=== PATIENT | female | born 1970 | race Caucasian/White ===

== ENCOUNTER → 2017-10-19 13:46 | Outpatient (POV) | payer OTHER, SELFPAY | PROVIDERS: Family Provider Emergency Medicine; PCP Nurse Practitioner Family; Visit Provider Internal Medicine | DX: Z00.00 Encounter for general adult medical examination without abnormal findings (principal) ==

== ENCOUNTER → 2017-11-24 12:55 | Outpatient (CLI) | payer OTHER, SELFPAY ==
[2017-11-24 14:27] VITALS: PULSE 74; PULSE 78
[2017-11-24 14:28] VITALS: BP 115/70; BP 140/85; PULSE 74; PULSE 98; RESP 16; RESP 18; O2SAT 96; O2SAT 97
== END ==
PROVIDERS: Family Provider Emergency Medicine; PCP Nurse Practitioner Family; Visit Provider Internal Medicine
DX: J45.909 Unspecified asthma, uncomplicated (principal)
CPT/HCPCS: 94060; 94618; 94640; 94727; 94729

== ENCOUNTER → 2017-12-10 19:09 | Outpatient (CLI) | payer OTHER, SELFPAY ==
--- NOTE | 2017-12-10 19:12 | XR_ITS ---
XR knee LT 3V COMPARISON: Right knee 06/21/2009 HISTORY: Left knee pain TECHNIQUE: AP lateral and oblique views FINDINGS: There is no fracture or loose body and is no degenerative change. The patella is intact and is no effusion. IMPRESSION: Negative left knee
== END ==
PROVIDERS: PCP Emergency Medicine; Visit Provider Emergency Medicine
DX: M25.562 Pain in left knee (principal)
CPT/HCPCS: 73562

== ENCOUNTER → 2017-12-31 10:07 | Outpatient (CLI) | payer OTHER, SELFPAY ==
[2017-12-31 14:26] LABS: Basophils # 0.1 K/mm3 (0-0.2); Basophils % 0.9 % (0.1-2.0); Eosinophils # 0.2 K/mm3 (0.0-0.4); Hematocrit 34.7 % (37.0-47.0); Lymphocytes # 2.4 K/mm3 (0.7-4.5); Lymphocytes % 40.2 K/mm3 (10-50); Mean Corpuscular HGB Conc 34.4 g/dL (31.8-35.4); Mean Corpuscular Hemoglobin 27.8 pg (27.0-31.2); Mean Corpuscular Volume 80.8 fl (81-99); Mean Platelet Volume 8.5 fl (7.4-10.4); Monocytes # 0.4 K/mm3 (0.1-1.0); Monocytes % 6.8 % (1.7-9.3); Neutrophils # 2.9 K/mm3 (1.8-7.8); Platelet Count 198 K/mm3 (142-424); Red Cell Distribution Width 14.5 % (11.5-17.5)
[2017-12-31 14:37] LABS: Amphetamine/Metha Screen,Urine Negative ng/mL (<1000); Barbiturates Screen,Urine Negative ng/mL (<200); Benzodiazepines Screen,Urine Negative ng/mL (200); Cannabinoid Screen,Urine Negative ng/mL (<50); Cocaine Screen,Urine Negative ng/g (<300); Methadone Screen,Urine Negative ng/mL (<300); Opiate Screen,Urine Negative ng/mL (<300); Phencyclidine Screen,Urine Negative ng/mL (<25)
[2017-12-31 15:08] LABS: Alanine Aminotransferase 76 U/L (12-78); Albumin Level 4.1 gm/dL (3.4-5.0); Albumin/Globulin Ratio 1.1 (1.1-1.8); Alkaline Phosphatase 90 U/L (46-116); Anion Gap 15.6 mEq/L (5-15); Aspartate Amino Transferase 61 U/L (15-37); Bilirubin,Total 0.5 mg/dL (0.2-1.0); Blood Urea Nitrogen 13 mg/dL (7-18); Calcium 9.4 mg/dL (8.5-10.1); Carbon Dioxide 28 mmol/L (21.0-32.0); Chloride 99 mmol/L (98-107); Cholesterol 169 mg/dL (140-200); Creatinine,Serum 1.32 mg/dL (0.55-1.02); Estimated Glomerular Filt Rate 44 ml/min (>60); GFR (African American) 53 ML/MIN (>60); Globulin 3.6 gm/dl (1.3-3.2); Glucose 159 mg/dL (74-106); HDL Cholesterol 28 mg/dL (29-89); LDL Cholesterol 87 mg/dL (0-130); Potassium 3.6 mmoL/L (3.5-5.1); Sodium 139 mmol/L (136-145); T4 (Thyroxine) 9.7 ug/dl (4.7-13.3); Thyroid Stimulating Hormone 2.15 uIU/ml (0.358-3.740); Total Protein,Serum 7.7 gm/dL (6.4-8.2); Triglycerides 269 mg/dL (30-200); VLDL Cholesterol 54 mg/dL (0-40)
[2018-01-01 09:16] LABS: Creatinine, Urine 211.4 mg/dL (Not Estab.); Microalbumin, Urine 8.7 ug/mL (Not Estab.)
[2018-01-01 20:14] LABS: Vitamin B12 292 pg/mL (232-1245); Vitamin D 25 Hydroxy 39.1 ng/mL (30.0-100.0)
== END ==
PROVIDERS: Visit Provider Nurse Practitioner Family
DX: E11.9 Type 2 diabetes mellitus without complications (principal); R53.83 Other fatigue; Z79.899 Other long term (current) drug therapy
CPT/HCPCS: 80053; 80061; 80305; 82043; 82570; 82607; 82652; 83036; 84436; 84443; 85025

== ENCOUNTER → 2018-01-25 13:45 | Outpatient (POV) | payer OTHER, SELFPAY | PROVIDERS: Family Provider Emergency Medicine; PCP Emergency Medicine; Visit Provider Internal Medicine | DX: Z00.00 Encounter for general adult medical examination without abnormal findings (principal) ==

== ENCOUNTER 2018-02-14 15:00 | Outpatient (RCR) | payer OTHER, SELFPAY | END 2018-02-14 15:01 | disposition home or self-care (01) | LOC: PT 15:00 | PROVIDERS: Family Provider Emergency Medicine; PCP Emergency Medicine; Visit Provider Orthopaedic Surgery | DX: S80.02XA Contusion of left knee, initial encounter (principal) | CPT/HCPCS: 97010; 97014; 97033; 97035; 97110; 97163; G0283 ==

== ENCOUNTER → 2018-04-14 15:54 | Outpatient (CLI) | payer OTHER, SELFPAY ==
--- NOTE | 2018-04-14 15:56 | MM_ITS ---
MM Dig screening mamm BI w/CAD ORDERING PHYSICIAN : Bryce Keenan MD PATIENT AGE: 47 years GENDER: Female COMPARISON: January 2016, March 2017 INDICATION: ITS.REASON: Routine Mammogram Screening no hormones. No new complaints. Family history. Paternal grandmother with breast cancer TECHNIQUE: Standard CC and MLO images were obtained. R2 CAD reviewed. FINDINGS: Minimal fibroglandular elements with moderate diffuse fatty replacement yield lower density breast.. No dominant mass nor suspicious calcifications either breast. . No architectural distortion. No significant new findings. CAD computer review highlights no areas of concern either. Bilateral follow-up in one year recommended IMPRESSION: Stable bilateral mammogram with no significant new findings Follow up one year recommended BI-RADS Category: 1 Negative RECOMMENDED FOLLOW-UP: 1YR 1 YEAR FOLLOW-UP (A letter has been sent to the patient regarding results of the study.)
== END ==
PROVIDERS: Family Provider Emergency Medicine; PCP Emergency Medicine; Visit Provider Obstetrics & Gynecology
DX: Z12.31 Encounter for screening mammogram for malignant neoplasm of breast (principal)
CPT/HCPCS: 77067

== ENCOUNTER → 2018-04-21 08:08 | Outpatient (REF) | payer OTHER, SELFPAY ==
[2018-04-21 13:54] LABS: Basophils # 0.1 K/mm3 (0-0.2); Eosinophils # 0.2 K/mm3 (0.0-0.4); Hemoglobin 12.7 g/dL (12.2-16.2); Lymphocytes # 2.4 K/mm3 (0.7-4.5); Lymphocytes % 40.6 K/mm3 (10-50); Mean Corpuscular HGB Conc 32.6 g/dL (31.8-35.4); Mean Corpuscular Hemoglobin 26.6 pg (27.0-31.2); Mean Corpuscular Volume 81.6 fl (81-99); Mean Platelet Volume 8.5 fl (7.4-10.4); Monocytes # 0.3 K/mm3 (0.1-1.0); Monocytes % 5.1 % (1.7-9.3); Neutrophils # 2.9 K/mm3 (1.8-7.8); Neutrophils % 49.2 % (37.0-80.0); Platelet Count 189 K/mm3 (142-424); Red Blood Count 4.78 M/mm3 (4.20-5.40); Red Cell Distribution Width 15.2 % (11.5-17.5)
[2018-04-21 14:28] LABS: Hemoglobin A1C 7.7 % (0.0-7.0)
[2018-04-21 14:47] LABS: Erythrocyte Sedimentation Rate 44 mm/hr (0-20)
[2018-04-21 14:48] LABS: Alanine Aminotransferase 79 U/L (12-78); Albumin/Globulin Ratio 1.1 (1.1-1.8); Alkaline Phosphatase 108 U/L (46-116); Anion Gap 15.4 mEq/L (5-15); Aspartate Amino Transferase 56 U/L (15-37); Bilirubin,Total 0.5 mg/dL (0.2-1.0); Blood Urea Nitrogen 14 mg/dL (7-18); Calcium 9.2 mg/dL (8.5-10.1); Carbon Dioxide 29 mmol/L (21.0-32.0); Chloride 101 mmol/L (98-107); Chol/HDL Ratio 7.8 (1-3.5); Cholesterol 218 mg/dL (140-200); Creatinine,Serum 1.21 mg/dL (0.55-1.02); Estimated Glomerular Filt Rate 48 ml/min (>60); GFR (African American) 58 ML/MIN (>60); Globulin 3.8 gm/dl (1.3-3.2); Glucose 185 mg/dL (74-106); HDL Cholesterol 28 mg/dL (29-89); Potassium 3.4 mmoL/L (3.5-5.1); Sodium 142 mmol/L (136-145); T4 (Thyroxine) 8.5 ug/dl (4.7-13.3); Thyroid Stimulating Hormone 7.08 uIU/ml (0.358-3.740); Total Protein,Serum 7.8 gm/dL (6.4-8.2)
[2018-04-21 14:49] LABS: Triglycerides 461 mg/dL (30-200)
[2018-04-22 09:11] LABS: Vitamin D 25 Hydroxy 28.4 ng/mL (30.0-100.0)
== END ==
LOC: LAB 08:08
PROVIDERS: Visit Provider Nurse Practitioner Family
DX: R53.83 Other fatigue (principal); M79.7 Fibromyalgia; E11.9 Type 2 diabetes mellitus without complications; R59.9 Enlarged lymph nodes, unspecified
CPT/HCPCS: 80053; 80061; 82652; 83036; 84436; 84443; 85025; 85651

== ENCOUNTER → 2018-05-02 13:40 | Outpatient (POV) | payer OTHER, SELFPAY | PROVIDERS: Family Provider Emergency Medicine; PCP Emergency Medicine; Visit Provider Nurse Practitioner Acute Care | DX: Z00.00 Encounter for general adult medical examination without abnormal findings (principal) ==

== ENCOUNTER → 2018-05-23 15:57 | Outpatient (CLI) | payer OTHER, SELFPAY ==
[2018-05-23 16:22] LABS: Basophils # 0.1 K/mm3 (0-0.2); Basophils % 0.9 % (0.1-2.0); Eosinophils # 0.2 K/mm3 (0.0-0.4); Eosinophils % 3.4 % (0.1-12.0); Hematocrit 36.5 % (37.0-47.0); Hemoglobin 12.4 g/dL (12.2-16.2); Lymphocytes # 2.2 K/mm3 (0.7-4.5); Lymphocytes % 32.6 K/mm3 (10-50); Mean Corpuscular HGB Conc 33.9 g/dL (31.8-35.4); Mean Corpuscular Hemoglobin 26.9 pg (27.0-31.2); Mean Corpuscular Volume 79.2 fl (81-99); Mean Platelet Volume 7.5 fl (7.4-10.4); Monocytes # 0.3 K/mm3 (0.1-1.0); Monocytes % 4.9 % (1.7-9.3); Neutrophils # 3.8 K/mm3 (1.8-7.8); Neutrophils % 58.2 % (37.0-80.0); Platelet Count 174 K/mm3 (142-424); Red Blood Count 4.61 M/mm3 (4.20-5.40); White Blood Count 6.6 K/mm3 (4.8-10.8)
[2018-05-23 16:56] LABS: Anion Gap 10.9 mEq/L (5-15); Blood Urea Nitrogen 13 mg/dL (7-18); Carbon Dioxide 32 mmol/L (21.0-32.0); Chloride 102 mmol/L (98-107); Creatinine,Serum 1.12 mg/dL (0.55-1.02); Estimated Glomerular Filt Rate 53 ml/min (>60); GFR (African American) 64 ML/MIN (>60); Glucose 227 mg/dL (74-106); Potassium 3.9 mmoL/L (3.5-5.1); Sodium 141 mmol/L (136-145)
== END ==
PROVIDERS: Nurse Practitioner Family; PCP Emergency Medicine; Visit Provider Otolaryngology
DX: Z01.818 Encounter for other preprocedural examination (principal); D49.2 Neoplasm of unspecified behavior of bone, soft tissue, and skin
CPT/HCPCS: 36415; 80048; 85025; 93005

== ENCOUNTER → 2018-06-30 08:40 | Outpatient (CLI) | payer OTHER, SELFPAY ==
[2018-06-30 09:54] LABS: Blood Urea Nitrogen 11 mg/dL (7-18); Creatinine,Serum 0.96 mg/dL (0.55-1.02); Estimated Glomerular Filt Rate 63 ml/min (>60); GFR (African American) 76 ML/MIN (>60)
== END ==
PROVIDERS: PCP Emergency Medicine; Visit Provider Otolaryngology
DX: L72.11 Pilar cyst (principal)
CPT/HCPCS: 36415; 82565; 84520

== ENCOUNTER → 2018-07-01 13:24 | Outpatient (CLI) | payer OTHER, SELFPAY ==
--- NOTE | 2018-07-01 13:27 | CT_ITS ---
CT soft tissue neck w con Ordering Physician: Luis Felipe Davis MD Patient Age: 48 years: Female HISTORY: ITS.REASON: Pilar Cyst Palpable Knot on left side of neck. 2 months. TECHNIQUE: Axial Helical CT scanning performed the neck following 75 cc Isovue 370. Axial sagittal and coronal reconstructions performed on CT workstation.. All CT scans at this facility used one or more dose reduction techniques , viz: automatic exposure control, ma/Kv adjustment per patient's size, (including targeted exam where dose matched to the indication; i.e. head); or iterative reconstruction technique COMPARISON :No previous neck studies head CT November 2008 is of little benefit is not included FINDINGS A skin marker is placed over the palpable area at the left neck. No significant findings are seen here. There may be slightly generous fatty tissue which could reflect underlying lipoma possibly although no discrete well-defined lipoma evident.. No significant adenopathy or mass. Only a few small nodes at the posterior cervical chain bilateral.. One of the more generous nodes is seen just beneath the skin marker/palpable area. This benign-appearing reactive nodes at posterior left neck measures up to 10 mm length X 7 mm x 5 mm. Nonspecific benign-appearing nodule, node with central lucency reflecting a normal medullary fat. Otherwise note the sternocleidomastoid muscle may be slightly generous of posteriorly on the left than right but this is merely anatomical variation. See no discrete skin lesion. No Epidermal inclusion cyst or or pilar cyst identified Otherwise Scattered small/moderate benign nodes in neck bilateral. For example a small node is seen just inferior to the angle of mandible and left a few small nodes at the anterior cervical chain deep to the parotid. Scattered small nodes throughout posterior cervical chain bilaterally. No significant adenopathy or mass is seen at the mid and lower neck. Thyroid appears normal. Epiglottis hypopharynx appear satisfactory Note generous volume parotid glands bilaterally.. Symmetric Anatomical variation. No focal lesions or findings here. Slightly generous volume symmetric submandibular glands also noted but these within normal limits no significant plaque or stenosis at the proximal internal carotid arteries. Only tiny minimal calcified plaque at the right carotid bifurcation. The patient near edentulous with only a few anterior incisor is remaining at mandible.Mandible intact with right and left TMJ intact.. Mastoid air cells are well-developed and clear. IACs middle air unremarkable. Apices of lungs clear. Base of skull intact. Only Trace mucosal thickening inferior left maxillary sinus otherwise maxillary sinuses are clear. Mild mucosal thickening left ethmoid air cell.. note: This study was dictated with a voice-recognition system. There may be typographical error is related to such. If they are significant please notify us for corrections IMPRESSION 1. A skin marker was placed over the palpable area. No significant findings here.. Only note tiny 10 mm length X 7 mm lymph benign-appearing lymph node, just deep to this skin marker at palpable area.,. Conceivably this modest size benign node could be palpable, but fairly deep with benign appearance, unimpressive.. Not of significant concern.. Also note slightly redundant tissue with slight generous fatty tissue deep to the palpable area.- This appearance could reflects small underlying lipoma. Again No area of significant concern. 2. . Otherwise Scattered small reactive nodes at neck bilaterally but no significant adenopathy or mass.. No significant neck pathology 3. Incidental note Generous volume low density fatty parotid bilaterally.... Generous volume submandibul
== END ==
PROVIDERS: PCP Emergency Medicine; Visit Provider Otolaryngology
DX: L72.11 Pilar cyst (principal)
CPT/HCPCS: 70491

== ENCOUNTER → 2018-08-08 11:22 | Outpatient (POV) | payer OTHER, SELFPAY | PROVIDERS: Visit Provider Nurse Practitioner Acute Care | DX: Z00.00 Encounter for general adult medical examination without abnormal findings (principal) ==

== ENCOUNTER → 2018-08-08 14:58 | Outpatient (CLI) | payer OTHER, SELFPAY ==
[2018-08-11 12:37] LABS: Occult Blood,Stool Positive (Negative)
== END ==
PROVIDERS: Visit Provider Internal Medicine Gastroenterology
DX: K92.1 Melena (principal)
CPT/HCPCS: 82272; G0328

== ENCOUNTER → 2018-08-09 13:30 | Outpatient (CLI) | payer OTHER, SELFPAY ==
[2018-08-11 12:37] LABS: Occult Blood,Stool Positive (Negative)
== END ==
PROVIDERS: Visit Provider Internal Medicine Gastroenterology
DX: K92.1 Melena
CPT/HCPCS: 82272; G0328

== ENCOUNTER → 2018-08-10 22:28 | Outpatient (CLI) | payer OTHER, SELFPAY ==
[2018-08-11 12:37] LABS: Occult Blood,Stool Positive (Negative)
== END ==
PROVIDERS: Visit Provider Internal Medicine Gastroenterology
DX: K92.1 Melena (principal)
CPT/HCPCS: 82272; G0328

== ENCOUNTER → 2018-08-13 13:57 | Outpatient (CLI) | payer OTHER, SELFPAY ==
[2018-08-13 15:53] LABS: Basophils # 0.1 K/mm3 (0-0.2); Eosinophils # 0.2 K/mm3 (0.0-0.4); Eosinophils % 2.1 % (0.1-12.0); Hematocrit 43.2 % (37.0-47.0); Hemoglobin 14.3 g/dL (12.2-16.2); Lymphocytes # 2.9 K/mm3 (0.7-4.5); Lymphocytes % 33.1 % (10-50); Mean Corpuscular HGB Conc 33.1 g/dL (31.8-35.4); Mean Corpuscular Volume 78.5 fl (81-99); Monocytes # 0.3 K/mm3 (0.1-1.0); Monocytes % 3.8 % (1.7-9.3); Neutrophils # 5.2 K/mm3 (1.8-7.8); Neutrophils % 59.9 % (37.0-80.0); Platelet Count 273 K/mm3 (142-424); Red Blood Count 5.51 M/mm3 (4.20-5.40); Red Cell Distribution Width 15.3 % (11.5-17.5); White Blood Count 8.6 K/mm3 (4.8-10.8)
[2018-08-13 16:09] LABS: Alanine Aminotransferase 86 U/L (12-78); Albumin Level 4.5 gm/dL (3.4-5.0); Albumin/Globulin Ratio 0.9 (1.1-1.8); Alkaline Phosphatase 157 U/L (46-116); Amylase 33 U/L (25-115); Anion Gap 21.4 mEq/L (5-15); Aspartate Amino Transferase 65 U/L (15-37); Bilirubin,Total 0.7 mg/dL (0.2-1.0); Blood Urea Nitrogen 15 mg/dL (7-18); Calcium 9.8 mg/dL (8.5-10.1); Carbon Dioxide 24 mmol/L (21.0-32.0); Chloride 90 mmol/L (98-107); Creatinine,Serum 1.72 mg/dL (0.55-1.02); Estimated Glomerular Filt Rate 32 ml/min (>60); GFR (African American) 39 ML/MIN (>60); Globulin 4.8 gm/dl (1.3-3.2); Glucose 243 mg/dL (74-106); Lipase 152 u/L (73-393); Potassium 3.4 mmoL/L (3.5-5.1); Sodium 132 mmol/L (136-145); Total Protein,Serum 9.3 gm/dL (6.4-8.2)
[2018-08-13 16:24] LABS: Troponin I < 0.02 ng/ml (0.00-0.06)
== END ==
PROVIDERS: PCP Emergency Medicine; Visit Provider Emergency Medicine
DX: R10.9 Unspecified abdominal pain (principal)
CPT/HCPCS: 80053; 82150; 83690; 84484; 85025

== ENCOUNTER → 2018-08-26 18:16 | Outpatient (CLI) | payer OTHER, SELFPAY ==
[2018-08-29 18:26] LABS: C-Peptide 11.7 ng/mL (1.1-4.4)
== END ==
PROVIDERS: Visit Provider Emergency Medicine
DX: E11.9 Type 2 diabetes mellitus without complications (principal)
CPT/HCPCS: 84681

== ENCOUNTER → 2018-10-10 08:38 | Outpatient (CLI) | payer BC, SELFPAY ==
--- NOTE | 2018-10-10 08:47 | XR_ITS ---
XR chest 2V HISTORY: Nonsmoker .: CONGESTION,COUGH ORDERING PHYSICIAN: Anshul Stephen MD PATIENT AGE: 48 years Technique: PA and lateral chest COMPARISON: 09/11/2018 2 view chest. 02/11/2018 2 view chest FINDINGS: The lungs are well expanded and clear with no focal pneumonia or no discrete acute findings. Upper normal Central markings upper normal prominence in could reflect mild central airway inflammatory changes & bronchitis but unimpressive. Heart tremaine and mediastinal structures satisfactory. No pleural effusion. No pneumothorax. Chest wall and T-spine appear intact. IMPRESSION. No focal pneumonia. Nothing definitely acute. Central markings upper normal prominence.- Good conceivably reflect mild bronchitis but minimal & will give more nonspecific
== END ==
PROVIDERS: PCP Emergency Medicine; Visit Provider Emergency Medicine
DX: R05 Cough (principal); R09.89 Other specified symptoms and signs involving the circulatory and respiratory systems
CPT/HCPCS: 71046

== ENCOUNTER → 2018-10-10 09:03 | Outpatient (POV) | payer BC, SELFPAY | PROVIDERS: Visit Provider Nurse Practitioner Acute Care | DX: Z00.00 Encounter for general adult medical examination without abnormal findings (principal) ==

== ENCOUNTER → 2018-11-24 08:49 | Outpatient (CLI) | payer BC, SELFPAY ==
--- NOTE | 2018-11-24 08:55 | CT_ITS ---
CT abdomen pelvis w con CLINICAL INDICATION: Melena, anemia ITS.REASON: MELENA, ANEMIA ORDERING PHYSICIAN: Moo Shields MD PATIENT AGE: 48 years COMPARISON: 02/11/2018 TECHNIQUE: Axial images obtained with sagittal and coronal reformats. All CT scans at the facility use one or more dose reduction, viz: automated exposure control, ma/kV adjustment per patient size (including targeted exams where dose is matched to indication, i.e. head), or iterative reconstruction technique. Double phase imaging is performed with arterial and portal venous phase PROCEDURE: Oral Contrast: Enteroview IV Contrast: 75 mL's Optiray 350. FINDINGS: The lung bases are clear. There are postcholecystectomy changes with diffuse fatty liver. No enhancing liver lesions are evident. The spleen, adrenal glands, and pancreas have an unremarkable appearance. There is a 1.6-1.1 cm lymph node superior to the head of the pancreas appear stable. Other smaller periportal nodes are present. Stable. No renal or ureteral calculi. No hydronephrosis. Unremarkable appendix. The small bowel has an unremarkable appearance. No evidence of small bowel obstruction. No focal mucosal thickening or masses or strictures apparent. Terminal ileum has an unremarkable appearance. No fistulas or abscess. There is some mild diffuse thickening of the jejunum in the left upper quadrant. This may be due to underdistention. Mild enteritis is also a consideration. The remaining small bowel has an unremarkable appearance. Prior hysterectomy. No pelvic mass or abnormal fluid collection. No evidence of diverticulitis. IMPRESSION: 1. There is some mild nonspecific thickening of the mucosa in the jejunum in the left upper quadrant. This could be related to mild enteritis or underdistention. No focal constricting lesions are evident. The terminal ileum has an unremarkable appearance. No small bowel masses or other significant anomalies are evident. 2. Fatty liver
[2018-11-24 09:46] LABS: Blood Urea Nitrogen 19 mg/dL (7-18); Creatinine,Serum 1.15 mg/dL (0.55-1.02); Estimated Glomerular Filt Rate 51 ml/min (>60); GFR (African American) 61 ML/MIN (>60)
--- NOTE | 2018-11-24 10:23 | HMH.ITSHM ---
Current Home Medications as stated by this patient Manisha Leija or assisted sales representative. []DUBEXETINE,FUROSEMIDE,VICTOZA,JANRET METOCLOPRAMIDE,PRAMIPEXOLE LYRICA SIMVASTATIN,ZOLPIDEM
== END ==
PROVIDERS: PCP Emergency Medicine; Visit Provider Internal Medicine Gastroenterology
DX: K92.1 Melena (principal); D64.9 Anemia, unspecified
CPT/HCPCS: 36415; 74177; 82565; 84520

== ENCOUNTER → 2019-01-26 01:10 | Outpatient (CLI) | payer BC, SELFPAY | PROVIDERS: PCP Emergency Medicine; Visit Provider Emergency Medicine | DX: R05 Cough (principal) | CPT/HCPCS: 87070; 87077; 87186; 87205 ==

== ENCOUNTER → 2019-01-31 09:16 | Outpatient (CLI) | payer BC, SELFPAY ==
[2019-01-31 13:07] LABS: Alanine Aminotransferase 59 U/L (12-78); Albumin Level 3.5 gm/dL (3.4-5.0); Alkaline Phosphatase 144 U/L (46-116); Anion Gap 13.4 mEq/L (5-15); Aspartate Amino Transferase 45 U/L (15-37); Bilirubin,Total 0.5 mg/dL (0.2-1.0); Blood Urea Nitrogen 10 mg/dL (7-18); Calcium 8.9 mg/dL (8.5-10.1); Carbon Dioxide 30 mmol/L (21.0-32.0); Chloride 104 mmol/L (98-107); Chol/HDL Ratio 6.1 (1-3.5); Cholesterol 177 mg/dL (140-200); Creatinine,Serum 1.03 mg/dL (0.55-1.02); Estimated Glomerular Filt Rate 58 ml/min (>60); GFR (African American) 70 ML/MIN (>60); Globulin 3.4 gm/dl (1.3-3.2); Glucose 146 mg/dL (74-106); HDL Cholesterol 29 mg/dL (29-89); LDL Cholesterol 83 mg/dL (0-130); Potassium 3.4 mmoL/L (3.5-5.1); Sodium 144 mmol/L (136-145); Total Protein,Serum 6.9 gm/dL (6.4-8.2); Triglycerides 326 mg/dL (30-200); VLDL Cholesterol 65 mg/dL (0-40)
[2019-02-01 10:14] LABS: Creatinine, Urine 211.7 mg/dL (Not Estab.); Microalbumin, Urine 18.6 ug/mL (Not Estab.)
== END ==
PROVIDERS: Visit Provider Internal Medicine Endocrinology, Diabetes & Metabolism
DX: E11.65 Type 2 diabetes mellitus with hyperglycemia (principal); E11.29 Type 2 diabetes mellitus with other diabetic kidney complication; N18.3 Chronic kidney disease, stage 3 (moderate); Z79.4 Long term (current) use of insulin
CPT/HCPCS: 36415; 80053; 80061; 82043; 82570

== ENCOUNTER 2019-02-02 14:33 | Emergency (ER) | payer BC, SELFPAY ==
[2019-02-02 14:35] VITALS: BMI 31.5
--- NOTE | 2019-02-02 14:35 | XR_ITS ---
XR chest 2V HISTORY: ITS.REASON: shortness of air ORDERING PHYSICIAN: Anshul Haq MD PATIENT AGE: 48 years COMPARISON: 10/10/2018 FINDINGS: The cardiomediastinal silhouette and pulmonary vascularity are within normal limits. The lungs are clear without infiltrates, suspicious nodules, or pleural effusions. No acute bony abnormalities. IMPRESSION: Negative chest, no acute finding
[2019-02-02 14:39] VITALS: BP 113/72; PULSE 79; RESP 16; TEMP 36.7; O2SAT 99; BMI 31.8
[2019-02-02 15:05] LABS: Basophils # 0.1 K/mm3 (0-0.2); Basophils % 1.2 % (0.1-2.0); Eosinophils # 0.2 K/mm3 (0.0-0.4); Eosinophils % 3.3 % (0.1-12.0); Hematocrit 35.2 % (37.0-47.0); Hemoglobin 12.4 g/dL (12.2-16.2); Lymphocytes # 2.2 K/mm3 (0.7-4.5); Lymphocytes % 42.8 % (10-50); Mean Corpuscular HGB Conc 35.2 g/dL (31.8-35.4); Mean Corpuscular Hemoglobin 26.2 pg (27.0-31.2); Mean Corpuscular Volume 74.4 fl (81-99); Monocytes # 0.2 K/mm3 (0.1-1.0); Monocytes % 4.7 % (1.7-9.3); Neutrophils # 2.4 K/mm3 (1.8-7.8); Platelet Count 180 K/mm3 (142-424); Red Blood Count 4.74 M/mm3 (4.20-5.40); Red Cell Distribution Width 14.7 % (11.5-17.5); White Blood Count 5.1 K/mm3 (4.8-10.8)
[2019-02-02 15:12] LABS: Alanine Aminotransferase 65 U/L (12-78); Albumin Level 3.4 gm/dL (3.4-5.0); Albumin/Globulin Ratio 0.9 (1.1-1.8); Alkaline Phosphatase 141 U/L (46-116); Anion Gap 12.1 mEq/L (5-15); Aspartate Amino Transferase 53 U/L (15-37); Bilirubin,Total 0.6 mg/dL (0.2-1.0); Blood Urea Nitrogen 12 mg/dL (7-18); Carbon Dioxide 30 mmol/L (21.0-32.0); Chloride 104 mmol/L (98-107); Creatinine Clearance Estimated 87 mL/min (50-200); Creatinine,Serum 1.04 mg/dL (0.55-1.02); Estimated Glomerular Filt Rate 57 ml/min (>60); GFR (African American) 69 ML/MIN (>60); Globulin 3.8 gm/dl (1.3-3.2); Glucose 120 mg/dL (74-106); Potassium 3.1 mmoL/L (3.5-5.1); Sodium 143 mmol/L (136-145); Total Protein,Serum 7.2 gm/dL (6.4-8.2)
--- NOTE | 2019-02-02 15:25 | HMH.EDGENADL ---
ED Disposition Clinical Impression: Respiratory tract infection Disposition: Home, Self-Care Condition on Discharge: Good Instructions: DI for Shortness of Breath Prescriptions: levoFLOXacin [Levaquin 750mg tablet] 750 mg PO DAILY #5 tab predniSONE [Prednisone 50mg Tab] 50 mg PO DAILY 5 Days #5 tab Referrals: Anshul Stephen MD [Primary Care Provider] - - Critical Care Critical Care Time: No Attestation: On 02/02/19, the high probability of a clinically significant, sudden or life threatening deterioration of the following system(s) required my full and direct attention, intervention and personal management. The time I documented below is in addition to time spent performing reported procedures but includes the following listed in this critical care notation. Medical Decision Making - Medical Records Medical records reviewed: Yes: I reviewed the patient's medical records. - Efren Inquiry Pt receiving controlled substance: No Efren was queried for this patient: No Vital Signs: 02/02/19 14:39 02/02/19 15:28 02/02/19 15:39 Temperature 98.0 F Temperature Source Temporal Artery Scan Pulse Rate Pulse Rate [Right Brachial] 79 71 70 Respiratory Rate 16 Blood Pressure [Right Arm] 113/72 107/69 L 104/78 L Blood Pressure Mean [Right Arm] 85 81 86 Blood Pressure Source [Right Arm] Automatic Cuff Blood Pressure Position [Right Arm] Sitting 02 Sat by Pulse Oximetry 99 94 L 98 Oxygen Delivery Method Room Air 02/02/19 15:55 02/02/19 17:21 Temperature Temperature Source Pulse Rate 67 Pulse Rate [Right Brachial] 71 Respiratory Rate Blood Pressure [Right Arm] 120/85 Blood Pressure Mean [Right Arm] 96 Blood Pressure Source [Right Arm] Blood Pressure Position [Right Arm] 02 Sat by Pulse Oximetry 98 98 Oxygen Delivery Method Room Air - Lab Data Lab results reviewed: Yes: I reviewed the patient's lab results. Lab Results 02/02/19 14:45: WBC 5.1, RBC 4.74, Hgb 12.4, Hct 35.2 L, MCV 74.4 L, MCH 26.2 L, MCHC 35.2, RDW 14.7, Plt Count 180, MPV 8.0, Neut % (Auto) 48.0, Lymph % (Auto) 42.8, Laurens % (Auto) 4.7, Eos % (Auto) 3.3, Baso % (Auto) 1.2, Neut # (Auto) 2.4, Lymph # (Auto) 2.2, Laurens # (Auto) 0.2, Eos # (Auto) 0.2, Baso # (Auto) 0.1 02/02/19 14:45: Sodium 143, Potassium 3.1 L, Chloride 104, Carbon Dioxide 30, Anion Gap 12.1, BUN 12, Creatinine 1.04 H, Estimated Creat Clear 87, Estimated GFR 57 L, Est GFR ( Amer) 69, Glucose 120 H, Calcium 9.0, Total Bilirubin 0.6, AST 53 H, ALT 65, Alkaline Phosphatase 141 H, Total Protein 7.2, Albumin 3.4, Globulin 3.8 H, Albumin/Globulin Ratio 0.9 L 02/02/19 14:45: Lactate 1.0 02/02/19 14:45: Influenza Type A Ag Negative, Influenza Type B Ag Negative Result diagrams: 02/02/19 14:45 02/02/19 14:45 Orders (Tests/Meds): ED MEDICATIONS Generic Name Dose Route Start Last Admin Trade Name Freq PRN Reason Stop Dose Admin Levofloxacin/Dextrose 750 mg in 150 mls @ 100 mls/hr 02/02/19 15:45 02/02/19 15:58 Levofloxacin 750mg/150ml Premix IV 02/16/19 15:44 100 mls/hr Q24H ROCKY Administration Protocol Discontinued Medications Generic Name Dose Route Start Last Admin Trade Name Freq PRN Reason Stop Dose Admin Albuterol/Ipratropium 3 ml 02/02/19 14:57 02/02/19 15:15 Duoneb 3ml Neb IH 02/02/19 14:58 3 ml ONCE ONE Administration Ketorolac Tromethamine 30 mg 02/02/19 16:46 02/02/19 16:47 Toradol 30mg/Ml Vial IV 02/02/19 16:47 30 mg ONCE ONE Administration Methylprednisolone Sodium Succinate 125 mg 02/02/19 15:26 02/02/19 15:28 Solu-Medrol 125mg/2ml Vial IV 02/02/19 15:27 125 mg ONCE ONE Administration Potassium Chloride 40 meq 02/02/19 15:26 02/02/19 15:58 Klor-Con 20meq Tablet PO 02/02/19 15:27 40 meq ONCE ONE Administration ORDERS Category Date Time Status Blood Culture Stat Micro 02/02/19 14:45 Received General Adult HPI - General Chief complaint: Sh
[2019-02-02 15:28] VITALS: BP 107/69; PULSE 71; O2SAT 94
--- NOTE | 2019-02-02 15:34 | ED_ITS ---
ED Disposition Clinical Impression: Respiratory tract infection Disposition: Home, Self-Care Condition on Discharge: Good Instructions: DI for Shortness of Breath Prescriptions: levoFLOXacin [Levaquin 750mg tablet] 750 mg PO DAILY #5 tab predniSONE [Prednisone 50mg Tab] 50 mg PO DAILY 5 Days #5 tab Referrals: Anshul Stephen MD [Primary Care Provider] - - Critical Care Critical Care Time: No Attestation: On 02/02/19, the high probability of a clinically significant, sudden or life threatening deterioration of the following system(s) required my full and direct attention, intervention and personal management. The time I documented below is in addition to time spent performing reported procedures but includes the following listed in this critical care notation. Medical Decision Making - Medical Records Medical records reviewed: Yes: I reviewed the patient's medical records. - Efren Inquiry Pt receiving controlled substance: No Efren was queried for this patient: No Vital Signs: 02/02/19 14:39 02/02/19 15:28 02/02/19 15:39 Temperature 98.0 F Temperature Source Temporal Artery Scan Pulse Rate Pulse Rate [Right Brachial] 79 71 70 Respiratory Rate 16 Blood Pressure [Right Arm] 113/72 107/69 L 104/78 L Blood Pressure Mean [Right Arm] 85 81 86 Blood Pressure Source [Right Arm] Automatic Cuff Blood Pressure Position [Right Arm] Sitting 02 Sat by Pulse Oximetry 99 94 L 98 Oxygen Delivery Method Room Air 02/02/19 15:55 02/02/19 17:21 Temperature Temperature Source Pulse Rate 67 Pulse Rate [Right Brachial] 71 Respiratory Rate Blood Pressure [Right Arm] 120/85 Blood Pressure Mean [Right Arm] 96 Blood Pressure Source [Right Arm] Blood Pressure Position [Right Arm] 02 Sat by Pulse Oximetry 98 98 Oxygen Delivery Method Room Air - Lab Data Lab results reviewed: Yes: I reviewed the patient's lab results. Lab Results 02/02/19 14:45: WBC 5.1, RBC 4.74, Hgb 12.4, Hct 35.2 L, MCV 74.4 L, MCH 26.2 L, MCHC 35.2, RDW 14.7, Plt Count 180, MPV 8.0, Neut % (Auto) 48.0, Lymph % (Auto) 42.8, Ramsey % (Auto) 4.7, Eos % (Auto) 3.3, Baso % (Auto) 1.2, Neut # (Auto) 2.4, Lymph # (Auto) 2.2, Ramsey # (Auto) 0.2, Eos # (Auto) 0.2, Baso # (Auto) 0.1 02/02/19 14:45: Sodium 143, Potassium 3.1 L, Chloride 104, Carbon Dioxide 30, Anion Gap 12.1, BUN 12, Creatinine 1.04 H, Estimated Creat Clear 87, Estimated GFR 57 L, Est GFR ( Amer) 69, Glucose 120 H, Calcium 9.0, Total Bilirubin 0.6, AST 53 H, ALT 65, Alkaline Phosphatase 141 H, Total Protein 7.2, Albumin 3.4, Globulin 3.8 H, Albumin/Globulin Ratio 0.9 L 02/02/19 14:45: Lactate 1.0 02/02/19 14:45: Influenza Type A Ag Negative, Influenza Type B Ag Negative Result diagrams: 02/02/19 14:45 02/02/19 14:45 Orders (Tests/Meds): ED MEDICATIONS Generic Name Dose Route Start Last Admin Trade Name Freq PRN Reason Stop Dose Admin Levofloxacin/Dextrose 750 mg in 150 mls @ 100 mls/hr 02/02/19 15:45 02/02/19 15:58 Levofloxacin 750mg/150ml Premix IV 02/16/19 15:44 100 mls/hr Q24H ROCKY Administration Protocol Discontinued Medic
--- NOTE | 2019-02-02 15:35 | CT_ITS ---
CT chest wo con HISTORY: Cough, recurrent pneumonia ITS.REASON: recurrent pneumonia ORDERING PHYSICIAN: Anshul Haq MD PATIENT AGE: 48 years COMPARISON: None Technique: Axial images obtained. Sagittal, and coronal reformatted images are also generated and reviewed. All CT scans at the facility use one or more dose reduction, viz: automated exposure control, ma/kV adjustment per patient size (including targeted exams where dose is matched to indication, i.e. head), or iterative reconstruction technique. FINDINGS: HEART: Unremarkable. Normal heart size. No significant pericardial effusion. MEDIASTINAL AND HILAR STRUCTURES: No mediastinal or hilar mass evident. No dominant adenopathy. PULMONARY ARTERIES: No pulmonary embolus evident. AORTA: No acute finding. No thoracic aortic aneurysm or dissection evident LUNGS: Unremarkable. No mass or consolidation. PLEURAL SPACES: No significant effusion. No evidence of pneumothorax. BONY STRUCTURES: No acute bony abnormalities apparent LYMPH NODES: No enlarged lymph nodes evident UPPER ABDOMEN: There is diffuse fatty liver infiltration. There has been prior cholecystectomy ADDITIONAL FINDINGS: No other significant abnormalities IMPRESSION: No acute finding of the chest. No evidence of pneumonia or other significant anomalies
[2019-02-02 15:39] VITALS: BP 104/78; PULSE 70; O2SAT 98
[2019-02-02 15:55] VITALS: PULSE 67; O2SAT 98
[2019-02-02 17:21] VITALS: BP 120/85; PULSE 71; O2SAT 98
[2019-02-02 17:40] VITALS: BP 118/75; PULSE 67; RESP 18; TEMP 36.7
== END 2019-02-02 17:43 | disposition home or self-care (01) ==
PROVIDERS: Emergency Provider Emergency Medicine; PCP Emergency Medicine
DX: J06.9 Acute upper respiratory infection, unspecified (principal); E11.9 Type 2 diabetes mellitus without complications; K21.9 Gastro-esophageal reflux disease without esophagitis; E78.5 Hyperlipidemia, unspecified; Z87.891 Personal history of nicotine dependence
CPT/HCPCS: 71046; 71250; 80053; 83605; 85025; 87040; 87275; 87276; 96365; 96375; 99284; J1956

== ENCOUNTER → 2019-02-06 13:51 | Outpatient (CLI) | payer BC, SELFPAY ==
[2019-02-06 15:00] LABS: Basophils % 0.2 % (0.1-2.0); Eosinophils % 0.4 % (0.1-12.0); Hematocrit 37.1 % (37.0-47.0); Hemoglobin 12.9 g/dL (12.2-16.2); Lymphocytes # 1.1 K/mm3 (0.7-4.5); Lymphocytes % 13.4 % (10-50); Mean Corpuscular HGB Conc 34.7 g/dL (31.8-35.4); Mean Corpuscular Hemoglobin 26.9 pg (27.0-31.2); Mean Corpuscular Volume 77.7 fl (81-99); Mean Platelet Volume 8.1 fl (7.4-10.4); Monocytes # 0.4 K/mm3 (0.1-1.0); Monocytes % 4.2 % (1.7-9.3); Neutrophils # 6.9 K/mm3 (1.8-7.8); Neutrophils % 81.8 % (37.0-80.0); Platelet Count 199 K/mm3 (142-424); Red Blood Count 4.77 M/mm3 (4.20-5.40); Red Cell Distribution Width 14.7 % (11.5-17.5); White Blood Count 8.4 K/mm3 (4.8-10.8)
[2019-02-06 16:10] LABS: Alanine Aminotransferase 64 U/L (12-78); Albumin Level 3.8 gm/dL (3.4-5.0); Albumin/Globulin Ratio 1.1 (1.1-1.8); Alkaline Phosphatase 160 U/L (46-116); Anion Gap 17.3 mEq/L (5-15); Aspartate Amino Transferase 37 U/L (15-37); Bilirubin,Total 0.4 mg/dL (0.2-1.0); Blood Urea Nitrogen 25 mg/dL (7-18); Calcium 8.9 mg/dL (8.5-10.1); Carbon Dioxide 25 mmol/L (21.0-32.0); Chloride 94 mmol/L (98-107); Chol/HDL Ratio 5.9 (1-3.5); Cholesterol 217 mg/dL (140-200); Creatinine,Serum 1.42 mg/dL (0.55-1.02); Estimated Glomerular Filt Rate 40 ml/min (>60); GFR (African American) 48 ML/MIN (>60); Globulin 3.6 gm/dl (1.3-3.2); HDL Cholesterol 37 mg/dL (29-89); Potassium 3.3 mmoL/L (3.5-5.1); Sodium 133 mmol/L (136-145); T4 (Thyroxine) 9.3 ug/dl (4.7-13.3); Thyroid Stimulating Hormone 1.41 uIU/ml (0.358-3.740); Total Protein,Serum 7.4 gm/dL (6.4-8.2)
[2019-02-06 16:28] LABS: Triglycerides 475 mg/dL (30-200)
[2019-02-06 16:29] LABS: Glucose 545 mg/dL (74-106)
[2019-02-06 18:11] LABS: Hemoglobin A1C 8.4 % (0.0-7.0)
[2019-02-10 06:20] LABS: Vitamin D 25 Hydroxy 25.6 ng/mL (30.0-100.0)
== END ==
PROVIDERS: Visit Provider Physician Assistant
DX: E87.6 Hypokalemia (principal); E11.9 Type 2 diabetes mellitus without complications
CPT/HCPCS: 80053; 80061; 82652; 83036; 84436; 84443; 85025

== ENCOUNTER → 2019-02-13 11:25 | Outpatient (CLI) | payer BC, SELFPAY ==
[2019-02-13 13:50] LABS: Erythrocyte Sedimentation Rate 24 mm/hr (0-20)
[2019-02-14 12:12] LABS: Anti-Centromere B Antibodies <0.2 AI (0.0-0.9); Anti-Jo-1 <0.2 AI (0.0-0.9); Anti-Smith Antibody <0.2 AI (0.0-0.9); Antichromatin Antibodies 0.2 AI (0.0-0.9); Antiscleroderma-70 Antibodies <0.2 AI (0.0-0.9); RNP Antibodies <0.2 AI (0.0-0.9); Sjogren's Anti-SS-A <0.2 AI (0.0-0.9); Sjogren's Anti-SS-B <0.2 AI (0.0-0.9)
[2019-02-14 19:57] LABS: Anti-DNA (DS) Ab Qn 13 IU/mL (0-9); Folate 11.3 ng/mL (>3.0); Vitamin B12 456 pg/mL (232-1245); Vitamin D 25 Hydroxy 35.3 ng/mL (30.0-100.0)
== END ==
PROVIDERS: Visit Provider Psychiatry & Neurology Neurology
DX: R41.3 Other amnesia (principal)
CPT/HCPCS: 36415; 82607; 82652; 82746; 85651; 86225; 86235

== ENCOUNTER → 2019-05-18 09:17 | Outpatient (CLI) | payer BC, SELFPAY ==
--- NOTE | 2019-05-18 09:20 | MM_ITS ---
PROCEDURE: MM DIG SCREENING MAMM BI W/CAD Patient Age:48Y CLINICAL INDICATION: routine screening mammogram routine screening mammogram. No hormones but no new complaints but hysterectomy. Family history: Paternal grandmother with breast cancer premenopausal COMPARISON: MM MOBILE MAMMO DIGITAL SCREEN W CAD RIKA from 03/23/2013 [facility] DIG MAMM-SCREEN RIKA from 12/28/2014 [facility] DIG MAMM-DX UNI ADD VIEWS-RT from 01/15/2015 [facility] DIG MAMM-SCREEN RIKA from 01/20/2016 [facility] DIG MAMM-SCREEN RIKA W/CAD from 04/02/2017 [facility] MM Dig screening mamm BI w/CAD from 04/14/2018 TECHNIQUE: Standard CC and MLO images were obtained. R2 CAD reviewed. FINDINGS: Low-density breast with minimal residual fibroglandular elements. Generalized fatty replacement low breast density... Regression of minimal fibroglandular elements over the series of available exams dating back to 2012 2014. No new dominant or suspicious mass. No suspicious calcifications. Bilateral follow-up 1 year recommended. IMPRESSION: Stable mammogram with no new areas of concern. BI-RAD Category: 1 Negative FOLLOW-UP: 1YR 1 Year Follow-up The (A letter has been sent to the patient regarding results of the study.) Dictated by: Jarrett Donnelly MD 05/22/2019 11:12 Electronically signed by Jarrett Donnelly MD in [place] 05/22/2019 11:12
== END ==
PROVIDERS: PCP Emergency Medicine; Visit Provider Nurse Practitioner Obstetrics & Gynecology
DX: Z12.31 Encounter for screening mammogram for malignant neoplasm of breast (principal)
CPT/HCPCS: 77067

== ENCOUNTER → 2019-06-26 08:24 | Outpatient (CLI) | payer BC, SELFPAY ==
--- NOTE | 2019-06-26 08:27 | XR_ITS ---
PROCEDURE: XR HAND LT MIN 3V CLINICAL INDICATION: ring finger pain COMPARISON: HANDL3 HAND-LT-3 VIEWS from 07/08/2014 FINDINGS: No fracture or dislocation. No lytic or blastic change. There is normal mineralization. The joint spaces are well-preserved. No significant degenerative/arthritic changes. No erosive changes evident. Other findings:There is a bandlike area of slight increased density over the distal aspect of the proximal phalanx of the 4th digit consistent with something up on the patient. This however does not obscure bony detail. IMPRESSION: No acute findings. Dictated by: Lai Benz MD 06/26/2019 10:30 Electronically signed by Lai Benz MD in [place] 06/26/2019 10:30
[2019-06-26 09:59] LABS: Basophils # 0.1 K/mm3 (0-0.2); Basophils % 0.9 % (0.1-2.0); Eosinophils # 0.3 K/mm3 (0.0-0.4); Eosinophils % 3.3 % (0.1-12.0); Hematocrit 36.8 % (37.0-47.0); Hemoglobin 12.4 g/dL (12.2-16.2); Lymphocytes % 25.5 % (10-50); Mean Corpuscular HGB Conc 33.8 g/dL (31.8-35.4); Mean Corpuscular Hemoglobin 26.7 pg (27.0-31.2); Mean Corpuscular Volume 79.1 fl (81-99); Mean Platelet Volume 8.5 fl (7.4-10.4); Monocytes # 0.3 K/mm3 (0.1-1.0); Monocytes % 4.1 % (1.7-9.3); Neutrophils # 5.2 K/mm3 (1.8-7.8); Neutrophils % 66.2 % (37.0-80.0); Platelet Count 196 K/mm3 (142-424); Red Blood Count 4.66 M/mm3 (4.20-5.40); Red Cell Distribution Width 15.3 % (11.5-17.5); White Blood Count 7.9 K/mm3 (4.8-10.8)
[2019-06-26 10:52] LABS: Alanine Aminotransferase 48 U/L (12-78); Albumin Level 3.4 gm/dL (3.4-5.0); Albumin/Globulin Ratio 0.9 (1.1-1.8); Alkaline Phosphatase 139 U/L (46-116); Anion Gap 10.9 mEq/L (5-15); Aspartate Amino Transferase 41 U/L (15-37); Bilirubin,Total 0.5 mg/dL (0.2-1.0); Blood Urea Nitrogen 9 mg/dL (7-18); Calcium 8.8 mg/dL (8.5-10.1); Carbon Dioxide 34 mmol/L (21.0-32.0); Chloride 99 mmol/L (98-107); Creatinine,Serum 0.89 mg/dL (0.55-1.02); Estimated Glomerular Filt Rate 68 ml/min (>60); GFR (African American) 82 ML/MIN (>60); Globulin 3.6 gm/dl (1.3-3.2); Glucose 191 mg/dL (74-106); Sodium 141 mmol/L (136-145)
[2019-06-26 10:56] LABS: Potassium 2.9 mmoL/L (3.5-5.1)
== END ==
PROVIDERS: PCP Emergency Medicine; Visit Provider Orthopaedic Surgery
DX: M79.645 Pain in left finger(s) (principal)
CPT/HCPCS: 36415; 73130; 80053; 85025

== ENCOUNTER → 2019-06-26 09:30 | Outpatient (CLI) | payer BC, SELFPAY | PROVIDERS: Visit Provider Orthopaedic Surgery | DX: M79.645 Pain in left finger(s) (principal) | CPT/HCPCS: 36415; 80053; 85025 ==

== ENCOUNTER → 2019-06-28 09:36 | Outpatient (CLI) | payer BC, SELFPAY ==
[2019-06-28 11:13] LABS: Anion Gap 12.2 mEq/L (5-15); Blood Urea Nitrogen 14 mg/dL (7-18); Calcium 9.2 mg/dL (8.5-10.1); Carbon Dioxide 33 mmol/L (21.0-32.0); Chloride 100 mmol/L (98-107); Creatinine,Serum 0.91 mg/dL (0.55-1.02); Estimated Glomerular Filt Rate 66 ml/min (>60); GFR (African American) 80 ML/MIN (>60); Glucose 173 mg/dL (74-106); Potassium 3.2 mmoL/L (3.5-5.1); Sodium 142 mmol/L (136-145)
== END ==
PROVIDERS: Visit Provider Physician Assistant
DX: E87.6 Hypokalemia (principal)
CPT/HCPCS: 36415; 80048

== ENCOUNTER → 2019-07-04 09:52 | Outpatient (CLI) | payer BC, SELFPAY ==
[2019-07-04 11:57] LABS: Hemoglobin A1C 6.9 % (0.0-7.0)
== END ==
PROVIDERS: Visit Provider Nurse Practitioner Family
DX: E11.9 Type 2 diabetes mellitus without complications (principal)
CPT/HCPCS: 36415; 83036

== ENCOUNTER → 2019-08-08 08:33 | Outpatient (CLI) | payer BC, SELFPAY ==
[2019-08-08 11:15] LABS: Blood Urea Nitrogen 10 mg/dL (7-18); Calcium 9.1 mg/dL (8.5-10.1); Carbon Dioxide 27 mmol/L (21.0-32.0); Chloride 100 mmol/L (98-107); Creatinine,Serum 1.14 mg/dL (0.55-1.02); Estimated Glomerular Filt Rate 51 ml/min (>60); GFR (African American) 62 ML/MIN (>60); Glucose 199 mg/dL (74-106); Sodium 141 mmol/L (136-145)
== END ==
PROVIDERS: Visit Provider Internal Medicine Endocrinology, Diabetes & Metabolism
DX: E11.65 Type 2 diabetes mellitus with hyperglycemia (principal)
CPT/HCPCS: 36415; 80048; 80053

== ENCOUNTER 2019-08-13 16:42 | Outpatient (CLI) | payer BC, SELFPAY ==
[2019-08-13 17:22] VITALS: BMI 29.9
[2019-08-13 17:24] VITALS: PULSE 78; RESP 18; O2SAT 96
== END 2019-08-13 17:29 | disposition home or self-care (01) ==
PROVIDERS: PCP Emergency Medicine; Visit Provider Nurse Practitioner
DX: M54.5 Low back pain (principal)
CPT/HCPCS: 96372

== ENCOUNTER → 2019-09-24 10:02 | Outpatient (CLI) | payer BC, SELFPAY ==
[2019-09-24 10:12] LABS: Adenovirus F 40/41, stool Not Detected (NotDetected); Astrovirus Not Detected (NotDetected); Campylobacter Not Detected (NotDetected); Clostridium Difficile A/B, PCR Not Detected (NotDetected); Cryptosporidium Not Detected (NotDetected); Cyclospora Cayetanesis Not Detected (NotDetected); Entamoeba histolytica Not Detected (NotDetected); Enteroaggregative E coli Not Detected (NotDetected); Enteropathogenic E coli Not Detected (NotDetected); Enterotoxigenic E coli Not Detected (NotDetected); Giardia lamblia Not Detected (NotDetected); Norovirus Not Detected (NotDetected); Plesimonas Shigalloides, PCR Not Detected (NotDetected); Rotavirus A Not Detected (NotDetected); Salmonella, PCR Not Detected (NotDetected); Sapovirus Not Detected (NotDetected); Shiga-like toxin E coli Not Detected (NotDetected); Shigella Enterovasive E coli Not Detected (NotDetected); Vibrio Cholerae Not Detected (NotDetected); Vibrio, PCR Not Detected (NotDetected); Yersinia Entercolitica, PCR Not Detected (NotDetected)
== END ==
PROVIDERS: PCP Emergency Medicine; Visit Provider Nurse Practitioner Family
DX: R19.7 Diarrhea, unspecified (principal)
CPT/HCPCS: 87507

== ENCOUNTER → 2019-11-01 13:23 | Outpatient (CLI) | payer OTHER, SELFPAY ==
--- NOTE | 2019-11-01 13:23 | CT_ITS ---
PROCEDURE: CT PELVIS WO CON CLINICAL INDICATION: spigelian hernia Lifting injury with left-sided lower quadrant pain, left abdominal and pelvic pain, evaluate for hernia COMPARISON: No exams were available for comparison TECHNIQUE: Axial images obtained with sagittal and coronal reformats. All CT scans at the facility use one or more dose reduction, viz: automated exposure control, ma/kV adjustment per patient size (including targeted exams where dose is matched to indication, i.e. head), or iterative reconstruction technique. FINDINGS: There is a neurostimulator device present with the power pack in the right gluteal region. The tip of the electrode is in the presacral region on the left. No acute fracture or dislocation is evident. There is a small sclerotic focus of the medial aspect of the left ilium and which may be due to small bone island. There is no evidence of abdominal wall hernia. Specifically, there is no evidence of the spigelian hernia in the left lower quadrant. Incidental note is made of fatty liver and colonic diverticula of the sigmoid colon. IMPRESSION: 1. No evidence of abdominal wall hernia. 2. No fracture or dislocation. 3. Fatty liver Dictated by: Lai Benz MD 11/02/2019 06:38 Electronically signed by Lai Benz MD in [place] 11/02/2019 06:38
== END ==
PROVIDERS: PCP Emergency Medicine; Visit Provider Emergency Medicine
DX: K43.9 Ventral hernia without obstruction or gangrene (principal); Z02.6 Encounter for examination for insurance purposes
CPT/HCPCS: 72192

== ENCOUNTER → 2019-11-13 08:33 | Outpatient (CLI) | payer OTHER, SELFPAY ==
--- NOTE | 2019-11-13 08:33 | US_ITS ---
PROCEDURE: US TRANSVAGINAL CLINICAL INDICATION: abd pain Lower pelvic pain COMPARISON: CT PELVIS WO CON from 11/01/2019 FINDINGS: There has been a prior hysterectomy. No pelvic mass apparent what appears to represent the right ovary has an unremarkable appearance at 1.4 x 1 cm. Left ovary not identified. No cul-de-sac fluid IMPRESSION: Status post hysterectomy. Unremarkable appearing right ovary. No pelvic mass or abnormal fluid collection Dictated by: Lai Benz MD 11/13/2019 09:28 Electronically signed by Lai Benz MD in [place] 11/13/2019 09:28
== END ==
PROVIDERS: PCP Emergency Medicine; Visit Provider Physician Assistant
DX: R10.9 Unspecified abdominal pain (principal)
CPT/HCPCS: 76830

== ENCOUNTER → 2019-12-05 08:25 | Outpatient (CLI) | payer OTHER, BC, SELFPAY ==
--- NOTE | 2019-12-05 08:29 | XR_ITS ---
PROCEDURE: XR LUMBAR SPINE MIN 4V CLINICAL INDICATION: back pain COMPARISON: LS5 LUMBAR SPINE 5 VIEWS from 10/15/2014 FINDINGS: According to report there are 11 typical ribs. There are rudimentary ribs involving the T12 vertebra. 5 lumbar vertebrae appear present. There is no acute fracture or dislocation. There is slight decreased disc space heights compatible with minimal degenerative disc disease L3-4 through L5-S1 similar to previous exam. Mild hypertrophic facet disease with sclerosis is seen bilaterally at L5-S1. New spinal stimulator apparatus is noted with electrode projecting over the left sacrum. IMPRESSION: Mild degenerative findings as described. Dictated by: Chemo Ramirez 12/05/2019 09:09 Electronically signed by Chemo Ramirez in [place] 12/05/2019 09:09
== END ==
PROVIDERS: PCP Emergency Medicine; Visit Provider Emergency Medicine
DX: M54.9 Dorsalgia, unspecified (principal); M54.5 Low back pain
CPT/HCPCS: 72110

== ENCOUNTER → 2019-12-14 15:57 | Outpatient (CLI) | payer OTHER, SELFPAY ==
[2019-12-14 19:20] LABS: Chloride 92 mmol/L (98-107); Sodium 137 mmol/L (136-145)
[2019-12-14 19:23] LABS: Blood Urea Nitrogen 13 mg/dl (7-17); Estimated Glomerular Filt Rate 67 ml/min (>60); GFR (African American) 81 ML/MIN (>60)
[2019-12-14 19:24] LABS: Calcium 9.3 mg/dl (8.4-10.2); Carbon Dioxide 32 mmol/L (22.0-30.0); Glucose 246 mg/dl (74-100)
== END ==
PROVIDERS: Visit Provider Emergency Medicine
DX: E87.6 Hypokalemia (principal)
CPT/HCPCS: 36415; 80048

== ENCOUNTER → 2019-12-25 09:43 | Outpatient (CLI) | payer BC, SELFPAY ==
[2019-12-25 11:00] LABS: Anion Gap 12.1 mEq/L (5-15); Blood Urea Nitrogen 12 mg/dl (7-17); Calcium 9.8 mg/dl (8.4-10.2); Carbon Dioxide 33 mmol/L (22.0-30.0); Chloride 94 mmol/L (98-107); Estimated Glomerular Filt Rate 77 ml/min (>60); GFR (African American) 93 ML/MIN (>60); Glucose 204 mg/dl (74-100); Potassium 3.1 mmoL/L (3.5-5.1); Sodium 136 mmol/L (136-145)
== END ==
PROVIDERS: Visit Provider Physician Assistant
DX: E87.6 Hypokalemia (principal)
CPT/HCPCS: 36415; 80048

== ENCOUNTER → 2020-01-09 13:16 | Outpatient (CLI) | payer BC, SELFPAY ==
[2020-01-09 14:05] LABS: Anion Gap 14.4 mEq/L (5-15); Blood Urea Nitrogen 11 mg/dl (7-17); Calcium 9.8 mg/dl (8.4-10.2); Carbon Dioxide 27 mmol/L (22.0-30.0); Chloride 97 mmol/L (98-107); Estimated Glomerular Filt Rate 67 ml/min (>60); GFR (African American) 81 ML/MIN (>60); Glucose 205 mg/dl (74-100); Potassium 3.4 mmoL/L (3.5-5.1); Sodium 135 mmol/L (136-145)
== END ==
PROVIDERS: Visit Provider Emergency Medicine
DX: E87.6 Hypokalemia (principal)
CPT/HCPCS: 80048

== ENCOUNTER 2020-02-24 11:04 | Emergency (ER) | payer BC, SELFPAY ==
[2020-02-24] VITALS (8 sets, daily range): BP systolic 97–211; BP diastolic 50–117; PULSE 67–80; RESP 16–18; TEMP 37; O2SAT 93–99; BMI 34.9
[2020-02-24 12:15] LABS: Appearance,Urine CLEAR (Clear); Bilirubin,Urine Negative (Negative); Blood, Urine Negative (Negative); Color,Urine YELLOW (Yellow); Glucose,Urine (UA) Negative (Negative); Ketones,Urine Negative (Negative); Leukocyte Esterase,Urine Negative (Negative); Microscopic, Urine URINE MICROSCOPIC (MICROSCOPIC); Nitrate,Urine Negative (Negative); Protein,Urine Negative (Negative); Urobilinogen,Urine 0.2 EU/dl (0.2)
--- NOTE | 2020-02-24 12:55 | HMH.EDABDPAI ---
ED Disposition Clinical Impression: Gastroenteritis, Acute abdominal pain Disposition: Home, Self-Care Condition on Discharge: Good Instructions: DI for Nausea -- Adult, DI for Nausea -- Child, DI for Diarrhea and Traveler's Diarrhea -- Adult, DI for Diarrhea and Traveler's Diarrhea -- Child, DI for Acute Abdomen Additional Instructions: Please follow-up with [facility]. Prescriptions: Losartan Potassium 50 mg PO DAILY 30 Days #30 tab Transmission Status: Pending to [facility] Acetaminophen with Codeine [Tylenol with Codeine #3 tablet] 1 each PO QID 3 Days #12 tablet Acetaminophen with Codeine [Tylenol with Codeine #3 tablet] 1 each PO QID 3 Days #12 tab Prescription Printed Tizanidine HCl [Zanaflex 4mg tablet] 4 mg PO TID 10 Days #30 tab Transmission Status: Pending to [facility] Ondansetron [Zofran 4mg ODT] 4 mg PO TID PRN 4 Days #15 tab.rapdis PRN Reason: Nausea Transmission Status: Pending to [facility] Referrals: Provider,Referral, [Primary Care Provider] - - Critical Care Critical Care Time: No Attestation: On 02/24/20, the high probability of a clinically significant, sudden or life threatening deterioration of the following system(s) required my full and direct attention, intervention and personal management. The time I documented below is in addition to time spent performing reported procedures but includes the following listed in this critical care notation. Medical Decision Making - Medical Records Medical records reviewed: Yes: I reviewed the patient's medical records. - Efren Inquiry Pt receiving controlled substance: No Vital Signs: 02/24/20 11:05 02/24/20 11:29 02/24/20 11:32 Temperature 98.6 F Temperature Source Oral Pulse Rate [Left Radial] 79 79 80 Respiratory Rate 18 Blood Pressure [Left Arm] 162/114 H Blood Pressure [Right Arm] 184/117 H 211/106 H Blood Pressure Mean [Left Arm] 130 Blood Pressure Mean [Right Arm] 139 141 Blood Pressure Source [Left Arm] Automatic Cuff Blood Pressure Position [Left Arm] Sitting Blood Pressure Position [Right Arm] Supine 02 Sat by Pulse Oximetry 97 95 93 L Oxygen Delivery Method Room Air Room Air Room Air 02/24/20 12:05 Temperature Temperature Source Pulse Rate [Left Radial] 79 Respiratory Rate 16 Blood Pressure [Left Arm] 107/50 L Blood Pressure [Right Arm] Blood Pressure Mean [Left Arm] 69 Blood Pressure Mean [Right Arm] Blood Pressure Source [Left Arm] Automatic Cuff Blood Pressure Position [Left Arm] Blood Pressure Position [Right Arm] 02 Sat by Pulse Oximetry 97 Oxygen Delivery Method Room Air - Lab Data Lab results reviewed: Yes: I reviewed the patient's lab results. Lab Results 02/24/20 12:05: Urine Color Yellow, Urine Appearance Clear, Urine pH 6.0, Ur Specific [place] 1.010, Urine Protein Negative, Urine Glucose (UA) Negative, Urine Ketones Negative, Urine Blood Negative, Urine Nitrate Negative, Urine Bilirubin Negative, Urine Urobilinogen 0.2, Ur Leukocyte Esterase Negative, Urine RBC None, Urine WBC None, Ur Squamous Epith Cells 5-10, Urine Bacteria None Orders (Tests/Meds): ED MEDICATIONS Generic Name Dose Route Start Last Admin Trade Name Freq PRN Reason Stop Dose Admin Sodium Chloride 1,000 mls @ 999 mls/hr 02/24/20 12:45 02/24/20 12:37 Sod Chlor 0.9% 1000ml Bag IV 02/24/20 13:45 999 mls/hr .Q1H1M ROCKY Administration Discontinued Medications Generic Name Dose Route Start Last Admin Trade Name Freq PRN Reason Stop Dose Admin Diazepam 10 mg 02/24/20 11:21 02/24/20 11:25 Valium 10mg/2ml Syringe IV 02/24/20 11:22 10 mg ONCE ONE Administration Dicyclomine HCl 10 mg 02/24/20 12:24 02/24/20 12:38 Bentyl 10mg Capsule PO 02/24/20 12:25 10 mg ONCE ONE Administration Enalaprilat 1.25 mg 02/24/20 11:30 02/24/20 11:33 Vasotec 2.5mg/2ml Vial IV 02/24/20 11:31 1.25 mg ONCE ONE A
--- NOTE | 2020-02-24 13:43 | PC.NURSE ---
Pt sleeping at this time.
--- NOTE | 2020-02-24 13:57 | CT_ITS ---
PROCEDURE: CT ABDOMEN PELVIS WO CON CLINICAL INDICATION: vomitting, abd pain COMPARISON: ABDPELW CT abdomen pelvis w con from 11/24/2018 CT PELVIS WO CON from 11/01/2019 TECHNIQUE: Axial images obtained with sagittal and coronal reformats. All CT scans at the facility use one or more dose reduction, viz: automated exposure control, ma/kV adjustment per patient size (including targeted exams where dose is matched to indication, i.e. head), or iterative reconstruction technique. FINDINGS: Lower thorax: The lower lung aguilar are clear of infiltrate, there may be minimal atelectasis at the left costophrenic angle ABDOMEN: Liver: Prominent diffuse hepatic steatosis is noted, there are no focal lesions. There is borderline hepatomegaly. Gallbladder: Post cholecystectomy Pancreas: No masses or peripancreatic fluid collections. Spleen: unremarkable Adrenals: unremarkable Kidneys/ureters: unremarkable except for tiny cortical cyst lower pole left kidney. ABDOMEN & PELVIS: Stomach bowel: Nondistended. No obvious mass or thickening. The small bowel appears normal. There is moderate scattered stool and gas in the ascending and transverse colon. The descending and sigmoid colon are decompressed. Peritoneum: No abnormal fluid collections. No obvious inflammatory changes. No free air. Lymph nodes: No enlarged lymph nodes apparent. Vasculature: No evidence of abdominal aortic aneurysm. No retroperitoneal hemorrhage evident. Bones: No acute fracture PELVIS: Reproductive: Post hysterectomy Bladder: The urinary bladder is moderately distended with urine appears normal, there is no free fluid in the pelvis. Appendix: Unremarkable. No distention or periappendiceal phlegmonous change. IMPRESSION: Prominent diffuse hepatic steatosis there is no acute abdominal or pelvic pathology identified Dictated by: Dr. David Gibson MD 02/24/2020 16:[address] David Gibson MD in [place] 02/24/2020 16:21
--- NOTE | 2020-02-24 13:57 | PC.NURSE ---
notified ER MD pt continues to report nausea, no vomitting, pt states I just feel sick . ER MD gave verbal order CT abd/pelvis no contrast
--- NOTE | 2020-02-24 14:03 | PC.NURSE ---
rad notified of CT order
--- NOTE | 2020-02-24 14:19 | PC.NURSE ---
pt to CT
--- NOTE | 2020-02-24 16:05 | CT_ITS ---
PROCEDURE: CT ABDOMEN PELVIS W CON CLINICAL INDICATION: Abdominal pain, nausea and vomiting COMPARISON: CT PELVIS WO CON from 11/01/2019 CT ABDOMEN PELVIS WO CON from 02/24/2020 TECHNIQUE: IV Contrast: 75ML OPTIRAY 350 Oral Contrast none given Axial images obtained with sagittal and coronal reformats. All CT scans at the facility use one or more dose reduction, viz: automated exposure control, ma/kV adjustment per patient size (including targeted exams where dose is matched to indication, i.e. head), or iterative reconstruction technique. FINDINGS: Lower thorax: The lower lung aguilar are clear and there is no pleural fluid. ABDOMEN: Liver: There is borderline hepatomegaly with diffuse hypodensity consistent with prominent diffuse hepatic steatosis. There are no focal lesions. Gallbladder: Post cholecystectomy Pancreas: No masses or peripancreatic fluid collections. Spleen: unremarkable Adrenals: unremarkable Kidneys/ureters: The kidneys are normal size and show symmetrical function both appearing normal. ABDOMEN & PELVIS: Stomach bowel: The stomach is moderately distended with ingested food particles and fluid. The small bowel appears normal. There is a moderate amount stool in the cecum ascending and transverse colon, the descending and sigmoid colon are decompressed. Peritoneum: No abnormal fluid collections. No obvious inflammatory changes. No free air. Lymph nodes: No enlarged lymph nodes apparent. Vasculature: No evidence of abdominal aortic aneurysm. No retroperitoneal hemorrhage evident. Bones: No acute fracture there is a neurostimulator power pack in the soft tissues right upper buttock within neurostimulator electrode leading to the presacral space left of midline. PELVIS: Reproductive: Post hysterectomy Bladder: The urinary bladder is moderately distended with urine and appears normal, there is no free fluid in the pelvis. Appendix: Unremarkable. No distention or periappendiceal phlegmonous change. IMPRESSION: Prominent diffuse hepatic steatosis with borderline hepatomegaly, moderately large amount right-sided stool, no acute abdominal or pelvic pathology identified Dictated by: Dr. David Gibson MD 02/24/2020 17:[address] David Gibson MD in [place] 02/24/2020 17:00
[2020-02-24 16:15] LABS: Monoscreen (Rapid) Negative (Negative)
[2020-02-24 16:18] LABS: Basophils # 0.1 K/mm3 (0-0.2); Basophils % 1.1 % (0.1-2.0); Eosinophils # 0.2 K/mm3 (0.0-0.4); Eosinophils % 2.8 % (0.1-12.0); Hematocrit 41.1 % (37.0-47.0); Hemoglobin 14.1 g/dL (12.2-16.2); Lymphocytes # 2.4 K/mm3 (0.7-4.5); Lymphocytes % 29.7 % (10-50); Mean Corpuscular HGB Conc 34.3 g/dL (31.8-35.4); Mean Corpuscular Hemoglobin 27.2 pg (27.0-31.2); Mean Corpuscular Volume 79.3 fl (81-99); Mean Platelet Volume 9.3 fl (7.4-10.4); Monocytes # 0.4 K/mm3 (0.1-1.0); Monocytes % 5.1 % (1.7-9.3); Neutrophils # 4.9 K/mm3 (1.8-7.8); Neutrophils % 61.4 % (37.0-80.0); Platelet Count 214 K/mm3 (142-424); Red Blood Count 5.18 M/mm3 (4.20-5.40); Red Cell Distribution Width 15.4 % (11.5-17.5)
[2020-02-24 16:20] LABS: Alanine Aminotransferase 62 U/L (12-78); Albumin/Globulin Ratio 1.4 (1.1-1.8); Alkaline Phosphatase 138 U/L (38-126); Anion Gap 13.6 mEq/L (5-15); Aspartate Amino Transferase 95 U/L (14-36); Bilirubin,Total 0.8 mg/dl (0.2-1.3); Blood Urea Nitrogen 10 mg/dl (7-17); Calcium 10.2 mg/dl (8.4-10.2); Carbon Dioxide 32 mmol/L (22.0-30.0); Chloride 94 mmol/L (98-107); Creatinine Clearance Estimated 116 mL/min (50-200); Estimated Glomerular Filt Rate 67 ml/min (>60); GFR (African American) 81 ML/MIN (>60); Globulin 3.6 g/dL (1.3-3.2); Glucose 179 mg/dl (74-100); Potassium 3.6 mmoL/L (3.5-5.1); Sodium 136 mmol/L (136-145); Total Protein,Serum 8.6 g/dl (6.3-8.2)
== END 2020-02-24 18:30 | disposition home or self-care (01) ==
PROVIDERS: Emergency Provider Family Medicine
DX: K52.9 Noninfective gastroenteritis and colitis, unspecified (principal); K21.9 Gastro-esophageal reflux disease without esophagitis; E78.5 Hyperlipidemia, unspecified; E03.9 Hypothyroidism, unspecified; G43.709 Chronic migraine without aura, not intractable, without status migrainosus; Z87.891 Personal history of nicotine dependence
CPT/HCPCS: 74176; 74177; 80053; 81001; 85025; 86318; 96365; 96366; 96375; 96376; 99284; J2405; Q9967

== ENCOUNTER → 2020-05-21 08:07 | Outpatient (CLI) | payer OTHER, BC, SELFPAY ==
--- NOTE | 2020-05-21 08:23 | MM_ITS ---
PROCEDURE: MM DIG SCREENING MAMM BI W/CAD Digital Breast Tomosynthesis Included CLINICAL INDICATION: SCREENING There is no personal or family history of breast cancer. COMPARISON: MG DMSB DIG MAMM-SCREEN RIKA W/CAD from 04/02/2017 MG SCBI MM Dig screening mamm BI w/CAD from 04/14/2018 MG MM DIG SCREENING MAMM BI W/CAD from 05/18/2019 TECHNIQUE: Standard CC and MLO images and 3D Tomosynthesis was obtained. R2 CAD reviewed. FINDINGS: The breasts are composed primarily of fat with scattered fibroglandular densities throughout each breast. There are stable benign-appearing nodular densities near the axillary tail right breast likely intramammary nodes. There is a benign-appearing calcification left breast. There is no suspicious lesion and no suspicious microcalcifications. IMPRESSION: Fibrofatty parenchyma with no suspicious lesions seen BI-RAD Category: 2 Benign Finding(s) FOLLOW-UP: 1YR 1 Year Follow-up (A letter has been sent to the patient regarding results of the study.) Dictated by: Dr. David Gibson MD 05/23/2020 19:08 Dr. David Gibson MD in [place] 05/23/2020 19:08
== END ==
PROVIDERS: PCP Emergency Medicine; Visit Provider Nurse Practitioner Obstetrics & Gynecology
DX: Z12.31 Encounter for screening mammogram for malignant neoplasm of breast (principal)
CPT/HCPCS: 77063; 77067

== ENCOUNTER → 2020-06-06 16:21 | Outpatient (CLI) | payer OTHER, SELFPAY | PROVIDERS: PCP Emergency Medicine; Visit Provider Internal Medicine Pulmonary Disease | DX: R10.13 Epigastric pain (principal); K21.9 Gastro-esophageal reflux disease without esophagitis ==

== ENCOUNTER → 2020-06-07 11:41 | Outpatient (CLI) | payer OTHER, SELFPAY ==
[2020-06-11 09:59] LABS: H. pylori Stool Ag, EIA Negative (Negative)
== END ==
LOC: LAB.DROPOF 11:42
PROVIDERS: Visit Provider Internal Medicine Pulmonary Disease
DX: R10.13 Epigastric pain (principal); K21.9 Gastro-esophageal reflux disease without esophagitis
CPT/HCPCS: 87338

== ENCOUNTER → 2020-06-25 13:10 | Outpatient (CLI) | payer OTHER, SELFPAY ==
[2020-06-25 15:45] LABS: Adenovirus F 40/41, stool Not Detected (NotDetected); Astrovirus Not Detected (NotDetected); Campylobacter Not Detected (NotDetected); Clostridium Difficile A/B, PCR Not Detected (NotDetected); Cryptosporidium Not Detected (NotDetected); Cyclospora Cayetanesis Not Detected (NotDetected); Entamoeba histolytica Not Detected (NotDetected); Enteroaggregative E coli Not Detected (NotDetected); Enteropathogenic E coli Not Detected (NotDetected); Enterotoxigenic E coli Not Detected (NotDetected); Giardia lamblia Not Detected (NotDetected); Norovirus Not Detected (NotDetected); Plesimonas Shigalloides, PCR Not Detected (NotDetected); Rotavirus A Not Detected (NotDetected); Salmonella, PCR Not Detected (NotDetected); Shiga-like toxin E coli Not Detected (NotDetected); Shigella Enterovasive E coli Not Detected (NotDetected); Vibrio Cholerae Not Detected (NotDetected); Vibrio, PCR Not Detected (NotDetected); Yersinia Entercolitica, PCR Not Detected (NotDetected)
[2020-06-30 03:40] LABS: Sapovirus Not Detected (NotDetected)
== END ==
PROVIDERS: PCP Emergency Medicine; Visit Provider Surgery
DX: R19.7 Diarrhea, unspecified (principal)
CPT/HCPCS: 87507

== ENCOUNTER → 2020-07-05 17:56 | Outpatient (CLI) | payer OTHER, SELFPAY ==
[2020-07-05 18:50] LABS: Hemoglobin A1C 6.7 % (4.0-6.0)
[2020-07-08 12:56] LABS: Creatinine,Urine Random 242 mg/dL (Not Estab.)
== END ==
LOC: LAB.DROPOF 17:56
PROVIDERS: Visit Provider Nurse Practitioner Family
DX: E11.9 Type 2 diabetes mellitus without complications (principal); Z79.4 Long term (current) use of insulin
CPT/HCPCS: 82043; 82570; 83036

== ENCOUNTER → 2020-07-24 09:27 | Outpatient (CLI) | payer OTHER, SELFPAY | LOC: LAB 09:27 | PROVIDERS: PCP Emergency Medicine; Visit Provider Internal Medicine Pulmonary Disease | DX: J98.8 Other specified respiratory disorders (principal) | CPT/HCPCS: 87070; 87077; 87186; 87205 ==

== ENCOUNTER → 2020-07-25 10:27 | Outpatient (CLI) | payer OTHER, SELFPAY ==
--- NOTE | 2020-07-25 10:29 | XR_ITS ---
PROCEDURE: XR CHEST 2V CLINICAL HISTORY: SOB Shortness of breath and wheezing COMPARISON: CR CXR2V XR chest 2V from 09/11/2018 CR CXR2V XR chest 2V from 10/10/2018 CR Chest from 02/02/2019 CR XR CHEST 2V from 11/14/2019 FINDINGS: The cardiomediastinal silhouette and pulmonary vascularity are within normal limits. The lungs are clear without infiltrates, suspicious nodules, or pleural effusions. No acute bony abnormalities. IMPRESSION: No acute findings. Dictated by: Lai Benz MD 07/25/2020 11:55 Lai Benz MD in [place] 07/25/2020 11:55
[2020-07-25 15:00] LABS: Adenovirus,PCR Not Detected (NotDetected); Bordetella Pertussis Not Detected (NotDetected); Chlamydophila Pneumoniae, PCR Not Detected (NotDetected); Coronavirus 19, PCR Not Detected (NotDetected); Coronavirus 229E Not Detected (NotDetected); Coronavirus NL63 Not Detected (NotDetected); Coronavirus OC43 Not Detected (NotDetected); Coronovirus HKU1,PCR Not Detected (NotDetected); Human Metapneumovirus Not Detected (NotDetected); Influenza A, PCR Not Detected (NotDetected); Influenza AH1, 2009 Not Detected (NotDetected); Influenza AH1, PCR Not Detected (NotDetected); Influenza AH3,PCR Not Detected (NotDetected); Influenza B, PCR Not Detected (NotDetected); Mycoplasma Pneumoniae, PCR Not Detected (NotDetected); Parainfluenza 1, PCR Not Detected (NotDetected); Parainfluenza 2, PCR Not Detected (NotDetected); Parainfluenza 3, PCR Not Detected (NotDetected); Parainfluenza 4, PCR Not Detected (NotDetected); Respiratory Syncytial Virus Not Detected (NotDetected); Rhinovirus/Enterovirus Not Detected (NotDetected)
== END ==
LOC: RAD 10:28 → COVID.OUT 14:16
PROVIDERS: PCP Emergency Medicine; Visit Provider Internal Medicine Pulmonary Disease
DX: Z03.818 Encounter for observation for suspected exposure to other biological agents ruled out (principal); J45.909 Unspecified asthma, uncomplicated
CPT/HCPCS: 71046; 87581; 87633; 87798

== ENCOUNTER 2020-08-07 20:53 | Outpatient (CLI) | payer OTHER, SELFPAY ==
[2020-08-07 20:57] VITALS: BMI 34.9
== END 2020-08-07 21:15 | disposition home or self-care (01) ==
LOC: UTC.OUT 20:54
PROVIDERS: PCP Nurse Practitioner; Visit Provider Nurse Practitioner
DX: J40 Bronchitis, not specified as acute or chronic (principal)

== ENCOUNTER → 2020-08-19 13:09 | Outpatient (CLI) | payer OTHER, SELFPAY ==
[2020-08-19 13:14] LABS: Microscopic, Urine URINE MICROSCOPIC (MICROSCOPIC)
[2020-08-19 14:15] LABS: Appearance,Urine CLEAR (Clear); Bilirubin,Urine Negative (Negative); Blood, Urine Negative (Negative); Color,Urine YELLOW (Yellow); Glucose,Urine (UA) Negative (Negative); Ketones,Urine Negative (Negative); Leukocyte Esterase,Urine TRACE (Negative); Nitrate,Urine Negative (Negative); PH,Urine 5.5 (5.0-8.5); Protein,Urine 1+ (Negative); Specific Gravity, Urine 1.025 (1.005-1.030); Urobilinogen,Urine 0.2 EU/dl (0.2)
[2020-08-19 14:19] LABS: RBC,Urine Occasional #/hpf (0-3)
[2020-08-19 14:36] LABS: Basophils % 0.7 % (0.1-2.0); Eosinophils # 0.1 K/mm3 (0.0-0.4); Eosinophils % 1.1 % (0.1-12.0); Hemoglobin 15.4 g/dL (12.2-16.2); Lymphocytes # 1.8 K/mm3 (0.7-4.5); Lymphocytes % 30.6 % (10-50); Mean Corpuscular HGB Conc 34.3 g/dL (31.8-35.4); Mean Corpuscular Hemoglobin 26.7 pg (27.0-31.2); Mean Corpuscular Volume 77.9 fl (81-99); Mean Platelet Volume 8.5 fl (7.4-10.4); Monocytes # 0.3 K/mm3 (0.1-1.0); Monocytes % 5.2 % (1.7-9.3); Neutrophils # 3.6 K/mm3 (1.8-7.8); Neutrophils % 62.4 % (37.0-80.0); Platelet Count 175 K/mm3 (142-424); Red Blood Count 5.77 M/mm3 (4.20-5.40); Red Cell Distribution Width 15.5 % (11.5-17.5); White Blood Count 5.7 K/mm3 (4.8-10.8)
[2020-08-19 14:53] LABS: Creatinine,Urine Random 242 mg/dL (Not Estab.)
[2020-08-19 15:09] LABS: Anion Gap 16.7 mEq/L (5-15); Blood Urea Nitrogen 10 mg/dl (7-17); Carbon Dioxide 33 mmol/L (22.0-30.0); Chloride 90 mmol/L (98-107); Estimated Glomerular Filt Rate 67 ml/min (>60); GFR (African American) 81 ML/MIN (>60); Glucose 300 mg/dl (74-100); Phosphorous 3.4 mg/dl (2.5-4.5); Potassium 3.7 mmoL/L (3.5-5.1); Sodium 136 mmol/L (136-145)
[2020-08-19 15:24] LABS: 25-OH Vitamin D, Total 43.2 ng/mL (30-100)
[2020-08-19 15:25] LABS: Intact Parathyroid Hormone 77.1 pg/mL (7.5-53.5)
== END ==
LOC: LAB 13:10
PROVIDERS: Visit Provider Internal Medicine Nephrology
DX: R80.9 Proteinuria, unspecified (principal)
CPT/HCPCS: 36415; 80069; 81001; 82306; 82570; 83970; 84155; 84156; 84166; 85025

== ENCOUNTER → 2020-08-19 13:35 | Outpatient (POV) | payer OTHER, SELFPAY | PROVIDERS: Visit Provider Internal Medicine Nephrology | DX: Z00.00 Encounter for general adult medical examination without abnormal findings (principal) ==

== ENCOUNTER → 2020-08-22 09:35 | Outpatient (CLI) | payer OTHER, SELFPAY ==
--- NOTE | 2020-08-22 09:48 | XR_ITS ---
PROCEDURE: XR CHEST 2V CLINICAL HISTORY: PNM Pneumonia COMPARISON: CR Chest from 02/02/[address] chest wo con from 02/02/2019 CR XR CHEST 2V from 11/14/2019 DX XR CHEST 2V from 07/25/2020 FINDINGS: The cardiomediastinal silhouette and pulmonary vascularity are within normal limits. The lungs are clear without infiltrates, suspicious nodules, or pleural effusions. No acute bony abnormalities. IMPRESSION: No acute findings. Dictated by: Lai Benz MD 08/22/2020 13:56 Lai eBnz MD in [place] 08/22/2020 13:56
[2020-08-24 17:16] LABS: D001-IgE D pteronyssinus <0.10 kU/L (Class 0); D002-IgE D farinae <0.10 kU/L (Class 0); E001-IgE Cat Dander <0.10 kU/L (Class 0); E005-IgE Dog Dander <0.10 kU/L (Class 0); G002-IgE Bermuda Grass <0.10 kU/L (Class 0); G006-IgE Timothy Grass <0.10 kU/L (Class 0); I006-IgE Cockroach, German <0.10 kU/L (Class 0); Immunoglobulin E, Total 38 IU/mL (6-495); M001-IgE Penicillium chrysogen <0.10 kU/L (Class 0); M002-IgE Cladosporium herbarum <0.10 kU/L (Class 0); M003-IgE Aspergillus fumigatus <0.10 kU/L (Class 0); M006-IgE Alternaria alternata <0.10 kU/L (Class 0); T001-IgE Maple/Box Elder <0.10 kU/L (Class 0); T006-IgE Cedar, Mountain <0.10 kU/L (Class 0); T007-IgE Oak, White <0.10 kU/L (Class 0); T008-IgE Elm, American <0.10 kU/L (Class 0); T010-IgE Walnut <0.10 kU/L (Class 0); T011-IgE Maple Leaf Sycamore <0.10 kU/L (Class 0); T014-IgE Cottonwood <0.10 kU/L (Class 0); T015-IgE Ash, White <0.10 kU/L (Class 0); T022-IgE Pecan, Hickory <0.10 kU/L (Class 0); T070-IgE White Mulberry <0.10 kU/L (Class 0); W001-IgE Ragweed, Short <0.10 kU/L (Class 0); W011-IgE Thistle, Russian <0.10 kU/L (Class 0); W014-IgE Pigweed, Common <0.10 kU/L (Class 0); W016-IgE Rough Marshelder <0.10 kU/L (Class 0)
[2020-08-24 20:53] LABS: E072-IgE Mouse Urine <0.10 kU/L (Class 0)
== END ==
PROVIDERS: Visit Provider Internal Medicine Pulmonary Disease
DX: R06.02 Shortness of breath (principal); R06.2 Wheezing; J44.9 Chronic obstructive pulmonary disease, unspecified
CPT/HCPCS: 36415; 71046; 82785; 86003; 87070; 87077; 87186; 87205

== ENCOUNTER → 2020-09-10 08:11 | Outpatient (POV) | payer OTHER, SELFPAY | PROVIDERS: Visit Provider Dermatology | DX: Z00.00 Encounter for general adult medical examination without abnormal findings (principal) ==

== ENCOUNTER 2020-10-01 12:57 | Emergency (ER) | payer OTHER, SELFPAY ==
[2020-10-01 12:58] VITALS: BP 145/92; PULSE 110; RESP 18; TEMP 36.8; O2SAT 97; BMI 35.1
[2020-10-01 13:06] VITALS: BMI 35.1
--- NOTE | 2020-10-01 13:07 | CT_ITS ---
PROCEDURE: CT ABDOMEN PELVIS W CON CLINICAL INDICATION: RLQ abd pain, vomitting COMPARISON: CT CT ABDOMEN PELVIS W CON from 02/24/2020 TECHNIQUE: IV Contrast: 75ML Isovue 370 Oral Contrast None Axial images obtained with sagittal and coronal reformats. All CT scans at the facility use one or more dose reduction, viz: automated exposure control, ma/kV adjustment per patient size (including targeted exams where dose is matched to indication, i.e. head), or iterative reconstruction technique. FINDINGS: LOWER THORAX: No acute finding ABDOMEN & PELVIS: There is diffuse fatty liver with hepatomegaly. There has been a prior cholecystectomy. Mild splenomegaly at 14 cm. There are few scattered small epigastric lymph nodes. Small peripancreatic and portal lymph nodes are also present. These do not appear significantly changed. The pancreas, and adrenal glands have an unremarkable appearance. No renal or ureteral calculi. No hydronephrosis. 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 There is a mild amount of retained colonic feces. No evidence of appendicitis. No intestinal obstruction or free air. No evidence diverticulitis. There has been a prior hysterectomy. No acute bony findings. A neurostimulator device is present with the power pack in the right gluteal region and the electrode entering the sacrum at the S3-S4 level with the tip of the electrode in the presacral area on the left. No acute bony findings. IMPRESSION: 1. No acute finding. 2. Fatty liver with hepatosplenomegaly Dictated by: Lai Benz MD 10/01/2020 14:35 Lai Benz MD in [place] 10/01/2020 14:35
[2020-10-01 13:33] LABS: Chloride 87 mmol/L (98-107); Potassium 3.1 mmoL/L (3.5-5.1); Sodium 136 mmol/L (136-145)
[2020-10-01 13:36] LABS: Alanine Aminotransferase 73 U/L (12-78); Albumin Level 5.2 g/dl (3.5-5.0); Albumin/Globulin Ratio 1.2 (1.1-1.8); Alkaline Phosphatase 130 U/L (38-126); Amylase 57 U/L (30-110); Anion Gap 17.1 mEq/L (5-15); Aspartate Amino Transferase 70 U/L (14-36); Bilirubin,Total 0.8 mg/dl (0.2-1.3); Blood Urea Nitrogen 12 mg/dl (7-17); Calcium 10.5 mg/dl (8.4-10.2); Carbon Dioxide 35 mmol/L (22.0-30.0); Creatinine Clearance Estimated 115 mL/min (50-200); Estimated Glomerular Filt Rate 67 ml/min (>60); GFR (African American) 81 ML/MIN (>60); Globulin 4.5 g/dL (1.3-3.2); Glucose 269 mg/dl (74-100); Lipase 200 U/L (23-300); Total Protein,Serum 9.7 g/dl (6.3-8.2)
[2020-10-01 13:40] LABS: Microscopic, Urine URINE MICROSCOPIC (MICROSCOPIC)
[2020-10-01 13:46] LABS: Appearance,Urine CLEAR (Clear); Bilirubin,Urine Negative (Negative); Blood, Urine Negative (Negative); Color,Urine YELLOW (Yellow); Glucose,Urine (UA) Negative (Negative); Ketones,Urine Negative (Negative); Leukocyte Esterase,Urine TRACE (Negative); Nitrate,Urine Negative (Negative); PH,Urine 5.5 (5.0-8.5); Protein,Urine Negative (Negative); Urobilinogen,Urine 0.2 EU/dl (0.2)
[2020-10-01 13:52] LABS: Basophils # 0.1 K/mm3 (0-0.2); Basophils % 0.9 % (0.1-2.0); Eosinophils # 0.1 K/mm3 (0.0-0.4); Eosinophils % 1.3 % (0.1-12.0); Hematocrit 44.7 % (37.0-47.0); Hemoglobin 15.2 g/dL (12.2-16.2); Lymphocytes # 3.5 K/mm3 (0.7-4.5); Lymphocytes % 35.7 % (10-50); Mean Corpuscular HGB Conc 34.1 g/dL (31.8-35.4); Mean Corpuscular Hemoglobin 26.9 pg (27.0-31.2); Mean Corpuscular Volume 79.1 fl (81-99); Mean Platelet Volume 8.3 fl (7.4-10.4); Monocytes # 0.4 K/mm3 (0.1-1.0); Neutrophils # 5.6 K/mm3 (1.8-7.8); Neutrophils % 58.1 % (37.0-80.0); Platelet Count 260 K/mm3 (142-424); Red Blood Count 5.65 M/mm3 (4.20-5.40); Red Cell Distribution Width 16.7 % (11.5-17.5); White Blood Count 9.7 K/mm3 (4.8-10.8)
[2020-10-01 14:13] LABS: RBC,Urine Occasional #/hpf (0-3)
--- NOTE | 2020-10-01 14:49 | HMH.EDGENADL ---
ED Disposition Clinical Impression: RLQ abdominal pain Vomiting Qualifiers: Vomiting type: unspecified Vomiting Intractability: intractable Nausea presence: with nausea Qualified Code(s): R11.2 - Nausea with vomiting, unspecified Disposition: Home, Self-Care Condition on Discharge: Good Instructions: DI for Acute Abdominal Pain Additional Instructions: Continue Tylenol for pain. Zofran or Phenergan for nausea. Additional instructions for ABDOMINAL PAIN: See your physician as soon as possible for further evaluation. Return immediately if worsening abdominal pain, vomiting, shortness of breath, fever, vomiting of blood or abdominal distention. Prescriptions: Promethazine HCl [Phenergan 25mg tab] 25 mg PO Q6HP PRN #10 tab PRN Reason: Nausea And Vomiting Transmission Status: Received by [facility] Referrals: Anshul Stephen MD [Primary Care Provider] - - Critical Care Critical Care Time: No Attestation: On 10/01/20, the high probability of a clinically significant, sudden or life threatening deterioration of the following system(s) required my full and direct attention, intervention and personal management. The time I documented below is in addition to time spent performing reported procedures but includes the following listed in this critical care notation. Medical Decision Making - Efren Inquiry Pt receiving controlled substance: No Vital Signs: 10/01/20 12:58 Temperature 98.3 F Temperature Source Oral Pulse Rate [Right Radial] 110 H Respiratory Rate 18 Blood Pressure [Right Arm] 145/92 H Blood Pressure Mean [Right Arm] 109 Blood Pressure Source [Right Arm] Automatic Cuff Blood Pressure Position [Right Arm] Sitting 02 Sat by Pulse Oximetry 97 Oxygen Delivery Method Room Air - Lab Data Lab Results 10/01/20 13:03: Urine Color Yellow, Urine Appearance Clear, Urine pH 5.5, Ur Specific [place] 1.020, Urine Protein Negative, Urine Glucose (UA) Negative, Urine Ketones Negative, Urine Blood Negative, Urine Nitrate Negative, Urine Bilirubin Negative, Urine Urobilinogen 0.2, Ur Leukocyte Esterase Trace, Urine RBC Occasional, Urine WBC 3-5, Ur Squamous Epith Cells 5-10 10/01/20 13:10: WBC 9.7, RBC 5.65 H, Hgb 15.2, Hct 44.7, MCV 79.1 L, MCH 26.9 L, MCHC 34.1, RDW 16.7, Plt Count 260, MPV 8.3, Neut % (Auto) 58.1, Lymph % (Auto) 35.7, Bennett % (Auto) 4.0, Eos % (Auto) 1.3, Baso % (Auto) 0.9, Neut # (Auto) 5.6, Lymph # (Auto) 3.5, Bennett # (Auto) 0.4, Eos # (Auto) 0.1, Baso # (Auto) 0.1 10/01/20 13:10: Sodium 136, Potassium 3.1 L, Chloride 87 L, Carbon Dioxide 35 H, Anion Gap 17.1 H, BUN 12, Creatinine 0.90, Estimated Creat Clear 115, Estimated GFR 67, Est GFR ( Amer) 81, Glucose 269 H, Calcium 10.5 H, Total Bilirubin 0.8, AST 70 H, ALT 73, Alkaline Phosphatase 130 H, Total Protein 9.7 H D, Albumin 5.2 H, Globulin 4.5 H, Albumin/Globulin Ratio 1.2, Amylase 57, Lipase 200 Result diagrams: 10/01/20 13:10 10/01/20 13:10 Orders (Tests/Meds): ED MEDICATIONS Discontinued Medications Generic Name Dose Route Start Last Admin Trade Name Freq PRN Reason Stop Dose Admin Diphenhydramine HCl 25 mg 10/01/20 16:27 Diphenhydramine 50mg/Ml Vial IV 10/01/20 16:28 ONCE ONE Sodium Chloride 1,000 mls @ 999 mls/hr 10/01/20 14:45 10/01/20 14:53 Sod Chlor 0.9% 1000ml Bag IV 10/01/20 15:45 999 mls/hr .Q1H1M ROCKY Administration Iopamidol 75 ml 10/01/20 14:19 10/01/20 14:20 Iopamidol-370 (76%);100ml Bottle IV 10/01/20 14:20 75 ml ONCE ONE Administration Ketorolac Tromethamine 30 mg 10/01/20 15:12 10/01/20 15:26 Ketorolac 30mg/Ml Vial IV 10/01/20 15:13 30 mg ONCE ONE Administration Morphine Sulfate 4 mg 10/01/20 15:47 10/01/20 15:49 Morphine 4mg/Ml Syringe IV 10/01/20 15:48 4 mg ONCE ONE Administration Prochlorperazine Edisylate 5 mg 10/01/20 16:27 Prochlorperazine 10mg/2ml Vial IV 10/01/20 16:28 ONCE ONE Promethazine HCl
--- NOTE | 2020-10-01 15:45 | PC.NURSE ---
notified ER MD pt reports Toradol has not helped her abd pain or her migraine. ER MD gave verbal order for Morphine 4mg IV once
[2020-10-01 17:10] VITALS: BP 133/86; PULSE 94; RESP 18; TEMP 36.8; O2SAT 94
== END 2020-10-01 17:12 | disposition home or self-care (01) ==
PROVIDERS: Emergency Provider Emergency Medicine; PCP Emergency Medicine
DX: R10.31 Right lower quadrant pain (principal); R11.2 Nausea with vomiting, unspecified; K21.9 Gastro-esophageal reflux disease without esophagitis; E78.5 Hyperlipidemia, unspecified; E03.9 Hypothyroidism, unspecified
CPT/HCPCS: 74177; 80053; 81001; 82150; 83690; 85025; 96365; 96375; 99283; Q9967

== ENCOUNTER → 2020-10-08 08:06 | Outpatient (CLI) | payer OTHER, SELFPAY ==
--- NOTE | 2020-10-08 08:06 | CT_ITS ---
PROCEDURE: CT HEAD/BRAIN WO CON CLINICAL INDICATION: migraine, headache Severe headache, worsening COMPARISON: No exams were available for comparison TECHNIQUE: Axial images obtained. All CT scans at the facility use one or more dose reduction, viz: automated exposure control, ma/kV adjustment per patient size (including targeted exams where dose is matched to indication, i.e. head), or iterative reconstruction technique. FINDINGS: No midline shift, mass effect, intracranial hemorrhage, hydrocephalus, or extra-axial fluid collection is evident. The calvarium has an unremarkable appearance. No mastoid effusion. Air-fluid levels present in the left sphenoid sinus with mucosal thickening of the sphenoid sinus on the left. There is an old left lamina papyracea fracture with small small amount of fat invaginating into the fracture site. IMPRESSION: 1. No acute intracranial findings. 2. Sphenoid sinus disease. 3. Old left lamina papyracea fracture Dictated by: Lai Benz MD 10/08/2020 08:54 Lai Benz MD in [place] 10/08/2020 08:54
== END ==
LOC: RAD 08:06
PROVIDERS: PCP Emergency Medicine; Visit Provider Specialist
DX: G44.59 Other complicated headache syndrome (principal)
CPT/HCPCS: 70450

== ENCOUNTER → 2020-10-18 18:30 | Outpatient (CLI) | payer OTHER, SELFPAY ==
[2020-10-18 19:06] LABS: Basophils # 0.1 K/mm3 (0-0.2); Basophils % 0.7 % (0.1-2.0); Eosinophils # 0.1 K/mm3 (0.0-0.4); Hematocrit 39.8 % (37.0-47.0); Hemoglobin 13.1 g/dL (12.2-16.2); Lymphocytes # 2.2 K/mm3 (0.7-4.5); Lymphocytes % 31.6 % (10-50); Mean Corpuscular Hemoglobin 26.8 pg (27.0-31.2); Mean Corpuscular Volume 81.1 fl (81-99); Mean Platelet Volume 8.6 fl (7.4-10.4); Monocytes # 0.3 K/mm3 (0.1-1.0); Monocytes % 4.8 % (1.7-9.3); Neutrophils # 4.3 K/mm3 (1.8-7.8); Neutrophils % 60.8 % (37.0-80.0); Platelet Count 206 K/mm3 (142-424); Red Blood Count 4.91 M/mm3 (4.20-5.40); Red Cell Distribution Width 15.6 % (11.5-17.5)
[2020-10-18 19:14] LABS: Alanine Aminotransferase 69 U/L (12-78); Albumin Level 4.5 g/dl (3.5-5.0); Albumin/Globulin Ratio 1.3 (1.1-1.8); Alkaline Phosphatase 130 U/L (38-126); Anion Gap 14.3 mEq/L (5-15); Aspartate Amino Transferase 68 U/L (14-36); Bilirubin,Total 0.7 mg/dl (0.2-1.3); Blood Urea Nitrogen 7 mg/dl (7-17); Calcium 10.1 mg/dl (8.4-10.2); Carbon Dioxide 30 mmol/L (22.0-30.0); Chloride 92 mmol/L (98-107); Cholesterol 224 mg/dl (140-200); Estimated Glomerular Filt Rate 89 ml/min (>60); GFR (African American) 108 ML/MIN (>60); Globulin 3.5 g/dL (1.3-3.2); HDL Cholesterol 28 mg/dl (40-60); Potassium 3.3 mmoL/L (3.5-5.1); Sodium 133 mmol/L (136-145)
[2020-10-18 19:19] LABS: Glucose 480 mg/dl (74-100)
[2020-10-18 19:23] LABS: Triglycerides 559 mg/dl (30-150)
[2020-10-18 19:25] LABS: Direct LDL Cholesterol 103.78 mg/dL (100-129)
[2020-10-18 19:29] LABS: Hemoglobin A1C 7.9 % (4.0-6.0)
[2020-10-18 19:31] LABS: 25-OH Vitamin D, Total 34.6 ng/mL (30-100)
[2020-10-18 19:32] LABS: T4 (Thyroxine) 9.1 ug/dl (5.53-11.0)
[2020-10-18 19:45] LABS: Thyroid Stimulating Hormone 2.32 uIU/mL (0.465-4.68)
[2020-10-18 20:05] LABS: Vitamin B12 376 pg/mL (239-931)
== END ==
LOC: LAB.DROPOF 18:30
PROVIDERS: Visit Provider Nurse Practitioner Family
DX: I27.20 Pulmonary hypertension, unspecified (principal); E11.9 Type 2 diabetes mellitus without complications; R53.83 Other fatigue
CPT/HCPCS: 80053; 80061; 82306; 82607; 83036; 84436; 84443; 85025

== ENCOUNTER → 2020-10-23 13:34 | Outpatient (CLI) | payer OTHER, SELFPAY ==
[2020-10-23 14:42] LABS: Anion Gap 15.7 mEq/L (5-15); Blood Urea Nitrogen 15 mg/dl (7-17); Calcium 9.8 mg/dl (8.4-10.2); Carbon Dioxide 34 mmol/L (22.0-30.0); Chloride 90 mmol/L (98-107); Estimated Glomerular Filt Rate 77 ml/min (>60); GFR (African American) 93 ML/MIN (>60); Potassium 3.7 mmoL/L (3.5-5.1); Sodium 136 mmol/L (136-145)
[2020-10-23 15:08] LABS: Glucose 514 mg/dl (74-100)
[2020-10-27 01:05] LABS: Anti-Cyclic Citrullinated Pept 5 units (0-19)
== END ==
LOC: LAB 13:35
PROVIDERS: Visit Provider Nurse Practitioner Family
DX: E11.9 Type 2 diabetes mellitus without complications (principal); Z79.4 Long term (current) use of insulin
CPT/HCPCS: 36415; 80048; 86200

== ENCOUNTER → 2020-11-04 14:06 | Outpatient (CLI) | payer OTHER, SELFPAY ==
[2020-11-04 14:09] LABS: Microscopic, Urine URINE MICROSCOPIC (MICROSCOPIC)
[2020-11-04 14:44] LABS: Basophils # 0.1 K/mm3 (0-0.2); Basophils % 0.9 % (0.1-2.0); Eosinophils # 0.2 K/mm3 (0.0-0.4); Eosinophils % 2.3 % (0.1-12.0); Hematocrit 38.3 % (37.0-47.0); Hemoglobin 12.8 g/dL (12.2-16.2); Lymphocytes # 2.6 K/mm3 (0.7-4.5); Lymphocytes % 36.9 % (10-50); Mean Corpuscular HGB Conc 33.3 g/dL (31.8-35.4); Mean Corpuscular Hemoglobin 26.7 pg (27.0-31.2); Mean Corpuscular Volume 80.4 fl (81-99); Mean Platelet Volume 7.9 fl (7.4-10.4); Monocytes # 0.3 K/mm3 (0.1-1.0); Monocytes % 4.8 % (1.7-9.3); Neutrophils # 3.9 K/mm3 (1.8-7.8); Neutrophils % 55.2 % (37.0-80.0); Platelet Count 225 K/mm3 (142-424); Red Blood Count 4.77 M/mm3 (4.20-5.40); Red Cell Distribution Width 14.9 % (11.5-17.5)
[2020-11-04 14:45] LABS: Appearance,Urine CLEAR (Clear); Bilirubin,Urine Negative (Negative); Blood, Urine Negative (Negative); Color,Urine YELLOW (Yellow); Glucose,Urine (UA) Negative (Negative); Ketones,Urine Negative (Negative); Leukocyte Esterase,Urine Negative (Negative); Nitrate,Urine Negative (Negative); Protein,Urine Negative (Negative); Urobilinogen,Urine 0.2 EU/dl (0.2)
[2020-11-04 14:56] LABS: Creatinine,Urine Random 193 mg/dL (Not Estab.)
[2020-11-04 16:25] LABS: Albumin Level 4.5 g/dl (3.5-5.0); Anion Gap 9.4 mEq/L (5-15); Blood Urea Nitrogen 7 mg/dl (7-17); Calcium 9.7 mg/dl (8.4-10.2); Carbon Dioxide 38 mmol/L (22.0-30.0); Chloride 96 mmol/L (98-107); Estimated Glomerular Filt Rate 59 ml/min (>60); GFR (African American) 72 ML/MIN (>60); Glucose 236 mg/dl (74-100); Phosphorous 4.1 mg/dl (2.5-4.5); Potassium 3.4 mmoL/L (3.5-5.1); Sodium 140 mmol/L (136-145)
[2020-11-04 18:21] LABS: Bacteria,Urine 2+ /lpf
== END ==
LOC: LAB 14:07
PROVIDERS: Visit Provider Internal Medicine Nephrology
DX: R80.9 Proteinuria, unspecified (principal)
CPT/HCPCS: 36415; 80069; 81001; 82570; 84155; 85025; 87086

== ENCOUNTER → 2020-11-05 10:05 | Outpatient (POV) | payer OTHER, SELFPAY | PROVIDERS: Visit Provider Otolaryngology | DX: Z00.00 Encounter for general adult medical examination without abnormal findings (principal) ==

== ENCOUNTER → 2020-11-27 14:44 | Outpatient (CLI) | payer OTHER, SELFPAY | PROVIDERS: PCP Emergency Medicine; Visit Provider Nurse Practitioner Family | DX: G47.33 Obstructive sleep apnea (adult) (pediatric) (principal); G43.909 Migraine, unspecified, not intractable, without status migrainosus; G47.00 Insomnia, unspecified; I10 Essential (primary) hypertension; Z86.69 Personal history of other diseases of the nervous system and sense organs; Z68.35 Body mass index [BMI] 35.0-35.9, adult | CPT/HCPCS: 95806 ==

== ENCOUNTER → 2020-12-04 08:20 | Outpatient (CLI) | payer OTHER, SELFPAY ==
[2020-12-04 09:20] LABS: Creatine Kinase 50 U/L (30-135)
[2020-12-04 10:29] LABS: Folate 6.89 ng/mL
[2020-12-04 11:13] LABS: Ferritin 117 ng/ml (6.24-137)
[2020-12-06 03:34] LABS: Aldolase 7.7 U/L (3.3-10.3)
[2020-12-06 03:34] LABS: C-Peptide 3.8 ng/mL (1.1-4.4)
[2020-12-08 17:25] LABS: Immunoglobulin E, Total 40 IU/mL (6-495)
== END ==
PROVIDERS: Internal Medicine Pulmonary Disease; Nurse Practitioner Family; Visit Provider Specialist
DX: R06.2 Wheezing (principal); R53.1 Weakness; E83.10 Disorder of iron metabolism, unspecified
CPT/HCPCS: 36415; 82085; 82550; 82728; 82746; 82785; 84681

== ENCOUNTER → 2021-01-13 13:36 | Outpatient (POV) | payer OTHER, SELFPAY | PROVIDERS: Visit Provider Internal Medicine Nephrology | DX: Z00.00 Encounter for general adult medical examination without abnormal findings (principal) ==

== ENCOUNTER → 2021-01-20 09:31 | Outpatient (CLI) | payer OTHER, SELFPAY ==
[2021-01-20 10:49] LABS: Hemoglobin A1C 8.4 % (4.0-6.0)
== END ==
PROVIDERS: Visit Provider Nurse Practitioner Family
DX: E11.9 Type 2 diabetes mellitus without complications (principal); Z79.4 Long term (current) use of insulin
CPT/HCPCS: 36415; 83036

== ENCOUNTER → 2021-04-07 16:28 | Outpatient (CLI) | payer OTHER, SELFPAY | PROVIDERS: Visit Provider Internal Medicine Pulmonary Disease | DX: B96.1 Klebsiella pneumoniae [K. pneumoniae] as the cause of diseases classified elsewhere (principal) | CPT/HCPCS: 87070; 87077; 87186; 87205 ==

== ENCOUNTER → 2021-04-14 14:16 | Outpatient (POV) | payer OTHER, SELFPAY | PROVIDERS: Visit Provider Nurse Practitioner Family | DX: Z00.00 Encounter for general adult medical examination without abnormal findings (principal) ==

== ENCOUNTER → 2021-04-18 09:33 | Outpatient (CLI) | payer OTHER, SELFPAY ==
--- NOTE | 2021-04-18 09:38 | CT_ITS ---
PROCEDURE: CT HIGH RESOLUTION CHEST CLINICAL HISTORY: Cough, pneumonia COMPARISON: CT CHESTWO CT chest wo con from 02/02/2019 TECHNIQUE: Axial images obtained with sagittal and coronal reformats. All CT scans at the facility use one or more dose reduction, viz: automated exposure control, ma/kV adjustment per patient size (including targeted exams where dose is matched to indication, i.e. head), or iterative reconstruction technique. FINDINGS: No mediastinal or hilar mass or adenopathy. Normal heart size. No suspicious nodules infiltrates or effusions. High-resolution images obtained in inspiration show no evidence of pulmonary fibrosis or interstitial thickening. There are few small subpleural blebs and 1 small pneumatocele in the right lower lobe. No bronchiectasis. Posterior longitudinal ligament calcification at T5-T6 causing mild canal stenosis. Upper abdominal images show fatty liver IMPRESSION: No acute finding. No evidence of pneumonia. There are few small subpleural blebs in the right upper lobe. One small pneumatocele less than 1 cm in the right lower lobe. Dictated by: Lai Benz MD 04/19/2021 09:10 Lai Benz MD in [place] 04/19/2021 09:10
[2021-04-18 11:45] LABS: Coronavirus 19, PCR Not Detected (NotDetected); Influenza A, PCR Not Detected (NotDetected); Influenza B, PCR Not Detected (NotDetected)
== END ==
PROVIDERS: PCP Emergency Medicine; Visit Provider Internal Medicine Pulmonary Disease
DX: J84.9 Interstitial pulmonary disease, unspecified (principal); Z20.822 Contact with and (suspected) exposure to COVID-19; B96.1 Klebsiella pneumoniae [K. pneumoniae] as the cause of diseases classified elsewhere; B96.20 Unspecified Escherichia coli [E. coli] as the cause of diseases classified elsewhere
CPT/HCPCS: 71250; 87070; 87077; 87186; 87205; U0003

== ENCOUNTER 2021-04-20 16:06 | Emergency (ER) | payer OTHER, SELFPAY ==
[2021-04-20 16:07] VITALS: BP 111/90; PULSE 70; RESP 16; TEMP 36.7; O2SAT 98; BMI 34.9
--- NOTE | 2021-04-20 16:29 | XR_ITS ---
PROCEDURE INFORMATION: Exam: XR Chest Exam date and time: 04/20/2021 4:29 PM Age: 50 years old Clinical indication: Cough and other: Congestion; Patient HX: Cough and congestion since Wednesday, 2 days. TECHNIQUE: Imaging protocol: XR of the chest. Views: 1 view. COMPARISON: CT HIGH RESOLUTION CHEST 04/18/2021 9:48 AM FINDINGS: Lungs: Unremarkable. No consolidation. Pleural spaces: Unremarkable. No pleural effusion. No pneumothorax. Heart/Mediastinum: Unremarkable. No cardiomegaly. Bones/joints: Unremarkable. IMPRESSION: No acute findings.
[2021-04-20 16:31] VITALS: BP 97/51; PULSE 77; RESP 20; O2SAT 96
[2021-04-20 16:39] LABS: Basophils # 0.1 K/mm3 (0-0.2); Eosinophils # 0.2 K/mm3 (0.0-0.4); Hematocrit 39.2 % (37.0-47.0); Hemoglobin 13.6 g/dL (12.2-16.2); Lymphocytes # 2.3 K/mm3 (0.7-4.5); Lymphocytes % 25.8 % (10-50); Mean Corpuscular HGB Conc 34.7 g/dL (31.8-35.4); Mean Corpuscular Hemoglobin 26.5 pg (27.0-31.2); Mean Corpuscular Volume 76.4 fl (81-99); Mean Platelet Volume 8.3 fl (7.4-10.4); Monocytes # 0.4 K/mm3 (0.1-1.0); Monocytes % 4.5 % (1.7-9.3); Neutrophils % 66.7 % (37.0-80.0); Platelet Count 146 K/mm3 (142-424); Red Blood Count 5.13 M/mm3 (4.20-5.40); Red Cell Distribution Width 15.5 % (11.5-17.5)
--- NOTE | 2021-04-20 16:39 | HMH.EDGENADL ---
ED Disposition Clinical Impression: Atypical pneumonia Disposition: Home, Self-Care Condition on Discharge: Good Instructions: DI for Pneumonia -- Adult Prescriptions: Doxycycline Hyclate [Doxycycline 100mg Capsule] 100 mg PO Q12 10 Days #20 cap Transmission Status: Pending to [facility] Codeine Phosphate/Guaifenesin [Guaifenesin-Codeine Syrup] 5 ml PO Q6 #150 liquid Transmission Status: Sent to [facility] Referrals: Anshul Stephen MD [Primary Care Provider] - - Critical Care Critical Care Time: No Attestation: On 04/20/21, the high probability of a clinically significant, sudden or life threatening deterioration of the following system(s) required my full and direct attention, intervention and personal management. The time I documented below is in addition to time spent performing reported procedures but includes the following listed in this critical care notation. Medical Decision Making - Medical Records Medical records reviewed: Yes: I reviewed the patient's medical records. - Efren Inquiry Pt receiving controlled substance: No Vital Signs: 04/20/21 16:07 04/20/21 16:31 04/20/21 17:00 Temperature 98.1 F Temperature Source Oral Pulse Rate 77 80 Pulse Rate [Right Radial] 70 Respiratory Rate 16 20 20 Blood Pressure 97/51 L 114/65 Blood Pressure [Right Arm] 111/90 Blood Pressure Mean [Right Arm] 97 Blood Pressure Source [Right Arm] Automatic Cuff Blood Pressure Position [Right Arm] Sitting 02 Sat by Pulse Oximetry 98 96 95 Oxygen Delivery Method Room Air - Lab Data Lab Results 04/20/21 16:15: WBC 9.0, RBC 5.13, Hgb 13.6, Hct 39.2, MCV 76.4 L, MCH 26.5 L, MCHC 34.7, RDW 15.5, Plt Count 146, MPV 8.3, Neut % (Auto) 66.7, Lymph % (Auto) 25.8, [place] % (Auto) 4.5, Eos % (Auto) 2.0, Baso % (Auto) 1.0, Neut # (Auto) 6.0, Lymph # (Auto) 2.3, [place] # (Auto) 0.4, Eos # (Auto) 0.2, Baso # (Auto) 0.1 04/20/21 16:15: Sodium 141, Potassium 3.3 L, Chloride 97 L, Carbon Dioxide 34 H, Anion Gap 13.3, BUN 6 L, Creatinine 0.80, Estimated Creat Clear 129, Estimated GFR 77, Est GFR ( Amer) 93, Glucose 300 H, Calcium 9.2, Total Bilirubin 0.7, AST 57 H, ALT 61, Alkaline Phosphatase 134 H, Total Protein 8.0, Albumin 4.6, Globulin 3.4 H, Albumin/Globulin Ratio 1.4 Result diagrams: 04/20/21 16:15 04/20/21 16:15 Orders (Tests/Meds): ED MEDICATIONS Generic Name Dose Route Start Last Admin Trade Name Freq PRN Reason Stop Dose Admin Hydrocodone Bitart/Acetaminophen 1 tab 04/20/21 18:11 Apap/Hydrocodone 325mg/7.5mg Tab PO 04/20/21 18:12 ONCE ONE Sodium Chloride 1,000 mls @ 999 mls/hr 04/20/21 16:30 04/20/21 16:46 Sod Chlor 0.9% 1000ml Bag IV 04/20/21 17:30 999 mls/hr .Q1H1M ROCKY Administration Ceftriaxone Sodium 1 gm/ 50 mls @ 100 mls/hr 04/20/21 16:30 04/20/21 16:47 Sodium Chloride IV 05/04/21 16:29 100 mls/hr Q24H ROCKY Administration Discontinued Medications Generic Name Dose Route Start Last Admin Trade Name Vera PRN Reason Stop Dose Admin Dexamethasone Sodium Phosphate 10 mg 04/20/21 16:29 04/20/21 16:46 Dexamethasone 4mg/Ml 5ml Mdv IV 04/20/21 16:30 10 mg ONCE ONE Administration Ketorolac Tromethamine 30 mg 04/20/21 16:29 04/20/21 16:46 Ketorolac 30mg/Ml Vial IV 04/20/21 16:30 30 mg ONCE ONE Administration Morphine Sulfate 4 mg 04/20/21 17:26 04/20/21 17:34 Morphine 4mg/Ml Syringe IV 04/20/21 17:27 4 mg ONCE ONE Administration Ondansetron HCl 4 mg 04/20/21 17:26 04/20/21 17:34 Ondansetron 4mg/2ml Vial IV 04/20/21 17:27 4 mg ONCE ONE Administration Promethazine HCl/Codeine 5 ml 04/20/21 16:31 04/20/21 16:33 Promethazine W/Codeine 6.25mg/10mg 5ml Udc PO 04/20/21 16:32 5 ml ONCE ONE Administration - Radiology Data #1 Image(s): Chest Image Reviewed: Yes I reviewed the patient's radiology results, Yes I reviewed the patient's radiology image,
[2021-04-20 16:40] LABS: Chloride 97 mmol/L (98-107); Potassium 3.3 mmoL/L (3.5-5.1); Sodium 141 mmol/L (136-145)
[2021-04-20 16:42] LABS: Blood Urea Nitrogen 6 mg/dl (7-17); Creatinine Clearance Estimated 129 mL/min (50-200); Estimated Glomerular Filt Rate 77 ml/min (>60); GFR (African American) 93 ML/MIN (>60)
[2021-04-20 16:43] LABS: Alanine Aminotransferase 61 U/L (12-78); Albumin Level 4.6 g/dl (3.5-5.0); Albumin/Globulin Ratio 1.4 (1.1-1.8); Alkaline Phosphatase 134 U/L (38-126); Anion Gap 13.3 mEq/L (5-15); Aspartate Amino Transferase 57 U/L (14-36); Bilirubin,Total 0.7 mg/dl (0.2-1.3); Calcium 9.2 mg/dl (8.4-10.2); Carbon Dioxide 34 mmol/L (22.0-30.0); Globulin 3.4 g/dL (1.3-3.2); Glucose 300 mg/dl (74-100)
[2021-04-20 17:00] VITALS: BP 114/65; PULSE 80; RESP 20; O2SAT 95
[2021-04-20 18:15] LABS: Microscopic, Urine URINE MICROSCOPIC (MICROSCOPIC)
[2021-04-20 18:18] LABS: Appearance,Urine SL CLOUDY (Clear); Bilirubin,Urine Negative (Negative); Blood, Urine Negative (Negative); Color,Urine STRAW (Yellow); Glucose,Urine (UA) TRACE (Negative); Ketones,Urine Negative (Negative); Leukocyte Esterase,Urine TRACE (Negative); Nitrate,Urine Negative (Negative); Protein,Urine Negative (Negative); Urobilinogen,Urine 0.2 EU/dl (0.2)
[2021-04-20 18:25] LABS: Bacteria,Urine Trace /lpf; Squamous Epithelial Cell,Urine Occasional #/hpf (0-5); WBC,Urine Occasional #/hpf (0-3)
[2021-04-20 18:48] VITALS: BP 155/74; PULSE 78; RESP 20; TEMP 36.6; O2SAT 94
== END 2021-04-20 18:50 | disposition home or self-care (01) ==
PROVIDERS: Emergency Provider Emergency Medicine; PCP Emergency Medicine
DX: J18.9 Pneumonia, unspecified organism (principal); K21.9 Gastro-esophageal reflux disease without esophagitis; J45.909 Unspecified asthma, uncomplicated; E78.5 Hyperlipidemia, unspecified; E03.9 Hypothyroidism, unspecified; Z79.899 Other long term (current) drug therapy
CPT/HCPCS: 71045; 80053; 81001; 85025; 96365; 96367; 96375; 99283; J2405

== ENCOUNTER → 2021-05-07 18:00 | Outpatient (CLI) | payer OTHER, SELFPAY ==
[2021-05-07 19:11] LABS: Alanine Aminotransferase 45 U/L (12-78); Albumin Level 4.1 g/dl (3.5-5.0); Albumin/Globulin Ratio 1.3 (1.1-1.8); Alkaline Phosphatase 146 U/L (38-126); Aspartate Amino Transferase 44 U/L (14-36); Bilirubin,Total 0.7 mg/dl (0.2-1.3); Blood Urea Nitrogen 12 mg/dl (7-17); Calcium 9.1 mg/dl (8.4-10.2); Carbon Dioxide 32 mmol/L (22.0-30.0); Chloride 93 mmol/L (98-107); Cholesterol 155 mg/dl (140-200); Estimated Glomerular Filt Rate 89 ml/min (>60); GFR (African American) 108 ML/MIN (>60); Globulin 3.2 g/dL (1.3-3.2); Glucose 209 mg/dl (74-100); HDL Cholesterol 31 mg/dl (40-60); Sodium 137 mmol/L (136-145); Total Protein,Serum 7.3 g/dl (6.3-8.2); Triglycerides 329 mg/dl (30-150); VLDL Cholesterol 66 mg/dL (0-40)
[2021-05-07 19:28] LABS: T4 (Thyroxine) 9.4 ug/dl (5.53-11.0)
[2021-05-07 19:35] LABS: Hemoglobin A1C 9.3 % (4.0-6.0)
[2021-05-07 19:42] LABS: Thyroid Stimulating Hormone 2.18 uIU/mL (0.465-4.68)
[2021-05-07 20:14] LABS: Basophils # 0.1 K/mm3 (0-0.2); Basophils % 1.1 % (0.1-2.0); Eosinophils # 0.2 K/mm3 (0.0-0.4); Eosinophils % 2.2 % (0.1-12.0); Hematocrit 38.4 % (37.0-47.0); Hemoglobin 13.2 g/dL (12.2-16.2); Lymphocytes # 3.1 K/mm3 (0.7-4.5); Lymphocytes % 41.9 % (10-50); Mean Corpuscular HGB Conc 34.4 g/dL (31.8-35.4); Mean Corpuscular Hemoglobin 27.3 pg (27.0-31.2); Mean Corpuscular Volume 79.4 fl (81-99); Mean Platelet Volume 9.5 fl (7.4-10.4); Monocytes # 0.4 K/mm3 (0.1-1.0); Monocytes % 5.8 % (1.7-9.3); Neutrophils # 3.6 K/mm3 (1.8-7.8); Neutrophils % 48.9 % (37.0-80.0); Platelet Count 236 K/mm3 (142-424); Red Blood Count 4.83 M/mm3 (4.20-5.40); Red Cell Distribution Width 15.9 % (11.5-17.5); White Blood Count 7.4 K/mm3 (4.8-10.8)
[2021-05-07 20:37] LABS: 25-OH Vitamin D, Total 42.1 ng/mL (30-100)
[2021-05-09 13:34] LABS: C-Peptide 7.6 ng/mL (1.1-4.4)
== END ==
PROVIDERS: Visit Provider Nurse Practitioner Family
DX: E11.9 Type 2 diabetes mellitus without complications (principal); I27.20 Pulmonary hypertension, unspecified; R73.9 Hyperglycemia, unspecified; E66.9 Obesity, unspecified; Z68.35 Body mass index [BMI] 35.0-35.9, adult; Z79.4 Long term (current) use of insulin
CPT/HCPCS: 80053; 80061; 82306; 83036; 84436; 84443; 84681; 85025

== ENCOUNTER → 2021-05-15 14:13 | Outpatient (CLI) | payer OTHER, SELFPAY ==
[2021-05-15 15:46] LABS: Anion Gap 13.6 mEq/L (5-15); Blood Urea Nitrogen 9 mg/dl (7-17); Calcium 8.7 mg/dl (8.4-10.2); Carbon Dioxide 31 mmol/L (22.0-30.0); Chloride 94 mmol/L (98-107); Estimated Glomerular Filt Rate 77 ml/min (>60); GFR (African American) 93 ML/MIN (>60); Glucose 370 mg/dl (74-100); Potassium 3.6 mmoL/L (3.5-5.1); Sodium 135 mmol/L (136-145)
== END ==
PROVIDERS: Visit Provider Nurse Practitioner Family
DX: E87.6 Hypokalemia (principal)
CPT/HCPCS: 36415; 80048

== ENCOUNTER → 2021-05-21 10:43 | Outpatient (CLI) | payer OTHER, SELFPAY ==
--- NOTE | 2021-05-21 10:45 | XR_ITS ---
PROCEDURE: XR CERVICAL SPINE 3V CLINICAL INDICATION: neck pain and burning sensation occipital area COMPARISON: No exams were available for comparison FINDINGS: There is normal alignment. No fracture or dislocation is evident. C7 is not well visualized. There is a faint outline of C7 seen on the swimmer's view which is normal and alignment. There is mild degenerative disc disease from C2-C7. There is straightening of the cervical lordosis. IMPRESSION: Mild degenerative changes with straightening of the cervical lordosis Dictated by: Lai Benz MD 05/21/2021 11:09 Lai Benz MD in [place] 05/21/2021 11:09
== END ==
PROVIDERS: PCP Emergency Medicine; Visit Provider Specialist
DX: M54.2 Cervicalgia (principal)
CPT/HCPCS: 72040

== ENCOUNTER → 2021-05-23 08:48 | Outpatient (CLI) | payer OTHER, SELFPAY ==
--- NOTE | 2021-05-23 08:48 | MM_ITS ---
PROCEDURE: MM DIG SCREENING MAMM BI W/CAD Digital Breast Tomosynthesis Included CLINICAL INDICATION: Routine Mammogram Screening COMPARISON: MG SCBI MM Dig screening mamm BI w/CAD from 04/14/2018 MG MM DIG SCREENING MAMM BI W/CAD from 05/18/2019 MG MM DIG SCREENING MAMM BI W/CAD from 05/21/2020 TECHNIQUE: Standard CC and MLO images and 3D Tomosynthesis was obtained. R2 CAD reviewed. FINDINGS: There are scattered areas of fibroglandular density. No suspicious appearing mass, malignant-appearing microcalcification, architectural distortion, or skin thickening.. The benign calcifications left breast. No change IMPRESSION: Benign findings BI-RAD Category: 2 Benign Finding FOLLOW-UP: 1 YR 1 Year Follow-up (A letter has been sent to the patient regarding results of the study.) Dictated by: Lai Benz MD 06/09/2021 11:32 Lai Benz MD in [place] 06/09/2021 11:32
== END ==
PROVIDERS: PCP Emergency Medicine; Visit Provider Nurse Practitioner Obstetrics & Gynecology
DX: Z12.31 Encounter for screening mammogram for malignant neoplasm of breast (principal)
CPT/HCPCS: 77063; 77067

== ENCOUNTER 2021-07-23 16:30 | Outpatient (RCR) | payer OTHER, SELFPAY ==
--- NOTE | 2021-07-03 17:40 | HMH.RHREAS ---
Rehab Reassessment Rehab OP Re-assessment Start: 07/03/21 17:23 Freq: Status: Active Protocol: Document 07/03/21 17:24 ANDREY (Rec: 07/03/21 17:40 ANDREY [id number]) Electronically Signed By Steve Holt, PT 07/03/21 17:24 Rehab Re-assessment Subjective Subjective Patient reports 60% improvement since start of care. Objective Objective Notes CROM: Flx 62, ext 45, 54, 48, 62, 64 Wrist AROM: WFL BUE MMT: WFL Pain: 1 currently; 1/10 at best; 6/10 at worst Special tests negative Assessment Progress Assessment Progressing as Expected Assessment Notes Objective improvements as noted above. Patient has been seen for 7 visits to date. Rx has consisted to cervical mm stretching, ROM, mechanical traction, dry needling and modalities for pain/ inflammation. Patient requested to focus on cervical and upper thoracic symptoms, and focus on CTS treatment at home. She has had some improvements since introduction of wrist splints. She continues to have functional limtations with any desk work, reaching, lifting or gripping activities. Patient goals met STG 2, LTG 1-4 Goals Not Met STG 1, LTG 5-7 Revised Goals NA Plan Plan Continue with current POC. Frequency of Therapy 1x/week Duration of therapy 4 weeks Time and Billing Re-Eval Time 15 Re-Eval Billing Units 1 PHYSICIAN CERTIFICATION: I certify the specified therapy services for Manisha Leija are required, authorized, and reviewed every 30 days.
== END 2021-07-23 16:35 | disposition home or self-care (01) ==
LOC: PT 16:30
PROVIDERS: PCP Emergency Medicine; Visit Provider Specialist
DX: G43.909 Migraine, unspecified, not intractable, without status migrainosus (principal); M54.2 Cervicalgia; G56.03 Carpal tunnel syndrome, bilateral upper limbs
CPT/HCPCS: 20560; 20561; 97010; 97012; 97014; 97033; 97035; 97110; 97140; 97163; 97164; 97760; G0283

== ENCOUNTER → 2021-07-25 14:33 | Outpatient (CLI) | payer OTHER, SELFPAY ==
[2021-07-27 08:11] LABS: FSH 27.9 mIU/mL (.); LH 11.9 mIU/mL (.)
== END ==
PROVIDERS: Visit Provider Nurse Practitioner Obstetrics & Gynecology
DX: N95.1 Menopausal and female climacteric states (principal)
CPT/HCPCS: 36415; 83001; 83002

== ENCOUNTER 2021-08-07 08:46 | Outpatient (CLI) | payer OTHER, SELFPAY ==
[2021-08-07] VITALS (7 sets, daily range): BP systolic 108–139; BP diastolic 57–87; PULSE 70–78; RESP 14; TEMP 36.6; O2SAT 96–99; BMI 33.3
[2021-08-07 09:01] LABS: Influenza A, PCR Not Detected (NotDetected); Influenza B, PCR Not Detected (NotDetected)
[2021-08-07 09:32] LABS: Coronavirus 19, PCR Detected (NotDetected)
== END 2021-08-07 12:02 | disposition home or self-care (01) ==
LOC: HMH.CTC 08:46 → INF 09:47
PROVIDERS: Nurse Practitioner; PCP Emergency Medicine; Visit Provider Emergency Medicine
DX: U07.1 COVID-19 (principal); Z23 Encounter for immunization
CPT/HCPCS: 96365; C9803; U0003; U0005

== ENCOUNTER → 2021-10-02 09:19 | Outpatient (CLI) | payer OTHER, SELFPAY ==
[2021-10-02 09:21] LABS: Astrovirus Not Detected (NotDetected); Campylobacter Not Detected (NotDetected); Clostridium Difficile A/B, PCR Not Detected (NotDetected); Cryptosporidium Not Detected (NotDetected); Cyclospora Cayetanesis Not Detected (NotDetected); Entamoeba histolytica Not Detected (NotDetected); Enteroaggregative E coli Not Detected (NotDetected); Enteropathogenic E coli Not Detected (NotDetected); Enterotoxigenic E coli Not Detected (NotDetected); Giardia lamblia Not Detected (NotDetected); Norovirus Not Detected (NotDetected); Plesimonas Shigalloides, PCR Not Detected (NotDetected); Rotavirus A Not Detected (NotDetected); Salmonella, PCR Not Detected (NotDetected); Sapovirus Not Detected (NotDetected); Shiga-like toxin E coli Not Detected (NotDetected); Shigella Enterovasive E coli Not Detected (NotDetected); Vibrio Cholerae Not Detected (NotDetected); Vibrio, PCR Not Detected (NotDetected); Yersinia Entercolitica, PCR Not Detected (NotDetected)
[2021-10-02 13:28] LABS: Adenovirus F 40/41, stool Detected (NotDetected)
== END ==
PROVIDERS: Visit Provider Internal Medicine Pulmonary Disease
DX: R19.7 Diarrhea, unspecified (principal); B97.0 Adenovirus as the cause of diseases classified elsewhere
CPT/HCPCS: 87506

== ENCOUNTER → 2021-12-02 10:28 | Outpatient (CLI) | payer OTHER, SELFPAY ==
--- NOTE | 2021-12-02 10:30 | XR_ITS ---
FINAL REPORT CLINICAL HISTORY: foot pain FINDINGS: RIGHT FOOT Three views demonstrate no acute fracture or dislocation. There is mild degenerative change. No acute soft tissue abnormality is seen. IMPRESSION: Mild degenerative change with no acute process. Reviewed, Interpreted and Dictated by Vernon Yates III, MD Transcribed by Adia Morales Authenticated by Vernon Yates III, MD on 12/02/2021 11:28:58 AM [facility]
--- NOTE | 2021-12-02 10:30 | XR_ITS ---
FINAL REPORT CLINICAL HISTORY: foot pain FINDINGS: LEFT FOOT Three views demonstrate no acute fracture or dislocation. The joint spaces appear normal. No acute soft tissue abnormality is seen. IMPRESSION: No acute process. Reviewed, Interpreted and Dictated by Vernon Yates III, MD Transcribed by Adia Morales Authenticated by Vernon Yates III, MD on 12/02/2021 11:28:49 AM [facility]
== END ==
LOC: RAD 10:29
PROVIDERS: PCP Emergency Medicine; Visit Provider Podiatrist
DX: E11.8 Type 2 diabetes mellitus with unspecified complications (principal); M79.672 Pain in left foot; M79.671 Pain in right foot; Z79.4 Long term (current) use of insulin
CPT/HCPCS: 73630

== ENCOUNTER → 2021-12-16 08:41 | Outpatient (POV) | payer OTHER, SELFPAY | PROVIDERS: Visit Provider Dermatology | DX: Z00.00 Encounter for general adult medical examination without abnormal findings (principal) ==

== ENCOUNTER → 2022-01-04 19:24 | Outpatient (CLI) | payer OTHER, SELFPAY ==
[2022-01-04 20:24] LABS: Basophils # 0.2 K/mm3 (0-0.2); Basophils % 2.1 % (0.1-2.0); Eosinophils # 0.1 K/mm3 (0.0-0.4); Eosinophils % 1.8 % (0.1-12.0); Hematocrit 38.6 % (37.0-47.0); Hemoglobin 13.1 g/dL (12.2-16.2); Lymphocytes # 2.5 K/mm3 (0.7-4.5); Lymphocytes % 35.6 % (10-50); Mean Corpuscular Volume 79.4 fl (81-99); Mean Platelet Volume 9.1 fl (7.4-10.4); Monocytes # 0.4 K/mm3 (0.1-1.0); Neutrophils % 55.5 % (37.0-80.0); Platelet Count 179 K/mm3 (142-424); Red Blood Count 4.86 M/mm3 (4.20-5.40); Red Cell Distribution Width 16.2 % (11.5-17.5); White Blood Count 7.1 K/mm3 (4.8-10.8)
[2022-01-04 20:31] LABS: Alanine Aminotransferase 64 U/L (12-78); Albumin Level 4.4 g/dl (3.5-5.0); Albumin/Globulin Ratio 1.4 (1.1-1.8); Alkaline Phosphatase 129 U/L (38-126); Anion Gap 12.8 mEq/L (5-15); Aspartate Amino Transferase 58 U/L (14-36); Bilirubin,Total 0.7 mg/dl (0.2-1.3); Blood Urea Nitrogen 16 mg/dl (7-17); Calcium 8.7 mg/dl (8.4-10.2); Carbon Dioxide 29 mmol/L (22.0-30.0); Chloride 94 mmol/L (98-107); Chol/HDL Ratio 5.3 (1-3.5); Cholesterol 185 mg/dl (140-200); Estimated Glomerular Filt Rate 76 ml/min (>60); GFR (African American) 92 ML/MIN (>60); Globulin 3.2 g/dL (1.3-3.2); HDL Cholesterol 35 mg/dl (40-60); Potassium 3.8 mmoL/L (3.5-5.1); Sodium 132 mmol/L (136-145); Total Protein,Serum 7.6 g/dl (6.3-8.2)
[2022-01-04 20:38] LABS: Hemoglobin A1C 9.4 % (4.0-6.0); Microalbumin < 6.000 mg/L (0-16.7)
[2022-01-04 20:42] LABS: Direct LDL Cholesterol 78.67 mg/dL (100-129)
[2022-01-04 20:44] LABS: Glucose 432 mg/dl (74-100); Triglycerides 428 mg/dl (30-150)
[2022-01-04 20:47] LABS: T4 (Thyroxine) 8.1 ug/dl (5.53-11.0)
[2022-01-04 20:48] LABS: 25-OH Vitamin D, Total 38.8 ng/mL (30-100)
[2022-01-04 21:01] LABS: Thyroid Stimulating Hormone 3.53 uIU/mL (0.465-4.68)
== END ==
LOC: LAB 19:24
PROVIDERS: Visit Provider Nurse Practitioner Family
DX: E11.40 Type 2 diabetes mellitus with diabetic neuropathy, unspecified (principal); E66.9 Obesity, unspecified; Z68.34 Body mass index [BMI] 34.0-34.9, adult; Z79.4 Long term (current) use of insulin
CPT/HCPCS: 80053; 80061; 82043; 82306; 83036; 84436; 84443; 85025

== ENCOUNTER → 2022-01-08 10:07 | Outpatient (CLI) | payer OTHER, SELFPAY ==
--- NOTE | 2022-01-08 10:25 | XR_ITS ---
FINAL REPORT CLINICAL HISTORY: shortness of breath COMPARISON: April 20, 2021 FINDINGS: Two views of the chest were obtained. The heart size and pulmonary vascularity are within normal limits. The mediastinum is normal. No acute pulmonary abnormality is identified. There is no pneumothorax. The bony thorax is intact. IMPRESSION: No active cardiopulmonary disease. Reviewed, Interpreted and Dictated by Vernon Yates III, MD Transcribed by Jalil Burns Authenticated by Vernon Yates III, MD on 01/08/2022 11:20:37 AM [facility]
== END ==
PROVIDERS: PCP Emergency Medicine; Visit Provider Nurse Practitioner Family
DX: R06.02 Shortness of breath (principal)
CPT/HCPCS: 71046

== ENCOUNTER 2022-03-10 18:59 | Emergency (ER) | payer OTHER, SELFPAY ==
[2022-03-10 19:00] VITALS: BP 148/90; PULSE 73; RESP 18; TEMP 36.9; O2SAT 99; BMI 34.9
--- NOTE | 2022-03-10 19:08 | HMH.EDHA ---
ED Disposition Condition on Discharge: Fair - Critical Care Critical Care Time: No Clinical Impression: Migraine Qualifiers: Migraine type: without aura Headache Qualifiers: Headache type: unspecified Headache chronicity pattern: acute headache Intractability: not intractable Qualified Code(s): R51.9 - Headache, unspecified Disposition: Home, Self-Care Instructions: DI for Headache Additional Instructions: pt with improvement and will call neuro in am Referrals: Anshul Stephen MD [Primary Care Provider] - Attestation: On 03/10/22, the high probability of a clinically significant, sudden or life threatening deterioration of the following system(s) required my full and direct attention, intervention and personal management. The time I documented below is in addition to time spent performing reported procedures but includes the following listed in this critical care notation. Medical Decision Making - Efren Inquiry Pt receiving controlled substance: No - Reevaluation(s) Time: 19:46 Vital Signs: 03/10/22 19:00 03/10/22 20:25 Temperature 98.4 F Temperature Source Oral Pulse Rate 70 Pulse Rate [Right] 73 Respiratory Rate 18 16 Blood Pressure 141/74 H Blood Pressure [Right Arm] 148/90 H Blood Pressure Mean [Right Arm] 109 Blood Pressure Position Sitting 02 Sat by Pulse Oximetry 99 97 Oxygen Delivery Method Room Air Orders (Tests/Meds): ED MEDICATIONS Generic Name Dose Route Start Last Admin Trade Name Freq PRN Reason Stop Dose Admin Sodium Chloride 1,000 mls @ 999 mls/hr 03/10/22 19:45 03/10/22 20:17 Sod Chlor 0.9% 1000ml Bag IV 03/10/22 20:45 999 mls/hr .Q1H1M ROCKY Administration Discontinued Medications Generic Name Dose Route Start Last Admin Trade Name Freq PRN Reason Stop Dose Admin Diphenhydramine HCl 50 mg 03/10/22 20:16 03/10/22 20:19 Diphenhydramine 50mg/Ml Vial IV 03/10/22 20:17 50 mg ONCE ONE Administration Hydromorphone HCl 1 mg 03/10/22 20:54 03/10/22 20:56 Hydromorphone 2mg/Ml Syringe IV 03/10/22 20:55 1 mg ONCE ONE Administration Ketorolac Tromethamine 30 mg 03/10/22 19:09 03/10/22 19:13 Ketorolac 30mg/Ml Vial IV 03/10/22 19:10 30 mg ONCE ONE Administration Metoclopramide HCl 10 mg 03/10/22 19:09 03/10/22 19:13 Metoclopramide Hcl 10mg/2ml Vial IVP 03/10/22 19:10 10 mg ONCE ONE Administration Morphine Sulfate 5 mg 03/10/22 19:26 03/10/22 20:17 Morphine 10mg/Ml Syringe IV 03/10/22 19:27 Not Given ONCE ONE Morphine Sulfate 4 mg 03/10/22 19:28 03/10/22 19:29 Morphine 4mg/Ml Syringe IV 03/10/22 19:29 4 mg ONCE ONE Administration Prochlorperazine Edisylate 10 mg 03/10/22 21:22 03/10/22 21:37 Prochlorperazine 10mg/2ml Vial IV 03/10/22 21:23 10 mg ONCE ONE Administration Promethazine HCl 25 mg 03/10/22 20:54 03/10/22 20:56 Promethazine Hcl 25mg/Ml 1ml Vial IV 03/10/22 20:55 25 mg ONCE ONE Administration Sodium Chloride 25 ml 03/10/22 20:54 Sodium Chloride 0.9% 25ml Bag IV 03/10/22 20:55 ONCE ONE Sumatriptan Succinate 6 mg 03/10/22 19:45 03/10/22 20:18 Sumatriptan 6mg/0.5ml Vial SQ 03/10/22 19:46 6 mg ONCE ONE Administration - Reevaluation(s) Reevaluation #1: Patient continues to have a headache and says it has not changed after 10 mg of Reglan, 30 mg of Toradol, and 4 mg of morphine. We will now try Imitrex and IV fluids. (Charline Ayala) Medical Decision Narrative: The care of this patient is being transferred to Dr Stephen. Imitrex and IVF have been ordered. The patient appears stable. She has no meningeal signs. She has no fever. Her headache is her usual headache. (Charline Ayala) Headache HPI - General Stated Complaint: Migrane Time Seen by Provider: 03/10/22 19:08 - History of Present Illness HPI Narrative: The patient presents to the emergency department complaining of a migraine headache since 4 AM. She
[2022-03-10 20:25] VITALS: BP 141/74; PULSE 70; RESP 16; O2SAT 97
[2022-03-10 22:07] VITALS: BP 134/78; PULSE 67; RESP 16; TEMP 36.9; O2SAT 97
== END 2022-03-10 22:08 | disposition home or self-care (01) ==
PROVIDERS: Emergency Provider Emergency Medicine; PCP Emergency Medicine
DX: R51.9 Headache, unspecified (principal); Z88.8 Allergy status to other drugs, medicaments and biological substances; J45.909 Unspecified asthma, uncomplicated; E10.9 Type 1 diabetes mellitus without complications; E11.9 Type 2 diabetes mellitus without complications; K21.9 Gastro-esophageal reflux disease without esophagitis; E78.5 Hyperlipidemia, unspecified; Z79.4 Long term (current) use of insulin; Z96.41 Presence of insulin pump (external) (internal)
CPT/HCPCS: 96365; 96372; 96375; 99284

== ENCOUNTER → 2022-03-16 09:33 | Outpatient (CLI) | payer OTHER, SELFPAY ==
--- NOTE | 2022-03-16 09:36 | XR_ITS ---
FINAL REPORT CLINICAL HISTORY: pain, injury COMPARISON: 12/02/2021 FINDINGS: LEFT FOOT 2 views of the left foot were obtained. There is no acute fracture or dislocation. Visualized joint spaces are normally aligned. Soft tissues are unremarkable. IMPRESSION: No acute bony abnormality. Reviewed, Interpreted and Dictated by Robert Burciaga MD Transcribed by Jeni Powers Authenticated and [facility]
--- NOTE | 2022-03-16 09:36 | XR_ITS ---
FINAL REPORT CLINICAL HISTORY: pain, injury FINDINGS: LEFT ANKLE Three views demonstrate no acute fracture or dislocation. The visualized joint spaces are normally aligned. The soft tissues are unremarkable. IMPRESSION: No acute bony abnormality. Reviewed, Interpreted and Dictated by Robert Burciaga MD Transcribed by Jeni Powers Authenticated and [facility]
== END ==
PROVIDERS: PCP Emergency Medicine; Visit Provider Podiatrist
DX: M79.672 Pain in left foot (principal)
CPT/HCPCS: 73610; 73630

== ENCOUNTER → 2022-03-27 08:54 | Outpatient (CLI) | payer OTHER, SELFPAY ==
[2022-03-27 08:54] VITALS: BMI 42.0
== END ==
PROVIDERS: PCP Emergency Medicine; Visit Provider Emergency Medicine
DX: J18.9 Pneumonia, unspecified organism (principal)
CPT/HCPCS: J0696

== ENCOUNTER 2022-04-06 08:59 | Emergency (ER) | payer OTHER, SELFPAY ==
[2022-04-06 09:00] VITALS: BP 131/87; PULSE 70; RESP 19; TEMP 36.6; O2SAT 97; BMI 35.5
--- NOTE | 2022-04-06 09:10 | HMH.EDUTC ---
[facility] Disposition Clinical Impression: Sinusitis Qualifiers: Sinusitis location: unspecified location Chronicity: unspecified Qualified Code(s): J32.9 - Chronic sinusitis, unspecified Disposition: Home, Self-Care Condition on Discharge: Good Instructions: Sinusitis, Sinus Headache, DI for Sinusitis Additional Instructions: *Monitor Temp, Over the counter Motrin or Tylenol as directed/as needed Tylenol every 4 hours and Motrin every 6 hours (as long as your family doctor has told you that you can take it) for fever or pain. and straight to ER if unable to lower temp less than 101.0 after medication given *Warm salt water gargles may help to soothe the throat *Throat Lozenges *Warm fluids like tea with honey may help to soothe the throat *Sleep elevated *Humidifier/Vaporizer Take medication as prescribed Return if needed Follow up IMMEDIATELY for new or worsening symptoms or no Noticeable improvement over the next 48-72 hours. 911 for difficulty breathing or swallowing Prescriptions: Amoxicillin/Potassium Clav [Amox-Clav 875-125 mg Tablet] 1 tab PO BID #20 tab Transmission Status: Sent to [facility] Promethazine/Dextromethorphan [Promethazine-Dm Syrup] 2.5 - 5 ml PO Q6H PRN #150 ml PRN Reason: Cough Transmission Status: Sent to [facility] Referrals: Anshul Stephen MD [Primary Care Provider] - As needed Time of Disposition: 09:30 Medical Decision Making - Efren Inquiry Pt receiving controlled substance: No Efren was queried for this patient: No Vital Signs: 04/06/22 09:00 04/06/22 09:28 Temperature 97.9 F 97.9 F Temperature Source Oral Pulse Rate 70 Pulse Rate [Right Brachial] 70 Respiratory Rate 19 19 Blood Pressure 131/87 Blood Pressure [Right Arm] 131/87 Blood Pressure Mean [Right Arm] 101 Blood Pressure Source [Right Arm] Automatic Cuff Blood Pressure Position [Right Arm] Sitting 02 Sat by Pulse Oximetry 97 Oxygen Delivery Method Room Air Orders (Tests/Meds): ED MEDICATIONS Discontinued Medications Generic Name Dose Route Start Last Admin Trade Name Freq PRN Reason Stop Dose Admin Ceftriaxone Sodium 1 gm 04/06/22 09:13 04/06/22 09:25 Ceftriaxone 1gm Vial IM 04/06/22 09:14 1 gm ONCE ONE Administration Ketorolac Tromethamine 60 mg 04/06/22 09:13 04/06/22 09:25 Ketorolac 60mg/2ml Vial IM 04/06/22 09:14 60 mg ONCE ONE Administration Lidocaine HCl 0 ml 04/06/22 09:13 04/06/22 09:25 Lidocaine 1% 5ml Pf Vial IM 04/06/22 09:14 2 ml ONCE ONE Administration Methylprednisolone Sodium Succinate 125 mg 04/06/22 09:13 04/06/22 09:25 Methylprednisolone Sod Succ 125mg Vial IM 04/06/22 09:14 125 mg ONCE ONE Administration Medical Decision Narrative: Patient reports that she has taken augmentin and prometh dm in the past without complications or reactions [facility] HPI - General Stated complaint: congestion, MUNIZ, sore throat Time Seen by Provider: 04/06/22 09:10 Mode of Arrival: Ambulatory Source of Information: Patient Limitations: No Limitations Description of Symptoms (Recalled from Triage Doc. by RN): PATIENT C/O SORE THROAT, EAR ACHE, HEADACHE, AND BODY ACHES X 1 WEEK HEENT Symptoms (Recalled from RN notes): Yes Resp Symptoms (Recalled from RN notes): No Skin Symptoms (Recalled from RN notes): No MS Symptoms (Recalled from RN notes): No Functional Status (Recalled from RN notes): WNL - History of Present Illness Provider Complaint: Patient state that she hasnt felt well for about a week States that she has been having sinus pain and pressure with headache and cough with pressure like feeling in both ears and pressure behind her eyes and scratchy throat - Related Data Home Medications Medication Instructions Recorded Confirmed Syringe and Needle,Insulin,1Ml 0 units .ROUTE .MEDSUPPLY 07/10/19 03/16/22 [Safetyglide Insulin Syringe] pen needle, diabetic 32 gauge x 1 each .ROUTE .MEDSUPPLY #50 each 01
[2022-04-06 09:28] VITALS: BP 131/87; PULSE 70; RESP 19; TEMP 36.6; O2SAT 97
== END 2022-04-06 09:34 | disposition home or self-care (01) ==
PROVIDERS: Emergency Provider Nurse Practitioner; PCP Emergency Medicine
DX: J02.9 Acute pharyngitis, unspecified (principal)
CPT/HCPCS: 96372; 99212; G0463; J0696

== ENCOUNTER → 2022-04-14 10:32 | Outpatient (CLI) | payer OTHER, SELFPAY ==
--- NOTE | 2022-04-14 10:34 | XR_ITS ---
FINAL REPORT CLINICAL HISTORY: pain, f/u COMPARISON: 03/16/2022 FINDINGS: 3 weight-bearing views of the left foot were obtained. There is stable irregularity of the tuft of the 3rd distal phalanx. The joint spaces are intact. The soft tissues are unremarkable. IMPRESSION: Stable irregularity of the tuft of the 3rd distal phalanx. Subacute fracture cannot be excluded. Correlate with site of pain. Reviewed, Interpreted and Dictated by Vernon Yates III, MD Transcribed by Jalil Burns Authenticated and [facility]
== END ==
PROVIDERS: PCP Emergency Medicine; Visit Provider Podiatrist
DX: M79.672 Pain in left foot (principal); R60.0 Localized edema; S90.32XA Contusion of left foot, initial encounter
CPT/HCPCS: 73630

== ENCOUNTER 2022-04-15 12:35 | Emergency (ER) | payer OTHER, SELFPAY ==
[2022-04-15] VITALS (7 sets, daily range): BP systolic 134–198; BP diastolic 71–107; PULSE 72–88; RESP 16–18; TEMP 36.6–37.1; O2SAT 96–100; BMI 40.2
--- NOTE | 2022-04-15 12:40 | PC.NURSE ---
pt given warm blanket
--- NOTE | 2022-04-15 12:49 | CT_ITS ---
FINAL REPORT TECHNIQUE: Axial images through the pelvis were performed by computed tomography. Sagittal and coronal reformatted images were obtained and reviewed. This study was performed with techniques to keep radiation doses as low as reasonably achievable (ALARA). Individualized dose reduction techniques using automated exposure control or adjustment of mA and/or kV according to the patient's size were employed. CLINICAL HISTORY: fall FINDINGS: No acute fracture is identified. There are mild degenerative changes of both hips. There is a sclerotic area in the superior femoral heads bilaterally worrisome for avascular necrosis. Presumed pelvic stimulator is identified. IMPRESSION: No acute fracture identified. Findings worrisome for avascular necrosis. If indicated, MRI could further evaluate. Reviewed, Interpreted and Dictated by Vernon Yates III, MD Transcribed by Anais Martinez Authenticated and [facility]
--- NOTE | 2022-04-15 12:49 | CT_ITS ---
FINAL REPORT CLINICAL HISTORY: fall COMPARISON: 10/08/2020 FINDINGS: Axial images of the head were obtained without contrast. Coronal reformatted images were also obtained.This study was performed with techniques to keep radiation doses as low as reasonably achievable (ALARA). Individualized dose reduction techniques using automated exposure control or adjustment of mA and/or kV according to the patient's size were employed. There is no evidence of intracranial hemorrhage or mass. The ventricular size is within normal limits. There is no evidence of shift of the midline structures. No abnormal extra axial fluid collection is identified. No skull abnormality is seen on the bone window images. There is mild mucosal thickening in the right maxillary sinus. IMPRESSION: No acute intracranial abnormality. Reviewed, Interpreted and Dictated by Vernon Yates III, MD Transcribed by Anais Martinez Authenticated and . [facility]
--- NOTE | 2022-04-15 12:49 | XR_ITS ---
FINAL REPORT CLINICAL HISTORY: fall FINDINGS: Left elbow Three views were obtained. There is a subtle lucency at the lateral radial head worrisome for a nondisplaced fracture. There is posterior soft tissue swelling. IMPRESSION: Findings worrisome for a radial head fracture. Reviewed, Interpreted and Dictated by Vernon Yates III, MD Transcribed by Anais Martinez Authenticated and [facility]
--- NOTE | 2022-04-15 12:49 | CT_ITS ---
FINAL REPORT CLINICAL HISTORY: fall FINDINGS: Axial imaging of the lumbar spine was obtained without contrast. Sagittal and coronal reformatted images were also obtained and reviewed.This study was performed with techniques to keep radiation doses as low as reasonably achievable (ALARA). Individualized dose reduction techniques using automated exposure control or adjustment of mA and/or kV according to the patient's size were employed. There is no fracture. There are mild degenerative changes. There are multilevel annular bulges with mild neural foraminal narrowing at L4-5. IMPRESSION: Multilevel degenerative change without acute bony abnormality. Reviewed, Interpreted and Dictated by Vernon Yates III, MD Transcribed by Anais Martinez Authenticated and [facility]
--- NOTE | 2022-04-15 12:51 | HMH.EDGENADL ---
ED Disposition Clinical Impression: Avascular necrosis, Radial head fracture Disposition: Home, Self-Care Condition on Discharge: Good Instructions: DI for Elbow Fracture Additional Instructions: At this time was felt you are safe to be discharged home. Please take your medication as prescribed. Please call and schedule an appointment with orthopedics with Dr. Lawson to be seen by this Wednesday. Prescriptions: methocarbamoL [Methocarbamol 500mg Tablet] 500 mg PO QID PRN #20 tab PRN Reason: Muscle Spasm Transmission Status: Received by [email or web address] Oxycodone HCl [Oxycodone 5mg tab (IR)] 5 mg PO Q8H PRN #6 tab PRN Reason: Severe Pain Transmission Status: Received by [facility] Referrals: Anshul Stephen MD [Primary Care Provider] - Sanford Lawson JR, MD [Physician] - - Critical Care Critical Care Time: No Attestation: On , the high probability of a clinically significant, sudden or life threatening deterioration of the following system(s) required my full and direct attention, intervention and personal management. The time I documented below is in addition to time spent performing reported procedures but includes the following listed in this critical care notation. Medical Decision Making - Efren Inquiry Pt receiving controlled substance: Yes Efren was queried for this patient: Yes Risks and benefits of using a controlled substance: were not discussed with pt by me Vital Signs: 04/15/22 12:36 04/15/22 13:00 04/15/22 13:42 Temperature 98.7 F Temperature Source Oral Pulse Rate 86 86 Pulse Rate [Radial] 88 Respiratory Rate 16 18 18 Blood Pressure 155/96 H 142/71 H Blood Pressure [Right Arm] 148/87 H Blood Pressure Mean 115 121 Blood Pressure Mean [Right Arm] 107 Blood Pressure Position [Right Arm] Sitting 02 Sat by Pulse Oximetry 97 96 96 Oxygen Delivery Method Room Air 04/15/22 14:02 04/15/22 14:31 04/15/22 15:01 Temperature Temperature Source Pulse Rate 82 72 77 Pulse Rate [Radial] Respiratory Rate 18 18 18 Blood Pressure 198/107 H 155/100 H 134/88 Blood Pressure [Right Arm] Blood Pressure Mean 137 129 103 Blood Pressure Mean [Right Arm] Blood Pressure Position [Right Arm] 02 Sat by Pulse Oximetry 97 100 96 Oxygen Delivery Method Orders (Tests/Meds): ED MEDICATIONS Generic Name Dose Route Start Last Admin Trade Name Freq PRN Reason Stop Dose Admin Methocarbamol 500 mg 04/15/22 13:00 04/15/22 12:53 Methocarbamol 500mg Tablet PO 05/15/22 12:59 500 mg BID ROCKY Administration Discontinued Medications Generic Name Dose Route Start Last Admin Trade Name Vera PRN Reason Stop Dose Admin Acetaminophen 1,000 mg 04/15/22 12:50 04/15/22 12:54 Acetaminophen 500mg Tab PO 04/15/22 12:51 1,000 mg ONCE ONE Administration Ketorolac Tromethamine 30 mg 04/15/22 14:52 04/15/22 14:56 Ketorolac 30mg/Ml Vial IM 04/15/22 14:53 30 mg ONCE ONE Administration Oxycodone HCl 10 mg 04/15/22 14:12 04/15/22 14:14 Oxycodone 5mg Immediate Release Tablet PO 04/15/22 14:13 10 mg ONCE ONE Administration Medical Decision Narrative: In summary this 51-year-old female presents emergency department for evaluation of traumatic injuries sustained in a mechanical fall. Patient does not take blood thinners and is hemodynamically stable upon arrival. Differential diagnosis includes intracranial hemorrhage, fracture, musculoskeletal strain. Work-up will be conducted with noncontrasted CT scan of the head, noncontrasted CT of the lumbar spine and sacrum. Plain films of the left elbow be obtained. Initial interventions include Tylenol and Robaxin. Upon repeat evaluation patient continued pain for which oxycodone will be administered. Work-up was reviewed by me, concerning findings for nondisplaced radial head fracture, patient is able to supinate and pronate. CT imaging of the spine and head showed no acute a
--- NOTE | 2022-04-15 13:41 | PC.NURSE ---
pt return from ct continues to c/o pain 06/15
--- NOTE | 2022-04-15 14:08 | PC.NURSE ---
Jessee rounding on pt at this time.
--- NOTE | 2022-04-15 14:23 | PC.NURSE ---
rounded on pt to see if they needed anything. pt stated that they had no needs at this time.
--- NOTE | 2022-04-15 14:44 | PC.NURSE ---
checked on pt at this time, additional warm blanket given. Notified ER MD pt reports still having pain in elbow and lower back
--- NOTE | 2022-04-15 14:47 | PC.NURSE ---
TABBY PINEDA at going over test results with pt.
--- NOTE | 2022-04-15 14:49 | PC.NURSE ---
DR RENETTA CHU
--- NOTE | 2022-04-15 14:50 | PC.NURSE ---
TABBY PINEDA speaking with Dr. Lawson who is car inspection and repair manager for ortho
--- NOTE | 2022-04-15 14:59 | PC.NURSE ---
pt medicated per NOV for pain julia farmer at applying splint
--- NOTE | 2022-04-15 15:10 | PC.NURSE ---
sugar tong splint applied to lt arm sling applied, ice pack given
== END 2022-04-15 15:26 | disposition home or self-care (01) ==
PROVIDERS: Emergency Provider Emergency Medicine; PCP Emergency Medicine
DX: S52.122A Displaced fracture of head of left radius, initial encounter for closed fracture (principal); M87.9 Osteonecrosis, unspecified; W01.0XXA Fall on same level from slipping, tripping and stumbling without subsequent striking against object, initial encounter; Y92.009 Unspecified place in unspecified non-institutional (private) residence as the place of occurrence of the external cause
CPT/HCPCS: 29105; 70450; 72131; 72192; 73070

== ENCOUNTER 2022-04-24 08:02 | Day surgery (SDC) | payer OTHER, SELFPAY ==
[2022-04-24 08:49] VITALS: BP 155/83; PULSE 74; RESP 18; O2SAT 94
[2022-04-24 08:54] VITALS: BP 126/86; PULSE 74; TEMP 36.5; O2SAT 96; BMI 36.6
--- NOTE | 2022-04-24 13:15 | HMH.PMCON ---
Assessment and Plan (1) Lumbar back pain Status: Acute Category: Medical Code(s): M54.50 - Low back pain, unspecified (2) Bilateral sacroiliitis Status: Acute Category: Medical Code(s): M46.1 - Sacroiliitis, not elsewhere classified - Assessment and plan all Dx Assessment and Plan for all problems:: This patient is a pleasant 51-year-old female that comes to our clinic today as initial consultation regarding low back pain that she describes as constant, dull, aching. Patient has difficulty standing from a sitting position. Patient complains the pain increases significantly when walking and or sitting. Patient suffered a fall recently. The patient landed on her backside hitting her head at the same time. The majority of patient's x-rays were negative with the exception of a left nondisplaced proximal radius head fracture. Upon examination she has extreme point tenderness over the bilateral SI joints. Patient denies any bowel or bladder issues. Patient denies any numbness or weakness in the lower extremities. Patient is awake alert Kelf[place] x3. In no acute distress. Flexion-extension lumbar spine somewhat guarded secondary to pain. Deep tendon reflexes upper lower extremities normal. Motor strength upper and lower extremities normal. There is no gross sensory deficit. Gait is normal. Bilateral sacroiliitis. Discussed in detail with the patient regarding treatment options. I am suspicious of bilateral sacroiliitis due to the hard fall on her bottom. Also, the fact she has extreme point tenderness over the bilateral SI joints. I suggest bilateral SI joint injections. She wishes to proceed. HPI - Data of Consult Requesting Physician: Jude Cardona CRNA Primary Care Provider: Anshul Stephen MD - Consult Narrative Reason for consult: Lumbar back pain History of present illness: Ms. Leija is a 51 year old female CC: Jude Cardona CRNA [facility] History Medical History: Reports:: Asthma, Diabetes Mellitus Type 1, Gastroesophageal Reflux Disease(GERD), Hiatal Hernia, Hyperlipidemia, Hypertension, Lung Disease, Migraine Denies:: Cancer, Diabetes Mellitus Type 2, Internal Pacemaker, MRSA, Seizures *Have you ever received a pneumonia vaccine?: Yes *Have you received a flu vaccine this season?: Yes Other Medical History: Reports: Hypothyroidism, Other. Denies: Blood Transfusion Reaction Laterality Cases: Bilateral: Other Other Surgeries: Yes: Angioplasty, Cardiac Catheterization, Cholecystectomy, Colonoscopy, EGD, Hysterectomy-Total, Hysterectomy-Partial, Other. No: Pacemaker Amputation: No Fractures: No - *Social History Smoking Status: Never smoker Alcohol Intake: never Alcohol Intake Frequency:: holidays/special occasions only Substance Use Type: denies use *Occupational Status:: employed Housing: house Household Members: spouse *Travel in the last 8 weeks: None Family Hx:: No significant family history Meds Home Medications Medication Instructions Recorded Confirmed Type Duloxetine HCl 20 mg PO DAILY 04/24/22 04/24/22 History Furosemide [Furosemide 80mg Tab] 80 mg PO POSTTR 04/24/22 04/24/22 History Insulin Aspart [Novolog] 100 unit SQ NEEDED PRN 04/24/22 04/24/22 History Losartan/Hydrochlorothiazide 50 mg PO DAILY 04/24/22 04/24/22 History [Losartan-Hctz 50-12.5 mg Tab] Omeprazole 40 mg PO DAILY 04/24/22 04/24/22 History Pregabalin 75 mg PO DAILY 04/24/22 04/24/22 History Simvastatin 5 mg PO DAILY 04/24/22 04/24/22 History Ubrogepant [Ubrelvy] 100 mg PO DAILY 04/24/22 04/24/22 History Vibegron [Gemtesa] 75 mg PO DAILY 04/24/22 04/24/22 History Zolpidem Tartrate 10 mg PO DAILY PRN 04/24/22 04/24/22 History Allergies Allergy/AdvReac Type Severity Reaction Status Date / Time metformin AdvReac Intermediate abd Verified 03/16/22 11:54 pain,diarrhea Objective Vital signs: Temp Pulse Resp BP Pulse Ox 97.7 F 74 18 126/86 96 04/24/22 08:54 04/24/22 08:54 0
--- NOTE | 2022-04-24 13:19 | P.PCN_ITS ---
- Procedure Date: 04/24/22 Time: 08:30 Anesthesiologist:: Jude Cardona CRNA Complications:: None Pre-procedure Diagnosis:: Bilateral sacroiliitis. Post-procedure Diagnosis:: Same Indications for Procedure:: This patient is a pleasant 51-year-old female that suffered a fall recently on her bottom. She has extreme low back pain off the midline bilaterally. She has extreme point tenderness over the bilateral SI joints. She rates her pain 8/10. Procedure Details:: Procedure: Bilateral sacroiliac joint injections under fluoroscopy Informed consent was obtained and the risks and benefits of the procedure were explained to the patient.~ The patient was taken to the procedure room and noninvasive monitors were placed including a noninvasive blood pressure cuff and pulse oximeter.~ The patient was placed prone on the procedure table. Both hips were cleansed using Betadine as a cleansing solution. C-arm fluoroscopy was used to view the right sacroiliac joint.~ The skin and subcutaneous tissues were anesthetized using lidocaine 1.5% and a 25-gauge needle.~ After this, a 22-gauge spinal needle was inserted under fluoroscopic guidance into the inferior aspect of the right sacroiliac joint.~ Omnipaque dye was injected and good spread was seen throughout the joint.~ After this, approximately 5 mL of bupivacaine, 0.25% and Depo-Medrol, 40 mg was incrementally injected into the right sacroiliac joint. We then moved to the left sacroiliac joint.~ The skin and subcutaneous tissues were anesthetized using lidocaine 1.5% and a 25-gauge needle.~ After this, a 22- gauge spinal needle was inserted under fluoroscopic guidance into the inferior aspect of the left sacroiliac joint.~ Omnipaque dye was injected and good spread was seen throughout the joint. After this, approximately 5 mL of bupivacaine, 0.25% and Depo-Medrol, 40 mg was incrementally injected into the left sacroiliac joint.~ The patient tolerated the procedure well with no complications. The patient was observed in the Pain Clinic and then was discharged home neurologically intact. Plan and Disposition:: Patient was discharged without incident. She reports significant improvement terms of her lumbar back pain as well as posterior hip pain bilaterally.
== END 2022-04-24 08:50 | disposition home or self-care (01) ==
LOC: SC.PAIN 04-28 11:41
PROVIDERS: PCP Emergency Medicine; Visit Provider Nurse Anesthetist, Certified Registered
DX: M46.1 Sacroiliitis, not elsewhere classified (principal); M54.50 Low back pain, unspecified
CPT/HCPCS: 27096; G0260; J1040

== ENCOUNTER → 2022-04-27 11:18 | Outpatient (CLI) | payer OTHER, SELFPAY ==
[2022-04-27 12:48] LABS: Alanine Aminotransferase 38 U/L (12-78); Albumin Level 4.4 g/dl (3.5-5.0); Albumin/Globulin Ratio 1.5 (1.1-1.8); Alkaline Phosphatase 195 U/L (38-126); Anion Gap 14.6 mEq/L (5-15); Aspartate Amino Transferase 40 U/L (14-36); Bilirubin,Total 0.4 mg/dl (0.2-1.3); Blood Urea Nitrogen 20 mg/dl (7-17); Calcium 8.8 mg/dl (8.4-10.2); Carbon Dioxide 31 mmol/L (22.0-30.0); Chloride 93 mmol/L (98-107); Estimated Glomerular Filt Rate 67 ml/min (>60); GFR (African American) 81 ML/MIN (>60); Glucose 390 mg/dl (74-100); Potassium 3.6 mmoL/L (3.5-5.1); Sodium 135 mmol/L (136-145); Total Protein,Serum 7.4 g/dl (6.3-8.2)
[2022-04-27 13:04] LABS: Hemoglobin A1C 7.9 % (4.0-6.0)
[2022-04-28 10:14] LABS: C-Peptide 11.5 ng/mL (1.1-4.4)
== END ==
PROVIDERS: PCP Emergency Medicine; Visit Provider Emergency Medicine
DX: E11.9 Type 2 diabetes mellitus without complications (principal); E66.9 Obesity, unspecified; Z79.4 Long term (current) use of insulin; Z68.36 Body mass index [BMI] 36.0-36.9, adult
CPT/HCPCS: 36415; 80053; 83036; 84681

== ENCOUNTER → 2022-05-05 08:26 | Outpatient (CLI) | payer OTHER, SELFPAY ==
--- NOTE | 2022-05-05 08:26 | US_ITS ---
FINAL REPORT CLINICAL HISTORY: liver enzymes elevated FINDINGS: Sonographic images of the abdomen were obtained. The liver has increased echogenicity. The gallbladder has an unremarkable appearance without evidence of gallstones. There is no evidence of biliary ductal dilatation. The common hepatic duct measures 4 mm, which is within normal limits. Limited images of the pancreas are unremarkable. The spleen is somewhat enlarged at 13.6 cm. The right kidney measures 10.7 cm in length. The left kidney measures 10.1 cm in length. There is normal renal echogenicity. There is no evidence of hydronephrosis. The aorta has an unremarkable appearance. Limited images of the inferior vena cava are unremarkable. IMPRESSION: Fatty liver. Borderline splenomegaly. Reviewed, Interpreted and Dictated by Vernon Yates III, MD Transcribed by Jalil Burns Authenticated and [facility]
== END ==
PROVIDERS: PCP Emergency Medicine; Visit Provider Emergency Medicine
DX: R74.8 Abnormal levels of other serum enzymes (principal)
CPT/HCPCS: 76700

== ENCOUNTER → 2022-05-14 14:23 | Outpatient (CLI) | payer OTHER, SELFPAY ==
--- NOTE | 2022-05-14 14:28 | XR_ITS ---
FINAL REPORT CLINICAL HISTORY: elbow pain FINDINGS: LEFT ELBOW 2 views were obtained. There is no acute fracture or dislocation. There are mild degenerative changes. There is no soft tissue abnormality. IMPRESSION: Mild degenerative change with no acute bony abnormality. Reviewed, Interpreted and Dictated by Vernon Yates III, MD Transcribed by Dorothy Guillen Authenticated and [facility]
== END ==
PROVIDERS: PCP Emergency Medicine; Visit Provider Orthopaedic Surgery
DX: M25.522 Pain in left elbow (principal)
CPT/HCPCS: 73080

== ENCOUNTER → 2022-06-29 08:07 | Outpatient (CLI) | payer OTHER, SELFPAY ==
--- NOTE | 2022-06-29 08:07 | MM_ITS ---
PROCEDURE INFORMATION: Exam: MG Bilateral Screening 3D Mammography Exam date and time: 06/29/2022 7:58 AM Age: 52 years old Clinical indication: Screening. A paternal aunt had breast cancer. TECHNIQUE: Imaging protocol: Bilateral Screening tomosynthesis and 2D mammography including computer-aided detection (CAD) when performed. COMPARISON: 1. MG MM DIG SCREENING MAMM BI W/CAD 05/23/2021 8:48 AM 2. MG MM DIG SCREENING MAMM BI W/CAD 05/21/2020 8:21 AM 3. MG MM DIG SCREENING MAMM BI W/CAD 05/18/2019 9:28 AM 4. MG SCBI MM Dig screening mamm BI w/CAD 04/14/2018 4:00 PM FINDINGS: MAMMOGRAPHY: Breast composition: The breasts are almost entirely fatty. Mass: None. Architectural distortion: None. Calcifications: No suspicious calcifications. Asymmetric density: None. Skin thickening: None. Axillary adenopathy: None. IMPRESSION: No mammographic evidence of malignancy. Annual screening is recommended unless otherwise clinically indicated. ASSESSMENT: BI-RADS Category 1: Negative
== END ==
PROVIDERS: PCP Emergency Medicine; Visit Provider Nurse Practitioner Obstetrics & Gynecology
DX: Z12.31 Encounter for screening mammogram for malignant neoplasm of breast (principal)
CPT/HCPCS: 77063; 77067

== ENCOUNTER → 2022-07-17 13:22 | Outpatient (CLI) | payer OTHER, SELFPAY ==
--- NOTE | 2022-07-17 13:40 | US_ITS ---
FINAL REPORT CLINICAL HISTORY: DM,HLD,EX SMOKER,DECREASED SENESATION,REST PAIN FINDINGS: BILATERAL ANKLE BRACHIAL INDICES Pressure indices are as follows are: RIGHT LOWER EXTREMITY Ankle brachial pressure index: 1.2 Toe brachial pressure index: 1.05 COMMENTS: Within normal limits LEFT LOWER EXTREMITY Ankle brachial pressure index: 1.2 Toe brachial pressure index: 1.17 COMMENTS: Within normal limits IMPRESSION: No evidence of significant obstructive peripheral vascular disease of the lower extremities. Reviewed, Interpreted and Dictated by Robert Burciaga MD Transcribed by Adia Morales Authenticated and [facility]
== END ==
PROVIDERS: PCP Emergency Medicine; Visit Provider Podiatrist
DX: R20.8 Other disturbances of skin sensation (principal)
CPT/HCPCS: 93923

== ENCOUNTER 2022-07-21 15:08 | Emergency (ER) | payer OTHER, SELFPAY ==
[2022-07-21 15:14] VITALS: BMI 34.7
[2022-07-21 15:24] VITALS: BP 110/72; PULSE 75; RESP 20; TEMP 36.8; O2SAT 96; BMI 34.7
[2022-07-21 15:31] LABS: Microscopic, Urine URINE MICROSCOPIC (MICROSCOPIC)
--- NOTE | 2022-07-21 15:35 | HMH.EDGENADL ---
Discharge Plan Disposition Patient Disposition: Home, Self-Care Condition: Good Prescriptions Prescriptions: New cephalexin 500 mg capsule 500 mg PO Q6H Qty: 40 0RF potassium chloride 20 mEq tablet extended release 20 meq PO BID Qty: 14 0RF promethazine 12.5 mg tablet 12.5 mg PO TID PRN (Reason: allergy symptoms) Qty: 10 0RF Rx Instructions: 3 doses during day; last dose no later than 4 hr before bedtime No Action hydrocodone-acetaminophen 5-325 mg tablet 1 tab PO BID Qty: 60 0RF Jardiance 10 mg tablet 10 mg PO DAILY Qty: 90 3RF ropinirole 1 mg tablet 1 mg PO HS Qty: 30 2RF Rx Instructions: administer 1-3 hours before bedtime Ozempic 1 mg/dose (4 mg/3 mL) pen injector 1 mg SQ WEEKLY Qty: 3 2RF zolpidem 10 mg tablet 10 mg PO DAILY PRN (Reason: .) Qty: 30 2RF ondansetron 8 mg tablet,disintegrating 8 mg PO Q8H PRN (Reason: nausea and vomiting) Qty: 20 0RF phentermine [Adipex-P] 37.5 mg tablet 37.5 mg PO DAILY Qty: 30 0RF Rx Instructions: must administer 30 minutes before or 1-2 hours after breakfast glipizide [Glucotrol XL] 5 mg tablet extended release 24hr 5 mg PO BID 90 Days Qty: 180 3RF fluconazole [Diflucan] 150 mg tablet 150 mg PO DAILY Qty: 7 0RF clindamycin HCl 300 mg capsule 300 mg PO TID Qty: 30 0RF (DME) Dexcom G6 Transmitter Device See Rx Instructions .ROUTE .COMPLEX Qty: 1 3RF Dose Instruction: CHANGE EVERY 90 DAYS DIRECTED Rx Instructions: CHANGE EVERY 90 DAYS DIRECTED omeprazole 40 MG capsule,delayed release(DR/EC) 40 mg PO DAILY furosemide 80 MG tablet 80 mg PO POSTTR simvastatin 5 MG tablet 5 mg PO DAILY insulin aspart U-100 100 UNIT/ML solution 100 unit SQ NEEDED PRN (Reason: .) losartan-hydrochlorothiazide 1 EACH tablet 50 mg PO DAILY duloxetine 20 MG capsule,delayed release(DR/EC) 20 mg PO DAILY pregabalin 75 MG capsule 75 mg PO DAILY ubrogepant 100 MG tablet 100 mg PO DAILY vibegron 75 MG tablet 75 mg PO DAILY Activity Restrictions/Add. Instructions Additional Instructions/Restrictions: Have your potassium level rechecked this week by primary care provider. Rest. Drink plenty of fluids. Clinical Impressions Clinical Impression: Acute lower urinary tract infection, Acute hypokalemia Stand Alone Forms Stand Alone Forms: Work/School Release Instructions Patient Instructions: DI for Urinary Tract Infection (UTI), DI for Urinary Tract Infection in Children Discharge ED Provider: Joseluis Vang General Adult HPI General Chief complaint: Urogenital-Female Stated complaint: L FLANK PAIN Time Seen by Provider: 07/21/22 15:27 Mode of Arrival: Ambulatory Source of Information: Patient Limitations: No Limitations Description of Symptoms (Recalled from ER Triage Doc. by RN): pt to ed c/o pelvic pain and pressure and bilateral flank pain. pt reports she has noticed small blood clots after urinating. pt reports some urinary urgency but denies burning with urination. pt states a hx of hysterectomy. History of Present Illness HPI narrative: Patient presents complaining of hematuria and dysuria as well as suprapubic discomfort that began last night. She describes symptoms as moderate without exacerbating alleviating factors. She denies fever, vomiting or diarrhea although she has had some nausea. Related Data Home Medications Medication Instructions Recorded Confirmed duloxetine 20 mg capsule,delayed 20 mg PO DAILY . 04/24/22 07/20/22 release furosemide 80 mg tablet 80 mg PO POSTTR . 04/24/22 07/20/22 insulin aspart U-100 100 unit/mL 100 unit SQ NEEDED PRN . 04/24/22 07/20/22 subcutaneous solution losartan 50 mg-hydrochlorothiazide 50 mg PO DAILY . 04/24/22 07/20/22 12.5 mg tablet omeprazole 40 mg capsule,delayed 40 mg PO DAILY . 04/24/22 07/20/22 release pregabalin 75 mg capsule 75 mg PO FRANCIE
[2022-07-21 15:43] LABS: Appearance,Urine CLOUDY (Clear); Bilirubin,Urine Negative (Negative); Blood, Urine 3+ (Negative); Color,Urine YELLOW (Yellow); Glucose,Urine (UA) 3+ (Negative); Ketones,Urine TRACE (Negative); Leukocyte Esterase,Urine 1+ (Negative); Nitrate,Urine POSITIVE (Negative); Protein,Urine 1+ (Negative); Specific Gravity, Urine 1.025 (1.005-1.030); Urobilinogen,Urine 0.2 EU/dl (0.2)
[2022-07-21 16:00] VITALS: BP 134/81; PULSE 68; O2SAT 96
[2022-07-21 16:25] LABS: Basophils # 0.1 K/mm3 (0-0.2); Eosinophils # 0.1 K/mm3 (0.0-0.4); Eosinophils % 1.2 % (0.1-12.0); Hematocrit 39.4 % (37.0-47.0); Hemoglobin 13.2 g/dL (12.2-16.2); Lymphocytes # 3.1 K/mm3 (0.7-4.5); Lymphocytes % 31.5 % (10-50); Mean Corpuscular HGB Conc 33.6 g/dL (31.8-35.4); Mean Corpuscular Hemoglobin 24.7 pg (27.0-31.2); Mean Corpuscular Volume 73.7 fl (81-99); Mean Platelet Volume 8.3 fl (7.4-10.4); Monocytes # 0.4 K/mm3 (0.1-1.0); Monocytes % 4.5 % (1.7-9.3); Neutrophils % 61.9 % (37.0-80.0); Platelet Count 233 K/mm3 (142-424); Red Blood Count 5.35 M/mm3 (4.20-5.40); Red Cell Distribution Width 17.2 % (11.5-17.5); White Blood Count 9.7 K/mm3 (4.8-10.8)
[2022-07-21 16:31] VITALS: BP 158/58; PULSE 68; O2SAT 94
[2022-07-21 16:40] LABS: Chloride 94 mmol/L (98-107); Sodium 139 mmol/L (136-145)
[2022-07-21 16:42] LABS: Blood Urea Nitrogen 14 mg/dl (7-17); Creatinine Clearance Estimated 126 mL/min (50-200); Estimated Glomerular Filt Rate 76 ml/min (>60); GFR (African American) 92 ML/MIN (>60)
[2022-07-21 16:43] LABS: Alanine Aminotransferase 27 U/L (12-78); Albumin Level 4.1 g/dl (3.5-5.0); Albumin/Globulin Ratio 1.4 (1.1-1.8); Alkaline Phosphatase 141 U/L (38-126); Anion Gap 12.7 mEq/L (5-15); Aspartate Amino Transferase 37 U/L (14-36); Bilirubin,Total 0.6 mg/dl (0.2-1.3); Calcium 9.2 mg/dl (8.4-10.2); Carbon Dioxide 35 mmol/L (22.0-30.0); Glucose 120 mg/dl (74-100); Total Protein,Serum 7.1 g/dl (6.3-8.2)
[2022-07-21 16:46] LABS: Potassium 2.7 mmoL/L (3.5-5.1)
[2022-07-21 17:01] VITALS: BP 166/65; PULSE 68; O2SAT 97
[2022-07-21 17:31] VITALS: BP 116/63; PULSE 69; RESP 20; O2SAT 93
[2022-07-21 17:32] LABS: Bacteria,Urine Trace /lpf; WBC,Urine TNTC #/hpf (0-3)
[2022-07-21 19:34] VITALS: BP 129/63; PULSE 80; RESP 16; TEMP 36.8; O2SAT 98
== END 2022-07-21 19:35 | disposition home or self-care (01) ==
PROVIDERS: Emergency Provider Emergency Medicine; PCP Emergency Medicine
DX: E87.6 Hypokalemia (principal); N39.0 Urinary tract infection, site not specified; Z79.4 Long term (current) use of insulin; Z79.899 Other long term (current) drug therapy; Z88.8 Allergy status to other drugs, medicaments and biological substances; E11.9 Type 2 diabetes mellitus without complications; M79.7 Fibromyalgia; G43.909 Migraine, unspecified, not intractable, without status migrainosus; G62.9 Polyneuropathy, unspecified; E66.9 Obesity, unspecified; Z68.34 Body mass index [BMI] 34.0-34.9, adult
CPT/HCPCS: 80053; 81001; 85025; 87086; 87088; 87186; 96365; 96367; 96375; 99284; J0696; J2405

== ENCOUNTER 2022-07-24 00:32 | Emergency (ER) | payer OTHER, SELFPAY ==
[2022-07-24 00:34] VITALS: BP 132/83; PULSE 71; RESP 16; TEMP 36.6; O2SAT 98; BMI 34.7
--- NOTE | 2022-07-24 00:44 | CT_ITS ---
PROCEDURE INFORMATION: Exam: CT Abdomen And Pelvis With Contrast Exam date and time: 07/24/2022 1:16 AM Age: 52 years old Clinical indication: Abdominal pain; Localized; Left lower quadrant (llq); Prior surgery; Surgery type: Cholecystectomy, bladder sling; Additional info: Llq pain TECHNIQUE: Imaging protocol: Computed tomography of the abdomen and pelvis with contrast. Radiation optimization: All CT scans at this facility use at least one of these dose optimization techniques: automated exposure control; mA and/or kV adjustment per patient size (includes targeted exams where dose is matched to clinical indication); or iterative reconstruction. Contrast material: ISOVUE; Contrast volume: 75 ml; Contrast route: IV; COMPARISON: CT BONY PELVIS 04/15/2022 1:22 PM FINDINGS: Liver: Normal. No mass. Gallbladder and bile ducts: Cholecystectomy. Pancreas: Normal. No ductal dilation. Spleen: Normal. No splenomegaly. Adrenal glands: Normal. No mass. Kidneys and ureters: Normal. No hydronephrosis. Stomach and bowel: Constipation. No colitis. No small bowel obstruction. Appendix: No evidence of appendicitis. Intraperitoneal space: Unremarkable. No free air. No significant fluid collection. Vasculature: Unremarkable. No abdominal aortic aneurysm. Lymph nodes: Unremarkable. No enlarged lymph nodes. Urinary bladder: Unremarkable as visualized. Reproductive: Hysterectomy. Bones/joints: Unremarkable. No acute fracture. Soft tissues: Unremarkable. IMPRESSION: No acute findings.
[2022-07-24 00:49] LABS: Microscopic, Urine URINE MICROSCOPIC (MICROSCOPIC)
[2022-07-24 00:51] LABS: Appearance,Urine CLEAR (Clear); Bilirubin,Urine Negative (Negative); Blood, Urine Negative (Negative); Color,Urine YELLOW (Yellow); Glucose,Urine (UA) 1+ (Negative); Ketones,Urine Negative (Negative); Leukocyte Esterase,Urine Negative (Negative); Nitrate,Urine Negative (Negative); PH,Urine 6.5 (5.0-8.5); Protein,Urine Negative (Negative); Specific Gravity, Urine <= 1.005 (1.005-1.030); Urobilinogen,Urine 0.2 EU/dl (0.2)
--- NOTE | 2022-07-24 00:57 | HMH.EDABDPAI ---
Discharge Plan Disposition Patient Disposition: Home, Self-Care Chief Complaint: Abdominal Pain Prescriptions Prescriptions: No Action hydrocodone-acetaminophen 5-325 mg tablet 1 tab PO BID Qty: 60 0RF Jardiance 10 mg tablet 10 mg PO DAILY Qty: 90 3RF ropinirole 1 mg tablet 1 mg PO HS Qty: 30 2RF Rx Instructions: administer 1-3 hours before bedtime Ozempic 1 mg/dose (4 mg/3 mL) pen injector 1 mg SQ WEEKLY Qty: 3 2RF zolpidem 10 mg tablet 10 mg PO DAILY PRN (Reason: .) Qty: 30 2RF ondansetron 8 mg tablet,disintegrating 8 mg PO Q8H PRN (Reason: nausea and vomiting) Qty: 20 0RF phentermine [Adipex-P] 37.5 mg tablet 37.5 mg PO DAILY Qty: 30 0RF Rx Instructions: must administer 30 minutes before or 1-2 hours after breakfast glipizide [Glucotrol XL] 5 mg tablet extended release 24hr 5 mg PO BID 90 Days Qty: 180 3RF fluconazole [Diflucan] 150 mg tablet 150 mg PO DAILY Qty: 7 0RF clindamycin HCl 300 mg capsule 300 mg PO TID Qty: 30 0RF (DME) Dexcom G6 Transmitter Device See Rx Instructions .ROUTE .COMPLEX Qty: 1 3RF Dose Instruction: CHANGE EVERY 90 DAYS DIRECTED Rx Instructions: CHANGE EVERY 90 DAYS DIRECTED (DME) Dexcom G6 Sensor Device See Rx Instructions .Route Qty: 3 2RF Rx Instructions: As directed omeprazole 40 MG capsule,delayed release(DR/EC) 40 mg PO DAILY furosemide 80 MG tablet 80 mg PO POSTTR simvastatin 5 MG tablet 5 mg PO DAILY insulin aspart U-100 100 UNIT/ML solution 100 unit SQ NEEDED PRN (Reason: .) losartan-hydrochlorothiazide 1 EACH tablet 50 mg PO DAILY duloxetine 20 MG capsule,delayed release(DR/EC) 20 mg PO DAILY pregabalin 75 MG capsule 75 mg PO DAILY ubrogepant 100 MG tablet 100 mg PO DAILY vibegron 75 MG tablet 75 mg PO DAILY cephalexin 500 mg capsule 500 mg PO Q6H Qty: 40 0RF potassium chloride 20 mEq tablet extended release 20 meq PO BID Qty: 14 0RF promethazine 12.5 mg tablet 12.5 mg PO TID PRN (Reason: allergy symptoms) Qty: 10 0RF Rx Instructions: 3 doses during day; last dose no later than 4 hr before bedtime Referrals Follow up/Referrals: Anshul Stephen MD [Primary Care Provider] - See instructions Clinical Impressions Clinical Impression: Acute abdominal pain Instructions Patient Instructions: DI for Acute Abdominal Pain Discharge ED Provider: Anshul Stephen Abdominal Pain HPI General Chief Complaint: Abdominal Pain Stated Complaint: feels bad,pain left side pelvic area,nausea Time Seen by Provider: 07/24/22 00:58 Mode of Arrival: Ambulatory Source of Information: Patient, Spouse and Medical Record Limitations: No Limitations Description of Symptoms (Recalled from ER Triage Doc. by RN): pt states was seen in er a couple of days ag oand diagnosed with UTI. pt c/o LLQ pain radiating to lt flank and pelvic area with n/v History of Present Illness HPI narrative: increased abd pain -to lt flank - on abx for uti complaint: abdominal pain Onset (ago): day(s) Consistency: intermittent Location: LLQ and L flank Severity: severe Quality: sharp Associated symptoms: denies other symptoms Related Data Home Medications Medication Instructions Recorded Confirmed duloxetine 20 mg capsule,delayed 20 mg PO DAILY . 04/24/22 07/20/22 release furosemide 80 mg tablet 80 mg PO POSTTR . 04/24/22 07/20/22 insulin aspart U-100 100 unit/mL 100 unit SQ NEEDED PRN . 04/24/22 07/20/22 subcutaneous solution losartan 50 mg-hydrochlorothiazide 50 mg PO DAILY . 04/24/22 07/20/22 12.5 mg tablet omeprazole 40 mg capsule,delayed 40 mg PO DAILY . 04/24/22 07/20/22 release pregabalin 75 mg capsule 75 mg PO DAILY . 04/24/22 07/20/22 simvastatin 5 mg tablet 5 mg PO DAILY . 04/24/22 07/20/22 ubrogepant 100 mg tablet 100 mg PO DAILY . 04/24/22 07/20/22 vibegron 75 mg tablet 75 mg PO
[2022-07-24 01:00] LABS: Chloride 101 mmol/L (98-107); Potassium 3.6 mmoL/L (3.5-5.1); Sodium 140 mmol/L (136-145)
[2022-07-24 01:02] LABS: Amylase 58 U/L (30-110)
[2022-07-24 01:03] LABS: Acetone, Serum (Rapid) None Detected (None Detect); Alanine Aminotransferase 27 U/L (12-78); Albumin/Globulin Ratio 1.3 (1.1-1.8); Alkaline Phosphatase 124 U/L (38-126); Anion Gap 11.6 mEq/L (5-15); Aspartate Amino Transferase 36 U/L (14-36); Bilirubin,Total 0.5 mg/dl (0.2-1.3); Blood Urea Nitrogen 10 mg/dl (7-17); Calcium 9.1 mg/dl (8.4-10.2); Carbon Dioxide 31 mmol/L (22.0-30.0); Creatinine Clearance Estimated 112 mL/min (50-200); Estimated Glomerular Filt Rate 66 ml/min (>60); GFR (African American) 80 ML/MIN (>60); Glucose 111 mg/dl (74-100); Lipase 120 U/L (23-300)
[2022-07-24 01:04] LABS: Basophils # 0.1 K/mm3 (0-0.2); Basophils % 1.1 % (0.1-2.0); Eosinophils # 0.2 K/mm3 (0.0-0.4); Eosinophils % 1.9 % (0.1-12.0); Hematocrit 39.3 % (37.0-47.0); Hemoglobin 12.8 g/dL (12.2-16.2); Lymphocytes % 38.5 % (10-50); Mean Corpuscular HGB Conc 32.4 g/dL (31.8-35.4); Mean Corpuscular Hemoglobin 24.1 pg (27.0-31.2); Mean Corpuscular Volume 74.4 fl (81-99); Mean Platelet Volume 8.2 fl (7.4-10.4); Monocytes # 0.5 K/mm3 (0.1-1.0); Monocytes % 5.9 % (1.7-9.3); Neutrophils # 4.2 K/mm3 (1.8-7.8); Neutrophils % 52.7 % (37.0-80.0); Platelet Count 229 K/mm3 (142-424); Red Blood Count 5.29 M/mm3 (4.20-5.40); Red Cell Distribution Width 17.1 % (11.5-17.5); White Blood Count 7.9 K/mm3 (4.8-10.8)
[2022-07-24 01:11] LABS: Bacteria,Urine 1+ /lpf
[2022-07-24 01:12] LABS: Lactic Acid 0.8 mmol/L (0.7-2.1)
[2022-07-24 02:50] VITALS: BP 129/80; PULSE 80; RESP 18; TEMP 36.7; O2SAT 98
--- NOTE | 2022-07-24 02:51 | PC.NURSE ---
Rechecked pt condition. No needs or complaints voiced.
--- NOTE | 2022-07-24 04:10 | PC.NURSE ---
Rechecked pt condition. Pt advised shes, feeling a little bit better .
== END 2022-07-24 04:40 | disposition home or self-care (01) ==
PROVIDERS: Emergency Provider Emergency Medicine; PCP Emergency Medicine
DX: R10.9 Unspecified abdominal pain (principal); Z79.899 Other long term (current) drug therapy; Z79.4 Long term (current) use of insulin; Z88.8 Allergy status to other drugs, medicaments and biological substances; E11.9 Type 2 diabetes mellitus without complications; G43.909 Migraine, unspecified, not intractable, without status migrainosus; M79.7 Fibromyalgia; G62.9 Polyneuropathy, unspecified; E66.9 Obesity, unspecified; Z68.34 Body mass index [BMI] 34.0-34.9, adult
CPT/HCPCS: 74177; 80053; 81001; 82009; 82150; 83605; 83690; 85025; 87040; 96365; 96375; 96376; 99285; J2405; Q9967

== ENCOUNTER 2022-08-05 08:42 | Outpatient (CLI) | payer OTHER, SELFPAY ==
[2022-08-05 08:59] VITALS: BMI 34.7
== END 2022-08-05 09:10 | disposition home or self-care (01) ==
LOC: COVID.OUT 08:43
PROVIDERS: PCP Emergency Medicine; Visit Provider Emergency Medicine
DX: L60.0 Ingrowing nail (principal)
CPT/HCPCS: J0696

== ENCOUNTER 2022-08-25 08:21 | Day surgery (SDC) | payer OTHER, SELFPAY ==
[2022-08-25 08:49] VITALS: BP 134/85; PULSE 84; RESP 18; TEMP 36.6; O2SAT 99; BMI 34.7
[2022-08-25 09:09] VITALS: BP 139/92; PULSE 80; RESP 18; O2SAT 97
[2022-08-25 09:20] VITALS: BP 134/85; PULSE 85; RESP 20
--- NOTE | 2022-08-25 09:41 | P.PCN_ITS ---
Procedure Date: 08/25/22 Time: 09:30 Anesthesiologist:: Jude Cardona CRNA Complications:: None Pre-procedure Diagnosis:: Bilateral sacroiliitis Post-procedure Diagnosis:: Same Indications for Procedure:: Very pleasant 52-year-old female comes to clinic for bilateral sacroiliac joint injections. Patient is had this in the past with significant improvement. She rates her pain today 7/10. She has extreme point tenderness over the bilateral sacroiliac joints. Procedure Details:: Procedure: Bilateral sacroiliac joint injections under fluoroscopy Informed consent was obtained and the risks and benefits of the procedure were explained to the patient.~ The patient was taken to the procedure room and noninvasive monitors were placed including a noninvasive blood pressure cuff and pulse oximeter.~ The patient was placed prone on the procedure table. Both hips were cleansed using Betadine as a cleansing solution. C-arm fluoroscopy was used to view the right sacroiliac joint.~ The skin and subcutaneous tissues were anesthetized using lidocaine 1.5% and a 25-gauge needle.~ After this, a 22-gauge spinal needle was inserted under fluoroscopic guidance into the inferior aspect of the right sacroiliac joint.~ Omnipaque dye was injected and good spread was seen throughout the joint.~ After this, approximately 5 mL of bupivacaine, 0.25% and Depo-Medrol, 40 mg was incrementally injected into the right sacroiliac joint. We then moved to the left sacroiliac joint.~ The skin and subcutaneous tissues were anesthetized using lidocaine 1.5% and a 25-gauge needle.~ After this, a 22- gauge spinal needle was inserted under fluoroscopic guidance into the inferior aspect of the left sacroiliac joint.~ Omnipaque dye was injected and good spread was seen throughout the joint. After this, approximately 5 mL of bupivacaine, 0.25% and Depo-Medrol, 40 mg was incrementally injected into the left sacroiliac joint.~ The patient tolerated the procedure well with no complications. The patient was observed in the Pain Clinic and then was discharged home neurologically intact. Plan and Disposition:: Patient was discharged without incident
--- NOTE | 2022-08-25 15:59 | XR_ITS ---
FINAL REPORT CLINICAL HISTORY: lateral & 5th digit foot pain COMPARISON: April 14, 2022 FINDINGS: LEFT FOOT Three views of the left foot demonstrate no acute fracture or dislocation. The joint spaces are preserved. The soft tissues are unremarkable. IMPRESSION: No acute bony abnormality. Reviewed, Interpreted and Dictated by Vernon Yates III, MD Transcribed by Dorothy Guillen Authenticated and [facility]
== END 2022-08-25 09:20 | disposition home or self-care (01) ==
PROVIDERS: PCP Emergency Medicine; Visit Provider Nurse Anesthetist, Certified Registered
DX: M46.1 Sacroiliitis, not elsewhere classified (principal); M79.672 Pain in left foot
CPT/HCPCS: 27096; 73630; G0260; J1040

== ENCOUNTER 2022-08-27 08:05 | Inpatient (IN) | payer OTHER, SELFPAY ==
[2022-08-27] VITALS (18 sets, daily range): BP systolic 92–120; BP diastolic 49–86; PULSE 76–117; RESP 17–22; TEMP 36.6–37.3; O2SAT 88–98; BMI 35.9; BMI 25.7; BMI 34.6
--- NOTE | 2022-08-27 08:12 | ECG_ITS ---
APPROVED REPORT Exam: Resting ECG HR:105 bpm ECG Measurements Heart Rate 105 AXES SC 128 P 68 QRSd 100 QRS 108 QT 338 T 22 QTc 399 Conclusion SINUS TACHYCARDIA RIGHT AXIS DEVIATION [QRS AXIS > 100] ABNORMAL ECG UNCONFIRMED REPORT Electronically signed by : Milo Cordoba MD 08/27/2022 20:18:37
--- NOTE | 2022-08-27 08:28 | XR_ITS ---
FINAL REPORT TECHNIQUE: Chest PA & Lateral CLINICAL HISTORY: rt sided pain, SOA, cough COMPARISON: January 2022 FINDINGS: 2 views of the chest were performed. The heart size is normal. The mediastinum is within normal limits. There is right upper lobe opacity. There are no pleural effusions. There is no pneumothorax. The bony thorax appears intact. IMPRESSION: Right upper lobe opacity most worrisome for pneumonia. Mass cannot be excluded. Recommend follow-up radiographs or chest CT. Reviewed, Interpreted and Dictated by Vernon Yates III, MD Transcribed by Jalil Burns Authenticated and [facility]
[2022-08-27 08:41] LABS: Basophils # 0.1 K/mm3 (0-0.2); Basophils % 0.3 % (0.1-2.0); Eosinophils # 0.1 K/mm3 (0.0-0.4); Eosinophils % 0.3 % (0.1-12.0); Hematocrit 43.4 % (37.0-47.0); Hemoglobin 14.2 g/dL (12.2-16.2); Lymphocytes # 1.2 K/mm3 (0.7-4.5); Lymphocytes % 4.7 % (10-50); Mean Corpuscular HGB Conc 32.7 g/dL (31.8-35.4); Mean Corpuscular Hemoglobin 24.7 pg (27.0-31.2); Mean Corpuscular Volume 75.6 fl (81-99); Mean Platelet Volume 8.3 fl (7.4-10.4); Monocytes # 0.7 K/mm3 (0.1-1.0); Monocytes % 2.6 % (1.7-9.3); Neutrophils # 22.5 K/mm3 (1.8-7.8); Neutrophils % 92.1 % (37.0-80.0); Platelet Count 245 K/mm3 (142-424); Red Blood Count 5.74 M/mm3 (4.20-5.40); Red Cell Distribution Width 17.6 % (11.5-17.5); White Blood Count 24.5 K/mm3 (4.8-10.8)
--- NOTE | 2022-08-27 08:41 | PC.NURSE ---
pt in xray
[2022-08-27 08:42] LABS: Chloride 92 mmol/L (98-107)
[2022-08-27 08:43] LABS: Potassium 3.1 mmoL/L (3.5-5.1); Sodium 135 mmol/L (136-145)
[2022-08-27 08:45] LABS: Alanine Aminotransferase 43 U/L (12-78); Albumin Level 4.6 g/dl (3.5-5.0); Albumin/Globulin Ratio 1.3 (1.1-1.8); Alkaline Phosphatase 143 U/L (38-126); Anion Gap 19.1 mEq/L (5-15); Aspartate Amino Transferase 39 U/L (14-36); Blood Urea Nitrogen 19 mg/dl (7-17); Carbon Dioxide 27 mmol/L (22.0-30.0); Creatinine Clearance Estimated 9 mL/min (50-200); Estimated Glomerular Filt Rate 53 ml/min (>60); GFR (African American) 64 ML/MIN (>60); Globulin 3.5 g/dL (1.3-3.2); Total Protein,Serum 8.1 g/dl (6.3-8.2)
[2022-08-27 08:46] LABS: Calcium 9.7 mg/dl (8.4-10.2); Glucose 288 mg/dl (74-100)
[2022-08-27 08:52] LABS: MANUAL DIFFERENTIAL MANUAL DIFFERENTIAL (MANUAL DIFF)
[2022-08-27 09:06] LABS: Troponin I < 0.01 ng/ml (0.00-0.034)
[2022-08-27 09:14] LABS: Coronavirus 19, PCR Not Detected (NotDetected); Influenza A, PCR Not Detected (NotDetected); Influenza B, PCR Not Detected (NotDetected)
[2022-08-27 09:14] LABS: Lymphocytes % 7 % (10-50); Monocytes % 2 % (2-9); Neutrophils % 91 % (42-76); Platelet Estimate Normal; RBC Morphology Normal; Total Cells Counted 100
--- NOTE | 2022-08-27 09:19 | HMH.EDGENADL ---
Discharge Plan Disposition Patient Disposition: Admitted As Inpatient Condition: Fair Prescriptions Prescriptions: No Action meloxicam 7.5 mg tablet 7.5 mg PO DAILY PRN (Reason: .) Label Comments: TAKE ONE TABLET BY MOUTH EVERY DAY NEEDED FOR PAIN --TAKE WITH FOOD-- potassium chloride 20 mEq tablet,ER particles/crystals 20 meq PO BID pramipexole 0.25 mg tablet 0.25 mg PO BID Emgality Pen 120 mg/mL pen injector 120 mg SQ QMONTH (DME) Omnipod Dash Pods (Gen 4) Cartridge See Rx Instructions .ROUTE .MEDSUPPLY Qty: 5 Rx Instructions: As directed Ozempic 1 mg/dose (4 mg/3 mL) pen injector 1 mg SQ WEEKLY Qty: 3 2RF zolpidem 10 mg tablet 10 mg PO DAILY PRN (Reason: .) Qty: 30 2RF ondansetron 8 mg tablet,disintegrating 8 mg PO Q8H PRN (Reason: nausea and vomiting) Qty: 20 0RF pregabalin 75 mg capsule 75 mg PO BID Qty: 60 0RF omeprazole 40 MG capsule,delayed release(DR/EC) 40 mg PO DAILY furosemide 80 MG tablet 80 mg PO POSTTR insulin aspart U-100 100 UNIT/ML solution 100 unit SQ NEEDED PRN (Reason: .) losartan-hydrochlorothiazide 1 EACH tablet 50 mg PO DAILY duloxetine 20 MG capsule,delayed release(DR/EC) 20 mg PO DAILY ubrogepant 100 MG tablet 100 mg PO DAILY vibegron 75 MG tablet 75 mg PO DAILY promethazine 12.5 mg tablet 12.5 mg PO TID PRN (Reason: allergy symptoms) Qty: 10 0RF Rx Instructions: 3 doses during day; last dose no later than 4 hr before bedtime ropinirole 1 mg tablet See Rx Instructions .ROUTE .COMPLEX Rx Instructions: TAKE ONE TABLET BY MOUTH 1 TO 3 HOURS BEFORE BEDTIME glipizide [Glucotrol XL] 5 mg tablet extended release 24hr 5 mg PO BID phentermine [Adipex-P] 37.5 mg tablet 37.5 mg PO DAILY Rx Instructions: must administer 30 minutes before or 1-2 hours after breakfast simvastatin 5 mg tablet See Rx Instructions .ROUTE .COMPLEX Rx Instructions: TAKE ONE TABLET BY MOUTH EVERY DAY mupirocin 2 % ointment 1 applic topical BID (DME) Dexcom G6 Sensor Device See Rx Instructions .ROUTE Rx Instructions: As directed (DME) Dexcom G6 Transmitter Device See Rx Instructions .ROUTE .COMPLEX Rx Instructions: CHANGE EVERY 90 DAYS DIRECTED Jardiance 10 mg tablet 10 mg PO DAILY Referrals Follow up/Referrals: Anshul Stephen MD [Primary Care Provider] - See instructions Clinical Impressions Clinical Impression: Pneumonia of right middle lobe due to infectious organism Discharge ED Provider: Joseluis Borges General Adult HPI General Stated complaint: SOA Time Seen by Provider: 08/27/22 08:10 Mode of Arrival: Ambulatory Source of Information: Patient Limitations: No Limitations History of Present Illness HPI narrative: This is a 52-year-old female presenting with shortness of breath. Patient states that she woke up today on 08/27 feeling mildly short of breath and with a dull, cramping right-sided chest pain. Chest pain did not radiate, not associated with nausea, vomiting, diaphoresis, neurologic deficits, fevers, chills, but she has had cough productive of green sputum. Came to the ED for further evaluation. On arrival complaining of 10 out of 10 right lateral chest wall pain that does not radiate. No interventions have made it better. Related Data Home Medications Medication Instructions Recorded Confirmed duloxetine 20 mg capsule,delayed 20 mg PO DAILY . 04/24/22 08/25/22 release furosemide 80 mg tablet 80 mg PO POSTTR . 04/24/22 08/25/22 insulin aspart U-100 100 unit/mL 100 unit SQ NEEDED PRN . 04/24/22 08/25/22 subcutaneous solution losartan 50 mg-hydrochlorothiazide 50 mg PO DAILY . 04/24/22 08/25/22 12.5 mg tablet omeprazole 40 mg capsule,delayed 40 mg PO DAILY . 04/24/22 08/25/22 release ubrogepant 100 mg tablet 100 mg PO DAILY . 04/24/22 08/25/22
--- NOTE | 2022-08-27 09:38 | PC.NURSE ---
checked on patient, she reports no needs at this time.
--- NOTE | 2022-08-27 09:51 | PC.NURSE ---
Spoke with Osiris regarding patient admission
[2022-08-27 10:01] LABS: Lactic Acid 3.1 mmol/L (0.7-2.1)
--- NOTE | 2022-08-27 10:25 | PC.NURSE ---
checked on pt at this time, pt reports pain has improved a small amount, pain worsens upon movement or cough, call light within reach
--- NOTE | 2022-08-27 10:32 | EXP.PULM.CON ---
History of Present Illness History of present illness: Ms. Leija is a 52-year-old female with history of asthma, insulin-dependent diabetes mellitus presents to the ER complaining of sudden onset sharp right-sided chest pain, subjective fevers, respiratory distress eventually found to have right upper lobe pneumonia needing hospital admission pulmonary was called for further evaluation. [facility] Disclaimer: The information contained in this section may have been updated after the patient was seen, as this information can be updated by other users. 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: em[employer] current occupational exposures/hazards: No caffeine: Yes Review of Systems Constitutional Constitutional: Denies anorexia, Reports body ache(s) and Denies fatigue Eyes Eyes: Denies eye discharge, Denies dry eyes, Denies irritation and Denies itchy eyes ENT Ears, Nose, Mouth, and Throat: Denies epistaxis, Denies facial pain, Denies lip swelling and Denies throat swelling *Cardiovascular Cardiovascular: Reports dyspnea and Reports dyspnea on exertion *Respiratory Respiratory: Reports chest congestion, Reports cough, Reports dyspnea, Reports dyspnea on exertion, Denies excessive phlegm production, Denies hemoptysis, Reports pain on inspiration, Reports pain with cough and Denies wheezing *Gastrointestinal Gastrointestinal: Denies abdominal pain, Denies belching and Denies cramping *Musculoskeletal Musculoskeletal: Reports back pain, Reports myalgias and Reports other (No small joint swelling or Pain) Psychiatric Psychiatric: Denies homicidal ideation and Denies suicidal ideation Endocrine Endocrine: Denies fatigue and Denies heat intolerance Hematologic/Lymphatic Hematologic/Lymphatic: Denies easy bleeding and Denies lymphadenopathy Allergic/Immunologic Allergic/Immunologic: Denies itchy eyes, Denies lip swelling, Denies throat swelling and Denies wheezing Pulmonology Exam Inpatient Vital signs and Labs for Last 24 Hours: Temp Pulse Resp BP Pulse Ox 99.1 F 100 H 18 109/67 L 92 L 08/27/22 08:06 08/27/22 10:00 08/27/22 09:30 08/27/22 10:00 08/27/22 10:00 Laboratory Results - last 24 hr 08/27/22 08:21: WBC 24.5 H*, RBC 5.74 H, Hgb 14.2, Hct 43.4, MCV 75.6 L, MCH 24.7 L, MCHC 32.7, RDW 17.6 H, Plt Count 245, MPV 8.3, Neut % (Auto) 92.1 H, Lymph % (Auto) 4.7 L, [place] % (Auto) 2.6, Eos % (Auto) 0.3, Baso % (Auto) 0.3, Neut # (Auto) 22.5 H, Lymph # (Auto) 1.2, [place] # (Auto) 0.7, Eos # (Auto) 0.1, Baso # (Auto) 0.1, Total Counted 100, Neutrophils % (Manual) 91 H, Lymphocytes % (Manual) 7 L, Monocytes % (Manual) 2, Platelet Estimate Normal, RBC Morphology Normal 08/27/22 08:21: Sodium 135 L, Potassium 3.1 L, Chloride 92 L, Carbon Dioxide 27, Anion Gap 19.1 H, BUN 19 H, Creatinine 1.10 H, Estimated Creat Clear 9, Estimated GFR 53 L, Est GFR ( Amer) 64, Glucose 288 H, Calcium 9.7, Total Bilirubin 2.0 H, AST 39 H, ALT 43, Alkaline Phosphatase 143 H, Troponin I < 0.01, Total Protein 8.1, Albumin 4.6, Globulin 3.5 H, Albumin/Globulin Ratio 1.3 08/27/22 08:21: Lactate 3.1 H 08/27/22 09:03: SARS-CoV-2 (PCR) Not detected, Influenza A Untype (PCR) Not detected, Influenza Type B (PCR) Not detected I & O for Labs for Last 24 Hours: Intake & Ou
--- NOTE | 2022-08-27 10:42 | CT_ITS ---
FINAL REPORT CLINICAL HISTORY: Hypoxia COMPARISON: April 2021 FINDINGS: Axial images were obtained from the lung apex to the mid abdomen by computed tomography. Coronal reformatted images were obtained. This study was performed with techniques to keep radiation doses as low as reasonably achievable, (ALARA). Individualized dose reduction techniques using automated exposure control or adjustment of mA and/or kV according to the patient's size were employed. There is no axillary adenopathy. There is no hilar or mediastinal adenopathy. Heart size is normal. There is no pericardial or pleural effusion. Limited images of the upper abdomen fatty infiltration of the liver. There is evidence of cholecystectomy. The spleen is partially visualized but appears enlarged measuring at least up to 14 cm. There is localized consolidation in the posterior right upper lobe consistent with pneumonia. There is mild bibasilar atelectasis. IMPRESSION: Right upper lobe pneumonia. Fatty liver with splenomegaly. Reviewed, Interpreted and Dictated by Vernon Yates III, MD Transcribed by Jalil Burns Authenticated and [facility]
--- NOTE | 2022-08-27 10:49 | PC.NURSE ---
pt to CT via wheelchair
--- NOTE | 2022-08-27 11:14 | PC.NURSE ---
patient placed on 2L of o2 due to patients oxygen dropping down to 87 while resting.
--- NOTE | 2022-08-27 11:56 | PC.NURSE ---
per brew house supervisor pt has a bed assignment, room needs to be cleaned, current pt was just d/c from that room
--- NOTE | 2022-08-27 12:06 | PC.NURSE ---
pt resting on ed stretcher, and she reports no needs at this time. she is aware that we are waiting for room assignment.
--- NOTE | 2022-08-27 12:49 | PC.NURSE ---
report called to caridad farmer rn on second floor at this time, waiting on admission orders for pt.
[2022-08-27 13:40] LABS: Reflex Lactic Add Lactic Reflex
--- NOTE | 2022-08-27 13:56 | EXP.HP ---
History of Present Illness *Admission Date: 08/27/22 *Reason for visit:: Shortness of breath *History of present illness: Patient is a 52-year-old woman with past medical history of type 2 diabetes, fibromyalgia, migraine headaches, and obesity who came to the ER this morning for somewhat acute onset right posterior/inferior chest pain, cough, and shortness of breath. Patient reports the symptoms began somewhat abruptly around 1 AM, she was hoping symptoms would pass or improve, however since they did not she decided to come to the ER for further evaluation. Chest pain is described as dull, 7 out of 10, does not radiate anywhere and nothing makes it better or worse. [facility] Disclaimer: The information contained in this section may have been updated after the patient was seen, as this information can be updated by other users. 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 current occupational exposures/hazards: No caffeine: Yes Review of Systems Constitutional Constitutional: Reports body ache(s), Reports chills, Reports fatigue, Reports fever(s), Reports headache(s), Denies increased appetite, Denies poor appetite, Reports lethargy and Denies weakness Eyes Eyes: Denies change in vision ENT Ears, Nose, Mouth, and Throat: Reports headache(s), Denies sinus pain and Denies sinus pressure *Cardiovascular Cardiovascular: Reports chest pain at rest, Denies chest pain with activity, Reports dyspnea, Reports dyspnea on exertion, Denies irregular heart rhythm, Denies leg edema and Denies palpitations *Respiratory Respiratory: Reports change in phlegm color, Reports chest congestion, Reports cough, Reports dyspnea, Reports dyspnea on exertion and Denies hemoptysis *Gastrointestinal Gastrointestinal: Denies abdominal pain, Denies change in stool character and Denies hematochezia *Musculoskeletal Musculoskeletal: Denies abnormal gait, Reports arthralgias, Reports back pain and Reports myalgias *Neurologic Neurologic: Denies abnormal gait, Denies abnormal speech, Denies confusion, Reports headache(s), Denies memory loss and Denies weakness Psychiatric Psychiatric: Reports anxiety, Denies confusion, Reports depression and Denies memory loss Endocrine Endocrine: Denies change in body appearance, Reports fatigue, Denies heat intolerance and Denies palpitations Hematologic/Lymphatic Hematologic/Lymphatic: Denies easy bleeding and Denies easy bruising Meds Home Medications and Allergies Home Medications Medication Instructions Recorded Confirmed Type duloxetine 20 mg capsule,delayed 20 mg PO DAILY . 04/24/22 08/25/22 History release furosemide 80 mg tablet 80 mg PO POSTTR . 04/24/22 08/25/22 History insulin aspart U-100 100 unit/mL 100 unit SQ NEEDED PRN . 04/24/22 08/25/22 History subcutaneous solution losartan 50 mg-hydrochlorothiazide 50 mg PO DAILY . 04/24/22 08/25/22 History 12.5 mg tablet omeprazole 40 mg capsule,delayed 40 mg PO DAILY . 04/24/22 08/25/22 History release ubrogepant 100 mg tablet 100 mg PO DAILY . 04/24/22 08/25/22 History vibegron 75 mg tablet 75 mg PO DAILY . 04/24/22 08/25/22 History semaglutide 1 mg/dose (4 mg/3 mL) 1 mg (0.75 mL) SQ WEEKLY diabetes 06/03/22 08/25/22 Rx subcutaneous pen injector (Ozemp
[2022-08-27 14:30] LABS: Lactic Acid Follow Up (RFLX 1) 2.2 mmol/L (0.7-2.1)
--- NOTE | 2022-08-27 15:48 | HMH.PHAINT1 ---
Pharmacy Intervention Comments: home medication list verified using list from pharmacy and pt interview
--- NOTE | 2022-08-27 15:54 | PC.NURSE ---
PT C/O RT CP, NO PAIN MEDS ARE ORDERED AT THIS TIME. B/P HAVE BEEN SOFT, SINDLER AWARE ABOUT BOTH
[2022-08-27 16:12] LABS: Reflex Lactic (2 hrs) Add Lactic Reflex
[2022-08-27 17:10] LABS: POC Glucose,Bedside 165 (70-110)
--- NOTE | 2022-08-27 17:28 | PC.NURSE ---
PT ALERT X2 SINCE RECEIVING PT, C/O PAIN TO RT SIDE OF CHEST, C/O NAUSEA, TREATED PER NOV. PRODUCTIVE COUGH. SPUTUM COLLECTED AND SENT TO LAB. 2L O2 VIA NC, WITH SATS AROUND 96%. WHEEZES AND RHONCHI HEARD T/O. B/P HAVE BEEN SOFT, IS AWARE. CB AND PERSONAL ITEMS WITHIN REACH, NO CONCERNS VOICED AT THIS TIME.
[2022-08-27 18:07] LABS: Lactic Acid Follow up (RFLX 2) 2.2 mmol/L (0.7-2.1)
[2022-08-27 20:03] LABS: POC Glucose,Bedside 191 (70-110)
--- NOTE | 2022-08-27 21:53 | XR_ITS ---
PROCEDURE INFORMATION: Exam: XR Chest Exam date and time: 08/27/2022 10:02 PM Age: 52 years old Clinical indication: Other: Increasing dyspnea; Patient HX: Right lateral chest wall pain, dyspnea. ; Additional info: Increase dyspnea TECHNIQUE: Imaging protocol: Radiologic exam of the chest. Views: 1 view. COMPARISON: CT CHEST WO CON 08/27/2022 10:52 AM FINDINGS: Lungs: Emphysema. Airspace opacity within the lateral posterior basal right upper lobe. Pleural spaces: No pneumothorax. Heart/Mediastinum: No cardiomegaly. Bones/joints: No acute abnormality. IMPRESSION: Airspace opacity within the lateral posterior basal right upper lobe.
[2022-08-28] VITALS (9 sets, daily range): BP systolic 101–126; BP diastolic 56–77; PULSE 76–93; RESP 16–20; TEMP 36.4–37.1; O2SAT 94–97; BMI 35.4; BMI 35.2
--- NOTE | 2022-08-28 04:58 | PC.NURSE ---
multiple calls made to [facility]CGARR[facility] in re: pain meds and migrain meds. several trips made to patient's room to medicate her. chest xray ordered by pulmonology doc which shows worsening pneumonia. IVAB changed to Cefipime and first dose recieved at [facility]. rocephine discontinued. patient appears to be resting well at this time after struggling with pleuricy like chest wall pain for most of the night. 02 at 2lnc.
[2022-08-28 06:03] LABS: POC Glucose,Bedside 205 (70-110)
[2022-08-28 07:34] LABS: Chloride 95 mmol/L (98-107)
[2022-08-28 07:35] LABS: Potassium 3.4 mmoL/L (3.5-5.1); Sodium 133 mmol/L (136-145)
[2022-08-28 07:37] LABS: Alanine Aminotransferase 33 U/L (12-78); Aspartate Amino Transferase 34 U/L (14-36); Blood Urea Nitrogen 21 mg/dl (7-17); Creatinine Clearance Estimated 93 mL/min (50-200); Estimated Glomerular Filt Rate 53 ml/min (>60); GFR (African American) 64 ML/MIN (>60)
[2022-08-28 07:38] LABS: Albumin Level 3.7 g/dl (3.5-5.0); Albumin/Globulin Ratio 1.1 (1.1-1.8); Alkaline Phosphatase 105 U/L (38-126); Anion Gap 14.4 mEq/L (5-15); Calcium 8.8 mg/dl (8.4-10.2); Carbon Dioxide 27 mmol/L (22.0-30.0); Globulin 3.3 g/dL (1.3-3.2); Glucose 210 mg/dl (74-100); Magnesium 2.3 mg/dl (1.6-2.3)
[2022-08-28 07:41] LABS: Basophils # 0.1 K/mm3 (0-0.2); Basophils % 0.3 % (0.1-2.0); Eosinophils # 0.1 K/mm3 (0.0-0.4); Eosinophils % 0.4 % (0.1-12.0); Hematocrit 35.8 % (37.0-47.0); Lymphocytes # 1.7 K/mm3 (0.7-4.5); Lymphocytes % 8.7 % (10-50); Mean Corpuscular HGB Conc 32.6 g/dL (31.8-35.4); Mean Corpuscular Hemoglobin 24.4 pg (27.0-31.2); Mean Corpuscular Volume 74.9 fl (81-99); Mean Platelet Volume 8.7 fl (7.4-10.4); Monocytes # 0.5 K/mm3 (0.1-1.0); Monocytes % 2.7 % (1.7-9.3); Neutrophils # 16.7 K/mm3 (1.8-7.8); Neutrophils % 87.9 % (37.0-80.0); Platelet Count 176 K/mm3 (142-424); Red Blood Count 4.78 M/mm3 (4.20-5.40); Red Cell Distribution Width 17.7 % (11.5-17.5)
[2022-08-28 07:42] LABS: Hemoglobin 11.6 g/dL (12.2-16.2); MANUAL DIFFERENTIAL MANUAL DIFFERENTIAL (MANUAL DIFF)
[2022-08-28 07:52] LABS: Lymphocytes % 12 % (10-50); Monocytes % 4 % (2-9); Neutrophils % 84 % (42-76); Total Cells Counted 100
[2022-08-28 07:53] LABS: Platelet Estimate Normal; RBC Morphology Normal
--- NOTE | 2022-08-28 10:06 | CT_ITS ---
FINAL REPORT TECHNIQUE: After the administration of intravenous contrast, axial images through the chest were performed by computed tomography.This study was performed with techniques to keep radiation doses as low as reasonably achievable, (ALARA). Individualized dose reduction techniques using automated exposure control or adjustment of mA and/or kV according to the patient''s size were employed. CLINICAL HISTORY: shortness of breath with pain, pneumonia COMPARISON: One day prior FINDINGS: There is no axillary adenopathy. There are small mediastinal lymph nodes. The heart size is normal. There is no pericardial or pleural effusion. Limited images of the upper abdomen demonstrate fatty infiltration of the liver and postoperative changes from cholecystectomy. There is worsening consolidation in the posterior right upper lobe consistent with worsening pneumonia. There is mild bibasilar atelectasis. IMPRESSION: Worsening right upper lobe pneumonia. Reviewed, Interpreted and Dictated by Vernon Yates III, MD Transcribed by Jalil Burns Authenticated and [facility]
--- NOTE | 2022-08-28 10:28 | EXP.PN ---
Subjective *Date: 08/28/22 *Time: 10:45 Interval history: Patient continues to report pain in her right mid/lateral back. It is an aching pain, shortness of breath is perhaps better, not worse. Exam Data for Last 24 hours Vital signs and Labs for Last 24 Hours: Temp Pulse Resp BP Pulse Ox 97.6 F 76 16 126/77 97 08/28/22 08:00 08/28/22 08:00 08/28/22 08:00 08/28/22 08:00 08/28/22 08:00 Laboratory Results - last 24 hr 08/27/22 14:10: Lactate 2.2 H 08/27/22 17:03: POC Glucose 165 H 08/27/22 17:28: Lactate 2.2 H 08/27/22 19:52: POC Glucose 191 H 08/28/22 05:39: POC Glucose 205 H 08/28/22 07:15: WBC 19.0 H, RBC 4.78, Hgb 11.6 L D, Hct 35.8 L, MCV 74.9 L, MCH 24.4 L, MCHC 32.6, RDW 17.7 H, Plt Count 176 D, MPV 8.7, Neut % (Auto) 87.9 H, Lymph % (Auto) 8.7 L, [place] % (Auto) 2.7, Eos % (Auto) 0.4, Baso % (Auto) 0.3, Neut # (Auto) 16.7 H, Lymph # (Auto) 1.7, [place] # (Auto) 0.5, Eos # (Auto) 0.1, Baso # (Auto) 0.1, Total Counted 100, Neutrophils % (Manual) 84 H, Lymphocytes % (Manual) 12, Monocytes % (Manual) 4, Platelet Estimate Normal, RBC Morphology Normal 08/28/22 07:15: Sodium 133 L, Potassium 3.4 L, Chloride 95 L, Carbon Dioxide 27, Anion Gap 14.4, BUN 21 H, Creatinine 1.10 H, Estimated Creat Clear 93, Estimated GFR 53 L, Est GFR ( Amer) 64, Glucose 210 H D, Calcium 8.8, Magnesium 2.3, Total Bilirubin 1.0, AST 34, ALT 33, Alkaline Phosphatase 105, Total Protein 7.0, Albumin 3.7 D, Globulin 3.3 H, Albumin/Globulin Ratio 1.1 I & O for Last 24 hours: Intake & Output 08/25/22 08/26/22 08/27/22 08/28/22 23:59 23:59 23:59 23:59 Intake Total 1340 / 1340 1370 / 1370 Balance 1340 / 1340 1370 / 1370 Weight 94.432 kg 96.36 kg Microbiology Reports for the Last 24 Hours: Microbiology 08/27/22 13:38 Sputum - Expectorated Sputum Gram Stain - Final Constitutional Constitutional: mild distress (From back pain, uncomfortable appearing), obese, chronically ill appearing and cooperative *Routine HEENT Exam Head: Present normocephalic and atraumatic Eye: Present EOMI and PERRL ENT: Present mucous membranes moist and oropharynx clear *Routine Neck Exam Neck: Present supple and full ROM *Routine Respiratory Exam Respiratory: Present prolonged expiratory phase, rhonchi and crackles (Coarse crackles to rhonchi); Absent accessory muscle use, CTA bilaterally or respiratory distress *Routine Cardiovascular Exam Cardiovascular: Present RRR, Normal S1 and Normal S2; Absent murmur *Routine Abdominal Exam Abdominal: Present soft and normoactive bowel sounds; Absent tenderness, distended, rebound or guarding *Routine Extremities Exam Extremities: Present full ROM, pulses intact and normal capillary refill; Absent edema or tenderness *Routine Neurological Exam Neurological: Present alert, oriented X3, CN II-XII intact, moving all extremities, normal tone and normal speech; Absent sensory deficit or motor deficit Routine Psychiatric Exam Psychiatric: Present normal thought process, cooperative, good insight, good judgment and depressed Assessment and Plan *Assessment and plan (1) Pneumonia: Status: Acute Category: Medical Code(s): J18.9 - Pneumonia, unspecified organism (2) Chest pain: Status: Acute Category: Medical Code(s): R07.9 - Chest pain, unspecified (3) Fibromyalgia: Status: Chronic Category: Medical Code(s): M79.7 - Fibromyalgia (4) Migraine: Status: Chronic Qualifiers: Intractability: not intractable Migraine type: without aura Status migrainosus presence: without status migrainosus Qualified Code(s): G43.009 - Migraine without aura, not intractable, without status migrainosus Category: Medical Code(s): G43.909 - Migraine, unspecified, not intractable, without status migrainosus (5) Obesity (BMI 30-39.9): Status: Chronic Category: Medical Code(s): E66.9 - Obesity, unspecified (6) DM type 2 (d
--- NOTE | 2022-08-28 11:05 | EXP.PULM.PN ---
Subjective *Date: 08/28/22 *Time: 13:29 Interval history: No acute respiratory events overnight complains of worsening cough and chest pain Pulmonology Exam Inpatient Vital signs and Labs for Last 24 Hours: Temp Pulse Resp BP Pulse Ox 97.6 F 76 16 126/77 95 08/28/22 08:00 08/28/22 08:00 08/28/22 08:00 08/28/22 08:00 08/28/22 08:00 Laboratory Results - last 24 hr 08/27/22 14:10: Lactate 2.2 H 08/27/22 17:03: POC Glucose 165 H 08/27/22 17:28: Lactate 2.2 H 08/27/22 19:52: POC Glucose 191 H 08/28/22 05:39: POC Glucose 205 H 08/28/22 07:15: WBC 19.0 H, RBC 4.78, Hgb 11.6 L D, Hct 35.8 L, MCV 74.9 L, MCH 24.4 L, MCHC 32.6, RDW 17.7 H, Plt Count 176 D, MPV 8.7, Neut % (Auto) 87.9 H, Lymph % (Auto) 8.7 L, [place] % (Auto) 2.7, Eos % (Auto) 0.4, Baso % (Auto) 0.3, Neut # (Auto) 16.7 H, Lymph # (Auto) 1.7, [place] # (Auto) 0.5, Eos # (Auto) 0.1, Baso # (Auto) 0.1, Total Counted 100, Neutrophils % (Manual) 84 H, Lymphocytes % (Manual) 12, Monocytes % (Manual) 4, Platelet Estimate Normal, RBC Morphology Normal 08/28/22 07:15: Sodium 133 L, Potassium 3.4 L, Chloride 95 L, Carbon Dioxide 27, Anion Gap 14.4, BUN 21 H, Creatinine 1.10 H, Estimated Creat Clear 93, Estimated GFR 53 L, Est GFR ( Amer) 64, Glucose 210 H D, Calcium 8.8, Magnesium 2.3, Total Bilirubin 1.0, AST 34, ALT 33, Alkaline Phosphatase 105, Total Protein 7.0, Albumin 3.7 D, Globulin 3.3 H, Albumin/Globulin Ratio 1.1 I & O for Labs for Last 24 Hours: Intake & Output 08/25/22 08/26/22 08/27/22 08/28/22 23:59 23:59 23:59 23:59 Intake Total 1340 / 1340 1370 / 1370 Balance 1340 / 1340 1370 / 1370 Weight 208 lb 3 oz 212 lb 7 oz Microbiology Reports for the Last 24 Hours: Microbiology 08/27/22 13:38 Sputum - Expectorated Sputum Gram Stain - Final Constitutional: Present moderate distress Head: Present normocephalic and atraumatic ENT: Present normal exam, normal oropharynx and mucous membranes moist Neck: Present normal inspection and full ROM Respiratory: Present respiratory distress, rhonchi, diminished air movement and able to speak in complete sentences; Absent wheezes Cardiac: Present S1/S2, Tachycardia and radial pulses present GI: Present soft and distention; Absent tenderness or guarding Rectal (female): Present deferred (female): Present deferred Skin: Present intact; Absent cyanosis or jaundice Neuro: Present alert, awake and oriented x 3 Extremities: Present normal inspection; Absent clubbing or cyanosis Psychiatric: Present normal affect and cooperative Assessment and Plan *Assessment and plan (1) Pneumonia: Status: Acute Category: Medical Code(s): J18.9 - Pneumonia, unspecified organism (2) Chest pain: Status: Acute Category: Medical Code(s): R07.9 - Chest pain, unspecified Plan 52 Y/o h/o asthma, diabetes, Pseudomonas and Klebsiellap Pneumonia. Chest x-ray from admission dense upper lobe consolidation. Severe pleuritic chest pain. On room air saturating 90% on room air. No significant wheezing on auscultation. other Abnormalities include mild hyponatremia and hypokalemia, EDITA on CKD Interval update: Chest x-ray from CT chest with contrast from today showed continued worsening airspace disease. Cannot evaluate for pulmonary embolism given timing of the contrast. We will follow lower extremity Doppler. Antibiotics were escalated to cefepime overnight. Awaiting sputum cultures. Leukocytosis improving. Creatinine stable at 1.1. Hyperkalemia improved, now at 3.4. Adequate urine output. Plan: F/u LE venous doppler Nasal cannula oxygen supplementation as needed to maintain O2 saturation above 92% and above Continue cefepime and azithromycin pending sputum cultures, urine strep Legionella antigen DuoNebs every 6 hours along with budesonide scheduled. As Dilaudid and ibuprofen PRN for pain management. #Thank you for involving pulm in this patient care. Will Continue to follow.
--- NOTE | 2022-08-28 11:08 | CA_ITS ---
FINAL REPORT CLINICAL HISTORY: asthma, dm, pneumonia, sob FINDINGS: Color Doppler, duplex Doppler and compression sonography of the bilateral lower extremities was performed. There is no evidence of deep venous thrombosis from the level of the groin to the calf. The deep veins are patent and compressible. IMPRESSION: No evidence of deep venous thrombosis bilateral lower extremities. Reviewed, Interpreted and Dictated by Vernon Yates III, MD Transcribed by Anais Martinez Authenticated and [facility]
--- NOTE | 2022-08-28 11:24 | PC.NURSE ---
PULLED 2MG OF DILAUDID FROM [facility]. MEDICATION WOULD NOT DRAW FROM VIAL. VIAL TAKEN TO PHARMACY AND WASTED WITH ADRIANA LIN IN PHARMACY.
[2022-08-28 12:11] LABS: POC Glucose,Bedside 247 (70-110)
[2022-08-28 17:40] LABS: POC Glucose,Bedside 175 (70-110)
--- NOTE | 2022-08-28 18:25 | PC.NURSE ---
PT HAS BEEN MEDICATED WITH PRN PAIN MEDICATION AT FREQUENT INTERVALS DID RECEIVED PROMETHAZINE FOR N/V X2, NO VOMITING BUT PT DID HAVE EPISODE OF DRY HEAVES. SHE HAS RESTED IN BED FOR MOST OF SHIFT, HAS AMBULATED TO RESTROOM AND TOLERATED WELL. RECEIVING NEB TREATMENTS AND SUPPLEMENTAL O2 @ 2LNC.
[2022-08-28 21:54] LABS: POC Glucose,Bedside 211 (70-110)
[2022-08-29] VITALS (11 sets, daily range): BP systolic 103–141; BP diastolic 54–87; PULSE 66–90; RESP 16–20; TEMP 36.5–36.9; O2SAT 94–100; BMI 35.4
--- NOTE | 2022-08-29 04:44 | PC.NURSE ---
No changes over night and asked for pain mediations once.
[2022-08-29 05:26] LABS: POC Glucose,Bedside 211 (70-110)
[2022-08-29 08:15] LABS: Basophils # 0.1 K/mm3 (0-0.2); Basophils % 0.5 % (0.1-2.0); Eosinophils # 0.1 K/mm3 (0.0-0.4); Eosinophils % 0.8 % (0.1-12.0); Hematocrit 33.4 % (37.0-47.0); Hemoglobin 10.8 g/dL (12.2-16.2); Lymphocytes # 1.1 K/mm3 (0.7-4.5); Lymphocytes % 9.8 % (10-50); Mean Corpuscular HGB Conc 32.3 g/dL (31.8-35.4); Mean Corpuscular Hemoglobin 24.5 pg (27.0-31.2); Mean Corpuscular Volume 75.9 fl (81-99); Mean Platelet Volume 8.8 fl (7.4-10.4); Monocytes # 0.4 K/mm3 (0.1-1.0); Monocytes % 3.6 % (1.7-9.3); Neutrophils # 9.4 K/mm3 (1.8-7.8); Neutrophils % 85.4 % (37.0-80.0); Platelet Count 190 K/mm3 (142-424); Red Blood Count 4.41 M/mm3 (4.20-5.40); Red Cell Distribution Width 17.5 % (11.5-17.5)
[2022-08-29 08:18] LABS: MANUAL DIFFERENTIAL MANUAL DIFFERENTIAL (MANUAL DIFF)
[2022-08-29 08:20] LABS: Chloride 100 mmol/L (98-107); Potassium 3.4 mmoL/L (3.5-5.1); Sodium 138 mmol/L (136-145)
[2022-08-29 08:22] LABS: Blood Urea Nitrogen 19 mg/dl (7-17)
[2022-08-29 08:23] LABS: Alanine Aminotransferase 23 U/L (12-78); Albumin Level 3.3 g/dl (3.5-5.0); Alkaline Phosphatase 97 U/L (38-126); Anion Gap 7.4 mEq/L (5-15); Aspartate Amino Transferase 26 U/L (14-36); Bilirubin,Total 0.4 mg/dl (0.2-1.3); Carbon Dioxide 34 mmol/L (22.0-30.0); Creatinine Clearance Estimated 114 mL/min (50-200); Estimated Glomerular Filt Rate 66 ml/min (>60); GFR (African American) 80 ML/MIN (>60); Globulin 3.2 g/dL (1.3-3.2); Glucose 192 mg/dl (74-100); Magnesium 2.2 mg/dl (1.6-2.3); Total Protein,Serum 6.5 g/dl (6.3-8.2)
[2022-08-29 10:47] LABS: Lymphocytes % 14 % (10-50); Monocytes % 2 % (2-9); Neutrophils % 84 % (42-76); Total Cells Counted 100
[2022-08-29 10:48] LABS: Hypochromasia 1+; Microcytosis 1+; Platelet Estimate Normal
[2022-08-29 11:23] LABS: POC Glucose,Bedside 173 (70-110)
--- NOTE | 2022-08-29 15:34 | EXP.PN ---
Subjective *Date: 08/29/22 *Time: 15:34 Interval history: No acute events overnight, patient reports pain in her back is the same, no better no worse. Her shortness of breath has improved some though. Exam Data for Last 24 hours Vital signs and Labs for Last 24 Hours: Temp Pulse Resp BP Pulse Ox 98.2 F 66 18 113/62 94 L 08/29/22 12:00 08/29/22 13:20 08/29/22 12:00 08/29/22 12:00 08/29/22 13:20 Laboratory Results - last 24 hr 08/28/22 17:26: POC Glucose 175 H 08/28/22 21:40: POC Glucose 211 H 08/29/22 05:17: POC Glucose 211 H 08/29/22 08:00: WBC 11.0 H D, RBC 4.41, Hgb 10.8 L, Hct 33.4 L, MCV 75.9 L, MCH 24.5 L, MCHC 32.3, RDW 17.5, Plt Count 190, MPV 8.8, Neut % (Auto) 85.4 H, Lymph % (Auto) 9.8 L, [place] % (Auto) 3.6, Eos % (Auto) 0.8, Baso % (Auto) 0.5, Neut # (Auto) 9.4 H, Lymph # (Auto) 1.1, [place] # (Auto) 0.4, Eos # (Auto) 0.1, Baso # (Auto) 0.1, Total Counted 100, Neutrophils % (Manual) 84 H, Lymphocytes % (Manual) 14, Monocytes % (Manual) 2, Platelet Estimate Normal, Hypochromasia 1+, Microcytosis 1+ 08/29/22 08:00: Sodium 138, Potassium 3.4 L, Chloride 100, Carbon Dioxide 34 H, Anion Gap 7.4, BUN 19 H, Creatinine 0.90, Estimated Creat Clear 114, Estimated GFR 66, Est GFR ( Amer) 80 D, Glucose 192 H, Calcium 9.0, Magnesium 2.2, Total Bilirubin 0.4, AST 26, ALT 23 D, Alkaline Phosphatase 97, Total Protein 6.5, Albumin 3.3 L D, Globulin 3.2, Albumin/Globulin Ratio 1.0 L 08/29/22 11:16: POC Glucose 173 H I & O for Last 24 hours: Intake & Output 08/26/22 08/27/22 08/28/22 08/29/22 23:59 23:59 23:59 23:59 Intake Total 1340 / 1340 1969 940 / 940 Output Total 0 / 0 0 / 0 Balance 1340 / 1340 1969 940 / 940 Weight 94.432 kg 96 kg 96.343 kg Microbiology Reports for the Last 24 Hours: Microbiology 08/27/22 13:38 Sputum - Expectorated Sputum Gram Stain - Final 08/27/22 13:38 Sputum - Expectorated Sputum Sputum Culture - Preliminary 08/27/22 08:21 Blood Blood Culture - Preliminary NO GROWTH AFTER 48 HOURS 08/27/22 08:21 Blood Blood Culture - Preliminary NO GROWTH AFTER 48 HOURS Constitutional Constitutional: mild distress (From back pain, uncomfortable appearing), obese, chronically ill appearing and cooperative *Routine HEENT Exam Head: Present normocephalic and atraumatic Eye: Present EOMI and PERRL ENT: Present mucous membranes moist and oropharynx clear *Routine Neck Exam Neck: Present supple and full ROM *Routine Respiratory Exam Respiratory: Present decreased breath sounds, prolonged expiratory phase, rhonchi, distant breath sounds and diminished air movement; Absent accessory muscle use, CTA bilaterally, respiratory distress, wheezes or crackles *Routine Cardiovascular Exam Cardiovascular: Present RRR, Normal S1 and Normal S2; Absent murmur *Routine Abdominal Exam Abdominal: Present soft and normoactive bowel sounds; Absent tenderness, distended, rebound or guarding *Routine Extremities Exam Extremities: Present full ROM, pulses intact and normal capillary refill; Absent edema or tenderness *Routine Neurological Exam Neurological: Present alert, oriented X3, CN II-XII intact, moving all extremities, normal tone and normal speech; Absent sensory deficit or motor deficit Routine Psychiatric Exam Psychiatric: Present normal thought process, cooperative, good insight and depressed Assessment and Plan *Assessment and plan (1) Pneumonia: Status: Acute Category: Medical Code(s): J18.9 - Pneumonia, unspecified organism (2) Chest pain: Status: Acute Category: Medical Code(s): R07.9 - Chest pain, unspecified (3) Fibromyalgia: Status: Chronic Category: Medical Code(s): M79.7 - Fibromyalgia (4) Migraine: Status: Chronic Qualifiers: Intractability: not intractable Migraine type: without aura Status migrainosus presence: without stat
[2022-08-29 17:21] LABS: POC Glucose,Bedside 270 (70-110)
--- NOTE | 2022-08-29 18:06 | PC.NURSE ---
pt has had 4 unmeasured voids today
[2022-08-29 22:41] LABS: POC Glucose,Bedside 297 (70-110)
[2022-08-30 01:00] VITALS: O2SAT 95
[2022-08-30 03:46] VITALS: BP 127/72; PULSE 70; RESP 20; TEMP 37; O2SAT 96
[2022-08-30 03:47] VITALS: BMI 35.5
[2022-08-30 05:18] LABS: Basophils # 0.1 K/mm3 (0-0.2); Basophils % 1.1 % (0.1-2.0); Eosinophils # 0.1 K/mm3 (0.0-0.4); Eosinophils % 1.4 % (0.1-12.0); Hematocrit 32.2 % (37.0-47.0); Hemoglobin 10.6 g/dL (12.2-16.2); Lymphocytes # 1.1 K/mm3 (0.7-4.5); Lymphocytes % 13.7 % (10-50); Mean Corpuscular HGB Conc 32.8 g/dL (31.8-35.4); Mean Corpuscular Hemoglobin 24.8 pg (27.0-31.2); Mean Corpuscular Volume 75.5 fl (81-99); Mean Platelet Volume 8.1 fl (7.4-10.4); Monocytes # 0.4 K/mm3 (0.1-1.0); Monocytes % 4.6 % (1.7-9.3); Neutrophils # 6.6 K/mm3 (1.8-7.8); Neutrophils % 79.1 % (37.0-80.0); Platelet Count 179 K/mm3 (142-424); Red Blood Count 4.27 M/mm3 (4.20-5.40); Red Cell Distribution Width 17.6 % (11.5-17.5); White Blood Count 8.3 K/mm3 (4.8-10.8)
[2022-08-30 05:26] LABS: Lactic Acid 1.5 mmol/L (0.7-2.1)
[2022-08-30 05:29] LABS: Alanine Aminotransferase 22 U/L (12-78); Albumin Level 3.1 g/dl (3.5-5.0); Albumin/Globulin Ratio 0.9 (1.1-1.8); Alkaline Phosphatase 90 U/L (38-126); Anion Gap 8.6 mEq/L (5-15); Aspartate Amino Transferase 26 U/L (14-36); Bilirubin,Total 0.3 mg/dl (0.2-1.3); Blood Urea Nitrogen 18 mg/dl (7-17); Calcium 8.8 mg/dl (8.4-10.2); Carbon Dioxide 30 mmol/L (22.0-30.0); Chloride 104 mmol/L (98-107); Creatinine Clearance Estimated 129 mL/min (50-200); Estimated Glomerular Filt Rate 76 ml/min (>60); GFR (African American) 92 ML/MIN (>60); Globulin 3.3 g/dL (1.3-3.2); Glucose 220 mg/dl (74-100); Potassium 3.6 mmoL/L (3.5-5.1); Sodium 139 mmol/L (136-145); Total Protein,Serum 6.4 g/dl (6.3-8.2)
--- NOTE | 2022-08-30 06:00 | XR_ITS ---
PROCEDURE INFORMATION: Exam: XR Chest Exam date and time: 08/30/2022 8:55 AM Age: 52 years old Clinical indication: Shortness of breath; Additional info: Pnm TECHNIQUE: Imaging protocol: Radiologic exam of the chest. Views: 1 view. COMPARISON: CT CHEST W CON 08/28/2022 10:31 AM FINDINGS: Lungs: Again noted is the wedge-shaped density in the right upper lobe. Comparison across modalities is inexact, but the finding is unchanged since the comparison study. The remaining pulmonary parenchyma is clear. No other pulmonary infiltrate or consolidation. Pleural spaces: Unremarkable. No pleural effusion. No pneumothorax. Heart/Mediastinum: Unremarkable. No cardiomegaly. Bones/joints: Unremarkable. IMPRESSION: Airspace consolidation in the right upper lobe, unchanged in the interval. No new changes in the chest.
[2022-08-30 06:11] VITALS: PULSE 64; PULSE 74; O2SAT 97
[2022-08-30 06:44] LABS: POC Glucose,Bedside 210 (70-110)
--- NOTE | 2022-08-30 06:56 | PC.NURSE ---
NO ACUTE CHANGES SINCE PREVIOUS ASSESSMENT. PT REMAINS ON ROOM AIR. HAS AMBULATED IN THE [facility] THIS SHIFT. PT C/O MILD PAIN X1 THIS SHIFT. LUNG SOUNDS ARE DIMINISHED. VSS.
[2022-08-30 07:38] VITALS: BP 151/76; PULSE 65; RESP 17; TEMP 36.9; O2SAT 98
[2022-08-30 08:00] VITALS: O2SAT 93
--- NOTE | 2022-08-30 10:30 | EXP.DC.SUM ---
General Admission date:: 08/27/22 Discharge date: 08/30/22 HPI HPI HPI: Patient is a 52-year-old woman with past medical history of type 2 diabetes, fibromyalgia, migraine headaches, and obesity who came to the ER this morning for somewhat acute onset right posterior/inferior chest pain, cough, and shortness of breath. Patient reports the symptoms began somewhat abruptly around 1 AM, she was hoping symptoms would pass or improve, however since they did not she decided to come to the ER for further evaluation. Chest pain is described as dull, 7 out of 10, does not radiate anywhere and nothing makes it better or worse. Exam Data for Last 24 hours Vital signs and Labs for Last 24 Hours: Temp Pulse Resp BP Pulse Ox 98.5 F 65 17 151/76 H 98 08/30/22 07:38 08/30/22 07:38 08/30/22 07:38 08/30/22 07:38 08/30/22 07:38 Laboratory Results - last 24 hr 08/29/22 08:00: Total Counted 100, Neutrophils % (Manual) 84 H, Lymphocytes % (Manual) 14, Monocytes % (Manual) 2, Platelet Estimate Normal, Hypochromasia 1+, Microcytosis 1+ 08/29/22 11:16: POC Glucose 173 H 08/29/22 17:11: POC Glucose 270 H 08/29/22 21:30: POC Glucose 297 H 08/30/22 05:05: WBC 8.3, RBC 4.27, Hgb 10.6 L, Hct 32.2 L, MCV 75.5 L, MCH 24.8 L, MCHC 32.8, RDW 17.6 H, Plt Count 179, MPV 8.1, Neut % (Auto) 79.1, Lymph % (Auto) 13.7, [place] % (Auto) 4.6, Eos % (Auto) 1.4, Baso % (Auto) 1.1, Neut # (Auto) 6.6, Lymph # (Auto) 1.1, [place] # (Auto) 0.4, Eos # (Auto) 0.1, Baso # (Auto) 0.1 08/30/22 05:05: Sodium 139, Potassium 3.6, Chloride 104, Carbon Dioxide 30, Anion Gap 8.6, BUN 18 H, Creatinine 0.80, Estimated Creat Clear 129, Estimated GFR 76, Est GFR ( Amer) 92, Glucose 220 H, Calcium 8.8, Total Bilirubin 0.3, AST 26, ALT 22, Alkaline Phosphatase 90, Total Protein 6.4, Albumin 3.1 L, Globulin 3.3 H, Albumin/Globulin Ratio 0.9 L 08/30/22 05:05: Lactate 1.5 08/30/22 05:14: POC Glucose 210 H I & O for Last 24 hours: Intake & Output 08/27/22 08/28/22 08/29/22 08/30/22 23:59 23:59 23:59 23:59 Intake Total 1340 / 1340 1969 1300 / 1300 300 / 300 Output Total 0 / 0 0 / 0 0 / 0 Balance 1340 / 1340 1969 1300 / 1300 300 / 300 Weight 94.432 kg 96 kg 96.343 kg 96.757 kg Microbiology Reports for the Last 24 Hours: Microbiology 08/29/22 14:00 Sputum - Expectorated Sputum Gram Stain - Final 08/29/22 14:00 Sputum - Expectorated Sputum Sputum Culture - Preliminary 08/27/22 13:38 Sputum - Expectorated Sputum Gram Stain - Final 08/27/22 13:38 Sputum - Expectorated Sputum Sputum Culture - Preliminary Gram Positive Cocci 08/27/22 08:21 Blood Blood Culture - Preliminary NO GROWTH AFTER 48 HOURS 08/27/22 08:21 Blood Blood Culture - Preliminary NO GROWTH AFTER 48 HOURS Constitutional Constitutional: no acute distress, obese, chronically ill appearing and cooperative Comments: More comfortable appearing today *Routine HEENT Exam Head: Present normocephalic and atraumatic Eye: Present EOMI and PERRL ENT: Present mucous membranes moist and oropharynx clear *Routine Neck Exam Neck: Present supple and full ROM *Routine Respiratory Exam Respiratory: Present decreased breath sounds, rhonchi, crackles (Occasional crackles appreciated diffusely), distant breath sounds and diminished air movement; Absent accessory muscle use, CTA bilaterally, respiratory distress or wheezes *Routine Cardiovascular Exam Cardiovascular: Present RRR, Normal S1 and Normal S2; Absent murmur *Routine Abdominal Exam Abdominal: Present soft and normoactive bowel sounds; Absent tenderness, distended, rebound or guarding *Routine Extremities Exam Extremities: Present full ROM, pulses intact and normal capillary refill; Absent edema or tenderness *Routine Neurological Exam Neurological: Present alert, oriented X3, CN II-XII intact, moving all extremities, normal tone and normal speech; Absent se
--- NOTE | 2022-09-01 14:15 | CARE MANAGER ---
Spoke with patient for post-discharge phone interview.
[2022-09-01 16:02] LABS: Legionella pneumophila Urinary Negative (Negative)
[2022-09-01 23:37] LABS: Body Fluid Culture, Sterile Not indicated. (.); Organism ID Not indicated. (.); Specimen Source Urine (.); Streptococcus pneumoniae Ag Negative (Negative)
== END 2022-08-30 12:30 | disposition home or self-care (01) | DRG 871 ==
LOC: ER 09:26 → 2ND 08-28 02:16
PROVIDERS: Internal Medicine Pulmonary Disease; Admitting Provider Emergency Medicine; Emergency Provider Emergency Medicine; PCP Emergency Medicine; Visit Provider Emergency Medicine
DX: A41.9 Sepsis, unspecified organism (principal); J18.9 Pneumonia, unspecified organism; N17.9 Acute kidney failure, unspecified; R65.20 Severe sepsis without septic shock; E11.40 Type 2 diabetes mellitus with diabetic neuropathy, unspecified; Z79.4 Long term (current) use of insulin; E66.9 Obesity, unspecified; Z68.35 Body mass index [BMI] 35.0-35.9, adult; M79.7 Fibromyalgia; G43.909 Migraine, unspecified, not intractable, without status migrainosus
CPT/HCPCS: 36415; 71045; 71046; 71250; 71260; 80053; 82962; 83605; 83735; 84484; 85007; 85025; 87040; 87070; 87077; 87186; 87205; 87899; 93005; 93970; 94640; 94760; 94761; 99285; C9803; J0456; J0696; J2405; J3475; Q9967; U0003; U0005

== ENCOUNTER → 2022-09-03 10:16 | Outpatient (CLI) | payer OTHER, SELFPAY ==
--- NOTE | 2022-09-03 10:18 | XR_ITS ---
FINAL REPORT TECHNIQUE: Chest PA & Lateral CLINICAL HISTORY: Pneumonia COMPARISON: August 30, 2022 FINDINGS: 2 views of the chest were performed. The heart size is normal. The mediastinum is within normal limits. There is a moderately improved right upper lobe opacity consistent with proved pneumonia. There is mild left base atelectasis or pneumonia. There are no pleural effusions. There is no pneumothorax. The bony thorax appears intact. IMPRESSION: Moderately improved right upper lobe pneumonia. Mild left base atelectasis or pneumonia. Reviewed, Interpreted and Dictated by Vernon Yates III, MD Transcribed by Jalil Burns Authenticated and . [facility]
== END ==
PROVIDERS: PCP Emergency Medicine; Visit Provider Internal Medicine Pulmonary Disease
DX: J18.9 Pneumonia, unspecified organism (principal)
CPT/HCPCS: 71046

== ENCOUNTER 2022-09-29 08:06 | Day surgery (SDC) | payer OTHER, SELFPAY ==
[2022-09-29 08:24] VITALS: BP 148/91; PULSE 71; RESP 18; TEMP 36.1; O2SAT 98; BMI 33.6
[2022-09-29 08:40] VITALS: BP 128/85; PULSE 69; RESP 18; O2SAT 98
[2022-09-29 08:41] VITALS: BP 128/85; PULSE 69; RESP 18; O2SAT 98
--- NOTE | 2022-09-29 08:56 | EXP.PAIN.PRO ---
Procedure Date: 09/29/22 Time: 08:30 Anesthesiologist:: Jude Cardona CRNA Complications:: None Pre-procedure Diagnosis:: Left shoulder pain. Osteoarthritis left shoulder. Post-procedure Diagnosis:: Same. Indications for Procedure:: This patient is a pleasant 52-year-old female comes our clinic today for chronic left shoulder pain. Osteoarthritis left shoulder. She rates her left shoulder pain 7/10. She has difficulty with range of motion. Strength is good. Procedure Details:: Procedure Details: Left shoulder intra-articular injection Informed consent was obtained risk and benefits of the procedure were explained to the patient. Patient was taken to the procedure room. The left shoulder was prepped using ChloraPrep. A 25-gauge needle was used first anteriorly, laterally, and then posteriorly to inject 5 mL bupivacaine 0.25% and Depo-Medrol 40 mg. Patient tolerated procedure well with no complications. Left suprascapular nerve block: Using a 25-gauge needle the left lateral border of the superior margin of the scapula was accessed with ease. 5 cc of 0.25% Marcaine +40 mg Depo-Medrol was injected into incrementally. This was after negative aspiration. Patient tolerated procedure without difficulty. There are no complications. Plan and Disposition:: Patient was discharged without incident.
[2022-09-29 09:10] VITALS: BP 148/91; PULSE 71; RESP 18; O2SAT 98
--- NOTE | 2022-09-29 09:16 | EXP.PAIN.PRO ---
Procedure Date: 09/29/22 Time: 08:40 Anesthesiologist:: Jude Cardona CRNA Complications:: None Pre-procedure Diagnosis:: Osteoarthritis left shoulder. Post-procedure Diagnosis:: Same. Indications for Procedure:: Patient is a very pleasant 52-year-old female that has had bilateral shoulder surgeries. She is continue to have pain on the left after recent fall. She describes pain as constant, dull, aching. Pain has a pattern of the superior margin of the shoulder. She presents today for left suprascapular nerve block. Procedure Details:: Details of the procedure were explained to the patient. The patient taken to procedure room placed in sitting position. The area over the left scapula was cleaned using chlorhexidine as a cleansing solution. Palpating the superior margin of the left scapula. Using a 25-gauge needle the left lateral with ease. After negative aspiration in incremental fashion 8 cc of 0.25% Marcaine +40 mg of Depo-Medrol was injected. Patient tolerated the procedure without difficulty. There are no complications. Superior margin was accessed Plan and Disposition:: Patient was discharged without incident.
== END 2022-09-29 09:10 | disposition home or self-care (01) ==
PROVIDERS: PCP Emergency Medicine; Visit Provider Nurse Anesthetist, Certified Registered
DX: M19.012 Primary osteoarthritis, left shoulder (principal); M25.512 Pain in left shoulder
CPT/HCPCS: 64418; J1030

== ENCOUNTER → 2022-11-24 08:19 | Outpatient (CLI) | payer OTHER, SELFPAY ==
[2022-11-24 09:46] LABS: Basophils # 0.1 K/mm3 (0-0.2); Basophils % 1.2 % (0.1-2.0); Eosinophils # 0.1 K/mm3 (0.0-0.4); Eosinophils % 1.5 % (0.1-12.0); Hematocrit 43.5 % (37.0-47.0); Hemoglobin 14.1 g/dL (12.2-16.2); Lymphocytes # 2.4 K/mm3 (0.7-4.5); Lymphocytes % 30.5 % (10-50); Mean Corpuscular HGB Conc 32.4 g/dL (31.8-35.4); Mean Corpuscular Hemoglobin 24.5 pg (27.0-31.2); Mean Corpuscular Volume 75.5 fl (81-99); Mean Platelet Volume 7.9 fl (7.4-10.4); Monocytes # 0.4 K/mm3 (0.1-1.0); Monocytes % 4.8 % (1.7-9.3); Platelet Count 237 K/mm3 (142-424); Red Blood Count 5.76 M/mm3 (4.20-5.40); Red Cell Distribution Width 17.2 % (11.5-17.5)
[2022-11-24 10:11] LABS: Alanine Aminotransferase 34 U/L (12-78); Albumin Level 4.4 g/dl (3.5-5.0); Albumin/Globulin Ratio 1.3 (1.1-1.8); Alkaline Phosphatase 112 U/L (38-126); Anion Gap 10.8 mEq/L (5-15); Aspartate Amino Transferase 43 U/L (14-36); Bilirubin,Total 0.8 mg/dl (0.2-1.3); Blood Urea Nitrogen 14 mg/dl (7-17); Calcium 9.2 mg/dl (8.4-10.2); Carbon Dioxide 37 mmol/L (22.0-30.0); Chloride 93 mmol/L (98-107); Chol/HDL Ratio 4.3 (1-3.5); Cholesterol 133 mg/dl (140-200); Estimated Glomerular Filt Rate 59 ml/min (>60); GFR (African American) 71 ML/MIN (>60); Globulin 3.3 g/dL (1.3-3.2); Glucose 191 mg/dl (74-100); HDL Cholesterol 31 mg/dl (40-60); Potassium 3.8 mmoL/L (3.5-5.1); Sodium 137 mmol/L (136-145); Total Protein,Serum 7.7 g/dl (6.3-8.2); Triglycerides 225 mg/dl (30-150); VLDL Cholesterol 45 mg/dL (0-40)
[2022-11-24 10:27] LABS: Free T4 (Free Thyroxine) 0.93 ng/dl (0.78-2.19)
[2022-11-24 10:29] LABS: 25-OH Vitamin D, Total 52.9 ng/mL (30-100)
[2022-11-24 10:41] LABS: Thyroid Stimulating Hormone 3.11 uIU/mL (0.465-4.68)
[2022-11-24 11:12] LABS: Hemoglobin A1C 6.3 % (4.0-6.0)
--- NOTE | 2022-11-24 15:34 | CT_ITS ---
FINAL REPORT CLINICAL HISTORY: foot pain FINDINGS: CT LEFT FOOT WITHOUT CONTRAST Technique: 3D reconstruction images were performed of a separate station. Axial images through the left foot were performed by computed tomography. Sagittal and coronal reconstruction images were performed. This study was performed with techniques to keep radiation doses as low as reasonably achievable (ALARA). Individualized dose reduction techniques using automated exposure control or adjustment of mA and/or kV according to the patient's size were employed. No fracture is identified. No dislocation identified. The joint spaces are preserved. No soft tissue abnormality. IMPRESSION: No acute process. Reviewed, Interpreted and Dictated by Robert Bucriaga MD Transcribed by Jalil Burns Authenticated and [facility]
== END ==
PROVIDERS: PCP Emergency Medicine; Visit Provider Emergency Medicine
DX: R53.83 Other fatigue (principal); E11.9 Type 2 diabetes mellitus without complications; E87.6 Hypokalemia; M79.672 Pain in left foot; M77.52 Other enthesopathy of left foot and ankle; E66.9 Obesity, unspecified; Z68.34 Body mass index [BMI] 34.0-34.9, adult; Z79.84 Long term (current) use of oral hypoglycemic drugs
CPT/HCPCS: 36415; 73700; 80053; 80061; 82306; 83036; 84439; 84443; 85025

== ENCOUNTER → 2023-01-20 12:02 | Outpatient (CLI) | payer OTHER, SELFPAY ==
--- NOTE | 2023-01-20 12:07 | US_ITS ---
FINAL REPORT CLINICAL HISTORY: plantar fibroma/mass COMPARISON: None FINDINGS: ULTRASOUND SOFT TISSUE LIMITED Sonographic images of the plantar surface of the right foot were obtained. There is a 1.6 x 1.0 cm heterogeneous mass at the area of interest which may represent plantar fibroma or other solid mass. IMPRESSION: 1.6 x 1.0 cm heterogeneous mass as above. Reviewed, Interpreted and Dictated by Vernon Yates III, MD Transcribed by Fely Brown Authenticated and [facility]
== END ==
LOC: RAD 12:02
PROVIDERS: PCP Emergency Medicine; Visit Provider Podiatrist
DX: M72.2 Plantar fascial fibromatosis (principal)
CPT/HCPCS: 76882

== ENCOUNTER 2023-02-08 13:41 | Observation (INO) | payer OTHER, SELFPAY ==
[2023-02-08] VITALS (14 sets, daily range): BP systolic 99–167; BP diastolic 59–100; PULSE 58–71; RESP 14–20; TEMP 36.5–36.7; O2SAT 95–99; BMI 34.4; BMI 34.1
--- NOTE | 2023-02-08 13:43 | ECG_ITS ---
APPROVED REPORT Exam: Resting ECG HR:72 bpm ECG Measurements Heart Rate 72 AXES VT 152 P 59 QRSd 98 QRS 54 QT 411 T 44 QTc 435 Conclusion SINUS RHYTHM NORMAL ECG UNCONFIRMED REPORT Electronically signed by : Milo Cordoba MD 02/11/2023 09:33:43
--- NOTE | 2023-02-08 13:44 | CT_ITS ---
FINAL REPORT TECHNIQUE: Axial imaging of the chest is obtained after the administration of contrast. 3-D MIP reformatted images were also obtained and reviewed per PE protocol. CLINICAL HISTORY: chest pain to back COMPARISON: CT chest with contrast 08/28/2022 FINDINGS: The pulmonary arteries are well filled. There is no evidence of pulmonary embolus. Nondiagnostic for aortic dissection due to contrast bolus timing.. There is no mediastinal, hilar, or axillary lymphadenopathy. Previously seen right upper lobe pneumonia has resolved. Subpleural right lower lobe nodule measuring 5 mm was not seen previously but possibly obscured by atelectasis. There is no pleural or pericardial effusion. Limited evaluation of the upper abdomen demonstrates fatty infiltration of the liver. No acute osseous abnormality. IMPRESSION: No evidence of pulmonary embolism. Nondiagnostic for dissection. Reviewed, Interpreted and Dictated by Deborah Machado MD Transcribed by Fely Brown Authenticated and [facility]
--- NOTE | 2023-02-08 13:44 | XR_ITS ---
FINAL REPORT CLINICAL HISTORY: Precordial chest pain COMPARISON: 09/03/2022 FINDINGS: A portable view of the chest was obtained. Cardiac and mediastinal silhouettes are within normal limits. The lungs are clear. There is no pleural effusion or pneumothorax. IMPRESSION: No acute process on this portable exam. Reviewed, Interpreted and Dictated by Deborah Machado MD Transcribed by Fely Brown Authenticated and [facility]
[2023-02-08 13:54] LABS: Coronavirus 19, PCR Not Detected (NotDetected); Influenza A, PCR Not Detected (NotDetected); Influenza B, PCR Not Detected (NotDetected)
[2023-02-08 13:58] LABS: POC Glucose,Bedside 141 (70-110)
[2023-02-08 13:59] LABS: Basophils # 0.1 K/mm3 (0-0.2); Basophils % 1.3 % (0.1-2.0); Eosinophils # 0.1 K/mm3 (0.0-0.4); Hemoglobin 13.8 g/dL (12.2-16.2); Lymphocytes # 2.4 K/mm3 (0.7-4.5); Lymphocytes % 35.3 % (10-50); Mean Corpuscular HGB Conc 32.2 g/dL (31.8-35.4); Mean Corpuscular Hemoglobin 24.4 pg (27.0-31.2); Mean Corpuscular Volume 75.8 fl (81-99); Mean Platelet Volume 7.8 fl (7.4-10.4); Monocytes # 0.4 K/mm3 (0.1-1.0); Neutrophils # 3.8 K/mm3 (1.8-7.8); Neutrophils % 55.5 % (37.0-80.0); Platelet Count 181 K/mm3 (142-424); Red Blood Count 5.67 M/mm3 (4.20-5.40); Red Cell Distribution Width 15.9 % (11.5-17.5); White Blood Count 6.9 K/mm3 (4.8-10.8)
--- NOTE | 2023-02-08 13:59 | HMH.EDGENADL ---
Discharge Plan Disposition Patient Disposition: Admitted Condition: Fair Chief Complaint: Chest Pain Prescriptions Prescriptions: No Action glipizide 5 mg tablet extended release 24hr 5 mg PO DAILY omeprazole 40 mg capsule,delayed release(DR/EC) 40 mg PO DAILY furosemide 80 mg tablet 80 mg PO DAILY simvastatin 5 mg tablet 5 mg PO HS ergocalciferol (vitamin D2) 1,250 mcg (50,000 unit) capsule 1,250 mcg PO WEEKLY zolpidem 10 mg tablet 10 mg PO HS duloxetine 20 mg capsule,delayed release(DR/EC) 20 mg PO DAILY pregabalin 150 mg capsule 150 mg PO BID Jardiance 10 mg tablet 10 mg PO DAILY Ozempic 1 mg/dose (4 mg/3 mL) pen injector 1 mg SQ WEEKLY Referrals Follow up/Referrals: Anshul Stephen MD [Primary Care Provider] - See instructions Clinical Impressions Clinical Impression: Chest pain, Epigastric abdominal pain Discharge ED Provider: Lety Gonzales Adult HPI General Chief complaint: Chest Pain Stated complaint: Chest Pain Time Seen by Provider: 02/08/23 13:44 Mode of Arrival: Wheelchair Source of Information: Patient Limitations: No Limitations Description of Symptoms (Recalled from ER Triage Doc. by RN): 52 F presents from home with 1 day of left sided chest pressure that radiates to her left arm. Patient reports upper back pain that is sharp. Patient states she has not been feeling right since she woke up yesterday, and today it has continued to be the same without getting worse or better. NAD on arrival, VSS. Daughter at bedside History of Present Illness HPI narrative: 52-year-old female presenting to the emergency department with chest pain, pressure. Symptoms started this morning. Located in the midportion of the chest and radiating to the left shoulder, jaw. Symptoms have been constant since onset. She tried resting, lying in bed to help with the symptoms. No medications prior to arrival. She feels generally unwell, malaise. No nausea, diaphoresis, shortness of breath. No pain with inspiration. No new medications. No cough, fevers, chills. Related Data Home Medications Medication Instructions Recorded Confirmed duloxetine 20 mg capsule,delayed 20 mg PO DAILY Mood 02/08/23 02/08/23 release empagliflozin 10 mg tablet 10 mg PO DAILY Diabetes 02/08/23 02/08/23 (Jardiance) ergocalciferol (vitamin D2) 1,250 1,250 mcg PO WEEKLY Supplement 02/08/23 02/08/23 mcg (50,000 unit) capsule furosemide 80 mg tablet 80 mg PO DAILY Fluid 02/08/23 02/08/23 glipizide 5 mg tablet, extended 5 mg PO DAILY Diabetes 02/08/23 02/08/23 release 24 hr omeprazole 40 mg capsule,delayed 40 mg PO DAILY Acid reflux 02/08/23 02/08/23 release pregabalin 150 mg capsule 150 mg PO BID Pain 02/08/23 02/08/23 semaglutide 1 mg/dose (4 mg/3 mL) 1 mg SQ WEEKLY Weight loss 02/08/23 02/08/23 subcutaneous pen injector (Ozempic) simvastatin 5 mg tablet 5 mg PO HS Cholesterol 02/08/23 02/08/23 zolpidem 10 mg tablet 10 mg PO HS Insomnia 02/08/23 02/08/23 Allergies Allergy/AdvReac Type Severity Reaction Status Date / Time metformin AdvReac Intermediate abd Verified 01/27/23 15:39 pain,diarrhea PFSH PFSH Disclaimer: The information contained in this section may have been updated after the patient was seen, as this information can be updated by other users. Medical History Anterior pleuritic pain Capsulitis of ankle Diabetes Fibromyalgia Migraine Neuropathy Obesity (BMI 30-39.9) Surgical History History of partial hysterectomy Family History Other No significant family history Social History Smoking Status: Former smoker second hand exposure: No alcohol intake: never substance use type: denies use current oc
[2023-02-08 14:01] LABS: Chloride 101 mmol/L (98-107); Sodium 141 mmol/L (136-145)
[2023-02-08 14:04] LABS: Alanine Aminotransferase 39 U/L (12-78); Albumin Level 4.2 g/dl (3.5-5.0); Albumin/Globulin Ratio 1.2 (1.1-1.8); Alkaline Phosphatase 119 U/L (38-126); Aspartate Amino Transferase 46 U/L (14-36); Bilirubin,Total 0.5 mg/dl (0.2-1.3); Blood Urea Nitrogen 12 mg/dl (7-17); Calcium 9.1 mg/dl (8.4-10.2); Carbon Dioxide 32 mmol/L (22.0-30.0); Creatinine Clearance Estimated 125 mL/min (50-200); Estimated Glomerular Filt Rate 76 ml/min (>60); GFR (African American) 92 ML/MIN (>60); Globulin 3.4 g/dL (1.3-3.2); Glucose 142 mg/dl (74-100); Total Protein,Serum 7.6 g/dl (6.3-8.2)
[2023-02-08 14:10] LABS: INR 1.01 (0.9-1.1); Prothrombin Time 10.9 seconds (10.1-12.5)
[2023-02-08 14:18] LABS: Troponin I < 0.01 ng/ml (0.00-0.034)
--- NOTE | 2023-02-08 14:34 | PC.NURSE ---
contacted rad to check on status of pt going to ct and xray-staff reports will be over to get pt as soon as they can
--- NOTE | 2023-02-08 14:40 | PC.NURSE ---
pt to radiology
--- NOTE | 2023-02-08 14:40 | PC.NURSE ---
Patient going to CT now
--- NOTE | 2023-02-08 14:51 | PC.NURSE ---
Patient back from CT
--- NOTE | 2023-02-08 15:28 | PC.NURSE ---
Attending notified that patient not feeling any better. No new orders
--- NOTE | 2023-02-08 15:33 | PC.NURSE ---
contacted rad to check on status of ct and xray reports- rad staff reports scans are locked
--- NOTE | 2023-02-08 16:09 | PC.NURSE ---
Dr. Gonzales at for re-eval
--- NOTE | 2023-02-08 16:29 | PC.NURSE ---
green top tube sent to lab at this time for second troponin pt resting in bed on her side, states no needs at this time.
[2023-02-08 16:56] LABS: Troponin I < 0.01 ng/ml (0.00-0.034)
--- NOTE | 2023-02-08 17:25 | PC.NURSE ---
TABBY PINEDA speaking with hospitalist
--- NOTE | 2023-02-08 17:55 | PC.NURSE ---
Report has been called to Jessica Mckeon RN. Awaiting 2nd floor for transport
--- NOTE | 2023-02-08 18:00 | PC.NURSE ---
pt to 2nd floor via wheelchair
--- NOTE | 2023-02-08 18:06 | PC.NURSE ---
arrived to floor by w/c from ED
--- NOTE | 2023-02-08 19:22 | EXP.HP ---
History of Present Illness *Admission Date: 02/08/23 *Reason for visit:: Chest Pain *History of present illness: Ms. Leija is a 52-year-old female with a past medical history of DM, Hyperlipidemia, Obesity, Fibromyalgia, Neuropathies. She presents to [facility] due to a 1-day history of left sternal chest pain with radiation to the left arm and upper back associated with nausea, no shortness of air. In the ER, the patient underwent an EKG that showed NSR with no ST segment elevation or depression, rate 72. Troponin was <0.01 x 2. CTA and Cxray preliminary showed no acute changes. Covid and Flu testing were negative. CBC and CMP were unremarkable. The patient was admitted with initial impression: Chest Pain, Cardiology has been consulted, she will be monitored on telemetry overnight. Echo is ordered for the am. [facility] Disclaimer: The information contained in this section may have been updated after the patient was seen, as this information can be updated by other users. 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/hazards: No caffeine: Yes Review of Systems Review of Systems Review of systems:: pertinent systems reviewed and negative unless documented below Constitutional Constitutional: Reports system reviewed and no additional complaints, except as documented Eyes Eyes: Reports system reviewed and no additional complaints, except as documented ENT Ears, Nose, Mouth, and Throat: Reports system reviewed and no additional complaints, except as documented *Cardiovascular Cardiovascular: Reports chest pain *Respiratory Respiratory: Reports system reviewed and no additional complaints, except as documented *Gastrointestinal Gastrointestinal: Reports nausea *Genitourinary Genitourinary: Reports system reviewed and no additional complaints, except as documented *Musculoskeletal Musculoskeletal: Reports system reviewed and no additional complaints, except as documented and Reports numbness (Occasional, left arm) Integumentary/Breasts Skin/Breast: Reports system reviewed and no additional complaints, except as documented *Neurologic Neurologic: Reports system reviewed and no additional complaints, except as documented and Reports numbness (Occasional, left arm) Psychiatric Psychiatric: Reports system reviewed and no additional complaints, except as documented Endocrine Endocrine: Reports system reviewed and no additional complaints, except as documented Hematologic/Lymphatic Hematologic/Lymphatic: Reports system reviewed and no additional complaints, except as documented Allergic/Immunologic Allergic/Immunologic: Reports system reviewed and no additional complaints, except as documented Meds Home Medications and Allergies Home Medications Medication Instructions Recorded Confirmed Type duloxetine 20 mg capsule,delayed 20 mg PO BID Mood 02/08/23 02/09/23 History release empagliflozin 10 mg tablet 10 mg PO DAILY Diabetes 02/08/23 02/08/23 History (Jardiance) ergocalciferol (vitamin D2) 1,250 1,250 mcg PO WEEKLY Supplement 02/08/23 02/08/23 History mcg (50,000 unit) capsule furosemide 80 mg tablet 80 mg PO DAILY Fluid 02/08/23 02/08/23 History glipizide 5 mg tablet, extended 10 mg PO DAILY
[2023-02-08 20:21] LABS: Troponin I < 0.01 ng/ml (0.00-0.034)
[2023-02-08 21:09] LABS: POC Glucose,Bedside 160 (70-110)
[2023-02-09] VITALS (9 sets, daily range): BP systolic 97–131; BP diastolic 48–80; PULSE 54–63; RESP 16–18; TEMP 36.5–36.9; O2SAT 94–99; BMI 33.5
--- NOTE | 2023-02-09 04:44 | PC.NURSE ---
Patient has rested this shift. Has complained of pain, see MAR. No new issues.
[2023-02-09 06:27] LABS: POC Glucose,Bedside 116 (70-110)
[2023-02-09 07:02] LABS: Lymphocytes # 2.3 K/mm3 (0.7-4.5); Monocytes # 0.3 K/mm3 (0.1-1.0)
[2023-02-09 07:05] LABS: Chloride 106 mmol/L (98-107); Potassium 3.8 mmoL/L (3.5-5.1); Sodium 142 mmol/L (136-145)
[2023-02-09 07:08] LABS: Anion Gap 8.8 mEq/L (5-15); Blood Urea Nitrogen 8 mg/dl (7-17); Carbon Dioxide 31 mmol/L (22.0-30.0); Creatinine Clearance Estimated 121 mL/min (50-200); Estimated Glomerular Filt Rate 76 ml/min (>60); GFR (African American) 92 ML/MIN (>60)
[2023-02-09 07:09] LABS: Calcium 8.2 mg/dl (8.4-10.2); Glucose 121 mg/dl (74-100)
--- NOTE | 2023-02-09 07:19 | HMH.PHAINT1 ---
Pharmacy Intervention Comments: Home medication list verified through external fill history from outside pharmacy.
[2023-02-09 07:23] LABS: Basophils # 0.1 K/mm3 (0-0.2); Eosinophils # 0.2 K/mm3 (0.0-0.4); Eosinophils % 3.2 % (0.1-12.0); Hematocrit 35.6 % (37.0-47.0); Lymphocytes % 42.4 % (10-50); Mean Corpuscular HGB Conc 32.6 g/dL (31.8-35.4); Mean Corpuscular Hemoglobin 25.1 pg (27.0-31.2); Mean Platelet Volume 7.4 fl (7.4-10.4); Monocytes % 6.2 % (1.7-9.3); Neutrophils # 2.5 K/mm3 (1.8-7.8); Neutrophils % 47.1 % (37.0-80.0); Platelet Count 144 K/mm3 (142-424); Red Blood Count 4.61 M/mm3 (4.20-5.40); White Blood Count 5.3 K/mm3 (4.8-10.8)
[2023-02-09 07:25] LABS: Cholesterol 133 mg/dl (140-200); Hemoglobin 11.6 g/dL (12.2-16.2); Triglycerides 303 mg/dl (30-150); VLDL Cholesterol 61 mg/dL (0-40)
[2023-02-09 07:26] LABS: Chol/HDL Ratio 5.1 (1-3.5); HDL Cholesterol 26 mg/dl (40-60)
[2023-02-09 07:36] LABS: Direct LDL Cholesterol 62.74 mg/dL (100-129)
--- NOTE | 2023-02-09 09:03 | EXP.CARD.CON ---
History of Present Illness History of Present Illness Consult date: 02/09/23 Requesting physician: Conrad Aege Consult reason: chest pain Chief complaint: chest pain Additional Medical History:: 1. Diabetes mellitus, treated for about 10 years A. Hemoglobin A1c 6.3 this year 2. [facility], 2017, normal coronary arteries 3. History of cardiac ablation for PVCs, 2017, Dr. Luis Daniel Silvestre, [facility] 4. Hyperlipidemia History of present illness: 52-year-old female with history as noted above presented to the emergency department today for onset of substernal chest discomfort that radiates around the left breast up through the left side of the neck into the left side of the head and also into the left arm with numbness. Symptoms began at rest. No associated nausea, vomiting, diaphoresis or shortness of breath. Activity does not seem to aggravate or alleviate the discomfort. Patient denies any lightheadedness or dizziness. She presented to the ER for evaluation after symptoms continued. Work-up in the ER included EKG that showed sinus rhythm with no ST segment depression or elevation, initial troponin was normal, chest x-ray unremarkable and CTA of the chest was obtained to rule out aortic dissection unfortunately the procedure was performed as a PE protocol and was unable to be diagnostic for aortic dissection. No evidence of PE was noted. Patient was admitted for further evaluation. Troponins overnight have remained normal Echocardiogram this morning with preliminary results showing normal EF and no significant valve disease. Cardiology consulted for evaluation Discussed with Dr. Crocker and in light of no EKG changes, normal troponins, well-controlled blood pressure and diabetes in the setting of normal cardiac cath in 2017, would not pursue left heart catheterization at this time. [facility] Disclaimer: The information contained in this section may have been updated after the patient was seen, as this information can be updated by other users. 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/hazards: No caffeine: Yes Review of Systems Review of Systems Review of systems:: pertinent systems reviewed and negative unless documented below Eyes Eyes: Denies loss of vision *Cardiovascular Cardiovascular: Reports chest pain, Denies dyspnea and Denies syncope *Respiratory Respiratory: Denies cough and Denies dyspnea *Gastrointestinal Gastrointestinal: Denies abdominal pain, Denies heartburn, Denies nausea and Denies vomiting *Musculoskeletal Musculoskeletal: Reports numbness (Occasional, left arm) *Neurologic Neurologic: Reports system reviewed and no additional complaints, except as documented, Denies loss of vision, Reports numbness (Occasional, left arm) and Denies syncope Exam Data for Last 24 hours Vital signs and Labs for Last 24 Hours: Temp Pulse Resp BP Pulse Ox 98.4 F 55 L 18 107/48 L 96 02/09/23 07:19 02/09/23 07:19 02/09/23 07:19 02/09/23 07:19 02/09/23 07:19 Laboratory Results - last 24 hr 02/08/23 13:44: SARS-CoV-2 (PCR) Not detected, Influenza A Untype (PCR) Not detected, Influenza Type B (PCR) Not detected 02/08/23 13:45: WBC 6.9, RBC 5.67 H, Hgb 13.8, Hct 43.0, MCV 75.8 L, MC
[2023-02-09 09:28] LABS: Amylase 45 U/L (30-110); Lipase 62 U/L (23-300)
--- NOTE | 2023-02-09 11:05 | CT_ITS ---
FINAL REPORT TECHNIQUE: Thin section axial CT with contrast with multiplanar reconstruction CLINICAL HISTORY: chest pain FINDINGS: Pulmonary vessels enhance in normal fashion without evidence of embolism. Thoracic aorta shows no dissection or aneurysm. No pulmonary mass or infiltrate is present. There is no significant pleural effusion. There is no significant pericardial effusion. No mediastinal or hilar adenopathy is present. IMPRESSION: 1. No evidence of pulmonary embolism or aortic dissection. Reviewed, Interpreted and Dictated by Christophe Lugo MD Transcribed by Jalil Burns Authenticated and [facility]
[2023-02-09 11:11] LABS: POC Glucose,Bedside 147 (70-110)
--- NOTE | 2023-02-09 11:18 | EXP.DC.SUM ---
General Admission date:: 02/08/23 Discharge date: 02/09/23 HPI HPI HPI: Ms. Leija is a 52-year-old female with a past medical history of DM, Hyperlipidemia, Obesity, Fibromyalgia, Neuropathies. She presents to [facility] due to a 1-day history of left sternal chest pain with radiation to the left arm and upper back associated with nausea, no shortness of air. In the ER, the patient underwent an EKG that showed NSR with no ST segment elevation or depression, rate 72. Troponin was <0.01 x 2. CTA and Cxray preliminary showed no acute changes. Covid and Flu testing were negative. CBC and CMP were unremarkable. The patient was admitted with initial impression: Chest Pain, Cardiology has been consulted, she will be monitored on telemetry overnight. Echo is ordered for the am. Hospital Course Hospital Course Hospital Course: 52-year-old female with past medical history of DM, Hyperlipidemia, Obesity presents with 1-day history of left sided chest pain with radiation to left arm and back - Chest Pain EKG showed NSR with no ST segment elevation or depression. Troponin <0.01 x 2. Cxray and CTA with no acute findings. Negative fro PE and aneurysn or dissection after repeating CTA with appropriate timing of contrast. No acute events on telemetry overnight. Cardiology consulted during admission. No intervention given negative troponins, previous cath with clean coronaries. Echo obtained essentially normal. - Diabetes: Sliding Scale insulin during admission. A1c 6.3. Resume home regimen. - Diabetic Neuropathy: Pregabalin - Migraine: Ubrelvy as needed Stable for DC home. Recommend further work up for non cardiac cause of chest pain as an out patient. Exam Data for Last 24 hours Vital signs and Labs for Last 24 Hours: Temp Pulse Resp BP Pulse Ox 98.4 F 55 L 18 107/48 L 96 02/09/23 07:19 02/09/23 07:19 02/09/23 07:19 02/09/23 07:19 02/09/23 07:19 Laboratory Results - last 24 hr 02/08/23 13:44: SARS-CoV-2 (PCR) Not detected, Influenza A Untype (PCR) Not detected, Influenza Type B (PCR) Not detected 02/08/23 13:45: WBC 6.9, RBC 5.67 H, Hgb 13.8, Hct 43.0, MCV 75.8 L, MCH 24.4 L, MCHC 32.2, RDW 15.9, Plt Count 181, MPV 7.8, Neut % (Auto) 55.5, Lymph % (Auto) 35.3, Millard % (Auto) 6.0, Eos % (Auto) 2.0, Baso % (Auto) 1.3, Neut # (Auto) 3.8, Lymph # (Auto) 2.4, Millard # (Auto) 0.4, Eos # (Auto) 0.1, Baso # (Auto) 0.1 02/08/23 13:45: PT 10.9, INR 1.01 02/08/23 13:45: Sodium 141, Potassium 4.0, Chloride 101, Carbon Dioxide 32 H, Anion Gap 12.0, BUN 12, Creatinine 0.80, Estimated Creat Clear 125, Estimated GFR 76, Est GFR ( Amer) 92, Glucose 142 H, Calcium 9.1, Total Bilirubin 0.5, AST 46 H, ALT 39, Alkaline Phosphatase 119, Troponin I < 0.01, Total Protein 7.6, Albumin 4.2, Globulin 3.4 H, Albumin/Globulin Ratio 1.2 02/08/23 13:52: POC Glucose 141 H 02/08/23 16:27: Troponin I < 0.01 02/08/23 19:45: Troponin I < 0.01 02/08/23 20:09: POC Glucose 160 H 02/09/23 06:08: POC Glucose 116 H 02/09/23 06:40: Triglycerides 303 H, Cholesterol 133 L, LDL Cholesterol Direct 62.74 L, VLDL Cholesterol 61 H, HDL Cholesterol 26 L, Cholesterol/HDL Ratio 5.1 H 02/09/23 06:40: WBC 5.3, RBC 4.61, Hgb 11.6 L D, Hct 35.6 L, MCV 77.0 L, MCH 25.1 L, MCHC 32.6, RDW 16.0, Plt Count 144, MPV 7.4, Neut % (Auto) 47.1, Lymph % (Auto) 42.4, Millard % (Auto) 6.2, Eos % (Auto) 3.2, Baso % (Auto) 1.0, Neut # (Auto) 2.5, Lymph # (Auto) 2.3, Millard # (Auto) 0.3, Eos # (Auto) 0.2, Baso # (Auto) 0.1 02/09/23 06:40: Sodium 142, Potassium 3.8, Chloride 106, Carbon Dioxide 31 H, Anion Gap 8.8, BUN 8 D, Creatinine 0.80, Estimated Creat Clear 121, Estimated GFR 76, Est GFR ( Amer) 92, Glucose 121 H, Calcium 8.2 L 02/09/23 06:40: Amylase 45, Lipase 62 02/09/23 10:53: POC Glucose 147 H I & O for Last 24 hours: Intake & Output 02/06/23 02/07/23 02/08/23 02/09/23 23:59 23:59 23:59 23:59 Intake Total 1125 / 1125 0 / 0 Output Total 0 / 0 Balance
--- NOTE | 2023-02-09 15:02 | PC.NURSE ---
Pt. is astol, on ra, 20g L ac, had pain meds several times today, no other changes noted.
[2023-02-09 16:01] LABS: POC Glucose,Bedside 109 (70-110)
--- NOTE | 2023-02-09 16:15 | HMH.PHAINT1 ---
Pharmacy Intervention Comments: Discharge medication counseling completed. Patient was getting a script for ketorolac tabs (had received an IV dose during her stay). Told patient she could take a tablet three times a day as needed for pain. Said side effects may include stomach upset and it was best taken with food to avoid this. Confirmed that med was sent to the patient's preferred pharmacy. Patient verbalized understanding and had no questions.
--- NOTE | 2023-02-10 14:39 | CARE MANAGER ---
Spoke with patient for post-discharge phone interview, no issues noted.
== END 2023-02-09 17:59 | disposition home or self-care (01) ==
LOC: ER 17:04 → 2ND 17:54
PROVIDERS: Nurse Practitioner Critical Care Medicine; Nurse Practitioner Family; Physician Assistant; Admitting Provider Internal Medicine Adolescent Medicine; Emergency Provider Emergency Medicine; PCP Emergency Medicine; Visit Provider Internal Medicine Adolescent Medicine
DX: R07.9 Chest pain, unspecified (principal); Z87.891 Personal history of nicotine dependence; Z79.4 Long term (current) use of insulin; E11.40 Type 2 diabetes mellitus with diabetic neuropathy, unspecified; Z79.899 Other long term (current) drug therapy; E78.5 Hyperlipidemia, unspecified; G43.909 Migraine, unspecified, not intractable, without status migrainosus
CPT/HCPCS: 36415; 71045; 71275; 80048; 80053; 80061; 82150; 82962; 83690; 84484; 85025; 85610; 87635; 87636; 93005; 93306; 99285; C9803; G0378; J2405; Q9967; U0003; U0005

== ENCOUNTER → 2023-03-10 08:17 | Outpatient (CLI) | payer OTHER, SELFPAY ==
[2023-03-10 08:38] VITALS: BMI 36.0
[2023-03-10 08:47] VITALS: BP 119/77; PULSE 77; RESP 18; TEMP 37; O2SAT 94
[2023-03-10 08:53] LABS: POC Glucose,Bedside 192 (70-110)
[2023-03-10 09:01] LABS: Anion Gap 13.1 mEq/L (5-15); Blood Urea Nitrogen 16 mg/dl (7-17); Carbon Dioxide 32 mmol/L (22.0-30.0); Chloride 98 mmol/L (98-107); Creatinine Clearance Estimated 101 mL/min (50-200); Estimated Glomerular Filt Rate 59 ml/min (>60); GFR (African American) 71 ML/MIN (>60); Glucose 196 mg/dl (74-100); Potassium 3.1 mmoL/L (3.5-5.1); Sodium 140 mmol/L (136-145)
[2023-03-10 09:24] VITALS: BP 134/88; PULSE 67; RESP 18; O2SAT 96
--- NOTE | 2023-03-10 09:24 | PC.NURSE ---
Arrived to CT room, pt supine on table. No C/O, VSS.
[2023-03-10 09:38] VITALS: BP 109/62; PULSE 67; RESP 18
--- NOTE | 2023-03-10 09:38 | PC.NURSE ---
Scan complete. VSS, no C/O.
== END ==
PROVIDERS: PCP Emergency Medicine; Visit Provider Nurse Practitioner Family
DX: R07.9 Chest pain, unspecified (principal); E11.9 Type 2 diabetes mellitus without complications; E66.9 Obesity, unspecified; E78.2 Mixed hyperlipidemia; I27.20 Pulmonary hypertension, unspecified; I50.32 Chronic diastolic (congestive) heart failure; Z79.4 Long term (current) use of insulin
CPT/HCPCS: 75574; 80048; 82962; Q9967

== ENCOUNTER → 2023-08-12 14:45 | Outpatient (CLI) | payer BC, SELFPAY ==
--- NOTE | 2023-08-12 14:52 | MM_ITS ---
PROCEDURE INFORMATION: Exam: MG Bilateral Screening 3D Mammography Exam date and time: 08/12/2023 2:50 PM Age: 53 years old Clinical indication: Screening. A paternal aunt had breast cancer. TECHNIQUE: Imaging protocol: Bilateral Screening tomosynthesis and 2D mammography including computer-aided detection (CAD) when performed. COMPARISON: 1. MG MM DIG SCREENING MAMM BI W/CAD 06/29/2022 7:58 AM 2. MG MM DIG SCREENING MAMM BI W/CAD 05/23/2021 8:48 AM 3. MG MM DIG SCREENING MAMM BI W/CAD 05/21/2020 8:21 AM 4. MG MM DIG SCREENING MAMM BI W/CAD 05/18/2019 9:28 AM FINDINGS: MAMMOGRAPHY: Breast composition: There are scattered areas of fibroglandular density. Mass: None. Architectural distortion: None. Calcifications: No suspicious calcifications. Asymmetric density: None. Skin thickening: None. Axillary adenopathy: None. IMPRESSION: No mammographic evidence of malignancy. Annual screening is recommended unless otherwise clinically indicated. ASSESSMENT: BI-RADS Category 1: Negative
== END ==
PROVIDERS: PCP Emergency Medicine; Visit Provider Nurse Practitioner Obstetrics & Gynecology
DX: Z12.31 Encounter for screening mammogram for malignant neoplasm of breast (principal)
CPT/HCPCS: 77063; 77067

== ENCOUNTER 2023-08-12 15:15 | Emergency (ER) | payer BC, SELFPAY ==
[2023-08-12 15:20] VITALS: BP 145/80; PULSE 70; RESP 18; TEMP 36.8; O2SAT 97; BMI 31.8
--- NOTE | 2023-08-12 15:39 | EXP.UTC ---
Discharge Plan Disposition Patient Disposition: Home, Self-Care Condition: Good Prescriptions Prescriptions: New ondansetron 4 mg Tablet,Disintegrating 4 mg PO Q8H PRN (Reason: Nausea) Qty: 12 0RF promethazine 25 mg tablet 25 mg PO TID PRN (Reason: nausea and vomiting) Qty: 20 0RF No Action lidocaine 5 % adhesive patch,medicated 1 patch topical DAILY pregabalin 150 mg capsule 150 mg PO BID Qty: 60 2RF spironolactone [Aldactone] 50 mg tablet 50 mg PO DAILY Qty: 30 5RF amoxicillin-pot clavulanate 875-125 mg tablet 1 tab PO BID 10 Days Qty: 20 0RF (DME) Dexcom G6 Envelope Patternmaker Misc See Rx Instructions .Route Qty: 1 0RF Rx Instructions: As directed (DME) Dexcom G6 Transmitter Device See Rx Instructions .Route Qty: 1 0RF Rx Instructions: As directed Jardiance 10 mg tablet 10 mg PO DAILY Qty: 90 3RF furosemide 80 mg tablet See Rx Instructions .ROUTE .COMPLEX Qty: 30 2RF Dose Instruction: TAKE ONE TABLET BY MOUTH ONCE A DAY FOR DIURETIC Rx Instructions: TAKE ONE TABLET BY MOUTH ONCE A DAY FOR DIURETIC (DME) Dexcom G6 Sensor Device See Rx Instructions .ROUTE .COMPLEX Qty: 3 2RF Dose Instruction: USE DIRECTED Rx Instructions: USE DIRECTED ergocalciferol (vitamin D2) 1,250 mcg (50,000 unit) capsule See Rx Instructions .ROUTE .COMPLEX Qty: 4 2RF Dose Instruction: TAKE ONE CAPSULE BY MOUTH ONCE A WEEK Rx Instructions: TAKE ONE CAPSULE BY MOUTH ONCE A WEEK duloxetine 20 mg capsule,delayed release(DR/EC) See Rx Instructions .ROUTE .COMPLEX Qty: 60 2RF Dose Instruction: TAKE ONE CAPSULE BY MOUTH 2 TIMES A DAY FOR FIBROMYALGIA Rx Instructions: TAKE ONE CAPSULE BY MOUTH 2 TIMES A DAY FOR FIBROMYALGIA glipizide 10 mg tablet extended release 24hr See Rx Instructions .ROUTE .COMPLEX Qty: 180 0RF Dose Instruction: TAKE TWO TABLETS BY MOUTH ONCE A DAY Rx Instructions: TAKE TWO TABLETS BY MOUTH ONCE A DAY simvastatin 5 mg tablet See Rx Instructions .ROUTE .COMPLEX Qty: 30 2RF Dose Instruction: TAKE ONE TABLET BY MOUTH EVERY EVENING Rx Instructions: TAKE ONE TABLET BY MOUTH EVERY EVENING zolpidem 10 mg tablet 10 mg PO HS Qty: 30 0RF Ozempic 2 mg/dose (8 mg/3 mL) pen injector See Rx Instructions .ROUTE .COMPLEX Qty: 3 0RF Dose Instruction: INJECT 2 MG SUBCUTANEOUSLY EVERY WEEK Rx Instructions: INJECT 2 MG SUBCUTANEOUSLY EVERY WEEK Jardiance 10 mg tablet 10 mg PO DAILY Ubrelvy 100 mg tablet 100 mg PO DAILYP PRN (Reason: Migraine Headache) omeprazole 40 mg capsule,delayed release(DR/EC) 40 mg PO DAILY Rx Instructions: TAKE ONE CAPSULE BY MOUTH ONCE A DAY prochlorperazine maleate [Compazine] 10 mg tablet 10 mg PO Q6H PRN (Reason: nausea and vomiting) Qty: 30 0RF Referrals Follow up/Referrals: Norma Jimenez PA [Primary Care Provider] - See instructions Activity Restrictions/Add. Instructions Additional Instructions/Restrictions: Drink plenty of fluids. Take tylenol for pain or fever. Take the medications as directed. Follow up with your regular doctor. GO TO THE ER FOR ANY WORSENING SYMPTOMS Return a stool sample so it can be analyzed for different infections. Clinical Impressions Clinical Impression: Diarrhea, Nausea & vomiting Instructions Patient Instructions: DI for Viral Gastroenteritis -- Adult Discharge ED Provider: Conrad Hernandez [facility] HPI General Stated complaint: diarrhea, vomiting, Time Seen by Provider: 08/12/23 15:39 History of Present Illness Provider Complaint: She states that for the past 5 days she has had n/v/d. The last time she vomited was last night. She has continued to have diarrhea multiple times today. She denies abdominal pain, but she has had cramping at times. She denies any fever/chills. Related Data Home Medications Me
[2023-08-12 15:40] LABS: Apearance,Urine Clear (Clear); Color,Urine Dark Yellow (Yellow); PH,Urine 5.5 (5.0-8.5)
[2023-08-12 15:41] LABS: Bilirubin,Urine 1+ (Negative); Blood, Urine Trace (Negative); Glucose,Urine (UA) Negative (Negative); Ketones,Urine Negative (Negative); Protein,Urine 1+ (Negative); UTC Leukocyte Esterase,Urine Negative (Negative); UTC Nitrate,Urine Negative (Negative); Urobilinogen,Urine 0.2 EU/dl (0.2)
[2023-08-12 16:23] LABS: Basophils # 0.1 K/mm3 (0-0.2); Basophils % 1.3 % (0.1-2.0); Chloride 99 mmol/L (98-107); Eosinophils # 0.2 K/mm3 (0.0-0.4); Eosinophils % 3.2 % (0.1-12.0); Hematocrit 40.7 % (37.0-47.0); Hemoglobin 14.9 g/dL (12.2-16.2); Lymphocytes # 2.5 K/mm3 (0.7-4.5); Lymphocytes % 39.4 % (10-50); Mean Corpuscular HGB Conc 36.6 g/dL (31.8-35.4); Mean Corpuscular Hemoglobin 27.6 pg (27.0-31.2); Mean Corpuscular Volume 75.2 fl (81-99); Mean Platelet Volume 8.6 fl (7.4-10.4); Monocytes # 0.4 K/mm3 (0.1-1.0); Monocytes % 6.2 % (1.7-9.3); Neutrophils # 3.1 K/mm3 (1.8-7.8); Neutrophils % 49.9 % (37.0-80.0); Platelet Count 186 K/mm3 (142-424); Potassium 3.1 mmoL/L (3.5-5.1); Red Blood Count 5.41 M/mm3 (4.20-5.40); Sodium 139 mmol/L (136-145); White Blood Count 6.3 K/mm3 (4.8-10.8)
[2023-08-12 16:26] LABS: Alanine Aminotransferase 67 U/L (12-78); Albumin Level 4.7 g/dl (3.5-5.0); Albumin/Globulin Ratio 1.3 (1.1-1.8); Alkaline Phosphatase 96 U/L (38-126); Anion Gap 12.1 mEq/L (5-15); Aspartate Amino Transferase 67 U/L (14-36); Bilirubin,Total 0.9 mg/dl (0.2-1.3); Blood Urea Nitrogen 10 mg/dl (7-17); Calcium 9.4 mg/dl (8.4-10.2); Carbon Dioxide 31 mmol/L (22.0-30.0); Creatinine Clearance Estimated 130 mL/min (50-200); Estimated Glomerular Filt Rate 88 ml/min (>60); GFR (African American) 107 ML/MIN (>60); Globulin 3.7 g/dL (1.3-3.2); Glucose 174 mg/dl (74-100); Total Protein,Serum 8.4 g/dl (6.3-8.2)
[2023-08-12 17:27] VITALS: BP 145/80; PULSE 70; RESP 18; TEMP 36.8; O2SAT 97
== END 2023-08-12 17:27 | disposition home or self-care (01) ==
PROVIDERS: Emergency Provider Nurse Practitioner Family; PCP Physician Assistant
DX: E87.6 Hypokalemia (principal); R19.7 Diarrhea, unspecified; R11.2 Nausea with vomiting, unspecified; R10.819 Abdominal tenderness, unspecified site; E11.40 Type 2 diabetes mellitus with diabetic neuropathy, unspecified; E78.5 Hyperlipidemia, unspecified; K21.9 Gastro-esophageal reflux disease without esophagitis; Z79.84 Long term (current) use of oral hypoglycemic drugs; Z79.85 Long-term (current) use of injectable non-insulin antidiabetic drugs
CPT/HCPCS: 80053; 81003; 85025; 87086; 96365; 99212; 99214; G0463

== ENCOUNTER → 2023-08-14 20:19 | Outpatient (CLI) | payer BC, SELFPAY ==
[2023-08-14 20:30] LABS: Adenovirus F 40/41, stool Not Detected (NotDetected); Astrovirus Not Detected (NotDetected); Campylobacter Not Detected (NotDetected); Clostridium Difficile A/B, PCR Not Detected (NotDetected); Cryptosporidium Not Detected (NotDetected); Cyclospora Cayetanesis Not Detected (NotDetected); Entamoeba histolytica Not Detected (NotDetected); Enteroaggregative E coli Not Detected (NotDetected); Enteropathogenic E coli Not Detected (NotDetected); Enterotoxigenic E coli Not Detected (NotDetected); Giardia lamblia Not Detected (NotDetected); Norovirus Not Detected (NotDetected); Plesimonas Shigalloides, PCR Not Detected (NotDetected); Rotavirus A Not Detected (NotDetected); Salmonella, PCR Not Detected (NotDetected); Sapovirus Not Detected (NotDetected); Shiga-like toxin E coli Not Detected (NotDetected); Shigella Enterovasive E coli Not Detected (NotDetected); Vibrio Cholerae Not Detected (NotDetected); Vibrio, PCR Not Detected (NotDetected); Yersinia Entercolitica, PCR Not Detected (NotDetected)
== END ==
PROVIDERS: PCP Nurse Practitioner Family; Visit Provider Nurse Practitioner Family
DX: R19.7 Diarrhea, unspecified (principal); R11.2 Nausea with vomiting, unspecified
CPT/HCPCS: 87507

== ENCOUNTER 2023-08-18 21:02 | Emergency (ER) | payer BC, SELFPAY ==
[2023-08-18] VITALS (7 sets, daily range): BP systolic 116–158; BP diastolic 68–90; PULSE 58–68; RESP 16–20; TEMP 36.8; O2SAT 97–99; BMI 32.3
--- NOTE | 2023-08-18 21:20 | ECG_ITS ---
APPROVED REPORT Exam: Resting ECG HR:65 bpm ECG Measurements Heart Rate 65 AXES FL 175 P 68 QRSd 108 QRS 75 QT 452 T 16 QTc 463 Conclusion SINUS RHYTHM NORMAL ECG UNCONFIRMED REPORT Electronically signed by : Milo Cordoba MD 08/19/2023 14:48:18
[2023-08-18 21:25] LABS: Basophils # 0.1 K/mm3 (0-0.2); Basophils % 1.6 % (0.1-2.0); Eosinophils # 0.2 K/mm3 (0.0-0.4); Eosinophils % 2.5 % (0.1-12.0); Hematocrit 47.6 % (37.0-47.0); Hemoglobin 15.9 g/dL (12.2-16.2); Lymphocytes # 2.5 K/mm3 (0.7-4.5); Lymphocytes % 34.5 % (10-50); Mean Corpuscular HGB Conc 33.3 g/dL (31.8-35.4); Mean Corpuscular Hemoglobin 25.3 pg (27.0-31.2); Mean Corpuscular Volume 75.9 fl (81-99); Mean Platelet Volume 8.2 fl (7.4-10.4); Monocytes # 0.4 K/mm3 (0.1-1.0); Neutrophils # 4.1 K/mm3 (1.8-7.8); Neutrophils % 56.5 % (37.0-80.0); Platelet Count 209 K/mm3 (142-424); Red Blood Count 6.28 M/mm3 (4.20-5.40); Red Cell Distribution Width 15.9 % (11.5-17.5); White Blood Count 7.3 K/mm3 (4.8-10.8)
--- NOTE | 2023-08-18 21:27 | HMH.EDGENADL ---
Discharge Plan Disposition Patient Disposition: Home, Self-Care Chief Complaint: Nausea/Vomiting/Diarrhea Prescriptions Prescriptions: New potassium citrate 15 mEq tablet extended release 15 meq PO TID Qty: 9 0RF ondansetron HCl 4 mg tablet 4 mg PO Q8H PRN (Reason: nausea and vomiting) 5 Days Qty: 30 0RF No Action lidocaine 5 % adhesive patch,medicated 1 patch topical DAILY terconazole 0.8 % cream 1 appful vaginal HS Qty: 20 4RF pregabalin 150 mg capsule 150 mg PO BID Qty: 60 2RF (DME) Dexcom G6 Gate Keeper Misc See Rx Instructions .Route Qty: 1 0RF Rx Instructions: As directed (DME) Dexcom G6 Transmitter Device See Rx Instructions .Route Qty: 1 0RF Rx Instructions: As directed Jardiance 10 mg tablet 10 mg PO DAILY Qty: 90 3RF furosemide 80 mg tablet See Rx Instructions .ROUTE .COMPLEX Qty: 30 2RF Dose Instruction: TAKE ONE TABLET BY MOUTH ONCE A DAY FOR DIURETIC Rx Instructions: TAKE ONE TABLET BY MOUTH ONCE A DAY FOR DIURETIC (DME) Dexcom G6 Sensor Device See Rx Instructions .ROUTE .COMPLEX Qty: 3 2RF Dose Instruction: USE DIRECTED Rx Instructions: USE DIRECTED ergocalciferol (vitamin D2) 1,250 mcg (50,000 unit) capsule See Rx Instructions .ROUTE .COMPLEX Qty: 4 2RF Dose Instruction: TAKE ONE CAPSULE BY MOUTH ONCE A WEEK Rx Instructions: TAKE ONE CAPSULE BY MOUTH ONCE A WEEK duloxetine 20 mg capsule,delayed release(DR/EC) See Rx Instructions .ROUTE .COMPLEX Qty: 60 2RF Dose Instruction: TAKE ONE CAPSULE BY MOUTH 2 TIMES A DAY FOR FIBROMYALGIA Rx Instructions: TAKE ONE CAPSULE BY MOUTH 2 TIMES A DAY FOR FIBROMYALGIA glipizide 10 mg tablet extended release 24hr See Rx Instructions .ROUTE .COMPLEX Qty: 180 0RF Dose Instruction: TAKE TWO TABLETS BY MOUTH ONCE A DAY Rx Instructions: TAKE TWO TABLETS BY MOUTH ONCE A DAY simvastatin 5 mg tablet See Rx Instructions .ROUTE .COMPLEX Qty: 30 2RF Dose Instruction: TAKE ONE TABLET BY MOUTH EVERY EVENING Rx Instructions: TAKE ONE TABLET BY MOUTH EVERY EVENING zolpidem 10 mg tablet 10 mg PO HS Qty: 30 0RF Ozempic 2 mg/dose (8 mg/3 mL) pen injector See Rx Instructions .ROUTE .COMPLEX Qty: 3 0RF Dose Instruction: INJECT 2 MG SUBCUTANEOUSLY EVERY WEEK Rx Instructions: INJECT 2 MG SUBCUTANEOUSLY EVERY WEEK promethazine 25 mg tablet 25 mg PO TID PRN (Reason: nausea and vomiting) Qty: 20 0RF Ubrelvy 100 mg tablet 100 mg PO DAILYP PRN (Reason: Migraine Headache) omeprazole 40 mg capsule,delayed release(DR/EC) 40 mg PO DAILY Rx Instructions: TAKE ONE CAPSULE BY MOUTH ONCE A DAY Referrals Follow up/Referrals: Davis Hirsch DO [Primary Care Provider] - See instructions Activity Restrictions/Add. Instructions Additional Instructions/Restrictions: Please take potassium supplementation for the next couple of days. Consider Zofran as needed for nausea and vomiting. Please follow-up with your PCP next week for reassessment. Please return to the ER for any new or worsening symptoms or if you become concerned for your health. Clinical Impressions Clinical Impression: Vomiting, Diarrhea, Acute hypokalemia Instructions Patient Instructions: DI for Diarrhea and Traveler's Diarrhea -- Adult, DI for Diarrhea and Traveler's Diarrhea -- Child, DI for Nausea -- Adult, DI for Nausea -- Child Discharge ED Provider: Isaías Erwin General Adult HPI <Isaías Erwin MD - Last Filed: 08/18/23 23:09> General Chief complaint: Nausea/Vomiting/Diarrhea Stated complaint: vomiting Time Seen by Provider: 08/18/23 21:20 Mode of Arrival: Ambulatory Source of Information: Patient Limitations: No Limitations Description of Symptoms (Recalled from ER Triage Doc. by RN): Pt c/o N/V/D X2 weeks. Pt states she was seen in the [facility] last week and was given IV fluids. Pt h
[2023-08-18 21:29] LABS: Chloride 98 mmol/L (98-107)
[2023-08-18 21:30] LABS: Sodium 144 mmol/L (136-145)
[2023-08-18 21:32] LABS: Alanine Aminotransferase 44 U/L (12-78); Alkaline Phosphatase 109 U/L (38-126); Anion Gap 10.8 mEq/L (5-15); Aspartate Amino Transferase 54 U/L (14-36); Bilirubin,Total 0.8 mg/dl (0.2-1.3); Blood Urea Nitrogen 9 mg/dl (7-17); Carbon Dioxide 38 mmol/L (22.0-30.0); Creatinine Clearance Estimated 103 mL/min (50-200); Estimated Glomerular Filt Rate 66 ml/min (>60); GFR (African American) 80 ML/MIN (>60); Glucose 103 mg/dl (74-100); Lipase 172 U/L (23-300)
[2023-08-18 21:33] LABS: Albumin Level 5.1 g/dl (3.5-5.0); Albumin/Globulin Ratio 1.2 (1.1-1.8); Calcium 9.5 mg/dl (8.4-10.2); Globulin 4.1 g/dL (1.3-3.2); Total Protein,Serum 9.2 g/dl (6.3-8.2)
[2023-08-18 21:34] LABS: Potassium 2.8 mmoL/L (3.5-5.1)
[2023-08-18 21:41] LABS: Microscopic, Urine URINE MICROSCOPIC (MICROSCOPIC)
[2023-08-18 21:42] LABS: Appearance,Urine CLEAR (Clear); Bilirubin,Urine Negative (Negative); Blood, Urine Negative (Negative); Color,Urine YELLOW (Yellow); Glucose,Urine (UA) 2+ (Negative); Ketones,Urine Negative (Negative); Leukocyte Esterase,Urine TRACE (Negative); Nitrate,Urine Negative (Negative); Protein,Urine Negative (Negative); Urobilinogen,Urine 0.2 EU/dl (0.2)
[2023-08-18 21:51] LABS: Coronavirus 19, PCR Not Detected (NotDetected); Influenza A, PCR Not Detected (NotDetected); Influenza B, PCR Not Detected (NotDetected)
[2023-08-18 21:54] LABS: Squamous Epithelial Cell,Urine Occasional #/hpf (0-5); WBC,Urine Occasional #/hpf (0-3)
--- NOTE | 2023-08-18 22:22 | PC.NURSE ---
Rounded on pt at this time. Pt asleep in bed
--- NOTE | 2023-08-18 22:57 | PC.NURSE ---
Pt asleep in bed at this time
--- NOTE | 2023-08-18 23:29 | CT_ITS ---
PROCEDURE INFORMATION: Exam: CT Abdomen And Pelvis With Contrast Exam date and time: 08/18/2023 11:43 PM Age: 53 years old Clinical indication: Abdominal pain; Generalized; Additional info: Subacute vomiting, generalized pain TECHNIQUE: Imaging protocol: Computed tomography of the abdomen and pelvis with contrast. Radiation optimization: All CT scans at this facility use at least one of these dose optimization techniques: automated exposure control; mA and/or kV adjustment per patient size (includes targeted exams where dose is matched to clinical indication); or iterative reconstruction. Contrast material: ISOVUE; Contrast volume: 75 ml; Contrast route: IV; REPORTING DATA: Count of CT and Cardiac NM exams in prior 12 months: This patient has received 6 known CTs and 0 known cardiac nuclear medicine studies in the 12 months prior to the current study. COMPARISON: CT ABDOMEN PELVIS W CON 07/24/2022 1:16 AM FINDINGS: Liver: Hepatic steatosis. No mass. Gallbladder and bile ducts: Postsurgical changes of cholecystectomy. Pancreas: Mild fatty infiltration. No ductal dilation. Spleen: Stable splenomegaly. Adrenal glands: Normal. No mass. Kidneys and ureters: Stable subcentimeter hyperdense foci within the inferior pole. No hydronephrosis. Stomach and bowel: Mild fecalization of the terminal ileum. No obstruction. No mucosal thickening. Appendix: No evidence of appendicitis. Intraperitoneal space: Unremarkable. No free air. No significant fluid collection. Vasculature: Unremarkable. No abdominal aortic aneurysm. Lymph nodes: Unremarkable. No enlarged lymph nodes. Urinary bladder: Unremarkable as visualized. Reproductive: Postsurgical changes of hysterectomy. Bones/joints: Stable mild bilateral femoral head osteonecrosis. No acute fracture. Soft tissues: Right gluteal implantable neurostimulator device with leads terminating at the left sacral plexus. IMPRESSION: 1. No acute findings. 2. Mild fecalization of the terminal ileum indicative of delayed transit.
--- NOTE | 2023-08-18 23:43 | PC.NURSE ---
Pt to CT scan at this time
[2023-08-19] VITALS (9 sets, daily range): BP systolic 118–156; BP diastolic 72–92; PULSE 60–73; RESP 14–17; TEMP 36.8; O2SAT 94–99
--- NOTE | 2023-08-19 01:15 | PC.NURSE ---
Pt laying in bed, no needs voiced at this time.
[2023-08-19 03:07] LABS: Potassium 3.2 mmoL/L (3.5-5.1)
== END 2023-08-19 04:00 | disposition home or self-care (01) ==
PROVIDERS: Emergency Medicine; Emergency Provider Emergency Medicine; PCP Internal Medicine
DX: R11.2 Nausea with vomiting, unspecified (principal); R19.7 Diarrhea, unspecified; E87.6 Hypokalemia; E11.40 Type 2 diabetes mellitus with diabetic neuropathy, unspecified; E78.5 Hyperlipidemia, unspecified; R63.4 Abnormal weight loss
CPT/HCPCS: 74177; 80053; 81001; 83690; 84132; 85025; 87636; 93005; 96361; 96365; 96366; 96375; 99291; J1790; Q9967

== ENCOUNTER 2023-09-30 12:10 | Outpatient (CLI) | payer BC, SELFPAY ==
[2023-09-30 12:23] LABS: Basophils # 0.1 K/mm3 (0-0.2); Eosinophils # 0.2 K/mm3 (0.0-0.4); Hematocrit 43.8 % (37.0-47.0); Hemoglobin 15.7 g/dL (12.2-16.2); Lymphocytes # 2.5 K/mm3 (0.7-4.5); Lymphocytes % 37.9 % (10-50); Mean Corpuscular HGB Conc 35.9 g/dL (31.8-35.4); Mean Corpuscular Hemoglobin 27.5 pg (27.0-31.2); Mean Corpuscular Volume 76.5 fl (81-99); Mean Platelet Volume 8.6 fl (7.4-10.4); Monocytes # 0.4 K/mm3 (0.1-1.0); Monocytes % 5.6 % (1.7-9.3); Neutrophils # 3.4 K/mm3 (1.8-7.8); Neutrophils % 51.5 % (37.0-80.0); Platelet Count 175 K/mm3 (142-424); Red Blood Count 5.73 M/mm3 (4.20-5.40); Red Cell Distribution Width 16.5 % (11.5-17.5); White Blood Count 6.5 K/mm3 (4.8-10.8)
[2023-09-30 12:36] LABS: Chloride 97 mmol/L (98-107); Sodium 140 mmol/L (136-145)
[2023-09-30 12:38] LABS: Blood Urea Nitrogen 6 mg/dl (7-17); Estimated Glomerular Filt Rate 76 ml/min (>60); GFR (African American) 92 ML/MIN (>60)
[2023-09-30 12:39] LABS: Alanine Aminotransferase 47 U/L (12-78); Albumin Level 4.6 g/dl (3.5-5.0); Albumin/Globulin Ratio 1.4 (1.1-1.8); Alkaline Phosphatase 101 U/L (38-126); Anion Gap 15.8 mEq/L (5-15); Aspartate Amino Transferase 54 U/L (14-36); Bilirubin,Total 0.8 mg/dl (0.2-1.3); Carbon Dioxide 30 mmol/L (22.0-30.0); Cholesterol 156 mg/dl (140-200); Globulin 3.2 g/dL (1.3-3.2); Total Protein,Serum 7.8 g/dl (6.3-8.2); Triglycerides 311 mg/dl (30-150); VLDL Cholesterol 62 mg/dL (0-40)
[2023-09-30 12:40] LABS: Calcium 9.6 mg/dl (8.4-10.2); Chol/HDL Ratio 5.4 (1-3.5); Glucose 179 mg/dl (74-100); HDL Cholesterol 29 mg/dl (40-60)
[2023-09-30 12:52] LABS: Direct LDL Cholesterol 76.59 mg/dL (100-129)
[2023-09-30 12:55] LABS: 25-OH Vitamin D, Total 59.3 ng/mL (30-100)
[2023-09-30 13:12] LABS: Thyroid Stimulating Hormone 2.14 uIU/mL (0.465-4.68)
[2023-09-30 13:31] LABS: Vitamin B12 807 pg/mL (239-931)
[2023-09-30 14:05] LABS: Hemoglobin A1C 6.2 % (4.0-6.0)
[2023-09-30 14:36] LABS: Potassium 2.8 mmoL/L (3.5-5.1)
== END 2023-09-30 23:59 ==
LOC: LAB.DROPOF 12:11
PROVIDERS: PCP Family Medicine; Visit Provider Family Medicine
DX: R53.83 Other fatigue; H01.006 Unspecified blepharitis left eye, unspecified eyelid; E11.69 Type 2 diabetes mellitus with other specified complication; F32.9 Major depressive disorder, single episode, unspecified; F32.A Depression, unspecified; E87.6 Hypokalemia; Z79.84 Long term (current) use of oral hypoglycemic drugs; Z79.899 Other long term (current) drug therapy; E66.9 Obesity, unspecified; Z68.31 Body mass index [BMI] 31.0-31.9, adult
CPT/HCPCS: 80053; 80061; 82306; 82607; 83036; 84443; 85025

== ENCOUNTER 2023-10-29 15:47 | Outpatient (CLI) | payer BC, SELFPAY ==
[2023-10-29 16:24] LABS: Basophils # 0.1 K/mm3 (0-0.2); Basophils % 0.9 % (0.1-2.0); Eosinophils # 0.2 K/mm3 (0.0-0.4); Eosinophils % 3.2 % (0.1-12.0); Hematocrit 43.3 % (37.0-47.0); Hemoglobin 14.7 g/dL (12.2-16.2); Lymphocytes # 2.2 K/mm3 (0.7-4.5); Lymphocytes % 38.6 % (10-50); Mean Corpuscular Hemoglobin 26.9 pg (27.0-31.2); Mean Corpuscular Volume 79.2 fl (81-99); Mean Platelet Volume 8.4 fl (7.4-10.4); Monocytes # 0.4 K/mm3 (0.1-1.0); Neutrophils % 51.3 % (37.0-80.0); Platelet Count 176 K/mm3 (142-424); Red Blood Count 5.47 M/mm3 (4.20-5.40); Red Cell Distribution Width 16.2 % (11.5-17.5); White Blood Count 5.8 K/mm3 (4.8-10.8)
[2023-10-29 16:40] LABS: Erythrocyte Sedimentation Rate 32 mm/hr (0-30)
[2023-10-29 16:55] LABS: Alanine Aminotransferase 37 U/L (12-78); Albumin Level 4.5 g/dl (3.5-5.0); Albumin/Globulin Ratio 1.3 (1.1-1.8); Alkaline Phosphatase 104 U/L (38-126); Anion Gap 9.3 mEq/L (5-15); Aspartate Amino Transferase 46 U/L (14-36); Bilirubin,Total 0.9 mg/dl (0.2-1.3); Blood Urea Nitrogen 11 mg/dl (7-17); Calcium 9.3 mg/dl (8.4-10.2); Carbon Dioxide 37 mmol/L (22.0-30.0); Chloride 100 mmol/L (98-107); Estimated Glomerular Filt Rate 52 ml/min (>60); GFR (African American) 63 ML/MIN (>60); Globulin 3.4 g/dL (1.3-3.2); Glucose 136 mg/dl (74-100); Potassium 3.3 mmoL/L (3.5-5.1); Sodium 143 mmol/L (136-145); Total Protein,Serum 7.9 g/dl (6.3-8.2)
[2023-10-29 16:56] LABS: INR 1.07 (0.9-1.1); Prothrombin Time 11.5 seconds (10.1-12.5)
[2023-10-29 17:01] LABS: C-Reactive Protein 5.7 mg/L (0-4)
[2023-10-30 05:57] LABS: RA Latex Turbid. <10.0 IU/mL (<14.0)
[2023-10-30 16:35] LABS: Anti-Cyclic Citrullinated Pept 3 units (0-19)
[2023-11-01 15:11] LABS: Anti-Centromere B Antibodies <0.2 AI (0.0-0.9); Anti-DNA (DS) Ab Qn 27 IU/mL (0-9); Anti-Jo-1 <0.2 AI (0.0-0.9); Anti-Smith Antibody <0.2 AI (0.0-0.9); Antichromatin Antibodies 0.2 AI (0.0-0.9); Antiscleroderma-70 Antibodies <0.2 AI (0.0-0.9); RNP Antibodies <0.2 AI (0.0-0.9); Sjogren's Anti-SS-A 0.2 AI (0.0-0.9); Sjogren's Anti-SS-B <0.2 AI (0.0-0.9)
[2023-11-01 16:12] LABS: Hexagonal Phase Phospholipid 32 sec (0-11); Lupus Reflex Interpretation Comment: (.); PTT-LA 46.7 sec (0.0-43.5); PTT-LA Mix 44.2 sec (0.0-40.5); dRVVT 67.2 sec (0.0-47.0); dRVVT Confirm 1.7 ratio (0.8-1.2); dRVVT Mix 63.7 sec (0.0-40.4)
[2023-11-02 10:57] LABS: Alpha 2-Macroglobulins, Qn 205; Fibrosis Score 0.39; Fibrosis Stage F1-F2; Necroinflammat Activity Grade A0-A1
[2023-11-02 10:58] LABS: Apolipoprotein A-1 115; Bilirubin, Total 0.7; Haptoglobin 101
[2023-11-02 10:59] LABS: ALT (SGPT) P5P 34; GGT 54
== END 2023-10-29 23:59 ==
LOC: LAB 15:48
PROVIDERS: Nurse Practitioner; PCP Family Medicine; Visit Provider Family Medicine
DX: M79.7 Fibromyalgia (principal); K76.0 Fatty (change of) liver, not elsewhere classified; R79.82 Elevated C-reactive protein (CRP)
CPT/HCPCS: 36415; 80053; 81596; 85025; 85610; 85613; 85651; 86140; 86200; 86225; 86235; 86431

== ENCOUNTER 2023-11-08 08:07 | Outpatient (CLI) | payer BC, SELFPAY ==
--- NOTE | 2023-11-08 08:13 | US_ITS ---
FINAL REPORT CLINICAL HISTORY: evaluate extent liver fibrosis COMPARISON: None FINDINGS: Sonographic images of the right upper quadrant were obtained. The pancreas is partially obscured. There is diffuse increased echogenicity in the liver consistent with fatty infiltration of the liver. Borderline hepatomegaly is present. The gallbladder has been surgically resected. There is no evidence of biliary ductal dilatation.The common duct measures 4mm. Limited images of the right kidney are unremarkable. IMPRESSION: Fatty infiltration of the liver, with borderline hepatomegaly. Prior cholecystectomy without evidence of biliary ductal dilatation. Reviewed, Interpreted and Dictated by Vernon Yates III, MD Transcribed by Mague Sun Authenticated and [facility]
--- NOTE | 2023-11-08 08:13 | FL_ITS ---
FINAL REPORT CLINICAL HISTORY: abd pain, nausea Dap 4762.82 5.28 min FINDINGS: UPPER GI SBFT HISTORY: Acute generalized abdominal pain. PROCEDURE: The patient ingested barium. Effervescent crystals were also administered. Spot and overhead films were obtained. Number of images: 37 Fluoro time: 5 minutes 28 seconds DAP: 4762.8 to [id number]. FINDINGS: No esophageal stricture is identified. A 13 mm barium tablet passed through the esophagus into the stomach without delay. There is no hiatal hernia. There is no gastroesophageal reflux. Esophageal dysmotility is within normal limits. There is debris within the stomach. There is questionable loss of the rugae of the antrum of the stomach which is obscured by debris. The stomach empties appropriately and the duodenum is unremarkable. There are no abnormally dilated loops of bowel. Mucosal fold pattern of the small bowel is within normal limits. There is normal transit time to the colon. IMPRESSION: Esophageal dysmotility. Debris within the stomach. Possible loss of rugae within the antrum of the stomach. Endoscopic correlation is suggested. Unremarkable small bowel follow-through. Films reviewed , interpreted and dictated by Dr. Yates. Transcribed by Jarrett Fountain PA-C. Reviewed, Interpreted and Dictated by Vernon Yates III, MD Transcribed by HELEN Carlisle Authenticated and [facility]
[2023-11-08] MEDS: BARIUM SULFATE (E-Z-HD 340GM);135ML BOTTLE 135 ML PO (09:32)
[2023-11-08] MEDS: DIATRIZOATE MEG 66% & DIATRIZOATE NA 10% 30ML UDC 15 ML PO (09:32)
[2023-11-08] MEDS: BARIUM SULFATE(LIQUID E-Z-PAQUE);355ML BOTTLE 355 ML PO (09:32)
[2023-11-08] MEDS: E-Z-GASII EFFERVESCENT GRANULES;1PK 1 EACH PO (09:33)
== END 2023-11-08 23:59 ==
LOC: RAD 08:07
PROVIDERS: PCP Family Medicine; Visit Provider Nurse Practitioner
DX: K76.0 Fatty (change of) liver, not elsewhere classified (principal); R11.2 Nausea with vomiting, unspecified
CPT/HCPCS: 74246; 74248; 76705

== ENCOUNTER 2023-11-11 09:29 | Outpatient (CLI) | payer BC, SELFPAY ==
--- NOTE | 2023-11-11 09:30 | NM_ITS ---
FINAL REPORT TECHNIQUE: Sequential anterior images were obtained after the ingestion of 2 whole eggs, white toast with butter, and 6 ounce cup of water radiolabeled with 0.58 mCi technetium 99M sulfur colloid. CLINICAL HISTORY: evaluate gastric emptying time n/v 9:45 am .58 mci sulfur colloid injected into 2 whole eggs white toast with butter 6 oz cup of water FINDINGS: GASTRIC EMPTYING SCAN Static images show normal emptying of the stomach into the small bowel. Based on the time activity curve, the estimated half-emptying time is 40 minutes. IMPRESSION: Normal gastric emptying study. Reviewed, Interpreted and Dictated by Vernon Yates III, MD Transcribed by Fely Brown Authenticated and [facility]
[2023-11-11] MEDS: TC99M SULF.COLLOID;1 DOSE (UP TO 20 MCI) IV (10:38)
== END 2023-11-11 23:59 ==
LOC: RAD 09:30
PROVIDERS: PCP Family Medicine; Visit Provider Nurse Practitioner
DX: R11.10 Vomiting, unspecified (principal); R11.2 Nausea with vomiting, unspecified
CPT/HCPCS: 78264; A9541

== ENCOUNTER 2023-12-23 12:00 | Day surgery (SDC) | payer BC, SELFPAY ==
[2023-12-21 13:20] VITALS: BMI 32.5
[2023-12-23 12:17] VITALS: BP 109/65; PULSE 69; RESP 16; TEMP 36.1; O2SAT 98
[2023-12-23] MEDS: LACTATED RINGERS 1000ML 1,000 ML 25 ML IV (12:24)
[2023-12-23 12:29] LABS: POC Glucose,Bedside 107 (70-110)
--- NOTE | 2023-12-23 13:03 | P.PNANES_ITS ---
[facility] Disclaimer: The information contained in this section may have been updated after the patient was seen, as this information can be updated by other users. 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 Capsulitis of ankle Anterior pleuritic pain Neuropathy Obesity (BMI 30-39.9) Migraine Diabetes Fibromyalgia Surgical History History of cholecystectomy History of surgery History of surgery Status post surgical removal of nail matrix of toe History of partial hysterectomy H/O hysterectomy with oophorectomy Family History Other No significant family history Social History Smoking Status: Former smoker tobacco type: cigarettes years smoked: 25 second hand exposure: No alcohol intake: current counseling given: No substance use type: denies use counseling given: No (she might smoke a joint every now and then; when with her nephew) current occupational status: employed Travel in the last 8 weeks: None adopted: No caregiver/support person: Yes foster care: No household members: spouse housing: house lives independently: Yes marital status: number of children: 2 number of grandchildren: 7 education level: college current occupation: [employer] current occupational exposures/hazards: No Hx Recent Travel: No sexually active: Yes caffeine: Yes physical activity: none working smoke detector in home: Yes fire extinguisher in home: No carbon monox detector in home: Yes firearms in home: Yes firearms unloaded and locked: Yes do you feel safe at home: Yes victim of physical abuse: No victim of emotional abuse: No victim of sexual abuse: No would you like helpful sources: No [facility] Anesthesia Checklist Patient Identification Patient Identification: Arm Band and Verbal (Name & ) Structural Data Admitted From: Home Planned Operative Procedure/s: EGD Consent for Planned Operative Procedure(s) Verified: Yes NPO Status Verified Time NPO: 00:00 Additional verifications Anesthesia Reactions: No Hx Blood Transfusions: No Blood Transfusion Reaction: No Airway Assessment Mallampati Score:: Class II C-Spine Mobility Assessed: Yes TMJ Mobility Assessed: Yes Dentition: Dentures-good fit (Patient will keep dentures in due to exposed pins. Patient understands risks) Neurological Assessment Level of Consciousness: Awake Hx Seizures: No Numbness or tingling in extremities: No Anesthesia Plan Anesthesia Risk discussed: Yes Anesthesia Plan: Verified ASA Class: III Anesthesia Type: MAC
[2023-12-23 13:55] VITALS: O2SAT 98
--- NOTE | 2023-12-23 14:06 | HMH.SCOPE ---
Procedure: Date: 12/23/23 Patient Date of :: 1970 Procedure Performed:: Diagnostic EGD Indications:: Persistent Nausea/Vomiting Performing Provider:: Katelynn Benoit MD Referring Provider:: Carmen Benoit APRN Sedation:: Propofol Procedure:: The gastroscope was gently passed through the incisoral orifice into the oral cavity and under direct visualization the esophagus was intubated. The endoscope was passed down the esophagus, through the stomach, and into the duodenum. Color, texture, mucosa, and anatomy of the esophagus, stomach, and duodenum were carefully examined with the scope. Findings:: Oropharynx: normal Esophagus: normal EG Junction: intact at 40 cm Cardia: normal Fundus: normal Body: Filled with large amount of residual food materials Antrum: normal, no evidence of outlet obstruction Duodenal bulb: normal Duodenum (second and third portion): normal Impression: Marked diabetic gastroparesis exacerbated by Ozempic (GLP-1) Recommendations:: Needs to find alternatives to GLP-1 F/U GI clinic Complications:: None Estimated blood obtained (mL): 0 Colonoscopy Component Colonoscopy Component Was a colonoscopy performed during today's procedure?: No
[2023-12-23 14:09] VITALS: BP 79/39; PULSE 68; RESP 16; TEMP 36.3; O2SAT 92
[2023-12-23 14:19] VITALS: BP 99/63; PULSE 69; RESP 16; TEMP 36.3; O2SAT 93
[2023-12-23 14:29] VITALS: BP 108/64; PULSE 67; RESP 16; TEMP 36.3; O2SAT 98
[2023-12-23 14:39] VITALS: BP 98/62; PULSE 53; RESP 16; TEMP 36.3; O2SAT 97
== END 2023-12-23 15:00 | disposition home or self-care (01) ==
PROVIDERS: PCP Family Medicine; Visit Provider Internal Medicine Gastroenterology
PROC: 0DJ08ZZ Inspection of Upper Intestinal Tract, Via Natural or Artificial Opening Endoscopic (ICD-10-PCS; CPT 43235; principal; 2023-12-23 13:00)
DX: R11.2 Nausea with vomiting, unspecified (principal); E11.43 Type 2 diabetes mellitus with diabetic autonomic (poly)neuropathy; T38.3X5A Adverse effect of insulin and oral hypoglycemic [antidiabetic] drugs, initial encounter; Z79.85 Long-term (current) use of injectable non-insulin antidiabetic drugs
CPT/HCPCS: 43235; 82962

== ENCOUNTER 2024-01-13 11:42 | Outpatient (CLI) | payer BC, SELFPAY ==
[2024-01-13 12:15] LABS: INR 1.04 (0.9-1.1); Prothrombin Time 11.2 seconds (10.1-12.5)
[2024-01-13 16:06] LABS: Chloride 99 mmol/L (98-107); Sodium 141 mmol/L (136-145)
[2024-01-13 16:09] LABS: Alanine Aminotransferase 34 U/L (12-78); Albumin Level 4.5 g/dl (3.5-5.0); Albumin/Globulin Ratio 1.4 (1.1-1.8); Alkaline Phosphatase 109 U/L (38-126); Aspartate Amino Transferase 47 U/L (14-36); Bilirubin,Total 0.9 mg/dl (0.2-1.3); Blood Urea Nitrogen 10 mg/dl (7-17); Calcium 9.5 mg/dl (8.4-10.2); Carbon Dioxide 31 mmol/L (22.0-30.0); Estimated Glomerular Filt Rate 66 ml/min (>60); GFR (African American) 80 ML/MIN (>60); Globulin 3.2 g/dL (1.3-3.2); Glucose 128 mg/dl (74-100); Total Protein,Serum 7.7 g/dl (6.3-8.2)
[2024-01-13 16:10] LABS: Anion Gap 13.9 mEq/L (5-15)
[2024-01-13 16:11] LABS: Potassium 2.9 mmoL/L (3.5-5.1)
[2024-01-22 11:58] LABS: Fibrosis Score 0.33; Fibrosis Stage F1-F2; Steatosis Grade S2-S3; Steatosis Score 0.71
[2024-01-22 11:59] LABS: Alpha 2-Macroglobulins, Qn 211; NASH Grade N2-MODERATE NASH; NASH Score 0.65
[2024-01-22 12:00] LABS: Apolipoprotein A-1 120; Bilirubin, Total 0.5; Haptoglobin 91
[2024-01-22 12:01] LABS: GGT 44
[2024-01-22 12:05] LABS: ALT (SGPT) P5P 27; AST (SGOT) P5P 38
[2024-01-22 12:06] LABS: Cholesterol, Total 151; Glucose 131; Triglycerides 230
== END 2024-01-13 23:59 | disposition home or self-care (01) ==
LOC: LAB 11:45
PROVIDERS: PCP Family Medicine; Visit Provider Nurse Practitioner
DX: K76.0 Fatty (change of) liver, not elsewhere classified (principal); Z79.899 Other long term (current) drug therapy
CPT/HCPCS: 36415; 80053; 85610

== ENCOUNTER 2024-01-21 15:06 | Outpatient (CLI) | payer BC, SELFPAY ==
[2024-01-21 19:07] LABS: Alanine Aminotransferase 34 U/L (12-78); Albumin Level 4.2 g/dl (3.5-5.0); Albumin/Globulin Ratio 1.3 (1.1-1.8); Alkaline Phosphatase 116 U/L (38-126); Aspartate Amino Transferase 45 U/L (14-36); Bilirubin,Total 0.5 mg/dl (0.2-1.3); Blood Urea Nitrogen 8 mg/dl (7-17); Calcium 8.8 mg/dl (8.4-10.2); Carbon Dioxide 28 mmol/L (22.0-30.0); Chloride 99 mmol/L (98-107); Estimated Glomerular Filt Rate 76 ml/min (>60); GFR (African American) 92 ML/MIN (>60); Globulin 3.2 g/dL (1.3-3.2); Glucose 214 mg/dl (74-100); Sodium 142 mmol/L (136-145); Total Protein,Serum 7.4 g/dl (6.3-8.2)
[2024-01-21 19:09] LABS: Anion Gap 18.1 mEq/L (5-15); Potassium 3.1 mmoL/L (3.5-5.1)
== END 2024-01-21 23:59 | disposition home or self-care (01) ==
LOC: LAB.DROPOF 01-24 15:06
PROVIDERS: PCP Family Medicine; Visit Provider Family Medicine
DX: I50.32 Chronic diastolic (congestive) heart failure (principal)
CPT/HCPCS: 80053

== ENCOUNTER 2024-04-26 09:27 | Outpatient (CLI) | payer BC, SELFPAY ==
[2024-04-26 19:35] LABS: Alanine Aminotransferase 42 U/L (12-78); Albumin Level 4.3 g/dl (3.5-5.0); Albumin/Globulin Ratio 1.3 (1.1-1.8); Alkaline Phosphatase 103 U/L (38-126); Amylase 62 U/L (30-110); Anion Gap 14.5 mEq/L (5-15); Aspartate Amino Transferase 52 U/L (14-36); Bilirubin,Total 0.7 mg/dl (0.2-1.3); Blood Urea Nitrogen 11 mg/dl (7-17); Calcium 9.2 mg/dl (8.4-10.2); Carbon Dioxide 29 mmol/L (22.0-30.0); Chloride 99 mmol/L (98-107); Estimated Glomerular Filt Rate 76 ml/min (>60); GFR (African American) 92 ML/MIN (>60); Globulin 3.4 g/dL (1.3-3.2); Glucose 236 mg/dl (74-100); Lipase 254 U/L (23-300); Potassium 3.5 mmoL/L (3.5-5.1); Sodium 139 mmol/L (136-145); Total Protein,Serum 7.7 g/dl (6.3-8.2)
== END 2024-04-26 23:59 | disposition home or self-care (01) ==
LOC: LAB.DROPOF 04-27 09:28
PROVIDERS: PCP Family Medicine; Visit Provider Family Medicine
DX: K31.84 Gastroparesis (principal); K76.0 Fatty (change of) liver, not elsewhere classified
CPT/HCPCS: 80053; 82150; 83036; 83690

== ENCOUNTER 2024-06-06 17:52 | Emergency (ER) | payer BC, SELFPAY ==
[2024-06-06 17:53] VITALS: BP 142/80; PULSE 70; RESP 18; TEMP 36.6; O2SAT 96; BMI 32.5
[2024-06-06 18:00] VITALS: BP 139/85; PULSE 70; O2SAT 94
--- NOTE | 2024-06-06 18:00 | PC.NURSE ---
DR CAMPBELL AT BEDSIDE
--- NOTE | 2024-06-06 18:05 | HMH.EDGENADL ---
Discharge Plan Disposition Patient Disposition: Home, Self-Care Chief Complaint: Headache Prescriptions Prescriptions: No Action azelastine 137 mcg (0.1 %) aerosol,spray 1 spray intranasal BID Qty: 30 2RF Rx Instructions: administer into each nostril Ubrelvy 100 mg tablet 100 mg PO DAILYP PRN (Reason: Migraine Headache) Qty: 14 0RF bupropion HCl [Wellbutrin XL] 150 mg tablet extended release 24 hr 150 mg PO DAILY Qty: 30 1RF triamcinolone acetonide 0.1 % ointment 1 applic topical BID Qty: 30 0RF (DME) Dexcom G6 Collar Stay Fuser Tender Misc See Rx Instructions .Route Qty: 1 0RF Rx Instructions: As directed simvastatin 5 mg tablet See Rx Instructions .ROUTE .COMPLEX Qty: 90 2RF Dose Instruction: TAKE ONE TABLET BY MOUTH EVERY EVENING Rx Instructions: TAKE ONE TABLET BY MOUTH EVERY EVENING (DME) Dexcom G6 Transmitter Device See Rx Instructions .ROUTE .COMPLEX Qty: 1 0RF Dose Instruction: USE DIRECTED Rx Instructions: USE DIRECTED potassium chloride 20 mEq tablet,ER particles/crystals See Rx Instructions .ROUTE .COMPLEX Qty: 90 0RF Dose Instruction: TAKE ONE TABLET BY MOUTH ONCE A DAY Rx Instructions: TAKE ONE TABLET BY MOUTH ONCE A DAY omeprazole 40 mg capsule,delayed release(DR/EC) See Rx Instructions .ROUTE .COMPLEX Qty: 90 0RF Dose Instruction: TAKE 1 CAPSULE BY MOUTH ONCE A DAY Rx Instructions: TAKE 1 CAPSULE BY MOUTH ONCE A DAY furosemide 80 mg tablet See Rx Instructions .ROUTE .COMPLEX Qty: 90 0RF Dose Instruction: TAKE ONE TABLET BY MOUTH ONCE A DAY FOR DIURETIC Rx Instructions: TAKE ONE TABLET BY MOUTH ONCE A DAY FOR DIURETIC ergocalciferol (vitamin D2) 1,250 mcg (50,000 unit) capsule See Rx Instructions .ROUTE .COMPLEX Qty: 4 4RF Dose Instruction: TAKE ONE CAPSULE BY MOUTH ONCE A WEEK Rx Instructions: TAKE ONE CAPSULE BY MOUTH ONCE A WEEK glipizide 10 mg tablet extended release 24hr See Rx Instructions .ROUTE .COMPLEX Qty: 120 0RF Dose Instruction: TAKE TWO TABLETS BY MOUTH ONCE A DAY Rx Instructions: TAKE TWO TABLETS BY MOUTH ONCE A DAY pregabalin 150 mg capsule 150 mg PO BID Qty: 60 2RF zolpidem 10 mg tablet 10 mg PO HS Qty: 30 2RF (DME) Dexcom G6 Sensor Device See Rx Instructions .ROUTE .COMPLEX Qty: 3 0RF Dose Instruction: USE DIRECTED Rx Instructions: USE DIRECTED duloxetine 20 mg capsule,delayed release(DR/EC) See Rx Instructions .ROUTE .COMPLEX Qty: 60 0RF Dose Instruction: TAKE ONE CAPSULE BY MOUTH 2 TIMES A DAY FOR FIBROMYALGIA Rx Instructions: TAKE ONE CAPSULE BY MOUTH 2 TIMES A DAY FOR FIBROMYALGIA Jardiance 10 mg tablet See Rx Instructions .ROUTE .COMPLEX Qty: 90 0RF Dose Instruction: TAKE ONE TABLET BY MOUTH ONCE A DAY Rx Instructions: TAKE ONE TABLET BY MOUTH ONCE A DAY cyclobenzaprine 10 mg tablet See Rx Instructions .ROUTE .COMPLEX Qty: 30 0RF Dose Instruction: TAKE ONE TABLET BY MOUTH AT BEDTIME Rx Instructions: TAKE ONE TABLET BY MOUTH AT BEDTIME promethazine 12.5 mg tablet See Rx Instructions .ROUTE .COMPLEX Qty: 60 0RF Dose Instruction: TAKE ONE TABLET BY MOUTH 3 TIMES A DAYAS NEEDED FOR NAUSEA/VOMITING. LAST DOSE NO LATER THAN 4 HOURS BEFORE BEDTIME Rx Instructions: TAKE ONE TABLET BY MOUTH 3 TIMES A DAYAS NEEDED FOR NAUSEA/VOMITING. LAST DOSE NO LATER THAN 4 HOURS BEFORE BEDTIME Referrals Follow up/Referrals: Alissa Faria APRN [Primary Care Provider] - See instructions Activity Restrictions/Add. Instructions Additional Instructions/Restrictions: Call your family doctor to establish care for this visit to the emergency department and schedule follow-up within 48 hours to ensure improvement. If you have any worsening of your condition or any other concerning signs or symptoms, return to the emergency department or your primary care doctor for further evaluation. Clinical Impressions Clinical Impression: Migraine Qualifiers: Migraine type: unspecified Status migrainosus presence: with status migrainosus Intractability: intractable Qualified Code(s): G43.911 - Migraine, unspecified, intractable, with status migrainosus Print Language Print Language: Algerian Discharge ED Provider: Joseluis Borges General Adult HPI <HELEN Nunn - Last Filed: 06/06/24 18:07> General Chief complaint: Headache Stated complaint: headache Time Seen by Provider: 06/06/24 17:58 Mode of Arrival: Ambulatory Source of Information: Patient Limitations: No Limitations Description of Symptoms (Recalled from ER Triage Doc. by RN): Patient reports having a migraine that started yesterday. States she took Ubrevly with no results. Related Data Previous Rx's ?Medication ?Instructions ?Recorded blood-glucose meter,continuous #1 ea 04/30/23 (Dexcom G6 Collar Stay Fuser Tender) triamcinolone acetonide 0.1 % 1 applic topical BID #30 grams 10/27/23 topical ointment simvastatin 5 mg tablet See Rx Instructions .Route 12/20/23 .COMPLEX #90 tabs azelastine 137 mcg (0.1 %) nasal 1 spray intranasal BID #30 mL 01/21/24 spray ubrogepant 100 mg tablet (Ubrelvy) 100 mg PO DAILYP PRN Migraine 01/21/24 Headache #14 tabs blood-glucose transmitter (Dexcom #1 ea 03/14/24 G6 Transmitter device) potassium chloride 20 mEq See Rx Instructions .Route 03/15/24 tablet,extended release(part/cryst) .COMPLEX #90 tabs ergocalciferol (vitamin D2) 1,250 See Rx Instructions .Route 04/25/24 mcg (50,000 unit) capsule .COMPLEX #4 caps furosemide 80 mg tablet See Rx Instructions .Route 04/25/24 .COMPLEX #90 tabs glipizide 10 mg tablet, extended See Rx Instructions .Route 04/25/24 release 24 hr .COMPLEX #120 tabs omeprazole 40 mg capsule,delayed See Rx Instructions .Route 04/25/24 release .COMPLEX #90 caps pregabalin 150 mg capsule 150 mg PO BID Pain #60 caps 04/25/24 zolpidem 10 mg tablet 10 mg PO HS #30 tabs 04/25/24 bupropion HCl 150 mg 24 hr tablet, 150 mg PO DAILY #30 tabs 05/05/24 extended release (Wellbutrin XL) blood-glucose sensor (Dexcom G6 #3 ea 05/26/24 Sensor device) cyclobenzaprine 10 mg tablet See Rx Instructions .Route 05/26/24 .COMPLEX #30 tabs duloxetine 20 mg capsule,delayed See Rx Instructions .Route 05/26/24 release .COMPLEX #60 caps empagliflozin 10 mg tablet See Rx Instructions .Route 05/26/24 (Jardiance) .COMPLEX #90 tabs promethazine 12.5 mg tablet See Rx Instructions .Route 05/26/24 .COMPLEX #60 tabs Allergies Allergy/AdvReac Type Severity Reaction Status Date / Time metformin AdvReac Intermediate abd Verified 04/26/24 14:44 pain,diarrhea <Ross A Katerina, MD - Last Filed: 06/06/24 20:19> History of Present Illness HPI narrative: Please note that above description of symptoms, in this electronic medical record under categorization of recalled from ER triage doctor by RN are reflective of an initial nursing assessment, however, is not reflective of my full history and physical exam that was personally taken and clarified. Consequentially, this preceding description of symptoms, which may include the patient's categorized chief complaint in the EMR, do not reflect my personal clinical impression, and the ultimate description of history of present illness and patient stated complaints should be deferred to this section of the note. Unless stated otherwise or congruent with this section of the note, additional signs, symptoms, or incongruence should be interpreted as inaccurate with my clinical impression. PFS <HELEN Nunn - Last Filed: 06/06/24 18:07> [facility] Disclaimer: The information contained in this section may have been updated after the patient was seen, as this information can be updated by other users. 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 Plantar fascial fibromatosis of right foot Capsulitis of ankle Anterior pleuritic pain Neuropathy Obesity (BMI 30-39.9) Migraine Diabetes Fibromyalgia Surgical History History of cholecystectomy History of surgery ablation History of surgery heart cath Status post surgical removal of nail matrix of toe History of partial hysterectomy H/O hysterectomy with oophorectomy TVH, subsequent LSO Family History Other No significant family history Social History Smoking Status: Unknown if ever smoked years smoked: 25 second hand exposure: No alcohol intake: current alcohol intake frequency: holidays/special occasions only counseling given: No substance use type: denies use counseling given: No (she might smoke a joint every now and then; when with her nephew) current occupational status: employed Travel in the last 8 weeks: None adopted: No caregiver/support person: Yes foster care: No household members: spouse housing: house lives independently: Yes marital status: number of children: 2 number of grandchildren: 7 education level: college current occupation: [employer] current occupational exposures/hazards: No Hx Recent Travel: No sexually active: Yes caffeine: Yes physical activity: none working smoke detector in home: Yes fire extinguisher in home: No carbon monox detector in home: Yes firearms in home: Yes firearms unloaded and locked: Yes do you feel safe at home: Yes victim of physical abuse: No victim of emotional abuse: No victim of sexual abuse: No would you like helpful sources: No Other Medical History Have you received the Flu Vaccine for this season: No Have you received the Pneumonia Vaccine: Yes <Joseluis Borges MD - Last Filed: 06/06/24 20:19> ROS Obtained: Yes All systems reviewed & no additional complaints except as documented Physical Exam <Joseluis Borges MD - Last Filed: 06/06/24 20:19> General General appearance: alert Head Head exam: atraumatic and normocephalic Eye Eye exam: Present normal appearance, PERRL and EOMI Neck Neck exam: Present normal inspection, full ROM and trachea midline Respiratory Respiratory exam: Absent respiratory distress, wheezes, stridor, accessory muscle use or prolonged expiratory phase Cardiovascular Cardiovascular exam: Present other (Pulses equal symmetric in upper and lower extremities) Abdominal Exam Abdominal exam: Present soft; Absent distention, tenderness or pulsatile mass Extremities Exam Extremities exam: Absent edema Neurological Exam Neurological exam: Present alert, oriented X3 and CN II-XII intact; Absent motor sensory deficit Skin Skin exam: Present warm and dry; Absent diaphoresis or erythema Medical Decision Making <HELEN Nunn - Last Filed: 06/06/24 18:07> Medical Records Screening: Per USPSTF and CDC recommendations, given the prevalence of disease in our region, it is our hospital?s policy to screen for HIV and viral Hepatitis for all patients aged 18 and over and those with ongoing risk factors. Vital Signs: 06/06/24 17:53 06/06/24 18:00 06/06/24 18:30 Temperature 97.9 F Temperature Source Oral Pulse Rate 70 67 Pulse Rate [Radial] 70 Respiratory Rate 18 Blood Pressure 139/85 136/80 Blood Pressure [Right Arm] 142/80 H Blood Pressure Mean [Right Arm] 100 Blood Pressure Source [Right Arm] Automatic Cuff Blood Pressure Position [Right Arm] Sitting 02 Sat by Pulse Oximetry 96 94 L 96 Oxygen Delivery Method Room Air 06/06/24 19:00 06/06/24 19:30 Temperature Temperature Source Pulse Rate 64 60 Pulse Rate [Radial] Respiratory Rate Blood Pressure 113/74 111/73 Blood Pressure [Right Arm] Blood Pressure Mean [Right Arm] Blood Pressure Source [Right Arm] Blood Pressure Position [Right Arm] 02 Sat by Pulse Oximetry 91 L 94 L Oxygen Delivery Method Lab Data Lab Results 06/06/24 18:00: HIV 1&2 Antibody Rapid Nonreactive Orders (Tests/Meds): ED MEDICATIONS Discontinued Medications Generic Name Dose Route Start Last Admin Trade Name Freq PRN Reason Stop Dose Admin Acetaminophen 1,000 mg 06/06/24 18:04 06/06/24 18:44 Acetaminophen 1,000mg/100ml Vial IV 06/06/24 18:05 1,000 mg ONCE ONE Administration Dexamethasone Sodium Phosphate 10 mg 06/06/24 18:04 06/06/24 18:41 Dexamethasone 4mg/Ml 1ml Vial IV 06/06/24 18:05 10 mg ONCE ONE Administration Diphenhydramine HCl 50 mg 06/06/24 18:04 06/06/24 18:41 Diphenhydramine 50mg/Ml Vial IV 06/06/24 18:05 50 mg ONCE ONE Administration Droperidol 2.5 mg 06/06/24 18:04 06/06/24 18:41 Droperidol 5mg/2ml Vial IV 06/06/24 18:05 2.5 mg ONCE ONE Administration Magnesium Sulfate 2 gm in 50 mls @ 50 mls/hr 06/06/24 18:04 06/06/24 18:40 Magnesium Sulfate 2gm/50ml Premix IV 06/06/24 19:03 50 mls/hr ONCE ONE Administration Sodium Chloride 1,000 mls @ 999 mls/hr 06/06/24 18:06 06/06/24 18:41 Sod Chlor 0.9% 1000ml Bag IV 06/06/24 19:06 999 mls/hr .Q1H1M ONE Administration Ketorolac Tromethamine 15 mg 06/06/24 18:04 06/06/24 18:40 Ketorolac 30mg/Ml Vial IV 06/06/24 18:05 15 mg ONCE ONE Administration Sumatriptan Succinate 6 mg 06/06/24 19:08 06/06/24 19:24 Sumatriptan 6mg/0.5ml Vial SQ 06/06/24 19:09 6 mg ONCE ONE Administration ORDERS Category Date Time Status HIV (1&2) Antibody Rapid Stat Lab 06/06/24 18:00 Completed Hep C Ab with Reflex to RNA Stat Lab 06/06/24 18:00 Completed <Joseluis Borges MD - Last Filed: 06/06/24 20:19> Medical Records Medical records reviewed: Yes I reviewed the patient's medical records. Efren Inquiry Pt receiving controlled substance: No Efren was queried for this patient: No Vital Signs: 06/06/24 17:53 06/06/24 18:00 06/06/24 18:30 Temperature 97.9 F Temperature Source Oral Pulse Rate 70 67 Pulse Rate [Radial] 70 Respiratory Rate 18 Blood Pressure 139/85 136/80 Blood Pressure [Right Arm] 142/80 H Blood Pressure Mean [Right Arm] 100 Blood Pressure Source [Right Arm] Automatic Cuff Blood Pressure Position [Right Arm] Sitting 02 Sat by Pulse Oximetry 96 94 L 96 Oxygen Delivery Method Room Air 06/06/24 19:00 06/06/24 19:30 Temperature Temperature Source Pulse Rate 64 60 Pulse Rate [Radial] Respiratory Rate Blood Pressure 113/74 111/73 Blood Pressure [Right Arm] Blood Pressure Mean [Right Arm] Blood Pressure Source [Right Arm] Blood Pressure Position [Right Arm] 02 Sat by Pulse Oximetry 91 L 94 L Oxygen Delivery Method Lab Data Lab Results 06/06/24 18:00: HIV 1&2 Antibody Rapid Nonreactive Orders (Tests/Meds): ED MEDICATIONS Discontinued Medications Generic Name Dose Route Start Last Admin Trade Name Freq PRN Reason Stop Dose Admin Acetaminophen 1,000 mg 06/06/24 18:04 06/06/24 18:44 Acetaminophen 1,000mg/100ml Vial IV 06/06/24 18:05 1,000 mg ONCE ONE Administration Dexamethasone Sodium Phosphate 10 mg 06/06/24 18:04 06/06/24 18:41 Dexamethasone 4mg/Ml 1ml Vial IV 06/06/24 18:05 10 mg ONCE ONE Administration Diphenhydramine HCl 50 mg 06/06/24 18:04 06/06/24 18:41 Diphenhydramine 50mg/Ml Vial IV 06/06/24 18:05 50 mg ONCE ONE Administration Droperidol 2.5 mg 06/06/24 18:04 06/06/24 18:41 Droperidol 5mg/2ml Vial IV 06/06/24 18:05 2.5 mg ONCE ONE Administration Magnesium Sulfate 2 gm in 50 mls @ 50 mls/hr 06/06/24 18:04 06/06/24 18:40 Magnesium Sulfate 2gm/50ml Premix IV 06/06/24 19:03 50 mls/hr ONCE ONE Administration Sodium Chloride 1,000 mls @ 999 mls/hr 06/06/24 18:06 06/06/24 18:41 Sod Chlor 0.9% 1000ml Bag IV 06/06/24 19:06 999 mls/hr .Q1H1M ONE Administration Ketorolac Tromethamine 15 mg 06/06/24 18:04 06/06/24 18:40 Ketorolac 30mg/Ml Vial IV 06/06/24 18:05 15 mg ONCE ONE Administration Sumatriptan Succinate 6 mg 06/06/24 19:08 06/06/24 19:24 Sumatriptan 6mg/0.5ml Vial SQ 06/06/24 19:09 6 mg ONCE ONE Administration ORDERS Category Date Time Status HIV (1&2) Antibody Rapid Stat Lab 06/06/24 18:00 Completed Hep C Ab with Reflex to RNA Stat Lab 06/06/24 18:00 Completed Medical Decision Narrative: 53-year-old female history of migraines and Ubrelvy for abortive purposes presenting with migraine. Patient states that she started having this migraine yesterday, 06/05. Refractory to Ubrelvy. States that it is left-sided, radiates down her neck. No fevers, chills, vomiting, vision changes, neurologic deficits, thunderclap headache, or any other concerns. Severe, 10 out of 10, photophobic and photophobic. History was obtained via conversation with patient. On arrival, patient hemodynamically stable, alert, oriented x4, appropriate, GCS 15, moving all extremities spontaneously, pupils equal and reactive to light. Full physical exam performed and significant for in mild distress secondary to pain laying in dark room covering her eyes speaking softly. Neurologically intact. Differential includes headache, migraine, intracranial mass/intracranial bleed less likely, among others. Patient placed on continuous cardiac monitoring and continuous pulse ox with initial blood pressure 142 over, heart rate 70, saturation 96% on room air. Independent interpretation of EKG shows sinus rhythm 70 beats a minute no ST or T wave changes concern for acute ischemia. NH 167, QRS 105, QTc mildly prolonged at 454. Given magnesium 2 g for this. Patient was placed in observation beginning at 6 PM in order to give meds and monitor for improvement and determine need for admission versus home-going. The patient was provided migraine cocktail while awaiting results. On reevaluation, patient's headache almost entirely gone. At this time, I feel patient is appropriate for discharge. Total observation time 2 hours. Because patient at baseline without signs or symptoms of clinical decompensation, deemed appropriate for discharge. Results were relayed to patient who voiced understanding and were agreeable to outpatient management and follow up. I discussed my clinical impression with patient and answered all questions. At this time, the evidence for any other entities in the differential is insufficient to warrant any further testing or ED observation. This was explained as well. Advisory was given that persistent or worsening symptoms require further evaluation. I confirmed the understanding of this discussion. Clay Pigeon Setter disclaimer Much of this encounter note is an electronic clerk of scales spoken language to printed text. Electronic clerk of scales of the spoken language may permit errors. Although I have reviewed the note, some errors may still exist. Critical Care <Joseluis Borges MD - Last Filed: 06/06/24 20:19> Critical Care Time Critical Care Time: No
--- NOTE | 2024-06-06 18:26 | ECG_ITS ---
APPROVED REPORT Exam: Resting ECG HR:70 bpm ECG Measurements Heart Rate 70 AXES VT 167 P 74 QRSd 105 QRS 111 QT 434 T 46 QTc 454 Conclusion Sinus rhythm Electronically signed by : EVER CAMPBELL, 06/06/2024 21:39:47
[2024-06-06 18:30] VITALS: BP 136/80; PULSE 67; O2SAT 96
[2024-06-06] MEDS: KETOROLAC 30MG/ML VIAL 15 MG IV (18:40)
[2024-06-06] MEDS: MAGNESIUM SULFATE IN WATER 2 GM/50 ML PIGGYBACK IV (18:40)
[2024-06-06] MEDS: DEXAMETHASONE 4MG/ML 1ML VIAL 10 MG IV (18:41)
[2024-06-06] MEDS: 0.9 % SODIUM CHLORIDE 1000ML 1,000 ML 999 ML IV (18:41)
[2024-06-06] MEDS: droPERidol 5MG/2ML VIAL 2.5 MG IV (18:41)
[2024-06-06] MEDS: diphenhydrAMINE 50MG/ML VIAL 50 MG IV (18:41)
[2024-06-06] MEDS: ACETAMINOPHEN 1,000MG/100ML VIAL 1000 MG IV (18:44)
[2024-06-06 19:00] VITALS: BP 113/74; PULSE 64; O2SAT 91
--- NOTE | 2024-06-06 19:08 | PC.NURSE ---
ROUNDED ON PT, REPORTS SOME RELIEF. CONTINUED PAIN TO BACK OF HEAD AND NECK. DR CAMPBELL NOTIFIED
[2024-06-06] MEDS: SUMAtriptan 6MG/0.5ML VIAL 6 MG SQ (19:24)
[2024-06-06 19:30] VITALS: BP 111/73; PULSE 60; O2SAT 94
--- NOTE | 2024-06-06 19:59 | PC.NURSE ---
pt reports improved headache pain 11/13, er md made aware
[2024-06-06 20:07] LABS: HIV (1&2) Antibody Rapid NONREACTIVE (NONREACTIVE)
[2024-06-06 20:22] VITALS: BP 120/75; PULSE 57; RESP 16; TEMP 36.8; O2SAT 96
[2024-06-08 05:22] LABS: HCV Ab Non Reactive (Non Reactive)
== END 2024-06-06 20:29 | disposition home or self-care (01) ==
PROVIDERS: Emergency Provider Emergency Medicine; PCP Family Medicine
DX: G43.911 Migraine, unspecified, intractable, with status migrainosus (principal)
CPT/HCPCS: 86803; 87389; 93005; 99284; J0131; J1100; J1200; J1790; J1885; J3475; J7030

== ENCOUNTER 2024-08-15 08:09 | Outpatient (CLI) | payer BC, SELFPAY ==
--- NOTE | 2024-08-15 08:10 | MM_ITS ---
PROCEDURE INFORMATION: Exam: MG Bilateral Screening 3D Mammography Exam date and time: 08/15/2024 8:18 AM Age: 54 years old Clinical indication: Screening examination. TECHNIQUE: Imaging protocol: Bilateral Screening tomosynthesis and 2D mammography including computer-aided detection (CAD) when performed. COMPARISON: 1. MG MM DIG SCREENING MAMM BI W/CAD 08/12/2023 2:50 PM 2. MG MM DIG SCREENING MAMM BI W/CAD 06/29/2022 7:58 AM FINDINGS: MAMMOGRAPHY: Breast composition: There are scattered areas of fibroglandular density. Mass: None. Architectural distortion: None. Calcifications: No suspicious calcifications. Asymmetric density: None. Skin thickening: None. Axillary adenopathy: None. IMPRESSION: No mammographic evidence of malignancy. Annual screening is recommended unless otherwise clinically indicated. ASSESSMENT: BI-RADS Category 1: Negative.
== END 2024-08-15 23:59 | disposition home or self-care (01) ==
LOC: RAD 08:10
PROVIDERS: PCP Family Medicine; Visit Provider Nurse Practitioner Obstetrics & Gynecology
DX: Z12.31 Encounter for screening mammogram for malignant neoplasm of breast (principal)
CPT/HCPCS: 77063; 77067

== ENCOUNTER 2024-08-31 10:52 | Outpatient (CLI) | payer BC, SELFPAY ==
--- NOTE | 2024-08-31 10:53 | US_ITS ---
PROCEDURE INFORMATION: Exam: US Left Breast, Complete Exam date and time: 08/31/2024 10:45 AM Age: 54 years old Clinical indication: Left breast palpable area of concern at the 3 o'clock axis. TECHNIQUE: Imaging protocol: Complete ultrasound of all four quadrants of the left breast and the retroareolar regions, including ultrasound of the axilla when performed. COMPARISON: MG MM DIG SCREENING MAMM BI W/CAD 08/15/2024 8:18 AM FINDINGS: ULTRASOUND: Breast ultrasound findings: Ultrasound of the left breast is performed. In the 3 o'clock axis, 10 cm from the nipple in the palpable area of concern there is a benign appearing lymph node measuring 0.9 x 0.9 x 0.5 cm. There is no suspicious mass, shadowing, or distortion. No axillary adenopathy. IMPRESSION: 1. No sonographic evidence of malignancy. Benign lymph node in the left breast is located at the site of palpable concern. Continued clinical monitoring for any changes is recommended. 2. Further evaluation of a palpable abnormality should be based on clinical grounds regardless of radiographic findings or lack thereof. ASSESSMENT: BI-RADS Category 2: Benign.
== END 2024-08-31 23:59 | disposition home or self-care (01) ==
LOC: RAD 10:53
PROVIDERS: PCP Family Medicine; Visit Provider Obstetrics & Gynecology
DX: N63.20 Unspecified lump in the left breast, unspecified quadrant (principal)
CPT/HCPCS: 76641

== ENCOUNTER 2024-09-04 09:38 | Outpatient (CLI) | payer BC, SELFPAY ==
[2024-09-04 18:32] LABS: Albumin Level 4.2 g/dl (3.5-5.0); Chloride 100 mmol/L (98-107); Potassium 3.9 mmoL/L (3.5-5.1); Sodium 134 mmol/L (136-145)
[2024-09-04 18:35] LABS: Alanine Aminotransferase 39 U/L (12-78); Albumin/Globulin Ratio 1.4 (1.1-1.8); Alkaline Phosphatase 139 U/L (38-126); Anion Gap 9.9 mEq/L (5-15); Aspartate Amino Transferase 46 U/L (14-36); Bilirubin,Total 0.4 mg/dl (0.2-1.3); Blood Urea Nitrogen 13 mg/dl (7-17); Carbon Dioxide 28 mmol/L (22.0-30.0); Estimated Glomerular Filt Rate 66 ml/min (>60); GFR (African American) 80 ML/MIN (>60); Globulin 2.9 g/dL (1.3-3.2); Total Protein,Serum 7.1 g/dl (6.3-8.2)
[2024-09-04 18:36] LABS: Calcium 8.8 mg/dl (8.4-10.2); Glucose 305 mg/dl (74-100)
[2024-09-04 18:58] LABS: Hemoglobin A1C 7.8 % (4.0-6.0)
== END 2024-09-04 23:59 | disposition home or self-care (01) ==
LOC: LAB.DROPOF 09-05 09:38
PROVIDERS: PCP Family Medicine; Visit Provider Family Medicine
DX: E11.9 Type 2 diabetes mellitus without complications (principal); Z79.4 Long term (current) use of insulin; Z79.84 Long term (current) use of oral hypoglycemic drugs
CPT/HCPCS: 80053; 83036

== ENCOUNTER 2024-09-25 09:44 | Outpatient (CLI) | payer BC, SELFPAY ==
--- NOTE | 2024-09-25 09:46 | XR_ITS ---
FINAL REPORT CLINICAL HISTORY: left hand trigger pain COMPARISON: None FINDINGS: LEFT HAND Three views demonstrate no acute fracture or dislocation. There is mild DIP joint space narrowing, particularly evident at the third DIP joint this may be related to early osteoarthritis. The soft tissues are unremarkable. IMPRESSION: Early degenerative changes without acute process. Reviewed, Interpreted and Dictated by Robert Burciaga MD Transcribed by Fely Brown Authenticated and . [facility]
--- NOTE | 2024-09-25 09:46 | XR_ITS ---
FINAL REPORT CLINICAL HISTORY: Left Wrist pain COMPARISON: None FINDINGS: LEFT WRIST Three views demonstrate no acute fracture or dislocation. The visualized joint spaces are normally aligned. The soft tissues are unremarkable. IMPRESSION: No acute bony abnormality. Reviewed, Interpreted and Dictated by Robert Burciaga MD Transcribed by Fely Brown Authenticated and [facility]
--- NOTE | 2024-09-25 09:46 | XR_ITS ---
FINAL REPORT CLINICAL HISTORY: right wrist pain COMPARISON: None FINDINGS: RIGHT WRIST Three views demonstrate no acute fracture or dislocation. The visualized joint spaces are normally aligned. The soft tissues are unremarkable. IMPRESSION: No acute bony abnormality. Reviewed, Interpreted and Dictated by Robert Burciaga MD Transcribed by Fely Brown Authenticated and [facility]
== END 2024-09-25 23:59 | disposition home or self-care (01) ==
LOC: RAD 09:45
PROVIDERS: PCP Family Medicine; Visit Provider Physician Assistant
DX: M79.642 Pain in left hand (principal); M25.532 Pain in left wrist; M79.641 Pain in right hand
CPT/HCPCS: 73110; 73130

== ENCOUNTER 2024-12-06 17:33 | Emergency (ER) | payer BC, SELFPAY ==
[2024-12-06 17:49] VITALS: BP 137/83; PULSE 82; RESP 16; TEMP 36.9; O2SAT 100; BMI 32.5
--- NOTE | 2024-12-06 18:07 | ED_ITS ---
<Statement entered by Isaías Erwin MD - 12/06/24 23:18> I was consulted by the NIMESH, and we discussed the complexity of the problems being addressed. I approved the treatment and management plan for this patient's care in the emergency department, thus performing a substantive portion of the medical decision making. Isaías Erwin MD Discharge Plan Disposition Patient Disposition: Home, Self-Care Prescriptions Prescriptions: New ketorolac 10 mg tablet 10 mg PO Q8H PRN (Reason: pain) 1 Days Qty: 10 0RF Rx Instructions: Had IV dose No Action azelastine 137 mcg (0.1 %) aerosol,spray 1 spray intranasal BID Qty: 30 2RF Rx Instructions: administer into each nostril Ubrelvy 100 mg tablet 100 mg PO DAILYP PRN (Reason: Migraine Headache) Qty: 14 0RF insulin glargine [Lantus Solostar U-100 Insulin] 100 unit/mL (3 mL) insulin pen SQ (DME) lancets [OneTouch Delica Plus Lancet] 33 gauge misc See Rx Instructions .ROUTE .MEDSUPPLY Qty: 100 Rx Instructions: As directed (DME) pen needle, diabetic [BD Ultra-Fine Micro Pen Needle] 32 gauge x 1/4 needle See Rx Instructions .ROUTE .MEDSUPPLY Qty: 100 Rx Instructions: As directed (DME) OneTouch Ultra Test Strip See Rx Instructions .ROUTE .MEDSUPPLY Qty: 10 Rx Instructions: As directed (DME) blood-glucose meter [OneTouch Ultra2 Meter] Misc See Rx Instructions .ROUTE .MEDSUPPLY Qty: 1 Rx Instructions: As directed aspirin 325 mg tablet,delayed release (DR/EC) 325 mg PO DAILY glipizide 10 mg tablet extended release 24hr 10 mg PO DAILY bupropion HCl [Wellbutrin XL] 300 mg tablet extended release 24 hr 300 mg PO DAILY Qty: 30 1RF bupropion HCl [Wellbutrin XL] 150 mg tablet extended release 24 hr 150 mg PO DAILY Qty: 30 1RF Rx Instructions: take daily with 300mg tablet; dose is 450mg daily (DME) Dexcom G6 Supervisor [place]le Misc See Rx Instructions .Route Qty: 1 0RF Rx Instructions: As directed (DME) Dexcom G6 Transmitter Device See Rx Instructions .ROUTE .COMPLEX Qty: 1 3RF Dose Instruction: USE DIRECTED Rx Instructions: USE DIRECTED promethazine 12.5 mg tablet See Rx Instructions .ROUTE .COMPLEX Qty: 30 1RF Dose Instruction: TAKE ONE TABLET BY MOUTH 3 TIMES A DAY NEEDED FOR NAUSEA/VOMITING. LAST DOSE NO LATER THAN 4 HOURS BEFORE BEDTIME Rx Instructions: TAKE ONE TABLET BY MOUTH 3 TIMES A DAY NEEDED FOR NAUSEA/VOMITING. LAST DOSE NO LATER THAN 4 HOURS BEFORE BEDTIME duloxetine 20 mg capsule,delayed release(DR/EC) See Rx Instructions .ROUTE .COMPLEX Qty: 180 3RF Dose Instruction: TAKE ONE CAPSULE BY MOUTH 2 TIMES A DAY FOR FIBROMYALGIA Rx Instructions: TAKE ONE CAPSULE BY MOUTH 2 TIMES A DAY FOR FIBROMYALGIA (DME) Dexcom G6 Sensor Device See Rx Instructions .ROUTE .COMPLEX Qty: 3 5RF Dose Instruction: USE DIRECTED Rx Instructions: USE DIRECTED desvenlafaxine succinate 50 mg tablet extended release 24 hr See Rx Instructions .ROUTE .COMPLEX Qty: 30 3RF Dose Instruction: TAKE ONE TABLET BY MOUTH ONCE A DAY Rx Instructions: TAKE ONE TABLET BY MOUTH ONCE A DAY pregabalin 150 mg capsule 150 mg PO BID Qty: 60 2RF ergocalciferol (vitamin D2) 1,250 mcg (50,000 unit) capsule See Rx Instructions .ROUTE .COMPLEX Qty: 4 2RF Dose Instruction: TAKE ONE CAPSULE BY MOUTH ONCE A WEEK Rx Instructions: TAKE ONE CAPSULE BY MOUTH ONCE A WEEK glipizide 10 mg tablet See Rx Instructions .ROUTE .COMPLEX Qty: 60 2RF Dose Instruction: TAKE TWO TABLETS BY MOUTH 2 TIMES A DAY Rx Instructions: TAKE TWO TABLETS BY MOUTH 2 TIMES A DAY cyclobenzaprine 10 mg tablet See Rx Instructions .ROUTE .COMPLEX Qty: 30 2RF Dose Instruction: TAKE ONE TABLET BY MOUTH AT BEDTIME Rx Instructions: TAKE ONE TABLET BY MOUTH AT BEDTIME simvastatin 5 mg tablet See Rx Instructions .ROUTE .COMPLEX Qty: 90 0RF Dose Instruction: TAKE ONE TABLET BY MOUTH EVERY EVENING Rx Instructions: TAKE ONE TABLET BY MOUTH EVERY EVENING furosemide 80 mg tablet See Rx Instructions .ROUTE .COMPLEX Qty: 90 0RF Dose Instruction: TAKE ONE TABLET BY MOUTH ONCE A DAY FOR DIURETIC Rx Instructions: TAKE ONE TABLET BY MOUTH ONCE A DAY FOR DIURETIC Jardiance 25 mg tablet See Rx Instructions .ROUTE .COMPLEX Qty: 90 0RF Dose Instruction: TAKE ONE TABLET BY MOUTH ONCE A DAY Rx Instructions: TAKE ONE TABLET BY MOUTH ONCE A DAY zolpidem 10 mg tablet 10 mg PO HS Qty: 30 2RF potassium chloride 20 mEq tablet,ER particles/crystals See Rx Instructions .ROUTE .COMPLEX Qty: 30 2RF Dose Instruction: TAKE ONE TABLET BY MOUTH ONCE A DAY Rx Instructions: TAKE ONE TABLET BY MOUTH ONCE A DAY omeprazole 40 mg capsule,delayed release(DR/EC) 40 mg PO DAILY Qty: 90 2RF Rx Instructions: TAKE ONE CAPSULE BY MOUTH ONCE A DAY clobetasol 0.05 % ointment See Rx Instructions .ROUTE .COMPLEX Qty: 60 2RF Dose Instruction: APPLY TO AFFECTED AREA AT BEDTIME Rx Instructions: APPLY TO AFFECTED AREA AT BEDTIME Referrals Follow up/Referrals: Alissa Faria APRN [Primary Care Provider] - See instructions Activity Restrictions/Add. Instructions Additional Instructions/Restrictions: Today you were evaluated in the emergency department for chest pain, you had 2 negative cardiac enzymes. Your chest x-ray was unremarkable for any acute cardiopulmonary findings. Your CTA did not show a dissection or pulmonary embolism. I feel that your chest pain and back pain are most likely musculoskeletal related. Please continue to take [id number] pain medication for these. Follow-up with your PCP within 7 days. Please return to the ED for any worsening of condition. Clinical Impressions Clinical Impression: Chest pain Qualifiers: Chest pain type: unspecified Qualified Code(s): R07.9 - Chest pain, unspecified Back pain Qualifiers: Back pain location: thoracic back pain Chronicity: acute Back pain laterality: bilateral Qualified Code(s): M54.6 - Pain in thoracic spine Instructions Patient Instructions: DI for Acute Pain -- Adult Print Language Print Language: Yakut Discharge ED Provider: Isaías Erwin General Adult HPI General Chief complaint: PAIN Stated complaint: SOA,back pain Time Seen by Provider: 12/06/24 18:07 Mode of Arrival: Ambulatory Source of Information: Patient Description of Symptoms (Recalled from ER Triage Doc. by RN): patient states for 2 days she has had rib and back pain that is stabbing and constant. hurts worse with movement has also had a cough. denies shortness of breath History of Present Illness HPI narrative: patient is a 54-year-old female PMHx MDD, pulmonary hypertension, congestive heart failure, migraine, diabetes, hyperlipidemia, obesity, fibromyalgia who presents to the ED with complaints of chest pain and back pain that started yesterday. Related Data Home Medications ?Medication ?Instructions ?Recorded ?Confirmed aspirin 325 mg tablet,delayed 325 mg PO DAILY 08/25/24 11/09/24 release blood sugar diagnostic (OneTouch #10 ea 08/25/24 11/09/24 Ultra Test strips) blood-glucose meter (OneTouch #1 ea 08/25/24 11/09/24 Ultra2 Meter) glipizide 10 mg tablet, extended 10 mg PO DAILY 08/25/24 11/09/24 release 24 hr insulin glargine 100 unit/mL (3 unit SQ 08/25/24 11/09/24 mL) subcutaneous pen (Lantus Solostar U-100 Insulin) lancets 33 gauge (OneTouch Delica #100 ea 08/25/24 11/09/24 Plus Lancet) pen needle, diabetic 32 gauge x #100 ea 08/25/24 11/09/24 1/ (BD Ultra-Fine Micro Pen Needle) Previous Rx's ?Medication ?Instructions ?Recorded blood-glucose meter,continuous #1 ea 04/30/23 (Dexcom G6 Supervisor [place] [employer] [place]le) azelastine 137 mcg (0.1 %) nasal 1 spray intranasal BID #30 mL 01/21/24 spray ubrogepant 100 mg tablet (Ubrelvy) 100 mg PO DAILYP PRN Migraine 01/21/24 Headache #14 tabs blood-glucose transmitter (Dexcom #1 ea 06/23/24 G6 Transmitter device) promethazine 12.5 mg tablet See Rx Instructions .Route 06/23/24 .COMPLEX #30 tabs duloxetine 20 mg capsule,delayed See Rx Instructions .Route 07/25/24 release .COMPLEX #180 caps blood-glucose sensor (Dexcom G6 #3 ea 07/26/24 Sensor device) desvenlafaxine succinate 50 mg See Rx Instructions .Route 08/31/24 tablet,extended release 24 hr .COMPLEX #30 tabs pregabalin 150 mg capsule 150 mg PO BID Pain #60 caps 09/04/24 cyclobenzaprine 10 mg tablet See Rx Instructions .Route 09/27/24 .COMPLEX #30 tabs ergocalciferol (vitamin D2) 1,250 See Rx Instructions .Route 09/27/24 mcg (50,000 unit) capsule .COMPLEX #4 caps glipizide 10 mg tablet See Rx Instructions .Route 09/27/24 .COMPLEX #60 tabs empagliflozin 25 mg tablet See Rx Instructions .Route 10/30/24 (Jardiance) .COMPLEX #90 tabs furosemide 80 mg tablet See Rx Instructions .Route 10/30/24 .COMPLEX #90 tabs simvastatin 5 mg tablet See Rx Instructions .Route 10/30/24 .COMPLEX #90 tabs bupropion HCl 150 mg 24 hr tablet, 150 mg PO DAILY #30 tabs 11/03/24 extended release (Wellbutrin XL) bupropion HCl 300 mg 24 hr tablet, 300 mg PO DAILY #30 tabs 11/03/24 extended release (Wellbutrin XL) clobetasol 0.05 % topical ointment See Rx Instructions .Route 12/01/24 .COMPLEX #60 grams omeprazole 40 mg capsule,delayed 40 mg PO DAILY reflux #90 caps 12/01/24 release potassium chloride 20 mEq See Rx Instructions .Route 12/01/24 tablet,extended release(part/cryst) .COMPLEX #30 tabs zolpidem 10 mg tablet 10 mg PO HS #30 tabs 12/01/24 ketorolac 10 mg tablet 10 mg PO Q8H PRN pain 1 day #10 12/06/24 tabs Allergies Allergy/AdvReac Type Severity Reaction Status Date / Time metformin AdvReac Intermediate abd Verified 09/25/24 10:11 pain,diarrhea PFSH PFSH Disclaimer: The information contained in this section may have been updated after the patient was seen, as this information can be updated by other users. 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 Plantar fascial fibromatosis of right foot Capsulitis of ankle Anterior pleuritic pain Neuropathy Obesity (BMI 30-39.9) Migraine Diabetes Fibromyalgia Surgical History History of cholecystectomy History of surgery ablation History of surgery heart cath Status post surgical removal of nail matrix of toe History of partial hysterectomy H/O hysterectomy with oophorectomy TVH, subsequent LSO Family History Other No significant family history Social History Smoking Status: Current every day smoker tobacco type: cigarettes years smoked: 25 second hand exposure: No alcohol intake: current alcohol intake frequency: holidays/special occasions only counseling given: No substance use type: denies use counseling given: No (she might smoke a joint every now and then; when with her nephew) current occupational status: employed Travel in the last 8 weeks: None adopted: No caregiver/support person: Yes foster care: No household members: spouse housing: house lives independently: Yes marital status: number of children: 2 number of grandchildren: 7 education level: college current occupation: [employer] current occupational exposures/hazards: No Hx Recent Travel: No sexually active: Yes caffeine: Yes physical activity: none working smoke detector in home: Yes fire extinguisher in home: No carbon monox detector in home: Yes firearms in home: Yes firearms unloaded and locked: Yes do you feel safe at home: Yes victim of physical abuse: No victim of emotional abuse: No victim of sexual abuse: No would you like helpful sources: No Have you lived/traveled outside [place] in past 30 days?: No Contact w/someone who lives/traveled outside US past 30 days?: No Exposure to someone with infectious disease in past 14 days?: No Do you have a fever (greater than 100.4 F or 38 C)?: No Have you tested positive for COVID-19: No Exposed to someone with COVID-19 in past 14 days?: No Do you have a sore throat?: No Do you have a cough?: No Do you have any weakness?: No Do you have any diarrhea?: No Are you experiencing any unusual bleeding?: No Do you have any muscle aches/pain?: No Do you have any abdominal pain?: No Are you experiencing loss of taste or smell?: No Other Medical History Have you received the Flu Vaccine for this season: No Have you received the Pneumonia Vaccine: No ROS Obtained: Yes Systems reviewed as appropriate & no additional complaints except as documented Physical Exam General General appearance: alert and in no apparent distress Head Head exam: atraumatic and normocephalic Eye Eye exam: Present normal appearance and PERRL ENT ENT exam: Present normal exam Neck Neck exam: Present normal inspection Chest Chest inspection: Present normal inspection, symmetric chest wall rise and tenderness Respiratory Respiratory exam: Present normal lung sounds bilaterally Cardiovascular Cardiovascular exam: Present regular rate Abdominal Exam Abdominal exam: Present soft and normal bowel sounds; Absent tenderness Extremities Exam Extremities exam: Present normal inspection and full ROM Back Exam Back exam: Present full ROM and other (Mild thoracic paraspinal musculature tenderness) Neurological Exam Neurological exam: Present alert and oriented X3 Psychiatric Psychiatric exam: Present normal affect and normal mood Skin Skin exam: Present warm and dry Medical Decision Making Medical Records Screening: Per USPSTF and CDC recommendations, given the prevalence of disease in our region, it is our hospital?s policy to screen for HIV and viral Hepatitis for all patients aged 18 and over and those with ongoing risk factors. Efren Inquiry Pt receiving controlled substance: No Vital Signs: 12/06/24 17:49 12/06/24 18:31 12/06/24 19:54 Temperature 98.5 F Temperature Source Oral Pulse Rate 77 69 Pulse Rate [Right] 82 Respiratory Rate 16 14 18 Blood Pressure 156/94 H 118/60 Blood Pressure [Right Arm] 137/83 Blood Pressure Mean 114 Blood Pressure Mean [Right Arm] 101 Blood Pressure Source [Right Arm] Automatic Cuff Blood Pressure Position [Right Arm] Sitting 02 Sat by Pulse Oximetry 100 96 98 Oxygen Delivery Method Room Air Room Air 12/06/24 21:08 Temperature 98.1 F Temperature Source Pulse Rate 87 Pulse Rate [Right] Respiratory Rate 20 Blood Pressure 132/87 Blood Pressure [Right Arm] Blood Pressure Mean Blood Pressure Mean [Right Arm] Blood Pressure Source [Right Arm] Blood Pressure Position [Right Arm] 02 Sat by Pulse Oximetry Oxygen Delivery Method Room Air Lab Data Lab Results 12/06/24 18:21: WBC 7.1, RBC 5.99 H, Hgb 15.6, Hct 46.4, MCV 77.5 L, MCH 26.0 L, MCHC 33.6, RDW 15.3, Plt Count 175, MPV 9.2, Neut % (Auto) 53.4, Lymph % (Auto) 37.2, [place] % (Auto) 6.9, Eos % (Auto) 1.4, Baso % (Auto) 0.8, Neut # (Auto) 3.8, Lymph # (Auto) 2.6, [place] # (Auto) 0.5, Eos # (Auto) 0.1, Baso # (Auto) 0.1, Sodium 140, Potassium 3.8, Chloride 102, Carbon Dioxide 28, Anion Gap 13.8, BUN 14, Creatinine 1.00, Estimated Creat Clear 90, Estimated GFR 58 L, Est GFR ( Amer) 70, Glucose 121 H, Calcium 9.6, Total Bilirubin 1.0, AST 52 H, ALT 48, Alkaline Phosphatase 117, Troponin I < 0.01, NT-Pro-B Natriuret Pep < 20.0, Total Protein 8.2, Albumin 4.4, Globulin 3.8 H, Albumin/Globulin Ratio 1.2 12/06/24 20:07: Troponin I < 0.01 12/06/24 18:21 12/06/24 18:21 Orders (Tests/Meds): ED MEDICATIONS Generic Name Dose Route Start Last Admin Trade Name Freq PRN Reason Stop Dose Admin Diphenhydramine HCl 25 mg 12/06/24 21:10 Diphenhydramine 50mg/Ml Vial IV 12/06/24 21:11 ONCE ONE Discontinued Medications Generic Name Dose Route Start Last Admin Trade Name Freq PRN Reason Stop Dose Admin Hydromorphone HCl 0.5 mg 12/06/24 19:41 12/06/24 19:47 Hydromorphone 2mg/Ml Syringe IV 12/06/24 19:42 0.5 mg ONCE ONE Administration Hydromorphone HCl 0.5 mg 12/06/24 20:02 12/06/24 20:03 Hydromorphone 2mg/Ml Syringe IV 12/06/24 20:03 0.5 mg ONCE ONE Administration Iopamidol 80 ml 12/06/24 18:59 12/06/24 19:00 Iopamidol-370 (76%);100ml Bottle IV 12/06/24 19:00 80 ml ONCE ONE Administration Ketorolac Tromethamine 15 mg 12/06/24 20:14 12/06/24 20:49 Ketorolac 30mg/Ml Vial IV 12/06/24 20:15 15 mg ONCE ONE Administration Morphine Sulfate 4 mg 12/06/24 18:11 12/06/24 18:34 Morphine 4mg/Ml Syringe IV 12/06/24 18:12 4 mg ONCE ONE Administration Ondansetron HCl 4 mg 12/06/24 18:11 12/06/24 18:34 Ondansetron 4mg/2ml Vial IV 12/06/24 18:12 4 mg ONCE ONE Administration Sodium Chloride 50 ml 12/06/24 18:59 12/06/24 19:00 0.9 % Sodium Chloride 50 Ml Vial IV 12/06/24 19:00 50 ml ONCE ONE Administration Sodium Chloride 10 ml 12/06/24 18:59 12/06/24 19:00 Sodium Chloride 0.9% 10ml Syr (Rad Only) IV 12/06/24 19:00 10 ml ONCE ONE Administration ORDERS Category Date Time Status CTA Chest [CT angio chest - dissection] Stat Cat Scan 12/06/24 18:11 Completed CXR --portable [XR chest portable] Stat Exams 12/06/24 18:11 Completed BNP [NT Pro Brain Natriuretic Pep.] Stat Lab 12/06/24 18:21 Completed CBC w/Auto Diff [Complete Blood Count Auto Diff] Stat Lab 12/06/24 18:21 Completed CMP [Comprehensive Metabolic Panel] Stat Lab 12/06/24 18:21 Completed Trop I [Troponin I] Stat Lab 12/06/24 18:21 Completed Troponin I Q3H Lab 12/06/24 20:07 Completed Troponin I Q3H Lab 12/07/24 00:15 Ordered Medical Decision Narrative: In summary, patient is a 54-year-old female PMHx MDD, pulmonary hypertension, congestive heart failure, migraine, diabetes, hyperlipidemia, obesity, fibromyalgia who presents to the ED with complaints of chest pain and back pain that started yesterday. Patient states the pain has progressively worsened and does not feel like a normal chest pain. Patient states that her chest and back pain is worse with taking a deep breath and movement. Denies any history of CT. Denies any trauma. Denies fever, chills, body aches, cough, abdominal pain, nausea, vomiting, dysuria, flank pain. Differential diagnosis include ACS, dissection, pulmonary embolism, pneumonia, pneumothorax, musculoskeletal chest pain, infectious process, among others. Upon initial evaluation patient is alert, oriented and cooperative. She is hemodynamically stable. She has mid back paraspinal tenderness, mild chest wall tenderness on exam. CBC unremarkable for any leukocytosis, stable H&H. CMP unremarkable for any actual abnormalities, first troponin < 0.01. BNP < 20.0 second troponin < 0.01. Chest x-ray unremarkable for any acute findings. CT of the chest unremarkable for any acute findings. Patient's pain improved after medication administration, she remained hemodynamically stable, given this, feel the patient is appropriate to be discharged home at this time. I discussed with patient she will need to follow- up with her PCP within 7 days. We discussed return precautions to the ED. Advised her to take acetaminophen ibuprofen [id number] for symptomatic pain relief. This is most likely musculoskeletal chest and back pain. I sent a prescription for Toradol to the pharmacy. She was hemodynamically stable and ambulatory upon leaving the ED. Critical Care Critical Care Time Critical Care Time: No
--- NOTE | 2024-12-06 18:11 | CT_ITS ---
PROCEDURE INFORMATION: Exam: CTA Chest With Contrast Exam date and time: 12/06/2024 6:56 PM Age: 54 years old Clinical indication: Pain; Left-sided; Additional info: Cp / back pain TECHNIQUE: Imaging protocol: Computed tomographic angiography of the chest with contrast. Exam focused on the arteries. 3D rendering (Not supervised by radiologist): MIP and/or 3D reconstructed images were created by the technologist. Radiation optimization: All CT scans at this facility use at least one of these dose optimization techniques: automated exposure control; mA and/or kV adjustment per patient size (includes targeted exams where dose is matched to clinical indication); or iterative reconstruction. Contrast material: ISOUVE 370; Contrast volume: 80 ml; Contrast route: INTRAVENOUS (IV); COMPARISON: CT ANGIO CHEST 02/09/2023 11:12 AM FINDINGS: Pulmonary arteries: Normal. No pulmonary emboli. Aorta: Unremarkable. No aortic aneurysm. No aortic dissection. Lungs: Unremarkable. No consolidation. No masses. Pleural spaces: Unremarkable. No pneumothorax. No pleural effusion. Heart: Unremarkable. No cardiomegaly. No pericardial effusion. Lymph nodes: Unremarkable. No enlarged lymph nodes. Bones/joints: Unremarkable. No acute fracture. Soft tissues: Unremarkable. IMPRESSION: No acute findings.
--- NOTE | 2024-12-06 18:11 | XR_ITS ---
PROCEDURE INFORMATION: Exam: XR Chest Exam date and time: 12/06/2024 7:02 PM Age: 54 years old Clinical indication: Chest wall pain; Additional info: Cp TECHNIQUE: Imaging protocol: Radiologic exam of the chest. Views: 1 view. COMPARISON: CT ANGIO CHEST 12/06/2024 6:56 PM FINDINGS: Lungs: Unremarkable. No consolidation. Pleural spaces: Unremarkable. No pleural effusion. No pneumothorax. Heart/Mediastinum: Unremarkable. No cardiomegaly. Bones/joints: Unremarkable. IMPRESSION: No acute findings.
[2024-12-06 18:29] LABS: Basophils # 0.1 K/mm3 (0-0.2); Basophils % 0.8 % (0.1-2.0); Eosinophils # 0.1 K/mm3 (0.0-0.4); Eosinophils % 1.4 % (0.1-12.0); Hematocrit 46.4 % (37.0-47.0); Hemoglobin 15.6 g/dL (12.2-16.2); Lymphocytes # 2.6 K/mm3 (0.7-4.5); Lymphocytes % 37.2 % (10-50); Mean Corpuscular HGB Conc 33.6 g/dL (31.8-35.4); Mean Corpuscular Volume 77.5 fl (81-99); Mean Platelet Volume 9.2 fl (7.4-10.4); Monocytes # 0.5 K/mm3 (0.1-1.0); Monocytes % 6.9 % (1.7-9.3); Neutrophils # 3.8 K/mm3 (1.8-7.8); Neutrophils % 53.4 % (37.0-80.0); Platelet Count 175 K/mm3 (142-424); Red Blood Count 5.99 M/mm3 (4.20-5.40); Red Cell Distribution Width 15.3 % (11.5-17.5); White Blood Count 7.1 K/mm3 (4.8-10.8)
[2024-12-06 18:31] VITALS: BP 156/94; PULSE 77; RESP 14; O2SAT 96
[2024-12-06] MEDS: ONDANSETRON 4MG/2ML VIAL 4 MG IV (18:34)
[2024-12-06] MEDS: MORPHINE 4MG/ML SYRINGE 4 MG IV (18:34)
[2024-12-06 18:45] LABS: Albumin Level 4.4 g/dl (3.5-5.0); Chloride 102 mmol/L (98-107); Sodium 140 mmol/L (136-145)
[2024-12-06 18:46] LABS: Potassium 3.8 mmoL/L (3.5-5.1)
[2024-12-06 18:48] LABS: Alanine Aminotransferase 48 U/L (12-78); Albumin/Globulin Ratio 1.2 (1.1-1.8); Alkaline Phosphatase 117 U/L (38-126); Anion Gap 13.8 mEq/L (5-15); Aspartate Amino Transferase 52 U/L (14-36); Blood Urea Nitrogen 14 mg/dl (7-17); Carbon Dioxide 28 mmol/L (22.0-30.0); Creatinine Clearance Estimated 90 mL/min (50-200); Estimated Glomerular Filt Rate 58 ml/min (>60); GFR (African American) 70 ML/MIN (>60); Globulin 3.8 g/dL (1.3-3.2); Total Protein,Serum 8.2 g/dl (6.3-8.2)
[2024-12-06 18:49] LABS: Calcium 9.6 mg/dl (8.4-10.2); Glucose 121 mg/dl (74-100)
[2024-12-06 18:58] LABS: NT Pro Brain Natriuretic Pep. < 20.0 pg/mL (0-125)
[2024-12-06] MEDS: 0.9 % SODIUM CHLORIDE 50 ML VIAL IV (19:00)
[2024-12-06] MEDS: IOPAMIDOL-370 (76%);100ML BOTTLE 80 ML IV (19:00)
[2024-12-06] MEDS: SODIUM CHLORIDE 0.9% 10ML SYR (RAD ONLY) 10 ML IV (19:00)
[2024-12-06 19:26] LABS: Troponin I < 0.01 ng/ml (0.00-0.034)
[2024-12-06] MEDS: HYDROMORPHONE 2MG/ML SYRINGE 0.5 MG IV ×2 (19:47→20:03)
[2024-12-06 19:54] VITALS: BP 118/60; PULSE 69; RESP 18; O2SAT 98
[2024-12-06 20:42] LABS: Troponin I < 0.01 ng/ml (0.00-0.034)
[2024-12-06] MEDS: KETOROLAC 30MG/ML VIAL 15 MG IV (20:49)
[2024-12-06 21:08] VITALS: BP 132/87; PULSE 87; RESP 20; TEMP 36.7; O2SAT 98
[2024-12-06] MEDS: diphenhydrAMINE 50MG/ML VIAL 25 MG IV (21:12)
== END 2024-12-06 21:22 | disposition home or self-care (01) ==
PROVIDERS: Nurse Practitioner; Emergency Provider Emergency Medicine; PCP Family Medicine
DX: R07.9 Chest pain, unspecified (principal); M54.6 Pain in thoracic spine; M54.9 Dorsalgia, unspecified; R05.9 Cough, unspecified; R07.81 Pleurodynia; F17.210 Nicotine dependence, cigarettes, uncomplicated; G43.909 Migraine, unspecified, not intractable, without status migrainosus; E11.9 Type 2 diabetes mellitus without complications; M79.7 Fibromyalgia; E66.9 Obesity, unspecified; E78.5 Hyperlipidemia, unspecified; F32.9 Major depressive disorder, single episode, unspecified; I27.20 Pulmonary hypertension, unspecified; I50.9 Heart failure, unspecified; Z68.30 Body mass index [BMI] 30.0-30.9, adult
CPT/HCPCS: 71045; 71275; 80053; 83880; 84484; 85025; 96374; 96375; 96376; 99285; J1171; J1200; J1885; J2270; J2405; Q9967

== ENCOUNTER 2025-02-13 09:17 | Outpatient (CLI) | payer BC, SELFPAY ==
--- OUTSIDE RECORDS SUMMARY | 2025-02-13 09:19 | XMS_ITS | Encounter Summary ---
Author Organization [place] [address] Care Team Providers Care Material Disposition Inspector Name Role Phone Amy Ervin MD Unavailable [phone] Anshul Stephen MD Primary Care Provider [phone] Luis Daniel Silvestre MD Unavailable [phone] Encounter Details Date Type Department Care Team (Late st Contact Info) Description 06/15/2017 Orders Only [facility] Ed[facility] [address] [facility] [address] [place] [address] Luis Daniel Silvestre MD [address] [place] [address] Social History Tobacco Use Types Packs/Day Years Used Date Smoking Tobacco: Former Cigarettes Q uit: 06/11/2011 Smokeless Tobacco: Never Alcohol Use Standard Drinks/Week Comments No 0 (1 standard drink = 0.6 oz pur e alcohol) Comments No Sex and Gender Information Value Date Recorded Sex Assigned at Not on file Legal Sex Female 6:33 AM EDT Gender Identity Not on file Sexual Orientation Not on file documented as of this encounter Plan of Treatment Not on file documented as of this encounter Procedures Procedure Name Priority Date/Time Associated Diagnosis Comments EP LAB RECORDINGS Routine 06/15/2017 9:11 AM EDT documented in this encounter Results * EP LAB RECORDINGS (06/15/2017 9:11 AM EDT) 06/15/2017 9:11 AM EDT us Luis Daniel Silvestre MD CARDIAC CATH ORDERABLES Final Result [facility] [address] [place] [address] documented in this encounter Visit Diagnoses Not on filedocumented in this encounter Care Teams Material Disposition Inspector Relationship Specialty Start Date End Date Anshul Stephen MD [address] [place] [address] PCP - General Emergency Medicine 05/20/17 Amy Ervin MD [address] [place] [address] [place] [address] Consulting Physician Internal Medicine - Clinical Cardiac Electrophysiology 05/20/17 07/25/17 Luis Daniel Silvestre MD [address] [place] [id number] Consulting Physician Internal Medicine - Clinical Cardiac Electrophysiology 07/26/17 documented as of this encounter
--- OUTSIDE RECORDS SUMMARY | 2025-02-13 09:19 | XMS_ITS | Clinical Summary ---
Author Organization [facility] Address [address] [place] [address] Phone Care Team Providers Care E Learning Coordinator Name Role Phone Anshul Stephen MD Primary Care Provider [phone] Luis Daniel Silvestre MD Unavailable [phone] Allergies No known active allergies Medications VENTOLIN HFA 90 mcg/actuation Inhl HFA Aerosol Inhaler Inhale 2 Puffs into the lungs every 6 hours as needed. 04/28/2017 Active DULoxetine (CYMBALTA) 20 mg Oral Capsule, Delayed Release(E.C.) Take 20 mg by mouth daily. 04/28/2017 Active fluticasone (FLONASE) 50 mcg/actuation Nasl Jasper, Suspension 1 Jasper by Nasal route daily as needed. 04/28/2017 Active fUROsemide (LASIX) 40 mg Oral Tablet Take 40 mg by mouth daily. 04/08/2017 Active levothyroxine (SYNTHROID) 50 mcg Oral Tablet Take 50 mcg by mouth daily. 04/28/2017 Active omeprazole (PRILOSEC) 40 mg Oral Capsule, Delayed Release(E.C.) Take 40 mg by mouth daily. 04/28/2017 Active spironolactone (ALDACTONE) 50 mg Oral Tablet Take 50 mg by mouth daily. 04/08/2017 Active zolpidem (AMBIEN) 10 mg Oral Tablet Take 10 mg by mouth nightly as needed. 04/28/2017 Active ERGOCALCIFEROL, VITAMIN D2, (VITAMIN D2 ORAL) Take by mouth daily. Active ipratropium-alb uterol (COMBIVENT RESPIMAT) 20-100 mcg/actuation Inhl Mist Inhale 1 Puff into the lungs every 6 hours as needed for Wheezing. Duo neb tx every 4 to 6 hours prn Active ibuprofen (ADVIL;MOTRIN) 200 mg Oral Tablet Take by mouth every 8 hours as needed for Pain. Active metFORMIN (GLUCOPHAGE) 1,000 mg Oral Tablet Take 1,000 mg by mouth 2 times daily (with meals). Active Active Problems Problem Noted Date Diagnosed Date Diastolic dysfunction CHF (congestive heart failure) PVCs (premature ventricular contractions) Overview (07/26/2017): EPS, 3D mapping, PVC Ablation 06/15/17-Dr. Silvestre Palpitations Surgical History Surgery Date Site/Laterality Comments CARDIAC CATHETERIZATION 03/05/2017 CHOLECYSTECTOMY HYSTERECTOMY one ovary removed BLADDER SURGERY sling ABLATION OF DYSRHYTHMIC FOCUS 06/15/2017 EPS, 3D Mapping, PVC Ablation-Dr. Silvestre Medical History Medical History Date Comments Diastolic dysfunction CHF (congestive heart failure) (HCC) PVCs (premature ventricular contractions) Palpitations Asthma GARCIA (dyspnea on exertion) Sleep apnea cpap-10 or 8 Pulmonary hypertension (HCC) Hypertension pulmonary hypert ention Heartburn Diabetes mellitus (HCC) Thyroid disease Multiple sclerosis (HCC) being t ested for now,having some left side weakness and foggy brain,symp about 2 yrs Fibromyalgia Pneumonia shows on ct Social History Tobacco Use Types Packs/Day Years Used Date Smoking Tobacco: Former Cigarettes Q uit: 06/11/2011 Smokeless Tobacco: Never Tobacco Cessation:Counseling Given: No Alcohol Use Standard Drinks/Week Comments No 0 (1 standard drink = 0.6 oz pur e alcohol) Comments No Sex and Gender Information Value Date Recorded Sex Assigned at Not on file Legal Sex Female 6:33 AM EDT Gender Identity Not on file Sexual Orientation Not on file Obstetrics History Last Filed Vital Signs Vital Sign Reading Time Taken Comments Blood Pressure 100/69 10/13/2017 2:17 PM EST Pulse 57 10/13/2017 2:17 PM EST Temperature 36.1 C (97 F) 06/15/2017 2:30 PM EDT Respiratory Rate 18 10/13/2017 1:25 PM EST Oxygen Saturation 98% 10/13/2017 1:25 PM EST Inhaled Oxygen Concentration - - Weight 104 kg (229 lb 3.2 oz) 09/27/2017 3:00 PM EST Height 165.1 cm (5' 5 ) 09/27/2017 3:00 PM EST Body Mass Index 38.14 09/27/2017 3:00 PM EST Plan of Treatment Health Maintenance Due Date Last Done Comments DTaP/TDaP/Td (1 - Tdap) 1991 Hepatitis B Vaccine (1 of 3 - 19+ 3-dose series) 1991 Pneumococcal Vaccine 50+ (1 of 2 - PCV) 1991 HPV/Pap Cotest 2002 Breast Cancer Screening 03/23/2015 03/23/2013 Cologuard 2017 Colon Cancer Screening 2017 Colonoscopy 2017 FIT 2017 Sigmoidoscopy 2017 Virtual Colonography 2017 Annual Wellness Exam 09/27/2018 09/27/2017 (Postponed) Cervical Cancer Screening 09/27/2020 Pap Smear 09/27/2020 09/27/2017 (Postponed) Zoster (1 of 2) 2022 COVID-19 Vaccine ( - 2023-2 5 season) 2024 Influenza Vaccine (Season Ended) 2025 09/27/2017 (Postponed) Meningococcal B Vaccine Aged Out No l onger eligible based on patient's age to complete this topic Procedures Procedure Name Priority Date/Time Associated Diagnosis Comments MM MOBILE MAMMO DIGITAL SCREEN W CAD RIKA Routine 03/23/2013 2:40 PM EDT Other screening mammogram from Last 3 Months or Most Recently Relevant to Health Maintenance Results * MM MOBILE MAMMO DIGITAL SCREEN W CAD RIKA (03/23/2013 2:40 PM EDT) Anatomical Region Laterality Modality Breast Mammography 03/24/2013 7:57 AM EDT Impressions 03/24/2013 3:51 PM EDT : Negative ([id number]) ~ RECOMMENDATION: Routine screening mammogram in 1 year. ~ * The patient with a palpable abnormality, unexplained by breast imaging, should be managed on clinical basis by the attending physician. * Breast imaging has a false negative rate of 15%. * The patient was notified by mail of the results of this examination. *The patient's information was entered into a reminder system with a target due date for the next mammogram. The mammogram was reviewed by a Radiologist and CAD. Narrative 03/24/2013 3:51 PM EDT Procedure:MM MOBILE MAMMO DIGITAL SCREEN W CAD RIKA ~ Reason for exam: screening (asymptomatic). ~ MM MOBILE MAMMO DIGITAL SCREEN W CAD RIKA Bilateral CC and MLO view(s) were taken. There are scattered fibroglandular densities. No suspicious calcifications. ~ Procedure Note Marleny Whitten MD - 03/24/2013 Procedure:MM MOBILE MAMMO DIGITAL SCREEN W CAD RIKA ~ Reason for exam: screening (asymptomatic). ~ MM MOBILE MAMMO DIGITAL SCREEN W CAD RIKA Bilateral CC and MLO view(s) were taken. There are scattered fibroglandular densities. No suspicious calcifications. ~ IMPRESSION: Negative ([id number]) ~ RECOMMENDATION: Routine screening mammogram in 1 year. ~ * The patient with a palpable abnormality, unexplained by breast imaging, should be managed on clinical basis by the attending physician. * Breast imaging has a false negative rate of 15%. * The patient was notified by mail of the results of this examination. *The patient's information was entered into a reminder system with atarget due date for the next mammogram. The mammogram was reviewed by a Radiologist and CAD. Nicholas Bains Sr., IM MAMMOGRAPHY [facility] Final Result from Last 3 Months or Most Recently Relevant to Health Maintenance Insurance [facility] [employer] Care Teams E Learning Coordinator Relationship Specialty Start Date End Date Anshul Stephen MD [address] [facility] [address] [place] [address] PCP - General Emergency Medicine 05/20/17 Luis Daniel Silvestre MD [address] [place] [address] Consulting Physician Internal Medicine - Clinical Cardiac Electrophysiology 07/26/17
--- OUTSIDE RECORDS SUMMARY | 2025-02-13 09:19 | XMS_ITS | Encounter Summary ---
Author Organization [facility] Address [address] [place] [address] Care Team Providers Care Equipment Application Specialist Name Role Phone Alissa Faria WILTON Primary Care Provider [phone] Reason for Visit * Reason Comments Med Refill Encounter Details Date Type Department Care Team (Late st Contact Info) Description 02/13/2025 Refill [facility] Endocrinology [address] [place] [address] Nkechi Celeste APRN [address] [facility] [address] [place] [address] Social History Tobacco Use Types Packs/Day Years Used Date Smoking Tobacco: Former Cigarettes 1 21.8 1 989 - 07/07/2010 Passive Smoke Exposure: Current Smokeless Tobacco: Never Alcohol Use Standard Drinks/Week Comments Yes 3 (1 standard drink = 0.6 oz pur e alcohol) PHQ-2 Answer Date Recorded Patient Health Questionnaire-2 Score 0 06/09/2024 Comments Unknown Sex and Gender Information Value Date Recorded Sex Assigned at Not on file Legal Sex Female 6:53 PM EDT Gender Identity Not on file Sexual Orientation Not on file documented as of this encounter Miscellaneous Notes * Telephone Encounter - Yennifer Jung PharmD - 02/13/2025 9:05 AM EDT 1 medication(s) has been approved per protocol. documented in this encounter Plan of Treatment Upcoming Encounters Date Type Department Care Team (Late st Contact Info) Description 03/02/2025 12:20 PM EDT Office Visit [facility] Endocrinology [address] [place] [phone] Nkechi Celeste, MICROWAVE TECHNICIAN [address] [place] [phone] 06/08/2025 10:30 AM EDT Office Visit [facility] [address] [place] [address] Vane Lim, MICROWAVE TECHNICIAN [address] [place] [phone] documented as of this encounter Visit Diagnoses Not on filedocumented in this encounter Additional Health Concerns Assessment Noted Time A fall risk assessment has been complete d for the patient 06/09/2024 10:35 AM EDT A Body Mass Index follow-up plan has been documented for the patient 10/17/2024 1:05 PM EST documented as of this encounter Care Teams Equipment Application Specialist Relationship Specialty Start Date End Date Alissa Faria APRN [address] [place] [address] PCP - General 04/17/24 documented as of this encounter
--- OUTSIDE RECORDS SUMMARY | 2025-02-13 09:19 | XMS_ITS | Clinical Summary ---
Author Organization [facility] Address [address] [place] [address] Care Team Providers Care Irrigation Flume Layer Name Role Phone Alissa Faria APRN Primary Care Provider [phone] Allergies Active Allergy Reactions Criticality Noted Date Comments Metformin Nausea,Diarrhea High 09/30/2023 Medications pramipexole (Mirapex) 0.125 MG tablet Active albuterol 108 (90 Base) MCG/ACT inhaler Active cholecalcifero l (Vitamin D-3) 1.25 MG (52766 UT) capsule TAKE 1 CAPSULE Weekly Active DULoxetine (Cymbalta) [address] capsule Active furosemide (Lasix) 80 MG tablet Active Emgality 120 MG/ML injection Active Gvoke HypoPen 2-Pack 1 MG/0.2ML solution auto-injector Active ipratropium-al buterol (Duo-Neb) 0.5-2.5 mg/3 mL nebulizer solution Active omeprazole (PriLOSEC) [address] capsule Active SUMAtriptan (Imitrex) 50 MG tablet TAKE ONE TABLET BY MOUTH FOR 1 DOSE NEEDED FOR HEADACHE. DO NOT EXCEED 9 IN 30 DAYS Active zolpidem (Ambien) 10 MG tablet TAKE 1 TABLET AT BEDTIME NEEDED FOR SLEEP. Active Vibegron (Gemtesa) 75 MG tablet 1 (one) time each day. Active Ubrelvy 100 MG tablet Active rOPINIRole (Requip) 1 MG tablet Active phentermine (Adipex-P) 37.5 MG tablet Active mupirocin (Bactroban) 2 % ointment Active NovoLOG 100 UNIT/ML injection USE DIRECTED PER sliding scale (Max daily DOSE = 80 units) Active Insulin Disposable Pump (Omnipod DASH Pods, Gen 4,) misc USE DIRECTED (CHANGE omnipod every 72 hours) Active fluconazole (Diflucan) 150 MG tablet Active ergocalciferol 1.25 MG (63744 UT) capsule Active clobetasol (Temovate) 0.05 % ointment Apply topically. Active Continuous Blood Gluc Community Relations Police Lieutenant (Dexcom G7 Community Relations Police Lieutenant) device Active Continuous Blood Gluc Transmit (Dexcom G6 transmitter) misc Active FLUoxetine (PROzac) 20 MG capsule Take 1 capsule (20 mg) by mouth 1 (one) time each day. Active promethazine (Phenergan) 25 MG tablet 1 tablet (25 mg). Patient reports taking only as needed for nausea Active simvastatin (Zocor) 5 MG tablet Take 1 tablet (5 mg) by mouth every night. Active azelastine (Astelin) 0.1 % nasal spray Active potassium chloride CR (Klor-Con M20) 20 MEQ ER tablet Active diclofenac (Voltaren) 1 % topical gelIndications :Polyarthralgi a Place 2-4 g on the skin 2 (two) times a day. 50 g 1 Active aspirin (Yaritza Aspirin) 325 MG tabletIndicati ons:Antiphosph olipid antibody syndrome (CMS/HCC) Take 1 tablet (325 mg) by mouth 1 (one) time each day. 90 tablet 3 Active desvenlafaxine (Pristiq) 50 MG 24 hr tablet Take 1 tablet (50 mg) by mouth 1 (one) time each day. Active pen needle, diabetic (BD Pen Needle Micro U/F) 32G X 6 MM misc Use to inject insulin 1 time per day. 100 each 3 Active Blood Glucose Monitoring Suppl (Blood Glucose Monitor System) w/Device kitIndications :Type 2 diabetes mellitus with other specified complication, unspecified whether long distance operator insulin use ([facility]) Test 2 times each day, Dx E11.9 1 kit 024 Active Glucose Blood (Blood Glucose Test) stripIndicatio ns:Type 2 diabetes mellitus with other specified complication, unspecified whether care home insulin use ([facility]) Use as directed to test blood glucose level 2 times per day or to calibrate CGM DX E11.9 100 strip 3 Active Lancets miscIndication s:Type 2 diabetes mellitus with other specified complication, unspecified whether long distance operator insulin use ([facility]) Use to test blood glucose level 2 times per day or to calibrate CGM DX E11.9 100 each 3 024 Active buPROPion XL (Wellbutrin XL) 300 MG 24 hr tablet Active cyclobenzaprin e (Flexeril) 10 MG tablet Active Jardiance 25 MG Active glipiZIDE (Glucotrol) 10 MG tablet Active pregabalin (Lyrica) 150 MG capsule Active Continuous Glucose Sensor ([email or web address] G7 Sensor) [facility] 1 sensor every 10 (ten) days. 9 each 1 025 2025 Active insulin glargine (Lantus SoloStar) 100 UNIT/ML injection pen INJECT 40 UNITS SUBCUTANEOUSLY AT BEDTIME. TITRATE DIRECTED. MAX DAILY DOSE OF 75 UNITS 15 mL 3 025 Active Januvia 100 MG tablet TAKE ONE TABLET BY MOUTH ONCE A DAY 30 tablet Active SITagliptin (Januvia) 100 MG tablet Take 1 tablet (100 mg) by mouth daily. 30 tablet 3 025 2024 Discontinued Active Problems Problem Noted Date Diagnosed Date Neuropathy 10/17/2024 Gastroparesis 10/17/2024 Hyperlipidemia 10/17/2024 Obesity (BMI 30-39.9) 10/17/2024 Paronychia of finger 07/15/2022 Bilateral hand pain 07/15/2022 Microalbuminuria 07/22/2020 Diabetes 08/09/2019 CKD (chronic kidney disease) stage 3, GFR 30-59 ml/min 02/01/2018 Hypothyroidism 03/26/2016 Vitamin D deficiency 03/25/2016 Positive JOAN (antinuclear antibody) 03/25/2016 Chronic GERD 05/22/2015 Asthma 05/01/2015 Allergic rhinitis 04/10/2015 Encounters Date Type Department Care Team Description 02/13/2025 Refill [facility] Endocrinology [address] [place] [address] Nkechi Celeste, ENVIRONMENTAL TECHNICIAN 12/01/2024 Refill [facility] Endocrinology [address] [place] [address] Nkechi Celeste, ENVIRONMENTAL TECHNICIAN from Last 3 Months Immunizations Immunization Administration Dates Next Due Influenza, Unspecified 07/19/2017 Pneumococcal Conjugate PCV 13 07/08/2017 Pneumococcal, Unspecified 07/19/2017 Family History Medical History Relation Name Comments Autoimmune disease Father Conrad De Paz rhuemat oid arthritis Diabetes Father Conrad De Paz Rheum arthritis Father Conrad De Paz Autoimmune disease Father's Brother Warren De Paz ca ncer Multiple sclerosis Maternal Cousin Asthma Maternal Grandmother princess mclaughlin christopheen Autoimmune disease Maternal Grandmother princess stark asthma Kidney disease Mother princess de paz kidney disea se Stroke Other 1 Diabetes Other 2 Hypertension Other 3 Other cancer Other 4 Autoimmune disease Paternal Grandmother Pamela de paz cancer Relation Name Status Comments Father Conrad De Paz Father's Brother Warren De Paz Maternal Cousin Maternal Grandmother princess stark Mother princess de paz Other 1 Other 2 Other 3 Other 4 Paternal Grandmother Pamela de paz Social History Tobacco Use Types Packs/Day Years Used Date Smoking Tobacco: Former Cigarettes 1 21.8 1 989 - 07/07/2010 Passive Smoke Exposure: Current Smokeless Tobacco: Never Tobacco Cessation:Counseling Given: Not Answered Alcohol Use Standard Drinks/Week Comments Yes 3 (1 standard drink = 0.6 oz pur e alcohol) PHQ-2 Answer Date Recorded Patient Health Questionnaire-2 Score 0 06/09/2024 Comments Unknown Sex and Gender Information Value Date Recorded Sex Assigned at Not on file Legal Sex Female 6:53 PM EDT Gender Identity Not on file Sexual Orientation Not on file Last Filed Vital Signs Vital Sign Reading Time Taken Comments Blood Pressure 142/89 10/13/2024 9:54 AM EST Pulse 84 10/13/2024 9:54 AM EST Temperature 36.7 C (98.1 F) 06/09/2024 10:29 AM EDT Respiratory Rate 16 06/09/2024 10:29 AM EDT Oxygen Saturation 96% 06/09/2024 10:29 AM EDT Inhaled Oxygen Concentration - - Weight 94 kg (207 lb 3.7 oz) 10/13/2024 9:54 AM EST Height 162.6 cm (5' 4 ) 07/07/2024 9:27 AM EDT Body Mass Index 35.57 07/07/2024 9:27 AM EDT Plan of Treatment Upcoming Encounters Date Type Department Care Team (Late st Contact Info) Description 03/02/2025 12:20 PM EDT Office Visit [facility] Endocrinology [address] [place] [phone] Nkechi Celeste, ENVIRONMENTAL TECHNICIAN [address] [facility] [address] [place] [phone] 06/08/2025 10:30 AM EDT Office Visit [facility] [address] [place] [address] Vane Lim, ENVIRONMENTAL TECHNICIAN [address] [place] [address] Health Maintenance Due Date Last Done Comments [facility]-HIV Screening 1972 [facility]-/Child/Adol SDOH Screenings 1972 Diabetes: Dental Exam 1982 [facility]- SDOH Screenings 1990 [facility]-Adult SDOH Screenings 1990 [facility]-DTaP,Tdap,and Td Vaccines (1 - Tdap) 1991 [facility]-Hepatitis B Vaccines (1 of 3 - 19+ 3-dose series) 1991 CT Colonography 2017 Colonoscopy 2017 FIT-DNA 2017 FIT 2017 FOBT 2017 Sigmoidoscopy 2017 [facility]-Colorectal Cancer Screening 2017 [facility]-Pneumococcal Vaccine: 50+ Years (2 of 2 - PPSV23) 09/02/2017 07/19/2017, 07/08/2017 [facility]-Breast Cancer Screening 2022 03/23/2013 [facility]-Lung Cancer Screening 2022 [facility]-Zoster Vaccines (1 of 2) 2022 [id number] Vaccine (3 - season) 2024 01/01/2021, 12/04/2020 [facility]-Diabetes: Hemoglobin A1C 01/12/2025 10/13/2024, 07/07/2024 [facility]-Influenza Vaccine (Season Ended) 2025 07/19/2017 [facility]-Depression Screening 06/09/2025 06/09/2024 [facility]-Hepatitis C Screening Completed 12/21/2023 [facility]-Obesity Intervention Completed 025, 07/07/2024, 06/09/2024, Additional history exists HPV Vaccines Aged Out No longer eligi ble based on patient's age to complete this topic [facility]-HIB Vaccines Aged Out No longer e ligible based on patient's age to complete this topic [facility]-Hepatitis A Vaccines Aged Out No longer eligible based on patient's age to complete this topic [facility]-IPV Vaccines Aged Out No longer e ligible based on patient's age to complete this topic [facility]-Rotavirus Vaccines Aged Out No lo nger eligible based on patient's age to complete this topic Procedures Procedure Name Priority Date/Time Associated Diagnosis Comments POCT GLYCOSYLATED HEMOGLOBIN (HGB A1C) Routine 10/13/2024 10:03 AM EST Type 2 diabetes mellitus with other specified complication, unspecified whether care home insulin use (CMS/HCC) ACUTE HEPATITIS PANEL Routine 12/21/2023 11:06 AM EDT Unspecified abnormal finding in specimens from other organs, systems and tissues Elevated erythrocyte sedimentation rate Polyarthralgia Sicca syndrome (CMS/HCC) from Last 3 Months or Most Recently Relevant to Health Maintenance Results * (ABNORMAL) POCT glycosylated hemoglobin (Hb A1C) (10/13/2024 10:03 AM EST) POCT Hemoglobin A1C 7.6 <5.7% Non-Diabe tic % [facility] Kit Lot Number [id number] [facility] Kit Expiration Date 08/05/2026 [facility] Blood Venous blood specimen / Unknown 10/13/2024 10:03 AM EST us Nkechi Celeste ENVIRONMENTAL TECHNICIAN POINT OF CARE TEST ENTER /EDIT ORDERABLES Final Result Performing Organization Address [facility] Co de Phone Number [facility] [address] [place] [address] * Acute Hepatitis Panel (12/21/2023 11:06 AM EDT) Pathologist [facility] Hepatitis B Surf Antigen Negative Negative 12/21/2023 2:38 PM EDT [facility] Hepatitis C Antibody Negative Negative 12/21/2023 2:38 PM EDT [facility] Hepatitis A Antibody IgM Negative Negative 12/21/2023 2:38 PM EDT [facility] Hepatitis B Core Antibody IgM Negative Negative 12/21/2023 2:38 PM EDT [facility] Blood Venous blood specimen / Unknown Venipuncture / Unknown 12/21/2023 11:06 AM EDT 12/21/2023 11:07 AM EDT us Vane Lim ENVIRONMENTAL TECHNICIAN LAB BLOOD ORDERABLES Final Result Performing Organization Address City/[facility] Co de Phone Number [facility] [address] [place] [address] from Last 3 Months or Most Recently Relevant to Health Maintenance Insurance [employer] Care Teams Irrigation Flume Layer Relationship Specialty Start Date End Date Alissa Faria APRN [address] [place] [id number] PCP - General 04/17/24
--- NOTE | 2025-02-13 09:30 | US_ITS ---
FINAL REPORT CLINICAL HISTORY: enlarged liver FINDINGS: RIGHT UPPER QUADRANT ULTRASOUND Technique: Ultrasound images of the right upper quadrant were obtained. There is fatty infiltration of the liver. The gallbladder is absent. Common duct is normal. The right kidney is unremarkable. IMPRESSION: Fatty liver. Reviewed, Interpreted and Dictated by Robert Burciaga MD Transcribed by Anais Martinez Authenticated and [facility]
== END 2025-02-13 23:59 | disposition home or self-care (01) ==
LOC: RAD 09:17
PROVIDERS: PCP Family Medicine; Visit Provider Family Medicine
DX: K76.0 Fatty (change of) liver, not elsewhere classified (principal)
CPT/HCPCS: 76705

== ENCOUNTER 2025-05-11 13:57 | Outpatient (CLI) | payer BC, SELFPAY ==
[2025-05-11 20:44] LABS: Albumin Level 4.6 g/dl (3.5-5.0); Chloride 105 mmol/L (98-107); Sodium 141 mmol/L (136-145)
[2025-05-11 20:45] LABS: Potassium 4.1 mmoL/L (3.5-5.1)
[2025-05-11 20:47] LABS: Alanine Aminotransferase 54 U/L (12-78); Albumin/Globulin Ratio 1.4 (1.1-1.8); Anion Gap 12.1 mEq/L (5-15); Aspartate Amino Transferase 71 U/L (14-36); Bilirubin,Total 0.8 mg/dl (0.2-1.3); Blood Urea Nitrogen 13 mg/dl (7-17); Carbon Dioxide 28 mmol/L (22.0-30.0); Creatinine,Serum 0.80 mg/dl (0.52-1.04); Estimated Glomerular Filt Rate 75 ml/min (>60); GFR (African American) 91 ML/MIN (>60); Globulin 3.2 g/dL (1.3-3.2); Total Protein,Serum 7.8 g/dl (6.3-8.2)
[2025-05-11 20:48] LABS: Alkaline Phosphatase 97 U/L (38-126); Calcium 9.5 mg/dl (8.4-10.2); Cholesterol 151 mg/dl (140-200); Glucose 110 mg/dl (74-100); HDL Cholesterol 32 mg/dl (40-60); Triglycerides 251 mg/dl (30-150)
[2025-05-11 20:54] LABS: Hemoglobin A1C 6.9 % (4.0-6.0)
--- OUTSIDE RECORDS SUMMARY | 2025-05-14 09:54 | XMS_ITS | Clinical Summary ---
Author Organization [facility] Address [address] [place] [address] Care Team Providers Care Seed Sorter Name Role Phone Leann Wilks APRN Primary Care Provider [phone] Social History Tobacco Use Types Packs/Day Years Used Date Smoking Tobacco: Never Assessed Abuse Screen Answer Date Recorded Unsafe at Home or Work/School Not on file Feels Threatened by Someone? Not on file 05/2023 Does Anyone Keep You from Co ntacting Others or Doint Things Outside the Home? Not on file 06/14/2023 Physical Sign of Abuse Present Not on file 1 Housing Stability Answer Date Recorded Current Living Arrangements Not on file 05/2023 Potentially Unsafe Housing Conditions Not on ashley e 06/14/2023 Family and Community Support Answer Cedric e Recorded Help with Day-to-Day Activities Not on file 06/14/2023 Lonely or Isolated Not on file 06/14/2023 Employment Answer Date Recorded Do you want help finding or keeping work or a katelynn b? Not on file 06/14/2023 Disabilities Answer Date Recorded Concentrating, Remembering, or Making Decisions Difficulty Not on file 06/14/2023 Doing Errands Independently Difficulty Not on fi le 06/14/2023 Education Answer Date Recorded Help with school or training? Not on file Preferred Language Not on file 06/14/2023 Comments Unknown Sex and Gender Information Value Date Recorded Sex Assigned at Not on file Legal Sex Female 12:56 PM EDT Gender Identity Not on file Sexual Orientation Not on file Last Filed Vital Signs Vital Sign Reading Time Taken Comments Blood Pressure - - Pulse - - Temperature - - Respiratory Rate - - Oxygen Saturation - - Inhaled Oxygen Concentration - - Weight 95.5 kg (210 lb 8.6 oz) 08/12/2020 5:07 P M EST Height 160 cm (5' 2.99 ) 08/12/2020 5:09 PM EST Body Mass Index 37.3 08/12/2020 5:07 PM EST Plan of Treatment Health Maintenance Due Date Last Done Comments ANNUAL PHYSICAL 1972 Annual Gynecologic Pelvic an d Breast Exam 1972 TDAP/TD VACCINES (1 - Tdap) 1991 MAMMOGRAM 03/23/2015 03/23/2013, 03/23/2013 COLOGUARD 2017 COLON CANCER SCREENING 5 YEA R SIGMOIDOSCOPY 2017 COLONOSCOPY [address] CANCER SCREENING 2017 CT COLONOGRAPHY 2017 FECAL OCCULT BLOOD TEST 2017 FIT Testing (1 year) 2017 Pneumococcal Vaccine 50+ (2 of 2 - PPSV23) 09/02/2017 07/19/2017, 07/08/2017 ZOSTER VACCINE (1 of 2) 2022 COVID-19 Vaccine (3 - 2024-2 6 season) 2025 01/01/2021, 12/04/2020 INFLUENZA VACCINE 06/06/2025 07/19/2017 HEPATITIS C SCREENING Completed 12/21/2023 HEMOGLOBIN A1C Discontinued 03/02/2025, 03/2025, 07/07/2024, Additional history exists Insurance [id number] [address] MEDICAID PENDING on file Care Teams Seed Sorter Relationship Specialty Start Date End Date Leann Wilks APRN [address] [facility] [address] [place] [address] PCP - General Nurse Practitioner 08/12/20
--- OUTSIDE RECORDS SUMMARY | 2025-05-14 09:54 | XMS_ITS | Clinical Summary ---
Author Organization [facility] Address [address] [place] [address] Care Team Providers Care Clay Temperer Name Role Phone Alissa Faria APRN Primary Care Provider [phone] Allergies Active Allergy Reactions Criticality Noted Date Comments Metformin Nausea,Diarrhea High 09/30/2023 Medications pramipexole (Mirapex) 0.125 MG tablet Active albuterol 108 (90 Base) MCG/ACT inhaler Active cholecalcifero l (Vitamin D-3) 1.25 MG (60270 UT) capsule TAKE 1 CAPSULE Weekly Active [...] 150 MG tablet Active ergocalciferol 1.25 MG (92516 UT) capsule Active clobetasol (Temovate) 0.05 % ointment Apply topically. 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 ([facility]) Use as directed to test blood glucose level 2 times per day or to calibrate CGM DX E11.9 100 strip 3 Active Lancets miscIndication s:Type 2 diabetes mellitus with other specified complication, 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 ([facility]) Use to test blood glucose level 2 times per day or to calibrate CGM DX E11.9 100 each 3 Active buPROPion XL (Wellbutrin XL) 300 MG 24 hr tablet Active cyclobenzaprin e (Flexeril) 10 MG tablet 025 Active pregabalin (Lyrica) 150 MG capsule Active ARIPiprazole (Abilify) 10 MG tablet Active clonazePAM (KlonoPIN) 0.5 MG tablet Active Skyrizi Pen 150 MG/ML solution auto-injector Active tirzepatide (Mounjaro) 5 MG/0.5ML solution auto-injector solution pen-injectorIn dications:Type 2 Diabetes Mellitus Inject 0.5 mL under the skin 1 time per week. 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 TITRATE DIRECTED. 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 180 tablet 3 025 2025 Active empagliflozin (Jardiance) 25 MGIndications: Type 2 diabetes mellitus with other specified complication, unspecified whether mcfp insulin use ([facility]) Take 1 tablet by mouth daily. 90 tablet 3 025 2025 Active Continuous Glucose Sensor (Dexcom G7 Sensor) misc USE DIRECTED EVERY 10 DAYS 3 each 5 Active Continuous Glucose Sensor (Dexcom G7 Sensor) misc 1 sensor every 10 (ten) days. 9 each 1 025 2024 Discontinued Active Problems Problem Noted [...] Encounters Date Type Department Care Team Description 04/19/2025 Refill [facility] Endocrinology [address] [place] [address] Nkechi Celeste APRN 03/07/2025 Telephone [facility] Endocrinology [address] [place] [address] Marleni Perkins RN Mounjaro 5 mg PA 03/02/2025 12:20 PM EDT Office Visit [facility] Endocrinology [address] [place] [address] Nkechi Celeste, SWEATER OPERATOR Type 2 diabetes mellitus with other specified complication, unspecified whether mcfp insulin use ([facility]) (Primary Dx); Neuropathy; Hyperlipidemia, unspecified hyperlipidemia type; Obesity (BMI 30-39.9) 03/02/2025 Telephone [facility] Endocrinology [address] [place] [address] Nkechi Celeste APRN Prior-authorization/ins urance Verification 03/02/2025 Travel 02/13/2025 Refill [facility] Endocrinology [address] [place] [address] Nkechi Celeste APRN from Last 3 Months Immunizations Immunization Administration [...] Maternal Cousin Asthma Maternal Grandmother princess mclaughlin rden Autoimmune disease Maternal Grandmother princess stark asthma [...] Sign Reading Time Taken Comments Blood Pressure 124/76 03/02/2025 12:04 PM EDT Pulse 69 03/02/2025 12:04 PM EDT Temperature 36.7 C (98.1 F) 06/09/2024 10:29 AM EDT Respiratory Rate 16 06/09/2024 10:2 9 AM EDT Oxygen Saturation 96% 06/09/2024 10: 29 AM EDT Inhaled Oxygen Concentration - - Weight 92.5 kg (203 lb 14.8 oz) 025 12:04 PM EDT Height 162.6 cm (5' 4 ) 03/02/2025 12:0 4 PM EDT Body Mass Index 35 03/02/2025 12:04 PM EDT Plan of Treatment Upcoming Encounters Date Type Department Care Team (Late st Contact Info) Description 06/01/2025 12:40 PM EDT Office Visit [facility] Endocrinology [address] [place] [address] Nkechi Celeste, SWEATER OPERATOR [address] [place] [address] 06/08/2025 10:30 AM EDT Office Visit [facility] [address] [place] [address] Vane Lim, SWEATER OPERATOR [address] [place] [address] Health Maintenance Due Date Last Done Comments [...] of 2 - PPSV23) 09/02/2017 07/19/2017, 07/08/2017 [id number] Vaccine (3 - Moderna risk series) 01/29/2021 01/01/2021, 12/04/2020 [facility]-Breast Cancer Screening 2022 03/23/2013 [facility]-Lung Cancer Screening 2022 [facility]-Zoster Vaccines (1 of 2) 2022 [facility]-Influenza Vaccine (#1) 2025 07/19/2017 [facility]-Diabetes: Hemoglobin A1C 06/01/2025, 10/13/2024, 07/07/2024 [facility]-Depression Screening 06/09/2025 06/09/2024 [facility]-Hepatitis C Screening Completed 12/21/2023 [facility]-Obesity Intervention Completed 025, 03/02/2025, 03/02/2025, Additional history exists HPV Vaccines Aged Out [...] Comments POCT GLYCOSYLATED HEMOGLOBIN (HGB A1C) Routine 03/02/2025 12:22 PM EDT Type 2 diabetes mellitus with other specified complication, 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 (CMS/HCC) ACUTE HEPATITIS PANEL Routine 12/21/2023 11:06 AM EDT Unspecified abnormal finding in specimens from other organs, systems and tissues Elevated erythrocyte sedimentation rate Polyarthralgia Sicca syndrome (CMS/HCC) from Last 3 Months or Most Recently Relevant to Health Maintenance Results * POCT glycosylated hemoglobin (Hb A1C) (03/02/2025 12:22 PM EDT) Pathologist [facility] POCT Hemoglobin A1C 8.0 <5.7% Non-Diabe tic % [facility] Kit Lot Number [id number] [facility] Kit Expiration Date 01/03/2027 [facility] Blood Venous blood specimen / Unknown 03/02/2025 12:22 PM EDT Nkechi Celeste SWEATER OPERATOR POINT OF CARE TEST ENTER /EDIT ORDERABLES Final Result [facility] [address] [place] [address] * Acute Hepatitis Panel (12/21/2023 11:06 AM EDT) [facility] Hepatitis B Surf Antigen Negative Negative 12/21/2023 2:38 PM EDT [facility] Hepatitis C Antibody Negative Negative 12/21/2023 2:38 PM EDT [facility] Hepatitis A Antibody IgM Negative Negative 12/21/2023 2:38 PM EDT [facility] Hepatitis B Core Antibody IgM Negative Negative 12/21/2023 2:38 PM EDT [facility] Blood Venous blood specimen / Unknown Venipuncture / Unknown 12/21/2023 11:06 AM EDT 12/21/2023 11:07 AM EDT Vane Lim SWEATER OPERATOR LAB BLOOD ORDERABLES Final Result [facility] [address] [place] [address] from Last 3 Months or Most Recently Relevant to Health Maintenance Insurance [employer] Care Teams Clay Temperer Relationship Specialty Start Date End Date Alissa Faria APRN [address] [place] [address] PCP - General 04/17/24
--- OUTSIDE RECORDS SUMMARY | 2025-05-14 09:54 | XMS_ITS | Encounter Summary ---
Author Organization [facility] [place] [address] Care Team Providers Care Engine Service Repairer Name Role Phone Amy Ervin MD Unavailable [phone] Anshul Stephen MD Primary Care Provider + [phone] Luis Daniel Silvestre MD Unavailable [phone] Encounter Details Date Type Department Care Team (Late st Contact Info) Description 06/15/2017 Orders Only [facility] Ar[facility] Edg [address] [facility] [address] [place] [address] Luis Daniel Silvestre MD [address] [place] [address] Social History Tobacco Use Types [...] Silvestre MD CARDIAC CATH ORDERABLES Final Result [facility] [address] [place] [address] documented in this encounter Visit Diagnoses Not on filedocumented in this encounter Care Teams Engine Service Repairer Relationship Specialty Start Date End Date Anshul Stephen MD [address] [place] [address] PCP - General Emergency Medicine 05/20/17 Amy Ervin MD [address] [place] [address] [place] [address] Consulting Physician Internal Medicine - Clinical Cardiac Electrophysiology 05/20/17 07/25/17 Luis Daniel Silvestre MD [address] [place] [address] Consulting Physician Internal Medicine - Clinical Cardiac Electrophysiology 07/26/17 documented as of this encounter
--- OUTSIDE RECORDS SUMMARY | 2025-05-14 09:54 | XMS_ITS | Clinical Summary ---
Author Organization [facility] Address [address] [place] [address] Phone Care Team Providers Care Taxi Proprietor Name Role Phone Anshul Stephen MD Primary Care Provider + [phone] Luis Daniel Silvestre MD Unavailable [phone] Allergies No known active allergies Medications VENTOLIN HFA 90 mcg/actuation Inhl HFA Aerosol Inhaler Inhale 2 Puffs into the lungs every 6 hours as needed. 04/28/2017 Active DULoxetine (CYMBALTA) 20 mg Oral Capsule, Delayed Release(E.C.) Take 20 mg by mouth daily. 04/28/2017 Active fluticasone (FLONASE) 50 mcg/actuation Nasl [place], Suspension 1 [place] by Nasal route daily as needed. 04/28/2017 [...] Zoster (1 of 2) 2022 COVID-19 Vaccine (1 - 2023-2 5 season) 2025 Influenza Vaccine (#1) 2025 8 (Postponed) Meningococcal B Vaccine Aged Out No [...] Impressions 03/24/2013 3:51 PM EDT : Negative (OJN-[id number]-5) ~ RECOMMENDATION: Routine screening mammogram in 1 [...] densities. No suspicious calcifications. ~ IMPRESSION: Negative (DTA-Vvrxnopl-3) ~ RECOMMENDATION: Routine screening mammogram in 1 [...] and CAD. Nicholas Bains Sr., IM MAMMOGRAPHY ORDAimee PHIPPS Final Result from Last 3 Months or Most Recently Relevant to Health Maintenance Insurance [facility] CHO[facility] PLUS [facility] PLUS Care Teams Taxi Proprietor Relationship Specialty Start Date End Date Anshul Stephen MD [address] [facility] [address] [place] [address] PCP - General Emergency Medicine 05/20/17 Luis Daniel Silvestre MD [address] [place] [address] Consulting Physician Internal Medicine - Clinical Cardiac Electrophysiology 07/26/17
--- OUTSIDE RECORDS SUMMARY | 2025-05-14 09:54 | XMS_ITS | Encounter Summary ---
Author Organization [facility] Address [address] [place] [address] Care Team Providers Care Harness Racing Handicapper Name Role Phone Alissa Faria WILTON Primary Care Provider [phone] Reason for Visit * Reason Comments Med Refill Encounter Details Date Type Department Care Team (Late st Contact Info) Description 04/19/2025 Refill [facility] Endocrinology [address] [place] [address] Nkechi Celeste OIL AND GAS PRINCIPAL [address] [facility] [address] [place] [address] Social History Tobacco Use Types [...] encounter Miscellaneous Notes * Telephone Encounter - Juliann Stover - 04/19/2025 8:34 AM EDT Refill request does not meet protocol. Sending to clinic for review. Additional info: Medication not on protocol. documented in this encounter Plan of Treatment Upcoming Encounters Date Type Department Care Team (Late st Contact Info) Description 06/01/2025 12:40 PM EDT Office Visit [facility] Endocrinology [address] [place] [address] Nkechi Celeste, OIL AND GAS PRINCIPAL [address] [place] [address] 06/08/2025 10:30 AM EDT Office Visit [place] [facility] [address] [place] [address] Vane Lim, OIL AND GAS PRINCIPAL [address] [place] [address] documented as of this encounter Visit Diagnoses Not on filedocumented in this encounter Additional Health Concerns Assessment Noted Time A fall risk assessment has been complete d for the patient 06/09/2024 10:35 AM EDT A Body Mass Index follow-up plan has been documented for the patient 03/02/2025 1:18 PM EDT documented as of this encounter Care Teams Harness Racing Handicapper Relationship Specialty Start Date End Date Alissa Faria APRN [address] [place] [address] PCP - General 04/17/24 documented as of this encounter
== END 2025-05-11 23:59 ==
LOC: LAB.DROPOF 05-14 09:50
PROVIDERS: PCP Family Medicine; Visit Provider Family Medicine
DX: E78.5 Hyperlipidemia, unspecified (principal); E11.9 Type 2 diabetes mellitus without complications; E66.9 Obesity, unspecified
CPT/HCPCS: 80053; 80061; 82043; 82570; 83036

== ENCOUNTER 2025-05-23 13:00 | Outpatient (CLI) | payer BC, SELFPAY ==
--- OUTSIDE RECORDS SUMMARY | 2025-05-24 11:31 | XMS_ITS | Encounter Summary ---
Author Organization [place] [address] Care Team Providers Care Bag Making Machine Tender Name Role Phone Amy Ervin MD Unavailable [phone] Anshul Stephen MD Primary Care Provider + [phone] Luis Daniel Silvestre MD Unavailable [phone] Encounter Details Date Type Department Care Team (Late st Contact Info) Description 06/15/2017 Orders Only [facility] Arrhythmia Ctr Edg [address] [facility] [address] [place] [address] Luis Daniel Silvestre MD [address] [place] [address] Social History Tobacco Use Types [...] Silvestre MD CARDIAC CATH ORDERABLES Final Result [facility] [address] [place] [address] documented in this encounter Visit Diagnoses Not on filedocumented in this encounter Care Teams Bag Making Machine Tender Relationship Specialty Start Date End Date Anshul Stephen MD [address] [place] [address] PCP - General Emergency Medicine 05/20/17 Amy Ervin MD [address] [place] [address] [place] [address] Consulting Physician Internal Medicine - Clinical Cardiac Electrophysiology 05/20/17 07/25/17 Luis Daniel Silvestre MD [address] [place] [address] Consulting Physician Internal Medicine - Clinical Cardiac Electrophysiology 07/26/17 documented as of this encounter
--- OUTSIDE RECORDS SUMMARY | 2025-05-24 11:31 | XMS_ITS | Encounter Summary ---
Author Organization [facility] Address [address] [place] [address] Care Team Providers Care Dry End Tester Name Role Phone Alissa Faria WILTON Primary Care Provider [phone] Reason for Visit * Reason Comments Med Refill Encounter Details Date Type Department Care Team (Late st Contact Info) Description 04/19/2025 Refill [facility] Endocrinology [address] [place] [address] Nkechi Celeste BEAUTY ADVISOR [address] [facility] [address] [place] [address] Social History Tobacco Use Types [...] 12:40 PM EDT Office Visit [facility] Endocrinology [address] [place] [address] Nkechi Celeste, BEAUTY ADVISOR [address] [place] [address] 06/08/2025 10:30 AM EDT Office Visit [place] [facility] [address] [place] [address] Vane Lim, BEAUTY ADVISOR [address] [place] [address] documented as of this encounter Visit Diagnoses Not on filedocumented in this encounter Additional Health Concerns Assessment Noted Time A fall risk assessment has been complete d for the patient 06/09/2024 10:35 AM EDT A Body Mass Index follow-up plan has been documented for the patient 03/02/2025 1:18 PM EDT documented as of this encounter Care Teams Dry End Tester Relationship Specialty Start Date End Date Alissa Faria APRN [address] [place] [address] PCP - General 04/17/24 documented as of this encounter
--- OUTSIDE RECORDS SUMMARY | 2025-05-24 11:31 | XMS_ITS | Clinical Summary ---
Author Organization [facility] Address [address] [place] [address] Phone Care Team Providers Care Stock Room Manager Name Role Phone Anshul Stephen MD Primary Care Provider + [phone] Luis Daniel Silvestre MD Unavailable [phone] Allergies No known active allergies Medications VENTOLIN HFA 90 mcg/actuation Inhl HFA Aerosol Inhaler Inhale 2 Puffs into the lungs every 6 hours as needed. 04/28/2017 Active DULoxetine (CYMBALTA) 20 mg Oral Capsule, Delayed Release(E.C.) Take 20 mg by mouth daily. 04/28/2017 Active fluticasone (FLONASE) 50 mcg/actuation Nasl [place], Suspension 1 [place] by Nasal route daily as needed. 04/28/2017 [...] Impressions 03/24/2013 3:51 PM EDT : Negative (MFT-Esubgleg-4) ~ RECOMMENDATION: Routine screening mammogram in 1 [...] densities. No suspicious calcifications. ~ IMPRESSION: Negative (PPE-Dijvjbnu-1) ~ RECOMMENDATION: Routine screening mammogram in 1 [...] Most Recently Relevant to Health Maintenance Insurance [facility] CHOICE PLUS [facility] CHOICE PLUS Care Teams Stock Room Manager Relationship Specialty Start Date End Date Anshul Stephen MD [address] [facility] [address] [place] [address] PCP - General Emergency Medicine 05/20/17 Luis Daniel Silvestre MD [address] [facility] [place] [address] Consulting Physician Internal Medicine - Clinical Cardiac Electrophysiology 07/26/17
--- OUTSIDE RECORDS SUMMARY | 2025-05-24 11:31 | XMS_ITS | Clinical Summary ---
Author Organization [facility] Address [address] [place] [address] Care Team Providers Care Occupational Health Rn Name Role Phone Leann Wilks APRN Primary Care Provider [phone] Social History Tobacco Use Types Packs/Day Years [...] 07/08/2017 ZOSTER VACCINE (1 of 2) 2022 INFLUENZA VACCINE 04/06/2025 07/19/2017 HEPATITIS C SCREENING Completed 12/21/2023 HEMOGLOBIN A1C Discontinued 03/02/2025, 02/03/2025, 07/07/2024, Additional history exists Insurance MEDICAID PENDING on file Care Teams Occupational Health Rn Relationship Specialty Start Date End Date Leann Wilks APRN [address] [facility] [address] [place] [address] PCP - General Nurse Practitioner 08/12/20
--- OUTSIDE RECORDS SUMMARY | 2025-05-24 11:31 | XMS_ITS | Clinical Summary ---
Author Organization [facility] Address [address] [place] [address] Care Team Providers Care Inventory Control Clerk Name Role Phone Alissa Faria APRN Primary Care Provider [phone] Allergies Active Allergy Reactions Criticality Noted Date Comments Metformin Nausea,Diarrhea High 09/30/2023 Medications pramipexole (Mirapex) 0.125 MG tablet 08/16/20 20 Active albuterol 108 (90 Base) MCG/ACT inhaler 08/19/20 20 Active cholecalciferol (Vitamin D-3) 1.25 MG (26090 UT) capsule TAKE 1 CAPSULE Weekly 08/16/20 20 Active DULoxetine (Cymbalta) [address] capsule 03/22/20 21 Active furosemide (Lasix) 80 MG tablet 03/22/20 21 Active Emgality 120 MG/ML injection 05/07/20 21 Active Gvoke HypoPen 2-Pack 1 MG/0.2ML solution auto-injector 03/19/20 21 Active ipratropium-alb uterol (Duo-Neb) 0.5-2.5 mg/3 mL nebulizer solution 04/25/20 21 Active omeprazole (PriLOSEC) [address] capsule 05/07/20 21 Active SUMAtriptan (Imitrex) 50 MG tablet TAKE ONE TABLET BY MOUTH FOR 1 DOSE NEEDED FOR HEADACHE. DO NOT EXCEED 9 IN 30 DAYS 10/25/19 19 Active zolpidem (Ambien) 10 MG tablet TAKE 1 TABLET AT BEDTIME NEEDED FOR SLEEP. 08/16/20 20 Active Vibegron (Gemtesa) 75 MG tablet 1 (one) time each day. Active Ubrelvy 100 MG tablet 06/22/20 Active rOPINIRole (Requip) 1 MG tablet 06/22/20 Active phentermine (Adipex-P) 37.5 MG tablet 07/03/20 Active mupirocin (Bactroban) 2 % ointment 07/06/20 Active NovoLOG 100 UNIT/ML injection USE DIRECTED PER sliding scale (Max daily DOSE = 80 units) 12/23/19 Active Insulin Disposable Pump (Omnipod DASH Pods, Gen 4,) misc USE DIRECTED (CHANGE omnipod every 72 hours) 03/26/20 Active fluconazole (Diflucan) 150 MG tablet 07/13/20 Active ergocalciferol 1.25 MG (74130 UT) capsule 06/22/20 Active clobetasol (Temovate) 0.05 % ointment Apply topically. 11/30/19 24 Active Continuous Blood Gluc Artist Blacksmith (Dexcom G7 Artist Blacksmith) device 01/30/20 23 Active Continuous Blood Gluc Transmit (Dexcom G6 transmitter) misc 11/24/19 24 Active FLUoxetine (PROzac) 20 MG capsule Take 1 capsule (20 mg) by mouth 1 (one) time each day. 12/20/19 24 Active promethazine (Phenergan) 25 MG tablet 1 tablet (25 mg). Patient reports taking only as needed for nausea 09/30/19 24 Active simvastatin (Zocor) 5 MG tablet Take 1 tablet (5 mg) by mouth every night. 08/12/20 23 Active azelastine (Astelin) 0.1 % nasal spray 01/21/20 24 Active potassium chloride CR (Klor-Con M20) 20 MEQ ER tablet 01/25/20 24 Active diclofenac (Voltaren) 1 % topical gelIndications: Polyarthralgia Place 2-4 g on the skin 2 (two) times a day. 50 g 1 06/09/20 24 Active aspirin (Yaritza Aspirin) 325 MG tabletIndicatio ns:Antiphosphol ipid antibody syndrome (CMS/HCC) Take 1 tablet (325 mg) by mouth 1 (one) time each day. 90 tablet 3 06/16/20 24 Active desvenlafaxine (Pristiq) 50 MG 24 hr tablet Take 1 tablet (50 mg) by mouth 1 (one) time each day. 06/23/20 24 Active pen needle, diabetic (BD Pen Needle Micro U/F) 32G X 6 MM misc Use to inject insulin 1 time per day. 100 each 3 07/07/20 24 Active Blood Glucose Monitoring Suppl (Blood Glucose Monitor System) w/Device kitIndications: Type 2 diabetes mellitus with other specified complication, unspecified whether correction insulin use ([facility]) Test 2 times each day, Dx E11.9 1 kit 07/07/20 24 Active Glucose Blood (Blood Glucose Test) stripIndication s:Type 2 diabetes mellitus with other specified complication, unspecified whether prime broker insulin use (CMS/[facility]) Use as directed to test blood glucose level 2 times per day or to calibrate CGM DX E11.9 100 strip 3 07/07/20 24 Active Lancets miscIndications :Type 2 diabetes mellitus with other specified complication, unspecified whether prime broker insulin use ([facility]) Use to test blood glucose level 2 times per day or to calibrate CGM DX E11.9 100 each 3 07/07/20 24 Active buPROPion XL (Wellbutrin XL) 300 MG 24 hr tablet 09/22/19 25 Active cyclobenzaprine (Flexeril) 10 MG tablet 09/27/19 25 Active pregabalin (Lyrica) 150 MG capsule 09/04/20 24 Active ARIPiprazole (Abilify) 10 MG tablet 03/02/20 25 Active clonazePAM (KlonoPIN) 0.5 MG tablet 03/02/20 25 Active Skyrizi Pen 150 MG/ML solution auto-injector 01/05/20 25 Active tirzepatide (Mounjaro) 5 MG/0.5ML solution auto-injector solution pen-injectorInd ications:Type 2 Diabetes Mellitus Inject 0.5 mL under the skin 1 time per week. 2 mL 5 04/01/20 25 026 Active insulin glargine (Lantus SoloStar) 100 UNIT/ML injection penIndications: Type 2 diabetes mellitus with other specified complication, unspecified whether prime broker insulin use ([facility]) INJECT 40 UNITS SUBCUTANEOUSLY AT BEDTIME. TITRATE DIRECTED. MAX DAILY DOSE OF 75 UNITS 15 mL 3 03/02/20 25 Active glipiZIDE (Glucotrol) 10 MG tabletIndicatio ns:Type 2 diabetes mellitus with other specified complication, unspecified whether correction insulin use ([facility]) Take 1 tablet by mouth 2 times a day before meals. 180 tablet 3 03/02/20 25 026 Active empagliflozin (Jardiance) 25 MGIndications:T ype 2 diabetes mellitus with other specified complication, unspecified whether correction insulin use ([facility]) Take 1 tablet by mouth daily. 90 tablet 3 03/02/20 25 026 Active Continuous Glucose Sensor (Dexcom G7 Sensor) misc USE DIRECTED EVERY 10 DAYS 3 each 5 04/19/20 25 Active Active Problems Problem Noted Date Diagnosed [...] Type Department Care Team Description 04/19/2025 Refill [facility] [address] [place] [address] Nkechi Celeste APRN 03/07/2025 Telephone [facility] [address] [place] [address] Marleni Perkins RN Mounjaro 5 mg PA 03/02/2025 12:20 PM EDT Office Visit [facility] [address] [place] [address] Nkechi Celeste, PREPARER MAKING DEPARTMENT Type 2 diabetes mellitus with other specified complication, unspecified whether correction insulin use ([facility]) (Primary Dx); Neuropathy; Hyperlipidemia, unspecified hyperlipidemia type; Obesity (BMI 30-39.9) 03/02/2025 Telephone [facility] [address] [place] [phone] Nkechi Celeste APRN Prior-authorization/ins urance Verification 03/02/2025 Travel from Last 3 Months Immunizations Immunization Administration [...] sclerosis Maternal Cousin Asthma Maternal Grandmother princess lynn son teerick Autoimmune disease Maternal Grandmother princess garcia teerick asthma Kidney disease Mother princess de paz kidney disea se Stroke Other 1 Diabetes Other 2 Hypertension Other 3 Other cancer Other 4 Autoimmune disease Paternal Grandmother Pamela de paz cancer Relation Name Status Comments Father Conrad De Paz Father's Brother Warren De Paz Maternal Cousin Maternal Grandmother princess juarez teerick Mother princess de paz Other 1 Other [...] Description 06/01/2025 12:40 PM EDT Office Visit [facility] [address] [place] [id number] Nkechi Celeste, PREPARER MAKING DEPARTMENT [address] [place] [address] 06/08/2025 10:30 AM EDT Office Visit [facility] [address] [place] [address] Vane Lim, PREPARER MAKING DEPARTMENT [address] [place] [address] Health Maintenance Due Date Last [...] Vaccine: 50+ Years (2 of 2 - PPSV23, PCV20, or PCV21) 09/02/2017 07/19/2017, 07/08/2017 [id number] Vaccine (3 - Moderna risk series) 01/29/2021 [...] mellitus with other specified complication, unspecified whether correction insulin use (CMS/HCC) ACUTE HEPATITIS PANEL Routine 12/21/2023 11:06 AM EDT Unspecified abnormal finding in specimens from other organs, systems and tissues Elevated erythrocyte sedimentation rate Polyarthralgia Sicca syndrome (CMS/HCC) from Last 3 Months or Most Recently Relevant to Health Maintenance Results * POCT glycosylated hemoglobin (Hb A1C) (03/02/2025 12:22 PM EDT) POCT Hemoglobin A1C 8.0 <5.7% Non-Diabe tic % [facility] [facility] Kit Lot Number [id number] [facility] Kit Expiration Date 01/03/2027 [facility] Blood Venous blood specimen / Unknown 03/02/2025 12:22 PM EDT us Nkechi Celeste PREPARER MAKING DEPARTMENT POINT OF CARE TEST ENTER /EDIT ORDERABLES Final Result Performing Organization Address City/[facility]/ZIP Co de Phone Number HEALTHCARE [facility] [address] [place] [address] * Acute Hepatitis Panel (12/21/2023 11:06 AM EDT) Hepatitis B Surf Antigen Negative Negative 12/21/2023 2:38 PM EDT [facility] Hepatitis C Antibody Negative Negative 12/21/2023 2:38 PM EDT [facility] Hepatitis A Antibody IgM Negative Negative 12/21/2023 2:38 PM EDT [facility] Hepatitis B Core Antibody IgM Negative Negative 12/21/2023 2:38 PM EDT [facility] Blood Venous blood specimen / Unknown Venipuncture / Unknown 12/21/2023 11:06 AM EDT 12/21/2023 11:07 AM EDT us Vane Lim PREPARER MAKING DEPARTMENT LAB BLOOD ORDERABLES Final Result Performing Organization Address City/[facility]/ZIP Co de Phone Number HEALTHCARE LAB [address] [place] [address] from Last 3 Months or Most Recently Relevant to Health Maintenance Insurance ANTHEM Care Teams Inventory Control Clerk Relationship Specialty Start Date End Date Alissa Faria APRN [address] [place] [address] PCP - General 04/17/24
== END 2025-05-23 23:59 ==
LOC: LAB.DROPOF 05-24 11:29
PROVIDERS: PCP Nurse Practitioner; Visit Provider Nurse Practitioner
DX: N39.0 Urinary tract infection, site not specified (principal)
CPT/HCPCS: 87086; 87088

== ENCOUNTER 2025-05-30 09:42 | Day surgery (SDC) | payer BC, SELFPAY ==
--- NOTE | 2025-05-27 12:18 | P.HP_ITS ---
History of Present Illness *Admission Date: 05/30/25 *Reason for visit:: Personal history of adenomatous colon polyps *History of present illness: Mrs. Leija is a 54-year-old female who is here for screening colonoscopy. She more recently has noted bright red rectal bleeding in the commode that can occur 2 or 3 times a week. The patient did have a colonoscopy with ri in June 2018 and at that time had loose bowel movements with urgency and some incontinence. She also was having some occasional bright red rectal bleeding once a month at that time. She was having cramps. Her colonoscopy showed 2 polyps (small tubular adenomas x 2). She also had grade 1 internal hemorrhoids and mild left- sided diverticulosis. The patient's last colonoscopy was with me in July 2023 and she had 2 polyps (6 and 8 mm tubular adenomas in the descending colon) which were removed. The patient presently reports constipation and sometimes has to use an enema. She is on fiber pills but does not take anything else for her constipation. She does get some bloating, lower abdominal discomfort and nausea. She reports no weight loss or family history of colitis, Crohn's disease or colon cancer. She did have an EGD with Katelynn Benoit MD in December 2023 because of her persistent nausea and vomiting. The examination showed some retained food content in the body of the stomach but was otherwise unremarkable. He did indicate that this was gastric dysmotility/gastroparesis exacerbated by Ozempic. [facility] Disclaimer: The information contained in this section may have been updated after the patient was seen, as this information can be updated by other users. 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 Capsulitis of ankle Anterior pleuritic pain Neuropathy Obesity (BMI 30-39.9) Migraine Diabetes Fibromyalgia Surgical History History of cholecystectomy History of surgery History of surgery Status post surgical removal of nail matrix of toe History of partial hysterectomy H/O hysterectomy with oophorectomy Family History Other No significant family history Social History Smoking Status: Former smoker years smoked: 25 second hand exposure: No alcohol intake: never counseling given: No substance use type: marijuana counseling given: No (she might smoke a joint every now and then; when with her nephew) current occupational status: employed Travel in the last 8 weeks?: None adopted: No caregiver/support person: Yes foster care: No household members: spouse housing: house lives independently: Yes marital status: number of children: 2 number of grandchildren: 7 education level: college current occupation: [employer] current occupational exposures/hazards: No Hx Recent Travel: No sexually active: Yes caffeine: Yes physical activity: none working smoke detector in home: Yes fire extinguisher in home: No carbon monox detector in home: Yes firearms in home: Yes firearms unloaded and locked: Yes do you feel safe at home: Yes victim of physical abuse: No victim of emotional abuse: No victim of sexual abuse: No would you like helpful sources: No Have you lived/traveled outside [place] in past 30 days?: No Contact w/someone who lives/traveled outside US past 30 days?: No Exposure to someone with infectious disease in past 14 days?: No Do you have a fever (greater than 100.4 F or 38 C)?: No Have you tested positive for COVID-19?: No Exposed to someone with COVID-19 in past 14 days?: No Do you have a sore throat?: No Do you have a cough?: No Do you have any weakness?: No Are you experiencing any nausea/vomitting?: No Do you have any diarrhea?: No Are you experiencing any unusual bleeding?: No Do you have any muscle aches/pain?: No Do you have any abdominal pain?: No Are you experiencing loss of taste or smell?: No Other Medical History Have you received the Flu Vaccine for this season: No Have you received the Pneumonia Vaccine: No Review of Systems Review of Systems Review of systems (narrative): Negative *Cardiovascular Comments: Negative *Gastrointestinal Comments: Negative *Genitourinary Comments: Negative *Musculoskeletal Comments: Negative *Neurologic Comments: Negative Meds Home Medications and Allergies Home Medications ?Medication ?Instructions ?Recorded ?Confirmed ?Type blood-glucose,senior javascript engineer,cont #1 ea 04/30/23 05/23/25 Rx (Dexcom G6 Managing Partner [employer]) ubrogepant 100 mg tablet (Ubrelvy) 100 mg PO DAILYP [place] N Migraine 01/21/24 05/23/25 Rx Headache #14 tabs blood-glucose transmitter (Dexcom #1 ea 06/23/2405/23 Rx G6 Transmitter device) duloxetine 20 mg capsule,delayed See Rx Instructions . Route 07/25/24 05/23/25 Rx release .COMPLEX #180 caps blood-glucose sensor (Dexcom G6 #3 ea 07/26/24 5 Rx Sensor device) blood sugar diagnostic (OneTouch #10 ea 08/25/2405/23 History Ultra Test strips) blood-glucose meter (OneTouch #1 ea 08/25/24 05/23/25 History Ultra2 Meter) lancets 33 gauge (OneTouch Delica #100 ea 08/25/24 History Plus Lancet) pen needle, diabetic 32 gauge x #100 ea 08/25/2405/23 History 1/4 (BD Ultra-Fine Micro Pen Needle) glipizide 10 mg tablet See Rx Instructions .Route 0 12/28/24 05/23/25 Rx .COMPLEX #60 tabs lidocaine 4 % topical patch 1 patch topical DAILY PRN pain #10 01/04/25 05/23/25 Rx ea empagliflozin 25 mg tablet See Rx Instructions .Route 01/17/25 05/23/25 Rx (Jardiance) .COMPLEX #90 tabs furosemide 80 mg tablet See Rx Instructions .Route 0 01/17/25 05/23/25 Rx .COMPLEX #90 tabs simvastatin 5 mg tablet See Rx Instructions .Route 0 01/17/25 05/23/25 Rx .COMPLEX #90 tabs albuterol sulfate 90 mcg/actuation 2 inh inhalation Q6 H PRN shortness 03/08/25 05/23/25 Rx aerosol inhaler (Ventolin HFA) of breath or wheezing 9 0 days #8.5 grams budesonide-formoterol HFA 160 2 puff inhalation BID 90 days 03/08/25 05/23/25 Rx mcg-4.5 mcg/actuation aerosol #10.2 grams inhaler ergocalciferol (vitamin D2) 1,250 See Rx Instructions .Route 03/19/25 05/23/25 Rx mcg (50,000 unit) capsule .COMPLEX #4 caps cyclobenzaprine 10 mg tablet See Rx Instructions .Rout e 03/20/25 05/23/25 Rx .COMPLEX #30 tabs aripiprazole 5 mg tablet (Abilify) 10 mg (2 x 5 mg) PO DAILY bipolar 05/03/25 05/23/25 Rx disorder 30 days #60 tabs Lyrica 150 mg capsule (pregabalin) 150 mg PO BID #60 c aps 05/11/25 05/23/25 Rx clobetasol 0.05 % scalp solution 1 applic topical FRANCIE Y 05/11/25 05/23/25 History eszopiclone 1 mg tablet (Lunesta) 1 mg PO HS #30 tabs 05/11/25 05/23/25 Rx insulin glargine 100 unit/mL (3 70 unit SQ DAILY 05/1105/23/25 History mL) subcutaneous pen (Lantus Solostar U-100 Insulin) omeprazole 40 mg capsule,delayed 40 mg PO DAILY 05/23/25 History release quetiapine 50 mg tablet 100 mg (2 x 50 mg) PO QHS #6 0 tabs 05/11/25 05/23/25 Rx risankizumab-rzaa 150 mg/mL 150 mg SQ WEEKLY 05/11/25 05/23/25 History subcutaneous pen injector (Flory) tirzepatide 5 mg/0.5 mL See Rx Instructions .Route . COMPLEX 05/11/25 05/23/25 History subcutaneous pen injector (Neto) clobetasol 0.05 % topical ointment See Rx Instructions .Route 05/22/25 05/23/25 Rx .COMPLEX #60 grams potassium chloride 20 mEq See Rx Instructions .Route 0 05/22/25 05/23/25 Rx tablet,extended release(part/cryst) .COMPLEX #30 tabs nitrofurantoin 100 mg PO Q12H 7 days #14 ca ps 05/23/25 05/23/25 Rx monohydrate/macrocrystals 100 mg capsule (Macrobid) phenazopyridine 200 mg tablet 200 mg PO Q8H 2 days #6 tabs 05/23/25 05/23/25 Rx (Pyridium) New Prescriptions to Start Prescriptions: Allergies Allergy/AdvReac Type Severity Reaction Status Date / Time metformin AdvReac Intermediate abd Verified 05/30/25 10:37 pain,diarrhea Exam *Routine HEENT Exam Head: Present normocephalic Eye: Present EOMI and PERRL ENT: Present mucous membranes moist *Routine Neck Exam Neck: Present supple *Routine Respiratory Exam Respiratory: Present CTA bilaterally *Routine Cardiovascular Exam Cardiovascular: Present RRR *Routine Abdominal Exam Abdominal: Present soft and normoactive bowel sounds; Absent tenderness *Routine Rectal Exam Rectal:: deferred *Routine Genitalia Exam Genitalia:: deferred *Routine Extremities Exam Extremities: Absent cyanosis, clubbing or edema *Routine Skin Exam Skin: Present warm; Absent rash *Routine Neurological Exam Neurological: Present alert and oriented X3 Assessment and Plan *Assessment and plan (1) Personal history of adenomatous and serrated colon polyps: Status: Acute Category: Medical Code(s): Z86.0101 - Personal history of adenomatous and serrated colon polyps (2) Internal hemorrhoid, bleeding: Status: Acute Category: Medical Code(s): K64.8 - Other hemorrhoids Plan A/P: 1. Personal history of adenomatous colon polyps is the preprocedural diagnosis. The patient also has some fairly frequent hemorrhoidal bleeding the patient will be anesthetized/sedated using MAC sedation. The patient has been seen and examined. Cardiac and lung assessment prior to the examination is stable. Proceed with planned screening colonoscopy.
--- NOTE | 2025-05-30 07:06 | HMH.PROCNOTE ---
[facility] Procedure Note Date: 05/30/25 Time: 11:34 Procedure Note:: Colonoscopy Procedure Report: Colonoscopy with cold snare polypectomy and monopolar ablation/coagulation of internal hemorrhoids Endoscopist: oMo Shields II, MD Referring physician: ZEFERINO Chavez Date of Procedure: May 30, 2025 Equipment: Olympus [id number] adult colonoscope Sedation: MAC sedation Indication: Mrs. Leija is a 54-year-old female who is here for screening colonoscopy. She more recently has noted bright red rectal bleeding in the commode that can occur 2 or 3 times a week. The patient did have a colonoscopy with wi in June 2018 and at that time had loose bowel movements with urgency and some incontinence. She also was having some occasional bright red rectal bleeding once a month at that time. She was having cramps. Her colonoscopy showed 2 polyps (small tubular adenomas x 2). She also had grade 1 internal hemorrhoids and mild left-sided diverticulosis. The patient's last colonoscopy was with wi in July 2023 and she had 2 polyps (6 and 8 mm tubular adenomas in the descending colon) which were removed. The patient presently reports constipation and sometimes has to use an enema. She is on fiber pills but does not take anything else for her constipation. She does get some bloating, lower abdominal discomfort and nausea. She reports no weight loss or family history of colitis, Crohn's disease or colon cancer. She did have an EGD with Katelynn Benoit MD in December 2023 because of her persistent nausea and vomiting. The examination showed some retained food content in the body of the stomach but was otherwise unremarkable. He did indicate that this was gastric dysmotility/gastroparesis exacerbated by Ozempic. Procedure: Prior to the procedure, a history and physical exam was performed, and patient's medications and allergies were reviewed. The risks, benefits and alternatives of the sedation and procedure were discussed with the patient. All questions were answered and informed consent was obtained. The patient was brought to the procedure room. Patient identification and proposed procedure were verified by the physician and the nurse. The patient was placed in a left lateral decubitus position and the scope was passed under direct vision. Throughout the procedure, the patient's blood pressure, pulse, and oxygen saturations were monitored continuously. The colonoscopy was accomplished without difficulty. The patient tolerated the procedure well. Findings: On digital rectal examination there was normal rectal tone. There were no external hemorrhoids. The colonoscope was introduced through the anal canal to the rectum and advanced to the cecum. The ileocecal valve and appendiceal orifice were identified. The scope was advanced a short distance into the ileum which appeared grossly normal. The scope was then withdrawn into the colon. There were 2 polyps (ascending x 1 (8 mm) and sigmoid x 1 (3 mm)). These were both removed via cold snare polypectomy. The remaining cecum, ascending and transverse colon and mucosa were grossly normal. There were very mildly scattered diverticuli throughout the descending and sigmoid colon (LEFT colon). The rectum itself was normal. Upon retroflexion within the rectum there were grade 2 internal hemorrhoids. 3 columns of hemorrhoids were ablated/coagulated using monopolar ablation. The preparation was fair throughout with [place] Preparation Score of 7 out of 9. The cecal time was 14 minutes. Impression: 1. Colonic polyps x 2 (3 and 8 mm) 2. Mild left-sided diverticulosis 3. Grade 2 internal hemorrhoids status post monopolar ablation/coagulation Plan: I will follow-up the polyp histology and recommend repeat screening/surveillance colonoscopy again in 5 years. I would encourage a fiber bowel regimen on a long-term daily maintenance basis.
[2025-05-30 10:43] VITALS: BP 114/66; PULSE 73; RESP 16; TEMP 36.1; O2SAT 97
[2025-05-30 10:51] VITALS: BMI 34.4
[2025-05-30] MEDS: LACTATED RINGERS 1000ML 1,000 ML 50 ML IV (10:53)
--- NOTE | 2025-05-30 10:59 | EXP.ANES.CKL ---
[facility] Disclaimer: The information contained in this section may have been updated after the patient was seen, as this information can be updated by other users. 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 Capsulitis of ankle Anterior pleuritic pain Neuropathy Obesity (BMI 30-39.9) Migraine Diabetes Fibromyalgia Surgical History History of cholecystectomy History of surgery History of surgery Status post surgical removal of nail matrix of toe History of partial hysterectomy H/O hysterectomy with oophorectomy Family History Other No significant family history Social History Smoking Status: Former smoker years smoked: 25 second hand exposure: No alcohol intake: never counseling given: No substance use type: marijuana counseling given: No (she might smoke a joint every now and then; when with her nephew) current occupational status: employed Travel in the last 8 weeks?: None adopted: No caregiver/support person: Yes foster care: No household members: spouse housing: house lives independently: Yes marital status: number of children: 2 number of grandchildren: 7 education level: college current occupation: [employer] current occupational exposures/hazards: No Hx Recent Travel: No sexually active: Yes caffeine: Yes physical activity: none working smoke detector in home: Yes fire extinguisher in home: No carbon monox detector in home: Yes firearms in home: Yes firearms unloaded and locked: Yes do you feel safe at home: Yes victim of physical abuse: No victim of emotional abuse: No victim of sexual abuse: No would you like helpful sources: No Have you lived/traveled outside [place] in past 30 days?: No Contact w/someone who lives/traveled outside US past 30 days?: No Exposure to someone with infectious disease in past 14 days?: No Do you have a fever (greater than 100.4 F or 38 C)?: No Have you tested positive for COVID-19?: No Exposed to someone with COVID-19 in past 14 days?: No Do you have a sore throat?: No Do you have a cough?: No Do you have any weakness?: No Are you experiencing any nausea/vomitting?: No Do you have any diarrhea?: No Are you experiencing any unusual bleeding?: No Do you have any muscle aches/pain?: No Do you have any abdominal pain?: No Are you experiencing loss of taste or smell?: No [facility] Anesthesia Checklist Patient Identification Patient Identification: Arm Band and Verbal (Name & ) Structural Data Admitted From: Home Planned Operative Procedure/s: colonscopy Consent for Planned Operative Procedure(s) Verified: Yes Verified Documents: Surgical Consent and History and Physical NPO Status Verified Time NPO: 00:00 Additional verifications Anesthesia Reactions: No Hx Blood Transfusions: No Blood Transfusion Reaction: No Airway Assessment Dentition: Good Dentition Neurological Assessment Level of Consciousness: Awake, Alert and Appropriate Hx Seizures: No Anesthesia Plan Anesthesia Risk discussed: Yes Anesthesia Plan: Verified ASA Class: II Anesthesia Type: MAC
[2025-05-30 11:36] VITALS: BP 92/59; PULSE 63; RESP 17; TEMP 36.3; O2SAT 96
[2025-05-30 11:46] VITALS: BP 115/70; PULSE 69; RESP 16; O2SAT 97
[2025-05-30 11:56] VITALS: BP 125/76; PULSE 66; RESP 16; O2SAT 95
[2025-05-30 12:06] VITALS: BP 120/74; PULSE 63; RESP 17; O2SAT 96
[2025-05-30 12:13] LABS: POC Glucose,Bedside 188 gm/dL (70-110)
== END 2025-05-30 12:28 | disposition home or self-care (01) ==
PROVIDERS: PCP Family Medicine; Visit Provider Internal Medicine Gastroenterology
PROC: 0DJD8ZZ Inspection of Lower Intestinal Tract, Via Natural or Artificial Opening Endoscopic (ICD-10-PCS; CPT 45378; principal; 2025-05-30 11:00)
DX: Z12.11 Encounter for screening for malignant neoplasm of colon (principal); K57.30 Diverticulosis of large intestine without perforation or abscess without bleeding; K64.1 Second degree hemorrhoids; E11.40 Type 2 diabetes mellitus with diabetic neuropathy, unspecified; M79.7 Fibromyalgia; Z86.16 Personal history of COVID-19; K21.9 Gastro-esophageal reflux disease without esophagitis; E78.5 Hyperlipidemia, unspecified; E66.9 Obesity, unspecified; Z68.34 Body mass index [BMI] 34.0-34.9, adult; G47.30 Sleep apnea, unspecified; Z87.891 Personal history of nicotine dependence; Z88.8 Allergy status to other drugs, medicaments and biological substances; Z79.84 Long term (current) use of oral hypoglycemic drugs; Z79.4 Long term (current) use of insulin; Z79.899 Other long term (current) drug therapy
CPT/HCPCS: 45385; 46930; 82962; J2003; J2704; J7120

== ENCOUNTER 2025-06-12 16:20 | Outpatient (CLI) | payer BC, SELFPAY ==
--- OUTSIDE RECORDS SUMMARY | 2025-06-01 12:40 | XMS_ITS | Encounter Summary ---
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 Nkechi Celeste APRN [address] [address] Phone: tel: fax: Referral ID Status Reason Start Date Expiration Date Visits Re quested Visits Authorized [id number] Closed 1 1 * Medications - Closed Specialty Diagnoses / Procedures Referred By Tay chatterjee Referred To Contact Diagnoses Type 2 diabetes mellitus with other specified complication, unspecified whether alf insulin use Nkechi Celeste APRN [address] [address] Phone: tel: fax: Referral ID Status Reason Start Date Expiration Date Visits Re quested Visits Authorized [id number] Closed 1 1 * Medications - Closed Specialty Diagnoses / Procedures Referred By Tay chatterjee Referred To Contact Diagnoses Type 2 diabetes mellitus with other specified complication, 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 Nkechi Celeste APRN [address] [address] Phone: tel: fax: Referral ID Status Reason Start Date Expiration Date Visits Re quested Visits Authorized [id number] Closed 1 1 * Consultation (Routine) - Authorized Specialty Diagnoses / Procedures Referred By Tay chatterjee Referred To Contact Diagnoses Type 2 diabetes mellitus with other specified complication, 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 Nkechi Celeste APRN [address] [address] Phone: tel: fax: Referral ID Status Reason Start Date Expiration Date V isits Requested Visits Authorized [id number] Authorized 06/01/2025 12/01/2026 1 1 Reason for Visit * Reason Comments Diabetes * Consultation (Routine) - Closed Specialty Diagnoses / Procedures Referred By Tay chatterjee Referred To Contact Diagnoses Type 2 diabetes mellitus with other specified complication, 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 Nkechi Celeste APRN [address] [address] Phone: tel: fax: Referral ID Status Reason Start Date Expiration Date Visits Re quested Visits Authorized [id number] Closed 03/02/2025 09/01/2026 1 1 Encounter Details Date Type Department Care Team (Late st Contact Info) Description 06/01/2025 12:40 PM EDT Office Visit [facility] [address] [place] [address] Nkechi Celeste APRN [address] [address] Type 2 diabetes mellitus with other specified complication, 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 ([facility]) (Primary Dx); Neuropathy; Hyperlipidemia, unspecified [...] per day Current exercise: walking works at [employer] CGM data review: Dexcom Dates: 05/15/2025-05/28/2025 Data: [...] (H) No results found for: CPEPTIDE , GCX02QR , ZNT8A , NTIB The following portions [...] mellitus with other specified complication, unspecified whether alf insulin use ([facility]) - POCT glycosylated hemoglobin (Hb A1C) - Follow Up [facility]; Future - tirzepatide (Mounjaro) 7.5 MG/0.5ML solution auto-injector solution pen- injector; Inject 0.5 mL under the skin 1 time per week. - glipiZIDE (Glucotrol) 10 MG tablet; Take 1 tablet by mouth daily before breakfast. - Continuous Glucose Transmitter (Dexcom G6 transmitter) [facility]; Use as instructed with Dexcom G6 sensor, change every 90 days - Continuous Glucose Sensor (Dexcom G6 Sensor) misc; 1 sensor every 10 days. - insulin glargine (Lantus SoloStar) 100 UNIT/ML injection pen; INJECT 40 UNITS SUBCUTANEOUSLY AT BEDTIME. TITRATE DIRECTED. MAX DAILY DOSE OF 75 UNITS Neuropathy Hyperlipidemia, unspecified hyperlipidemia type Obesity (BMI 30-39.9) Other orders - Follow Up [facility] Diabetes Mellitis Type 2, is controlled. Patient [...] care. Electronically signed by: Nkechi Celeste APRN [facility] END[facility] [address] [facility]. [address] [place]. [address] PHONE [phone] FAX: [phone] documented in this encounter Plan of Treatment Upcoming Encounters Date Type Department Care Team (Late st Contact Info) Description 09/14/2025 2:20 PM EST Office Visit [facility] Medicine Specialties [address] [place] [address] Vane Lim APRN [address] [place] [address] 09/21/2025 12:20 PM EST Office Visit [facility] [address] [place] [address] Nkechi Celeste APRN [address] [facility] [address] [place] [address] Scheduled Referrals Name Type Priority Associated Diagnoses Orde r Schedule Follow Up 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 ([facility]) Expected: 08/31/2025, Expires: 12/03/2026 documented as of this encounter Procedures Procedure Name Priority Date/Time Associated Diagnosis Comments POCT GLYCOSYLATED HEMOGLOBIN (HGB A1C) Routine 06/01/2025 12:47 PM EDT Type 2 diabetes mellitus with other specified complication, unspecified whether alf insulin use ([facility]) documented in this encounter Results * POCT glycosylated hemoglobin (Hb A1C) (06/01/2025 12:47 PM EDT) POCT Hemoglobin A1C 6.8 <5.7% Non-Diabet ic % [facility] Kit Lot Number [id number] [facility] Kit Expiration Date 04/2027 [facility] Blood Venous blood specimen / Unknown 06/01/2025 12:47 PM EDT Nkechi Celeste SOLAR TECHNICIAN POINT OF CARE TEST ENTER /EDIT ORDERABLES Final Result [facility] [address] [place] [address] documented in this encounter Visit Diagnoses Diagnosis Type 2 diabetes mellitus with other specified complication, 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- Primary Neuropathy Mononeuritis of unspecified site Hyperlipidemia, unspecified hyperlipidemia type Obesity (BMI 30-39.9) documented in this encounter Additional Health Concerns Assessment Noted Time A fall risk assessment has been complete d for the patient 06/09/2024 10:35 AM EDT A Body Mass Index follow-up plan has been documented for the patient 06/01/2025 2:51 PM EDT documented as of this encounter Care Teams Director Of Community Center Relationship Specialty Start Date End Date Alissa Faria APRN [address] [place] [address] PCP - General 04/17/24 documented as of this encounter
--- OUTSIDE RECORDS SUMMARY | 2025-06-08 10:30 | XMS_ITS | Encounter Summary ---
Author Organization [facility] [place] Address [address] [place] [address] Care Team Providers Care Appraisal Coordinator Name Role Phone Alissa Faria WILTON Primary Care Provider [phone] Reason for Visit * Reason Comments Antiphospholipid antibody syndrome (CMS/ HCC Encounter Details Date Type Department Care Team (Latest Contact Info) Description 06/08/2025 10:30 AM EDT [facility] Visit [facility] [address], [address] [place] [address] Vane Lim APRN [address] [place] [address] Antiphospholipid antibody syndrome (CMS/HCC) (Primary [...] as of this encounter Miscellaneous Notes * Progress Notes - Vane Lim APRN - 06/08/2025 10:30 AM EDT [...] patient will be having a EGD in [place] by 12/23/23. The patient does not have [...] hx of TB. 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 She had a colonoscopy in 9/25 where hemorrhoids were ablated and polyps removed. [...] file Social Connections: Unknown (06/14/2023) Received from [facility] Family and Community Support Help with Day-to-Day Activities: Not on file Lonely or Isolated: Not on file Intimate Partner Violence: Unknown (06/14/2023) Received from [facility] Abuse Screen Unsafe at Home or Work/School: Not on file Feels Threatened by Someone?: Not on file Does Anyone Keep You from Contacting Others or Doint Things Outside the Home?: Not on file Physical Sign of Abuse Present: Not on file Housing Stability: Unknown (06/14/2023) Received from [facility] Housing Stability Current Living Arrangements: Not on [...] Patient global assessment: /010 Rapid 3 score: 8.12/03 CDAI: Pt reports % improvement while on current medication Assessment/Plan Diagnosis Plan 1. Antiphospholipid antibody syndrome (CMS/HCC) CBC and Differential Creatinine, Plasma Hepatic Function Panel aspirin (Yaritza Aspirin) 325 MG tablet Antinuclear Antibody (JOAN), HEp-2, IgG Double-Stranded DNA (dsDNA) Antibody, IgG by IFA C3 Complement C4 Complement ENAI ENAII Protein, Random, Urine with Creatinine Eng (RANDA) Antibody, IgG Thyroid Peroxidase Antibody Creatinine, Random, Urine Urinalysis with reflex microscopic (Culture NOT Included) 2. Positive JOAN (antinuclear antibody) CBC and Differential Creatinine, Plasma Hepatic Function Panel aspirin (Yaritza Aspirin) 325 MG tablet Antinuclear Antibody (JOAN), HEp-2, IgG Double-Stranded DNA (dsDNA) Antibody, IgG by IFA C3 Complement C4 Complement ENAI ENAII Protein, Random, Urine with Creatinine Eng (RANDA) Antibody, IgG Thyroid Peroxidase Antibody Creatinine, Random, Urine Urinalysis with reflex microscopic (Culture NOT Included) 3. Psoriasis, unspecified CBC and Differential Creatinine, Plasma Hepatic Function Panel aspirin (Yaritza Aspirin) 325 MG tablet Antinuclear Antibody (JOAN), HEp-2, IgG Double-Stranded DNA (dsDNA) Antibody, IgG by IFA C3 Complement C4 Complement ENAI ENAII Protein, Random, Urine with Creatinine Eng (RANDA) Antibody, IgG Thyroid Peroxidase Antibody Creatinine, Random, Urine Urinalysis with reflex microscopic (Culture NOT Included) 4. High risk medication use CBC and Differential Creatinine, Plasma Hepatic Function Panel aspirin (Yaritza Aspirin) 325 MG tablet Antinuclear Antibody (JOAN), HEp-2, IgG Double-Stranded DNA (dsDNA) Antibody, IgG by IFA C3 Complement C4 Complement ENAI ENAII Protein, Random, Urine with Creatinine Eng (RANDA) Antibody, IgG Thyroid Peroxidase Antibody Creatinine, Random, Urine Urinalysis with reflex microscopic (Culture NOT Included) 5. Type 2 diabetes mellitus with other specified complication, without long-term current use of insulin CBC and Differential Creatinine, Plasma Hepatic Function Panel aspirin (PresenterNet Aspirin) 325 MG tablet Antinuclear Antibody (JOAN), HEp-2, IgG Double-Stranded DNA (dsDNA) Antibody, IgG by IFA C3 Complement C4 Complement ENAI ENAII Protein, Random, Urine with Creatinine Eng (RANDA) Antibody, IgG Thyroid Peroxidase Antibody Creatinine, Random, Urine Urinalysis with reflex microscopic (Culture NOT Included) 6. Stage 2 chronic kidney disease CBC and Differential Creatinine, Plasma Hepatic Function Panel aspirin (PresenterNet Aspirin) 325 MG tablet Antinuclear Antibody (JOAN), HEp-2, IgG Double-Stranded DNA (dsDNA) Antibody, IgG by IFA C3 Complement C4 Complement ENAI ENAII Protein, Random, Urine with Creatinine Eng (RANDA) Antibody, IgG Thyroid Peroxidase Antibody Creatinine, Random, Urine Urinalysis with reflex microscopic (Culture NOT Included) 1.APLS -lupus anticoagulant PTT 44.2 -No hx of miscarriage or blood clots -Triple seropositive Lupus anticoagulant detected on both LA-sensitive aPTT and dRVVT assays -Rx ASA 325 mg-Will prevent CVA/MS -Educated that on a long plane/car ride at high risk of stroke/MS (get up and moved every couple ofhours)-will [...] n/v. 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 Motley at [facility] -Cre 1.10, GFR 52 8.Chronic cervical/lumbar spine pain -Patient with a [...] PsO. -Currently on Skyrizi every 12 weeks RTC 3 months Today, I personally spent [...] Date BLADDER SURGERY N/A Bladder Surgery from [facility] GALLBLADDER SURGERY N/A Anastomosis Of Gallbladder from [facility] HYSTERECTOMY N/A Hysterectomy from [facility] OTHER SURGICAL HISTORY N/A Exploratory Laparoscopy from [facility] WISDOM TOOTH EXTRACTION N/A Oral Surgery Tooth Extraction [place] [facility] from [facility] [3] Family History Problem Relation Name Age of Onset Stroke Other Diabetes Other Hypertension Other Other cancer Other Multiple sclerosis Maternal Cousin Rheum arthritis Father Conrad De Paz Diabetes Father Conrad De Paz Autoimmune disease Father Conrad De Paz rhuematoid [...] hr tablet cholecalciferol (Vitamin D-3) 1.25 MG (88621 UT) capsule TAKE 1 CAPSULE Weekly clobetasol [...] daily. 90 tablet 3 ergocalciferol 1.25 MG (26608 UT) capsule furosemide (Lasix) 80 MG tablet [...] Description 09/14/2025 2:20 PM EST Office Visit [facility] [address], [address] [place] [address] Vane Lim APRN [address] [place] [address] 09/21/2025 12:20 PM EST Office Visit [facility] [address] [place] [address] Nkechi Celeste, HEEL COMPRESSOR [address] [place] [address] Pending Results Name Type Priority Associated Diagnoses Date /Time Double-Stranded DNA (dsDNA) Antibody, IgG by IFA Lab Routine Antiphospholipid antibody syndrome (CMS/HCC) Positive JOAN (antinuclear antibody) Psoriasis, unspecified High risk medication use Type 2 diabetes mellitus with other specified complication, without long-term current use of insulin Stage 2 chronic kidney disease 06/08/2025 11:57 AM EDT ENAI Lab Routine Antiphospholipid antibody syndrome (CMS/HCC) Positive JOAN (antinuclear antibody) Psoriasis, unspecified High risk medication use Type 2 diabetes mellitus with other specified complication, without long-term current use of insulin Stage 2 chronic kidney disease 06/08/2025 11:57 AM EDT Scheduled Orders Name Type Priority Associated Diagnoses Orde r Schedule Double-Stranded DNA (dsDNA) Antibody, IgG by IFA Lab Routine Antiphospholipid antibody syndrome (CMS/HCC) Positive JOAN (antinuclear antibody) Psoriasis, unspecified High risk medication use Type 2 diabetes mellitus with other specified complication, without long-term current use of insulin Stage 2 chronic kidney disease Expected: 06/08/2025 (Approximate), Expires: 12/07/2026 ENAI Lab Routine Antiphospholipid antibody syndrome (CMS/HCC) Positive JOAN (antinuclear antibody) Psoriasis, unspecified High risk medication use Type 2 diabetes mellitus with other specified complication, without long-term current use of insulin Stage 2 chronic kidney disease Expected: 06/08/2025 (Approximate), Expires: 12/07/2026 documented as of this encounter Results * (ABNORMAL) Urinalysis with reflex microscopic (Culture NOT Included) (06/08/2025 11:57 AM EDT) [facility] Signature Color, Urine Yellow LAB URINALYSIS - AUTOMATED METHOD 06/08/2025 1:43 PM EDT [facility] Clarity, Urine Clear LAB URINALYSIS - AUTOMATED METHOD 06/08/2025 1:43 PM EDT [facility] Spec Mozier, Urine 1.030 1.005 - 1.030 LAB URINALYSIS - AUTOMATED METHOD 06/08/2025 1:43 PM EDT [facility] pH, Urine 5.5 5.0 - 8.0 LAB URINALYSIS - AUTOMATED METHOD 06/08/2025 1:43 PM EDT [facility] Protein, Urine Negative Negative mg/dL LAB URINALYSIS - AUTOMATED METHOD 06/08/2025 1:43 PM EDT [facility] Glucose, Urine 500(A) Negative mg/dL LAB URINALYSIS - AUTOMATED METHOD 06/08/2025 1:43 PM EDT [facility] Ketones, Urine Trace(A) Negative mg/dL LAB URINALYSIS - AUTOMATED METHOD 06/08/2025 1:43 PM EDT [facility] Blood, Urine Negative Negative LAB URINALYSIS - AUTOMATED METHOD 06/08/2025 1:43 PM EDT [facility] Bilirubin, Urine Negative Negative LAB URINALYSIS - AUTOMATED METHOD 06/08/2025 1:43 PM EDT [facility] Urobilinogen, Urine 0.2 0.2 to 1.0 mg/dL LAB URINALYSIS - AUTOMATED METHOD 06/08/2025 1:43 PM EDT [facility] Leukocytes, Urine Small(A) Negative LAB URINALYSIS - AUTOMATED METHOD 06/08/2025 1:43 PM EDT [facility] Nitrite, Urine Negative Negative LAB URINALYSIS - AUTOMATED METHOD 06/08/2025 1:43 PM EDT [facility] RBC, Urine 1 0 to 3 /HPF LAB URINALYSIS - AUTOMATED METHOD 06/08/2025 1:43 PM EDT [facility] WBC, Urine 0 - 5 0 to 5 /HPF LAB URINALYSIS - AUTOMATED METHOD 06/08/2025 1:43 PM EDT [facility] Squamous Epithelial Cells 3 - 5 0 to 5 /HPF LAB URINALYSIS - AUTOMATED METHOD 06/08/2025 1:43 PM EDT [facility] Hyaline Casts 0 - 2 0 to 5 /LPF LAB URINALYSIS - AUTOMATED METHOD 06/08/2025 1:43 PM EDT [facility] Bacteria, Urine Present Negative LAB URINALYSIS - AUTOMATED METHOD 06/08/2025 1:43 PM EDT [facility] Urine Urine specimen obtained by clean catch procedure / Unknown Non-blood Collection / Unknown 06/08/2025 11:57 AM EDT 06/08/2025 11:57 AM EDT Vane Lim APRN LAB URINE ORDERABLES Final Result Performing Organization Address City/[facility]/ZIP Co de Phone Number [facility] [address] [place] [address] * Thyroid Peroxidase Antibody (06/08/2025 11:57 AM EDT) Thyroid Peroxidase Antibody <5 <=8 IU/mL 06/08/2025 4:18 PM EDT [facility] Blood Venous blood specimen / Unknown Venipuncture / Unknown 06/08/2025 11:57 AM EDT 06/08/2025 11:57 AM EDT Vane Lim APRN LAB BLOOD ORDERABLES Final Result Performing Organization Address City/[facility] [place] [address] * Eng (RANDA) Antibody, IgG (06/08/2025 11:57 AM EDT) Eng (RANDA) Antibody, IgG 4 0 - 40 AU/mL 06/10/2025 3:57 PM EDT [facility] ([facility]) Serum 06/08/2025 11:5 7 AM EDT 06/08/2025 11:57 AM EDT Narrative [facility] ([facility]) - 06/10/2025 3:57 PM EDT INTERPRETIVE INFORMATION: Eng (RANDA) Antibody, IgG 29 AU/mL or Less ............. Negative 30 - 40 AU/mL ................ Equivocal 41 AU/mL or Greater .......... Positive Eng antibody is highly specific (greater than 90 percent) for systemic lupus erythematosus (SLE) but only occurs in 30-35 percent of SLE cases. The presence of antibodies to Eng has variable associations with SLE clinical manifestations. Performed By: [facility] [address] [place] [address] Coding Advisor: Chaz Marcelo MD, PhD CLIA Number: [id number] Vane Lim APRN LAB REF LAB BLOOD AND FLUI D ORD Final Result Performing Organization Address City/[facility]/ZIP Co de Phone Number [facility] ([facility]) [address] [place] [address] * Protein, Random, Urine with Creatinine (06/08/2025 11:57 AM EDT) Protein, Urine 14 mg/dL 06/08/2025 1:51 PM EDT [facility] Creatinine, Urine 138 mg/dL 06/08/2025 1:51 PM EDT [facility] Protein/Creatin ine Ratio 0.1 mg/mg Creat 06/08/2025 1:51 PM EDT [facility] Urine Urine specimen obtained by clean catch procedure / Unknown Non-blood Collection / Unknown 06/08/2025 11:57 AM EDT 06/08/2025 11:57 AM EDT Vane Lim HEEL COMPRESSOR LAB URINE ORDERABLES Final Result Performing Organization Address [facility]/ZIP Co de Phone Number [facility] [address] [place] [address] * ENAII (06/08/2025 11:57 AM EDT) SSA-52 (RO52) (RANDA) Antibody, IgG 2 0 - 40 AU/mL 06/12/2025 10:00 AM EDT [facility] ([facility]) SSA-60 (RO60) (RANDA) Antibody, IgG 1 0 - 40 AU/mL 06/12/2025 10:00 AM EDT [facility] ([facility]) SSB (LA) (RANDA) Antibody, IgG 1 0 - 40 AU/mL 06/12/2025 10:00 AM EDT [facility] HERNAN GARCIA) Blood Venous blood specimen / Unknown Venipuncture / Unknown 06/08/2025 11:57 AM EDT 06/08/2025 11:57 AM EDT Narrative [facility] HERNAN GARCIA) - 06/12/2025 10:00 AM EDT INTERPRETIVE INFORMATION: [...] (PSS) also have this antibody. Performed By: [facility] [address] [place] [id number] Coding Advisor: Chaz Marcelo MD, PhD CLIA Number: [id number] us Vane Lim HEEL COMPRESSOR LAB BLOOD ORDERABLES Final Result [facility] ([facility]) [address] [place] [address] * C4 Complement (06/08/2025 11:57 AM EDT) C4 Complement 15 13 - 36 mg/dL 06/08/2025 3:33 PM EDT [facility] Blood Venous blood specimen / Unknown Venipuncture / Unknown 06/08/2025 11:57 AM EDT 06/08/2025 11:57 AM EDT Vane Kiera Raphael HEEL COMPRESSOR LAB BLOOD ORDERABLES Final Result [facility] [address] [place] [address] * C3 Complement (06/08/2025 11:57 AM EDT) C3 Complement 126 84 - 166 mg/dL 06/08/2025 3:33 PM EDT [facility] Blood Venous blood specimen / Unknown Venipuncture / Unknown 06/08/2025 11:57 AM EDT 06/08/2025 11:57 AM EDT Vane Kiera Raphael HEEL COMPRESSOR LAB BLOOD ORDERABLES Final Result Performing Organization Address City/[facility]/ZIP Co de Phone Number [facility] [address] [place] [address] * Antinuclear Antibody (JOAN), HEp-2, IgG (06/08/2025 11:57 AM EDT) JOAN INTERPRETIVE COMMENT See Note 06/12/2025 2:44 PM EDT [facility] ([facility]) Anti Nuc Ab Screen <1:80 <1:80 06/12/2025 2:44 PM EDT [facility] ([facility]) Blood Venous blood specimen / Unknown Venipuncture / Unknown 06/08/2025 11:57 AM EDT 06/08/2025 11:57 AM EDT Narrative [facility] ([facility]) - 06/12/2025 2:44 PM EDT Clinical Interpretation: [...] not necessarily rule out SARD. Performed By: [facility] [address] [place] [address] Coding Advisor: Chaz Marcelo MD, PhD CLIA Number: [id number] us Vane Lim HEEL COMPRESSOR LAB BLOOD ORDERABLES Final Result [facility] ([facility]) [address] [place], [place] [id number] * (ABNORMAL) Hepatic Function Panel (06/08/2025 11:57 AM EDT) Direct Bilirubin, Plasma <0.2 <=0.3 mg/dL 06/08/2025 2:08 PM EDT [facility] Alkaline Phosphatase, Plasma 105(H) 35 - 104 U/L 06/08/2025 2:08 PM EDT [facility] Total Bilirubin, Plasma 0.4 0.2 - 1.1 mg/dL 06/08/2025 2:08 PM EDT [facility] Albumin, Plasma 4.2 3.5 - 5.2 g/dL 06/08/2025 2:08 PM EDT [facility] Total Protein 7.4 6.3 - 7.9 g/dL 06/08/2025 2:08 PM EDT [facility] ALT, Plasma 39(H) 10 - 35 U/L 06/08/2025 2:08 PM EDT [facility] AST, Plasma 38(H) 10 - 35 U/L 06/08/2025 2:08 PM EDT [facility] Blood Venous blood specimen / Unknown Venipuncture / Unknown 06/08/2025 11:57 AM EDT 06/08/2025 11:57 AM EDT Vane Lim APRN LAB BLOOD ORDERABLES Final Result Performing Organization Address City/[facility] Co de Phone Number [facility] [address] [place] [address] * Creatinine, Plasma (06/08/2025 11:57 AM EDT) Creatinine, Plasma 0.76 0.60 - 1.10 mg/dL 06/08/2025 2:08 PM EDT [facility] eGFRcr 94.4 mL/min/1.7 3m*2 06/08/2025 2:08 PM EDT [facility] Comment:Reported eGFRcr in m L/min/1.73m2 is based the CKD-EPI 2020 equation that does not use a race coefficient. Blood Venous blood specimen / Unknown Venipuncture / Unknown 06/08/2025 11:57 AM EDT 06/08/2025 11:57 AM EDT Vane Lim APRN LAB BLOOD ORDERABLES Final Result Performing Organization Address [facility]/ZIP Co de Phone Number [facility] [address] [place] [address] * (ABNORMAL) CBC and Differential (06/08/2025 11:57 AM EDT) WBC Count 5.97 3.70 - 10.30 10*3/uL LAB HEMATOLOGY METHOD 06/08/2025 1:57 PM EDT [facility] RBC Count 5.21(H) 3.90 - 5.20 10*6/uL LAB HEMATOLOGY METHOD 06/08/2025 1:57 PM EDT [facility] HGB 13.7 11.2 - 15.7 g/dL LAB HEMATOLOGY METHOD 06/08/2025 1:57 PM EDT [facility] HCT 42.9 34.0 - 45.0 % LAB HEMATOLOGY METHOD 06/08/2025 1:57 PM EDT [facility] Platelet Count 174 155 - 369 10*3/uL LAB HEMATOLOGY METHOD 06/08/2025 1:57 PM EDT [facility] MCV 82 79 - 98 fL LAB HEMATOLOGY METHOD 06/08/2025 1:57 PM EDT [facility] MCH 26.3 26.0 - 32.0 pg LAB HEMATOLOGY METHOD 06/08/2025 1:57 PM EDT [facility] MCHC 31.9 30.7 - 35.5 g/dL LAB HEMATOLOGY METHOD 06/08/2025 1:57 PM EDT [facility] RDW 15.4(H) 11.5 - 14.5 % LAB HEMATOLOGY METHOD 06/08/2025 1:57 PM EDT [facility] MPV 10.6 8.8 - 12.5 fL LAB HEMATOLOGY METHOD 06/08/2025 1:57 PM EDT [facility] nRBC 0.0 <=0.0 per 100 WBCs LAB HEMATOLOGY METHOD 06/08/2025 1:57 PM EDT [facility] Differential Type Automated LAB HEMATOLOGY METHOD 06/08/2025 1:57 PM EDT [facility] Neutrophils % 57 % LAB HEMATOLOGY METHOD 06/08/2025 1:57 PM EDT [facility] Lymphocytes % 31 % LAB HEMATOLOGY METHOD 06/08/2025 1:57 PM EDT [facility] Monocytes % 6 % LAB HEMATOLOGY METHOD 06/08/2025 1:57 PM EDT [facility] Eosinophils % 3 % LAB HEMATOLOGY METHOD 06/08/2025 1:57 PM EDT [facility] Basophils % 2 % LAB HEMATOLOGY METHOD 06/08/2025 1:57 PM EDT [facility] Immature Granulocytes % 1 % LAB HEMATOLOGY METHOD 06/08/2025 1:57 PM EDT [facility] Neutrophils Absolute 3.46 1.60 - 6.10 10*3/uL LAB HEMATOLOGY METHOD 06/08/2025 1:57 PM EDT [facility] Lymphocytes Absolute 1.84 1.20 - 3.90 10*3/uL LAB HEMATOLOGY METHOD 06/08/2025 1:57 PM EDT [facility] Monocytes Absolute 0.35 0.30 - 0.90 10*3/uL LAB HEMATOLOGY METHOD 06/08/2025 1:57 PM EDT [facility] Eosinophils Absolute 0.19 0.00 - 0.50 10*3/uL LAB HEMATOLOGY METHOD 06/08/2025 1:57 PM EDT [facility] Basophils Absolute 0.09 0.00 - 0.10 10*3/uL LAB HEMATOLOGY METHOD 06/08/2025 1:57 PM EDT [facility] Immature Granulocytes Absolute 0.04 0.00 - 0.06 10*3/uL LAB HEMATOLOGY METHOD 06/08/2025 1:57 PM EDT [facility] Blood Venous blood specimen / Unknown Venipuncture / Unknown 06/08/2025 11:57 AM EDT 06/08/2025 11:57 AM EDT Narrative [facility] - 06/08/2025 1:57 PM EDT Therapeutic decision making should be based on absolute values, rather than percentages. Vane Lim APRN LAB BLOOD ORDERABLES Final Result [facility] [address] [place] [address] documented in this encounter Visit Diagnoses Diagnosis [...] documented as of this encounter Care Teams Appraisal Coordinator Relationship Specialty Start Date End Date Alissa Faria APRN [address] [place] [address] PCP - General 04/17/24 documented as of this encounter
--- OUTSIDE RECORDS SUMMARY | 2025-06-12 22:35 | XMS_ITS | Encounter Summary ---
Author Organization [facility] Address [address] [place] [address] Care Team Providers Care Banana Room Cutter Name Role Phone Alissa Faria APRN Primary Care Provider [phone] Encounter Details Date Type Department Care Team (Latest Contact Info) Description 06/08/2025 Travel Social History Tobacco Use Types Packs/Day Years [...] on file documented as of this encounter Functional Status * Over the past 2 weeks, how often have you been bothered by any of the following problems? Question Answer Date of Assessment Author Little interest or pleasure in doing things Not at all 06/08/2025 10:48 AM EBONYT Lang Schultz Feeling down, depressed, or hopeless [...] at all 06/08/2025 10:48 AM Lang Monge documented as of this encounter Plan of Treatment Upcoming Encounters Date Type Department Care Team (Late st Contact Info) Description 09/14/2025 2:20 PM EST [facility] [address] [place] [address] Vane Lim, OIL WELL CABLE TOOL DRILLER [address] [place] [address] 09/21/2025 12:20 PM EST Office Visit [facility] Endocrinology [address] [place] [phone] Nkechi Celeste, OIL WELL CABLE TOOL DRILLER [address] [facility] [address] [place] [address] documented as of this encounter Visit Diagnoses [...] documented as of this encounter Care Teams Banana Room Cutter Relationship Specialty Start Date End Date Alissa Faria APRN [address] [place] [address] PCP - General 04/17/24 documented as of this encounter
--- OUTSIDE RECORDS SUMMARY | 2025-06-12 22:35 | XMS_ITS | Encounter Summary ---
Author Organization Healthcare Address [address] [place] [address] Care Team Providers Care Fiberglasser Name Role Phone Alissa Faria WILTON Primary Care Provider [phone] Encounter Details Date Type Department Care Team (Latest Contact Info) Description 06/01/2025 Travel Social History Tobacco Use Types Packs/Day [...] Description 09/14/2025 2:20 PM EST Office Visit [facility] [address] [place] [address] Vane Lim APRN [address] [place] [address] 09/21/2025 12:20 PM EST [facility] [address] [place] [phone] Nkechi Celeste, HVAC LEAD [address] [facility] [address] [place] [address] documented as of this encounter Visit Diagnoses Not on filedocumented in this encounter Additional Health Concerns Assessment Noted Time A fall risk assessment has been complete d for the patient 06/09/2024 10:35 AM EDT A Body Mass Index follow-up plan has been documented for the patient 06/01/2025 2:51 PM EDT documented as of this encounter Care Teams Fiberglasser Relationship Specialty Start Date End Date Alissa Faria APRN [address] [place] [address] PCP - General 04/17/24 documented as of this encounter
--- OUTSIDE RECORDS SUMMARY | 2025-06-12 22:35 | XMS_ITS | Clinical Summary ---
Author Organization [facility] Address [address] [place] [address] Care Team Providers Care Supervisor Poultry Processing Name Role Phone Alissa Faria APRN Primary Care Provider [phone] Allergies Active Allergy Reactions Criticality Noted Date Comments Metformin Nausea,Diarrhea High 09/30/2023 Medications pramipexole (Mirapex) 0.125 MG tablet 08/16/20 20 Active albuterol 108 (90 Base) MCG/ACT inhaler 08/19/20 20 Active cholecalciferol (Vitamin D-3) 1.25 MG (46741 UT) capsule TAKE 1 CAPSULE Weekly 08/16/20 [...] MG tablet 07/13/20 Active ergocalciferol 1.25 MG (34081 UT) capsule 06/22/20 Active clobetasol (Temovate) 0.05 % ointment Apply topically. 11/30/19 24 Active FLUoxetine (PROzac) 20 MG capsule [...] day. 50 g 1 06/09/20 24 Active desvenlafaxine (Pristiq) 50 MG 24 [...] mellitus with other specified complication, unspecified whether rat exterminator insulin use Test 2 times each day, Dx E11.9 1 kit 07/07/20 24 Active Glucose Blood (Blood Glucose Test) stripIndication s:Type 2 diabetes mellitus with other specified complication, unspecified whether rat exterminator insulin use Use as directed to test blood glucose level 2 times per day or to calibrate CGM DX E11.9 100 strip 3 07/07/20 24 Active Lancets miscIndications :Type 2 diabetes mellitus with other specified complication, unspecified whether rat exterminator insulin use Use to test blood glucose level 2 [...] 150 MG/ML solution auto-injector 01/05/20 25 Active empagliflozin (Jardiance) 25 MGIndications:T ype 2 diabetes mellitus with other specified complication, unspecified whether half-way insulin use Take 1 tablet by mouth daily. 90 tablet 3 03/02/20 25 026 Active tirzepatide (Mounjaro) 7.5 MG/0.5ML solution auto-injector solution pen-injectorInd ications:Type 2 Diabetes Mellitus Inject 0.5 mL under the skin 1 time per week. 2 mL 5 06/01/20 25 026 Active glipiZIDE (Glucotrol) 10 MG tabletIndicatio ns:Type 2 diabetes mellitus with other specified complication, unspecified whether half-way insulin use Take 1 tablet by mouth daily before breakfast. 90 tablet 3 06/01/20 25 026 Active Continuous Glucose Transmitter (Dexcom G6 transmitter) miscIndications :Type 2 diabetes mellitus with other specified complication, unspecified whether rat exterminator insulin use Use as instructed with Dexcom G6 sensor, change every 90 days 1 each 06/01/20 25 Active Continuous Glucose Sensor (Dexcom G6 Sensor) miscIndications :Type 2 diabetes mellitus with other specified complication, unspecified whether rat exterminator insulin use 1 sensor every 10 days. 9 each 3 06/01/20 25 026 Active insulin glargine (Lantus SoloStar) 100 UNIT/ML injection penIndications: Type 2 diabetes mellitus with other specified complication, unspecified whether half-way insulin use INJECT 40 UNITS SUBCUTANEOUSLY AT BEDTIME. TITRATE DIRECTED. MAX DAILY DOSE OF 75 UNITS 30 mL 3 06/01/20 25 Active aspirin (Yaritza Aspirin) 325 MG tabletIndicatio ns:Antiphosphol ipid antibody syndrome (CMS/HCC),Posit riley JOAN (antinuclear antibody),Psori asis, unspecified,Hig h risk medication use,Type 2 diabetes mellitus with other specified complication, without long-term current use of insulin,Stage 2 chronic kidney disease Take 1 tablet by mouth daily. 90 tablet 3 06/08/20 25 Active Continuous Blood Gluc Watch Engine Operator (Dexcom G7 Watch Engine Operator) device 01/30/20 23 025 Discontin ued(Alter charlotte therapy) Continuous Blood Gluc Transmit (Dexcom G6 transmitter) misc 11/24/19 24 025 Discontin ued(Reord er) aspirin (Yaritza Aspirin) 325 MG tabletIndicatio ns:Antiphosphol ipid antibody syndrome (CMS/HCC) Take 1 tablet (325 mg) by mouth 1 (one) time each day. 90 tablet 3 06/16/20 24 025 Discontin ued(Reord er) tirzepatide (Mounjaro) 5 MG/0.5ML solution auto-injector solution pen-injectorInd ications:Type 2 Diabetes Mellitus Inject 0.5 mL under the skin 1 time per week. 2 mL 5 04/01/20 25 025 Discontin ued(Dose adjustmen t) insulin glargine (Lantus SoloStar) 100 UNIT/ML injection penIndications: Type 2 diabetes mellitus with other specified complication, unspecified whether half-way insulin use INJECT 40 UNITS SUBCUTANEOUSLY AT BEDTIME. TITRATE DIRECTED. MAX DAILY DOSE OF 75 UNITS 15 mL 3 03/02/20 25 025 Discontin ued(Reord er) glipiZIDE (Glucotrol) 10 MG tabletIndicatio ns:Type 2 diabetes mellitus with other specified complication, unspecified whether rat exterminator insulin use Take 1 tablet by mouth 2 times a day before meals. 180 tablet 3 03/02/20 25 025 Discontin ued(Dose adjustmen t) Continuous Glucose Sensor (Dexcom G7 Sensor) misc USE DIRECTED EVERY 10 DAYS 3 each 5 04/19/20 25 025 Discontin ued(Reord er) Active Problems Problem Noted Date Diagnosed Date [...] Encounters Date Type Department Care Team Description 06/08/2025 10:30 AM EDT Office Visit [facility] Medicine Specialties [address] [place] [address] Vane Lim, WILTON Antiphospholipid antibody syndrome (CMS/HCC) (Primary Dx); Positive JOAN (antinuclear antibody); Psoriasis, unspecified; High risk medication use; Type 2 diabetes mellitus with other specified complication, without long-term current use of insulin; Stage 2 chronic kidney disease 06/08/2025 Travel 06/01/2025 12:40 PM EDT Office Visit [facility] Endocrin[place] [id number] Nkechi Celeste APRN Type 2 diabetes mellitus with other specified complication, unspecified whether half-way insulin use (CMS/HCC) (Primary Dx); Neuropathy; Hyperlipidemia, unspecified hyperlipidemia type; Obesity (BMI 30-39.9) 06/01/2025 Travel 04/19/2025 Refill [facility] Endocrinology [address] [place] [address] Nkechi Celeste, WILTON from Last 3 Months Immunizations Immunization Administration [...] Multiple sclerosis Maternal Cousin Asthma Maternal Grandmother jessica mclaughlin rden Autoimmune disease Maternal Grandmother jessica stark asthma Kidney disease Mother jessica de paz kidney disea se Stroke Other 1 Diabetes Other 2 Hypertension Other 3 Other cancer Other 4 Autoimmune disease Paternal Grandmother Pamela de paz cancer Relation Name Status Comments Father Conrad De Paz Father's Brother Warren De Paz Maternal Cousin Maternal Grandmother jessica stark Mother jessica de paz Other 1 Other 2 Other [...] Mass Index 36.21 06/08/2025 10:43 AM EDT Plan of Treatment Upcoming Encounters Date Type Department Care Team (Late st Contact Info) Description 09/14/2025 2:20 PM EST Office Visit [facility] Medicine [facility] [address] [place] [address] Vane Lim, JOURNEYMAN WELDER [address] [place] [address] 09/21/2025 12:20 PM EST Office Visit [facility] Endocrinology [address] [place] [address] Nkechi Celeste, JOURNEYMAN WELDER [address] [place] [address] Health Maintenance Due Date Last Done Comments [...] PPSV23, PCV20, or PCV21) 09/02/2017 07/19/2017, 07/08/2017 [id number]-95 Vaccine (3 - Moderna risk series) 01/29/2021 01/01/2021, 12/04/2020 [facility]-Breast Cancer Screening 2022 03/23/2013 [facility]-Lung Cancer Screening 2022 [facility]-Zoster Vaccines (1 of 2) 2022 [facility]-Influenza Vaccine (#1) 2025 07/19/2017 [facility]-Diabetes: Hemoglobin A1C 11/29/2025, 03/02/2025, 10/13/2024, Additional history exists [facility]-Depression Screening 06/08/2026 06/08/2025, 11/2024 [facility]-Hepatitis C Screening Completed 12/21/2023 [facility]-Obesity Intervention Completed 025, 06/01/2025, 06/01/2025, Additional history exists HPV Vaccines Aged Out [...] Procedure Name Priority Date/Time Associated Diagnosis Comments URINALYSIS MICROSCOPIC FOR UA REFLEX Routine 06/08/2025 11:57 AM EDT Antiphospholipid antibody syndrome (CMS/HCC) Positive JOAN (antinuclear antibody) Psoriasis, unspecified High risk medication use Type 2 diabetes mellitus with other specified complication, without long-term current use of insulin Stage 2 chronic kidney disease URINALYSIS WITH REFLEX MICROSCOPIC Routine 06/08/2025 11:57 AM EDT Antiphospholipid antibody syndrome (CMS/HCC) Positive JOAN (antinuclear antibody) Psoriasis, unspecified High risk medication use Type 2 diabetes mellitus with other specified complication, without long-term current use of insulin Stage 2 chronic kidney disease PROTEIN, URINE, RANDOM WITH CREATININE Routine 06/08/2025 11:57 AM EDT Antiphospholipid antibody syndrome (CMS/HCC) Positive JOAN (antinuclear antibody) Psoriasis, unspecified High risk medication use Type 2 diabetes mellitus with other specified complication, without long-term current use of insulin Stage 2 chronic kidney disease CBC WITH AUTO DIFFERENTIAL Routine 06/08/2025 11:57 AM EDT Antiphospholipid antibody syndrome (CMS/HCC) Positive JOAN (antinuclear antibody) Psoriasis, unspecified High risk medication use Type 2 diabetes mellitus with other specified complication, without long-term current use of insulin Stage 2 chronic kidney disease CREATININE, PLASMA Routine 06/08/2025 11 :57 AM EDT Antiphospholipid antibody syndrome (CMS/HCC) Positive JOAN (antinuclear antibody) Psoriasis, unspecified High risk medication use Type 2 diabetes mellitus with other specified complication, without long-term current use of insulin Stage 2 chronic kidney disease HEPATIC FUNCTION PANEL Routine 06/08/2025 11:57 AM EDT Antiphospholipid antibody syndrome (CMS/HCC) Positive JOAN (antinuclear antibody) Psoriasis, unspecified High risk medication use Type 2 diabetes mellitus with other specified complication, without long-term current use of insulin Stage 2 chronic kidney disease ANTINUCLEAR ANTIBODY (JOAN) WITH HEP-2 SUBSTRATE, IGG BY IFA (SO) Routine 06/08/2025 11:57 AM EDT Antiphospholipid antibody syndrome (CMS/HCC) Positive JOAN (antinuclear antibody) Psoriasis, unspecified High risk medication use Type 2 diabetes mellitus with other specified complication, without long-term current use of insulin Stage 2 chronic kidney disease C3 COMPLEMENT Routine 06/08/2025 11:57 AM EDT Antiphospholipid antibody syndrome (CMS/HCC) Positive JOAN (antinuclear antibody) Psoriasis, unspecified High risk medication use Type 2 diabetes mellitus with other specified complication, without long-term current use of insulin Stage 2 chronic kidney disease C4 COMPLEMENT Routine 06/08/2025 11:57 AM EDT Antiphospholipid antibody syndrome (CMS/HCC) Positive JOAN (antinuclear antibody) Psoriasis, unspecified High risk medication use Type 2 diabetes mellitus with other specified complication, without long-term current use of insulin Stage 2 chronic kidney disease EXTRACTABLE NUCLEAR ANTIGEN ANTIBODIES (SSA 52, SSA 60, AND SSB) (SO) Routine 06/08/2025 11:57 AM EDT Antiphospholipid antibody syndrome (CMS/HCC) Positive JOAN (antinuclear antibody) Psoriasis, unspecified High risk medication use Type 2 diabetes mellitus with other specified complication, without long-term current use of insulin Stage 2 chronic kidney disease CHAMBERS (RANDA) ANTIBODY, IGG (SO) Routine 06/08/2025 11:57 AM EDT Antiphospholipid antibody syndrome (CMS/HCC) Positive JOAN (antinuclear antibody) Psoriasis, unspecified High risk medication use Type 2 diabetes mellitus with other specified complication, without long-term current use of insulin Stage 2 chronic kidney disease THYROID PEROXIDASE ANTIBODY Routine 06/08/2025 11:57 AM EDT Antiphospholipid antibody syndrome (CMS/HCC) Positive JOAN (antinuclear antibody) Psoriasis, unspecified High risk medication use Type 2 diabetes mellitus with other specified complication, without long-term current use of insulin Stage 2 chronic kidney disease POCT GLYCOSYLATED HEMOGLOBIN (HGB A1C) Routine 06/01/2025 12:47 PM EDT Type 2 diabetes mellitus with other specified complication, unspecified whether rat exterminator insulin use (CMS/HCC) ACUTE HEPATITIS PANEL Routine 12/21/2023 11:06 AM EDT Unspecified abnormal finding in specimens from other organs, systems and tissues Elevated erythrocyte sedimentation rate Polyarthralgia Sicca syndrome (CMS/HCC) from Last 3 Months or Most Recently Relevant to Health Maintenance Results * Urinalysis Microscopic Examination (06/08/2025 11:57 AM EDT) Urine Urine specimen obtained by clean catch procedure / Unknown Non-blood Collection / Unknown 06/08/2025 11:57 AM EDT 06/08/2025 11:57 AM EDT us Vane Lim JOURNEYMAN WELDER LAB URINE ORDERABLES Final Result [facility] [address] [place] [address] * Chambers (RANDA) Antibody, IgG (06/08/2025 11:57 AM EDT) Chambers (RANDA) Antibody, IgG 4 0 - 40 AU/mL 06/10/2025 3:57 PM EDT [facility] ([place]) Serum 06/08/2025 11:5 7 AM EDT 06/08/2025 11:57 AM EDT Narrative [facility]) - 06/10/2025 3:57 PM EDT INTERPRETIVE INFORMATION: [...] associations with SLE clinical manifestations. Performed By: [facility] [address] [place] [address] Oyster Grower: Chaz Marcelo MD, PhD CLIA Number: [id number] us Vane Lim JOURNEYMAN WELDER LAB REF LAB BLOOD AND FLUI D ORD Final Result [facility] [address] [place], [place] [id number] * ENAII (06/08/2025 11:57 AM EDT) SSA-52 (RO52) (RANDA) Antibody, IgG 2 0 - 40 AU/mL 06/12/2025 10:00 AM EDT [facility] ([place]) SSA-60 (RO60) (RANDA) Antibody, IgG 1 0 - 40 AU/mL 06/12/2025 10:00 AM EDT [facility] ([place]) SSB (LA) (RANDA) Antibody, IgG 1 0 - 40 AU/mL 06/12/2025 10:00 AM EDT [facility] ([place]) Blood Venous blood specimen / Unknown Venipuncture / Unknown 06/08/2025 11:57 AM EDT 06/08/2025 11:57 AM EDT Narrative [facility] GARCIA) - 06/12/2025 10:00 AM EDT [...] (PSS) also have this antibody. Performed By: [facility] [address] [place] [id number] Oyster Grower: Chaz Marcelo MD, PhD CLIA Number: [id number] us Vane Lim APRN LAB BLOOD ORDERABLES Final Result [facility]) [address] [place] [address] * Thyroid Peroxidase Antibody (06/08/2025 11:57 AM EDT) Thyroid Peroxidase Antibody <5 <=8 IU/mL 06/08/2025 4:[address] [facility] Blood Venous blood specimen / Unknown Venipuncture / Unknown 06/08/2025 11:57 AM EDT 06/08/2025 11:57 AM EDT Vane Lim APRN LAB BLOOD ORDERABLES Final Result [facility] [address] [place] [address] * Protein, Random, Urine with Creatinine (06/08/2025 11:57 AM EDT) Protein, Urine 14 mg/dL 06/08/2025 1:[address] [facility] Creatinine, Urine 138 mg/dL 06/08/2025 1:[address] [facility] Protein/Creatin ine Ratio 0.1 mg/mg Creat 06/08/2025 1:51 PM EDT [facility] Urine Urine specimen obtained by clean catch procedure / Unknown Non-blood Collection / Unknown 06/08/2025 11:57 AM EDT 06/08/2025 11:57 AM EDT Vane Lim APRN LAB URINE ORDERABLES Final Result Performing Organization Address [facility]/ZIP Co de Phone Number [facility] [address] [place] [address] * Creatinine, Plasma (06/08/2025 11:57 AM EDT) Creatinine, Plasma 0.76 0.60 - 1.10 mg/dL 06/08/2025 2:[address] [facility] eGFRcr 94.4 mL/min/1.7 3m*2 06/08/2025 2:[address] [facility] Comment:Reported eGFRcr in m L/min/1.73m2 is based the CKD-EPI 2020 equation that does not use a race coefficient. Blood Venous blood specimen / Unknown Venipuncture / Unknown 06/08/2025 11:57 AM EDT 06/08/2025 11:57 AM EDT Vane Lim JOURNEYMAN WELDER LAB BLOOD ORDERABLES Final Result [facility] [address] [place] [address] * (ABNORMAL) Urinalysis with reflex microscopic (Culture NOT Included) (06/08/2025 11:57 AM EDT) Color, Urine Yellow LAB URINALYSIS - AUTOMATED METHOD 06/08/2025 1:[address] [facility] Clarity, Urine Clear LAB URINALYSIS - AUTOMATED METHOD 06/08/2025 1:[address] [facility] Spec [place], Urine 1.030 1.005 - 1.030 LAB URINALYSIS - AUTOMATED METHOD 06/08/2025 1:[address] [facility] pH, Urine 5.5 5.0 - 8.0 LAB URINALYSIS - AUTOMATED METHOD 06/08/2025 1:[address] [facility] Protein, Urine Negative Negative mg/dL LAB URINALYSIS - AUTOMATED METHOD 06/08/2025 1:[address] [facility] Glucose, Urine 500(A) Negative mg/dL LAB URINALYSIS - AUTOMATED METHOD 06/08/2025 1:[address] [facility] Ketones, Urine Trace(A) Negative mg/dL LAB URINALYSIS - AUTOMATED METHOD 06/08/2025 1:[address] [facility] Blood, Urine Negative Negative LAB URINALYSIS - AUTOMATED METHOD 06/08/2025 1:[address] [facility] Bilirubin, Urine Negative Negative LAB URINALYSIS - AUTOMATED METHOD 06/08/2025 1:[address] [facility] Urobilinogen, Urine 0.2 0.2 to 1.0 mg/dL LAB URINALYSIS - AUTOMATED METHOD 06/08/2025 1:[address] [facility] Leukocytes, Urine Small(A) Negative LAB URINALYSIS - AUTOMATED METHOD 06/08/2025 1:[address] [facility] Nitrite, Urine Negative Negative LAB URINALYSIS - AUTOMATED METHOD 06/08/2025 1:[address] [facility] RBC, Urine 1 0 to 3 /HPF LAB URINALYSIS - AUTOMATED METHOD 06/08/2025 1:[address] [facility] WBC, Urine 0 - 5 0 to 5 /HPF LAB URINALYSIS - AUTOMATED METHOD 06/08/2025 1:[address] [facility] Squamous Epithelial Cells 3 - 5 0 to 5 /HPF LAB URINALYSIS - AUTOMATED METHOD 06/08/2025 1:[address] [facility] Hyaline Casts 0 - 2 0 to 5 /LPF LAB URINALYSIS - AUTOMATED METHOD 06/08/2025 1:[address] [facility] Bacteria, Urine Present Negative LAB URINALYSIS - AUTOMATED METHOD 06/08/2025 1:[address] [facility] Urine Urine specimen obtained by clean catch procedure / Unknown Non-blood Collection / Unknown 06/08/2025 11:57 AM EDT 06/08/2025 11:57 AM EDT Vane Lim APRN LAB URINE ORDERABLES Final Result [facility] [address] [place] [address] * (ABNORMAL) CBC and Differential (06/08/2025 11:57 AM EDT) WBC Count 5.97 3.70 - 10.30 10*3/uL LAB HEMATOLOGY METHOD 06/08/2025 1:[address] [facility] RBC Count 5.21(H) 3.90 - 5.20 10*6/uL LAB HEMATOLOGY METHOD 06/08/2025 1:[address] [facility] HGB 13.7 11.2 - 15.7 g/dL LAB HEMATOLOGY METHOD 06/08/2025 1:[address] [facility] HCT 42.9 34.0 - 45.0 % LAB HEMATOLOGY METHOD 06/08/2025 1:[address] [facility] Platelet Count 174 155 - 369 10*3/uL LAB HEMATOLOGY METHOD 06/08/2025 1:[address] [facility] MCV 82 79 - 98 fL LAB HEMATOLOGY METHOD 06/08/2025 1:[address] [facility] MCH 26.3 26.0 - 32.0 pg LAB HEMATOLOGY METHOD 06/08/2025 1:[address] [facility] MCHC 31.9 30.7 - 35.5 g/dL LAB HEMATOLOGY METHOD 06/08/2025 1:[address] [facility] RDW 15.4(H) 11.5 - 14.5 % LAB HEMATOLOGY METHOD 06/08/2025 1:[address] [facility] MPV 10.6 8.8 - 12.5 fL LAB HEMATOLOGY METHOD 06/08/2025 1:[address] [facility] nRBC 0.0 <=0.0 per 100 WBCs LAB HEMATOLOGY METHOD 06/08/2025 1:[address] [facility] Differential Type Automated LAB HEMATOLOGY METHOD 06/08/2025 1:[address] [facility] Neutrophils % 57 % LAB HEMATOLOGY METHOD 06/08/2025 1:[address] [facility] Lymphocytes % 31 % LAB HEMATOLOGY METHOD 06/08/2025 1:[address] [facility] Monocytes % 6 % LAB HEMATOLOGY METHOD 06/08/2025 1:[address] [facility] Eosinophils % 3 % LAB HEMATOLOGY METHOD 06/08/2025 1:[address] [facility] Basophils % 2 % LAB HEMATOLOGY METHOD 06/08/2025 1:[address] [facility] Immature Granulocytes % 1 % LAB HEMATOLOGY METHOD 06/08/2025 1:[address] [facility] Neutrophils Absolute 3.46 1.60 - 6.10 10*3/uL LAB HEMATOLOGY METHOD 06/08/2025 1:[address] [facility] Lymphocytes Absolute 1.84 1.20 - 3.90 10*3/uL LAB HEMATOLOGY METHOD 06/08/2025 1:[address] [facility] Monocytes Absolute 0.35 0.30 - 0.90 10*3/uL LAB HEMATOLOGY METHOD 06/08/2025 1:[address] [facility] Eosinophils Absolute 0.19 0.00 - 0.50 10*3/uL LAB HEMATOLOGY METHOD 06/08/2025 1:[address] [facility] Basophils Absolute 0.09 0.00 - 0.10 10*3/uL LAB HEMATOLOGY METHOD 06/08/2025 1:[address] [facility] Immature Granulocytes Absolute 0.04 0.00 - 0.06 10*3/uL LAB HEMATOLOGY METHOD 06/08/2025 1:[address] [facility] Blood Venous blood specimen / Unknown Venipuncture / Unknown 06/08/2025 11:57 AM EDT 06/08/2025 11:[address] [facility] - 06/08/2025 1:57 PM EDT Therapeutic decision making should be based on absolute values, rather than percentages. us Vane Lim APRN LAB BLOOD ORDERABLES Final Result Performing Organization Address City/[facility]/[place] [address] * C3 Complement (06/08/2025 11:57 AM EDT) C3 Complement 126 84 - 166 mg/dL 06/08/2025 3:33 PM EDT [facility] Blood Venous blood specimen / Unknown Venipuncture / Unknown 06/08/2025 11:57 AM EDT 06/08/2025 11:57 AM EDT us Vane Lim APRN LAB BLOOD ORDERABLES Final Result [facility] [address] [place] [address] * C4 Complement (06/08/2025 11:57 AM EDT) C4 Complement 15 13 - 36 mg/dL 06/08/2025 3:[address] [facility] Blood Venous blood specimen / Unknown Venipuncture / Unknown 06/08/2025 11:57 AM EDT 06/08/2025 11:57 AM EDT us Vane Lim JOURNEYMAN WELDER LAB BLOOD ORDERABLES Final Result [facility] [address] [place] [address] * Antinuclear Antibody (JOAN), HEp-2, IgG (06/08/2025 11:57 AM EDT) JOAN INTERPRETIVE COMMENT See Note 06/12/2025 2:44 PM EDT [facility] ([place]) Anti Nuc Ab Screen <1:80 <1:80 06/12/2025 2:44 PM EDT [facility] ([place]) Blood Venous blood specimen / Unknown Venipuncture / Unknown 06/08/2025 11:57 AM EDT 06/08/2025 11:57 AM EDT Narrative [facility] ([facility]) - 06/12/2025 2:44 PM EDT [...] not necessarily rule out SARD. Performed By: [facility] [address] [place] [address] Oyster Grower: Chaz Marcelo MD, PhD CLIA Number: [id number] Vane Lim JOURNEYMAN WELDER LAB BLOOD ORDERABLES Final Result [facility]) [address] [place] [address] * (ABNORMAL) Hepatic Function Panel (06/08/2025 11:57 AM EDT) Direct Bilirubin, Plasma <0.2 <=0.3 mg/dL 06/08/2025 2:[address] [facility] Alkaline Phosphatase, Plasma 105(H) 35 - 104 U/L 06/08/2025 2:[address] [facility] Total Bilirubin, Plasma 0.4 0.2 - 1.1 mg/dL 06/08/2025 2:[address] [facility] Albumin, Plasma 4.2 3.5 - 5.2 g/dL 06/08/2025 2:[address] [facility] Total Protein 7.4 6.3 - 7.9 g/dL 06/08/2025 2:[address] [facility] ALT, Plasma 39(H) 10 - 35 U/L 06/08/2025 2:[address] [facility] AST, Plasma 38(H) 10 - 35 U/L 06/08/2025 2:[address] [facility] Blood Venous blood specimen / Unknown Venipuncture / Unknown 06/08/2025 11:57 AM EDT 06/08/2025 11:57 AM EDT Vane Lim APRN LAB BLOOD ORDERABLES Final Result [facility] [address] [place] [address] * POCT glycosylated hemoglobin (Hb A1C) (06/01/2025 12:47 PM EDT) POCT Hemoglobin A1C 6.8 <5.7% Non-Diabet ic % [facility] Kit Lot Number [id number] [facility] Kit Expiration Date 04/2027 [facility] Blood Venous blood specimen / Unknown 06/01/2025 12:47 PM EDT us Nkechi Celeste JOURNEYMAN WELDER POINT OF CARE TEST ENTER /EDIT ORDERABLES Final Result Performing Organization Address City/[facility]/ZIP Co de Phone Number [facility] [address] [place] [address] * Acute Hepatitis Panel (12/21/2023 11:06 AM EDT) Hepatitis B Surf Antigen Negative Negative 12/21/2023 2:38 PM EDT [facility] Hepatitis C Antibody Negative Negative 12/21/2023 2:38 PM EDT [facility] Hepatitis A Antibody IgM Negative Negative 12/21/2023 2:38 PM EDT [facility] Hepatitis B Core Antibody IgM Negative Negative 12/21/2023 2:38 PM EDT [facility] Blood Venous blood specimen / Unknown Venipuncture / Unknown 12/21/2023 11:06 AM EDT 12/21/2023 11:07 AM EDT us Vane Lim JOURNEYMAN WELDER LAB BLOOD ORDERABLES Final Result [facility] [address] [place] [address] from Last 3 Months or Most Recently Relevant to Health Maintenance Insurance ANTH Care Teams Supervisor Poultry Processing Relationship Specialty Start Date End Date Alissa Faria APRN [address] [place] [address] PCP - General 04/17/24
--- OUTSIDE RECORDS SUMMARY | 2025-06-12 22:36 | XMS_ITS | Encounter Summary ---
Author Organization [place] [address] Care Team Providers Care Building Rental Superintendent Name Role Phone Amy Ervin MD Unavailable [phone] Anshul Stephen MD Primary Care Provider + [phone] Luis Daniel Silvestre MD Unavailable [phone] Encounter Details Date Type Department Care Team (Late st Contact Info) Description 06/15/2017 Orders Only SEP Arrhythmia Ctr Edg [address] [facility] [address] [place] [address] Luis Daniel Silvestre MD [address] [place] [address] Social History Tobacco Use Types [...] Silvestre MD CARDIAC CATH ORDERABLES Final Result [facility] [address] [place] [address] documented in this encounter Visit Diagnoses Not on filedocumented in this encounter Care Teams Building Rental Superintendent Relationship Specialty Start Date End Date Anshul Stephen MD [address] [place] [address] PCP - General Emergency Medicine 05/20/17 Amy Ervin MD [address] [place] [address] [place] [address] Consulting Physician Internal Medicine - Clinical Cardiac Electrophysiology 05/20/17 07/25/17 Luis Daniel Silvestre MD [address] [place] [address] Consulting Physician Internal Medicine - Clinical Cardiac Electrophysiology 07/26/17 documented as of this encounter
--- OUTSIDE RECORDS SUMMARY | 2025-06-12 22:36 | XMS_ITS | Clinical Summary ---
Author Organization [facility] Address [address] [place] [address] Phone Care Team Providers Care Sports Development Officer Name Role Phone Anshul Stephen MD Primary Care Provider + [phone] Luis Daniel Silvestre MD Unavailable [phone] Allergies No known active allergies Medications VENTOLIN HFA 90 mcg/actuation Inhl HFA Aerosol Inhaler Inhale 2 Puffs into the lungs every 6 hours as needed. 04/28/2017 Active DULoxetine (CYMBALTA) 20 mg Oral Capsule, Delayed Release(E.C.) Take 20 mg by mouth daily. 04/28/2017 Active fluticasone (FLONASE) 50 mcg/actuation Nasl [place], Suspension 1 [place] by Nasal route daily as needed. 04/28/2017 [...] Diabetes mellitus (HCC) Thyroid disease Multiple sclerosis being tested for now,having some left side weakness and [...] MM MOBILE MAMMO DIGITAL SCREEN W CAD RKIA Routine 03/23/2013 2:40 PM EDT Other screening mammogram from Last 3 Months or Most Recently Relevant to Health Maintenance Results * MM MOBILE MAMMO DIGITAL SCREEN W CAD RIKA (03/23/2013 2:40 PM EDT) Anatomical Region Laterality Modality Breast Mammography 03/24/2013 7:57 AM EDT Impressions 03/24/2013 3:51 PM EDT : Negative ([id number]) ~ RECOMMENDATION: Routine screening mammogram in 1 [...] densities. No suspicious calcifications. ~ IMPRESSION: Negative ([id number]) ~ RECOMMENDATION: Routine screening mammogram in 1 [...] a Radiologist and CAD. Nicholas Bains Sr., MD [facility] Final Result from Last 3 Months or Most Recently Relevant to Health Maintenance Insurance [facility] Member Subscriber Plan / Payer (Ef fective 2016-Present) Name:Manisha Desouza Relation to Subscriber:Spouse Name:RILEY DESOUZA Date of :1971 (Home) Address: [id number] [facility] [address] Payer ID:[id number] (NAIC) Type:Not on file Address: [address] [place] [id number] [facility] [employer] PL[employer] Care Teams Sports Development Officer Relationship Specialty Start Date End Date Anshul Stephen MD [address] [facility] [address] [place] [address] PCP - General Emergency Medicine 05/20/17 Luis Daniel Silvestre MD [address] [facility] [place] [address] Consulting Physician Internal Medicine - Clinical Cardiac Electrophysiology 07/26/17
--- OUTSIDE RECORDS SUMMARY | 2025-06-12 22:36 | XMS_ITS | Encounter Summary ---
Author Organization [facility] Address [address] [place] [address] Care Team Providers Care Rn Night Name Role Phone Alissa Faria WILTON Primary Care Provider [phone] Reason for Visit * Reason Comments Med Refill Encounter Details Date Type Department Care Team (Late st Contact Info) Description 04/19/2025 Refill [facility] Endocrinology [address] [place] [address] Nkechi Celeste PROPERTY SUPERVISOR [address] [facility] [address] [place] [address] Social History Tobacco Use Types [...] Description 09/14/2025 2:20 PM EST Office Visit [facility] [address] [place] [address] Vane Lim, PROPERTY SUPERVISOR [address] [place] [address] 09/21/2025 12:20 PM EST Office Visit [facility] Endocrinology [address] [place] [address] Nkechi Celeste, PROPERTY SUPERVISOR [address] [place] [address] documented as of this encounter Visit Diagnoses Not on filedocumented in this encounter Additional Health Concerns Assessment Noted Time A fall risk assessment has been complete d for the patient 06/09/2024 10:35 AM EDT A Body Mass Index follow-up plan has been documented for the patient 03/02/2025 1:18 PM EDT documented as of this encounter Care Teams Rn Night Relationship Specialty Start Date End Date Alissa Faria APRN [address] [place] [address] PCP - General 04/17/24 documented as of this encounter
--- OUTSIDE RECORDS SUMMARY | 2025-06-12 22:36 | XMS_ITS | Clinical Summary ---
Author Organization [facility] Address [address] [place] [address] Care Team Providers Care Bookkeeping Teacher Name Role Phone Leann Wilks APRN Primary Care Provider [phone] Social History Tobacco Use Types Packs/Day Years [...] C SCREENING Completed 12/21/2023 HEMOGLOBIN A1C Discontinued 06/01/2025, 02/05, 10/13/2024, Additional history exists Insurance MEDICAID PENDING on file Care Teams Bookkeeping Teacher Relationship Specialty Start Date End Date Leann Wilks APRN [address] [facility] [address] [place] [address] PCP - General Nurse Practitioner 08/12/20
== END 2025-06-12 23:59 | disposition home or self-care (01) ==
LOC: LAB.DROPOF 22:32
PROVIDERS: PCP Family Medicine; Visit Provider Family Medicine
DX: N39.0 Urinary tract infection, site not specified (principal)
CPT/HCPCS: 87086

== ENCOUNTER 2025-07-02 14:00 | Outpatient (CLI) | payer BC, SELFPAY ==
--- OUTSIDE RECORDS SUMMARY | 2025-06-01 12:40 | XMS_ITS | Encounter Summary ---
Author Organization [facility] Address [address] [place] [address] Care Team Providers Care Leather Grader Name Role Phone Gustavo Fariaica WILTON Primary Care Provider [phone] Reason for Referral * Medications - Closed Specialty Diagnoses / Procedures Referred By Tay chatterjee Referred To Contact Diagnoses Type 2 diabetes mellitus with other specified complication, unspecified whether halfway insulin use Nkechi Celeste APRN [address] [address] Phone: tel: fax: Referral ID Status Reason Start Date Expiration Date Visits Re quested Visits Authorized [id number] Closed 1 1 * Medications - Closed Specialty Diagnoses / Procedures Referred By Tay chatterjee Referred To Contact Diagnoses Type 2 diabetes mellitus with other specified complication, 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 Nkechi Celeste APRN [address] [address] Phone: tel: fax: Referral ID Status Reason Start Date Expiration Date Visits Re quested Visits Authorized [id number] Closed 1 1 * Medications - Closed Specialty Diagnoses / Procedures Referred By Tay chatterjee Referred To Contact Diagnoses Type 2 diabetes mellitus with other specified complication, unspecified whether halfway insulin use Nkechi Celeste APRN [address] [address] Phone: tel: fax: Referral ID Status Reason Start Date Expiration Date Visits Re quested Visits Authorized [id number] Closed 1 1 * Consultation (Routine) - Authorized Specialty Diagnoses / Procedures Referred By Tay chatterjee Referred To Contact Diagnoses Type 2 diabetes mellitus with other specified complication, 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 Nkechi Celeste APRN [address] [address] Phone: tel: fax: Referral ID Status Reason Start Date Expiration Date V isits Requested Visits Authorized [id number] Authorized 06/01/2025 12/01/2026 1 1 Reason for Visit * Reason Comments Diabetes * Consultation (Routine) - Closed Specialty Diagnoses / Procedures Referred By Tay chatterjee Referred To Contact Diagnoses Type 2 diabetes mellitus with other specified complication, unspecified whether halfway insulin use Nkechi Celeste APRN [address] [address] Phone: tel: fax: Referral ID Status Reason Start Date Expiration Date Visits Re quested Visits Authorized [id number] Closed 03/02/2025 09/01/2026 1 1 Encounter Details Date Type Department Care Team (Late st Contact Info) Description 06/01/2025 12:40 PM EDT Office Visit [facility] [address] [place] [address] Nkechi Celeste APRN [address] [address] Type 2 diabetes mellitus with other specified complication, unspecified whether halfway insulin use ([facility]) (Primary Dx); Neuropathy; Hyperlipidemia, unspecified hyperlipidemia [...] per day Current exercise: walking works at [employer] CGM data review: Dexcom Dates: 05/15/2025-05/28/2025 Data: [...] (H) No results found for: CPEPTIDE , [id number] , ZNT8A , NTIB The following portions [...] mellitus with other specified complication, unspecified whether halfway insulin use ([facility]) - POCT glycosylated hemoglobin (Hb A1C) - Follow Up [facility]; Future - tirzepatide (Mounjaro) 7.5 MG/0.5ML solution auto-injector solution pen- injector; Inject 0.5 mL under the skin 1 time per week. - glipiZIDE (Glucotrol) 10 MG tablet; Take 1 tablet by mouth daily before breakfast. - Continuous Glucose Transmitter (Dexcom G6 transmitter) [facility]; Use as instructed with Dexcom G6 sensor, change every 90 days - Continuous Glucose Sensor (Dexcom G6 Sensor) misc; 1 sensor every 10 days. - insulin glargine (Lantus SoloStar) 100 UNIT/ML injection pen; INJECT 40 UNITS SUBCUTANEOUSLY AT BEDTIME. TITRATE DIRECTED. MAX DAILY DOSE OF 75 UNITS Neuropathy Hyperlipidemia, unspecified hyperlipidemia type Obesity (BMI 30-39.9) Other orders - Follow Up [facility] Diabetes Mellitis Type 2, is controlled. Patient [...] care. Electronically signed by: Nkechi Celeste APRN [facility] [address] [facility]. [address] [place]. [address] PHONE [phone] FAX: [phone] documented in this encounter Plan of Treatment Upcoming Encounters Date Type Department Care Team (Late st Contact Info) Description 09/14/2025 2:20 PM EST Office Visit [facility] Medicine Specialties [address], [address] [place] [address] Vane Lim APRN [address] [place] [address] 09/21/2025 12:20 PM EST Office Visit [facility] Endocrinology [address] [place] [address] Nkechi Celeste APRN 2[address] [facility] [address] [place] [address] Scheduled Referrals Name Type Priority Associated Diagnoses Orde r Schedule Follow Up [facility] Outpatient Referral Routine Type 2 diabetes mellitus with other specified complication, unspecified whether halfway insulin use ([facility]) Expected: 08/31/2025, Expires: 12/03/2026 documented as of this encounter Procedures Procedure Name Priority Date/Time Associated Diagnosis Comments POCT GLYCOSYLATED HEMOGLOBIN (HGB A1C) Routine 06/01/2025 12:47 PM EDT Type 2 diabetes mellitus with other specified complication, unspecified whether halfway insulin use ([facility]) documented in this encounter Results * POCT glycosylated hemoglobin (Hb A1C) (06/01/2025 12:47 PM EDT) POCT Hemoglobin A1C 6.8 <5.7% Non-Diabet ic % [facility] Kit Lot Number [id number] [facility] Kit Expiration Date 04/2027 [facility] Blood Venous blood specimen / Unknown 06/01/2025 12:47 PM EDT Nkechi Celeste PARTS CLERK POINT OF CARE TEST ENTER /EDIT ORDERABLES Final Result [facility] [address] [place] [address] documented in this encounter Visit Diagnoses Diagnosis Type 2 diabetes mellitus with other specified complication, unspecified whether halfway insulin use- Primary Neuropathy Mononeuritis of unspecified site Hyperlipidemia, unspecified hyperlipidemia type Obesity (BMI 30-39.9) documented in this encounter Additional Health Concerns Assessment Noted Time A fall risk assessment has been complete d for the patient 06/09/2024 10:35 AM EDT A Body Mass Index follow-up plan has been documented for the patient 06/01/2025 2:51 PM EDT documented as of this encounter Care Teams Leather Grader Relationship Specialty Start Date End Date Alissa Faria APRN [address] [place] [address] PCP - General 04/17/24 documented as of this encounter
--- OUTSIDE RECORDS SUMMARY | 2025-06-08 10:30 | XMS_ITS | Encounter Summary ---
Author Organization [facility] Address [address] [place] [address] Care Team Providers Care Client Technologies Analyst Name Role Phone Alissa Faria WILTON Primary Care Provider [phone] Reason for Visit * Reason Comments Antiphospholipid antibody syndrome (CMS/ HCC Encounter Details Date Type Department Care Team (Latest Contact Info) Description 06/08/2025 10:30 AM EDT Office Visit [facility] [address] [address] Josefa Lim APRN [address] [phone] Antiphospholipid antibody syndrome (CMS/HCC) (Primary Dx); [...] patient will be having a EGD in [place] by 12/23/23. The patient does not have [...] hx of TB. 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 Family and Community Support Help with Day-to-Day Activities: Not on file Lonely or Isolated: Not on file Intimate Partner Violence: Unknown (06/14/2023) Received from [facility] Abuse Screen Unsafe at Home or Work/School: Not on file Feels Threatened by Someone?: Not on file Does Anyone Keep You from Contacting Others or Doint Things Outside the Home?: Not on file Physical Sign of Abuse Present: Not on file Housing Stability: Unknown (06/14/2023) Received from [facility] Housing Stability Current Living Arrangements: Not [...] Differential Creatinine, Plasma Hepatic Function Panel aspirin (Lengow Aspirin) 325 MG tablet Antinuclear Antibody (JOAN), HEp-2, IgG Double-Stranded DNA (dsDNA) Antibody, IgG by IFA C3 Complement C4 Complement ENAI ENAII Protein, Random, Urine with Creatinine Chambers (RANDA) Antibody, IgG Thyroid Peroxidase Antibody Creatinine, Random, Urine Urinalysis with reflex microscopic (Culture NOT Included) 2. Positive JOAN (antinuclear antibody) CBC and Differential Creatinine, Plasma Hepatic Function Panel aspirin (Lengow Aspirin) 325 MG tablet Antinuclear Antibody (JOAN), HEp-2, IgG Double-Stranded DNA (dsDNA) Antibody, IgG by IFA C3 Complement C4 Complement ENAI ENAII Protein, Random, Urine with Creatinine Chambers (RANDA) Antibody, IgG Thyroid Peroxidase Antibody Creatinine, Random, Urine Urinalysis with reflex microscopic (Culture NOT Included) 3. Psoriasis, unspecified CBC and Differential Creatinine, Plasma Hepatic Function Panel aspirin (Lengow Aspirin) 325 MG tablet Antinuclear Antibody (JOAN), [...] Differential Creatinine, Plasma Hepatic Function Panel aspirin (Lengow Aspirin) 325 MG tablet Antinuclear Antibody (JOAN), [...] RANDA, UA, urine protein/crea normal -JOAN-, Chambers-, IMPLEMENTATION SPECIALIST PAYROLL-, SSA-, SSB-, centromere ab- at PCP -Rheumatological [...] and is currently seeing Dr. Motley at [facility] -Crea 1.10, GFR 52--current 06/08/25 [...] Date BLADDER SURGERY N/A Bladder Surgery from [facility] GALLBLADDER SURGERY N/A Anastomosis Of Gallbladder from [facility] HYSTERECTOMY N/A Hysterectomy from [facility] OTHER SURGICAL HISTORY N/A Exploratory Laparoscopy from [facility] WISDOM TOOTH EXTRACTION N/A Oral Surgery Tooth Extraction [place] [facility] from [facility] [3] Family History Problem Relation Name Age [...] [place] cancer Autoimmune disease Father's Brother Warren Rosholt cancer [4] Allergies Allergen Reactions Metformin Nausea [...] hr tablet cholecalciferol (Vitamin D-3) 1.25 MG (42184 UT) capsule TAKE 1 CAPSULE Weekly clobetasol [...] daily. 90 tablet 3 ergocalciferol 1.25 MG (13728 UT) capsule furosemide (Lasix) 80 MG tablet [...] [facility] Medicine Specialties [address] [address] Josefa Lim APRN [address] [facility] [address] [phone] 09/21/2025 12:20 PM EST Office Visit [facility] Endocrinology [address] [place] [phone] Nkechi Celeste, BIBLIOGRAPHIC SERVICES SPECIALIST [address] [facility] [address] [phone] Scheduled Orders Name Type Priority Associated Diagnoses [...] - AUTOMATED METHOD 06/08/2025 1:43 PM EDT [facility] Clarity, Urine Clear LAB URINALYSIS - AUTOMATED METHOD 06/08/2025 1:43 PM EDT [facility] Spec [place], Urine 1.030 1.005 - 1.030 LAB URINALYSIS - AUTOMATED METHOD 06/08/2025 1:43 PM EDT [facility] pH, Urine 5.5 5.0 - 8.0 LAB URINALYSIS - AUTOMATED METHOD 06/08/2025 1:43 PM EDT [facility] Protein, Urine Negative Negative mg/dL LAB URINALYSIS - AUTOMATED METHOD 06/08/2025 1:43 PM EDT [facility] Glucose, Urine 500(A) Negative mg/dL LAB URINALYSIS - AUTOMATED METHOD 06/08/2025 1:43 PM EDT [facility] Ketones, Urine Trace(A) Negative mg/dL LAB URINALYSIS - AUTOMATED METHOD 06/08/2025 1:43 PM EDT [facility] Blood, Urine Negative Negative LAB URINALYSIS - AUTOMATED METHOD 06/08/2025 1:43 PM EDT [facility] Bilirubin, Urine Negative Negative LAB URINALYSIS - AUTOMATED METHOD 06/08/2025 1:43 PM EDT [facility] Urobilinogen, Urine 0.2 0.2 to 1.0 mg/dL LAB URINALYSIS - AUTOMATED METHOD 06/08/2025 1:43 PM EDT [facility] Leukocytes, Urine Small(A) Negative LAB URINALYSIS - AUTOMATED METHOD 06/08/2025 1:43 PM EDT [facility] Nitrite, Urine Negative Negative LAB URINALYSIS - AUTOMATED METHOD 06/08/2025 1:43 PM EDT [facility] RBC, Urine 1 0 to 3 /HPF LAB URINALYSIS - AUTOMATED METHOD 06/08/2025 1:43 PM EDT [facility] WBC, Urine 0 - 5 0 to 5 /HPF LAB URINALYSIS - AUTOMATED METHOD 06/08/2025 1:43 PM EDT [facility] Squamous Epithelial Cells 3 - 5 0 to 5 /HPF LAB URINALYSIS - AUTOMATED METHOD 06/08/2025 1:43 PM EDT [facility] Hyaline Casts 0 - 2 0 to 5 /LPF LAB URINALYSIS - AUTOMATED METHOD 06/08/2025 1:43 PM EDT [facility] Bacteria, Urine Present Negative LAB URINALYSIS - AUTOMATED METHOD 06/08/2025 1:43 PM EDT [facility] Urine Urine specimen obtained by clean catch procedure / Unknown Non-blood Collection / Unknown 06/08/2025 11:57 AM EDT 06/08/2025 11:57 AM EDT Josefa Lim APRN LAB URINE ORDERABLES Final Result Performing Organization Address City/[facility]/ZIP Co de Phone Number [facility] [address] [place] [address] * Thyroid Peroxidase Antibody (06/08/2025 11:57 AM EDT) Thyroid Peroxidase Antibody <5 <=8 IU/mL 06/08/2025 4:18 PM EDT [facility] Blood Venous blood specimen / Unknown Venipuncture / Unknown 06/08/2025 11:57 AM EDT 06/08/2025 11:57 AM EDT Josefa Lim APRN LAB BLOOD ORDERABLES Final Result Performing Organization Address City/[facility]/ZIP Co de Phone Number [facility] [address] [place] [address] * Chambers (RANDA) Antibody, IgG (06/08/2025 11:57 AM EDT) Chambers (RANDA) Antibody, IgG 4 0 - 40 AU/mL 06/10/2025 3:57 PM EDT [facility] ([facility]) Serum 06/08/2025 11:5 7 AM EDT 06/08/2025 11:57 AM EDT Narrative [facility] ([facility]) - 06/10/2025 3:57 PM EDT INTERPRETIVE INFORMATION: [...] associations with SLE clinical manifestations. Performed By: [facility] [address] [place] [address] Automobile And Property Underwriter: Chaz Marcelo MD, PhD CLIA Number: [id number] Josefa Lim BIBLIOGRAPHIC SERVICES SPECIALIST LAB REF LAB BLOOD AND FLUI D ORD Final Result [facility] Preferred [employer] [address] * Protein, Random, Urine with Creatinine (06/08/2025 11:57 AM EDT) Protein, Urine 14 mg/dL 06/08/2025 1:51 PM EDT [facility] Creatinine, Urine 138 mg/dL 06/08/2025 1:51 PM EDT [facility] Protein/Creatin ine Ratio 0.1 mg/mg Creat 06/08/2025 1:51 PM EDT [facility] Urine Urine specimen obtained by clean catch procedure / Unknown Non-blood Collection / Unknown 06/08/2025 11:57 AM EDT 06/08/2025 11:57 AM EDT Josefa Lim APRN LAB URINE ORDERABLES Final Result [facility] [address] [place] [address] * ENAII (06/08/2025 11:57 AM EDT) SSA-52 (RO52) (RANDA) Antibody, IgG 2 0 - 40 AU/mL 06/12/2025 10:00 AM EDT [facility] ([facility]) SSA-60 (RO60) (RANDA) Antibody, IgG 1 0 - 40 AU/mL 06/12/2025 10:00 AM EDT [facility] ([facility]) SSB (LA) (RANDA) Antibody, IgG 1 0 - 40 AU/mL 06/12/2025 10:00 AM EDT [facility] ([facility]) Blood Venous blood specimen / Unknown Venipuncture / Unknown 06/08/2025 11:57 AM EDT 06/08/2025 11:57 AM EDT Narrative [facility] ([facility]) - 06/12/2025 10:00 AM EDT INTERPRETIVE INFORMATION: [...] (PSS) also have this antibody. Performed By: [facility] [address] [place] [address] Automobile And Property Underwriter: Chaz Marcelo MD, PhD CLIA Number: [id number] Josefa Lim BIBLIOGRAPHIC SERVICES SPECIALIST LAB BLOOD ORDERABLES Final Result Performing Organization Address [facility] de Phone Number [facility] ([facility]) [address] [place] [address] * ENAI (06/08/2025 11:57 AM EDT) [facility] Chambers/IMPLEMENTATION SPECIALIST PAYROLL (RANDA) Ab, IgG 4 0 - 19 Units 06/12/2025 10:[address] [facility] ([facility] Blood Venous blood specimen / Unknown Venipuncture / Unknown 06/08/2025 11:57 AM EDT 06/08/2025 11:57 AM EDT N[address] [facility] ([facility]) - 06/12/2025 10:59 PM EDT INTERPRETIVE INFORMATION: Chambers/IMPLEMENTATION SPECIALIST PAYROLL (RANDA) Antibody, IgG 19 Units or Less ............. Negative 20 to 39 Units ............... Weak Positive 40 to 80 Units ............... Moderate Positive 81 Units or greater .......... Strong Positive Chambers/IMPLEMENTATION SPECIALIST PAYROLL antibodies are frequently seen in patients with mixed connective tissue disease (MCTD) and are also associated with other systemic autoimmune rheumatic diseases (SARDs) such as systemic lupus erythematosus (SLE), systemic sclerosis, and myositis. Antibodies targeting the Chambers/IMPLEMENTATION SPECIALIST PAYROLL antigenic complex also recognize Chambers antigens, therefore, the Chambers antibody response must be considered when interpreting these results. Performed By: [facility] [address] [place] [address] Automobile And Property Underwriter: Chaz Marcelo MD, PhD CLIA Number: [id number] Josefa Lim BIBLIOGRAPHIC SERVICES SPECIALIST LAB BLOOD ORDERABLES Final Result Performing Organization Address [facility] Co de Phone Number [facility] ([facility]) [address] [place] [address] * C4 Complement (06/08/2025 11:57 AM EDT) C4 Complement 15 13 - 36 mg/dL 06/08/2025 3:33 PM EDT [facility] Blood Venous blood specimen / Unknown Venipuncture / Unknown 06/08/2025 11:57 AM EDT 06/08/2025 11:57 AM EDT Josefa Lim BIBLIOGRAPHIC SERVICES SPECIALIST LAB BLOOD ORDERABLES Final Result Performing Organization Address City/[facility]/ZIP Co de Phone Number [facility] [address] [place] [address] * C3 Complement (06/08/2025 11:57 AM EDT) C3 Complement 126 84 - 166 mg/dL 06/08/2025 3:[address] [facility] Blood Venous blood specimen / Unknown Venipuncture / Unknown 06/08/2025 11:57 AM EDT 06/08/2025 11:57 AM EDT Josefa Lim BIBLIOGRAPHIC SERVICES SPECIALIST LAB BLOOD ORDERABLES Final Result Performing Organization Address [facility] [place] [address] * Double-Stranded DNA (dsDNA) Antibody, IgG by IFA (06/08/2025 11:57 AM EDT) Double-Strande d DNA (dsDNA) Ab IgG IFA <1:10 <1:10 06/14/2025 12:26 AM EDT [facility] ([facility]) Blood Venous blood specimen / Unknown Venipuncture / Unknown 06/08/2025 11:57 AM EDT 06/08/2025 11:57 AM EDT Narrative [facility] ([facility]) - 06/14/2025 12:26 AM EDT [...] recommendations for testing may be found at [email or web address]/content/[email or web address]. Performed By: [facility] [address] [place] [address] Automobile And Property Underwriter: Chaz Marcelo MD, PhD CLIA Number: [id number] us Josefa Lim BIBLIOGRAPHIC SERVICES SPECIALIST LAB BLOOD ORDERABLES Final Result [facility] My[employer]) [address] [place] [address] * Antinuclear Antibody (JOAN), HEp-2, IgG (06/08/2025 11:57 AM EDT) JOAN INTERPRETIVE COMMENT See Note 06/12/2025 2:44 PM EDT [facility] ([facility]) Anti Nuc Ab Screen <1:80 <1:80 06/12/2025 2:44 PM EDT [facility] ([facility]) Blood Venous blood specimen / Unknown Venipuncture / Unknown 06/08/2025 11:57 AM EDT 06/08/2025 11:57 AM EDT Narrative [facility] ([facility]) - 06/12/2025 2:44 PM EDT Clinical Interpretation: [...] not necessarily rule out SARD. Performed By: [facility] [address] [place] [address] Automobile And Property Underwriter: Chaz Marcelo MD, PhD CLIA Number: [id number] Josefa Lim BIBLIOGRAPHIC SERVICES SPECIALIST LAB BLOOD ORDERABLES Final Result [facility] ([facility]) [address] [place] [address] * (ABNORMAL) Hepatic Function Panel (06/08/2025 11:57 AM EDT) Direct Bilirubin, Plasma <0.2 <=0.3 mg/dL 06/08/2025 2:08 PM EDT [facility] Alkaline Phosphatase, Plasma 105(H) 35 - 104 U/L 06/08/2025 2:08 PM EDT [facility] Total Bilirubin, Plasma 0.4 0.2 - 1.1 mg/dL 06/08/2025 2:08 PM EDT [facility] Albumin, Plasma 4.2 3.5 - 5.2 g/dL 06/08/2025 2:08 PM EDT [facility] Total Protein 7.4 6.3 - 7.9 g/dL 06/08/2025 2:08 PM EDT [facility] ALT, Plasma 39(H) 10 - 35 U/L 06/08/2025 2:08 PM EDT [facility] AST, Plasma 38(H) 10 - 35 U/L 06/08/2025 2:08 PM EDT [facility] Blood Venous blood specimen / Unknown Venipuncture / Unknown 06/08/2025 11:57 AM EDT 06/08/2025 11:57 AM EDT Josefa Lim APRN LAB BLOOD ORDERABLES Final Result Performing Organization Address [facility] Co de Phone Number [facility] [address] [place] [address] * Creatinine, Plasma (06/08/2025 11:57 AM EDT) Creatinine, Plasma 0.76 0.60 - 1.10 mg/dL 06/08/2025 2:08 PM EDT [facility] eGFRcr 94.4 mL/min/1.7 3m*2 06/08/2025 2:08 PM EDT [facility] Comment:Reported eGFRcr in m L/min/1.73m2 is based the CKD-EPI 2020 equation that does not use a race coefficient. Blood Venous blood specimen / Unknown Venipuncture / Unknown 06/08/2025 11:57 AM EDT 06/08/2025 11:57 AM EDT Josefa Lim APRN LAB BLOOD ORDERABLES Final Result Performing Organization Address [facility] Co de Phone Number [facility] [address] [place] [address] * (ABNORMAL) CBC and Differential (06/08/2025 11:57 AM EDT) WBC Count 5.97 3.70 - 10.30 10*3/uL LAB HEMATOLOGY METHOD 06/08/2025 1:57 PM EDT [facility] RBC Count 5.21(H) 3.90 - 5.20 10*6/uL LAB HEMATOLOGY METHOD 06/08/2025 1:57 PM EDT [facility] HGB 13.7 11.2 - 15.7 g/dL LAB HEMATOLOGY METHOD 06/08/2025 1:57 PM EDT [facility] HCT 42.9 34.0 - 45.0 % LAB HEMATOLOGY METHOD 06/08/2025 1:57 PM EDT [facility] Platelet Count 174 155 - 369 10*3/uL LAB HEMATOLOGY METHOD 06/08/2025 1:57 PM EDT [facility] MCV 82 79 - 98 fL LAB HEMATOLOGY METHOD 06/08/2025 1:57 PM EDT [facility] MCH 26.3 26.0 - 32.0 pg LAB HEMATOLOGY METHOD 06/08/2025 1:57 PM EDT [facility] MCHC 31.9 30.7 - 35.5 g/dL LAB HEMATOLOGY METHOD 06/08/2025 1:57 PM EDT [facility] RDW 15.4(H) 11.5 - 14.5 % LAB HEMATOLOGY METHOD 06/08/2025 1:57 PM EDT [facility] MPV 10.6 8.8 - 12.5 fL LAB HEMATOLOGY METHOD 06/08/2025 1:57 PM EDT [facility] nRBC 0.0 <=0.0 per 100 WBCs LAB HEMATOLOGY METHOD 06/08/2025 1:57 PM EDT [facility] Differential Type Automated LAB HEMATOLOGY METHOD 06/08/2025 1:57 PM EDT [facility] Neutrophils % 57 % LAB HEMATOLOGY METHOD 06/08/2025 1:57 PM EDT [facility] Lymphocytes % 31 % LAB HEMATOLOGY METHOD 06/08/2025 1:57 PM EDT [facility] Monocytes % 6 % LAB HEMATOLOGY METHOD 06/08/2025 1:57 PM EDT [facility] Eosinophils % 3 % LAB HEMATOLOGY METHOD 06/08/2025 1:57 PM EDT [facility] Basophils % 2 % LAB HEMATOLOGY METHOD 06/08/2025 1:57 PM EDT [facility] Immature Granulocytes % 1 % LAB HEMATOLOGY METHOD 06/08/2025 1:57 PM EDT [facility] Neutrophils Absolute 3.46 1.60 - 6.10 10*3/uL LAB HEMATOLOGY METHOD 06/08/2025 1:57 PM EDT [facility] Lymphocytes Absolute 1.84 1.20 - 3.90 10*3/uL LAB HEMATOLOGY METHOD 06/08/2025 1:57 PM EDT [facility] Monocytes Absolute 0.35 0.30 - 0.90 10*3/uL LAB HEMATOLOGY METHOD 06/08/2025 1:57 PM EDT [facility] Eosinophils Absolute 0.19 0.00 - 0.50 10*3/uL LAB HEMATOLOGY METHOD 06/08/2025 1:57 PM EDT [facility] Basophils Absolute 0.09 0.00 - 0.10 10*3/uL LAB HEMATOLOGY METHOD 06/08/2025 1:57 PM EDT [facility] Immature Granulocytes Absolute 0.04 0.00 - 0.06 10*3/uL LAB HEMATOLOGY METHOD 06/08/2025 1:57 PM EDT [facility] Blood Venous blood specimen / Unknown Venipuncture / Unknown 06/08/2025 11:57 AM EDT 06/08/2025 11:57 AM EDT Narrative [facility] - 06/08/2025 1:57 PM EDT Therapeutic decision making should be based on absolute values, rather than percentages. Josefa Lim APRN LAB BLOOD ORDERABLES Final Result [facility] [address] [place] [address] documented in this encounter Visit Diagnoses Diagnosis [...] documented as of this encounter Care Teams Client Technologies Analyst Relationship Specialty Start Date End Date Alissa Faria APRN [address] [place] [address] PCP - General 04/17/24 documented as of this encounter
--- OUTSIDE RECORDS SUMMARY | 2025-07-03 10:03 | XMS_ITS | Clinical Summary ---
Author Organization Address [address] [place] [address] Care Team Providers Care Interpreter Translator Name Role Phone Alissa Faria APRN Primary Care Provider [phone] Allergies Active Allergy Reactions Criticality Noted Date Comments Metformin Nausea,Diarrhea High 09/30/2023 Medications pramipexole (Mirapex) 0.125 MG tablet 08/16/20 20 Active albuterol 108 (90 Base) MCG/ACT inhaler 08/19/20 20 Active cholecalciferol (Vitamin D-3) 1.25 MG (72060 UT) capsule TAKE 1 CAPSULE Weekly 08/16/20 [...] MG tablet 07/13/20 Active ergocalciferol 1.25 MG (79596 UT) capsule 06/22/20 Active clobetasol (Temovate) 0.05 [...] mellitus with other specified complication, unspecified whether long-term insulin use Test 2 times each day, Dx E11.9 1 kit 07/07/20 24 Active Glucose Blood (Blood Glucose Test) stripIndication s:Type 2 diabetes mellitus with other specified complication, unspecified whether roaster helper insulin use Use as directed to test blood glucose level 2 times per day or to calibrate CGM DX E11.9 100 strip 3 07/07/20 24 Active Lancets miscIndications :Type 2 diabetes mellitus with other specified complication, unspecified whether roaster helper insulin use Use to test blood glucose [...] mellitus with other specified complication, unspecified whether long-term insulin use Take 1 tablet by mouth daily. 90 tablet 3 03/02/20 25 026 Active tirzepatide (Mounjaro) 7.5 MG/0.5ML solution auto-injector solution pen-injectorInd ications:Type 2 Diabetes Mellitus Inject 0.5 mL under the skin 1 time per week. 2 mL 5 06/01/20 25 026 Active glipiZIDE (Glucotrol) 10 MG tabletIndicatio ns:Type 2 diabetes mellitus with other specified complication, unspecified whether long-term insulin use Take 1 tablet by mouth daily before breakfast. 90 tablet 3 06/01/20 25 026 Active Continuous Glucose Transmitter (Dexcom G6 transmitter) miscIndications :Type 2 diabetes mellitus with other specified complication, unspecified whether long-term insulin use Use as instructed with Dexcom G6 sensor, change every 90 days 1 each 06/01/20 25 Active Continuous Glucose Sensor (Dexcom G6 Sensor) miscIndications :Type 2 diabetes mellitus with other specified complication, unspecified whether long-term insulin use 1 sensor every 10 days. 9 each 3 06/01/20 25 026 Active insulin glargine (Lantus SoloStar) 100 UNIT/ML injection penIndications: Type 2 diabetes mellitus with other specified complication, unspecified whether roaster helper insulin use INJECT 40 UNITS SUBCUTANEOUSLY AT [...] daily. 90 tablet 3 06/08/20 25 Active aspirin (Yaritza Aspirin) 325 MG tabletIndicatio ns:Antiphosphol ipid antibody syndrome (CMS/HCC) Take 1 tablet (325 mg) by mouth 1 (one) time each day. 90 tablet 3 06/16/20 24 025 Discontin ued(Reord er) Active Problems Problem [...] Encounters Date Type Department Care Team Description 06/14/2025 Results [facility] [address], [address] [place] [phone] Vane Lim APRN 06/08/2025 10:30 AM EDT Office Visit [facility] Medicine Specialties [address], [address] [place] [address] Vane Lim APRN Antiphospholipid antibody syndrome (CMS/HCC) (Primary Dx); Positive JOAN (antinuclear antibody); Psoriasis, unspecified; High risk medication use; Type 2 diabetes mellitus with other specified complication, without long-term current use of insulin; Stage 2 chronic kidney disease 06/08/2025 Travel 06/01/2025 12:40 PM EDT Office Visit [facility] Endocrinology [address] [place] [phone] Nkechi Celeste APRN Type 2 diabetes mellitus with other specified complication, unspecified whether roaster helper insulin use (CMS/HCC) (Primary Dx); Neuropathy; Hyperlipidemia, unspecified hyperlipidemia type; Obesity (BMI 30-39.9) 06/01/2025 Travel 04/19/2025 Refill [facility] Endocrinology [address] [place] [address] Nkechi Celeste APRN from Last [...] Description 09/14/2025 2:20 PM EST Office Visit [facility] Medicine Specialties [address], [address] [place] [phone] Vane Lim, ASSEMBLER SURGICAL GARMENT [address] [place] [phone] 09/21/2025 12:20 PM EST Office Visit [facility] Endocrinology [address] [place] [phone] Nkechi Celeste, ASSEMBLER SURGICAL GARMENT [address] [place] [phone] Health Maintenance Due Date Last Done Comments [...] PPSV23, PCV20, or PCV21) 09/02/2017 07/19/2017, 07/08/2017 [id number] Vaccine (3 - Moderna risk series) 01/29/2021 01/01/2021, 12/04/2020 Lung Cancer Screening Shared Decision Making 2022 [facility]Breast Cancer Screening 2022 03/23/2013 [facility]-Lung Cancer [...] of insulin Stage 2 chronic kidney disease DOUBLE-STRANDED DNA (DSDNA) ANTIBODY, IGG BY IFA (SO) Routine 06/08/2025 11:57 [...] of insulin Stage 2 chronic kidney disease CHAMBERS/SENIOR QUALITY ASSURANCE ENGINEER (RANDA) ANTIBODY, IGG (SO) Routine 06/08/2025 11:57 [...] mellitus with other specified complication, unspecified whether long-term insulin use (CMS/HCC) ACUTE HEPATITIS PANEL Routine [...] 06/08/2025 11:57 AM EDT us Vane Lim ASSEMBLER SURGICAL GARMENT LAB URINE ORDERABLES Final Result [facility] [address] [place] [address] * Chambers (RANDA) Antibody, IgG (06/08/2025 11:57 AM EDT) Pathologist Valentín Chambers (RANDA) Antibody, IgG 4 0 - 40 AU/mL 06/10/2025 3:57 PM EDT [facility] ([facility]EN) Serum 06/08/2025 11:5 7 AM EDT 06/08/2025 11:57 AM EDT Narrative [facility] ([facility]) - 06/10/2025 3:57 PM EDT INTERPRETIVE INFORMATION: [...] associations with SLE clinical manifestations. Performed By: [facility] [address] [place] [address] Public Welfare Worker: Chaz Marcelo MD, PhD CLIA Number: [id number] us Vane Lim ASSEMBLER SURGICAL GARMENT LAB REF LAB BLOOD AND FLUI D ORD Final Result [facility]) [address] [place] [address] * ENAII (06/08/2025 11:57 AM EDT) SSA-52 (RO52) (RANDA) Antibody, IgG 2 0 - 40 AU/mL 06/12/2025 10:00 AM EDT [facility] ([facility]) SSA-60 (RO60) (RANDA) Antibody, IgG 1 0 - 40 AU/mL 06/12/2025 10:00 AM EDT [facility] ([facility]) SSB (LA) (RANDA) Antibody, IgG 1 0 - 40 AU/mL 06/12/2025 10:00 AM EDT [facility] ([facility]) Blood Venous blood specimen / Unknown Venipuncture / Unknown 06/08/2025 11:57 AM EDT 06/08/2025 11:57 AM EDT Narrative [facility] ([facility]) - 06/12/2025 10:00 AM EDT INTERPRETIVE INFORMATION: [...] (PSS) also have this antibody. Performed By: [facility] [address] [place], [place] [id number] Public Welfare Worker: Chaz Marcelo MD, PhD CLIA Number: [id number] Vane Lim ASSEMBLER SURGICAL GARMENT LAB BLOOD ORDERABLES Final Result [facility] ([facility]) [address] [place] [address] * ENAI (06/08/2025 11:57 AM EDT) Chambers/SENIOR QUALITY ASSURANCE ENGINEER (RANDA) Ab, IgG 4 0 - 19 Units 06/12/2025 10:59 PM EDT [facility] ([facility]) Blood Venous blood specimen / Unknown Venipuncture / Unknown 06/08/2025 11:57 AM EDT 06/08/2025 11:57 AM EDT Narrative [facility]) - 06/12/2025 10:59 PM EDT INTERPRETIVE INFORMATION: Chambers/SENIOR QUALITY ASSURANCE ENGINEER (RANDA) Antibody, IgG 19 Units or Less ............. Negative 20 to 39 Units ............... Weak Positive 40 to 80 Units ............... Moderate Positive 81 Units or greater .......... Strong Positive Chambers/SENIOR QUALITY ASSURANCE ENGINEER antibodies are frequently seen in patients with mixed connective tissue disease (MCTD) and are also associated with other systemic autoimmune rheumatic diseases (SARDs) such as systemic lupus erythematosus (SLE), systemic sclerosis, and myositis. Antibodies targeting the Chambers/SENIOR QUALITY ASSURANCE ENGINEER antigenic complex also recognize Chambers antigens, therefore, the Chambers antibody response must be considered when interpreting these results. Performed By: [facility] [address] [place] [id number] Public Welfare Worker: Chaz Marcelo MD, PhD CLIA Number: [id number] Vane Lim APRN LAB BLOOD ORDERABLES Final Result Performing Organization Address City/[facility]/ZIP Co de Phone Number [facility]) [address] [place] [address] * Thyroid Peroxidase Antibody (06/08/2025 11:57 AM EDT) [facility] Thyroid Peroxidase Antibody <5 <=8 IU/mL 06/08/2025 4:18 PM EDT [facility] Blood Venous blood specimen / Unknown Venipuncture / Unknown 06/08/2025 11:57 AM EDT 06/08/2025 11:57 AM EDT Vane Lim APRN LAB BLOOD ORDERABLES Final Result [facility] [address] [place] [address] * Double-Stranded DNA (dsDNA) Antibody, IgG by IFA (06/08/2025 11:57 AM EDT) Double-Strande d DNA (dsDNA) Ab IgG IFA <1:10 <1:10 06/14/2025 12:26 AM EDT [facility] (JAIDEN) Blood Venous blood specimen / Unknown Venipuncture / Unknown 06/08/2025 11:57 AM EDT 06/08/2025 11:57 AM EDT Narrative [facility]) - 06/14/2025 12:26 AM EDT INTERPRETIVE [...] recommendations for testing may be found at [email or web address]. Performed By: [facility] [address] [place] [address] Public Welfare Worker: Chaz Marcelo MD, PhD CLIA Number: [id number] Vane Lim ASSEMBLER SURGICAL GARMENT LAB BLOOD ORDERABLES Final Result [facility]) [address] [place] [address] * Protein, Random, Urine with Creatinine (06/08/2025 11:57 AM EDT) Pathologist [facility] Protein, Urine 14 mg/dL 06/08/2025 1:51 PM EDT [facility] Creatinine, Urine 138 mg/dL 06/08/2025 1:51 PM EDT [facility] Protein/Creatin ine Ratio 0.1 mg/mg Creat 06/08/2025 1:51 PM EDT [facility] Urine Urine specimen obtained by clean catch procedure / Unknown Non-blood Collection / Unknown 06/08/2025 11:57 AM EDT 06/08/2025 11:57 AM EDT Vane Lim APRN LAB URINE ORDERABLES Final Result Performing Organization Address [facility] Co de Phone Number [facility] [address] [place] [address] * Creatinine, Plasma (06/08/2025 11:57 AM EDT) Creatinine, Plasma 0.76 0.60 - 1.10 mg/dL 06/08/2025 2:08 PM EDT [facility] eGFRcr 94.4 mL/min/1.7 3m*2 06/08/2025 2:08 PM EDT [facility] Comment:Reported eGFRcr in m L/min/1.73m2 is based the CKD-EPI 2020 equation that does not use a race coefficient. Blood Venous blood specimen / Unknown Venipuncture / Unknown 06/08/2025 11:57 AM EDT 06/08/2025 11:57 AM EDT Vane Lim APRN LAB BLOOD ORDERABLES Final Result Performing Organization Address [facility] de Phone Number [facility] [address] [place] [address] * (ABNORMAL) Urinalysis with reflex microscopic (Culture NOT Included) (06/08/2025 11:57 AM EDT) Color, Urine Yellow LAB URINALYSIS - AUTOMATED METHOD 06/08/2025 1:43 PM EDT [facility] Clarity, Urine Clear LAB URINALYSIS - AUTOMATED METHOD 06/08/2025 1:43 PM EDT [facility] Spec [place], Urine 1.030 1.005 - 1.030 LAB URINALYSIS - AUTOMATED METHOD 06/08/2025 1:43 PM EDT [facility] pH, Urine 5.5 5.0 - 8.0 LAB URINALYSIS - AUTOMATED METHOD 06/08/2025 1:43 PM EDT [facility] Protein, Urine Negative Negative mg/dL LAB URINALYSIS - AUTOMATED METHOD 06/08/2025 1:43 PM EDT [facility] Glucose, Urine 500(A) Negative mg/dL LAB URINALYSIS - AUTOMATED METHOD 06/08/2025 1:43 PM EDT [facility] Ketones, Urine Trace(A) Negative mg/dL LAB URINALYSIS - AUTOMATED METHOD 06/08/2025 1:43 PM EDT [facility] Blood, Urine Negative Negative LAB URINALYSIS - AUTOMATED METHOD 06/08/2025 1:43 PM EDT [facility] Bilirubin, Urine Negative Negative LAB URINALYSIS - AUTOMATED METHOD 06/08/2025 1:43 PM EDT [facility] Urobilinogen, Urine 0.2 0.2 to 1.0 mg/dL LAB URINALYSIS - AUTOMATED METHOD 06/08/2025 1:43 PM EDT [facility] Leukocytes, Urine Small(A) Negative LAB URINALYSIS - AUTOMATED METHOD 06/08/2025 1:43 PM EDT [facility] Nitrite, Urine Negative Negative LAB URINALYSIS - AUTOMATED METHOD 06/08/2025 1:43 PM EDT [facility] RBC, Urine 1 0 to 3 /HPF LAB URINALYSIS - AUTOMATED METHOD 06/08/2025 1:43 PM EDT [facility] WBC, Urine 0 - 5 0 to 5 /HPF LAB URINALYSIS - AUTOMATED METHOD 06/08/2025 1:43 PM EDT [facility] Squamous Epithelial Cells 3 - 5 0 to 5 /HPF LAB URINALYSIS - AUTOMATED METHOD 06/08/2025 1:43 PM EDT [facility] Hyaline Casts 0 - 2 0 to 5 /LPF LAB URINALYSIS - AUTOMATED METHOD 06/08/2025 1:43 PM EDT [facility] Bacteria, Urine Present Negative LAB URINALYSIS - AUTOMATED METHOD 06/08/2025 1:43 PM EDT [facility] Urine Urine specimen obtained by clean catch procedure / Unknown Non-blood Collection / Unknown 06/08/2025 11:57 AM EDT 06/08/2025 11:57 AM EDT us Vane M Lim ASSEMBLER SURGICAL GARMENT LAB URINE ORDERABLES Final Result [facility] [address] [place] [address] * (ABNORMAL) CBC and Differential (06/08/2025 11:57 AM EDT) WBC Count 5.97 3.70 - 10.30 10*3/uL LAB HEMATOLOGY METHOD 06/08/2025 1:57 PM EDT [facility] RBC Count 5.21(H) 3.90 - 5.20 10*6/uL LAB HEMATOLOGY METHOD 06/08/2025 1:57 PM EDT [facility] HGB 13.7 11.2 - 15.7 g/dL LAB HEMATOLOGY METHOD 06/08/2025 1:57 PM EDT [facility] HCT 42.9 34.0 - 45.0 % LAB HEMATOLOGY METHOD 06/08/2025 1:57 PM EDT [facility] Platelet Count 174 155 - 369 10*3/uL LAB HEMATOLOGY METHOD 06/08/2025 1:57 PM EDT [facility] MCV 82 79 - 98 fL LAB HEMATOLOGY METHOD 06/08/2025 1:57 PM EDT [facility] MCH 26.3 26.0 - 32.0 pg LAB HEMATOLOGY METHOD 06/08/2025 1:57 PM EDT [facility] MCHC 31.9 30.7 - 35.5 g/dL LAB HEMATOLOGY METHOD 06/08/2025 1:57 PM EDT [facility] RDW 15.4(H) 11.5 - 14.5 % LAB HEMATOLOGY METHOD 06/08/2025 1:57 PM EDT [facility] MPV 10.6 8.8 - 12.5 fL LAB HEMATOLOGY METHOD 06/08/2025 1:57 PM EDT [facility] nRBC 0.0 <=0.0 per 100 WBCs LAB HEMATOLOGY METHOD 06/08/2025 1:57 PM EDT [facility] Differential Type Automated LAB HEMATOLOGY METHOD 06/08/2025 1:57 PM EDT [facility] Neutrophils % 57 % LAB HEMATOLOGY METHOD 06/08/2025 1:57 PM EDT [facility] Lymphocytes % 31 % LAB HEMATOLOGY METHOD 06/08/2025 1:57 PM EDT [facility] Monocytes % 6 % LAB HEMATOLOGY METHOD 06/08/2025 1:57 PM EDT [facility] Eosinophils % 3 % LAB HEMATOLOGY METHOD 06/08/2025 1:57 PM EDT [facility] Basophils % 2 % LAB HEMATOLOGY METHOD 06/08/2025 1:57 PM EDT [facility] Immature Granulocytes % 1 % LAB HEMATOLOGY METHOD 06/08/2025 1:57 PM EDT [facility] Neutrophils Absolute 3.46 1.60 - 6.10 10*3/uL LAB HEMATOLOGY METHOD 06/08/2025 1:57 PM EDT [facility] Lymphocytes Absolute 1.84 1.20 - 3.90 10*3/uL LAB HEMATOLOGY METHOD 06/08/2025 1:57 PM EDT [facility] Monocytes Absolute 0.35 0.30 - 0.90 10*3/uL LAB HEMATOLOGY METHOD 06/08/2025 1:57 PM EDT [facility] Eosinophils Absolute 0.19 0.00 - 0.50 10*3/uL LAB HEMATOLOGY METHOD 06/08/2025 1:57 PM EDT [facility] Basophils Absolute 0.09 0.00 - 0.10 10*3/uL LAB HEMATOLOGY METHOD 06/08/2025 1:57 PM EDT [facility] Immature Granulocytes Absolute 0.04 0.00 - 0.06 10*3/uL LAB HEMATOLOGY METHOD 06/08/2025 1:57 PM EDT [facility] Blood Venous blood specimen / Unknown Venipuncture / Unknown 06/08/2025 11:57 AM EDT 06/08/2025 11:57 AM EDT Narrative [facility] - 06/08/2025 1:57 PM EDT Therapeutic decision making should be based on absolute values, rather than percentages. us Vane Lim ASSEMBLER SURGICAL GARMENT LAB BLOOD ORDERABLES Final Result [facility] [address] [place] [address] * C3 Complement (06/08/2025 11:57 AM EDT) C3 Complement 126 84 - 166 mg/dL 06/08/2025 3:33 PM EDT [facility] Blood Venous blood specimen / Unknown Venipuncture / Unknown 06/08/2025 11:57 AM EDT 06/08/2025 11:57 AM EDT Vane Qureshi Raphael ASSEMBLER SURGICAL GARMENT LAB BLOOD ORDERABLES Final Result Performing Organization Address [facility]/ZIP Co de Phone Number [facility] [address] [place] [address] * C4 Complement (06/08/2025 11:57 AM EDT) C4 Complement 15 13 - 36 mg/dL 06/08/2025 3:33 PM EDT [facility] Blood Venous blood specimen / Unknown Venipuncture / Unknown 06/08/2025 11:57 AM EDT 06/08/2025 11:57 AM EDT Vane Lim APRN LAB BLOOD ORDERABLES Final Result Performing Organization Address [facility] [place] [address] * Antinuclear Antibody (JOAN), HEp-2, IgG (06/08/2025 11:57 AM EDT) JOAN INTERPRETIVE COMMENT See Note 06/12/2025 2:44 PM EDT [facility] ([facility]) Anti Nuc Ab Screen <1:80 <1:80 06/12/2025 2:44 PM EDT [facility]) Blood Venous blood specimen / Unknown Venipuncture / Unknown 06/08/2025 11:57 AM EDT 06/08/2025 11:57 AM EDT Narrative [facility] ([facility]) - 06/12/2025 2:44 PM EDT Clinical Interpretation: [...] not necessarily rule out SARD. Performed By: [facility] [address] [place] [address] Public Welfare Worker: Chaz Marcelo MD, PhD CLIA Number: [id number] Vane Lim ASSEMBLER SURGICAL GARMENT LAB BLOOD ORDERABLES Final Result [facility] ([facility]) [address] [place] [address] * (ABNORMAL) Hepatic Function Panel (06/08/2025 11:57 AM EDT) Direct Bilirubin, Plasma <0.2 <=0.3 mg/dL 06/08/2025 2:08 PM EDT [facility] Alkaline Phosphatase, Plasma 105(H) 35 - 104 U/L 06/08/2025 2:08 PM EDT [facility] Total Bilirubin, Plasma 0.4 0.2 - 1.1 mg/dL 06/08/2025 2:08 PM EDT [facility] Albumin, Plasma 4.2 3.5 - 5.2 g/dL 06/08/2025 2:08 PM EDT [facility] Total Protein 7.4 6.3 - 7.9 g/dL 06/08/2025 2:08 PM EDT [facility] ALT, Plasma 39(H) 10 - 35 U/L 06/08/2025 2:08 PM EDT [facility] AST, Plasma 38(H) 10 - 35 U/L 06/08/2025 2:08 PM EDT [facility] Blood Venous blood specimen / Unknown Venipuncture / Unknown 06/08/2025 11:57 AM EDT 06/08/2025 11:57 AM EDT Vane Lim APRN LAB BLOOD ORDERABLES Final Result Performing Organization Address City/[facility]/ZIP Co de Phone Number [facility] [address] [place] [address] * POCT glycosylated hemoglobin (Hb A1C) (06/01/2025 12:47 PM EDT) [facility] POCT Hemoglobin A1C 6.8 <5.7% Non-Diabet ic % [facility] Kit Lot Number [id number] [facility] Kit Expiration Date 04/2027 [facility] Blood Venous blood specimen / Unknown 06/01/2025 12:47 PM EDT Nkechi Celeste APRN POINT OF CARE TEST ENTER /EDIT ORDERABLES Final Result Performing Organization Address [facility] Co de Phone Number [facility] [address] [place] [address] * Acute Hepatitis Panel (12/21/2023 11:06 AM EDT) [facility] Hepatitis B Surf Antigen Negative Negative 12/21/2023 2:38 PM EDT [facility] Hepatitis C Antibody Negative Negative 12/21/2023 2:38 PM EDT [facility] Hepatitis A Antibody IgM Negative Negative 12/21/2023 2:38 PM EDT [facility] Hepatitis B Core Antibody IgM Negative Negative 12/21/2023 2:38 PM EDT [facility] Blood Venous blood specimen / Unknown Venipuncture / Unknown 12/21/2023 11:06 AM EDT 12/21/2023 11:07 AM EDT Vane M Lim ASSEMBLER SURGICAL GARMENT LAB BLOOD ORDERABLES Final Result [facility] [address] [place] [address] from Last 3 Months or Most Recently Relevant to Health Maintenance Insurance ANTHEM Care Teams Interpreter Translator Relationship Specialty Start Date End Date Alissa Faria APRN [address] [place] [address] PCP - General 04/17/24
--- OUTSIDE RECORDS SUMMARY | 2025-07-03 10:03 | XMS_ITS | Encounter Summary ---
Author Organization [facility] Address [address] [place] [address] Care Team Providers Care Bag Mender Name Role Phone Alissa Faria APRN Primary Care Provider [phone] Encounter Details Date Type Department Care Team [...] Visit [place] [facility] Specialties [address] [place] [address] Vane Lim, PAID SEARCH MARKETING ANALYST [address] [place] [address] 09/21/2025 12:20 PM EST Office Visit [facility] Endocrinology [address] [place] [phone] Nkechi Celeste, PAID SEARCH MARKETING ANALYST [address] [facility] [address] [place] [address] documented as of this encounter Visit Diagnoses [...] documented as of this encounter Care Teams Bag Mender Relationship Specialty Start Date End Date Alissa Faria APRN [address] [place] [address] PCP - General 04/17/24 documented as of this encounter
--- OUTSIDE RECORDS SUMMARY | 2025-07-03 10:03 | XMS_ITS | Encounter Summary ---
Author Organization [facility] [place] [address] Care Team Providers Care Roofer Helper Vinyl Coating Name Role Phone Amy Ervin MD Unavailable [phone] Anshul Stephen MD Primary Care Provider [phone] Luis Daniel Silvestre MD Unavailable [phone] Encounter Details Date Type Department Care Team (Late st Contact Info) Description 06/15/2017 Orders Only [facility] Ed[facility] [address] [facility] [address] [place] [address] Luis Daniel Silvestre MD [address] [place] [address] Social History Tobacco Use Types [...] Silvestre MD CARDIAC CATH ORDERABLES Final Result [facility] [address] [place] [address] documented in this encounter Visit Diagnoses Not on filedocumented in this encounter Care Teams Roofer Helper Vinyl Coating Relationship Specialty Start Date End Date Anshul Stephen MD [address] [place] [address] PCP - General Emergency Medicine 05/20/17 Amy Ervin MD [address] [place] [address] [place] [address] Consulting Physician Internal Medicine - Clinical Cardiac Electrophysiology 05/20/17 07/25/17 Luis Daniel Silvestre MD [address] [place] [address] Consulting Physician Internal Medicine - Clinical Cardiac Electrophysiology 07/26/17 documented as of this encounter
--- OUTSIDE RECORDS SUMMARY | 2025-07-03 10:03 | XMS_ITS | Clinical Summary ---
Author Organization [facility] Address [address] [place] [address] Care Team Providers Care Police Chief Name Role Phone Leann Wilks APRN Primary Care Provider [phone] Social History Tobacco Use Types Packs/Day Years [...] Pneumococcal Vaccine 50+ (2 of 2 - PPSV23, PCV20, or PCV21) 09/02/2017 07/19/2017, 07/08/2017 ZOSTER VACCINE (1 of 2) 2022 INFLUENZA VACCINE 04/06/2025 07/19/2017 HEPATITIS C SCREENING Completed 12/21/2023 HEMOGLOBIN A1C Discontinued 06/01/2025, 02/05, 10/13/2024, Additional history exists Insurance [id number] [address] MEDICAID PENDING on file Care Teams Police Chief Relationship Specialty Start Date End Date Leann Wilks APRN [address] [facility] [address] [place] [address] PCP - General Nurse Practitioner 08/12/20
--- OUTSIDE RECORDS SUMMARY | 2025-07-03 10:03 | XMS_ITS | Encounter Summary ---
Author Organization Healthcare Address [address] [place] [address] Care Team Providers Care China Painter Name Role Phone Alissa Faria WILTON Primary Care Provider [phone] Encounter Details Date Type Department Care Team [...] Visit [facility] [address] [place] [address] Vane Lim APRN [address] [place] [address] 09/21/2025 12:20 PM EST [facility] [address] [place] [id number] Nkechi Celeste, PEANUT PICKER [address] [facility] [address] [place] [address] documented as of this encounter Visit Diagnoses Not on filedocumented in this encounter Additional Health Concerns Assessment Noted Time A fall risk assessment has been complete d for the patient 06/09/2024 10:35 AM EDT A Body Mass Index follow-up plan has been documented for the patient 06/01/2025 2:51 PM EDT documented as of this encounter Care Teams China Painter Relationship Specialty Start Date End Date Alissa Faria APRN [address] [place] [address] PCP - General 04/17/24 documented as of this encounter
--- OUTSIDE RECORDS SUMMARY | 2025-07-03 10:04 | XMS_ITS | Data Portability ---
Author Organization [facility] MARÍA ELENA IssaS IVESDALE CLOSED Address [address] [place] [address] Care Team Providers Care Adaptive Physical Educator Name Role Phone PETEY MIRANDA Primary Care Provider DMITRY AMBRIZ High Scaler Unavailable Assessment Encounter Date Assessment Date Assessment LastModified by Organization Details LastModified Time 07/10/2019 07/10/2019 PREOPERATIVE DIAGNOSIS: Urge incontinence. POSTOPERATIVE DIAGNOSIS: Urge incontinence. PROCEDURE: Stage I and stage II InterStim. OPERATIVE NOTE: After the induction of general anesthesia, patient was placed in the prone position. She was prepped and draped in the usual sterile fashion. Landmarks were identified. Needle was passed through the patient's left S3 foramen. Testing was performed and good toe and emy response were obtained. X-ray was used to confirm proper positioning. Guide was placed through the needle and needle was removed. Introducer was inserted over the guide and x-ray confirmed good position in the S3 foramen. The stylet was removed. The lead was then deployed. Testing was performed and good responses were obtained. The introducer was removed. 1% Xylocaine was injected in the patient's upper right buttocks region. 15 scalpel was used to make an incision to create the generator pocket. Farrah clamp was used to create a larger pocket. Tunneling device was then used to pass the electrode from the insertion site into the generator pocket. The electrode was then connected to the generator. Generator was placed within the pocket. Testing was performed and good responses were obtained. The inner lining of the pocket was closed using running suture of 3-0 Vicryl. The skin was closed using a running suture of 4-0 Monocryl. The needle insertion site was closed with [id number] suture of 4-0 monocryl. Dressings were applied. Patient tolerated the procedure well, left the operating room in satisfactory condition. [id number] Not available 07/11/2019 03:13:58 Plan of Treatment Reminders Order Date Submit Date Provider Last Modified By Organization Details Last Modified Time Details Appointments None recorded. Lab urinalysis panel, auto 2021 022 [facility], [address], [address], [place], [address], 14:55:13 urinalysis, dipstick, auto 2018 019 [facility], [address], [address], [place], [address], 9 15:31:24 urinalysis, dipstick, auto 2018 019 [facility], [address], [address], [place], [address], 9 17:12:55 Referral None recorded. Procedures None recorded. Surgeries interstim continence control therapy, permanent (SURG) 2018 [email or web address] [facility], [address] [facility], [facility] [address], [place], [address], 9 15:02:52 Imaging None recorded. Medication Orders Percocet 5 mg-325 mg tablet 2018 Magalie cartagena [facility], [address], [id number], 9 15:02:06 cefadroxil 500 mg capsule 2018 mitzi Castrothiana [facility], [address] [address] [address], [place], [id number], 9 15:02:02 Patient TargetsNo targets recorded. Patient Instructions Encounter Date Encounter Id Patient Instructions Last Modified By Organization Details Last Modified Time 09/05/2018 [id number] Urge Incontinence: Care Instructions celenaadley Not available 09/07/2018 10:27:33 06/08/2019 [id number] Urge Incontinence: Care Instructions fhadley Not available 06/08/2019 17:12:55 07/25/2019 [id number] learning about healthy weight fhadley Not available 07/25/2019 15:31:24 Urge Incontinence: [facility] Not available 07/25/2019 15:31:24 Reason for Referral None Reported. Results Created Date Observation Date Name Description Value Unit Range Abnormal Flag Note LastModifiedBy Organization Detail LastModifiedTime 07/25/2007/25/2019 urina lysis , dipst ick, auto Unknown Analyte Yellow Not Available [facility] [address], [address], 07/25/2019 15:02:40 07/25/20 19 07/25/2019 urina lysis , dipst ick, auto Unknown Analyte Clear Not Available [facility] [address], [address], 07/25/2019 15:02:40 07/25/2007/25/2019 urina lysis , dipst ick, auto Unknown Analyte 1.015 Not Available [facility] [address], [address], 07/25/2019 15:02:40 07/25/20 19 07/25/2019 urina lysis , dipst ick, auto Unknown Analyte 1.003 - 1.035 Not Available [facility] [address], [place], [address], 07/25/2019 15:02:40 07/25/20 19 07/25/2019 urina lysis , dipst ick, auto Unknown Analyte 5.0 Not Available [facility] [address], [place], [address], 07/25/2019 15:02:40 07/25/2007/25/2019 urina lysis , dipst ick, auto Unknown Analyte 5.0 - 8.0 Not Available [facility] [address], [place], [address], 07/25/2019 15:02:40 07/25/20 19 07/25/2019 urina lysis , dipst ick, auto Unknown Analyte Negati ve Not Available [facility] [address], [place], [address], 07/25/2019 15:02:40 07/25/20 19 07/25/2019 urina lysis , dipst ick, auto Unknown Analyte Negati ve Not Available [facility] [address] [facility] [address], [place], [address], 07/25/2019 15:02:40 07/25/2007/25/2019 urina lysis , dipst ick, auto Unknown Analyte Negati ve Not Available [facility] [address], [place], [address], 07/25/2019 15:02:40 07/25/2007/25/2019 urina lysis , dipst ick, auto Unknown Analyte Negati ve Not Available [facility] [address], [place], [address], 07/25/2019 15:02:40 07/25/20 19 07/25/2019 urina lysis , dipst ick, auto Unknown Analyte Negtiv e Not Available [facility] [address], [place], [address], 07/25/2019 15:02:40 07/25/2007/25/2019 urina lysis , dipst ick, auto Unknown Analyte Negati ve - Trace Not Available [facility] [address], [place], [address], 07/25/2019 15:02:40 07/25/20 19 07/25/2019 urina lysis , dipst ick, auto Unknown Analyte Normal Not Available [facility] [address], [place], [address], 07/25/2019 15:02:40 07/25/20 19 07/25/2019 urina lysis , dipst ick, auto Unknown Analyte Normal Not Available [facility] [address], [place], [address], 07/25/2019 15:02:40 07/25/2007/25/2019 urina lysis , dipst ick, auto Unknown Analyte Negati ve Not Available [facility] [address], [place], [address], 07/25/2019 15:02:40 07/25/2007/25/2019 urina lysis , dipst ick, auto Unknown Analyte Negati ve Not Available [facility] [address], [place], [address], 07/25/2019 15:02:40 07/25/2007/25/2019 urina lysis , dipst ick, auto Unknown Analyte Normal Not Available [facility] [address], [place], [address], 07/25/2019 15:02:40 07/25/2007/25/2019 urina lysis , dipst ick, auto Unknown Analyte Normal - 1mg/dl Not Available [facility] [address], [place], [address], 07/25/2019 15:02:40 07/25/2007/25/2019 urina lysis , dipst ick, auto Unknown Analyte Negati ve Not Available [facility] [address], [place], [address], 07/25/2019 15:02:40 07/25/2007/25/2019 urina lysis , dipst ick, auto Unknown Analyte Negati ve Not Available [facility] [address], [place], [address], 07/25/2019 15:02:40 07/25/2007/25/2019 urina lysis , dipst ick, auto Unknown Analyte Negati ve Not Available [facility] [address], [place], [address], 07/25/2019 15:02:40 07/25/2007/25/2019 urina lysis , dipst ick, auto Unknown Analyte Negati ve Not Available [facility] [address], [place], [address], 07/25/2019 15:02:40 07/25/20 19 07/25/2019 urina lysis , dipst ick, auto Unknown Analyte Clean Catch Not Available [facility] [address] [facility] [address], [place], [address], 07/25/2019 15:02:40 07/25/2007/25/2019 urina lysis , dipst ick, auto Unknown Analyte Automa román Not Available [facility] [address] [facility] [address], [place], [address], 07/25/2019 15:02:40 06/08/2006/08/2019 urina lysis , dipst ick, auto Unknown Analyte Yellow Not Available [facility] [address] [facility] [address], [place], [address], 06/08/2019 14:26:55 06/08/2006/08/2019 urina lysis , dipst ick, auto Unknown Analyte Clear Not Available [facility] [address] [facility] [address], [place], [address], 06/08/2019 14:26:55 06/08/2006/08/2019 urina lysis , dipst ick, auto Unknown Analyte 1.020 Not Available [facility] [address] [facility] [address], [place], [address], 06/08/2019 14:26:55 06/08/2006/08/2019 urina lysis , dipst ick, auto Unknown Analyte 1.003 - 1.035 Not Available [facility] [address] [facility] [address], [place], [address], 06/08/2019 14:26:55 06/08/2006/08/2019 urina lysis , dipst ick, auto Unknown Analyte 5.0 Not Available [facility] [address] [facility] [address], [place], [address], 06/08/2019 14:26:55 06/08/2006/08/2019 urina lysis , dipst ick, auto Unknown Analyte 5.0 - 8.0 Not Available [facility] [address] [facility] [address], [place], [address], 06/08/2019 14:26:55 06/08/2006/08/2019 urina lysis , dipst ick, auto Unknown Analyte Negati ve Not Available [facility] [address] [place] [address] [address], [place], [address], 06/08/2019 14:26:55 06/08/2006/08/2019 urina lysis , dipst ick, auto Unknown Analyte Negati ve Not Available [facility] [address] [facility] [address], [place], [address], 06/08/2019 14:26:55 06/08/2006/08/2019 urina lysis , dipst ick, auto Unknown Analyte Negati ve Not Available [facility] [address] [facility] [address], [place], [address], 06/08/2019 14:26:55 06/08/2006/08/2019 urina lysis , dipst ick, auto Unknown Analyte Negati ve Not Available [facility] [address], [place], [address], 06/08/2019 14:26:55 06/08/2006/08/2019 urina lysis , dipst ick, auto Unknown Analyte Trace Not Available [facility] [address] [facility] [address], [place], [address], 06/08/2019 14:26:55 06/08/2006/08/2019 urina lysis , dipst ick, auto Unknown Analyte Negati ve - Trace Not Available [facility] [address] [facility] [address], [place], [address], 06/08/2019 14:26:55 06/08/2006/08/2019 urina lysis , dipst ick, auto Unknown Analyte Normal Not Available [facility] [address] [place] [address] [address], [place], [address], 06/08/2019 14:26:55 06/08/2006/08/2019 urina lysis , dipst ick, auto Unknown Analyte Normal Not Available [facility] [address] [place] [address] [address], [place], [address], 06/08/2019 14:26:55 06/08/2006/08/2019 urina lysis , dipst ick, auto Unknown Analyte Negati ve Not Available [facility] [address], [place], [address], 06/08/2019 14:26:55 06/08/2006/08/2019 urina lysis , dipst ick, auto Unknown Analyte Negati ve Not Available [facility] [address] [facility] [address], [place], [address], 06/08/2019 14:26:55 06/08/2006/08/2019 urina lysis , dipst ick, auto Unknown Analyte Normal Not Available [facility] [address] [facility] [address], [place], [address], 06/08/2019 14:26:55 06/08/2006/08/2019 urina lysis , dipst ick, auto Unknown Analyte Normal - 1mg/dl Not Available [facility] [address] [facility] [address], [place], [address], 06/08/2019 14:26:55 06/08/2006/08/2019 urina lysis , dipst ick, auto Unknown Analyte Negati ve Not Available [facility] [address] [facility] [address], [place], [address], 06/08/2019 14:26:55 06/08/2006/08/2019 urina lysis , dipst ick, auto Unknown Analyte Negati ve Not Available [facility] [address] [facility] [address], [place], [address], 06/08/2019 14:26:55 06/08/2006/08/2019 urina lysis , dipst ick, auto Unknown Analyte Negati ve Not Available [facility] [address] [place] [address] [address], [place], [address], 06/08/2019 14:26:55 06/08/2006/08/2019 urina lysis , dipst ick, auto Unknown Analyte Negati ve Not Available [facility] [address], [place], [address], 06/08/2019 14:26:55 06/08/20 19 06/08/2019 urina lysis , dipst ick, auto Unknown Analyte Clean Catch Not Available [facility] [address], [place], [address], 06/08/2019 14:26:55 06/08/2006/08/2019 urina lysis , dipst ick, auto Unknown Analyte Automa román Not Available [facility] [address] [facility] [address], [place], [address], 06/08/2019 14:26:55 08/17/20 18 08/17/2018 urina lysis , dipst ick, auto Unknown Analyte Straw Not Available [facility] [address], [place], [address], 08/17/2018 09:52:16 08/17/20 18 08/17/2018 urina lysis , dipst ick, auto Unknown Analyte Clear Not Available [facility] [address] [place] [address] [address], [place], [address], 08/17/2018 09:52:16 08/17/20 18 08/17/2018 urina lysis , dipst ick, auto Unknown Analyte 1.010 Not Available [facility] [address], [place], [address], 08/17/2018 09:52:16 08/17/20 18 08/17/2018 urina lysis , dipst ick, auto Unknown Analyte 1.003 - 1.035 Not Available [facility] [address], [place], [address], 08/17/2018 09:52:16 08/17/20 18 08/17/2018 urina lysis , dipst ick, auto Unknown Analyte 5.0 Not Available [facility] [address], [place], [address], 08/17/2018 09:52:16 08/17/20 18 08/17/2018 urina lysis , dipst ick, auto Unknown Analyte 5.0 - 8.0 Not Available [facility] [address], [place], [address], 08/17/2018 09:52:16 08/17/20 18 08/17/2018 urina lysis , dipst ick, auto Unknown Analyte Negati ve Not Available [facility] [address], [place], [address], 08/17/2018 09:52:16 08/17/20 18 08/17/2018 urina lysis , dipst ick, auto Unknown Analyte Negati ve Not Available [facility] [address], [place], [address], 08/17/2018 09:52:16 08/17/20 18 08/17/2018 urina lysis , dipst ick, auto Unknown Analyte Negati ve Not Available [facility] [address], [place], [address], 08/17/2018 09:52:16 08/17/20 18 08/17/2018 urina lysis , dipst ick, auto Unknown Analyte Negati ve Not Available [facility] [address], [place], [address], 08/17/2018 09:52:16 08/17/20 18 08/17/2018 urina lysis , dipst ick, auto Unknown Analyte Negtiv e Not Available [facility] [address], [place], [address], 08/17/2018 09:52:16 08/17/20 18 08/17/2018 urina lysis , dipst ick, auto Unknown Analyte Negati ve - Trace Not Available [facility] [address], [place], [address], 08/17/2018 09:52:16 08/17/20 18 08/17/2018 urina lysis , dipst ick, auto Unknown Analyte 250 mg/dl Not Available [facility] [address], [place], [address], 08/17/2018 09:52:16 08/17/20 18 08/17/2018 urina lysis , dipst ick, auto Unknown Analyte Normal Not Available [facility] [address], [place], [address], 08/17/2018 09:52:16 08/17/20 18 08/17/2018 urina lysis , dipst ick, auto Unknown Analyte Negati ve Not Available [facility] [address], [place], [address], 08/17/2018 09:52:16 08/17/20 18 08/17/2018 urina lysis , dipst ick, auto Unknown Analyte Negati ve Not Available [facility] [address], [place], [address], 08/17/2018 09:52:16 08/17/20 18 08/17/2018 urina lysis , dipst ick, auto Unknown Analyte Normal Not Available [facility] [address], [place], [address], 08/17/2018 09:52:16 08/17/20 18 08/17/2018 urina lysis , dipst ick, auto Unknown Analyte Normal - 1mg/dl Not Available [facility] [address], [place], [address], 08/17/2018 09:52:16 08/17/20 18 08/17/2018 urina lysis , dipst ick, auto Unknown Analyte Negati ve Not Available [facility] [address], [place], [address], 08/17/2018 09:52:16 08/17/20 18 08/17/2018 urina lysis , dipst ick, auto Unknown Analyte Negati ve Not Available [facility] [address], [place], [address], 08/17/2018 09:52:16 08/17/20 18 08/17/2018 urina lysis , dipst ick, auto Unknown Analyte Negati ve Not Available [facility] [address], [place], [address], 08/17/2018 09:52:16 08/17/20 18 08/17/2018 urina lysis , dipst ick, auto Unknown Analyte Negati ve Not Available [facility] [address], [place], [address], 08/17/2018 09:52:16 08/17/20 18 08/17/2018 urina lysis , dipst ick, auto Unknown Analyte Clean Catch Not Available [facility] [address], [place], [address], 08/17/2018 09:52:16 08/17/20 18 08/17/2018 urina lysis , dipst ick, auto Unknown Analyte Automa román Not Available [facility] [address], [place], [address], 08/17/2018 09:52:16 08/12/20 18 08/12/2018 urina lysis , dipst ick, auto Unknown Analyte Yellow Not Available [facility] [address], [place], [address], 08/12/2018 13:34:52 08/12/20 18 08/12/2018 urina lysis , dipst ick, auto Unknown Analyte Clear Not Available [facility] [address], [place], [address], 08/12/2018 13:34:52 08/12/20 18 08/12/2018 urina lysis , dipst ick, auto Unknown Analyte 1.010 Not Available [facility] [address], [place], [address], 08/12/2018 13:34:52 08/12/20 18 08/12/2018 urina lysis , dipst ick, auto Unknown Analyte 1.003 - 1.035 Not Available [facility] [address], [place], [address], 08/12/2018 13:34:52 08/12/20 18 08/12/2018 urina lysis , dipst ick, auto Unknown Analyte 5.0 Not Available [facility] [address], [place], [address], 08/12/2018 13:34:52 08/12/20 18 08/12/2018 urina lysis , dipst ick, auto Unknown Analyte 5.0 - 8.0 Not Available [facility] [address], [place], [address], 08/12/2018 13:34:52 08/12/20 18 08/12/2018 urina lysis , dipst ick, auto Unknown Analyte 25 Kristal/ul Trace Not Available [facility] [address] [place] [address] [address], [place], [address], 08/12/2018 13:34:52 08/12/20 18 08/12/2018 urina lysis , dipst ick, auto Unknown Analyte Negati ve Not Available [facility] [address] [place] [address] [address], [place], [address], 08/12/2018 13:34:52 08/12/20 18 08/12/2018 urina lysis , dipst ick, auto Unknown Analyte Negati ve Not Available [facility] [address], [place], [address], 08/12/2018 13:34:52 08/12/20 18 08/12/2018 urina lysis , dipst ick, auto Unknown Analyte Negati ve Not Available [facility] [address], [place], [address], 08/12/2018 13:34:52 08/12/20 18 08/12/2018 urina lysis , dipst ick, auto Unknown Analyte Negtiv e Not Available [facility] [address], [place], [address], 08/12/2018 13:34:52 08/12/20 18 08/12/2018 urina lysis , dipst ick, auto Unknown Analyte Negati ve - Trace Not Available [facility] [address], [place], [address], 08/12/2018 13:34:52 08/12/20 18 08/12/2018 urina lysis , dipst ick, auto Unknown Analyte Normal Not Available [facility] [address], [place], [address], 08/12/2018 13:34:52 08/12/20 18 08/12/2018 urina lysis , dipst ick, auto Unknown Analyte Normal Not Available [facility] [address], [place], [address], 08/12/2018 13:34:52 08/12/20 18 08/12/2018 urina lysis , dipst ick, auto Unknown Analyte Negati ve Not Available [facility] [address], [place], [address], 08/12/2018 13:34:52 08/12/20 18 08/12/2018 urina lysis , dipst ick, auto Unknown Analyte Negati ve Not Available [facility] [address], [place], [address], 08/12/2018 13:34:52 08/12/20 18 08/12/2018 urina lysis , dipst ick, auto Unknown Analyte Normal Not Available [facility] [address], [place], [address], 08/12/2018 13:34:52 08/12/20 18 08/12/2018 urina lysis , dipst ick, auto Unknown Analyte Normal - 1mg/dl Not Available [facility] [address], [place], [address], 08/12/2018 13:34:52 08/12/20 18 08/12/2018 urina lysis , dipst ick, auto Unknown Analyte Negati ve Not Available [facility] [address], [place], [address], 08/12/2018 13:34:52 08/12/20 18 08/12/2018 urina lysis , dipst ick, auto Unknown Analyte Negati ve Not Available [facility] [address], [place], [address], 08/12/2018 13:34:52 08/12/20 18 08/12/2018 urina lysis , dipst ick, auto Unknown Analyte Negati ve Not Available [facility] [address], [place], [address], 08/12/2018 13:34:52 08/12/20 18 08/12/2018 urina lysis , dipst ick, auto Unknown Analyte Negati ve Not Available [facility] [address], [place], [address], 08/12/2018 13:34:52 08/12/20 18 08/12/2018 urina lysis , dipst ick, auto Unknown Analyte Clean Catch Not Available [facility] [address], [place], [address], 08/12/2018 13:34:52 08/12/20 18 08/12/2018 urina lysis , dipst ick, auto Unknown Analyte Automa román Not Available [facility] [address], [place], [address], 08/12/2018 13:34:52 12/13/19 22 12/12/2021 urina lysis panel , auto Unknown Analyte Clean Catch Not Available [facility] [address], [place], [address], 12/12/2021 14:27:59 12/13/19 22 12/12/2021 urina lysis panel , auto Unknown Analyte Yellow Not Available [facility] [address], [place], [address], 12/12/2021 14:27:59 12/13/19 22 12/12/2021 urina lysis panel , auto Unknown Analyte Clear Not Available [facility] [address], [place], [address], 12/12/2021 14:27:59 12/13/19 22 12/12/2021 urina lysis panel , auto Unknown Analyte 1.010 Not Available [facility] [address], [place], [address], 12/12/2021 14:27:59 12/13/19 22 12/12/2021 urina lysis panel , auto Unknown Analyte 1.003- 1.035 Not Available [facility] [address], [place], [address], 12/12/2021 14:27:59 12/13/19 22 12/12/2021 urina lysis panel , auto Unknown Analyte 6.0 Not Available [facility] [address], [place], [address], 12/12/2021 14:27:59 12/13/19 22 12/12/2021 urina lysis panel , auto Unknown Analyte 5.0-8. 0 Not Available [facility] [address], [place], [address], 12/12/2021 14:27:59 12/13/19 22 12/12/2021 urina lysis panel , auto Unknown Analyte Negati ve Not Available [facility] [address], [place], [address], 12/12/2021 14:27:59 12/13/19 22 12/12/2021 urina lysis panel , auto Unknown Analyte Negati ve Not Available [facility] [address], [place], [address], 12/12/2021 14:27:59 12/13/19 22 12/12/2021 urina lysis panel , auto Unknown Analyte Negati ve Not Available [facility] [address], [place], [address], 12/12/2021 14:27:59 12/13/19 22 12/12/2021 urina lysis panel , auto Unknown Analyte Negati ve Not Available [facility] [address], [place], [address], 12/12/2021 14:27:59 12/13/19 22 12/12/2021 urina lysis panel , auto Unknown Analyte Negati ve Not Available [facility] [address], [place], [address], 12/12/2021 14:27:59 12/13/19 22 12/12/2021 urina lysis panel , auto Unknown Analyte Negati ve Not Available [facility] [address], [place], [address], 12/12/2021 14:27:59 12/13/19 22 12/12/2021 urina lysis panel , auto Unknown Analyte >1000 mg/dl Not Available [facility] [address], [place], [address], 12/12/2021 14:27:59 12/13/19 22 12/12/2021 urina lysis panel , auto Unknown Analyte Normal Not Available [facility] [address], [place], [address], 12/12/2021 14:27:59 12/13/19 22 12/12/2021 urina lysis panel , auto Unknown Analyte Negati ve Not Available [facility] [address], [place], [address], 12/12/2021 14:27:59 12/13/19 22 12/12/2021 urina lysis panel , auto Unknown Analyte Negati ve Not Available [facility] [address], [place], [address], 12/12/2021 14:27:59 12/13/19 22 12/12/2021 urina lysis panel , auto Unknown Analyte Normal Not Available [facility] [address], [place], [address], 12/12/2021 14:27:59 12/13/19 22 12/12/2021 urina lysis panel , auto Unknown Analyte Normal 1 mg/dl Not Available [facility] [address], [place], [address], 12/12/2021 14:27:59 12/13/19 22 12/12/2021 urina lysis panel , auto Unknown Analyte Negati ve Not Available [facility] [address], [place], [address], 12/12/2021 14:27:59 12/13/19 22 12/12/2021 urina lysis panel , auto Unknown Analyte Negati ve Not Available [facility] [address], [place], [address], 12/12/2021 14:27:59 12/13/19 22 12/12/2021 urina lysis panel , auto Unknown Analyte Negati ve Not Available [facility] [address], [place], [address], 12/12/2021 14:27:59 12/13/19 22 12/12/2021 urina lysis panel , auto Unknown Analyte Negati ve Not Available [facility] [address], [place], [address], 12/12/2021 14:27:59 Result Notes None recorded. Problems No Known Problems Procedures Surgical History Date Name Laterality Status Provider Name and Address Organization Details Recorded Time 018 PNE Implantation; Sacral Nerve completed Yennifer Velazco [facility] 08/19/2018 14:10:27 018 Uroflowmetry; Complex completed [facility] 08/12/2018 12:01:40 018 Urodynamics Interpretation completed [facility] 08/12/2018 12:01:43 018 Urodynamics completed [facility] 08/12/2018 12:06:22 Cholecystectomy completed [facility] 08/12/2018 13:31:59 Hysterectomy completed [facility] 08/12/2018 13:32:10 [facility] 08/12/[facility] 13:33:48 Imaging Results None recorded. Procedure Notes None recorded. Medical Equipment None Reported. Allergies No known drug allergies Medications Name Sig Start Date Stop Date Status Note LastModified by Organization Details LastModified Time Compound Topical Cream Arthrocre am Plus Reformula román (Ketamine 10% Ketoprofe n 10% Lidocaine 5% Bupivacai ne 2%) 1-2 grams. apply 3-4 times per day 06/08 completed Not Available Not Available Not Available promethaz ine-DM 6.25 mg-15 mg/5 mL oral syrup 06/08 completed Medicati on Descript ion: dextrome thorphan -prometh azine; Route:or al; refills: 0 Not Available Not Available Not Available Aleve 220 mg tablet Every eight hours 06/08 completed Duration : 1 day;Freq uency: q8h;Medi cation Descript ion: naproxen ; Route:or al; refills: 0; Quantity :3 tablet Not Available Not Available Not Available cefadroxi l 500 mg capsule Take 2 capsules every day by oral route. 07/25 completed Not Available Not Available Not Available zolpidem 10 mg tablet active Medicati on Descript ion: zolpidem ; Route:or al; refills: 0 Not Available Not Available Not Available Percocet 5 mg-325 mg tablet Take 1 tablet every 6 hours by oral route. 07/25 completed Not Available Not Available Not Available Cymbalta 20 mg capsule,d elayed release Take 1 capsule twice a day by oral route. active Not Available Not Available No t Available acetamino phen Every four to six hours 06/08 completed Duration : 10 days;Maxi quency: q4-q6h;M edicatio n Descript ion: acetamin ophen; Dosage:1 -2; refills: 0; Quantity :30 Not Available Not Available Not Available albuterol sulfate active Not Available Not Available Not Available Prilosec active Not Available Not Avai lable Not Available fiber active Not Available Not Availa ble Not Available Ambien active Not Available Not Availa ble Not Available Lantuss-F orte active Not Available Not Available Not Available Lyrica active Not Available Not Availa ble Not Available trospium ER 60 mg capsule,e xtended release 24 hr Take 1 capsule every day by oral route for 90 days. 2022 active Not Available Not Available Not Avai lable Flonase Allergy Relief active Not Available Not Available Not Available Ozempic active Not Available Not Avail able Not Available Gemtesa 75 mg tablet Take by oral route for 30 days. 2022 active Not Available Not Available Not Avai lable Vitals Date Recorded Body height Body mass index (BMI) Body weight Provider Name and Address Organization Details Last Updated DateTime 12/12/2021 165.1 cm 34.9 kg/m2 69708.4 g Juju Hart [facility] 12/12/2021 14:27:21 Date Recorded Body height Body mass index (BMI) Body weight Heart rate Systolic And Diastolic Provider Name and Address Organization Details Last Updated DateTime 06/08/2019 165.1 cm 34.9 kg/m2 94644.4 g 79 /min 127/84 mm[Hg] Yennifer Meyersford [facility] 9 14:25:15 Date Recorded Body height Body mass index (BMI) Body weight Heart rate Systolic And Diastolic Provider Name and Address Organization Details Last Updated DateTime 07/25/2019 165.1 cm 34.9 kg/m2 56110.4 g 79 /min 126/88 mm[Hg] Briana Thorpe [facility] 07/25/2019 15:01:56 Social History Question Answer Notes LastModified by Organizat ion Details LastModified Time Tobacco Smoking Status [facility] 09:43:36 How Much Tobacco Do You Chew? None [email or web address] Information not available 06/08/2019 Marital Status Informatio n not available 08/12/2018 What Was The Date Of Your Most Recent Tobacco Screening? 08/19/2018 Information n ot available 10/24/2019 Sex: Unknown Functional Status Question Answer Note LastModified by Organization D etails LastModified Time What is your level of alcohol consumption? 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 Family History Relationship Description Onset Age of this Age Resolved Age Notes LastModified by Organization Details LastModified Time Father Arthritis [email or web address] Not availab le 01/11/2018 09:44:04 Father Kidney disease [email or web address] Not available 2017 09:44:13 Mother Hypertensive disorder [email or web address] Not available 2017 09:44:30 Medical History Condition Response Gout N Other N COPD N Pneumonia N Arthritis N Blood Clot N Stroke N Kidney Disease N Heart Conditions Y Migraines N Skin Problems N Rheumatic Fever N Bleeding Disorder N Tuberculosis N Genetic Disorder N AIDS/HIV N Asthma Y Anxiety/Depression N Thyroid Disease Y Hernia N Glaucoma N Anesthesia Complications N Blood Thinners N Alcohol Overuse/Alcohol Abuse N High Cholesterol N Liver Disease N Allergies/Hayfever Y Immune System Disorder N Heart Attack (NE) N Mental Illness N Neurological Problems N Diabetes Y Seizures/Epilepsy N Sleep Apnea Y Hypertension N Osteoporosis N Gynecological HistoryNo gynecological history recorded. Obstetrics History GPAL:G 0 P 0 0 0 0 Past Encounters Encounter ID Performer Location Encounter Start Date Encounter Closed Date Diagnosis/Indication Diagnosis SNOMED-CT Code Diagnosis ICD10 Code Diagnosis IMO Codes Diagnosis Note [id number] ARACELI FREGOSO MD [facility] [address] [place] [address] 01/11/2018 09:24:25 01/11/2018 12:56:20 Pain in left knee 2807134064 94011 M25.562 Knee pain 41023739 M25.5 62 [id number] ARACELI FREGOSO MD [facility] [address] [place] [address] 02/15/2018 10:05:26 02/15/2018 12:58:12 Contusion of left knee 6760742119 [id number] S80.02XD [id number] MD MADDY [facility] [address] [place] [address],[place] [address] 08/12/2018 10:12:32 08/12/2018 11:05:45 Urinary incontinence 464012279 R32 Patient demonstrat es bladder instabilit y with uninhibite d contractio ns stimulated throughout the filling phase with Valsalva. At capacity she demonstrat ed uninhibite d contractio ns with incontinen ce. She also demonstrat ed stress incontinen ce at capacity. [id number] MD [facility] [address] [facility] [place] [address] 08/12/2018 10:18:32 08/12/2018 13:53:18 Urge incontinence of urine 77005809 N39.41 As above Female uri nary stress incontinence 71421900 N39.3 As above [id number] JOMAR RAGSDALE MD [facility] [address] [place] [address] RD,[address] [place] [address] 08/17/2018 09:25:04 08/17/2018 10:24:18 Urge incontinence of urine 49264773 N39.41 Urgent nan chloé to urinate 15308849 R39.15 [id number] JOMAR RAGSDALE MD [facility] [address] [place] [address] RD,[place] [address] 08/19/2018 09:35:58 08/19/2018 10:59:30 Urge incontinence of urine [id number] N39.41 [id number] JOMAR RAGSDALE MD [facility] [address] [place] [address] RD,[place] [address] 08/23/2018 15:38:43 08/23/2018 16:47:38 Urge incontinence of urine 80491603 N39.41 [id number] JOMAR RAGSDALE MD SURGERY SCHEDULE [address] [place] [address] 09/05/2018 08:01:21 09/05/2018 08:02:27 Urge incontinence of urine 92625508 N39.41 [id number] MD [facility]ADDY [facility] [address] [place] [address] RD,[place] [address] 0 06/08/2019 13:28:42 06/08/2019 14:36:11 Urge incontinence of urine 77784227 N39.41 Nocturia 824864345 R35.1 [id number] JOMAR RAGSDALE MD SURGERY SCHEDULE [address] [place] [address] 1 07/10/2019 06:24:04 07/10/2019 06:25:04 Urgent desire to urinate 09583718 R39.15 [id number] JOMAR RAGSDALE MD [facility] [address] [place] [address] RD,[place] [address] 0 07/25/2019 14:23:37 07/25/2019 15:10:30 Urge incontinence of urine 91691734 N39.41 [id number] JOMAR RAGSDALE MD [facility] [address] [place] [address] 12/12/2021 13:50:33 12/12/2021 14:42:57 Abdominal pain 37731463 R10.9 Urgent nan chloé to urinate 65604254 R39.15 Health Concerns Section Related Observation LastModified by Organization Detai ls LastModified Time None Recorded Concern Status LastModified by Organization Details LastModified Time None Recorded Advance Directives Directive None Recorded Payers Insurance Date Sequence Insurance Name Policy Number Policy Britton Covered Member ID Britton Member ID Guarantor Name 01/11/2018 [facility] Manisha Leija 07/31/2020 1 [facility] [id number] Riley Leija [id number] Manisha Leija 12/08/2021 [employer]GENI[employer]SMED (MOVED TO HOLD) Manisha Leija 12/12/2021 1 [place] [id number] Riley Leija [id number] Manisha Leija 12/16/2021 1 [facility] [id number] Manisha Leija [id number] Manisha Leija Notes Date Note Type Note Provider Name and Address Organization Details Recorded Time 09/05/2018 text/html procedure was canceled due to elevated blood sugar [facility]AR [facility] [place], [address], [facility] 09/07/2018 10:27:48 06/08/2019 text/html she has been seen previously for problems with urge incontinence. She was scheduled for InterStim placement following the successful PNE. The procedure was canceled due to very high blood sugar. Her diabetes is under much better control now she would like to proceed with the InterStim therapy. She is having nocturia 3-4 times at night. She has urgency with urge incontinence 5-6 times per day. While she had the temporary leads placed the urge incontinence only happened once during a three-day.. The nocturia was 0-1 time at night [place], [address], [facility] 06/08/2019 17:12:58 07/25/2019 text/html she is back following the InterStim placement. The incisions are healing without any sign of infection. She is not having any urge incontinence. There is no significant frequency. She is very pleased with the improvement JOMAR RAGSDALE MD [address] [place], [address], [facility] 07/25/2019 15:31:36 12/12/2021 text/html she has an InterStim placed. Everything was going well until a few weeks ago. She is now been having a stabbing pain that shoots from her bladder out to the urethra. This is just periodic. There is no flank pain. There is no hematuria or dysuria. Prior to the onset of the pain she was having some increase in urgency. Sometimes she feels the urgency and other times she feels like she can't empty her bladder. She has not changed the InterStim programming.. Her urine is clear. We will add 75 mg Gemtesa and arrange reprogramming with the [employer] customer loyalty representative. She continues to have difficulty we will cystoscope JOMAR RAGSDALE MD [address] [place], [address], [facility] 12/12/2021 14:55:46 OBGyn Episode No OBEpisode recorded.
--- OUTSIDE RECORDS SUMMARY | 2025-07-03 10:04 | XMS_ITS | Encounter Summary ---
Author Organization Healthcare Address [address] [place] [address] Care Team Providers Care Pickle Cutter Name Role Phone Alissa Faria WILTON Primary Care Provider [phone] Encounter Details Date Type Department Care Team (Late st Contact Info) Description 06/14/2025 Results [facility] [address] [place] [address] Vane Lim APRN [address] [place] [address] Social History Tobacco Use Types Packs/Day Years [...] as of this encounter Miscellaneous Notes * Result Encounter Note - Vane Lim APRN - 06/14/2025 9:17 AM EDT Hi, I wanted to reach out about your lab work. Your labs showed slightly elevated liver function levels, but improved since your previous lab work. Also, high levels of glucose was found in your urine, but you currently take Jardiance, which is excreted through your urine and common to find elevated gulose levels. Otherwise, your lab work was relatively normal. We will proceed with the Aspirin 325 mg daily. We will closely monitor your kidney function while on this medication. If you have any questions or concerns, please feel free to reach out. documented in this encounter Plan of Treatment Upcoming Encounters Date Type Department Care Team (Late st Contact Info) Description 09/14/2025 2:20 PM EST Office Visit [facility] Medicine Specialties [address] [place] [address] Vane Lim APRN [address] [place] [id number] 09/21/2025 12:20 PM EST Office [facility] [address] [place] [address] Nkechi Celeste APRN [address] [facility] [address] [place] [address] documented as of this encounter [...] documented as of this encounter Care Teams Pickle Cutter Relationship Specialty Start Date End Date Alissa Faria APRN [address] [place] [address] PCP - General 04/17/24 documented as of this encounter
--- OUTSIDE RECORDS SUMMARY | 2025-07-03 10:04 | XMS_ITS | Clinical Summary ---
Author Organization [facility] Address [address] [place] [address] Phone Care Team Providers Care Leather Production Worker Name Role Phone Anshul Stephen MD Primary Care Provider [phone] Luis Daniel Silvestre MD Unavailable [phone] Allergies No known active allergies Medications VENTOLIN HFA 90 mcg/actuation Inhl HFA Aerosol Inhaler Inhale 2 Puffs into the lungs every 6 hours as needed. 04/28/2017 Active DULoxetine (CYMBALTA) 20 mg Oral Capsule, Delayed Release(E.C.) Take 20 mg by mouth daily. 04/28/2017 Active fluticasone (FLONASE) 50 mcg/actuation Nasl Union, Suspension 1 Union by Nasal route daily as needed. 04/28/2017 [...] of 2) 2022 COVID-19 Vaccine (1 - 2024-2 6 season) 2025 Influenza Vaccine (#1) 2025 8 [...] Impressions 03/24/2013 3:51 PM EDT : Negative ([id number]) ~ RECOMMENDATION: Routine screening mammogram in 1 [...] densities. No suspicious calcifications. ~ IMPRESSION: Negative ([id number]) ~ RECOMMENDATION: Routine screening mammogram in 1 [...] Radiologist and CAD. Nicholas Bains Sr., MD [facility] MAMMOGRAPHY SHAHZAD PHIPPS Final Result from Last 3 Months or Most Recently Relevant to Health Maintenance Insurance [facility] Member Subscriber Plan / Payer (Ef fective 2016-Present) Name:Manisha Desouza Relation to Subscriber:Spouse Name:RILEY DESOUZA Date of :1971 (Home) Address[address] [address] [facility] [address] Payer ID:[id number] (NAIC) Type:Not on file Address: [address] [place] [phone] [facility] * Guarantor: [employer] Account Type Relation to Patient Date of Phone Billing Address [employer] Employer 09/06/1948 [address] [place] [address] * Guarantor: [employer] [facility] Account Type Relation to Patient Date of Phone Billing Address [employer] Employer [address] [place] [address] Care Teams Leather Production Worker Relationship Specialty Start Date End Date Anshul Stephen MD [address] [facility] [address] [place] [address] PCP - General Emergency Medicine 05/20/17 Luis Daniel Silvestre MD [address] [place] [address] Consulting Physician Internal Medicine - Clinical Cardiac Electrophysiology 07/26/17
== END 2025-07-02 23:59 | disposition home or self-care (01) ==
LOC: LAB.DROPOF 07-03 09:46
PROVIDERS: PCP Urology; Visit Provider Urology
DX: N89.8 Other specified noninflammatory disorders of vagina (principal)
CPT/HCPCS: 87491; 87529; 87591; 87661; 87798; 87801

== ENCOUNTER 2025-07-13 11:12 | Outpatient (CLI) | payer BC, SELFPAY ==
--- OUTSIDE RECORDS SUMMARY | 2025-06-01 11:40 | XMS_ITS | Encounter Summary ---
Author Organization [facility] Address [address] [place] [address] Care Team Providers Care Certified Alcohol Drug Counselor Name Role Phone Gustavo Fariaica WILTON Primary Care Provider [phone] Reason for Referral * Medications - Closed Specialty Diagnoses / Procedures Referred By Tay chatterjee Referred To Contact Diagnoses Type 2 diabetes mellitus with other specified complication, unspecified whether nursing home insulin use Nkechi Celeste APRN [address] [address] Phone: tel: fax: Referral ID Status Reason Start Date Expiration Date Visits Re quested Visits Authorized [id number] Closed 1 1 * Medications - Closed Specialty Diagnoses / Procedures Referred By Tay chatterjee Referred To Contact Diagnoses Type 2 diabetes mellitus with other specified complication, unspecified whether oil heaterman insulin use Nkechi Celeste APRN [address] [address] Phone: tel: fax: Referral ID Status Reason Start Date Expiration Date Visits Re quested Visits Authorized [id number] Closed 1 1 * Medications - Closed Specialty Diagnoses / Procedures Referred By Tay chatterjee Referred To Contact Diagnoses Type 2 diabetes mellitus with other specified complication, unspecified whether nursing home insulin use Nkechi Celeste APRN [address] [address] Phone: tel: fax: Referral ID Status Reason Start Date Expiration Date Visits Re quested Visits Authorized [id number] Closed 1 1 * Consultation (Routine) - Authorized Specialty Diagnoses / Procedures Referred By Tay chatterjee Referred To Contact Diagnoses Type 2 diabetes mellitus with other specified complication, unspecified whether oil heaterman insulin use Nkechi Celeste APRN [address] [address] Phone: tel: fax: Referral ID Status Reason Start Date Expiration Date V isits Requested Visits Authorized [id number] Authorized 06/01/2025 12/01/2026 1 1 Reason for Visit * Reason Comments Diabetes * Consultation (Routine) - Closed Specialty Diagnoses / Procedures Referred By Tay chatterjee Referred To Contact Diagnoses Type 2 diabetes mellitus with other specified complication, unspecified whether nursing home insulin use Nkechi Celeste APRN [address] [address] Phone: tel: fax: Referral ID Status Reason Start Date Expiration Date Visits Re quested Visits Authorized [id number] Closed 03/02/2025 09/01/2026 1 1 Encounter Details Date Type Department Care Team (Late st Contact Info) Description 06/01/2025 12:40 PM EDT Office Visit [facility] [address] [place] [address] Nkechi Celeste APRN [address] [address] Type 2 diabetes mellitus with other specified complication, unspecified whether nursing home insulin use ([facility]) (Primary Dx); Neuropathy; Hyperlipidemia, unspecified hyperlipidemia type; Obesity (BMI 30-39.9) Social History Tobacco Use Types Packs/Day Years Used Date Smoking Tobacco: Former Cigarettes 1 21.8 1 989 - 07/07/2010 Passive Smoke Exposure: Current Smokeless Tobacco: Never Tobacco Cessation:Counseling Given: Not Answered Alcohol Use Standard Drinks/Week Comments Yes 3 (1 standard drink = 0.6 oz pur e alcohol) PHQ-2 Answer Date Recorded Patient Health Questionnaire-2 Score 0 06/09/2024 Comments No Sex and Gender Information Value Date Recorded Sex Assigned at Not on file Legal Sex Female 6:53 PM EDT Gender Identity Not on file Sexual Orientation Not on file documented as of this encounter Last Filed Vital Signs Vital Sign Reading Time Taken Comments Blood Pressure 120/85 06/01/2025 12:30 PM EDT Pulse 81 06/01/2025 12:30 PM EDT Temperature - - Respiratory Rate - - Oxygen Saturation - - Inhaled Oxygen Concentration - - Weight 93.1 kg (205 lb 4 oz) 06/01/2025 12:30 PM EDT Height 162.6 cm (5' 4 ) 06/01/2025 12:30 PM EDT Body Mass Index 35.23 06/01/2025 12:30 PM EDT documented in this encounter Miscellaneous Notes * Progress Notes - Nkechi Celeste APRN - 06/01/2025 12:40 PM EDT Images from the original note were not included. Subjective Manisha Leija is a 54 y.o. female who presents for a follow up evaluation of Diabetes Mellitis Type 2. Patient was diagnosed approximately 2017. Current symptoms/problems include hyperglycemia. Past medical history includes APLS, gastroparesis, fibromyalgia, CKD, polyarthralgia, hyperlipidemia,GERD. Diabetes POCT Hemoglobin A1C (%) Date/Time Value 06/01/2025 1247 6.8 03/02/2025 1222 8.0 Last visit on 03/07/2025. Mounjaro started at last visit. Had colonoscopy last week. Current treatment includes oral agents and insulin injections Lantus 70 units at bedtime Jardiance 25 mg daily - denies SE Glipizide 10 mg two times daily Mounjaro 5 mg weekly- denies SE, stopped one week ago due to colonoscopy Failed medications: Ozempic- gastroparesis; Metformin- GI side effects; OmniPod; Novolog; Tresiba Compliance at present is estimated to be good. Known diabetic complications: peripheral neuropathy and gastroparesis - patient denies history of gastroparesis, however states that EGD performed by GI in December showed delayed gastric emptying Cardiovascular risk factors: diabetes mellitus, dyslipidemia, and obesity (BMI >= 30 kg/m2) On KECIA or ARB: No On Statin: Yes Current diet: well balanced and on average, 2 meals per day Current exercise: walking works at [employer] CGM data review: Dexcom Dates: 05/15/2025-05/28/2025 Data: Average glucose 202 Time in Range: 43%, high 35%, very high 22%, low 0%, very low 0% Interpretation: Post prandial hyperglycemia contributing to overall hyperglycemia. Lows: Denies. History of DKA: Denies. Recent illness/steroid use: Denies. Date of Last Eye Exam: 03/2024 Date of Last Foot Exam: 2022 What current meter are you using?: One Touch What type of sensor do you have?: Dexcom G7 When was your last flu shot?: does not get When did you have labs last?: 04/2025 - denies sores/wounds; declines foot exam today Lab Review Creatinine, Plasma (mg/dL) Date Value 07/07/2024 0.99 12/21/2023 1.04 eGFRcr (mL/min/1.73m*2) Date Value 07/07/2024 68.7 12/21/2023 65.2 Thyroid Stimulating Hormone, Plasma (uIU/mL) Date Value 04/06/2017 2.05 03/25/2016 1.48 LDL, Calculated (mg/dL) Date Value 07/07/2024 59 Triglycerides, Plasma (mg/dL) Date Value 07/07/2024 291 (H) HDL (mg/dL) Date Value 07/07/2024 35 (L) Albumin/Creatinine Ratio (no units) Date Value 07/07/2024 Comment: Unable to calculate, at least one value is above or below the detection limit. AST, Plasma (U/L) Date Value 07/07/2024 51 (H) 12/21/2023 33 ALT, Plasma (U/L) Date Value 07/07/2024 43 (H) 12/21/2023 28 Alkaline Phosphatase, Plasma (U/L) Date Value 07/07/2024 151 (H) 12/21/2023 108 (H) No results found for: CPEPTIDE , IJS46LF , ZNT8A , NTIB The following portions of the chart were reviewed this encounter and updated as appropriate: Tobacco Allergies Meds Problems Med Hx Surg Hx Fam Hx Review of Systems Constitutional: Negative. HENT: Negative. Eyes: Negative. Respiratory: Negative. Cardiovascular: Negative. Gastrointestinal: Negative. Endocrine: See HPI Genitourinary: Negative. Musculoskeletal: Negative. Skin: Negative. Neurological: Negative. Psychiatric/Behavioral: Negative. Objective Physical Exam Vitals reviewed. Constitutional: Appearance: Normal appearance. She is obese. HENT: Head: Normocephalic and atraumatic. Eyes: Extraocular Movements: Extraocular movements intact. Pupils: Pupils are equal, round, and reactive to light. Cardiovascular: Rate and Rhythm: Normal rate. Pulmonary: Effort: Pulmonary effort is normal. Abdominal: General: Abdomen is flat. Musculoskeletal: General: Normal range of motion. Cervical back: Normal range of motion and neck supple. Skin: General: Skin is warm and dry. Neurological: General: No focal deficit present. Mental Status: She is alert and oriented to person, place, and time. Psychiatric: Mood and Affect: Mood normal. Behavior: Behavior normal. Thought Content: Thought content normal. Judgment: Judgment normal. Assessment/Plan Manisha was seen today for diabetes. Diagnoses and all orders for this visit: Type 2 diabetes mellitus with other specified complication, unspecified whether nursing home insulin use ([facility]) - POCT glycosylated hemoglobin (Hb A1C) - Follow Up [facility]; Future - tirzepatide (Mounjaro) 7.5 MG/0.5ML solution auto-injector solution pen- injector; Inject 0.5 mL under the skin 1 time per week. - glipiZIDE (Glucotrol) 10 MG tablet; Take 1 tablet by mouth daily before breakfast. - Continuous Glucose Transmitter (Dexcom G6 transmitter) [facility]; Use as instructed with Dexcom G6 sensor, change every 90 days - Continuous Glucose Sensor (Dexcom G6 Sensor) misc; 1 sensor every 10 days. - insulin glargine (Lantus SoloStar) 100 UNIT/ML injection pen; INJECT 40 UNITS SUBCUTANEOUSLY AT BEDTIME. TITRATE DIRECTED. MAX DAILY DOSE OF 75 UNITS Neuropathy Hyperlipidemia, unspecified hyperlipidemia type Obesity (BMI 30-39.9) Other orders - Follow Up [facility] Diabetes Mellitis Type 2, is controlled. Patient most interested in decreasing polypharmacy. Increase Mounjaro to 7.5 mg weekly. Advised to monitor for increase in nausea or vomiting. Advised to call clinic if symptoms develop. Patient denies known hx of pancreatitis, MEN 2, or medullary thyroid carcinoma. Risks discussed with patient. Patient verbalizes understanding of risks and would like to start medication. Educated on signs and symptoms of pancreatitis. Continue Lantus 70 units at bedtime. Decrease glipizide to 10 mg every morning before breakfast. Continue Jardiance 25 mg daily. Continue using CGM to test BG 4+ times daily to adjust insulin doses for MDI Labs- requested from primary care provider Encouraged yearly eye exam Discussed importance of lifestyle interventions for glycemic control (diet, exercise, weight reduction). Follow up: 3 months Neuropathy - recommend daily foot checks - reviewed with patient the impact that glycemic control has on neuropathy Hyperlipidemia - lipid panel requested from primary care provider - Continue on statin,pt reports compliance and no myalgias - Will continue to monitor cholesterol levels - Encouraged healthy lifestyle modifications->diet and exercise. Obesity - Body mass index is 35.23 kg/m??. - contributing to insulin resistance - The patient received dietary education because they have an above normal BMI., The patient received a feeding regime because they have an above normal BMI., The patient received exercise education because they have an above normal BMI., and Pharmacotherapy was ordered because the patient hasan above normal BMI. The following Diabetes education was reviewed: [x]SBGM to evaluate dose needs [x]Insulin coverage with carbohydrate intake [x]Site rotation [x] Exercise impact on glucose levels [x]Driving safety related to diabetes [x]Sick day management []Ketone testing []Over treatment of hypoglycemia [x] Hypoglycemia management [x]Call-in line use []Insulin pump pros and cons [x]Sensor home use []Pump class offerings []Nicole phenomena []Somogyi effect [] Alcohol related to diabetes []Benefits of written records []Pre-meal Bolusing [x]Daily foot care [x] Healthy diet and regular exercise [x]Long-term complications related to poor diabetes management [] Injection timing related to changes in activity/exercise I personally spent a total of 37 minutes on this encounter. This time includes face to face with patient, counseling and discussion and/or coordination of care. Electronically signed by: Nkechi Celeste APRN [facility] [address] [facility] [address] [place]. [address] PHONE [phone] FAX: [phone] documented in this encounter Plan of Treatment Upcoming Encounters Date Type Department Care Team (Late st Contact Info) Description 09/14/2025 2:20 PM EST Office Visit [facility] [address] [place] [address] Vane Lim APRN [address] [place] [address] 09/21/2025 12:20 PM EST Office [facility] [address] [place] [address] Nkechi Celeste APRN [address] [facility] [address] [place] [phone] Scheduled Referrals Name Type Priority Associated Diagnoses Orde r Schedule Follow Up [facility] Outpatient Referral Routine Type 2 diabetes mellitus with other specified complication, unspecified whether nursing home insulin use ([facility]) Expected: 08/31/2025, Expires: 12/03/2026 documented as of this encounter Procedures Procedure Name Priority Date/Time Associated Diagnosis Comments POCT GLYCOSYLATED HEMOGLOBIN (HGB A1C) Routine 06/01/2025 12:47 PM EDT Type 2 diabetes mellitus with other specified complication, unspecified whether nursing home insulin use ([facility]) documented in this encounter Results * POCT glycosylated hemoglobin (Hb A1C) (06/01/2025 12:47 PM EDT) POCT Hemoglobin A1C 6.8 <5.7% Non-Diabet ic % [facility] Kit Lot Number [id number] [facility] Kit Expiration Date 04/2027 [facility] Blood Venous blood specimen / Unknown 06/01/2025 12:47 PM EDT Nkechi Celeste CYTOLOGIST POINT OF CARE TEST ENTER /EDIT ORDERABLES Final Result [facility] [address] [place] [address] documented in this encounter Visit Diagnoses Diagnosis Type 2 diabetes mellitus with other specified complication, unspecified whether nursing home insulin use- Primary Neuropathy Mononeuritis of unspecified site Hyperlipidemia, unspecified hyperlipidemia type Obesity (BMI 30-39.9) documented in this encounter Additional Health Concerns Assessment Noted Time A fall risk assessment has been complete d for the patient 06/09/2024 10:35 AM EDT A Body Mass Index follow-up plan has been documented for the patient 06/01/2025 2:51 PM EDT documented as of this encounter Care Teams Certified Alcohol Drug Counselor Relationship Specialty Start Date End Date Alissa Faria APRN [address] [place] [address] PCP - General 04/17/24 documented as of this encounter
--- OUTSIDE RECORDS SUMMARY | 2025-06-08 09:30 | XMS_ITS | Encounter Summary ---
Author Organization [facility] Address [address] [place] [address] Care Team Providers Care Expenditure Requisition Clerk Name Role Phone Alissa Faria WILTON Primary Care Provider [phone] Reason for Visit * Reason Comments Antiphospholipid antibody syndrome (CMS/ HCC Encounter Details Date Type Department Care Team (Latest Contact Info) Description 06/08/2025 10:30 AM EDT Office Visit [facility] [address] [place] [address] Josefa Lim APRN [address] [place] [address] Antiphospholipid antibody syndrome (CMS/HCC) (Primary Dx); Positive JOAN (antinuclear antibody); Psoriasis, unspecified; High risk medication use; Type 2 diabetes mellitus with other specified complication, without long-term current use of insulin; Stage 2 chronic kidney disease Social History Tobacco Use Types Packs/Day Years Used Date Smoking Tobacco: Former Cigarettes 1 21.8 1 989 - 07/07/2010 Passive Smoke Exposure: Current Smokeless Tobacco: Never Alcohol Use Standard Drinks/Week Comments Yes 3 (1 standard drink = 0.6 oz pur e alcohol) PHQ-2 Answer Date Recorded Patient Health Questionnaire-2 Score 0 06/08/2025 PHQ-9 Answer Date Recorded Patient Health Questionnaire-9 Score 0 06/08/2025 Comments No Sex and Gender Information Value Date Recorded Sex Assigned at Not on file Legal Sex Female 6:53 PM EDT Gender Identity Not on file Sexual Orientation Not on file documented as of this encounter Last Filed Vital Signs Vital Sign Reading Time Taken Comments Blood Pressure 111/75 06/08/2025 10:43 AM EDT Pulse 73 06/08/2025 10:43 AM EDT Temperature 36.6 C (97.9 F) 06/08/2025 10:43 AM EDT Respiratory Rate 16 06/08/2025 10:4 3 AM EDT Oxygen Saturation 97% 06/08/2025 10: 43 AM EDT Inhaled Oxygen Concentration - - Weight 95.7 kg (210 lb 15.7 oz) 025 10:43 AM EDT Height 162.6 cm (5' 4 ) 06/08/2025 10:4 3 AM EDT Body Mass Index 36.21 06/08/2025 10:43 AM EDT documented in this encounter Functional Status * Over the past 2 weeks, how often have you been bothered by any of the following problems? Question Answer Date of Assessment Author Little interest or pleasure in doing things Not at all 06/08/2025 10:48 AM EDT Lang Schultz Feeling down, depressed, or hopeless Not at all 06/08/2025 10:48 AM EDT Lang Schultz Patient Health Questionnaire -2 Score 0 06/08/2025 10:48 AM EDT Lang Schultz * Question Answer Date of Assessment Author Trouble falling or staying a sleep, or sleeping too much Not at all 06/08/2025 10:48 AM EDT Lang Schultz Feeling tired or having saida le energy Not at all 06/08/2025 10:48 AM EDT Lang Schultz Poor appetite or overeating Not at all 06/08/2025 10 :48 AM EDT Lang Schultz Feeling bad about yourself - or that you are a failure or have let yourself or your family down Not at all 06/08/2025 10:48 AM EDT Lang Mckinnon Trouble concentrating on thi ngs, such as reading the newspaper or watching television Not at all 06/08/2025 10:48 AM EDT Lang Schultz Moving or speaking so slowly that other people could have noticed? Or the opposite - being so fidgety or restless that you have been moving around a lot more than usual. Not at all 06/08/2025 10:48 AM EDT Lang Schultz Thoughts that you would be b barbara off or hurting yourself in some way Not at all 06/08/2025 10:48 AM EDT Lang Schultz Patient Health Questionnaire -9 Score 0 06/08/2025 10:48 AM EDT Lang Schultz * How difficult have these problems made it for you to do your work, take care of things at home, or get along with other people? Answer Date of Assessment Author Not difficult at all 06/08/2025 10:48 AM EDT Lang Garcia documented as of this encounter Miscellaneous Notes * Addendum Note - Josefa Lim APRN - 06/08/2025 10:30 AM EDTAddended by: JOSEFA LIM on: 06/27/2025 11:28 AM Modules accepted: Orders * Progress Notes - Josefa Lim APRN - 06/08/2025 10:30 AM EDT Images from the original note were not included. Manisha Leija is a 54 y.o. female Chief complaint: here for follow up of Antiphospholipid antibody syndrome (CMS/HCC) Subjective HPI Manisha Leija is a 54 y.o. female with PMH significant for TFMS, depression, T2DM, HLD, GERD, migraine, neuropathy, obesity, sigmoid diverticulosis, who presents today for follow up of Antiphospholipid antibody syndrome (CMS/HCC) Past history: 12/21/23: The patient presents to the clinic for evaluation of a positive DsDNA, lupus anticoagulantPTT and ESR. The patient reports feeling fatigued, not wanting to do anything for the past several months. The patient reports feeling extremity restless at night and not getting good sleep. The patient also reports increased nausea and vomiting. The patient will be having a EGD in [place] by 12/23/23. The patient does not have a history of blood clots. The patient also reports that she has had increased pain and is constantly in pain. The patient was ruled out for MS years ago by [facility] d/t no lesions on the brain. The patient also a a kidney stimulator d/t urinary frequency/urgency + difficulty staying asleep. + difficulty falling asleep. + non-restorative sleep. + fatigue. + tight clothes are uncomfortable. + intermittent brain fog. Anxiety. Depression. Joints: Bilateral feet, knees (L>R), hips (does have deteriorating hips), cervical/lumbar spine pain, without stiffness or swelling. Patient reports all day stiffness and drawing. Activity does not make the pain better or worse. Rheumatological ROS positive for dry eyes, dry mouth, photosensitivity 2 years ago one time, CKD stage 3 Rest ROS negative for oral ulcers, nasal ulcers, alopecia, serositis, psoriasis, rash, Raynaud's symptoms or digit ulcerations, macroscopic hematuria, psychosis or delirium, thyroid disease, seizures, IBD, uveitis or episcleritis, blood clots or miscarriages. Family History: Father-RA, mother-lupus, sister-lupus Social History: No known exposure to HCV or HIV. No hx IV drug use. Hx of 1 PPD x 25 years tobacco use. Quit in 2011. No hx of alcohol abuse. No hx of TB. 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 he patient reports continued fatigue, joint pain and new onset tremors. The patient reports that left 3rd digit contracture occurringevery morning and sometimes throughout the day. The patient also reports heberden's nodes on left 4/5 and right 3/4 DIP. The patient reports continued diarrhea even with going off the Ozempic. The patient has not had colonoscopy. The patient reports when will be getting back in with GI once the doctor comes to [place]. The patient reports increased neuropathy in her feet and believes she had anEMG by Dr. Herrera. The patient thinks it is due to her T2DM since she has gone off the Ozempic and her HA1C has increased to 8.1. Interim history: Today (06/08/25): The patient presents to the clinic for a yearly follow up of Antiphospholipid antibody syndrome. The patient reports that she has not been taking the Aspirin since her last appointment. The patient reports that she forgot all about the medication and that is why she did not take. The patient reports that her current AIC is 6.7. She reports that she was taken off the Ozempic due to it possibly causing GI issues. She was placed back on it. She had a colonoscopy in 05/31 where hemorrhoids were ablated and polyps removed. The patient reports a right 4th DIP fluid filled cyst on top of the skin. The patient has seen orthopedics and she will eventually need a repla cement, but not at this time. Patient educated to inform any surgeon or when having a procedure to let them be aware of APS status. The patient was also diagnosed with PsO by [facility] afterher last appointment. She reports they started her on Skyrizi, which cleared up her PsO. Rheumatological ROS positive for dry eyes, dry mouth (improved), photosensitivity 2 years ago one time (could have been medication induced), CKD stage 3, psoriasis Rest ROS negative for oral ulcers, nasal ulcers, alopecia, serositis, psoriasis, rash, Raynaud's symptoms or digit ulcerations, macroscopic hematuria, psychosis or delirium, thyroid disease, seizures, IBD, uveitis or episcleritis, blood clots or miscarriages. Review of Systems Endocrine: Positive for heat intolerance. Musculoskeletal: Positive for arthralgias and back pain. Skin: Positive for rash. PsO All other systems reviewed and are negative. The following portions of the chart were reviewed this encounter and updated as appropriate: Past Medical History[1] Surgical History[2] Social History Socioeconomic History Marital status: Spouse name: Not on file Number of children: Not on file Years of education: Not on file Highest education level: Not on file Occupational History Not on file Tobacco Use Smoking status: Former Current packs/day: 0.00 Average packs/day: 1 pack/day for 21.8 years (21.8 ttl pk-yrs) Types: Cigarettes Start date: 1988 Quit date: 07/07/2010 Years since quittin.9 Passive exposure: Current Smokeless tobacco: Never Vaping Use Vaping status: Never Used Substance and Sexual Activity Alcohol use: Yes Alcohol/week: 3.0 standard drinks of alcohol Types: 3 Glasses of wine per week Drug use: Never Comment: Drug use: No drug use Sexual activity: Defer Other Topics Concern Not on file Social History Narrative Sexual History: Has a single partner Marital Status: Social Drivers of Health Financial Resource Strain: Not on file Food Insecurity: Not on file Transportation Needs: Not on file Physical Activity: Not on file Stress: Not on file Social Connections: Unknown (06/14/2023) Received from [facility] Family and Community Support Help with Day-to-Day Activities: Not on file Lonely or Isolated: Not on file Intimate Partner Violence: Unknown (06/14/2023) Received from [facility] Abuse Screen Unsafe at Home or Work/School: Not on file Feels Threatened by Someone?: Not on file Does Anyone Keep You from Contacting Others or Doint Things Outside the Home?: Not on file Physical Sign of Abuse Present: Not on file Housing Stability: Unknown (06/14/2023) Received from [facility] Housing Stability Current Living Arrangements: Not on file Potentially Unsafe Housing Conditions: Not on file Family History[3] Allergies[4] Current Medications[5] Objective Last visit labs: Office Visit on 06/01/2025 Component Date Value Ref Range Status POCT Hemoglobin A1C 06/01/2025 6.8 <5.7% Non-Diabetic % Final Kit Lot Number 06/01/2025 934 Final Kit Expiration Date 06/01/202504/2027 Final Vitals: 06/08/25 1043 BP: 111/75 Pulse: 73 Resp: 16 Temp: 36.6 ??C (97.9 ??F) SpO2: 97% Physical Exam Constitutional: Appearance: Normal appearance. HENT: Head: Normocephalic and atraumatic. Eyes: Conjunctiva/sclera: Conjunctivae normal. Cardiovascular: Rate and Rhythm: Normal rate and regular rhythm. Heart sounds: Normal heart sounds. Pulmonary: Effort: Pulmonary effort is normal. Breath sounds: Normal breath sounds. Musculoskeletal: General: Tenderness present. Comments: See Homunculus. No allodynia present. Tenderness noted in cervical spine, right 2nd PIP and right 3rd DIP. No synovitis or dactylitis noted on PE. full ROM noted on PE.heberden's nodes on left 4/5 and right 3/4 DIP. Skin: General: Skin is warm and dry. Comments: PsO in remission Neurological: Mental Status: She is alert and oriented to person, place, and time. Psychiatric: Mood and Affect: Mood normal. Behavior: Behavior normal. Thought Content: Thought content normal. Judgment: Judgment normal. Joint Exam 06/08/2025 Right Left PIP 2 (finger) Tender DIP 3 (finger) Tender Cervical Spine Tender 12/21/2023 02/08/2024 06/09/2024 06/08/2025 ENGLAND-28 (ESR) -- -- -- -- ENGLAND-28 (CRP) -- -- -- -- Tender (ENGLAND-28) 0 0 0 Swollen (ENGLAND-28) 0 0 0 0 Provider Global -- -- -- -- Patient Global -- -- -- -- ESR -- -- -- -- CRP -- -- -- -- Swollen Joint Count: Swollen: 0 Tender Joint Count: Tender: 3 Patient global assessment: /010 Rapid 3 score: 8.330 CDAI: Pt reports % improvement while on current medication Assessment/Plan Diagnosis Plan 1. Antiphospholipid antibody syndrome (CMS/HCC) CBC and Differential Creatinine, Plasma Hepatic Function Panel aspirin ([employer] Aspirin) 325 MG tablet Antinuclear Antibody (JOAN), HEp-2, IgG Double-Stranded DNA (dsDNA) Antibody, IgG by IFA C3 Complement C4 Complement ENAI ENAII Protein, Random, Urine with Creatinine Chambers (RANDA) Antibody, IgG Thyroid Peroxidase Antibody Creatinine, Random, Urine Urinalysis with reflex microscopic (Culture NOT Included) 2. Positive JOAN (antinuclear antibody) CBC and Differential Creatinine, Plasma Hepatic Function Panel aspirin ([employer] Aspirin) 325 MG tablet Antinuclear Antibody (JOAN), HEp-2, IgG Double-Stranded DNA (dsDNA) Antibody, IgG by IFA C3 Complement C4 Complement ENAI ENAII Protein, Random, Urine with Creatinine Chambers (RANDA) Antibody, IgG Thyroid Peroxidase Antibody Creatinine, Random, Urine Urinalysis with reflex microscopic (Culture NOT Included) 3. Psoriasis, unspecified CBC and Differential Creatinine, Plasma Hepatic Function Panel aspirin ([employer] Aspirin) 325 MG tablet Antinuclear Antibody (JOAN), HEp-2, IgG Double-Stranded DNA (dsDNA) Antibody, IgG by IFA C3 Complement C4 Complement ENAI ENAII Protein, Random, Urine with Creatinine Chambers (RANDA) Antibody, IgG Thyroid Peroxidase Antibody Creatinine, Random, Urine Urinalysis with reflex microscopic (Culture NOT Included) 4. High risk medication use CBC and Differential Creatinine, Plasma Hepatic Function Panel aspirin (Yaritza Aspirin) 325 MG tablet Antinuclear Antibody (JOAN), HEp-2, IgG Double-Stranded DNA (dsDNA) Antibody, IgG by IFA C3 Complement C4 Complement ENAI ENAII Protein, Random, Urine with Creatinine Chambers (RANDA) Antibody, IgG Thyroid Peroxidase Antibody Creatinine, Random, Urine Urinalysis with reflex microscopic (Culture NOT Included) 5. Type 2 diabetes mellitus with other specified complication, without long-term current use of insulin CBC and Differential Creatinine, Plasma Hepatic Function Panel aspirin (Yaritza Aspirin) 325 MG tablet Antinuclear Antibody (JOAN), HEp-2, IgG Double-Stranded DNA (dsDNA) Antibody, IgG by IFA C3 Complement C4 Complement ENAI ENAII Protein, Random, Urine with Creatinine Chambers (RANDA) Antibody, IgG Thyroid Peroxidase Antibody Creatinine, Random, Urine Urinalysis with reflex microscopic (Culture NOT Included) 6. Stage 2 chronic kidney disease CBC and Differential Creatinine, Plasma Hepatic Function Panel aspirin ([employer] Aspirin) 325 MG tablet Antinuclear Antibody (JOAN), HEp-2, IgG Double-Stranded DNA (dsDNA) Antibody, IgG by IFA C3 Complement C4 Complement ENAI ENAII Protein, Random, Urine with Creatinine Chambers (RANDA) Antibody, IgG Thyroid Peroxidase Antibody Creatinine, Random, Urine Urinalysis with reflex microscopic (Culture NOT Included) 1.APLS -lupus anticoagulant PTT 44.2 -No hx of miscarriage or blood clots -Triple seropositive Lupus anticoagulant detected on both LA-sensitive aPTT and dRVVT assays -Rx ASA 325 mg-Will prevent CVA/MT -Educated that on a long plane/car ride at high risk of stroke/MT (get up and moved every couple ofhours)-will not prevent DVT . Not on coumadin/Plavix d/t no hx of DVT/PE -Educated patient to tell all surgeons and when havingproceduresthat she has triple positive ab prophylactic Lovenox. When traveling patient will need to ambulate frequently and wear compression stocking -Patient did s=not start the ASA 325 mg daily. She report she forgot. Patient educated that she is at high risk for clot formation due to triple APS positive. Educated patient to start ASA. IF any ofthe following occur, recommend going to the ER:swelling/pain/redness in extrmety, SOB, H/a, CP, jawclaudication, pressure of chest, pain radiating down left arm, n/v. 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 No synovitis or dactylitis noted on PE. full ROM noted on PE.heberden's nodes on left 4/5 and right 3/4 DIP. -RF, CCP, CBC, Crea, hepatic panel, hepatitis negative -bilateral feet, knees and hips xrays-Mild degenerative changes of the bilateral hip. Normal evaluation of the bilateral knee. No significant abnormality of the bilateral foot. No findings of inflammatory arthropathy. -Rx diclofenac gel 4.Gastroparesis The patient had her EGD done in December, which showed gastroparesis. GI thought it was due to the Ozempic and has went off the medication. The patient has been off the medication in December and has not noticed a different with her vomiting. The patient received a sample of Reglan nose spray, which caused her nose to breakout. -Rx autoimmune liver labs 5.Fibromyalgia -Allodynia present on bilateral shoulders. + difficulty staying asleep. + difficulty falling asleep. + non-restorative sleep. + fatigue. + tight clothes are uncomfortable. + intermittent brain fog. Anxiety. Depression. -Patient is currently being treated by PCP with lyrica and Cymbalta -TSH, vitamin D at PCP WNL -TPO negative Suggestions for PCP regarding medications which may be tried for fibromyalgia: --Duloxetine (Cymbalta): start 20 to 30 mg in the morning with food. Titrate monthly to 60 mg/day or effect --Milnacipran (Savella): start 12.5 mg in the morning with food. Increase by 12.5 mg every 3 to 7 days to effect. Typical dose: 50 mg twice a day (doses of 100 mg BID have been described). --Pregabalin (Lyrica): start 50 mg with food before bed. After 1 week, increase to 50 mg BID and titrate dose to effect. Typical dose: 75 to 150 mg BID (max dose 225 mg BID). --Venlaxafine start at 37.5 mg in the morning with food and increase weekly to effect or max dose of 375 mg daily (typical dosin-150 mg BID). There is an extended release form that can be used once a day starting at 37.5 mg and titrated weekly to effect or max dose of 225 mg daily. --Amitriptyline at a dosage of 10 to 25 mg 1 to 3 hours prior to bedtime. This dose may be increased by 10 to 25 mg increments at 2-week intervals; the usual effective dose is 25 to 100 mg daily. --Cyclobenzaprine 5 to 10 mg at bedtime, max daily dose of 30 mg. --Gabapentin start at 100 to 300 mg QHS. If 300 mg QHS is tolerated, a morning dose can be added and titrated to effect. Typical dosin to 600 mg TID (maximum dose 1200 mg TID). 6.Numbness and Tingling -Patient endorses numbness and tingling of bilateral feet and hands -EMG test previously performed several years ago, but does not know results -Hx of T2DM with a AIC of 6.2 -UA glucose >1000 -Recommend seeing neurology Dr. Herrera -Rx endocrinology 7.CKD Stage 3 -Patient diagnosed 5 years ago and is currently seeing Dr. Motley at [facility] -Crea 1.10, GFR 52--current 06/08/25 GFR 94.4, Crea 0.76 8.Chronic cervical/lumbar spine pain -Patient with a history of chronic neck and lumbar spine pain -Cervical and lumbar xrays-Mild degenerative disc changes from C3-C4 through C6-C7. Moderate degenerative disc changes at L3-L4 through L5-S1. 9.Hx of fatty Liver Dx 10.Hx of CTS 11.Psoriasis The patient was also diagnosed with PsO by [facility] after her last appointment. She reports they started her on Skyrizi, which cleared up her PsO. -Currently on Skyrizi every 12 weeks 12.High Risk Medication use -HBV, HCV negative 12/28 -CBC, Crea, hepatic panel (reviewed 06/14/25-ALT/AST slightly elevated. GFR 94, will proceed with ASA with caution) RTC 3 months Today, I personally spent 43 minutes on the encounter, including chart review, patient education, counseling, and coordination of care as described above. Issues discussed: Diagnosis and implicationson future health, effects and side effects of present and future potential medications, test results as well as further testing and medications required as applicable. .hr The patient was counseled about diagnostic results, instruction for management, risk factors reduction, prognosis, compliance with visits and treatment, risks and benefits of treatments options. Prior notes (by external physicians) and results were reviewed by me with independent interpretation of labs and imaging. My note will be sent to PCP and other consulting physicians. [1] Past Medical History: Diagnosis Date Chronic kidney disease CTS (carpal tunnel syndrome) Diabetes mellitus Fibromyalgia, primary Low back pain Personal history of pneumonia (recurrent) History of pneumonia Pure hypercholesterolemia, unspecified High cholesterol [2] Past Surgical History: Procedure Laterality Date BLADDER SURGERY N/A Bladder Surgery from [facility] GALLBLADDER SURGERY N/A Anastomosis Of Gallbladder from [facility] HYSTERECTOMY N/A Hysterectomy from [facility] OTHER SURGICAL HISTORY N/A Exploratory Laparoscopy from [facility] WISDOM TOOTH EXTRACTION N/A Oral Surgery Tooth Extraction [place] Tooth from [facility] [3] Family History Problem Relation Name Age of Onset Stroke Other Diabetes Other Hypertension Other Other cancer Other Multiple sclerosis Maternal Cousin Rheum arthritis Father Conrad [place] Diabetes Father Conrad [place] Autoimmune disease Father Conrad [place] rhuematoid arthritis Kidney disease Mother jessica de paz kidney disease Asthma Maternal Grandmother jessica stark Autoimmune disease Maternal Grandmother jessica stark asthma Autoimmune disease Paternal Grandmother Pamela [place] cancer Autoimmune disease Father's Brother Warren [place] cancer [4] Allergies Allergen Reactions Metformin Nausea and Diarrhea [5] Current Outpatient Medications Medication Sig Dispense Refill albuterol 108 (90 Base) MCG/ACT inhaler ARIPiprazole (Abilify) 10 MG tablet aspirin ([employer]za Aspirin) 325 MG tablet Take 1 tablet by mouth daily. 90 tablet 3 azelastine (Astelin) 0.1 % nasal spray Blood Glucose Monitoring Suppl (Blood Glucose Monitor System) w/Device kit Test 2 times each day, Dx E11.9 1 kit 0 buPROPion XL (Wellbutrin XL) 300 MG 24 hr tablet cholecalciferol (Vitamin D-3) 1.25 MG (80537 UT) capsule TAKE 1 CAPSULE Weekly clobetasol (Temovate) 0.05 % ointment Apply topically. clonazePAM (KlonoPIN) 0.5 MG tablet Continuous Glucose Sensor (Dexcom G6 Sensor) misc 1 sensor every 10 days. 9 each 3 Continuous Glucose Transmitter (Dexcom G6 transmitter) misc Use as instructed with Dexcom G6 sensor, change every 90 days 1 each 3 cyclobenzaprine (Flexeril) 10 MG tablet desvenlafaxine (Pristiq) 50 MG 24 hr tablet Take 1 tablet (50 mg) by mouth 1 (one) time each day. diclofenac (Voltaren) 1 % topical gel Place 2-4 g on the skin 2 (two) times a day. 50 g 1 DULoxetine (Cymbalta) [address] capsule empagliflozin (Jardiance) 25 MG Take 1 tablet by mouth daily. 90 tablet 3 ergocalciferol 1.25 MG (62235 UT) capsule furosemide (Lasix) 80 MG tablet glipiZIDE (Glucotrol) 10 MG tablet Take 1 tablet by mouth daily before breakfast. 90 tablet 3 Glucose Blood (Blood Glucose Test) strip Use as directed to test blood glucose level 2 times per day or to calibrate CGM DX E11.9 100 strip 3 insulin glargine (Lantus SoloStar) 100 UNIT/ML injection pen INJECT 40 UNITS SUBCUTANEOUSLY AT BEDTIME. TITRATE DIRECTED. MAX DAILY DOSE OF 75 UNITS 30 mL 3 Lancets misc Use to test blood glucose level 2 times per day or to calibrate CGM DX E11.9 100 each 3 mupirocin (Bactroban) 2 % ointment omeprazole (PriLOSEC) [address] capsule pen needle, diabetic (BD Pen Needle Micro U/F) 32G X 6 MM misc Use to inject insulin 1 time per day. 100 each 3 potassium chloride CR (Klor-Con M20) 20 MEQ ER tablet pregabalin (Lyrica) 150 MG capsule simvastatin (Zocor) 5 MG tablet Take 1 tablet (5 mg) by mouth every night. Skyrizi Pen 150 MG/ML solution auto-injector tirzepatide (Mounjaro) 7.5 MG/0.5ML solution auto-injector solution pen-injector Inject 0.5 mL under the skin 1 time per week. 2 mL 5 Ubrelvy 100 MG tablet zolpidem (Ambien) 10 MG tablet TAKE 1 TABLET AT BEDTIME NEEDED FOR SLEEP. Emgality 120 MG/ML injection (Patient not taking: Reported on 06/08/2025) fluconazole (Diflucan) 150 MG tablet (Patient not taking: Reported on 06/08/2025) FLUoxetine (PROzac) 20 MG capsule Take 1 capsule (20 mg) by mouth 1 (one) time each day. (Patient not taking: Reported on 06/08/2025) Gvoke HypoPen 2-Pack 1 MG/0.2ML solution auto-injector (Patient not taking: Reported on 06/08/2025) Insulin Disposable Pump (Omnipod DASH Pods, Gen 4,) misc USE DIRECTED (CHANGE omnipod every 72 hours) (Patient not taking: Reported on 06/08/2025) ipratropium-albuterol (Duo-Neb) 0.5-2.5 mg/3 mL nebulizer solution (Patient not taking: Reported on06/08/2025) NovoLOG 100 UNIT/ML injection USE DIRECTED PER sliding scale (Max daily DOSE = 80 units) (Patient not taking: Reported on 06/08/2025) phentermine (Adipex-P) 37.5 MG tablet (Patient not taking: Reported on 06/08/2025) pramipexole (Mirapex) 0.125 MG tablet (Patient not taking: Reported on 06/08/2025) promethazine (Phenergan) 25 MG tablet 1 tablet (25 mg). Patient reports taking only as needed for nausea (Patient not taking: Reported on 06/08/2025) rOPINIRole (Requip) 1 MG tablet (Patient not taking: Reported on 06/08/2025) SUMAtriptan (Imitrex) 50 MG tablet TAKE ONE TABLET BY MOUTH FOR 1 DOSE NEEDED FOR HEADACHE. DO NOT EXCEED 9 IN 30 DAYS (Patient not taking: Reported on 06/08/2025) Vibegron (Gemtesa) 75 MG tablet 1 (one) time each day. (Patient not taking: Reported on 06/08/2025) No current facility-administered medications for this visit. documented in this encounter Plan of Treatment Upcoming Encounters Date Type Department Care Team (Late st Contact Info) Description 09/14/2025 2:20 PM EST Office Visit [facility] Medicine Specialties [address] [place] [address] Josefa Lim APRN [address] [facility] [address] [place] [address] 09/21/2025 12:20 PM EST Office Visit Jeffreytnlou Jiménez [facility] Endocrinology [address] [place] [phone] Nkechi Celeste, EVALUATION ADVISOR [address] [facility] [address] [place] [phone] Scheduled Orders Name Type Priority Associated Diagnoses Orde r Schedule CBC and Differential Lab Routine Antiphospholipid antibody syndrome (CMS/HCC) High risk medication use Expected: 06/27/2025 (Approximate), Expires: 12/26/2026 Creatinine, Plasma Lab Routine Antiphospholipid antibody syndrome (CMS/HCC) High risk medication use Expected: 06/27/2025 (Approximate), Expires: 12/26/2026 Hepatic Function Panel Lab Routine Antiphospholipid antibody syndrome (CMS/HCC) High risk medication use Expected: 06/27/2025 (Approximate), Expires: 12/26/2026 documented as of this encounter Results * (ABNORMAL) Urinalysis with reflex microscopic (Culture NOT Included) (06/08/2025 11:57 AM EDT) Color, Urine Yellow LAB URINALYSIS - AUTOMATED METHOD 06/08/2025 1:43 PM EDT [facility] Clarity, Urine Clear LAB URINALYSIS - AUTOMATED METHOD 06/08/2025 1:43 PM EDT [facility] Spec [place], Urine 1.030 1.005 - 1.030 LAB URINALYSIS - AUTOMATED METHOD 06/08/2025 1:43 PM EDT [facility] pH, Urine 5.5 5.0 - 8.0 LAB URINALYSIS - AUTOMATED METHOD 06/08/2025 1:43 PM EDT [facility] Protein, Urine Negative Negative mg/dL LAB URINALYSIS - AUTOMATED METHOD 06/08/2025 1:43 PM EDT [facility] Glucose, Urine 500(A) Negative mg/dL LAB URINALYSIS - AUTOMATED METHOD 06/08/2025 1:43 PM EDT [facility] Ketones, Urine Trace(A) Negative mg/dL LAB URINALYSIS - AUTOMATED METHOD 06/08/2025 1:43 PM EDT [facility] Blood, Urine Negative Negative LAB URINALYSIS - AUTOMATED METHOD 06/08/2025 1:43 PM EDT [facility] Bilirubin, Urine Negative Negative LAB URINALYSIS - AUTOMATED METHOD 06/08/2025 1:43 PM EDT [facility] Urobilinogen, Urine 0.2 0.2 to 1.0 mg/dL LAB URINALYSIS - AUTOMATED METHOD 06/08/2025 1:43 PM EDT [facility] Leukocytes, Urine Small(A) Negative LAB URINALYSIS - AUTOMATED METHOD 06/08/2025 1:43 PM EDT [facility] Nitrite, Urine Negative Negative LAB URINALYSIS - AUTOMATED METHOD 06/08/2025 1:43 PM EDT [facility] RBC, Urine 1 0 to 3 /HPF LAB URINALYSIS - AUTOMATED METHOD 06/08/2025 1:43 PM EDT [facility] WBC, Urine 0 - 5 0 to 5 /HPF LAB URINALYSIS - AUTOMATED METHOD 06/08/2025 1:43 PM EDT [facility] Squamous Epithelial Cells 3 - 5 0 to 5 /HPF LAB URINALYSIS - AUTOMATED METHOD 06/08/2025 1:43 PM EDT [facility] Hyaline Casts 0 - 2 0 to 5 /LPF LAB URINALYSIS - AUTOMATED METHOD 06/08/2025 1:43 PM EDT [facility] Bacteria, Urine Present Negative LAB URINALYSIS - AUTOMATED METHOD 06/08/2025 1:43 PM EDT [facility] Urine Urine specimen obtained by clean catch procedure / Unknown Non-blood Collection / Unknown 06/08/2025 11:57 AM EDT 06/08/2025 11:57 AM EDT Josefa Lim APRN LAB URINE ORDERABLES Final Result Performing Organization Address City/[facility]/ZIP Co de Phone Number [facility] [address] [place] [address] * Thyroid Peroxidase Antibody (06/08/2025 11:57 AM EDT) Thyroid Peroxidase Antibody <5 <=8 IU/mL 06/08/2025 4:18 PM EDT [facility] Blood Venous blood specimen / Unknown Venipuncture / Unknown 06/08/2025 11:57 AM EDT 06/08/2025 11:57 AM EDT Josefa Lim APRN LAB BLOOD ORDERABLES Final Result Performing Organization Address City/[facility]/ZIP Co de Phone Number [facility] [address] [place] [address] * Chambers (RANDA) Antibody, IgG (06/08/2025 11:57 AM EDT) Chambers (RANDA) Antibody, IgG 4 0 - 40 AU/mL 06/10/2025 3:57 PM EDT [facility] ([employer]) Serum 06/08/2025 11:5 7 AM EDT 06/08/2025 11:57 AM EDT Narrative [facility] ([employer]) - 06/10/2025 3:57 PM EDT INTERPRETIVE INFORMATION: Chambers (RANDA) Antibody, IgG 29 AU/mL or Less ............. Negative 30 - 40 AU/mL ................ Equivocal 41 AU/mL or Greater .......... Positive Chambers antibody is highly specific (greater than 90 percent) for systemic lupus erythematosus (SLE) but only occurs in 30-35 percent of SLE cases. The presence of antibodies to Chambers has variable associations with SLE clinical manifestations. Performed By: [employer] [address] [place] [address] Java Programming Professor: Chaz Marcelo MD, PhD CLIA Number: [id number] Josefa Lim EVALUATION ADVISOR LAB REF LAB BLOOD AND FLUI D ORD Final Result [facility] [employer] [address] * Protein, Random, Urine with Creatinine (06/08/2025 11:57 AM EDT) Protein, Urine 14 mg/dL 06/08/2025 1:51 PM EDT [facility] Creatinine, Urine 138 mg/dL 06/08/2025 1:51 PM EDT [facility] Protein/Creatin ine Ratio 0.1 mg/mg Creat 06/08/2025 1:51 PM EDT [facility] Urine Urine specimen obtained by clean catch procedure / Unknown Non-blood Collection / Unknown 06/08/2025 11:57 AM EDT 06/08/2025 11:57 AM EDT Josefa Lim APRN LAB URINE ORDERABLES Final Result [facility] [address] [place] [address] * ENAII (06/08/2025 11:57 AM EDT) SSA-52 (RO52) (RANDA) Antibody, IgG 2 0 - 40 AU/mL 06/12/2025 10:00 AM EDT [facility] (JAIDEN) SSA-60 (RO60) (RANDA) Antibody, IgG 1 0 - 40 AU/mL 06/12/2025 10:00 AM EDT [facility] ([employer]) SSB (LA) (RANDA) Antibody, IgG 1 0 - 40 AU/mL 06/12/2025 10:00 AM EDT [facility] ([employer]) Blood Venous blood specimen / Unknown Venipuncture / Unknown 06/08/2025 11:57 AM EDT 06/08/2025 11:57 AM EDT Narrative [facility] ([employer]) - 06/12/2025 10:00 AM EDT INTERPRETIVE INFORMATION: SSA-52 (Ro52) (RANDA) Antibody, IgG 29 AU/mL or Less ............. Negative 30 - 40 AU/mL ................ Equivocal 41 AU/mL or Greater .......... Positive SSA-52 (Ro52) and/or SSA-60 (Ro60) antibodies are associated with a diagnosis of Sjogren syndrome, systemic lupus erythematosus (SLE), and systemic sclerosis. SSA-52 antibody overlaps significantly with the major SSc-related antibodies. SSA-52 (Ro52) antibody occurs frequently in patients with inflammatory myopathies, often in the presence of interstitial lung disease. REFERENCE INTERVAL: SSA-60 (Ro60) (RANDA) Antibody, IgG 29 AU/mL or Less ............. Negative 30 - 40 AU/mL ................ Equivocal 41 AU/mL or Greater .......... Positive INTERPRETIVE INFORMATION: SSB (La) (RANDA) Ab, IgG 29 AU/mL or Less ............. Negative 30 - 40 AU/mL ................ Equivocal 41 AU/mL or Greater .......... Positive SSB (La) antibody is seen in 50-60% of Sjogren syndrome cases and is specific if it is the only RANDA antibody present. 15-25% of patients with systemic lupus erythematosus (SLE) and 5-10% of patients with progressive systemic sclerosis (PSS) also have this antibody. Performed By: [employer] [address] [place] [address] Java Programming Professor: Chaz Marcelo MD, PhD CLIA Number: [id number] Josefa Lim EVALUATION ADVISOR LAB BLOOD ORDERABLES Final Result Performing Organization Address [facility] de Phone Number [facility] ([facility]) [address] [place] [address] * ENAI (06/08/2025 11:57 AM EDT) [facility] Chambers/MANAGER HYDRAULIC (RANDA) Ab, IgG 4 0 - 19 Units 06/12/2025 10:59 PM EDT [facility] Blood Venous blood specimen / Unknown Venipuncture / Unknown 06/08/2025 11:57 AM EDT 06/08/2025 11:57 AM EDT Narrative [facility]) - 06/12/2025 10:59 PM EDT INTERPRETIVE INFORMATION: Chambers/MANAGER HYDRAULIC (RANDA) Antibody, IgG 19 Units or Less ............. Negative 20 to 39 Units ............... Weak Positive 40 to 80 Units ............... Moderate Positive 81 Units or greater .......... Strong Positive Chambers/MANAGER HYDRAULIC antibodies are frequently seen in patients with mixed connective tissue disease (MCTD) and are also associated with other systemic autoimmune rheumatic diseases (SARDs) such as systemic lupus erythematosus (SLE), systemic sclerosis, and myositis. Antibodies targeting the Chambers/MANAGER HYDRAULIC antigenic complex also recognize Chambers antigens, therefore, the Chambers antibody response must be considered when interpreting these results. Performed By: [employer] [address] [place] [address] Java Programming Professor: Chaz Marcelo MD, PhD CLIA Number: [id number] Josefa Lim EVALUATION ADVISOR LAB BLOOD ORDERABLES Final Result Performing Organization Address [facility] Co de Phone Number [facility] ([facility]) [address] [place] [address] * C4 Complement (06/08/2025 11:57 AM EDT) C4 Complement 15 13 - 36 mg/dL 06/08/2025 3:33 PM EDT [facility] Blood Venous blood specimen / Unknown Venipuncture / Unknown 06/08/2025 11:57 AM EDT 06/08/2025 11:57 AM EDT Josefa Lim EVALUATION ADVISOR LAB BLOOD ORDERABLES Final Result Performing Organization Address City/[facility]/ZIP Co de Phone Number [facility] [address] [place] [address] * C3 Complement (06/08/2025 11:57 AM EDT) C3 Complement 126 84 - 166 mg/dL 06/08/2025 3:[address] [facility] Blood Venous blood specimen / Unknown Venipuncture / Unknown 06/08/2025 11:57 AM EDT 06/08/2025 11:57 AM EDT Josefa Lim EVALUATION ADVISOR LAB BLOOD ORDERABLES Final Result Performing Organization Address [facility] [place] [address] * Double-Stranded DNA (dsDNA) Antibody, IgG by IFA (06/08/2025 11:57 AM EDT) Double-Strande d DNA (dsDNA) Ab IgG IFA <1:10 <1:10 06/14/2025 12:26 AM EDT [facility] ([employer]) Blood Venous blood specimen / Unknown Venipuncture / Unknown 06/08/2025 11:57 AM EDT 06/08/2025 11:57 AM EDT Narrative [facility] ([facility]) - 06/14/2025 12:26 AM EDT INTERPRETIVE INFORMATION: Double-Stranded DNA (dsDNA) Antibody, IgG by IFA (using Crithidia luciliae) Positivity for anti-double stranded DNA (anti-dsDNA) IgG antibody is a diagnostic criterion of systemic lupus erythematosus (SLE). The presence of the anti-dsDNA IgG antibody is identified by IFA titer (Crithidia luciliae indirect fluorescent test [DANAE]). DANAE is highly specific for SLE with a sensitivity of 50-60 percent. Some patients with early or inactive SLE may be positive for anti-dsDNA IgG by DARI but negative by DANAE. If the DANAE result is negative but the patient has a positive DARI and clinical suspicion remains, consider antinuclear antibody (JOAN) testing by IFA. Additional information and recommendations for testing may be found at https://[employer]!/content/zfpdrgadve-diaqar-boolnuvm. Performed By: [employer] [address] [place] [address] Java Programming Professor: Chaz Marcelo MD, PhD CLIA Number: [id number] us Josefa Lim EVALUATION ADVISOR LAB BLOOD ORDERABLES Final Result [facility] [employer]) [address] [place] [address] * Antinuclear Antibody (JOAN), HEp-2, IgG (06/08/2025 11:57 AM EDT) JOAN INTERPRETIVE COMMENT See Note 06/12/2025 2:44 PM EDT [facility] ([employer]) Anti Nuc Ab Screen <1:80 <1:80 06/12/2025 2:44 PM EDT [facility] ([employer]) Blood Venous blood specimen / Unknown Venipuncture / Unknown 06/08/2025 11:57 AM EDT 06/08/2025 11:57 AM EDT Narrative [facility] ([employer]) - 06/12/2025 2:44 PM EDT Clinical Interpretation: Antinuclear antibodies by IFA negative for homogeneous, speckled, nucleolar, centromere, and nuclear dots patterns. Cytoplasmic antibodies by IFA negative for reticular/AMA, discrete/GW body-like, polar/golgi-like, rods and rings, and cytoplasmic speckled patterns. INTERPRETIVE INFORMATION: JOAN Interpretive Comment Presence of antinuclear antibodies (JOAN) is a hallmark feature of systemic autoimmune rheumatic diseases (SARD). However, JOAN lacks diagnostic specificity and is associated with a variety of diseases (cancers, autoimmune, infectious, and inflammatory conditions) and may also occur in healthy individuals in varying prevalence. The lack of diagnostic specificity requires confirmation of positive JOAN by more specific serologic tests. JOAN (nuclear reactivity) positive patterns reported include centromere, homogeneous, nuclear dots, nucleolar, or speckled. JOAN (cytoplasmic reactivity) positive patterns reported include reticular/AMA, discrete/GW body-like, polar/golgi-like, cytoplasmic speckled or rods and rings. All positive patterns are reported to endpoint titers (1:2560). Reported patterns may help guide differential diagnosis, although they may not be specific for individual antibodies or diseases. Mitotic staining patterns not reported. Negative results do not necessarily rule out SARD. Performed By: [employer] [address] [place] [address] Java Programming Professor: Chaz Marcelo MD, PhD CLIA Number: [id number] Josefa Lim EVALUATION ADVISOR LAB BLOOD ORDERABLES Final Result [facility] ([facility]) [address] [place] [address] * (ABNORMAL) Hepatic Function Panel (06/08/2025 11:57 AM EDT) Direct Bilirubin, Plasma <0.2 <=0.3 mg/dL 06/08/2025 2:08 PM EDT [facility] Alkaline Phosphatase, Plasma 105(H) 35 - 104 U/L 06/08/2025 2:08 PM EDT [facility] Total Bilirubin, Plasma 0.4 0.2 - 1.1 mg/dL 06/08/2025 2:08 PM EDT [facility] Albumin, Plasma 4.2 3.5 - 5.2 g/dL 06/08/2025 2:08 PM EDT [facility] Total Protein 7.4 6.3 - 7.9 g/dL 06/08/2025 2:08 PM EDT [facility] ALT, Plasma 39(H) 10 - 35 U/L 06/08/2025 2:08 PM EDT [facility] AST, Plasma 38(H) 10 - 35 U/L 06/08/2025 2:08 PM EDT [facility] Blood Venous blood specimen / Unknown Venipuncture / Unknown 06/08/2025 11:57 AM EDT 06/08/2025 11:57 AM EDT Josefa Lim APRN LAB BLOOD ORDERABLES Final Result Performing Organization Address [facility] Co de Phone Number [facility] [address] [place] [address] * Creatinine, Plasma (06/08/2025 11:57 AM EDT) Creatinine, Plasma 0.76 0.60 - 1.10 mg/dL 06/08/2025 2:08 PM EDT [facility] eGFRcr 94.4 mL/min/1.7 3m*2 06/08/2025 2:08 PM EDT [facility] Comment:Reported eGFRcr in m L/min/1.73m2 is based the CKD-EPI 2020 equation that does not use a race coefficient. Blood Venous blood specimen / Unknown Venipuncture / Unknown 06/08/2025 11:57 AM EDT 06/08/2025 11:57 AM EDT Josefa Lim APRN LAB BLOOD ORDERABLES Final Result Performing Organization Address [facility] Co de Phone Number [facility] [address] [place] [address] * (ABNORMAL) CBC and Differential (06/08/2025 11:57 AM EDT) WBC Count 5.97 3.70 - 10.30 10*3/uL LAB HEMATOLOGY METHOD 06/08/2025 1:57 PM EDT [facility] RBC Count 5.21(H) 3.90 - 5.20 10*6/uL LAB HEMATOLOGY METHOD 06/08/2025 1:57 PM EDT [facility] HGB 13.7 11.2 - 15.7 g/dL LAB HEMATOLOGY METHOD 06/08/2025 1:57 PM EDT [facility] HCT 42.9 34.0 - 45.0 % LAB HEMATOLOGY METHOD 06/08/2025 1:57 PM EDT [facility] Platelet Count 174 155 - 369 10*3/uL LAB HEMATOLOGY METHOD 06/08/2025 1:57 PM EDT [facility] MCV 82 79 - 98 fL LAB HEMATOLOGY METHOD 06/08/2025 1:57 PM EDT [facility] MCH 26.3 26.0 - 32.0 pg LAB HEMATOLOGY METHOD 06/08/2025 1:57 PM EDT [facility] MCHC 31.9 30.7 - 35.5 g/dL LAB HEMATOLOGY METHOD 06/08/2025 1:57 PM EDT [facility] RDW 15.4(H) 11.5 - 14.5 % LAB HEMATOLOGY METHOD 06/08/2025 1:57 PM EDT [facility] MPV 10.6 8.8 - 12.5 fL LAB HEMATOLOGY METHOD 06/08/2025 1:57 PM EDT [facility] nRBC 0.0 <=0.0 per 100 WBCs LAB HEMATOLOGY METHOD 06/08/2025 1:57 PM EDT [facility] Differential Type Automated LAB HEMATOLOGY METHOD 06/08/2025 1:57 PM EDT [facility] Neutrophils % 57 % LAB HEMATOLOGY METHOD 06/08/2025 1:57 PM EDT [facility] Lymphocytes % 31 % LAB HEMATOLOGY METHOD 06/08/2025 1:57 PM EDT [facility] Monocytes % 6 % LAB HEMATOLOGY METHOD 06/08/2025 1:57 PM EDT [facility] Eosinophils % 3 % LAB HEMATOLOGY METHOD 06/08/2025 1:57 PM EDT [facility] Basophils % 2 % LAB HEMATOLOGY METHOD 06/08/2025 1:57 PM EDT [facility] Immature Granulocytes % 1 % LAB HEMATOLOGY METHOD 06/08/2025 1:57 PM EDT [facility] Neutrophils Absolute 3.46 1.60 - 6.10 10*3/uL LAB HEMATOLOGY METHOD 06/08/2025 1:57 PM EDT [facility] Lymphocytes Absolute 1.84 1.20 - 3.90 10*3/uL LAB HEMATOLOGY METHOD 06/08/2025 1:57 PM EDT [facility] Monocytes Absolute 0.35 0.30 - 0.90 10*3/uL LAB HEMATOLOGY METHOD 06/08/2025 1:57 PM EDT [facility] Eosinophils Absolute 0.19 0.00 - 0.50 10*3/uL LAB HEMATOLOGY METHOD 06/08/2025 1:57 PM EDT [facility] Basophils Absolute 0.09 0.00 - 0.10 10*3/uL LAB HEMATOLOGY METHOD 06/08/2025 1:57 PM EDT [facility] Immature Granulocytes Absolute 0.04 0.00 - 0.06 10*3/uL LAB HEMATOLOGY METHOD 06/08/2025 1:57 PM EDT [facility] Blood Venous blood specimen / Unknown Venipuncture / Unknown 06/08/2025 11:57 AM EDT 06/08/2025 11:57 AM EDT Narrative [facility] - 06/08/2025 1:57 PM EDT Therapeutic decision making should be based on absolute values, rather than percentages. Josefa Lim APRN LAB BLOOD ORDERABLES Final Result [facility] [address] [place] [address] documented in this encounter Visit Diagnoses Diagnosis Antiphospholipid antibody syndrome (CMS/HCC)- Primary Primary hypercoagulable state Positive JOAN (antinuclear antibody) Other and unspecified nonspecific immunological findings Psoriasis, unspecified High risk medication use Type 2 diabetes mellitus with other specified complication, without long-term current use of insulin Stage 2 chronic kidney disease documented in this encounter Additional Health Concerns Assessment Noted Time PHQ-9 Depression Total Score: 0 06/08/20 25 10:48 AM EDT A fall risk assessment has been complete d for the patient 06/08/2025 10:48 AM EDT A Body Mass Index follow-up plan has been documented for the patient 06/08/2025 11:38 AM EDT documented as of this encounter Care Teams Expenditure Requisition Clerk Relationship Specialty Start Date End Date Alissa Faria APRN [address] [place] [address] PCP - General 04/17/24 documented as of this encounter
--- OUTSIDE RECORDS SUMMARY | 2025-07-13 11:15 | XMS_ITS | Clinical Summary ---
Author Organization [facility] Address [address] [place] [address] Care Team Providers Care Epoxy Fabrication Supervisor Name Role Phone Leann Wilks APRN Primary Care Provider [phone] Social History Tobacco Use Types Packs/Day Years [...] 06/01/2025, 02/05, 10/13/2024, Additional history exists Insurance [address], [place] [address] MEDICAID PENDING on file Care Teams Epoxy Fabrication Supervisor Relationship Specialty Start Date End Date Leann Wilks APRN [address] [facility] [address] [place] [address] PCP - General Nurse Practitioner 08/12/20
--- OUTSIDE RECORDS SUMMARY | 2025-07-13 11:15 | XMS_ITS | Clinical Summary ---
Author Organization [facility] Address [address] [place] [address] Care Team Providers Care Movie Projectionist Name Role Phone Alissa Faria APRN Primary Care Provider [phone] Allergies Active Allergy Reactions Criticality Noted Date Comments Metformin Nausea,Diarrhea High 09/30/2023 Medications pramipexole (Mirapex) 0.125 MG tablet 08/16/20 20 Active albuterol 108 (90 Base) MCG/ACT inhaler 08/19/20 20 Active cholecalciferol (Vitamin D-3) 1.25 MG (52355 UT) capsule TAKE 1 CAPSULE Weekly 08/16/20 [...] MG tablet 07/13/20 Active ergocalciferol 1.25 MG (41727 UT) capsule 06/22/20 Active clobetasol (Temovate) 0.05 [...] mellitus with other specified complication, unspecified whether skilled nursing insulin use Test 2 times each day, Dx E11.9 1 kit 07/07/20 24 Active Glucose Blood (Blood Glucose Test) stripIndication s:Type 2 diabetes mellitus with other specified complication, unspecified whether terminal operations supervisor insulin use Use as directed to test blood glucose level 2 times per day or to calibrate CGM DX E11.9 100 strip 3 07/07/20 24 Active Lancets miscIndications :Type 2 diabetes mellitus with other specified complication, unspecified whether terminal operations supervisor insulin use Use to test blood glucose [...] mellitus with other specified complication, unspecified whether skilled nursing insulin use Take 1 tablet by mouth daily. 90 tablet 3 03/02/20 25 026 Active tirzepatide (Mounjaro) 7.5 MG/0.5ML solution auto-injector solution pen-injectorInd ications:Type 2 Diabetes Mellitus Inject 0.5 mL under the skin 1 time per week. 2 mL 5 06/01/20 25 026 Active glipiZIDE (Glucotrol) 10 MG tabletIndicatio ns:Type 2 diabetes mellitus with other specified complication, unspecified whether skilled nursing insulin use Take 1 tablet by mouth daily before breakfast. 90 tablet 3 06/01/20 25 026 Active Continuous Glucose Transmitter (Dexcom G6 transmitter) miscIndications :Type 2 diabetes mellitus with other specified complication, unspecified whether skilled nursing insulin use Use as instructed with Dexcom G6 sensor, change every 90 days 1 each 06/01/20 25 Active Continuous Glucose Sensor (Dexcom G6 Sensor) miscIndications :Type 2 diabetes mellitus with other specified complication, unspecified whether skilled nursing insulin use 1 sensor every 10 days. 9 each 3 06/01/20 25 026 Active insulin glargine (Lantus SoloStar) 100 UNIT/ML injection penIndications: Type 2 diabetes mellitus with other specified complication, unspecified whether terminal operations supervisor insulin use INJECT 40 UNITS SUBCUTANEOUSLY AT [...] daily. 90 tablet 3 06/08/20 25 Active Active Problems Problem Noted Date [...] Encounters Date Type Department Care Team Description 07/04/2025 Telephone [place] [facility] [address], [address] [place] [address] Aleyda Haji, RN 06/14/2025 Results Follow-Up [facility] Medicine Specialties [address], [address] [place] [phone] Vane Lim APRN 06/08/2025 10:30 AM EDT Office Visit [facility] Medicine Specialties [address], [address] [place] [address] Vane Lim APRN Antiphospholipid antibody syndrome (CMS/HCC) (Primary Dx); Positive JOAN (antinuclear antibody); Psoriasis, unspecified; High risk medication use; Type 2 diabetes mellitus with other specified complication, without long-term current use of insulin; Stage 2 chronic kidney disease 06/08/2025 Travel 06/01/2025 12:40 PM EDT Office Visit [facility] Endocrinology [address] [place] [address] Nkechi Celeste APRN Type 2 diabetes mellitus with other specified complication, unspecified whether skilled nursing insulin use (CMS/HCC) (Primary Dx); Neuropathy; Hyperlipidemia, unspecified hyperlipidemia type; Obesity (BMI 30-39.9) 06/01/2025 Travel 04/19/2025 Refill [facility] Endocrinology [address] [place] [address] Nkechi Celeste APRN from Last 3 Months [...] Description 09/14/2025 2:20 PM EST Office Visit [facility] Medicine Specialties [address], [address] [place] [address] Vane Lim, RIBBON HANKING MACHINE OPERATOR [address] [place] [address] 09/21/2025 12:20 PM EST Office Visit [facility] Endocrinology [address] [place] [phone] Nkechi Celeste, RIBBON HANKING MACHINE OPERATOR [address] [place] [phone] Health Maintenance Due Date Last Done Comments [facility]-HIV Screening 1972 [facility]-Infant/Child/Adol SDOH Screenings 1972 Diabetes: Dental Exam 1982 [...] PPSV23, PCV20, or PCV21) 09/02/2017 07/19/2017, 07/08/2017 [id number] Vaccine (3 - Moderna risk series) 01/29/2021 01/01/2021, 12/04/2020 [facility]-Breast Cancer Screening 2022 03/23/2013 [facility]-Zoster Vaccines (1 of 2) 2022 [facility]-Influenza [...] of insulin Stage 2 chronic kidney disease CHAMBERS/DYE PADDER OPERATOR (RANDA) ANTIBODY, IGG (SO) Routine 06/08/2025 11:57 [...] mellitus with other specified complication, unspecified whether terminal operations supervisor insulin use (CMS/HCC) ACUTE HEPATITIS PANEL Routine [...] Lim APRN LAB URINE ORDERABLES Final Result [facility] [address] [phone] * Chambers (RANDA) Antibody, IgG (06/08/2025 11:57 AM EDT) Chambers (RANDA) Antibody, IgG 4 0 - 40 AU/mL 06/10/2025 3:57 PM EDT [facility] ([employer]) Serum 06/08/2025 11:5 7 AM EDT 06/08/2025 11:57 AM EDT Narrative [facility] ([employer]) - 06/10/2025 3:57 PM EDT INTERPRETIVE INFORMATION: [...] associations with SLE clinical manifestations. Performed By: [facility] [address] [place] [address] Structural Welder: Chaz Marcelo MD, PhD CLIA Number: [id number] us Vane Lim RIBBON HANKING MACHINE OPERATOR LAB REF LAB BLOOD AND FLUI D ORD Final Result [facility] ([employer]) [address] [place] [address] * ENAII (06/08/2025 11:57 AM EDT) SSA-52 (RO52) (RANDA) Antibody, IgG 2 0 - 40 AU/mL 06/12/2025 10:00 AM EDT [email or web address] ([employer]) SSA-60 (RO60) (RANDA) Antibody, IgG 1 0 - 40 AU/mL 06/12/2025 10:00 AM EDT [facility] ([employer]) SSB (LA) (RANDA) Antibody, IgG 1 0 - 40 AU/mL 06/12/2025 10:00 AM EDT [facility] ([employer]) Blood Venous blood specimen / Unknown Venipuncture / Unknown 06/08/2025 11:57 AM EDT 06/08/2025 11:57 AM EDT Narrative [facility] ([employer]) - 06/12/2025 10:00 AM EDT INTERPRETIVE INFORMATION: [...] (PSS) also have this antibody. Performed By: [facility] [address] [place] [address] Structural Welder: Chaz Marcelo MD, PhD CLIA Number: [id number] us Vane Lim RIBBON HANKING MACHINE OPERATOR LAB BLOOD ORDERABLES Final Result [facility]) [address] [place], [place] [phone] * ENAI (06/08/2025 11:57 AM EDT) Chambers/DYE PADDER OPERATOR (RANDA) Ab, IgG 4 0 - 19 Units 06/12/2025 10:59 PM EDT [facility]) Blood Venous blood specimen / Unknown Venipuncture / Unknown 06/08/2025 11:57 AM EDT 06/08/2025 11:57 AM EDT Narrative [facility]) - 06/12/2025 10:59 PM EDT INTERPRETIVE INFORMATION: Chambers/DYE PADDER OPERATOR (RANDA) Antibody, IgG 19 Units or Less ............. Negative 20 to 39 Units ............... Weak Positive 40 to 80 Units ............... Moderate Positive 81 Units or greater .......... Strong Positive Chambers/DYE PADDER OPERATOR antibodies are frequently seen in patients with mixed connective tissue disease (MCTD) and are also associated with other systemic autoimmune rheumatic diseases (SARDs) such as systemic lupus erythematosus (SLE), systemic sclerosis, and myositis. Antibodies targeting the Chambers/DYE PADDER OPERATOR antigenic complex also recognize Chambers antigens, therefore, the Chambers antibody response must be considered when interpreting these results. Performed By: [facility] [address] [place] [address] Structural Welder: Chaz Marcelo MD, PhD CLIA Number: [id number] Vane Lim [facility] LAB BLOOD ORDERABLES Final Result Performing Organization Address City/[facility]/ZIP Co de Phone Number [facility]) [address] [place] [address] * Thyroid Peroxidase Antibody (06/08/2025 11:57 AM EDT) [facility] Thyroid Peroxidase Antibody <5 <=8 IU/mL 06/08/2025 4:18 PM EDT [facility] Blood Venous blood specimen / Unknown Venipuncture / Unknown 06/08/2025 11:57 AM EDT 06/08/2025 11:57 AM EDT Vane Lim RIBBON HANKING MACHINE OPERATOR LAB BLOOD ORDERABLES Final Result [facility] [address] [place] [address] * Double-Stranded DNA (dsDNA) Antibody, IgG by IFA (06/08/2025 11:57 AM EDT) [facility] Double-Strande d DNA (dsDNA) Ab IgG IFA <1:10 <1:10 06/14/2025 12:26 AM EDT [facility]) Blood Venous blood specimen / Unknown Venipuncture / Unknown 06/08/2025 11:57 AM EDT 06/08/2025 11:57 AM EDT Narrative [facility] ([facility]) - 06/14/2025 12:26 AM EDT [...] recommendations for testing may be found at [email or web address]. Performed By: [facility] [address] [place] [address] Structural Welder: Chaz Marcelo MD, PhD CLIA Number: [id number] Vane Lim RIBBON HANKING MACHINE OPERATOR LAB BLOOD ORDERABLES Final Result [facility] ([facility]) [address] [place] [address] * Protein, Random, Urine with Creatinine (06/08/2025 11:57 AM EDT) Protein, Urine 14 mg/dL 06/08/2025 1:51 PM EDT [facility] Creatinine, Urine 138 mg/dL 06/08/2025 1:51 PM EDT [facility] Protein/Creatin ine Ratio 0.1 mg/mg Creat 06/08/2025 1:51 PM EDT [facility] Urine Urine specimen obtained by clean catch procedure / Unknown Non-blood Collection / Unknown 06/08/2025 11:57 AM EDT 06/08/2025 11:57 AM EDT Vane Lim RIBBON HANKING MACHINE OPERATOR LAB URINE ORDERABLES Final Result [facility] [address] [place] [address] * Creatinine, Plasma (06/08/2025 11:57 AM EDT) Creatinine, Plasma 0.76 0.60 - 1.10 mg/dL 06/08/2025 2:08 PM EDT [facility] eGFRcr 94.4 mL/min/1.7 3m*2 06/08/2025 2:08 PM EDT [facility] Comment:Reported eGFRcr in m L/min/1.73m2 is based the CKD-EPI 2020 equation that does not use a race coefficient. Blood Venous blood specimen / Unknown Venipuncture / Unknown 06/08/2025 11:57 AM EDT 06/08/2025 11:57 AM EDT Vane Lim APRN LAB BLOOD ORDERABLES Final Result Performing Organization Address City/[facility]/ZIP Co de Phone Number [facility] [address] [place] [address] * (ABNORMAL) Urinalysis with reflex microscopic (Culture NOT Included) (06/08/2025 11:57 AM EDT) Color, Urine Yellow LAB URINALYSIS - AUTOMATED METHOD 06/08/2025 1:43 PM EDT [facility] Clarity, Urine Clear LAB URINALYSIS - AUTOMATED METHOD 06/08/2025 1:43 PM EDT [facility] Spec [facility] [place], Urine 1.030 1.005 - 1.030 LAB URINALYSIS - AUTOMATED METHOD 06/08/2025 1:43 PM EDT [facility] pH, Urine 5.5 5.0 - 8.0 LAB URINALYSIS - AUTOMATED METHOD 06/08/2025 1:43 PM EDT [facility] Protein, Urine Negative Negative mg/dL LAB URINALYSIS - AUTOMATED METHOD 06/08/2025 1:43 PM EDT [facility] Glucose, Urine 500(A) Negative mg/dL LAB URINALYSIS - AUTOMATED METHOD 06/08/2025 1:43 PM EDT [facility] Ketones, Urine Trace(A) Negative mg/dL LAB URINALYSIS - AUTOMATED METHOD 06/08/2025 1:43 PM EDT [facility] Blood, Urine Negative Negative LAB URINALYSIS - AUTOMATED METHOD 06/08/2025 1:43 PM EDT [facility] Bilirubin, Urine Negative Negative LAB URINALYSIS - AUTOMATED METHOD 06/08/2025 1:43 PM EDT [facility] Urobilinogen, Urine 0.2 0.2 to 1.0 mg/dL LAB URINALYSIS - AUTOMATED METHOD 06/08/2025 1:43 PM EDT [facility] Leukocytes, Urine Small(A) Negative LAB URINALYSIS - AUTOMATED METHOD 06/08/2025 1:43 PM EDT [facility] Nitrite, Urine Negative Negative LAB URINALYSIS - AUTOMATED METHOD 06/08/2025 1:43 PM EDT [facility] RBC, Urine 1 0 to 3 /HPF LAB URINALYSIS - AUTOMATED METHOD 06/08/2025 1:43 PM EDT [facility] WBC, Urine 0 - 5 0 to 5 /HPF LAB URINALYSIS - AUTOMATED METHOD 06/08/2025 1:43 PM EDT [facility] Squamous Epithelial Cells 3 - 5 0 to 5 /HPF LAB URINALYSIS - AUTOMATED METHOD 06/08/2025 1:43 PM EDT [facility] Hyaline Casts 0 - 2 0 to 5 /LPF LAB URINALYSIS - AUTOMATED METHOD 06/08/2025 1:43 PM EDT [facility] Bacteria, Urine Present Negative LAB URINALYSIS - AUTOMATED METHOD 06/08/2025 1:43 PM EDT [facility] Urine Urine specimen obtained by clean catch procedure / Unknown Non-blood Collection / Unknown 06/08/2025 11:57 AM EDT 06/08/2025 11:57 AM EDT us Vane Lim RIBBON HANKING MACHINE OPERATOR LAB URINE ORDERABLES Final Result [facility] [address] [place] [address] * (ABNORMAL) CBC and Differential (06/08/2025 11:57 AM EDT) [facility] WBC Count 5.97 3.70 - 10.30 10*3/uL LAB HEMATOLOGY METHOD 06/08/2025 1:57 PM EDT [facility] RBC Count 5.21(H) 3.90 - 5.20 10*6/uL LAB HEMATOLOGY METHOD 06/08/2025 1:57 PM EDT [facility] HGB 13.7 11.2 - 15.7 g/dL LAB HEMATOLOGY METHOD 06/08/2025 1:57 PM EDT [facility] HCT 42.9 34.0 - 45.0 % LAB HEMATOLOGY METHOD 06/08/2025 1:57 PM EDT [facility] Platelet Count 174 155 - 369 10*3/uL LAB HEMATOLOGY METHOD 06/08/2025 1:57 PM EDT [facility] MCV 82 79 - 98 fL LAB HEMATOLOGY METHOD 06/08/2025 1:57 PM EDT [facility] MCH 26.3 26.0 - 32.0 pg LAB HEMATOLOGY METHOD 06/08/2025 1:57 PM EDT [facility] MCHC 31.9 30.7 - 35.5 g/dL LAB HEMATOLOGY METHOD 06/08/2025 1:57 PM EDT [facility] RDW 15.4(H) 11.5 - 14.5 % LAB HEMATOLOGY METHOD 06/08/2025 1:57 PM EDT [facility] MPV 10.6 8.8 - 12.5 fL LAB HEMATOLOGY METHOD 06/08/2025 1:57 PM EDT [facility] nRBC 0.0 <=0.0 per 100 WBCs LAB HEMATOLOGY METHOD 06/08/2025 1:57 PM EDT [facility] Differential Type Automated LAB HEMATOLOGY METHOD 06/08/2025 1:57 PM EDT [facility] Neutrophils % 57 % LAB HEMATOLOGY METHOD 06/08/2025 1:57 PM EDT [facility] Lymphocytes % 31 % LAB HEMATOLOGY METHOD 06/08/2025 1:57 PM EDT [facility] Monocytes % 6 % LAB HEMATOLOGY METHOD 06/08/2025 1:57 PM EDT [facility] Eosinophils % 3 % LAB HEMATOLOGY METHOD 06/08/2025 1:57 PM EDT [facility] Basophils % 2 % LAB HEMATOLOGY METHOD 06/08/2025 1:57 PM EDT [facility] Immature Granulocytes % 1 % LAB HEMATOLOGY METHOD 06/08/2025 1:57 PM EDT [facility] Neutrophils Absolute 3.46 1.60 - 6.10 10*3/uL LAB HEMATOLOGY METHOD 06/08/2025 1:57 PM EDT [facility] Lymphocytes Absolute 1.84 1.20 - 3.90 10*3/uL LAB HEMATOLOGY METHOD 06/08/2025 1:57 PM EDT [facility] Monocytes Absolute 0.35 0.30 - 0.90 10*3/uL LAB HEMATOLOGY METHOD 06/08/2025 1:57 PM EDT [facility] Eosinophils Absolute 0.19 0.00 - 0.50 10*3/uL LAB HEMATOLOGY METHOD 06/08/2025 1:57 PM EDT [facility] Basophils Absolute 0.09 0.00 - 0.10 10*3/uL LAB HEMATOLOGY METHOD 06/08/2025 1:57 PM EDT [facility] Immature Granulocytes Absolute 0.04 0.00 - 0.06 10*3/uL LAB HEMATOLOGY METHOD 06/08/2025 1:57 PM EDT [facility] Blood Venous blood specimen / Unknown Venipuncture / Unknown 06/08/2025 11:57 AM EDT 06/08/2025 11:57 AM EDT Narrative [facility] - 06/08/2025 1:57 PM EDT Therapeutic decision making should be based on absolute values, rather than percentages. us Vane Lim RIBBON HANKING MACHINE OPERATOR LAB BLOOD ORDERABLES Final Result [facility] [address] [place] [address] * C3 Complement (06/08/2025 11:57 AM EDT) C3 Complement 126 84 - 166 mg/dL 06/08/2025 3:33 PM EDT [facility] Blood Venous blood specimen / Unknown Venipuncture / Unknown 06/08/2025 11:57 AM EDT 06/08/2025 11:57 AM EDT Vane Karimilins RIBBON HANKING MACHINE OPERATOR LAB BLOOD ORDERABLES Final Result Performing Organization Address City/[facility]/ZIP Co de Phone Number [facility] [address] [place] [address] * C4 Complement (06/08/2025 11:57 AM EDT) C4 Complement 15 13 - 36 mg/dL 06/08/2025 3:33 PM EDT [facility] Blood Venous blood specimen / Unknown Venipuncture / Unknown 06/08/2025 11:57 AM EDT 06/08/2025 11:57 AM EDT Vane Karimimahi NÚÑEZ LAB BLOOD ORDERABLES Final Result Performing Organization Address [facility] [place] [address] * Antinuclear Antibody (JOAN), HEp-2, IgG (06/08/2025 11:57 AM EDT) JOAN INTERPRETIVE COMMENT See Note 06/12/2025 2:44 PM EDT [facility] ([employer]) Anti Nuc Ab Screen <1:80 <1:80 06/12/2025 2:44 PM EDT [facility] ([employer]) Blood Venous blood specimen / Unknown Venipuncture / Unknown 06/08/2025 11:57 AM EDT 06/08/2025 11:57 AM EDT Narrative [facility] ([employer]) - 06/12/2025 2:44 PM EDT Clinical Interpretation: [...] not necessarily rule out SARD. Performed By: [facility] [address] [place] [address] Structural Welder: Chaz Marcelo MD, PhD CLIA Number: [id number] Vane Lim RIBBON HANKING MACHINE OPERATOR LAB BLOOD ORDERABLES Final Result [facility] ([facility]) [address] [place] [address] * (ABNORMAL) Hepatic Function Panel (06/08/2025 11:57 AM EDT) Direct Bilirubin, Plasma <0.2 <=0.3 mg/dL 06/08/2025 2:08 PM EDT [facility] Alkaline Phosphatase, Plasma 105(H) 35 - 104 U/L 06/08/2025 2:08 PM EDT [facility] Total Bilirubin, Plasma 0.4 0.2 - 1.1 mg/dL 06/08/2025 2:08 PM EDT [facility] Albumin, Plasma 4.2 3.5 - 5.2 g/dL 06/08/2025 2:08 PM EDT [facility] Total Protein 7.4 6.3 - 7.9 g/dL 06/08/2025 2:08 PM EDT [facility] ALT, Plasma 39(H) 10 - 35 U/L 06/08/2025 2:08 PM EDT [facility] AST, Plasma 38(H) 10 - 35 U/L 06/08/2025 2:08 PM EDT [facility] Blood Venous blood specimen / Unknown Venipuncture / Unknown 06/08/2025 11:57 AM EDT 06/08/2025 11:57 AM EDT Vane Lim RIBBON HANKING MACHINE OPERATOR LAB BLOOD ORDERABLES Final Result Performing Organization Address [facility]/ZIP Co de Phone Number [facility] [address] [place] [address] * POCT glycosylated hemoglobin (Hb A1C) (06/01/2025 12:47 PM EDT) [facility] POCT Hemoglobin A1C 6.8 <5.7% Non-Diabet ic % [facility] Kit Lot Number [id number] [facility] Kit Expiration Date 04/2027 [facility] Blood Venous blood specimen / Unknown 06/01/2025 12:47 PM EDT Nkechi Celeste RIBBON HANKING MACHINE OPERATOR POINT OF CARE TEST ENTER /EDIT ORDERABLES Final Result Performing Organization Address [facility] Co de Phone Number [facility] [address] [place] [address] * Acute Hepatitis Panel (12/21/2023 11:06 AM EDT) [facility] Hepatitis B Surf Antigen Negative Negative 12/21/2023 2:38 PM EDT [facility] Hepatitis C Antibody Negative Negative 12/21/2023 2:38 PM EDT [facility] Hepatitis A Antibody IgM Negative Negative 12/21/2023 2:38 PM EDT [facility] Hepatitis B Core Antibody IgM Negative Negative 12/21/2023 2:38 PM EDT [facility] Blood Venous blood specimen / Unknown Venipuncture / Unknown 12/21/2023 11:06 AM EDT 12/21/2023 11:07 AM EDT Vane Lim RIBBON HANKING MACHINE OPERATOR LAB BLOOD ORDERABLES Final Result Performing Organization Address City/[facility] Co de Phone Number [facility] [address] [place] [address] from Last 3 Months or Most Recently Relevant to Health Maintenance Insurance ANTHEM Care Teams Movie Projectionist Relationship Specialty Start Date End Date Alissa Faria APRN [address] [place] [address] PCP - General 04/17/24
--- OUTSIDE RECORDS SUMMARY | 2025-07-13 11:15 | XMS_ITS | Encounter Summary ---
Author Organization Healthcare Address [address] [place] [address] Care Team Providers Care Support Staff Name Role Phone Alissa Faria WILTON Primary Care Provider [phone] Encounter Details Date Type Department Care Team [...] Description 09/14/2025 2:20 PM EST Office Visit [facility] Medicine [facility] [address], [address] [place] [address] Vane Lim APRN [address] [place] [address] 09/21/2025 12:20 PM EST [facility] [address] [place] [phone] Nkechi Celeste, LUMBER YARD WORKER [address] [facility] [address] [place] [address] documented as of this encounter Visit Diagnoses Not on filedocumented in this encounter Additional Health Concerns Assessment Noted Time A fall risk assessment has been complete d for the patient 06/09/2024 10:35 AM EDT A Body Mass Index follow-up plan has been documented for the patient 06/01/2025 2:51 PM EDT documented as of this encounter Care Teams Support Staff Relationship Specialty Start Date End Date Alissa Faria APRN [address] [place] [address] PCP - General 04/17/24 documented as of this encounter
--- OUTSIDE RECORDS SUMMARY | 2025-07-13 11:15 | XMS_ITS | Encounter Summary ---
Author Organization [place] [address] Care Team Providers Care Glue Maker Bone Name Role Phone Amy Ervin MD Unavailable [phone] Anshul Stephen MD Primary Care Provider [phone] Luis Daniel Silvestre MD Unavailable [phone] Encounter Details Date Type Department Care Team (Late st Contact Info) Description 06/15/2017 Orders Only [facility] Edg [address] [facility] [address] [place] [address] Luis Daniel Silvestre MD [address] [place] [address] Social History Tobacco Use Types [...] Silvestre MD CARDIAC CATH ORDERABLES Final Result [facility] [address] [place] [address] documented in this encounter Visit Diagnoses Not on filedocumented in this encounter Care Teams Glue Maker Bone Relationship Specialty Start Date End Date Anshul Stephen MD [address] [place] [address] PCP - General Emergency Medicine 05/20/17 Amy Ervin MD [address] [place] [address] [place] [address] Consulting Physician Internal Medicine - Clinical Cardiac Electrophysiology 05/20/17 07/25/17 Luis Daniel Silvestre MD [address] [place] [address] Consulting Physician Internal Medicine - Clinical Cardiac Electrophysiology 07/26/17 documented as of this encounter
--- OUTSIDE RECORDS SUMMARY | 2025-07-13 11:16 | XMS_ITS | Clinical Summary ---
Author Organization [facility] Address [address] [place] [address] Phone Care Team Providers Care Film Casting Operator Name Role Phone Anshul Stephen MD Primary Care Provider + [phone] Luis Daniel Silvestre MD Unavailable [phone] Allergies No known active allergies Medications VENTOLIN HFA 90 mcg/actuation Inhl HFA Aerosol Inhaler Inhale 2 Puffs into the lungs every 6 hours as needed. 04/28/2017 Active DULoxetine (CYMBALTA) 20 mg Oral Capsule, Delayed Release(E.C.) Take 20 mg by mouth daily. 04/28/2017 Active fluticasone (FLONASE) 50 mcg/actuation Nasl [place], Suspension 1 [place] by Nasal route daily as needed. 04/28/2017 [...] Impressions 03/24/2013 3:51 PM EDT : Negative ([id number]-Awitompo-1) ~ RECOMMENDATION: Routine screening mammogram in 1 [...] densities. No suspicious calcifications. ~ IMPRESSION: Negative (HLP-Uyrybinm-0) ~ RECOMMENDATION: Routine screening mammogram in 1 [...] Radiologist and CAD. Nicholas Bains Sr., MD [facility] [place] [facility] Final Result from Last 3 Months or Most Recently Relevant to Health Maintenance Insurance [facility] [employer] Member Subscriber Plan / Payer (Ef fective 2016-Present) Name:Manisha Desouza Relation to Subscriber:Spouse Name:RILEY DESOUZA Date of :1971 (Home) Address: [address] [id number] [facility] [place] [id number] Payer ID:[id number] (NAIC) Type:Not on file Address: [address] [place] [id number] [facility] [employer] Care Teams Film Casting Operator Relationship Specialty Start Date End Date Anshul Stephen MD [address] [facility] [address] [place] [address] PCP - General Emergency Medicine 05/20/17 Luis Daniel Silvestre MD [address] [facility] [place] [address] Consulting Physician Internal Medicine - Clinical Cardiac Electrophysiology 07/26/17
--- OUTSIDE RECORDS SUMMARY | 2025-07-13 11:16 | XMS_ITS | Encounter Summary ---
Author Organization Healthcare Address [address] [place] [address] Care Team Providers Care Sleeve Maker Name Role Phone Alissa Faria WILTON Primary Care Provider [phone] Encounter Details Date Type Department Care Team (Late st Contact Info) Description 06/14/2025 Results Follow-Up [facility] Medicine Specialties [address] [place] [address] Vane Lim APRN [address] [place] [address] Social History Tobacco Use Types [...] Description 09/14/2025 2:20 PM EST Office Visit [facility] Medicine Specialties [address] [place] [address] Vane Lim APRN [address] [place] [id number] 09/21/2025 12:20 PM EST [facility] [address] [place] [address] Nkechi Celeste APRN [address] [facility] [address] [place] [address] documented as of this encounter [...] documented as of this encounter Care Teams Sleeve Maker Relationship Specialty Start Date End Date Alissa Faria APRN [address] [place] [address] PCP - General 04/17/24 documented as of this encounter
--- OUTSIDE RECORDS SUMMARY | 2025-07-13 11:16 | XMS_ITS | Data Portability ---
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 Dressings were applied. Patient tolerated the procedure well, left the operating room in satisfactory condition. [email or web address] Not available 07/11/2019 03:13:58 Plan of Treatment Reminders Order Date Submit Date Provider Last Modified By Organization Details Last Modified Time Details Appointments None recorded. Lab urinalysis panel, auto 2021 022 [facility], [address], [address], [place], [address], 14:55:13 urinalysis, dipstick, auto 2018 019 [facility], [address], [address], [place], [address], 9 15:31:24 urinalysis, dipstick, auto 2018 019 [facility], [address], [address], [place], [address], 9 17:12:55 Referral None recorded. Procedures None recorded. Surgeries interstim continence control therapy, permanent (SURG) 2018 [facility], [address] [facility] [address], [place], [address], 9 15:02:52 Imaging None recorded. Medication Orders Percocet 5 mg-325 mg tablet 2018 Magalie cartagena [facility], [address], [id number], 9 15:02:06 cefadroxil 500 mg capsule 2018 mitzi Castorthiana [facility], [address] [address] [address], JUVENAL [place], [id number], 9 15:02:02 Patient TargetsNo targets recorded. Patient Instructions Encounter Date Encounter Id Patient Instructions Last Modified By Organization Details Last Modified Time 09/05/2018 [id number] Urge Incontinence: Care Instructions celenaadley Not available 09/07/2018 10:27:33 06/08/2019 [id number] Urge Incontinence: Care Instructions fhadley Not available 06/08/2019 17:12:55 07/25/2019 [id number] learning about healthy weight fhadley Not available 07/25/2019 15:31:24 Urge Incontinence: Care Instructions adjohn [facility] Not available 07/25/2019 15:31:24 Reason for Referral None Reported. Results Created Date Observation Date Name Description Value Unit Range Abnormal Flag Note LastModifiedBy Organization Detail LastModifiedTime 07/25/2007/25/2019 urina lysis , dipst ick, auto Unknown Analyte Yellow Not Available [facility] [address], [address], 07/25/2019 15:02:40 07/25/20 19 07/25/2019 urina lysis , dipst ick, auto Unknown Analyte Clear Not Available [facility] [address], [place], [address], 07/25/2019 15:02:40 07/25/2007/25/2019 urina lysis , dipst ick, auto Unknown Analyte 1.015 Not Available [facility] [address], [place], [address], 07/25/2019 15:02:40 07/25/20 19 07/25/2019 urina lysis , dipst ick, auto Unknown Analyte 1.003 - 1.035 Not Available [facility] [address], [place], [address], 07/25/2019 15:02:40 07/25/20 19 07/25/2019 urina lysis , dipst ick, auto Unknown Analyte 5.0 Not Available [facility] [address], [place], [address], 07/25/2019 15:02:40 07/25/2007/25/2019 urina lysis , dipst ick, auto Unknown Analyte 5.0 - 8.0 Not Available [facility] [address], [place], [address], 07/25/2019 15:02:40 07/25/20 19 07/25/2019 urina lysis , dipst ick, auto Unknown Analyte Negati ve Not Available [facility] [address], [place], [address], 07/25/2019 15:02:40 07/25/20 19 07/25/2019 urina lysis , dipst ick, auto Unknown Analyte Negati ve Not Available [facility] [address] [facility] [address], [place], [address], 07/25/2019 15:02:40 07/25/2007/25/2019 urina lysis , dipst ick, auto Unknown Analyte Negati ve Not Available [facility] [address], [place], [address], 07/25/2019 15:02:40 07/25/2007/25/2019 urina lysis , dipst ick, auto Unknown Analyte Negati ve Not Available [facility] [address], [place], [address], 07/25/2019 15:02:40 07/25/20 19 07/25/2019 urina lysis , dipst ick, auto Unknown Analyte Negtiv e Not Available [facility] [address], [place], [address], 07/25/2019 15:02:40 07/25/2007/25/2019 urina lysis , dipst ick, auto Unknown Analyte Negati ve - Trace Not Available [facility] [address], [place], [address], 07/25/2019 15:02:40 07/25/20 19 07/25/2019 urina lysis , dipst ick, auto Unknown Analyte Normal Not Available [facility] [address], [place], [address], 07/25/2019 15:02:40 07/25/20 19 07/25/2019 urina lysis , dipst ick, auto Unknown Analyte Normal Not Available [facility] [address], [place], [address], 07/25/2019 15:02:40 07/25/2007/25/2019 urina lysis , dipst ick, auto Unknown Analyte Negati ve Not Available [facility] [address], [place], [address], 07/25/2019 15:02:40 07/25/2007/25/2019 urina lysis , dipst ick, auto Unknown Analyte Negati ve Not Available [facility] [address], [place], [address], 07/25/2019 15:02:40 07/25/2007/25/2019 urina lysis , dipst ick, auto Unknown Analyte Normal Not Available [facility] [address], [place], [address], 07/25/2019 15:02:40 07/25/2007/25/2019 urina lysis , dipst ick, auto Unknown Analyte Normal - 1mg/dl Not Available [facility] [address], [place], [address], 07/25/2019 15:02:40 07/25/2007/25/2019 urina lysis , dipst ick, auto Unknown Analyte Negati ve Not Available [facility] [address], [place], [address], 07/25/2019 15:02:40 07/25/2007/25/2019 urina lysis , dipst ick, auto Unknown Analyte Negati ve Not Available [facility] [address], [place], [address], 07/25/2019 15:02:40 07/25/2007/25/2019 urina lysis , dipst ick, auto Unknown Analyte Negati ve Not Available [facility] [address], [place], [address], 07/25/2019 15:02:40 07/25/2007/25/2019 urina lysis , dipst ick, auto Unknown Analyte Negati ve Not Available [facility] [address], [place], [address], 07/25/2019 15:02:40 07/25/20 19 07/25/2019 urina lysis , dipst ick, auto Unknown Analyte Clean Catch Not Available [facility] [address] [facility] [address], [place], [address], 07/25/2019 15:02:40 07/25/2007/25/2019 urina lysis , dipst ick, auto Unknown Analyte Automa román Not Available [facility] [address] [facility] [address], [place], [address], 07/25/2019 15:02:40 06/08/2006/08/2019 urina lysis , dipst ick, auto Unknown Analyte Yellow Not Available [facility] [address] [facility] [address], [place], [address], 06/08/2019 14:26:55 06/08/2006/08/2019 urina lysis , dipst ick, auto Unknown Analyte Clear Not Available [facility] [address] [facility] [address], [place], [address], 06/08/2019 14:26:55 06/08/2006/08/2019 urina lysis , dipst ick, auto Unknown Analyte 1.020 Not Available [facility] [address] [facility] [address], [place], [address], 06/08/2019 14:26:55 06/08/2006/08/2019 urina lysis , dipst ick, auto Unknown Analyte 1.003 - 1.035 Not Available [facility] [address] [facility] [address], [place], [address], 06/08/2019 14:26:55 06/08/2006/08/2019 urina lysis , dipst ick, auto Unknown Analyte 5.0 Not Available [facility] [address] [facility] [address], [place], [address], 06/08/2019 14:26:55 06/08/2006/08/2019 urina lysis , dipst ick, auto Unknown Analyte 5.0 - 8.0 Not Available [facility] [address] [facility] [address], [place], [address], 06/08/2019 14:26:55 06/08/2006/08/2019 urina lysis , dipst ick, auto Unknown Analyte Negati ve Not Available [facility] [address] [place] [address] [address], [place], [address], 06/08/2019 14:26:55 06/08/2006/08/2019 urina lysis , dipst ick, auto Unknown Analyte Negati ve Not Available [facility] [address] [facility] [address], [place], [address], 06/08/2019 14:26:55 06/08/2006/08/2019 urina lysis , dipst ick, auto Unknown Analyte Negati ve Not Available [facility] [address] [facility] [address], [place], [address], 06/08/2019 14:26:55 06/08/2006/08/2019 urina lysis , dipst ick, auto Unknown Analyte Negati ve Not Available [facility] [address], [place], [address], 06/08/2019 14:26:55 06/08/2006/08/2019 urina lysis , dipst ick, auto Unknown Analyte Trace Not Available [facility] [address] [facility] [address], [place], [address], 06/08/2019 14:26:55 06/08/2006/08/2019 urina lysis , dipst ick, auto Unknown Analyte Negati ve - Trace Not Available [facility] [address] [facility] [address], [place], [address], 06/08/2019 14:26:55 06/08/2006/08/2019 urina lysis , dipst ick, auto Unknown Analyte Normal Not Available [facility] [address] [place] [address] [address], [place], [address], 06/08/2019 14:26:55 06/08/2006/08/2019 urina lysis , dipst ick, auto Unknown Analyte Normal Not Available [facility] [address] [place] [address] [address], [place], [address], 06/08/2019 14:26:55 06/08/2006/08/2019 urina lysis , dipst ick, auto Unknown Analyte Negati ve Not Available [facility] [address], [place], [address], 06/08/2019 14:26:55 06/08/2006/08/2019 urina lysis , dipst ick, auto Unknown Analyte Negati ve Not Available [facility] [address] [facility] [address], [place], [address], 06/08/2019 14:26:55 06/08/2006/08/2019 urina lysis , dipst ick, auto Unknown Analyte Normal Not Available [facility] [address] [facility] [address], [place], [address], 06/08/2019 14:26:55 06/08/2006/08/2019 urina lysis , dipst ick, auto Unknown Analyte Normal - 1mg/dl Not Available [facility] [address] [facility] [address], [place], [address], 06/08/2019 14:26:55 06/08/2006/08/2019 urina lysis , dipst ick, auto Unknown Analyte Negati ve Not Available [facility] [address] [facility] [address], [place], [address], 06/08/2019 14:26:55 06/08/2006/08/2019 urina lysis , dipst ick, auto Unknown Analyte Negati ve Not Available [facility] [address] [facility] [address], [place], [address], 06/08/2019 14:26:55 06/08/2006/08/2019 urina lysis , dipst ick, auto Unknown Analyte Negati ve Not Available [facility] [address] [place] [address] [address], [place], [address], 06/08/2019 14:26:55 06/08/2006/08/2019 urina lysis , dipst ick, auto Unknown Analyte Negati ve Not Available [facility] [address], [place], [address], 06/08/2019 14:26:55 06/08/20 19 06/08/2019 urina lysis , dipst ick, auto Unknown Analyte Clean Catch Not Available [facility] [address], [place], [address], 06/08/2019 14:26:55 06/08/2006/08/2019 urina lysis , dipst ick, auto Unknown Analyte Automa román Not Available [facility] [address] [facility] [address], [place], [address], 06/08/2019 14:26:55 08/17/20 18 08/17/2018 urina lysis , dipst ick, auto Unknown Analyte Straw Not Available [facility] [address], [place], [address], 08/17/2018 09:52:16 08/17/20 18 08/17/2018 urina lysis , dipst ick, auto Unknown Analyte Clear Not Available [facility] [address] [place] [address] [address], [place], [address], 08/17/2018 09:52:16 08/17/20 18 08/17/2018 urina lysis , dipst ick, auto Unknown Analyte 1.010 Not Available [facility] [address], [place], [address], 08/17/2018 09:52:16 08/17/20 18 08/17/2018 urina lysis , dipst ick, auto Unknown Analyte 1.003 - 1.035 Not Available [facility] [address], [place], [address], 08/17/2018 09:52:16 08/17/20 18 08/17/2018 urina lysis , dipst ick, auto Unknown Analyte 5.0 Not Available [facility] [address], [place], [address], 08/17/2018 09:52:16 08/17/20 18 08/17/2018 urina lysis , dipst ick, auto Unknown Analyte 5.0 - 8.0 Not Available [facility] [address], [place], [address], 08/17/2018 09:52:16 08/17/20 18 08/17/2018 urina lysis , dipst ick, auto Unknown Analyte Negati ve Not Available [facility] [address], [place], [address], 08/17/2018 09:52:16 08/17/20 18 08/17/2018 urina lysis , dipst ick, auto Unknown Analyte Negati ve Not Available [facility] [address], [place], [address], 08/17/2018 09:52:16 08/17/20 18 08/17/2018 urina lysis , dipst ick, auto Unknown Analyte Negati ve Not Available [facility] [address], [place], [address], 08/17/2018 09:52:16 08/17/20 18 08/17/2018 urina lysis , dipst ick, auto Unknown Analyte Negati ve Not Available [facility] [address], [place], [address], 08/17/2018 09:52:16 08/17/20 18 08/17/2018 urina lysis , dipst ick, auto Unknown Analyte Negtiv e Not Available [facility] [address], [place], [address], 08/17/2018 09:52:16 08/17/20 18 08/17/2018 urina lysis , dipst ick, auto Unknown Analyte Negati ve - Trace Not Available [facility] [address], [place], [address], 08/17/2018 09:52:16 08/17/20 18 08/17/2018 urina lysis , dipst ick, auto Unknown Analyte 250 mg/dl Not Available [facility] [address], [place], [address], 08/17/2018 09:52:16 08/17/20 18 08/17/2018 urina lysis , dipst ick, auto Unknown Analyte Normal Not Available [facility] [address], [place], [address], 08/17/2018 09:52:16 08/17/20 18 08/17/2018 urina lysis , dipst ick, auto Unknown Analyte Negati ve Not Available [facility] [address], [place], [address], 08/17/2018 09:52:16 08/17/20 18 08/17/2018 urina lysis , dipst ick, auto Unknown Analyte Negati ve Not Available [facility] [address], [place], [address], 08/17/2018 09:52:16 08/17/20 18 08/17/2018 urina lysis , dipst ick, auto Unknown Analyte Normal Not Available [facility] [address], [place], [address], 08/17/2018 09:52:16 08/17/20 18 08/17/2018 urina lysis , dipst ick, auto Unknown Analyte Normal - 1mg/dl Not Available [facility] [address], [place], [address], 08/17/2018 09:52:16 08/17/20 18 08/17/2018 urina lysis , dipst ick, auto Unknown Analyte Negati ve Not Available [facility] [address], [place], [address], 08/17/2018 09:52:16 08/17/20 18 08/17/2018 urina lysis , dipst ick, auto Unknown Analyte Negati ve Not Available [facility] [address], [place], [address], 08/17/2018 09:52:16 08/17/20 18 08/17/2018 urina lysis , dipst ick, auto Unknown Analyte Negati ve Not Available [facility] [address], [place], [address], 08/17/2018 09:52:16 08/17/20 18 08/17/2018 urina lysis , dipst ick, auto Unknown Analyte Negati ve Not Available [facility] [address], [place], [address], 08/17/2018 09:52:16 08/17/20 18 08/17/2018 urina lysis , dipst ick, auto Unknown Analyte Clean Catch Not Available [facility] [address], [place], [address], 08/17/2018 09:52:16 08/17/20 18 08/17/2018 urina lysis , dipst ick, auto Unknown Analyte Automa román Not Available [facility] [address], [place], [address], 08/17/2018 09:52:16 08/12/20 18 08/12/2018 urina lysis , dipst ick, auto Unknown Analyte Yellow Not Available [facility] [address], [place], [address], 08/12/2018 13:34:52 08/12/20 18 08/12/2018 urina lysis , dipst ick, auto Unknown Analyte Clear Not Available [facility] [address], [place], [address], 08/12/2018 13:34:52 08/12/20 18 08/12/2018 urina lysis , dipst ick, auto Unknown Analyte 1.010 Not Available [facility] [address], [place], [address], 08/12/2018 13:34:52 08/12/20 18 08/12/2018 urina lysis , dipst ick, auto Unknown Analyte 1.003 - 1.035 Not Available [facility] [address], [place], [address], 08/12/2018 13:34:52 08/12/20 18 08/12/2018 urina lysis , dipst ick, auto Unknown Analyte 5.0 Not Available [facility] [address] [facility] [address], [place], [address], 08/12/2018 13:34:52 08/12/20 18 08/12/2018 urina lysis , dipst ick, auto Unknown Analyte 5.0 - 8.0 Not Available [facility] [address] [facility] [address], [place], [address], 08/12/2018 13:34:52 08/12/20 18 08/12/2018 urina lysis , dipst ick, auto Unknown Analyte 25 Kristal/ul Trace Not Available [facility] [address] [place] [address] [address], [place], [address], 08/12/2018 13:34:52 08/12/20 18 08/12/2018 urina lysis , dipst ick, auto Unknown Analyte Negati ve Not Available [facility] [address] [place] [address] [address], [place], [address], 08/12/2018 13:34:52 08/12/20 18 08/12/2018 urina lysis , dipst ick, auto Unknown Analyte Negati ve Not Available [facility] [address], [place], [address], 08/12/2018 13:34:52 08/12/20 18 08/12/2018 urina lysis , dipst ick, auto Unknown Analyte Negati ve Not Available [facility] [address], [place], [address], 08/12/2018 13:34:52 08/12/20 18 08/12/2018 urina lysis , dipst ick, auto Unknown Analyte Negtiv e Not Available [facility] [address], [place], [address], 08/12/2018 13:34:52 08/12/20 18 08/12/2018 urina lysis , dipst ick, auto Unknown Analyte Negati ve - Trace Not Available [facility] [address], [place], [address], 08/12/2018 13:34:52 08/12/20 18 08/12/2018 urina lysis , dipst ick, auto Unknown Analyte Normal Not Available [facility] [address], [place], [address], 08/12/2018 13:34:52 08/12/20 18 08/12/2018 urina lysis , dipst ick, auto Unknown Analyte Normal Not Available [facility] [address], [place], [address], 08/12/2018 13:34:52 08/12/20 18 08/12/2018 urina lysis , dipst ick, auto Unknown Analyte Negati ve Not Available [facility] [address], [place], [address], 08/12/2018 13:34:52 08/12/20 18 08/12/2018 urina lysis , dipst ick, auto Unknown Analyte Negati ve Not Available [facility] [address], [place], [address], 08/12/2018 13:34:52 08/12/20 18 08/12/2018 urina lysis , dipst ick, auto Unknown Analyte Normal Not Available [facility] [address], [place], [address], 08/12/2018 13:34:52 08/12/20 18 08/12/2018 urina lysis , dipst ick, auto Unknown Analyte Normal - 1mg/dl Not Available [facility] [address], [place], [address], 08/12/2018 13:34:52 08/12/20 18 08/12/2018 urina lysis , dipst ick, auto Unknown Analyte Negati ve Not Available [facility] [address], [place], [address], 08/12/2018 13:34:52 08/12/20 18 08/12/2018 urina lysis , dipst ick, auto Unknown Analyte Negati ve Not Available [facility] [address], [place], [address], 08/12/2018 13:34:52 08/12/20 18 08/12/2018 urina lysis , dipst ick, auto Unknown Analyte Negati ve Not Available [facility] [address], [place], [address], 08/12/2018 13:34:52 08/12/20 18 08/12/2018 urina lysis , dipst ick, auto Unknown Analyte Negati ve Not Available [facility] [address], [place], [address], 08/12/2018 13:34:52 08/12/20 18 08/12/2018 urina lysis , dipst ick, auto Unknown Analyte Clean Catch Not Available [facility] [address], [place], [address], 08/12/2018 13:34:52 08/12/20 18 08/12/2018 urina lysis , dipst ick, auto Unknown Analyte Automa román Not Available [facility] [address], [place], [address], 08/12/2018 13:34:52 12/13/19 22 12/12/2021 urina lysis panel , auto Unknown Analyte Clean Catch Not Available [facility] [address], [place], [address], 12/12/2021 14:27:59 12/13/19 22 12/12/2021 urina lysis panel , auto Unknown Analyte Yellow Not Available [facility] [address], [place], [address], 12/12/2021 14:27:59 12/13/19 22 12/12/2021 urina lysis panel , auto Unknown Analyte Clear Not Available [facility] [address], [place], [address], 12/12/2021 14:27:59 12/13/19 22 12/12/2021 urina lysis panel , auto Unknown Analyte 1.010 Not Available [facility] [address], [place], [address], 12/12/2021 14:27:59 12/13/19 22 12/12/2021 urina lysis panel , auto Unknown Analyte 1.003- 1.035 Not Available [facility] [address], [place], [address], 12/12/2021 14:27:59 12/13/19 22 12/12/2021 urina lysis panel , auto Unknown Analyte 6.0 Not Available [facility] [address], [place], [address], 12/12/2021 14:27:59 12/13/19 22 12/12/2021 urina lysis panel , auto Unknown Analyte 5.0-8. 0 Not Available [facility] [address], [place], [address], 12/12/2021 14:27:59 12/13/19 22 12/12/2021 urina lysis panel , auto Unknown Analyte Negati ve Not Available [facility] [address], [place], [address], 12/12/2021 14:27:59 12/13/19 22 12/12/2021 urina lysis panel , auto Unknown Analyte Negati ve Not Available [facility] [address], [place], [address], 12/12/2021 14:27:59 12/13/19 22 12/12/2021 urina lysis panel , auto Unknown Analyte Negati ve Not Available [facility] [address], [place], [address], 12/12/2021 14:27:59 12/13/19 22 12/12/2021 urina lysis panel , auto Unknown Analyte Negati ve Not Available [facility] [address], [place], [address], 12/12/2021 14:27:59 12/13/19 22 12/12/2021 urina lysis panel , auto Unknown Analyte Negati ve Not Available [facility] [address], [place], [address], 12/12/2021 14:27:59 12/13/19 22 12/12/2021 urina lysis panel , auto Unknown Analyte Negati ve Not Available [facility] [address], [place], [address], 12/12/2021 14:27:59 12/13/19 22 12/12/2021 urina lysis panel , auto Unknown Analyte >1000 mg/dl Not Available [facility] [address], [place], [address], 12/12/2021 14:27:59 12/13/19 22 12/12/2021 urina lysis panel , auto Unknown Analyte Normal Not Available [facility] [address], [place], [address], 12/12/2021 14:27:59 12/13/19 22 12/12/2021 urina lysis panel , auto Unknown Analyte Negati ve Not Available [facility] [address], [place], [address], 12/12/2021 14:27:59 12/13/19 22 12/12/2021 urina lysis panel , auto Unknown Analyte Negati ve Not Available [facility] [address], [place], [address], 12/12/2021 14:27:59 12/13/19 22 12/12/2021 urina lysis panel , auto Unknown Analyte Normal Not Available [facility] [address], [place], [address], 12/12/2021 14:27:59 12/13/19 22 12/12/2021 urina lysis panel , auto Unknown Analyte Normal 1 mg/dl Not Available [facility] [address], [place], [address], 12/12/2021 14:27:59 12/13/19 22 12/12/2021 urina lysis panel , auto Unknown Analyte Negati ve Not Available [facility] [address], [place], [address], 12/12/2021 14:27:59 12/13/19 22 12/12/2021 urina lysis panel , auto Unknown Analyte Negati ve Not Available [facility] [address], [place], [address], 12/12/2021 14:27:59 12/13/19 22 12/12/2021 urina lysis panel , auto Unknown Analyte Negati ve Not Available [facility] [address], [place], [address], 12/12/2021 14:27:59 12/13/19 22 12/12/2021 urina lysis panel , auto Unknown Analyte Negati ve Not Available [facility] [address], [place], [address], 12/12/2021 14:27:59 Result Notes None recorded. Problems No Known Problems Procedures Surgical History Date Name Laterality Status Provider Name and Address Organization Details Recorded Time 018 PNE Implantation; Sacral Nerve completed Yennifer Velazco [facility] 08/19/2018 14:10:27 018 Uroflowmetry; Complex completed [facility] 08/12/2018 12:01:40 018 Urodynamics Interpretation completed [facility] 08/12/2018 12:01:43 018 Urodynamics completed [facility] 08/12/2018 12:06:22 Cholecystectomy completed [facility] 08/12/2018 13:31:59 Hysterectomy completed [facility] 08/12/2018 13:32:10 Other completed [facility] 08/12/2018 13:33:48 Imaging Results None recorded. Procedure [...] Updated DateTime 12/12/2021 165.1 cm 34.9 kg/m2 09831.4 g Juju Hart [facility] 12/12/2021 14:27:21 Date Recorded Body height Body mass index (BMI) Body weight Heart rate Systolic And Diastolic Provider Name and Address Organization Details Last Updated DateTime 06/08/2019 165.1 cm 34.9 kg/m2 80935.4 g 79 /min 127/84 mm[Hg] Yennifer Meyersford [facility] 9 14:25:15 Date Recorded Body height Body mass index (BMI) Body weight Heart rate Systolic And Diastolic Provider Name and Address Organization Details Last Updated DateTime 07/25/2019 165.1 cm 34.9 kg/m2 89494.4 g 79 /min 126/88 mm[Hg] Briana Thrope [facility] 07/25/2019 15:01:56 Social History Question Answer Notes LastModified by Organizat ion Details LastModified Time Tobacco Smoking Status [facility]/11[facility]2018 09:43:36 How Much Tobacco Do You [...] by Organization Details LastModified Time Father Arthritis [email or web address] Not availab le 01/11/2018 09:44:04 Father Kidney disease [email or web address] Not available 2017 09:44:13 Mother Hypertensive disorder [email or web address] Not available 2017 09:44:30 Medical History Condition [...] Y Immune System Disorder N Heart Attack ([place]) N Mental Illness N Neurological Problems N Diabetes Y Seizures/Epilepsy N Sleep Apnea Y Hypertension N Osteoporosis N Gynecological HistoryNo gynecological history recorded. Obstetrics History GPAL:G 0 P 0 0 0 0 Past Encounters Encounter ID Performer Location Encounter Start Date Encounter Closed Date Diagnosis/Indication Diagnosis SNOMED-CT Code Diagnosis ICD10 Code Diagnosis IMO Codes Diagnosis Note [id number] ARACELI FREGOSO MD [facility] [address] [place] [address] 01/11/2018 09:24:25 01/11/2018 12:56:20 Pain in left knee 0856840651 41611 M25.562 Knee pain 82945175 M25.5 62 [id number] ARACELI FREGOSO MD [facility] [address] [place] [address] 02/15/2018 10:05:26 02/15/2018 12:58:12 Contusion of left knee 4311515342 [id number] S80.02XD [id number] MD [facility] [address] [place] [address],[place] [address] 08/12/2018 10:12:32 08/12/2018 11:05:45 Urinary incontinence 018851069 R32 Patient demonstrat es bladder instabilit y with uninhibite d contractio ns stimulated throughout the filling phase with Valsalva. At capacity she demonstrat ed uninhibite d contractio ns with incontinen ce. She also demonstrat ed stress incontinen ce at capacity. [id number] MD [facility] [address] [facility] [place] [address] 08/12/2018 10:18:32 08/12/2018 13:53:18 Urge incontinence of urine 05125262 N39.41 As above Female uri nary stress incontinence 16000187 N39.3 As above [id number] JOMAR RAGSDALE MD [facility] [address] [place] [address] RD,[address] [place] [address] 08/17/2018 09:25:04 08/17/2018 10:24:18 Urge incontinence of urine 38503585 N39.41 Urgent nan chloé to urinate 86530839 R39.15 [id number] JOMAR RAGSDALE MD [facility] [address] [place] [address] RD,[address] [place] [address] 08/19/2018 09:35:58 08/19/2018 10:59:30 Urge incontinence of urine 07914806 N39.41 [id number] JOMAR RAGSDALE MD [facility] [address] [place] [address] RD,[place] [address] 08/23/2018 15:38:43 08/23/2018 16:47:38 Urge incontinence of urine 88637062 N39.41 [id number] JOMAR RAGSDALE MD SURGERY SCHEDULE [address] [place] [address] 09/05/2018 08:01:21 09/05/2018 08:02:27 Urge incontinence of urine 42244443 N39.41 [id number] MD [facility]ADDY [facility] [address] [place] [address] RD,[place] [address] 06/08/2019 13:28:42 06/08/2019 14:36:11 Urge incontinence of urine 63261069 N39.41 Nocturia 917695695 R35.1 [id number] JOMAR RAGSDALE MD SURGERY SCHEDULE [address] [place] [address] 07/10/2019 06:24:04 07/10/2019 06:25:04 Urgent desire to urinate 19429364 R39.15 [id number] JOMAR RAGSDALE MD [facility] [address] [place] [address] RD,[place] [address] 0 07/25/2019 14:23:37 07/25/2019 15:10:30 Urge incontinence of urine 56607085 N39.41 [id number] JOMAR RAGSDALE MD [facility] [address] [place] [address] 12/12/2021 13:50:33 12/12/2021 14:42:57 Abdominal pain 13010292 R10.9 Urgent nan chloé to urinate 95736040 R39.15 Health Concerns Section Related Observation LastModified by Organization Detai ls LastModified Time None Recorded Concern Status LastModified by Organization Details LastModified Time None Recorded Advance Directives Directive None Recorded Payers Insurance Date Sequence Insurance Name Policy Number Policy Britton Covered Member ID Britton Member ID Guarantor Name 01/11/2018 [employer] [facility] Manisha Leija 07/31/2020 1 [facility] [id number] Riley Leija [id number] Manisha Leija 12/08/2021 [employer] (MOVED TO HOLD) Manisha Leija 12/12/2021 1 [id number]) [id number] Riley Leija [id number] Manisha Leija 12/16/2021 1 [employer] [id number] Manisha Leija [id number] Manisha Leija Notes Date Note Type Note Provider Name and Address Organization Details Recorded Time 09/05/2018 text/html procedure was canceled due to elevated blood sugar JOMAR RAGSDALE [facility] [place], [address], [facility] 09/07/2018 10:27:48 06/08/2019 text/html she has been [...] was 0-1 time [place], [address], [facility] 06/08/2019 17:12:58 07/25/2019 text/html she is back following the InterStim placement. The incisions are healing without any sign of infection. She is not having any urge incontinence. There is no significant frequency. 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 She continues to have difficulty we will cystoscope JOMAR RAGSDALE MD [address] [place], [address], [facility] 12/12/2021 14:55:46 OBGyn Episode No OBEpisode recorded.
--- OUTSIDE RECORDS SUMMARY | 2025-07-13 11:16 | XMS_ITS | Encounter Summary ---
Author Organization Healthcare Address [address] [place] [address] Care Team Providers Care Staffing Operations Manager Name Role Phone Alissa Faria APRN Primary Care Provider [phone] Encounter Details Date Type Department Care Team (Late st Contact Info) Description 07/04/2025 Telephone [facility] [address] [place] [address] Aleyda Haji, RN [facility]-V[facility]ULAR [facility] INTERVENTIONAL RADIOLOGY Social History Tobacco Use Types Packs/Day Years [...] encounter Miscellaneous Notes * Telephone Encounter - Aleyda Haji RN - 07/12/2025 2:21 PM EST Spoke with patient--stated that she would get labs done tomorrow. Adv I would check with [facility] next week. * Telephone Encounter - Aleyda Haji RN - 07/04/2025 9:46 AM EDT Faxed lab orders to [facility] at fax [phone]. * Telephone Encounter - Aleyda Haji RN - 07/04/2025 9:43 AM EDT Spoke with patient, adv that we need labs 1mo after starting ASA. Pt requested to have lab orders sent to [facility]. Adv to let us know once labs are done so we can request results, pt verbalized understanding. * Telephone Encounter - Aleyda Haji RN - 07/04/2025 9:40 AM EDT ----- Message from Vane Lim APRN sent at 06/27/2025 11:29 AM EDT ----- Please send one month lab work to patient preferred facility documented in this encounter Plan of Treatment Upcoming Encounters Date Type Department Care Team (Late st Contact Info) Description 09/14/2025 2:20 PM EST Office Visit [facility] Medicine Specialties [address] [place] [address] Vane Lim APRN [address] [place] [address] 09/21/2025 12:20 PM EST Office Visit [facility] Endocrinology [address] [place] [address] Nkechi Celeste APRN [address] [place] [address] documented as of this encounter [...] documented as of this encounter Care Teams Staffing Operations Manager Relationship Specialty Start Date End Date Alissa Faria APRN [address] [place] [address] PCP - General 04/17/24 documented as of this encounter
--- OUTSIDE RECORDS SUMMARY | 2025-07-13 11:16 | XMS_ITS | Encounter Summary ---
Author Organization [facility] Address [address] [place] [address] Care Team Providers Care Triple Valve Mechanic Name Role Phone Alissa Faria APRN Primary Care Provider [phone] Encounter Details Date Type Department Care Team [...] Description 09/14/2025 2:20 PM EST Office Visit [facility] [address] [place] [address] Vane Lim, VAN LOADER [address] [place] [address] 09/21/2025 12:20 PM EST Office Visit [facility] Endocrinology [address] [place] [address] Nkechi Celeste, VAN LOADER [address] [facility] [address] [place] [address] documented as of this encounter Visit Diagnoses [...] documented as of this encounter Care Teams Triple Valve Mechanic Relationship Specialty Start Date End Date Alissa Faria APRN [address] [place] [address] PCP - General 04/17/24 documented as of this encounter
[2025-07-13 11:32] LABS: Hematocrit 41.5 % (37.0-47.0); Hemoglobin 14.1 g/dL (12.2-16.2); Immature Granulocytes % 0.4 %; Mean Corpuscular HGB Conc 34.0 g/dL (31.8-35.4); Mean Corpuscular Hemoglobin 26.5 pg (27.0-31.2); Mean Corpuscular Volume 77.9 fl (81-99); Nucleated Red Blood Cells % 0 %; Platelet Count 171 K/mm3 (142-424); Red Blood Count 5.33 M/mm3 (4.20-5.40); Red Cell Distribution Width-SD 40.0 fL; White Blood Count 6.8 K/mm3 (4.8-10.8)
[2025-07-13 12:12] LABS: Alanine Aminotransferase 43 U/L (12-78); Albumin Level 4.3 g/dl (3.5-5.0); Alkaline Phosphatase 123 U/L (38-126); Aspartate Amino Transferase 45 U/L (14-36); Bilirubin,Direct 0.2 mg/dl (0.0-0.4); Bilirubin,Indirect 0.4 mg/dL (0.0-0.9); Bilirubin,Total 0.6 mg/dl (0.2-1.3); Bilirubin,Unconjugated 0.4 mg/dL (0.0-1.1); Creatinine,Serum 0.90 mg/dl (0.52-1.04); Estimated Glomerular Filt Rate 65 ml/min (>60); GFR (African American) 79 ML/MIN (>60); Total Protein,Serum 7.6 g/dl (6.3-8.2)
== END 2025-07-13 23:59 | disposition home or self-care (01) ==
LOC: LAB 11:14
PROVIDERS: PCP Family Medicine; Visit Provider Nurse Practitioner Family
DX: D68.61 Antiphospholipid syndrome (principal); Z79.899 Other long term (current) drug therapy
CPT/HCPCS: 36415; 80076; 82565; 85025

== ENCOUNTER 2025-07-16 08:55 | Outpatient (CLI) | payer BC, SELFPAY ==
--- OUTSIDE RECORDS SUMMARY | 2025-06-01 11:40 | XMS_ITS | Encounter Summary ---
Author Organization [facility] Address [address] [place] [address] Care Team Providers Care School Fundraising Director Name Role Phone Gustavo Fariaica WILTON Primary Care Provider [phone] Reason for Referral * Medications - Closed Specialty Diagnoses / Procedures Referred By Tay chatterjee Referred To Contact Diagnoses Type 2 diabetes mellitus with other specified complication, unspecified whether nursing home insulin use Nkechi Celeste APRN [address] [address] Phone: tel: fax: Referral ID Status Reason Start Date Expiration Date Visits Re quested Visits Authorized [id number] Closed 1 1 * Medications - Closed Specialty Diagnoses / Procedures Referred By Tay chatterjee Referred To Contact Diagnoses Type 2 diabetes mellitus with other specified complication, unspecified whether nursing home insulin use Nkechi Celeste APRN [address] [address] Phone: tel: fax: Referral ID Status Reason Start Date Expiration Date Visits Re quested Visits Authorized [id number] Closed 1 1 * Medications - Closed Specialty Diagnoses / Procedures Referred By Tay chatterjee Referred To Contact Diagnoses Type 2 diabetes mellitus with other specified complication, unspecified whether glass cleaner insulin use Nkechi Celeste APRN [address] [address] Phone: tel: fax: Referral ID Status Reason Start Date Expiration Date Visits Re quested Visits Authorized [id number] Closed 1 1 * Consultation (Routine) - Authorized Specialty Diagnoses / Procedures Referred By Tay chatterjee Referred To Contact Diagnoses Type 2 diabetes mellitus with other specified complication, unspecified whether nursing home insulin use Nkechi Celeste APRN [address] [address] Phone: tel: fax: Referral ID Status Reason Start Date Expiration Date V isits Requested Visits Authorized [id number] Authorized 06/01/2025 12/01/2026 1 1 Reason for Visit * Reason Comments Diabetes * Consultation (Routine) - Closed Specialty Diagnoses / Procedures Referred By Tay chatterjee Referred To Contact Diagnoses Type 2 diabetes mellitus with other specified complication, unspecified whether nursing home insulin use Nkechi Celeste APRN [address] [address] Phone: tel: fax: Referral ID Status Reason Start Date Expiration Date Visits Re quested Visits Authorized [id number] Closed 03/02/2025 09/01/2026 1 1 Encounter Details Date Type Department Care Team (Late st Contact Info) Description 06/01/2025 12:40 PM EDT Office Visit [facility] [address] [place] [address] Nkechi Celeste APRN [address] [address] Type 2 diabetes mellitus with other specified complication, unspecified whether glass cleaner insulin use ([facility]) (Primary Dx); Neuropathy; Hyperlipidemia, unspecified hyperlipidemia type; [...] per day Current exercise: walking works at [employer] CGM data review: Dexcom Dates: 05/15/2025-05/28/2025 Data: [...] (H) No results found for: CPEPTIDE , [id number] , ZNT8A , NTIB The following portions [...] mellitus with other specified complication, unspecified whether glass cleaner insulin use ([facility]) - POCT glycosylated hemoglobin (Hb A1C) - Follow Up [facility]; Future - tirzepatide (Mounjaro) 7.5 MG/0.5ML solution auto-injector solution pen- injector; Inject 0.5 mL under the skin 1 time per week. - glipiZIDE (Glucotrol) 10 MG tablet; Take 1 tablet by mouth daily before breakfast. - Continuous Glucose Transmitter (Dexcom G6 transmitter) [facility]; Use as instructed with Dexcom G6 sensor, change every 90 days - Continuous Glucose Sensor (Dexcom G6 Sensor) misc; 1 sensor every 10 days. - insulin glargine (Lantus SoloStar) 100 UNIT/ML injection pen; INJECT 40 UNITS SUBCUTANEOUSLY AT BEDTIME. TITRATE DIRECTED. MAX DAILY DOSE OF 75 UNITS Neuropathy Hyperlipidemia, unspecified hyperlipidemia type Obesity (BMI 30-39.9) Other orders - Follow Up [facility] Diabetes Mellitis Type 2, is controlled. Patient [...] care. Electronically signed by: Nkechi Celeste APRN [facility] [address] [facility]. [address] [place]. [address] PHONE [phone] FAX: [phone] documented in this encounter Plan of Treatment Upcoming Encounters Date Type Department Care Team (Late st Contact Info) Description 09/14/2025 2:20 PM EST Office Visit [facility] Medicine Specialties [address] [place] [address] Vane Lim APRN [address] [place] [address] 09/21/2025 12:20 PM EST Office Visit [facility] [address] [place] [address] Nkechi Celeste APRN [address] [facility] [address] [place] [address] Scheduled Referrals Name Type Priority Associated Diagnoses Orde r Schedule Follow Up [facility] Outpatient Referral Routine Type 2 diabetes mellitus with other specified complication, unspecified whether glass cleaner insulin use ([facility]) Expected: 08/31/2025, Expires: 12/03/2026 documented as of this encounter Procedures Procedure Name Priority Date/Time Associated Diagnosis Comments POCT GLYCOSYLATED HEMOGLOBIN (HGB A1C) Routine 06/01/2025 12:47 PM EDT Type 2 diabetes mellitus with other specified complication, unspecified whether glass cleaner insulin use ([facility]) documented in this encounter Results * POCT glycosylated hemoglobin (Hb A1C) (06/01/2025 12:47 PM EDT) POCT Hemoglobin A1C 6.8 <5.7% Non-Diabet ic % [facility] Kit Lot Number [id number] [facility] Kit Expiration Date 04/2027 [facility] Blood Venous blood specimen / Unknown 06/01/2025 12:47 PM EDT Nkechi Celeste INTELLECTUAL PROPERTY MANAGER POINT OF CARE TEST ENTER /EDIT ORDERABLES Final Result [facility] [address] [place] [address] documented in this encounter Visit Diagnoses Diagnosis Type 2 diabetes mellitus with other specified complication, unspecified whether glass cleaner insulin use- Primary Neuropathy Mononeuritis of unspecified site Hyperlipidemia, unspecified hyperlipidemia type Obesity (BMI 30-39.9) documented in this encounter Additional Health Concerns Assessment Noted Time A fall risk assessment has been complete d for the patient 06/09/2024 10:35 AM EDT A Body Mass Index follow-up plan has been documented for the patient 06/01/2025 2:51 PM EDT documented as of this encounter Care Teams School Fundraising Director Relationship Specialty Start Date End Date Alissa Faria APRN [address] [place] [address] PCP - General 04/17/24 documented as of this encounter
--- OUTSIDE RECORDS SUMMARY | 2025-06-08 09:30 | XMS_ITS | Encounter Summary ---
Author Organization [facility] Address [address] [place] [address] Care Team Providers Care Rn Clinical Coordinator Name Role Phone Alissa Faria WILTON Primary Care Provider [phone] Reason for Visit * Reason Comments Antiphospholipid antibody syndrome (CMS/ HCC Encounter Details Date Type Department Care Team (Latest Contact Info) Description 06/08/2025 10:30 AM EDT Office Visit [facility] [address] [place] [address] Josefa Lim APRN [address] [place] [address] Antiphospholipid antibody syndrome (CMS/HCC) (Primary [...] patient will be having a EGD in [place] by 12/23/23. The patient does not have [...] hx of TB. 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 Rheum medication hx: ASA 325 [...] file Social Connections: Unknown (06/14/2023) Received from [facility] Family and Community Support Help with Day-to-Day Activities: Not on file Lonely or Isolated: Not on file Intimate Partner Violence: Unknown (06/14/2023) Received from [facility] Abuse Screen Unsafe at Home or Work/School: Not on file Feels Threatened by Someone?: Not on file Does Anyone Keep You from Contacting Others or Doint Things Outside the Home?: Not on file Physical Sign of Abuse Present: Not on file Housing Stability: Unknown (06/14/2023) Received from [facility] Housing Stability Current Living Arrangements: Not on [...] Differential Creatinine, Plasma Hepatic Function Panel aspirin (Codewars Aspirin) 325 MG tablet Antinuclear Antibody (JOAN), HEp-2, IgG Double-Stranded DNA (dsDNA) Antibody, IgG by IFA C3 Complement C4 Complement ENAI ENAII Protein, Random, Urine with Creatinine Chambers (RANDA) Antibody, IgG Thyroid Peroxidase Antibody Creatinine, Random, Urine Urinalysis with reflex microscopic (Culture NOT Included) 2. Positive JOAN (antinuclear antibody) CBC and Differential Creatinine, Plasma Hepatic Function Panel aspirin (Codewars Aspirin) 325 MG tablet Antinuclear Antibody (JOAN), HEp-2, IgG Double-Stranded DNA (dsDNA) Antibody, IgG by IFA C3 Complement C4 Complement ENAI ENAII Protein, Random, Urine with Creatinine Chambers (RANDA) Antibody, IgG Thyroid Peroxidase Antibody Creatinine, Random, Urine Urinalysis with reflex microscopic (Culture NOT Included) 3. Psoriasis, unspecified CBC and Differential Creatinine, Plasma Hepatic Function Panel aspirin (Codewars Aspirin) 325 MG tablet Antinuclear Antibody (JOAN), HEp-2, IgG Double-Stranded DNA (dsDNA) Antibody, IgG by IFA C3 Complement C4 Complement ENAI ENAII Protein, Random, Urine with Creatinine Chambers (RANAD) Antibody, IgG Thyroid Peroxidase Antibody Creatinine, Random, [...] Differential Creatinine, Plasma Hepatic Function Panel aspirin (Codewars Aspirin) 325 MG tablet Antinuclear Antibody (JOAN), [...] dRVVT assays -Rx ASA 325 mg-Will prevent CVA/ID -Educated that on a long plane/car ride at high risk of stroke/ID (get up and moved every couple ofhours)-will [...] GLU 500/small leuk; JOAN, DsDNA, C2, C4, RANDA I & II,chambers RANDA, UA, urine protein/crea normal -JOAN-, Chambers-, ELECTRIC POWER LINE REPAIRER-, SSA-, SSB-, centromere ab- at PCP -Rheumatological [...] and is currently seeing Dr. Motley at [facility] -Crea 1.10, GFR 52--current 06/08/25 GFR 94.4, [...] negative 12/28 -CBC, Crea, hepatic panel (reviewed 07/13/25-Safe to continue medication at thsi time. will proceed with ASA with caution) RTC [...] Date BLADDER SURGERY N/A Bladder Surgery from [facility] GALLBLADDER SURGERY N/A Anastomosis Of Gallbladder from [facility] HYSTERECTOMY N/A Hysterectomy from [facility] OTHER SURGICAL HISTORY N/A Exploratory Laparoscopy from [facility] WISDOM TOOTH EXTRACTION N/A Oral Surgery Tooth Extraction Hathorne Tooth from [facility] [3] Family History Problem Relation Name Age of Onset Stroke Other Diabetes Other Hypertension Other Other cancer Other Multiple sclerosis Maternal Cousin Rheum arthritis Father Conrad [place] Diabetes Father Conrad [place] Autoimmune disease Father Conrad [place] rhuematoid arthritis Kidney disease Mother jessica de paz kidney disease Asthma Maternal Grandmother jessica stark Autoimmune disease Maternal Grandmother jessica stark asthma Autoimmune disease Paternal Grandmother Pamela zandra cancer Autoimmune disease Father's Brother Warren Zandra cancer [4] Allergies Allergen Reactions Metformin Nausea [...] hr tablet cholecalciferol (Vitamin D-3) 1.25 MG (46770 UT) capsule TAKE 1 CAPSULE Weekly clobetasol [...] daily. 90 tablet 3 ergocalciferol 1.25 MG (89456 UT) capsule furosemide (Lasix) 80 MG tablet [...] Description 09/14/2025 2:20 PM EST Office Visit [facility] [address] [place] [phone] Josefa Lim APRN [address] [place] [address] 09/21/2025 12:20 PM EST Office Visit [facility] Jim[facility] Endocr[facility]ology [address] [place] [phone] Nkechi Celeste APRN [address] [facility] [address] [place] [phone] documented as of this encounter Results * Hepatic Function Panel (07/13/2025 4:43 PM EST) Blood Venous blood specimen / Unknown Josefa Lim APRN LAB BLOOD ORDERABLES Final Result [facility] [address] [place] [address] * Creatinine, Plasma (07/13/2025 4:43 PM EST) Blood Venous blood specimen / Unknown Josefa Lim FLYING SQUAD WORKER LAB BLOOD ORDERABLES Final Result Performing Organization Address [facility] Co de Phone Number [facility] [address] [place] [address] * CBC and Differential (07/13/2025 4:35 PM EST) Blood Venous blood specimen / Unknown Josefa Lim FLYING SQUAD WORKER LAB BLOOD ORDERABLES Final Result Performing Organization Address [facility] Co de Phone Number [facility] [address] [place] [address] * (ABNORMAL) Urinalysis with reflex microscopic (Culture NOT Included) (06/08/2025 11:57 AM EDT) Color, Urine Yellow LAB URINALYSIS - AUTOMATED METHOD 06/08/2025 1:43 PM EDT [facility] Clarity, Urine Clear LAB URINALYSIS - AUTOMATED METHOD 06/08/2025 1:43 PM EDT [facility] Spec Maceo, Urine 1.030 1.005 - 1.030 LAB URINALYSIS - AUTOMATED METHOD 06/08/2025 1:43 PM EDT [facility] pH, Urine 5.5 5.0 - 8.0 LAB URINALYSIS - AUTOMATED METHOD 06/08/2025 1:43 PM EDT [facility] Protein, Urine Negative Negative mg/dL LAB URINALYSIS - AUTOMATED METHOD 06/08/2025 1:43 PM EDT [facility] Glucose, Urine 500(A) Negative mg/dL LAB URINALYSIS - AUTOMATED METHOD 06/08/2025 1:43 PM EDT [facility] Ketones, Urine Trace(A) Negative mg/dL LAB URINALYSIS - AUTOMATED METHOD 06/08/2025 1:43 PM EDT [facility] Blood, Urine Negative Negative LAB URINALYSIS - AUTOMATED METHOD 06/08/2025 1:43 PM EDT [facility] Bilirubin, Urine Negative Negative LAB URINALYSIS - AUTOMATED METHOD 06/08/2025 1:43 PM EDT [facility] Urobilinogen, Urine 0.2 0.2 to 1.0 mg/dL LAB URINALYSIS - AUTOMATED METHOD 06/08/2025 1:43 PM EDT [facility] Leukocytes, Urine Small(A) Negative LAB URINALYSIS - AUTOMATED METHOD 06/08/2025 1:43 PM EDT [facility] Nitrite, Urine Negative Negative LAB URINALYSIS - AUTOMATED METHOD 06/08/2025 1:43 PM EDT [facility] RBC, Urine 1 0 to 3 /HPF LAB URINALYSIS - AUTOMATED METHOD 06/08/2025 1:43 PM EDT [facility] WBC, Urine 0 - 5 0 to 5 /HPF LAB URINALYSIS - AUTOMATED METHOD 06/08/2025 1:43 PM EDT [facility] Squamous Epithelial Cells 3 - 5 0 to 5 /HPF LAB URINALYSIS - AUTOMATED METHOD 06/08/2025 1:43 PM EDT [facility] Hyaline Casts 0 - 2 0 to 5 /LPF LAB URINALYSIS - AUTOMATED METHOD 06/08/2025 1:43 PM EDT [facility] Bacteria, Urine Present Negative LAB URINALYSIS - AUTOMATED METHOD 06/08/2025 1:43 PM EDT [facility] Urine Urine specimen obtained by clean catch procedure / Unknown Non-blood Collection / Unknown 06/08/2025 11:57 AM EDT 06/08/2025 11:57 AM EDT us Josefa Lim FLYING SQU[employer] WORKER LAB URINE ORDERABLES Final Result [facility] [address] [place] [address] * Thyroid Peroxidase Antibody (06/08/2025 11:57 AM EDT) Thyroid Peroxidase Antibody <5 <=8 IU/mL 06/08/2025 4:18 PM EDT [facility] Blood Venous blood specimen / Unknown Venipuncture / Unknown 06/08/2025 11:57 AM EDT 06/08/2025 11:57 AM EDT us Josefa Lim FLYING SQU[employer] WORKER LAB BLOOD ORDERABLES Final Result [facility] [address] [place] [address] * Chambers (RANDA) Antibody, IgG (06/08/2025 11:57 AM EDT) Chambers (RANDA) Antibody, IgG 4 0 - 40 AU/mL 06/10/2025 3:57 PM EDT [facility] [employer] (JAIDEN) Serum 06/08/2025 11:5 7 AM EDT 06/08/2025 11:57 AM EDT Narrative [facility] (JAIDEN) - 06/10/2025 3:57 PM EDT INTERPRETIVE INFORMATION: [...] associations with SLE clinical manifestations. Performed By: [facility] [address] [place], [place] [id number] Hot Die Picker: Chaz Marcelo MD, PhD CLIA Number: [id number] Josefa Lim APRN LAB REF LAB BLOOD AND FLUI D ORD Final Result Performing Organization Address City/[facility]/ZIP Co de Phone Number [facility] [employer] [facility]) [address] [place] [address] * Protein, Random, Urine with Creatinine (06/08/2025 11:57 AM EDT) Protein, Urine 14 mg/dL 06/08/2025 1:51 PM EDT [facility] Creatinine, Urine 138 mg/dL 06/08/2025 1:51 PM EDT [facility] Protein/Creatin ine Ratio 0.1 mg/mg Creat 06/08/2025 1:51 PM EDT [facility] Urine Urine specimen obtained by clean catch procedure / Unknown Non-blood Collection / Unknown 06/08/2025 11:57 AM EDT 06/08/2025 11:57 AM EDT us Josefa Kiera Lim FLYING SQUAD WORKER LAB URINE ORDERABLES Final Result [facility] [address] [place] [address] * ENAII (06/08/2025 11:57 AM EDT) SSA-52 (RO52) (RANDA) Antibody, IgG 2 0 - 40 AU/mL 06/12/2025 10:00 AM EDT [facility] ([employer]) SSA-60 (RO60) (RANDA) Antibody, IgG 1 0 - 40 AU/mL 06/12/2025 10:00 AM EDT [facility] ([employer]) SSB (LA) (RANDA) Antibody, IgG 1 0 - 40 AU/mL 06/12/2025 10:00 AM EDT [facility] ([employer]) Blood Venous blood specimen / Unknown Venipuncture / Unknown 06/08/2025 11:57 AM EDT 06/08/2025 11:57 AM EDT Narrative [facility] ([employer]) - 06/12/2025 10:00 AM EDT INTERPRETIVE INFORMATION: [...] (PSS) also have this antibody. Performed By: [facility] [address] [place] [id number] Hot [employer] Picker: Chaz Marcelo MD, PhD CLIA Number: [id number] us Josefa Lim FLYING SQUAD WORKER LAB BLOOD ORDERABLES Final Result [facility]) [address] [place] [address] * ENAI (06/08/2025 11:57 AM EDT) Chambers/ELECTRIC POWER LINE REPAIRER (RANDA) Ab, IgG 4 0 - 19 Units 06/12/2025 10:59 PM EDT [facility] ([employer]) Blood Venous blood specimen / Unknown Venipuncture / Unknown 06/08/2025 11:57 AM EDT 06/08/2025 11:57 AM EDT Narrative [facility]) - 06/12/2025 10:59 PM EDT INTERPRETIVE INFORMATION: Chambers/ELECTRIC POWER LINE REPAIRER (RANDA) Antibody, IgG 19 Units or Less ............. Negative 20 to 39 Units ............... Weak Positive 40 to 80 Units ............... Moderate Positive 81 Units or greater .......... Strong Positive Chambers/ELECTRIC POWER LINE REPAIRER antibodies are frequently seen in patients with mixed connective tissue disease (MCTD) and are also associated with other systemic autoimmune rheumatic diseases (SARDs) such as systemic lupus erythematosus (SLE), systemic sclerosis, and myositis. Antibodies targeting the Chambers/ELECTRIC POWER LINE REPAIRER antigenic complex also recognize Chambers antigens, therefore, the Chambers antibody response must be considered when interpreting these results. Performed By: [facility] [address] [place] [address] Hot Die Picker: Chaz Marcelo MD, PhD CLIA Number: [id number] Josefa Lim APRN LAB BLOOD ORDERABLES Final Result Performing Organization Address City/[facility] Co de Phone Number [facility] (JAIDEN) [address] [place], [place] [id number] * C4 Complement (06/08/2025 11:57 AM EDT) C4 Complement 15 13 - 36 mg/dL 06/08/2025 3:33 PM EDT [facility] Blood Venous blood specimen / Unknown Venipuncture / Unknown 06/08/2025 11:57 AM EDT 06/08/2025 11:57 AM EDT Josefa Lim APRN LAB BLOOD ORDERABLES Final Result Performing Organization Address City/[facility] Co de Phone Number [facility] [address] [place] [address] * C3 Complement (06/08/2025 11:57 AM EDT) C3 Complement 126 84 - 166 mg/dL 06/08/2025 3:33 PM EDT [facility] Blood Venous blood specimen / Unknown Venipuncture / Unknown 06/08/2025 11:57 AM EDT 06/08/2025 11:57 AM EDT Josefa Lim APRN LAB BLOOD ORDERABLES Final Result Performing Organization Address City/[facility] Co de Phone Number [facility] [address] [place] [address] * Double-Stranded DNA (dsDNA) Antibody, IgG by IFA (06/08/2025 11:57 AM EDT) Double-Strande d DNA (dsDNA) Ab IgG IFA <1:10 <1:10 06/14/2025 12:26 AM EDT [facility] (JAIDEN) Blood Venous blood specimen / Unknown Venipuncture / Unknown 06/08/2025 11:57 AM EDT 06/08/2025 11:57 AM EDT Narrative [facility] RADHA) - 06/14/2025 12:26 AM EDT INTERPRETIVE INFORMATION: [...] recommendations for testing may be found at [email or web address]. Performed By: [facility] [address] [place] [id number] Hot Die Picker: Chaz Marcelo MD, PhD CLIA Number: [id number] us Josefa Lim FLYING SQUAD WORKER LAB BLOOD ORDERABLES Final Result [facility]) [address] [place] [address] * Antinuclear Antibody (JOAN), HEp-2, IgG (06/08/2025 11:57 AM EDT) JOAN INTERPRETIVE COMMENT See Note 06/12/2025 2:44 PM EDT [facility] (JAIDEN) Anti Nuc Ab Screen <1:80 <1:80 06/12/2025 2:44 PM EDT [facility] HER[facility]N GARCIA) Blood Venous blood specimen / Unknown Venipuncture / Unknown 06/08/2025 11:57 AM EDT 06/08/2025 11:57 AM EDT Narrative [facility] GARCIA) - 06/12/2025 2:44 PM EDT Clinical Interpretation: [...] not necessarily rule out SARD. Performed By: [facility] [address] [place] [id number] Hot [employer] Picker: Chaz Marcelo MD, PhD CLIA Number: [id number] Josefa Lim FLYING SQUAD WORKER LAB BLOOD ORDERABLES Final Result [facility] HERNA[facility] GARCIA) [address] [place] [address] * (ABNORMAL) Hepatic Function Panel (06/08/2025 11:57 AM EDT) Direct Bilirubin, Plasma <0.2 <=0.3 mg/dL 06/08/2025 2:08 PM EDT [facility] Alkaline Phosphatase, Plasma 105(H) 35 - 104 U/L 06/08/2025 2:08 PM EDT [facility] Total Bilirubin, Plasma 0.4 0.2 - 1.1 mg/dL 06/08/2025 2:08 PM EDT [facility] Albumin, Plasma 4.2 3.5 - 5.2 g/dL 06/08/2025 2:08 PM EDT [facility] Total Protein 7.4 6.3 - 7.9 g/dL 06/08/2025 2:08 PM EDT [facility] ALT, Plasma 39(H) 10 - 35 U/L 06/08/2025 2:08 PM EDT [facility] AST, Plasma 38(H) 10 - 35 U/L 06/08/2025 2:08 PM EDT [facility] Blood Venous blood specimen / Unknown Venipuncture / Unknown 06/08/2025 11:57 AM EDT 06/08/2025 11:57 AM EDT us Josefa Lim APRN LAB BLOOD ORDERABLES Final Result [facility] [address] [place] [address] * Creatinine, Plasma (06/08/2025 11:57 AM EDT) Creatinine, Plasma 0.76 0.60 - 1.10 mg/dL 06/08/2025 2:08 PM EDT [facility] eGFRcr 94.4 mL/min/1.7 3m*2 06/08/2025 2:08 PM EDT [facility] Comment:Reported eGFRcr in m L/min/1.73m2 is based the CKD-EPI 2020 equation that does not use a race coefficient. Blood Venous blood specimen / Unknown Venipuncture / Unknown 06/08/2025 11:57 AM EDT 06/08/2025 11:57 AM EDT Josefa Lim APRN LAB BLOOD ORDERABLES Final Result [facility] [address] [place] [address] * (ABNORMAL) CBC and Differential (06/08/2025 11:57 AM EDT) WBC Count 5.97 3.70 - 10.30 10*3/uL LAB HEMATOLOGY METHOD 06/08/2025 1:57 PM EDT [facility] RBC Count 5.21(H) 3.90 - 5.20 10*6/uL LAB HEMATOLOGY METHOD 06/08/2025 1:57 PM EDT [facility] HGB 13.7 11.2 - 15.7 g/dL LAB HEMATOLOGY METHOD 06/08/2025 1:57 PM EDT [facility] HCT 42.9 34.0 - 45.0 % LAB HEMATOLOGY METHOD 06/08/2025 1:57 PM EDT [facility] Platelet Count 174 155 - 369 10*3/uL LAB HEMATOLOGY METHOD 06/08/2025 1:57 PM EDT [facility] MCV 82 79 - 98 fL LAB HEMATOLOGY METHOD 06/08/2025 1:57 PM EDT [facility] MCH 26.3 26.0 - 32.0 pg LAB HEMATOLOGY METHOD 06/08/2025 1:57 PM EDT [facility] MCHC 31.9 30.7 - 35.5 g/dL LAB HEMATOLOGY METHOD 06/08/2025 1:57 PM EDT [facility] RDW 15.4(H) 11.5 - 14.5 % LAB HEMATOLOGY METHOD 06/08/2025 1:57 PM EDT [facility] MPV 10.6 8.8 - 12.5 fL LAB HEMATOLOGY METHOD 06/08/2025 1:57 PM EDT [facility] nRBC 0.0 <=0.0 per 100 WBCs LAB HEMATOLOGY METHOD 06/08/2025 1:57 PM EDT [facility] Differential Type Automated LAB HEMATOLOGY METHOD 06/08/2025 1:57 PM EDT [facility] Neutrophils % 57 % LAB HEMATOLOGY METHOD 06/08/2025 1:57 PM EDT [facility] Lymphocytes % 31 % LAB HEMATOLOGY METHOD 06/08/2025 1:57 PM EDT [facility] Monocytes % 6 % LAB HEMATOLOGY METHOD 06/08/2025 1:57 PM EDT [facility] Eosinophils % 3 % LAB HEMATOLOGY METHOD 06/08/2025 1:57 PM EDT [facility] Basophils % 2 % LAB HEMATOLOGY METHOD 06/08/2025 1:57 PM EDT [facility] Immature Granulocytes % 1 % LAB HEMATOLOGY METHOD 06/08/2025 1:57 PM EDT [facility] Neutrophils Absolute 3.46 1.60 - 6.10 10*3/uL LAB HEMATOLOGY METHOD 06/08/2025 1:57 PM EDT [facility] Lymphocytes Absolute 1.84 1.20 - 3.90 10*3/uL LAB HEMATOLOGY METHOD 06/08/2025 1:57 PM EDT [facility] Monocytes Absolute 0.35 0.30 - 0.90 10*3/uL LAB HEMATOLOGY METHOD 06/08/2025 1:57 PM EDT [facility] Eosinophils Absolute 0.19 0.00 - 0.50 10*3/uL LAB HEMATOLOGY METHOD 06/08/2025 1:57 PM EDT [facility] Basophils Absolute 0.09 0.00 - 0.10 10*3/uL LAB HEMATOLOGY METHOD 06/08/2025 1:57 PM EDT [facility] Immature Granulocytes Absolute 0.04 0.00 - 0.06 10*3/uL LAB HEMATOLOGY METHOD 06/08/2025 1:57 PM EDT [facility] Blood Venous blood specimen / Unknown Venipuncture / Unknown 06/08/2025 11:57 AM EDT 06/08/2025 11:57 AM EDT Narrative [facility] - 06/08/2025 1:57 PM EDT Therapeutic decision making should be based on absolute values, rather than percentages. us Josefa Lim APRN LAB BLOOD ORDERABLES Final Result [facility] [address] [place] [address] documented in this encounter Visit Diagnoses Diagnosis [...] documented as of this encounter Care Teams Rn Clinical Coordinator Relationship Specialty Start Date End Date Alissa Faria APRN [address] [place] [address] PCP - General 04/17/24 documented as of this encounter
--- NOTE | 2025-07-16 09:00 | US_ITS ---
FINAL REPORT CLINICAL HISTORY: Pain / urinary frequency COMPARISON: None FINDINGS: ULTRASOUND BLADDER WITH POST VOID RESIDUAL Bladder volumes were estimated based on 3 dimensional measurements, pre- and postvoid. Prevoid bladder volume: 243 mls Postvoid bladder volume: 19 mls IMPRESSION: Estimated bladder volumes as above with small postvoid residual . Reviewed, Interpreted and Dictated by Christophe Lugo MD Transcribed by Fely Brown Authenticated and [facility]
--- OUTSIDE RECORDS SUMMARY | 2025-07-16 09:06 | XMS_ITS | Clinical Summary ---
Author Organization [facility] Address [address] [place] [address] Care Team Providers [employer] Name Role Phone Alissa Faria APRN Primary Care Provider [phone] Allergies Active Allergy Reactions Criticality Noted Date Comments Metformin Nausea,Diarrhea High 09/30/2023 Medications pramipexole (Mirapex) 0.125 MG tablet 08/16/20 20 Active albuterol 108 (90 Base) MCG/ACT inhaler 08/19/20 20 Active cholecalciferol (Vitamin D-3) 1.25 MG (04414 UT) capsule TAKE 1 CAPSULE Weekly 08/16/20 [...] MG tablet 07/13/20 Active ergocalciferol 1.25 MG (84136 UT) capsule 06/22/20 Active clobetasol (Temovate) 0.05 [...] mellitus with other specified complication, unspecified whether joint terminal attack controller insulin use Test 2 times each day, Dx E11.9 1 kit 07/07/20 24 Active Glucose Blood (Blood Glucose Test) stripIndication s:Type 2 diabetes mellitus with other specified complication, unspecified whether senior care insulin use Use as directed to test blood glucose level 2 times per day or to calibrate CGM DX E11.9 100 strip 3 07/07/20 24 Active Lancets miscIndications :Type 2 diabetes mellitus with other specified complication, unspecified whether senior care insulin use Use to test blood glucose [...] mellitus with other specified complication, unspecified whether senior care insulin use Take 1 tablet by mouth daily. 90 tablet 3 03/02/20 25 026 Active tirzepatide (Mounjaro) 7.5 MG/0.5ML solution auto-injector solution pen-injectorInd ications:Type 2 Diabetes Mellitus Inject 0.5 mL under the skin 1 time per week. 2 mL 5 06/01/20 25 026 Active glipiZIDE (Glucotrol) 10 MG tabletIndicatio ns:Type 2 diabetes mellitus with other specified complication, unspecified whether senior care insulin use Take 1 tablet by mouth daily before breakfast. 90 tablet 3 06/01/20 25 026 Active Continuous Glucose Transmitter (Dexcom G6 transmitter) miscIndications :Type 2 diabetes mellitus with other specified complication, unspecified whether senior care insulin use Use as instructed with Dexcom G6 sensor, change every 90 days 1 each 06/01/20 25 Active Continuous Glucose Sensor (Dexcom G6 Sensor) miscIndications :Type 2 diabetes mellitus with other specified complication, unspecified whether joint terminal attack controller insulin use 1 sensor every 10 days. 9 each 3 06/01/20 25 026 Active insulin glargine (Lantus SoloStar) 100 UNIT/ML injection penIndications: Type 2 diabetes mellitus with other specified complication, unspecified whether joint terminal attack controller insulin use INJECT 40 UNITS SUBCUTANEOUSLY AT [...] Encounters Date Type Department Care Team Description 07/13/2025 Orders Only [facility] Medicine Specialties [address], [address] [place] [address] Provider, Historical Antiphospholipid antibody syndrome ([facility]); High risk medication use 07/04/2025 Telephone [facility] Medicine Specialties [address], [address] [place] [address] Aleyda Haji, RN 06/14/2025 Results Follow-Up [facility] Medicine Specialties [address], [facility] [place] [address] Vane Lim APRN 06/08/2025 10:30 AM EDT Office Visit [facility] Medicine Specialties [address], [address] [place] [address] Vane Lim APRN Antiphospholipid antibody syndrome (CMS/HCC) (Primary Dx); Positive JOAN (antinuclear antibody); Psoriasis, unspecified; High risk medication use; Type 2 diabetes mellitus with other specified complication, without long-term current use of insulin; Stage 2 chronic kidney disease 06/08/2025 Travel 06/01/2025 12:40 PM EDT Office Visit [facility] Endocrinology [address] [place] [address] Nkechi Celeste APRN Type 2 diabetes mellitus with other specified complication, unspecified whether senior care insulin use (CMS/HCC) (Primary Dx); Neuropathy; Hyperlipidemia, unspecified hyperlipidemia type; Obesity (BMI 30-39.9) 06/01/2025 Travel 04/19/2025 Refill [facility] Endocrinology [address] [place] [address] Nkechi Celeste APRN from Last 3 Months [...] Other 4 Autoimmune disease Paternal Grandmother Pamela marshallpool cancer Relation Name Status Comments Father Conrad [...] Description 09/14/2025 2:20 PM EST Office Visit [facility] Medicine Specialties [address], [address] [place] [address] Vane Lim, WOOD WINDOW AND DOOR CRAFTSMAN [address] [place] [address] 09/21/2025 12:20 PM EST Office Visit [facility] Endocrinology [address] [place] [phone] Nkechi Celeste, WOOD WINDOW AND DOOR CRAFTSMAN [address] [place] [address] Health Maintenance Due Date Last Done Comments [...] PPSV23, PCV20, or PCV21) 09/02/2017 07/19/2017, 07/08/2017 [id number] Vaccine (3 - Moderna risk series) 01/29/2021 [...] Procedure Name Priority Date/Time Associated Diagnosis Comments HEPATIC FUNCTION PANEL Routine 07/13/2025 4:43 PM EST Antiphospholipid antibody syndrome (CMS/HCC) High risk medication use CREATININE, PLASMA Routine 07/13/2025 4: 43 PM EST Antiphospholipid antibody syndrome (CMS/HCC) High risk medication use CBC WITH AUTO DIFFERENTIAL Routine 07/13/2025 4:35 PM EST Antiphospholipid antibody syndrome (CMS/HCC) High risk medication use URINALYSIS MICROSCOPIC FOR UA REFLEX Routine 06/08/2025 [...] of insulin Stage 2 chronic kidney disease CHAMBERS/ACCESS SERVICES REPRESENTATIVE (RANDA) ANTIBODY, IGG (SO) Routine 06/08/2025 11:57 [...] mellitus with other specified complication, unspecified whether senior care insulin use (CMS/HCC) ACUTE HEPATITIS PANEL Routine 12/21/2023 11:06 AM EDT Unspecified abnormal finding in specimens from other organs, systems and tissues Elevated erythrocyte sedimentation rate Polyarthralgia Sicca syndrome (CMS/HCC) from Last 3 Months or Most Recently Relevant to Health Maintenance Results * Creatinine, Plasma (07/13/2025 4:43 PM EST) Only the most recent of2 resultswithin the time period is included. Blood Venous blood specimen / Unknown us Vane Lim WOOD WINDOW [employer] DOOR CRAFTSMAN LAB BLOOD ORDERABLES Final Result [facility] [address] [place] [address] * Hepatic Function Panel (07/13/2025 4:43 PM EST) Only the most recent of2 resultswithin the time period is included. Blood Venous blood specimen / Unknown Vane Lim WOOD WINDOW AND DOOR CRAFTSMAN LAB BLOOD ORDERABLES Final Result Performing Organization Address [facility] Phone Number [facility] [address] [place] [address] * CBC and Differential (07/13/2025 4:35 PM EST) Only the most recent of2 resultswithin the time period is included. Blood Venous blood specimen / Unknown Vane Lim APRN LAB BLOOD ORDERABLES Final Result Performing Organization Address [facility] de Phone Number [facility] [address] [place] [address] * Urinalysis Microscopic Examination (06/08/2025 11:57 AM EDT) Urine Urine specimen obtained by clean catch procedure / Unknown Non-blood Collection / Unknown 06/08/2025 11:57 AM EDT 06/08/2025 11:57 AM EDT Vane Lim APRN LAB URINE ORDERABLES Final Result Performing Organization Address [facility] de Phone Number [facility] [address] [place] [address] * Chambers (RANDA) Antibody, IgG (06/08/2025 11:57 AM EDT) Chambers (RANDA) Antibody, IgG 4 0 - 40 AU/mL 06/10/2025 3:57 PM EDT [facility] (JAIDEN) Serum 06/08/2025 11:5 7 AM EDT 06/08/2025 11:57 AM EDT Narrative [facility] (JAIDEN) - 06/10/2025 3:57 PM EDT [...] associations with SLE clinical manifestations. Performed By: [facility] [address] [place] [address] Duct Layer Supervisor: Chaz Marcelo MD, PhD CLIA Number: [id number] us Vane Lim WOOD WINDOW AND DOOR CRAFTSMAN LAB REF LAB BLOOD AND FLUI D ORD Final Result [facility] ([facility]) [address] [place], [place] [id number] * ENAII (06/08/2025 11:57 AM EDT) SSA-52 (RO52) (RANDA) Antibody, IgG 2 0 - 40 AU/mL 06/12/2025 10:00 AM EDT [facility] ([facility]) SSA-60 (RO60) (RANDA) Antibody, IgG 1 0 - 40 AU/mL 06/12/2025 10:00 AM EDT [facility] ([facility]) SSB (LA) (RANDA) Antibody, IgG 1 0 - 40 AU/mL 06/12/2025 10:00 AM EDT [facility] ([facility]) Blood Venous blood specimen / Unknown Venipuncture / Unknown 06/08/2025 11:57 AM EDT 06/08/2025 11:57 AM EDT Narrative [facility] ([facility]) - 06/12/2025 10:00 AM EDT INTERPRETIVE INFORMATION: [...] (PSS) also have this antibody. Performed By: [facility] [address] [place] [address] Duct Layer Supervisor: Chaz Marcelo MD, PhD CLIA Number: [id number] us Vane Lim WOOD WINDOW AND DOOR CRAFTSMAN LAB BLOOD ORDERABLES Final Result [facility]) [address] [place], [place] [id number] * ENAI (06/08/2025 11:57 AM EDT) Chambers/ACCESS SERVICES REPRESENTATIVE (RANDA) Ab, IgG 4 0 - 19 Units 06/12/2025 10:59 PM EDT [facility] ([facility]) Blood Venous blood specimen / Unknown Venipuncture / Unknown 06/08/2025 11:57 AM EDT 06/08/2025 11:57 AM EDT Narrative [facility] RADHA) - 06/12/2025 10:59 PM EDT INTERPRETIVE INFORMATION: Chambers/ACCESS SERVICES REPRESENTATIVE (RANDA) Antibody, IgG 19 Units or Less ............. Negative 20 to 39 Units ............... Weak Positive 40 to 80 Units ............... Moderate Positive 81 Units or greater .......... Strong Positive Chambers/ACCESS SERVICES REPRESENTATIVE antibodies are frequently seen in patients with mixed connective tissue disease (MCTD) and are also associated with other systemic autoimmune rheumatic diseases (SARDs) such as systemic lupus erythematosus (SLE), systemic sclerosis, and myositis. Antibodies targeting the Chambers/ACCESS SERVICES REPRESENTATIVE antigenic complex also recognize Chambers antigens, therefore, the Chambers antibody response must be considered when interpreting these results. Performed By: [facility] [address] [place] [address] Duct Layer Supervisor: Chaz Marcelo MD, PhD CLIA Number: [id number] Vane Lim [facility] LAB BLOOD ORDERABLES Final Result Performing Organization Address City/[facility]/ZIP Co de Phone Number [facility] ([facility]) [address] [place] [address] * Thyroid Peroxidase Antibody (06/08/2025 11:57 AM EDT) [facility] Thyroid Peroxidase Antibody <5 <=8 IU/mL 06/08/2025 4:18 PM EDT [facility] Blood Venous blood specimen / Unknown Venipuncture / Unknown 06/08/2025 11:57 AM EDT 06/08/2025 11:57 AM EDT Vane Lim WOOD WINDOW AND DOOR CRAFTSMAN LAB BLOOD ORDERABLES Final Result [facility] [address] [place] [address] * Double-Stranded DNA (dsDNA) Antibody, IgG by IFA (06/08/2025 11:57 AM EDT) Pathologist [facility] Double-Strande d DNA (dsDNA) Ab IgG IFA <1:10 <1:10 06/14/2025 12:26 AM EDT [facility] (JA[facility]) Blood Venous blood specimen / Unknown Venipuncture / Unknown 06/08/2025 11:57 AM EDT 06/08/2025 11:57 AM EDT Narrative [facility] HERNAN GARCIA) - 06/14/2025 12:26 AM EDT INTERPRETIVE INFORMATION: [...] recommendations for testing may be found at [email or web address]. Performed By: [facility] [address] [place] [address] Duct Layer Supervisor: Chaz Marcelo MD, PhD CLIA Number: [id number] us Vane Lim WOOD WINDOW AND DOOR CRAFTSMAN LAB BLOOD ORDERABLES Final Result [facility] RADHA) [address] [place] [id number] * Protein, Random, Urine with Creatinine (06/08/2025 11:57 AM EDT) Protein, Urine 14 mg/dL 06/08/2025 1:51 PM EDT [facility] Creatinine, Urine 138 mg/dL 06/08/2025 1:51 PM EDT [facility] Protein/Creatin ine Ratio 0.1 mg/mg Creat 06/08/2025 1:51 PM EDT [facility] Urine Urine specimen obtained by clean catch procedure / Unknown Non-blood Collection / Unknown 06/08/2025 11:57 AM EDT 06/08/2025 11:57 AM EDT Vane Lim APRN LAB URINE ORDERABLES Final Result [facility] [address] [place] [address] * (ABNORMAL) Urinalysis with reflex microscopic (Culture NOT Included) (06/08/2025 11:57 AM EDT) Color, Urine Yellow LAB URINALYSIS - AUTOMATED METHOD 06/08/2025 1:43 PM EDT [facility] Clarity, Urine Clear LAB URINALYSIS - AUTOMATED METHOD 06/08/2025 1:43 PM EDT [facility] Spec Napoleon, Urine 1.030 1.005 - 1.030 LAB URINALYSIS - AUTOMATED METHOD 06/08/2025 1:43 PM EDT [facility] pH, Urine 5.5 5.0 - 8.0 LAB URINALYSIS - AUTOMATED METHOD 06/08/2025 1:43 PM EDT [facility] Protein, Urine Negative Negative mg/dL LAB URINALYSIS - AUTOMATED METHOD 06/08/2025 1:43 PM EDT [facility] Glucose, Urine 500(A) Negative mg/dL LAB URINALYSIS - AUTOMATED METHOD 06/08/2025 1:43 PM EDT [facility] Ketones, Urine Trace(A) Negative mg/dL LAB URINALYSIS - AUTOMATED METHOD 06/08/2025 1:43 PM EDT [facility] Blood, Urine Negative Negative LAB URINALYSIS - AUTOMATED METHOD 06/08/2025 1:43 PM EDT [facility] Bilirubin, Urine Negative Negative LAB URINALYSIS - AUTOMATED METHOD 06/08/2025 1:43 PM EDT [facility] Urobilinogen, Urine 0.2 0.2 to 1.0 mg/dL LAB URINALYSIS - AUTOMATED METHOD 06/08/2025 1:43 PM EDT [facility] Leukocytes, Urine Small(A) Negative LAB URINALYSIS - AUTOMATED METHOD 06/08/2025 1:43 PM EDT [facility] Nitrite, Urine Negative Negative LAB URINALYSIS - AUTOMATED METHOD 06/08/2025 1:43 PM EDT [facility] RBC, Urine 1 0 to 3 /HPF LAB URINALYSIS - AUTOMATED METHOD 06/08/2025 1:43 PM EDT [facility] WBC, Urine 0 - 5 0 to 5 /HPF LAB URINALYSIS - AUTOMATED METHOD 06/08/2025 1:43 PM EDT [facility] Squamous Epithelial Cells 3 - 5 0 to 5 /HPF LAB URINALYSIS - AUTOMATED METHOD 06/08/2025 1:43 PM EDT [facility] Hyaline Casts 0 - 2 0 to 5 /LPF LAB URINALYSIS - AUTOMATED METHOD 06/08/2025 1:43 PM EDT [facility] Bacteria, Urine Present Negative LAB URINALYSIS - AUTOMATED METHOD 06/08/2025 1:43 PM EDT [facility] Urine Urine specimen obtained by clean catch procedure / Unknown Non-blood Collection / Unknown 06/08/2025 11:57 AM EDT 06/08/2025 11:57 AM EDT Vane Lim APRN LAB URINE ORDERABLES Final Result [facility] [address] [place] [address] * C3 Complement (06/08/2025 11:57 AM EDT) C3 Complement 126 84 - 166 mg/dL 06/08/2025 3:33 PM EDT [facility] Blood Venous blood specimen / Unknown Venipuncture / Unknown 06/08/2025 11:57 AM EDT 06/08/2025 11:57 AM EDT Vane Lim APRN LAB BLOOD ORDERABLES Final Result [facility] [address] [place] [address] * C4 Complement (06/08/2025 11:57 AM EDT) C4 Complement 15 13 - 36 mg/dL 06/08/2025 3:33 PM EDT [facility] Blood Venous blood specimen / Unknown Venipuncture / Unknown 06/08/2025 11:57 AM EDT 06/08/2025 11:57 AM EDT Vane Lim WOOD WINDOW AND DOOR CRAFTSMAN LAB BLOOD ORDERABLES Final Result [facility] [address] [place] [address] * Antinuclear Antibody (JOAN), HEp-2, IgG (06/08/2025 11:57 AM EDT) JOAN INTERPRETIVE COMMENT See Note 06/12/2025 2:44 PM EDT [facility] ([facility]) Anti Nuc Ab Screen <1:80 <1:80 06/12/2025 2:44 PM EDT [facility] ([facility]) Blood Venous blood specimen / Unknown Venipuncture / Unknown 06/08/2025 11:57 AM EDT 06/08/2025 11:57 AM EDT Narrative [facility] ([facility]) - 06/12/2025 2:44 PM EDT [...] not necessarily rule out SARD. Performed By: [facility] [address] [place] [address] Duct Layer Supervisor: Chaz Marcelo MD, PhD CLIA Number: [id number] Vane Lim WOOD WINDOW AND DOOR CRAFTSMAN LAB BLOOD ORDERABLES Final Result Performing Organization Address [facility]/ZIP Co de Phone Number [email or web address] ([facility]) [address] [place] [address] * POCT glycosylated hemoglobin (Hb A1C) (06/01/2025 12:47 PM EDT) [facility] POCT Hemoglobin A1C 6.8 <5.7% Non-Diabet ic % [facility] Kit Lot Number [id number] [facility] Kit Expiration Date 04/2027 [facility] Blood Venous blood specimen / Unknown 06/01/2025 12:47 PM EDT Nkechi Celeste WOOD WINDOW AND DOOR CRAFTSMAN POINT OF CARE TEST ENTER /EDIT ORDERABLES Final Result Performing Organization Address [facility] de Phone Number [facility] [address] [place] [address] * Acute Hepatitis Panel (12/21/2023 11:06 AM EDT) [facility] Hepatitis B Surf Antigen Negative Negative 12/21/2023 2:38 PM EDT [facility] Hepatitis C Antibody Negative Negative 12/21/2023 2:38 PM EDT [facility] Hepatitis A Antibody IgM Negative Negative 12/21/2023 2:38 PM EDT [facility] Hepatitis B Core Antibody IgM Negative Negative 12/21/2023 2:38 PM EDT [facility] Blood Venous blood specimen / Unknown Venipuncture / Unknown 12/21/2023 11:06 AM EDT 12/21/2023 11:07 AM EDT Vane Lim WOOD WINDOW AND DOOR CRAFTSMAN LAB BLOOD ORDERABLES Final Result Performing Organization Address [facility] Co de Phone Number [facility] [address] [place] [address] from Last 3 Months or Most Recently Relevant to Health Maintenance Insurance [employer] Relationship Specialty Start Date End Date Alissa Faria APRN [address] [place] [id number] PCP - General 04/17/24
--- OUTSIDE RECORDS SUMMARY | 2025-07-16 09:06 | XMS_ITS | Encounter Summary ---
Author Organization Healthcare Address [address] [place] [address] Care Team Providers Care Insecticide Maker Name Role Phone Alissa Faria WILTON Primary Care Provider [phone] Encounter Details Date Type Department Care Team [...] Description 09/14/2025 2:20 PM EST Office Visit [facility] Medicine [facility]ties [address], [address] [place] [address] Vane Lim APRN [address] [place] [address] 09/21/2025 12:20 PM EST [facility] [address] [place] [phone] Nkechi Celeste, LABOR/EXCAVATOR [address] [facility] [address] [place] [address] documented as of this encounter Visit Diagnoses Not on filedocumented in this encounter Additional Health Concerns Assessment Noted Time A fall risk assessment has been complete d for the patient 06/09/2024 10:35 AM EDT A Body Mass Index follow-up plan has been documented for the patient 06/01/2025 2:51 PM EDT documented as of this encounter Care Teams Insecticide Maker Relationship Specialty Start Date End Date Alissa Faria APRN [address] [place] [address] PCP - General 04/17/24 documented as of this encounter
--- OUTSIDE RECORDS SUMMARY | 2025-07-16 09:07 | XMS_ITS | Encounter Summary ---
Author Organization Healthcare Address [address] [place] [address] Care Team Providers Care Sexual Assault Counselor Name Role Phone Alissa Faria APRN Primary Care Provider [phone] Encounter Details Date Type Department Care Team (Late st Contact Info) Description 07/04/2025 Telephone [place] [facility] [address] [place] [address] Aleyda Haji, RN CH-VASCULAR & [...] done tomorrow. Adv I would check with [facility] next week. * Telephone Encounter - Aleyda Haji RN - 07/04/2025 9:46 AM EDT Faxed lab orders to [facility] at fax [phone]. * Telephone Encounter - Aleyda Haji RN - 07/04/2025 9:43 AM EDT Spoke with patient, adv that we need labs 1mo after starting ASA. Pt requested to have lab orders sent to [facility]. Adv to let us know once [...] [facility] Medicine Specialties [address], [address] [place] [address] Vane Lim APRN [address] [place] [phone] 09/21/2025 12:20 PM EST Office Visit [facility] Endocrinology [address] [place] [phone] Nkechi Celeste APRN [address] [place] [address] documented as of this encounter [...] documented as of this encounter Care Teams Sexual Assault Counselor Relationship Specialty Start Date End Date Alissa Faria APRN [address] [place] [address] PCP - General 04/17/24 documented as of this encounter
--- OUTSIDE RECORDS SUMMARY | 2025-07-16 09:07 | XMS_ITS | Encounter Summary ---
Author Organization [facility] Address [address] [place] [address] Care Team Providers Care Contact Finger Assembler Name Role Phone Alissa Faria APRN Primary Care Provider [phone] Encounter Details Date Type Department Care Team [...] Schultz Thoughts that you would be b abrbara off or hurting yourself in some way [...] Description 09/14/2025 2:20 PM EST Office Visit [place] [facility] Medicine Specialties [address], [address] [place] [address] Vane Lim, CODING VALIDATOR [address] [place] [address] 09/21/2025 12:20 PM EST Office Visit [facility] Endocrinology [address] [place] [phone] Nkechi Celeste, CODING VALIDATOR [address] [facility] [address] [place] [address] documented as of this encounter Visit Diagnoses [...] documented as of this encounter Care Teams Contact Finger Assembler Relationship Specialty Start Date End Date Alissa Faria APRN [address] [place] [address] PCP - General 04/17/24 documented as of this encounter
--- OUTSIDE RECORDS SUMMARY | 2025-07-16 09:07 | XMS_ITS | Data Portability ---
Author Organization [facility] MARÍA ELENA IssaS [place]STER CLOSED Address [address] [place] [address] Care Team Providers Care Water Aerobics Instructor Name Role Phone PETEY MIRANDA Primary Care Provider [phone] DMITRY AMBRIZ Machine Bobbin Winder Unavailable Assessment Encounter Date Assessment Date Assessment [...] The needle insertion site was closed with iqshmi-[id number] suture of 4-0 monocryl. Dressings were applied. Patient tolerated the procedure well, left the operating room in satisfactory condition. [email or web address] Not available 07/11/2019 03:13:58 Plan of Treatment Reminders Order Date Submit Date Provider Last Modified By Organization Details Last Modified Time Details Appointments None recorded. Lab urinalysis panel, auto 2021 022 [facility], [address], [address], [place], [address], 14:55:13 urinalysis, dipstick, auto 2018 019 [facility], [address], [address], [place], [address], 9 15:31:24 urinalysis, dipstick, auto 2018 019 [facility], [address], [address], [place], [address], 9 17:12:55 Referral None recorded. Procedures None recorded. Surgeries interstim continence control therapy, permanent (SURG) 2018 [email or web address] [facility]es, [address], [facility] [address], [place], [address], 9 15:02:52 Imaging None recorded. Medication Orders Percocet 5 mg-325 mg tablet 2018 Magalie cartagena [facility], [address], [id number], 9 15:02:06 cefadroxil 500 mg capsule 2018 mitzi Castrothiana [facility], [address] [address] [address], JUVENAL Dumont, [id number], 9 15:02:02 Patient TargetsNo targets recorded. Patient Instructions Encounter Date Encounter Id Patient Instructions Last Modified By Organization Details Last Modified Time 09/05/2018 [id number] Urge Incontinence: Care Instructions celenaadley Not available 09/07/2018 10:27:33 06/08/2019 [id number] Urge Incontinence: Care Instructions fhadley Not available 06/08/2019 17:12:55 07/25/2019 [id number] learning about healthy weight fhadley Not available 07/25/2019 15:31:24 Urge Incontinence: Care Instructions [facility] Not available 07/25/2019 15:31:24 Reason for Referral None Reported. Results Created Date Observation Date Name Description Value Unit Range Abnormal Flag Note LastModifiedBy Organization Detail LastModifiedTime 07/25/2007/25/2019 urina lysis , dipst ick, auto Unknown Analyte Yellow Not Available [facility] [address], [place], [address], 07/25/2019 15:02:40 07/25/20 19 07/25/2019 urina lysis , dipst ick, auto Unknown Analyte Clear Not Available [facility] [address], [place], [address], 07/25/2019 15:02:40 07/25/2007/25/2019 urina lysis , dipst ick, auto Unknown Analyte 1.015 Not Available [facility] [address], [place], [address], 07/25/2019 15:02:40 07/25/20 19 07/25/2019 urina lysis , dipst ick, auto Unknown Analyte 1.003 - 1.035 Not Available [facility] [address], [place], [address], 07/25/2019 15:02:40 07/25/20 19 07/25/2019 urina lysis , dipst ick, auto Unknown Analyte 5.0 Not Available [facility] [address], [place], [address], 07/25/2019 15:02:40 07/25/2007/25/2019 urina lysis , dipst ick, auto Unknown Analyte 5.0 - 8.0 Not Available [facility] [address], [place], [address], 07/25/2019 15:02:40 07/25/20 19 07/25/2019 urina lysis , dipst ick, auto Unknown Analyte Negati ve Not Available [facility] [address], [place], [address], 07/25/2019 15:02:40 07/25/20 19 07/25/2019 urina lysis , dipst ick, auto Unknown Analyte Negati ve Not Available [facility] [address] [facility] [address], [place], [address], 07/25/2019 15:02:40 07/25/2007/25/2019 urina lysis , dipst ick, auto Unknown Analyte Negati ve Not Available [facility] [address], [place], [address], 07/25/2019 15:02:40 07/25/2007/25/2019 urina lysis , dipst ick, auto Unknown Analyte Negati ve Not Available [facility] [address], [place], [address], 07/25/2019 15:02:40 07/25/20 19 07/25/2019 urina lysis , dipst ick, auto Unknown Analyte Negtiv e Not Available [facility] [address], [place], [address], 07/25/2019 15:02:40 07/25/2007/25/2019 urina lysis , dipst ick, auto Unknown Analyte Negati ve - Trace Not Available [facility] [address], [place], [address], 07/25/2019 15:02:40 07/25/20 19 07/25/2019 urina lysis , dipst ick, auto Unknown Analyte Normal Not Available [facility] [address], [place], [address], 07/25/2019 15:02:40 07/25/20 19 07/25/2019 urina lysis , dipst ick, auto Unknown Analyte Normal Not Available [facility] [address], [place], [address], 07/25/2019 15:02:40 07/25/2007/25/2019 urina lysis , dipst ick, auto Unknown Analyte Negati ve Not Available [facility] [address], [place], [address], 07/25/2019 15:02:40 07/25/2007/25/2019 urina lysis , dipst ick, auto Unknown Analyte Negati ve Not Available [facility] [address], [place], [address], 07/25/2019 15:02:40 07/25/2007/25/2019 urina lysis , dipst ick, auto Unknown Analyte Normal Not Available [facility] [address], [place], [address], 07/25/2019 15:02:40 07/25/2007/25/2019 urina lysis , dipst ick, auto Unknown Analyte Normal - 1mg/dl Not Available [facility] [address], [place], [address], 07/25/2019 15:02:40 07/25/2007/25/2019 urina lysis , dipst ick, auto Unknown Analyte Negati ve Not Available [facility] [address], [place], [address], 07/25/2019 15:02:40 07/25/2007/25/2019 urina lysis , dipst ick, auto Unknown Analyte Negati ve Not Available [facility] [address], [place], [address], 07/25/2019 15:02:40 07/25/2007/25/2019 urina lysis , dipst ick, auto Unknown Analyte Negati ve Not Available [facility] [address], [place], [address], 07/25/2019 15:02:40 07/25/2007/25/2019 urina lysis , dipst ick, auto Unknown Analyte Negati ve Not Available [facility] [address], [place], [address], 07/25/2019 15:02:40 07/25/20 19 07/25/2019 urina lysis , dipst ick, auto Unknown Analyte Clean Catch Not Available [facility] [address] [facility] [address], [place], [address], 07/25/2019 15:02:40 07/25/2007/25/2019 urina lysis , dipst ick, auto Unknown Analyte Automa román Not Available [facility] [address] [facility] [address], [place], [address], 07/25/2019 15:02:40 06/08/2006/08/2019 urina lysis , dipst ick, auto Unknown Analyte Yellow Not Available [facility] [address] [facility] [address], [place], [address], 06/08/2019 14:26:55 06/08/2006/08/2019 urina lysis , dipst ick, auto Unknown Analyte Clear Not Available [facility] [address] [facility] [address], [place], [address], 06/08/2019 14:26:55 06/08/2006/08/2019 urina lysis , dipst ick, auto Unknown Analyte 1.020 Not Available [facility] [address] [facility] [address], [place], [address], 06/08/2019 14:26:55 06/08/2006/08/2019 urina lysis , dipst ick, auto Unknown Analyte 1.003 - 1.035 Not Available [facility] [address] [facility] [address], [place], [address], 06/08/2019 14:26:55 06/08/2006/08/2019 urina lysis , dipst ick, auto Unknown Analyte 5.0 Not Available [facility] [address] [facility] [address], [place], [address], 06/08/2019 14:26:55 06/08/2006/08/2019 urina lysis , dipst ick, auto Unknown Analyte 5.0 - 8.0 Not Available [facility] [address] [facility] [address], [place], [address], 06/08/2019 14:26:55 06/08/2006/08/2019 urina lysis , dipst ick, auto Unknown Analyte Negati ve Not Available [facility] [address] [place] [address] [address], [place], [address], 06/08/2019 14:26:55 06/08/2006/08/2019 urina lysis , dipst ick, auto Unknown Analyte Negati ve Not Available [facility] [address] [facility] [address], [place], [address], 06/08/2019 14:26:55 06/08/2006/08/2019 urina lysis , dipst ick, auto Unknown Analyte Negati ve Not Available [facility] [address] [facility] [address], [place], [address], 06/08/2019 14:26:55 06/08/2006/08/2019 urina lysis , dipst ick, auto Unknown Analyte Negati ve Not Available [facility] [address], [place], [address], 06/08/2019 14:26:55 06/08/2006/08/2019 urina lysis , dipst ick, auto Unknown Analyte Trace Not Available [facility] [address] [facility] [address], [place], [address], 06/08/2019 14:26:55 06/08/2006/08/2019 urina lysis , dipst ick, auto Unknown Analyte Negati ve - Trace Not Available [facility] [address] [facility] [address], [place], [address], 06/08/2019 14:26:55 06/08/2006/08/2019 urina lysis , dipst ick, auto Unknown Analyte Normal Not Available [facility] [address] [place] [address] [address], [place], [address], 06/08/2019 14:26:55 06/08/2006/08/2019 urina lysis , dipst ick, auto Unknown Analyte Normal Not Available [facility] [address] [place] [address] [address], [place], [address], 06/08/2019 14:26:55 06/08/2006/08/2019 urina lysis , dipst ick, auto Unknown Analyte Negati ve Not Available [facility] [address], [place], [address], 06/08/2019 14:26:55 06/08/2006/08/2019 urina lysis , dipst ick, auto Unknown Analyte Negati ve Not Available [facility] [address] [facility] [address], [place], [address], 06/08/2019 14:26:55 06/08/2006/08/2019 urina lysis , dipst ick, auto Unknown Analyte Normal Not Available [facility] [address] [facility] [address], [place], [address], 06/08/2019 14:26:55 06/08/2006/08/2019 urina lysis , dipst ick, auto Unknown Analyte Normal - 1mg/dl Not Available [facility] [address] [facility] [address], [place], [address], 06/08/2019 14:26:55 06/08/2006/08/2019 urina lysis , dipst ick, auto Unknown Analyte Negati ve Not Available [facility] [address] [facility] [address], [place], [address], 06/08/2019 14:26:55 06/08/2006/08/2019 urina lysis , dipst ick, auto Unknown Analyte Negati ve Not Available [facility] [address] [facility] [address], [place], [address], 06/08/2019 14:26:55 06/08/2006/08/2019 urina lysis , dipst ick, auto Unknown Analyte Negati ve Not Available [facility] [address] [place] [address] [address], [place], [address], 06/08/2019 14:26:55 06/08/2006/08/2019 urina lysis , dipst ick, auto Unknown Analyte Negati ve Not Available [facility] [address], [place], [address], 06/08/2019 14:26:55 06/08/20 19 06/08/2019 urina lysis , dipst ick, auto Unknown Analyte Clean Catch Not Available [facility] [address], [place], [address], 06/08/2019 14:26:55 06/08/2006/08/2019 urina lysis , dipst ick, auto Unknown Analyte Automa román Not Available [facility] [address] [facility] [address], [place], [address], 06/08/2019 14:26:55 08/17/20 18 08/17/2018 urina lysis , dipst ick, auto Unknown Analyte Straw Not Available [facility] [address], [place], [address], 08/17/2018 09:52:16 08/17/20 18 08/17/2018 urina lysis , dipst ick, auto Unknown Analyte Clear Not Available [facility] [address] [place] [address] [address], [place], [address], 08/17/2018 09:52:16 08/17/20 18 08/17/2018 urina lysis , dipst ick, auto Unknown Analyte 1.010 Not Available [facility] [address], [place], [address], 08/17/2018 09:52:16 08/17/20 18 08/17/2018 urina lysis , dipst ick, auto Unknown Analyte 1.003 - 1.035 Not Available [facility] [address], [place], [address], 08/17/2018 09:52:16 08/17/20 18 08/17/2018 urina lysis , dipst ick, auto Unknown Analyte 5.0 Not Available [facility] [address], [place], [address], 08/17/2018 09:52:16 08/17/20 18 08/17/2018 urina lysis , dipst ick, auto Unknown Analyte 5.0 - 8.0 Not Available [facility] [address], [place], [address], 08/17/2018 09:52:16 08/17/20 18 08/17/2018 urina lysis , dipst ick, auto Unknown Analyte Negati ve Not Available [facility] [address], [place], [address], 08/17/2018 09:52:16 08/17/20 18 08/17/2018 urina lysis , dipst ick, auto Unknown Analyte Negati ve Not Available [facility] [address], [place], [address], 08/17/2018 09:52:16 08/17/20 18 08/17/2018 urina lysis , dipst ick, auto Unknown Analyte Negati ve Not Available [facility] [address], [place], [address], 08/17/2018 09:52:16 08/17/20 18 08/17/2018 urina lysis , dipst ick, auto Unknown Analyte Negati ve Not Available [facility] [address], [place], [address], 08/17/2018 09:52:16 08/17/20 18 08/17/2018 urina lysis , dipst ick, auto Unknown Analyte Negtiv e Not Available [facility] [address], [place], [address], 08/17/2018 09:52:16 08/17/20 18 08/17/2018 urina lysis , dipst ick, auto Unknown Analyte Negati ve - Trace Not Available [facility] [address], [place], [address], 08/17/2018 09:52:16 08/17/20 18 08/17/2018 urina lysis , dipst ick, auto Unknown Analyte 250 mg/dl Not Available [facility] [address], [place], [address], 08/17/2018 09:52:16 08/17/20 18 08/17/2018 urina lysis , dipst ick, auto Unknown Analyte Normal Not Available [facility] [address], [place], [address], 08/17/2018 09:52:16 08/17/20 18 08/17/2018 urina lysis , dipst ick, auto Unknown Analyte Negati ve Not Available [facility] [address], [place], [address], 08/17/2018 09:52:16 08/17/20 18 08/17/2018 urina lysis , dipst ick, auto Unknown Analyte Negati ve Not Available [facility] [address], [place], [address], 08/17/2018 09:52:16 08/17/20 18 08/17/2018 urina lysis , dipst ick, auto Unknown Analyte Normal Not Available [facility] [address], [place], [address], 08/17/2018 09:52:16 08/17/20 18 08/17/2018 urina lysis , dipst ick, auto Unknown Analyte Normal - 1mg/dl Not Available [facility] [address], [place], [address], 08/17/2018 09:52:16 08/17/20 18 08/17/2018 urina lysis , dipst ick, auto Unknown Analyte Negati ve Not Available [facility] [address], [place], [address], 08/17/2018 09:52:16 08/17/20 18 08/17/2018 urina lysis , dipst ick, auto Unknown Analyte Negati ve Not Available [facility] [address], [place], [address], 08/17/2018 09:52:16 08/17/20 18 08/17/2018 urina lysis , dipst ick, auto Unknown Analyte Negati ve Not Available [facility] [address], [place], [address], 08/17/2018 09:52:16 08/17/20 18 08/17/2018 urina lysis , dipst ick, auto Unknown Analyte Negati ve Not Available [facility] [address], [place], [address], 08/17/2018 09:52:16 08/17/20 18 08/17/2018 urina lysis , dipst ick, auto Unknown Analyte Clean Catch Not Available [facility] [address], [place], [address], 08/17/2018 09:52:16 08/17/20 18 08/17/2018 urina lysis , dipst ick, auto Unknown Analyte Automa román Not Available [facility] [address], [place], [address], 08/17/2018 09:52:16 08/12/20 18 08/12/2018 urina lysis , dipst ick, auto Unknown Analyte Yellow Not Available [facility] [address], [place], [address], 08/12/2018 13:34:52 08/12/20 18 08/12/2018 urina lysis , dipst ick, auto Unknown Analyte Clear Not Available [facility] [address], [place], [address], 08/12/2018 13:34:52 08/12/20 18 08/12/2018 urina lysis , dipst ick, auto Unknown Analyte 1.010 Not Available [facility] [address], [place], [address], 08/12/2018 13:34:52 08/12/20 18 08/12/2018 urina lysis , dipst ick, auto Unknown Analyte 1.003 - 1.035 Not Available [facility] [address], [place], [address], 08/12/2018 13:34:52 08/12/20 18 08/12/2018 urina lysis , dipst ick, auto Unknown Analyte 5.0 Not Available [facility] [address] [facility] [address], [place], [address], 08/12/2018 13:34:52 08/12/20 18 08/12/2018 urina lysis , dipst ick, auto Unknown Analyte 5.0 - 8.0 Not Available [facility] [address] [facility] [address], [place], [address], 08/12/2018 13:34:52 08/12/20 18 08/12/2018 urina lysis , dipst ick, auto Unknown Analyte 25 Kristal/ul Trace Not Available [facility] [address] [place] [address] [address], [place], [address], 08/12/2018 13:34:52 08/12/20 18 08/12/2018 urina lysis , dipst ick, auto Unknown Analyte Negati ve Not Available [facility] [address] [place] [address] [address], [place], [address], 08/12/2018 13:34:52 08/12/20 18 08/12/2018 urina lysis , dipst ick, auto Unknown Analyte Negati ve Not Available [facility] [address], [place], [address], 08/12/2018 13:34:52 08/12/20 18 08/12/2018 urina lysis , dipst ick, auto Unknown Analyte Negati ve Not Available [facility] [address], [place], [address], 08/12/2018 13:34:52 08/12/20 18 08/12/2018 urina lysis , dipst ick, auto Unknown Analyte Negtiv e Not Available [facility] [address], [place], [address], 08/12/2018 13:34:52 08/12/20 18 08/12/2018 urina lysis , dipst ick, auto Unknown Analyte Negati ve - Trace Not Available [facility] [address], [place], [address], 08/12/2018 13:34:52 08/12/20 18 08/12/2018 urina lysis , dipst ick, auto Unknown Analyte Normal Not Available [facility] [facility] [address], [place], [address], 08/12/2018 13:34:52 08/12/20 18 08/12/2018 urina lysis , dipst ick, auto Unknown Analyte Normal Not Available [facility] [address], [place], [address], 08/12/2018 13:34:52 08/12/20 18 08/12/2018 urina lysis , dipst ick, auto Unknown Analyte Negati ve Not Available [facility] [address], [place], [address], 08/12/2018 13:34:52 08/12/20 18 08/12/2018 urina lysis , dipst ick, auto Unknown Analyte Negati ve Not Available [facility] [address], [place], [address], 08/12/2018 13:34:52 08/12/20 18 08/12/2018 urina lysis , dipst ick, auto Unknown Analyte Normal Not Available [facility] [address], [place], [address], 08/12/2018 13:34:52 08/12/20 18 08/12/2018 urina lysis , dipst ick, auto Unknown Analyte Normal - 1mg/dl Not Available [facility] [address], [place], [address], 08/12/2018 13:34:52 08/12/20 18 08/12/2018 urina lysis , dipst ick, auto Unknown Analyte Negati ve Not Available [facility] [address], [place], [address], 08/12/2018 13:34:52 08/12/20 18 08/12/2018 urina lysis , dipst ick, auto Unknown Analyte Negati ve Not Available [facility] [address], [place], [address], 08/12/2018 13:34:52 08/12/20 18 08/12/2018 urina lysis , dipst ick, auto Unknown Analyte Negati ve Not Available [facility] [address], [place], [address], 08/12/2018 13:34:52 08/12/20 18 08/12/2018 urina lysis , dipst ick, auto Unknown Analyte Negati ve Not Available [facility] [address], [place], [address], 08/12/2018 13:34:52 08/12/20 18 08/12/2018 urina lysis , dipst ick, auto Unknown Analyte Clean Catch Not Available [facility] [address], [place], [address], 08/12/2018 13:34:52 08/12/20 18 08/12/2018 urina lysis , dipst ick, auto Unknown Analyte Automa román Not Available [facility] [address], [place], [address], 08/12/2018 13:34:52 12/13/19 22 12/12/2021 urina lysis panel , auto Unknown Analyte Clean Catch Not Available [facility] [address], [place], [address], 12/12/2021 14:27:59 12/13/19 22 12/12/2021 urina lysis panel , auto Unknown Analyte Yellow Not Available [facility] [address], [place], [address], 12/12/2021 14:27:59 12/13/19 22 12/12/2021 urina lysis panel , auto Unknown Analyte Clear Not Available [facility] [address], [place], [address], 12/12/2021 14:27:59 12/13/19 22 12/12/2021 urina lysis panel , auto Unknown Analyte 1.010 Not Available [facility] [address], [place], [address], 12/12/2021 14:27:59 12/13/19 22 12/12/2021 urina lysis panel , auto Unknown Analyte 1.003- 1.035 Not Available [facility] [address], [place], [address], 12/12/2021 14:27:59 12/13/19 22 12/12/2021 urina lysis panel , auto Unknown Analyte 6.0 Not Available [facility] [address], [place], [address], 12/12/2021 14:27:59 12/13/19 22 12/12/2021 urina lysis panel , auto Unknown Analyte 5.0-8. 0 Not Available [facility] [address], [place], [address], 12/12/2021 14:27:59 12/13/19 22 12/12/2021 urina lysis panel , auto Unknown Analyte Negati ve Not Available [facility] [address], [place], [address], 12/12/2021 14:27:59 12/13/19 22 12/12/2021 urina lysis panel , auto Unknown Analyte Negati ve Not Available [facility] [address], [place], [address], 12/12/2021 14:27:59 12/13/19 22 12/12/2021 urina lysis panel , auto Unknown Analyte Negati ve Not Available [facility] [address], [place], [address], 12/12/2021 14:27:59 12/13/19 22 12/12/2021 urina lysis panel , auto Unknown Analyte Negati ve Not Available [facility] [address], [place], [address], 12/12/2021 14:27:59 12/13/19 22 12/12/2021 urina lysis panel , auto Unknown Analyte Negati ve Not Available [facility] [address], [place], [address], 12/12/2021 14:27:59 12/13/19 22 12/12/2021 urina lysis panel , auto Unknown Analyte Negati ve Not Available [facility] [address], [place], [address], 12/12/2021 14:27:59 12/13/19 22 12/12/2021 urina lysis panel , auto Unknown Analyte >1000 mg/dl Not Available [facility] [address], [place], [address], 12/12/2021 14:27:59 12/13/19 22 12/12/2021 urina lysis panel , auto Unknown Analyte Normal Not Available [facility] [address], [place], [address], 12/12/2021 14:27:59 12/13/19 22 12/12/2021 urina lysis panel , auto Unknown Analyte Negati ve Not Available [facility] [address], [place], [address], 12/12/2021 14:27:59 12/13/19 22 12/12/2021 urina lysis panel , auto Unknown Analyte Negati ve Not Available [facility] [address], [place], [address], 12/12/2021 14:27:59 12/13/19 22 12/12/2021 urina lysis panel , auto Unknown Analyte Normal Not Available [facility] [address], [place], [address], 12/12/2021 14:27:59 12/13/19 22 12/12/2021 urina lysis panel , auto Unknown Analyte Normal 1 mg/dl Not Available [facility] [address], [place], [address], 12/12/2021 14:27:59 12/13/19 22 12/12/2021 urina lysis panel , auto Unknown Analyte Negati ve Not Available [facility] [address], [place], [address], 12/12/2021 14:27:59 12/13/19 22 12/12/2021 urina lysis panel , auto Unknown Analyte Negati ve Not Available [facility] [address], [place], [address], 12/12/2021 14:27:59 12/13/19 22 12/12/2021 urina lysis panel , auto Unknown Analyte Negati ve Not Available [facility] [address], [place], [address], 12/12/2021 14:27:59 12/13/19 22 12/12/2021 urina lysis panel , auto Unknown Analyte Negati ve Not Available [facility] [address], [place], [address], 12/12/2021 14:27:59 Result Notes None recorded. Problems No Known Problems Procedures Surgical History Date Name Laterality Status Provider Name and Address Organization Details Recorded Time 018 PNE Implantation; Sacral Nerve completed Yennifer Velazco [facility] 08/19/2018 14:10:27 018 Uroflowmetry; Complex completed [facility] 08/12/2018 12:01:40 018 Urodynamics Interpretation completed [facility] 08/12/2018 12:01:43 018 Urodynamics completed [facility] 08/12/2018 12:06:22 Cholecystectomy completed [facility] 08/12/2018 13:31:59 Hysterectomy completed [facility] 08/12/2018 13:32:10 Other completed [facility] 08/12/2018 13:33:48 Imaging Results None recorded. [...] Updated DateTime 12/12/2021 165.1 cm 34.9 kg/m2 04549.4 g Juju Hart [facility] 12/12/2021 14:27:21 Date Recorded Body height Body mass index (BMI) Body weight Heart rate Systolic And Diastolic Provider Name and Address Organization Details Last Updated DateTime 06/08/2019 165.1 cm 34.9 kg/m2 03631.4 g 79 /min 127/84 mm[Hg] Yennifer Meyersford [facility] 9 14:25:15 Date Recorded Body height Body mass index (BMI) Body weight Heart rate Systolic And Diastolic Provider Name and Address Organization Details Last Updated DateTime 07/25/2019 165.1 cm 34.9 kg/m2 78194.4 g 79 /min 126/88 mm[Hg] Briana Thorpe [facility] 07/25/2019 15:01:56 Social History Question Answer Notes LastModified by Organizat ion Details LastModified Time Tobacco Smoking Status [facility] 09:43:36 How Much Tobacco Do You [...] by Organization Details LastModified Time Father Arthritis [email or web address] Not availab le 01/11/2018 09:44:04 Father Kidney disease [email or web address] Not available 2017 09:44:13 Mother Hypertensive disorder [email or web address] Not available 2017 09:44:30 Medical History Condition [...] Y Immune System Disorder N Heart Attack ([place]) N Mental Illness N Neurological Problems N Diabetes Y Seizures/Epilepsy N Sleep Apnea Y Hypertension N Osteoporosis N Gynecological HistoryNo gynecological history recorded. Obstetrics History GPAL:G 0 P 0 0 0 0 Past Encounters Encounter ID Performer Location Encounter Start Date Encounter Closed Date Diagnosis/Indication Diagnosis SNOMED-CT Code Diagnosis ICD10 Code Diagnosis IMO Codes Diagnosis Note [id number] ARACELI FREGOSO MD [facility] [address] [place] [address] 01/11/2018 09:24:25 01/11/2018 12:56:20 Pain in left knee 2049575906 89511 M25.562 Knee pain 40476694 M25.5 62 [id number] ARACELI FREGOSO MD [facility] [address] [place] [address] 02/15/2018 10:05:26 02/15/2018 12:58:12 Contusion of left knee 2934796711 2467019 S80.02XD [id number] MD MADDY [facility] [address] [place] [address],[place] [address] 08/12/2018 10:12:32 08/12/2018 11:05:45 Urinary incontinence 266577955 R32 Patient demonstrat es bladder instabilit y with uninhibite d contractio ns stimulated throughout the filling phase with Valsalva. At capacity she demonstrat ed uninhibite d contractio ns with incontinen ce. She also demonstrat ed stress incontinen ce at capacity. [id number] MD [facility] [address] [facility] [place] [address] 08/12/2018 10:18:32 08/12/2018 13:53:18 Urge incontinence of urine 45114164 N39.41 As above Female uri nary stress incontinence 03782503 N39.3 As above [id number] JOMAR RAGSDALE MD [facility] [address] [place] [address] RD,[address] [place] [address] 08/17/2018 09:25:04 08/17/2018 10:24:18 Urge incontinence of urine 69413525 N39.41 Urgent nan chloé to urinate 87877488 R39.15 [id number] JOMAR RAGSDALE MD [facility] [address] [place] [address] RD,[place] [place] [address] 08/19/2018 09:35:58 08/19/2018 10:59:30 Urge incontinence of urine 91408010 N39.41 [id number] JOMAR RAGSDALE MD [facility] [address] [place] [address] RD,[address] [place] [address] 08/23/2018 15:38:43 08/23/2018 16:47:38 Urge incontinence of urine 05327504 N39.41 [id number] JOMAR RAGSDALE MD SURGERY SCHEDULE [address] [place] [place] [address] 09/05/2018 08:01:21 09/05/2018 08:02:27 Urge incontinence of urine 01259463 N39.41 [id number] MD MADDY [facility] [address] [place] [address] RD,[address] [place] [address] 0 06/08/2019 13:28:42 06/08/2019 14:36:11 Urge incontinence of urine 73259054 N39.41 Nocturia 605929992 R35.1 [id number] JOMAR RAGSDALE MD SURGERY SCHEDULE [address] [place] [address] 1 07/10/2019 06:24:04 07/10/2019 06:25:04 Urgent desire to urinate 09491452 R39.15 [id number] JOMAR RAGSDALE MD [facility] [address] [place] [address] RD,[place] [address] 07/25/2019 14:23:37 07/25/2019 15:10:30 Urge incontinence of urine 14901389 N39.41 [id number] JOMAR RAGSDALE MD [facility] [address] [place] [address] 12/12/2021 13:50:33 12/12/2021 14:42:57 Abdominal pain 79713022 R10.9 Urgent nan chloé to urinate 21919490 R39.15 Health Concerns Section Related Observation LastModified by Organization Detai ls LastModified Time None Recorded Concern Status LastModified by Organization Details LastModified Time None Recorded Advance Directives Directive None Recorded Payers Insurance Date Sequence Insurance Name Policy Number Policy Britton Covered Member ID Britton Member ID Guarantor Name 01/11/2018 [facility] [employer] [facility] Manisha Leija 07/31/2020 1 [facility]) [id number] Riley Leija [id number] Manisha Leija 12/08/2021 [employer] (MOVED TO HOLD) Manisha Leija 12/12/2021 1 [place]) [id number] Riley Leija [id number] Manisha Leija 12/16/2021 1 UMR [id number] Manisha Leija [id number] Manisha Leija Notes Date Note Type Note Provider Name and Address Organization Details Recorded Time 09/05/2018 text/html procedure was canceled due to elevated blood sugar [facility]AR [facility] [place], [address], [facility] 09/07/2018 10:27:48 06/08/2019 text/html she has [...] was 0-1 time [place], [address], [facility] 06/08/2019 17:12:58 07/25/2019 text/html she is back following the InterStim placement. The incisions are healing without any sign of infection. She is not having any urge incontinence. There is no significant frequency. She is very pleased with the improvement JOMAR RAGSDALE MD [address] [place], [address], [facility] 07/25/2019 15:31:36 12/12/2021 text/html she has [...] Gemtesa and arrange reprogramming with the [employer] home office representative. She continues to have difficulty we will cystoscope JOMAR RAGSDALE MD [address] [place], [address], [facility] 12/12/2021 14:55:46 OBGyn Episode No OBEpisode recorded.
--- OUTSIDE RECORDS SUMMARY | 2025-07-16 09:07 | XMS_ITS | Clinical Summary ---
Author Organization [facility] Address [address] [place] [address] Care Team Providers Care Boiler Repair Supervisor Name Role Phone Leann Wilks APRN Primary Care Provider [phone] Social History Tobacco Use Types Packs/Day Years [...] 06/01/2025, 02/05, 10/13/2024, Additional history exists Insurance [id number] [address] MEDICAID PENDING on file Care Teams Boiler Repair Supervisor Relationship Specialty Start Date End Date Leann Wilks APRN [address] [facility] [address] [place] [address] PCP - General Nurse Practitioner 08/12/20
--- OUTSIDE RECORDS SUMMARY | 2025-07-16 09:07 | XMS_ITS | Encounter Summary ---
Author Organization [facility] Address [address] [place] [address] Care Team Providers Care Securities Clerk Name Role Phone Alissa Faria WILTON Primary Care Provider [phone] Encounter Details Date Type Department Care Team (Late st Contact Info) Description 06/14/2025 Results [facility] [address] [place] [address] Vane Lim APRN [address] [place] [address] Social History Tobacco Use Types [...] Encounter Note - Vane Lim APRN - 07/13/2025 4:45 PM EST Your labs are acceptable to safely continue your current medications. In MyChart, you may show a value as ???abnormal?? or even have an ???!?? . Lab results show a set of numbers called a reference range. This range is based on normal test results of a large group of healthy people. Not everyone is typical. Healthy people may get results outside the normal range, while people with health problems may have results in the normal range. Also, lab numbers will not be the same every time - it's normal to vary. Even though you have some abnormal values, they are within an acceptable range for yourdisease process. We can discuss everything further at your next visit. * Result Encounter Note - Vane Lim [...] Visit [facility] [address] [place] [address] Vane Lim APRN [address] [place] [address] 09/21/2025 12:20 PM EST Office Visit [facility] Endocrinology [address] [place] [address] Nkechi Celeste, CERTIFIED APPLIANCE SERVICE TECHNICIAN [address] [facility] [address] [place] [address] documented as of this encounter Visit Diagnoses [...] documented as of this encounter Care Teams Securities Clerk Relationship Specialty Start Date End Date Alissa Faria APRN [address] [place] [address] PCP - General 04/17/24 documented as of this encounter
--- OUTSIDE RECORDS SUMMARY | 2025-07-16 09:07 | XMS_ITS | Encounter Summary ---
Author Organization [facility] Address [address] [place] [address] Care Team Providers Care Periodontist Name Role Phone Gustavo Fariaica WILTON Primary Care Provider [phone] Encounter Details Date Type Department Care Team (Late st Contact Info) Description 07/13/2025 Orders Only [facility] Medicine Specialties [address] [place] [address] Provider, [address] [address] Antiphospholipid antibody syndrome (CMS/HCC); High risk medication use Social History Tobacco Use Types Packs/Day Years [...] Description 09/14/2025 2:20 PM EST Office Visit [facility] Medicine Specialties [address] [place] [address] Lim, Vane M, BAG INSPECTOR [address] [place] [address] 09/21/2025 12:20 PM EST Office Visit [facility] Endocrinology [address] [place] [address] Nkechi Celeste, BAG INSPECTOR [address] [facility] [address] [place] [address] documented as of this encounter Procedures Procedure Name Priority Date/Time Associated Diagnosis Comments CREATININE, PLASMA Routine 07/13/2025 4: 43 PM EST Antiphospholipid antibody syndrome (CMS/HCC) High risk medication use HEPATIC FUNCTION PANEL Routine 07/13/2025 4:43 PM EST Antiphospholipid antibody syndrome (CMS/HCC) High risk medication use CBC WITH AUTO DIFFERENTIAL Routine 07/13/2025 4:35 PM EST Antiphospholipid antibody syndrome (CMS/HCC) High risk medication use documented in this encounter Results * Hepatic Function Panel (07/13/2025 4:43 PM EST) Blood Venous blood specimen / Unknown Vane Lim BAG INSPECTOR LAB BLOOD ORDERABLES Final Result Performing Organization Address City/[facility]/ZIP Co de Phone Number [facility] [address] [place] [address] * Creatinine, Plasma (07/13/2025 4:43 PM EST) Blood Venous blood specimen / Unknown Vane Lim BAG INSPECTOR LAB BLOOD ORDERABLES Final Result Performing Organization Address City/[facility]/ZIP Co de Phone Number [facility] [address] [place] [address] * CBC and Differential (07/13/2025 4:35 PM EST) Blood Venous blood specimen / Unknown Vane Lim BAG INSPECTOR LAB BLOOD ORDERABLES Final Result [facility] [address] [place] [address] documented in this encounter Visit Diagnoses Diagnosis Antiphospholipid antibody syndrome (CMS/HCC) Primary hypercoagulable state High risk medication use documented in this encounter Additional Health Concerns Assessment Noted Time PHQ-9 Depression Total Score: 0 06/08/20 25 10:48 AM EDT A fall risk assessment has been complete d for the patient 06/08/2025 10:48 AM EDT A Body Mass Index follow-up plan has been documented for the patient 06/08/2025 11:38 AM EDT documented as of this encounter Care Teams Periodontist Relationship Specialty Start Date End Date Alissa Faria APRN [address] [place] [address] PCP - General 04/17/24 documented as of this encounter
== END 2025-07-16 23:59 | disposition home or self-care (01) ==
LOC: RAD 08:55
PROVIDERS: PCP Family Medicine; Visit Provider Urology
DX: R39.198 Other difficulties with micturition (principal); R35.0 Frequency of micturition
CPT/HCPCS: 76857

== ENCOUNTER 2025-09-04 08:02 | Outpatient (CLI) | payer BC, SELFPAY ==
--- OUTSIDE RECORDS SUMMARY | 2025-06-08 09:30 | XMS_ITS | Encounter Summary ---
Author Organization [facility] Address [address] [place] [address] Care Team Providers Care Web Development Manager Name Role Phone Alissa Faria WILTON Primary Care Provider [phone] Reason for Visit * Reason Comments Antiphospholipid antibody syndrome (CMS/ HCC Encounter Details Date Type Department Care Team (Latest Contact Info) Description 06/08/2025 10:30 AM EDT Office Visit [facility] Special[facility] [address], [address] [place] [address] Josefa Lim APRN [address] [place] [address] Antiphospholipid antibody syndrome (CMS/HCC) (Primary [...] documented in this encounter Functional Status * BP Answer Date of Assessment Author 111/75 06/08/2025 10:43 AM EDT Lang Schultz * Temp Answer Date of Assessment Author 97.9 06/08/2025 10:43 AM EDT Lang Schultz * Pulse Answer Date of Assessment Author 73 06/08/2025 10:43 AM EDT Lang Schultz * Resp Answer Date of Assessment Author 16 06/08/2025 10:43 AM EDT Lang Schultz * SpO2 Answer Date of Assessment Author 97 06/08/2025 10:43 AM EDT Lang Schultz * Height Answer Date of Assessment Author 64 06/08/2025 10:43 AM EDT Lang Schultz * Weight Answer Date of Assessment Author 3375.68 06/08/2025 10:43 AM EDT Lang Schultz * BMI (Calculated) Answer Date of Assessment Author 36.3 06/08/2025 10:43 AM EBONYT Lang Schultz * Percent Excess Weight Loss Answer Date of Assessment Author 0 06/08/2025 10:43 AM EDLang Leonard * Total Weight Change Percent Answer Date of Assessment Author 22206/08/2025 10:43 AM EDT Lang Schultz * Weight Change Since Preop Answer Date of Assessment Author 95.68 06/08/2025 10:43 AM EDLang Leonard * Initial Excess Weight Answer Date of Assessment Author -54.43 06/08/2025 10:43 AM EDT Lang Schultz * IBW in lbs (Bariatric) Answer Date of Assessment Author 120 06/08/2025 10:43 AM EDT Lang Schultz * Weight Change Since Last Visit Answer Date of Assessment Author 95.68 06/08/2025 10:43 AM EDLang Leonard * IBW in kg (Bariatric) Answer Date of Assessment Author 54.43 06/08/2025 10:43 AM EDT Lang Schultz * Percent of IBW Answer Date of Assessment Author 6,201.87 06/08/2025 10:43 AM Lang Malin * EBW (kg) Answer Date of Assessment Author 3,374.14 06/08/2025 10:43 AM Lang Malin * EBW (lbs) Answer Date of Assessment Author 3,368.18 06/08/2025 10:43 AM Lang Malin * Weight Change 24 hrs Answer Date of Assessment Author 2.6 06/08/2025 10:43 AM Lang Malin * Depression Screening Question Answer Date of Assessment Author Will the patient answer the depression risk questions? Yes 06/08/2025 10:48 AM Lang Malin * BSA (Calculated - sq m) Answer Date of Assessment Author 2.08 06/08/2025 10:43 AM Lang Malin * BMI (Calculated) Answer Date of Assessment Author 36.2 06/08/2025 10:43 AM Lang Malin * IBW/kg (Calculated) Male Answer Date of Assessment Author 59.2 06/08/2025 10:43 AM EDLang Leonard * IBW/kg (Calculated) Female Answer Date of Assessment Author 54.7 06/08/2025 10:43 AM Lang Malin * Restart Vitals Timer Answer Date of Assessment Author Yes 06/08/2025 10:43 AM EDLang Leonard * IBW/kg (Calculated) Answer Date of Assessment Author 54.7 06/08/2025 10:43 AM Lang Malin * Over the past 2 weeks, how often have you been bothered by any of the following problems? Question Answer Date of Assessment Author Little interest or pleasure in doing things Not at all 06/08/2025 10:48 AM Lang Malin Feeling down, depressed, or hopeless Not at all 06/08/2025 10:48 AM Lang Malin Patient Health Questionnaire -2 Score 0 06/08/2025 10:48 AM Lang Malin * Over the past 2 weeks, how often have you been bothered by any of the following problems? Question Answer Date of Assessment Author Trouble falling or staying a sleep, or sleeping too much Not at all 06/08/2025 10:48 AM Lang Malin Feeling tired or having saida le energy Not at all 06/08/2025 10:48 AM Lang Malin Poor appetite or overeating Not at all 06/08/2025 10 :48 AM Lang Malin Feeling bad about yourself - or that you are a failure or have let yourself or your family down Not at all 06/08/2025 10:48 AM Lang Cespedes Trouble concentrating on thi ngs, such as reading the newspaper or watching television Not at all 06/08/2025 10:48 AM Lang Malin Moving or speaking so slowly that other people could have noticed. Or the opposite - being so fidgety or restless that you have been moving around a lot more than usual Not at all 06/08/2025 10:48 AM Lang Malin Thoughts that you would be b barbara off or hurting yourself in some way Not at all 06/08/2025 10:48 AM Lang Malin Patient Health Questionnaire -9 Score 0 06/08/2025 10:48 AM Lang Malin * How difficult have these problems made it for you to do your work, take care of things at home, or get along with other people? Answer Date of Assessment Author Not difficult at all 06/08/2025 10:48 AM Lang Monge * Weight in (lb) to have BMI = 25 Answer Date of Assessment Author 145.3 06/08/2025 10:43 AM Lang Malin * BMI (Calculated) Answer Date of Assessment Author 36.3 06/08/2025 10:43 AM Lang Malin * Percent Excess Weight Loss Answer Date of Assessment Author 0 06/08/2025 10:43 AM Lang Malin * Weight Change Since Preop Answer Date of Assessment Author 95.7 06/08/2025 10:43 AM Lang Malin * Initial Excess Weight Answer Date of Assessment Author -54.43 06/08/2025 10:43 AM Lang Malin * IBW in kg (Bariatric) Answer Date of Assessment Author 54.43 06/08/2025 10:43 AM Lang Malin * IBW in lb (Bariatric) Answer Date of Assessment Author 120 06/08/2025 10:43 AM Lang Malin * Weight Change Since Last Visit Answer Date of Assessment Author 95.7 06/08/2025 10:43 AM Lang Malin * Percent of IBW Answer Date of Assessment Author 175.82 06/08/2025 10:43 AM Lang Malin * EBW (kg) Answer Date of Assessment Author 41.25 06/08/2025 10:43 AM Lang Malin * EBW (lb) Answer Date of Assessment Author 90.98 06/08/2025 10:43 AM Lang Malin * Difference in Weight Since Last Visit Answer Date of Assessment Author 2.6 06/08/2025 10:43 AM Lang Malin * Temp (in Celsius) for WALES IV Answer Date of Assessment Author 36.6 06/08/2025 10:43 AM Lang Malin * IBW/kg (Calculated) Answer Date of Assessment Author 54.7 06/08/2025 10:43 AM Lang Malin * Adult Low Range Vt 6mL/kg Answer Date of Assessment Author 328.2 06/08/2025 10:43 AM Lang Malin * Adult Moderate Range Vt 8mL/kg Answer Date of Assessment Author 437.6 06/08/2025 10:43 AM EDLang Leonard * Adult High Range Vt 10mL/kg Answer Date of Assessment Author 547 06/08/2025 10:43 AM EDLang Leonard * Pain Score Answer Date of Assessment Author 5 06/08/2025 10:46 AM EDLang Leonard * Vitals Timer Question Answer Date of Assessment Author Restart Vitals Timer Yes 06/08/2025 10:43 AM EDLang Leonard * OVER THE LAST WEEK, were you able to: Question Answer Date of Assessment Author Dress yourself, including ty ing shoelaces and doing buttons? 0 06/08/2025 10:00 AM Lang Cespedes Get in and out of bed? 0 06/08/2025 10:00 A M Lang Malin Lift a full cup or glass to your mouth? 0 06/08/2025 10:00 AM Lang Malin Walk outdoors on flat ground? 0 06/08/2025 10:00 AM EDLang Leonard Wash and dry your entire body? 0 06/08/2025 10:00 AM Lang Malin Bend down to picking crew supervisor clothin g from the floor? 0 06/08/2025 10:00 AM EDLang Leonard Turn regular faucets on and off? 0 06/08/20 10:00 AM EDLang Leonard Get in and out of a car, bus , train or airplane? 0 06/08/2025 10:00 AM EDLang Leonard Walk two miles or three kilo meters, if you wish? 0 06/08/2025 10:00 AM EDLang Leonard Participate in recreational activities and sports as you would like, if you wish? 1 06/08/2025 10:00 AM EDLang Leonard Get a good night s sleep? 3 06/08/2025 10:00 AM EDLang Leonard Deal with feelings of anxiet y or being nervous? 0 06/08/2025 10:00 AM EDLang Leonard Deal with feelings of depres ceci or feeling blue? 0 06/08/2025 10:00 AM EDT Lang Schultz * How much pain have you had because of your condition OVER THE PAST WEEK? Question Answer Date of Assessment Author Pain Severity: 8 06/08/2025 10:00 AM EDT Lang Rogers * Considering all the ways in which illness and health conditions may affect you at this time, pleaseindicate how you are doing. Question Answer Date of Assessment Author Overall Wellbein 06/08/2025 10:00 AM ED T Lang Schultz * RAPID3 Score Question Answer Date of Assessment Author Score (0-10) 8.3 06/08/2025 10:00 AM EDT Lang Covington Interpretation Moderate Severity (MS) 06/08/2025 10:00 AM EDT Lang Schultz * Pain Screening/Additional Assessments Question Answer Date of Assessment Author Pain Screening/Assessments Pain Screening 06/08/2025 1 0:46 AM Lang Malin * Pain Screening Answer Date of Assessment Author 0-10 06/08/2025 10:46 AM EDLang Leonard * BP Answer Date of Assessment Author 111/75 06/08/2025 10:43 AM Lang Malin * Temp Answer Date of Assessment Author 97.9 06/08/2025 10:43 AM Lang Malin * Pulse Answer Date of Assessment Author 73 06/08/2025 10:43 AM Lang Malin * Resp Answer Date of Assessment Author 16 06/08/2025 10:43 AM Lang Malin * SpO2 Answer Date of Assessment Author 97 06/08/2025 10:43 AM Lang Malin * Height Answer Date of Assessment Author 64 06/08/2025 10:43 AM Lang Malin * Weight Answer Date of Assessment Author 3375.68 06/08/2025 10:43 AM Lang Malin * BSA (Calculated - sq m) Answer Date of Assessment Author 2.08 06/08/2025 10:43 AM Lang Malin * BMI (Calculated) Answer Date of Assessment Author 36.2 06/08/2025 10:43 AM Lang Malin * Restart Vitals Timer Answer Date of Assessment Author Yes 06/08/2025 10:43 AM Lang Malin * Over the past 2 weeks, how often have you been bothered by any of the following problems? Question Answer Date of Assessment Author Little interest or pleasure in doing things Not at all 06/08/2025 10:48 AM Lang Malin Feeling down, depressed, or hopeless Not at all 06/08/2025 10:48 AM Lang Malin Patient Health Questionnaire -2 Score 0 06/08/2025 10:48 AM Lang Malin * Over the past 2 weeks, how often have you been bothered by any of the following problems? Question Answer Date of Assessment Author Trouble falling or staying a sleep, or sleeping too much Not at all 06/08/2025 10:48 AM Lang Malin Feeling tired or having saida le energy Not at all 06/08/2025 10:48 AM Lang Malin Poor appetite or overeating Not at all 06/08/2025 10 :48 AM Lang Malin Feeling bad about yourself - or that you are a failure or have let yourself or your family down Not at all 06/08/2025 10:48 AM Lang Cespedes Trouble concentrating on thi ngs, such as reading the newspaper or watching television Not at all 06/08/2025 10:48 AM Lang aMlin Moving or speaking so slowly that other people could have noticed. Or the opposite - being so fidgety or restless that you have been moving around a lot more than usual Not at all 06/08/2025 10:48 AM Lang Malin Thoughts that you would be b barbara off or hurting yourself in some way Not at all 06/08/2025 10:48 AM Lang Malin Patient Health Questionnaire -9 Score 0 06/08/2025 10:48 AM Lang Malin * How difficult have these problems made it for you to do your work, take care of things at home, or get along with other people? Answer Date of Assessment Author Not difficult at all 06/08/2025 10:48 AM EDT Lang Garcia * Weight in (lb) to have BMI = 25 Answer Date of Assessment Author 145.3 06/08/2025 10:43 AM EDT Lang Schultz * Pain Score Answer Date of Assessment Author 5 06/08/2025 10:46 AM EDT Lang Schultz * Learning Needs Screening Question Answer Date of Assessment Author Are there things (barriers) that make it harder for this patient to learn? No Barriers 06/08/2025 10:47 AM EDT Lang Schultz What is the best language to use for teaching this patient about his/her health? Lao 06/08/2025 10:47 AM EDT Wero Schultz i What format does this patien t think is most helpful for learning? Demonstration 06/08/2025 10:47 AM EDT Lang Schultz Primary Learner Patient 06/08/2025 10:47 AM EDT A Lang [place] * Readiness to Learn Question Answer Date of Assessment Author Readiness Acceptance 06/08/2025 10:47 AM EDT Lang Covington documented as of this encounter Mental Status * BP Answer Entry Date Author 111/75 06/08/2025 10:43 AM EDT Lang Schultz * Temp Answer Entry Date Author 97.9 06/08/2025 10:43 AM EDT Lang Schultz * Pulse Answer Entry Date Author 73 06/08/2025 10:43 AM EDT Lang Schultz * Resp Answer Entry Date Author 16 06/08/2025 10:43 AM EDT Lang Schultz * SpO2 Answer Entry Date Author 97 06/08/2025 10:43 AM EDT Lang Schultz * Height Answer Entry Date Author 64 06/08/2025 10:43 AM EDLang Leonard * Weight Answer Entry Date Author 3375.68 06/08/2025 10:43 AM EDT Lang Schultz * BMI (Calculated) Answer Entry Date Author 36.3 06/08/2025 10:43 AM EDT Lang Schultz * Percent Excess Weight Loss Answer Entry Date Author 0 06/08/2025 10:43 AM EDT Lang Schultz * Total Weight Change Percent Answer Entry Date Author 2222 06/08/2025 10:43 AM EDT Lang Schultz * Weight Change Since Preop Answer Entry Date Author 95.68 06/08/2025 10:43 AM EDT Lang Schultz * Initial Excess Weight Answer Entry Date Author -54.43 06/08/2025 10:43 AM EDT Lang Schultz * IBW in lbs (Bariatric) Answer Entry Date Author 120 06/08/2025 10:43 AM EDT Lang Schultz * Weight Change Since Last Visit Answer Entry Date Author 95.68 06/08/2025 10:43 AM EDT Lang Schultz * IBW in kg (Bariatric) Answer Entry Date Author 54.43 06/08/2025 10:43 AM EDT Lang Schultz * Percent of IBW Answer Entry Date Author 6,201.87 06/08/2025 10:43 AM EDT Lang Schultz * EBW (kg) Answer Entry Date Author 3,374.14 06/08/2025 10:43 AM EDT Lang Schultz * EBW (lbs) Answer Entry Date Author 3,368.18 06/08/2025 10:43 AM EDT Lang Schultz * Weight Change 24 hrs Answer Entry Date Author 2.6 06/08/2025 10:43 AM EDT Lang Schultz * Depression Screening Question Answer Entry Date Author Will the patient answer the depression risk questions? Yes 06/08/2025 10:48 AM EDT Lang Schultz * BSA (Calculated - sq m) Answer Entry Date Author 2.08 06/08/2025 10:43 AM EDT Lang Schultz * BMI (Calculated) Answer Entry Date Author 36.2 06/08/2025 10:43 AM EDT Lang Schultz * IBW/kg (Calculated) Male Answer Entry Date Author 59.2 06/08/2025 10:43 AM EDT Lang Schultz * IBW/kg (Calculated) Female Answer Entry Date Author 54.7 06/08/2025 10:43 AM EDT Lang Schultz * Restart Vitals Timer Answer Entry Date Author Yes 06/08/2025 10:43 AM EDT Lang Schultz * IBW/kg (Calculated) Answer Entry Date Author 54.7 06/08/2025 10:43 AM EDLang Leonard * Over the past 2 weeks, how often have you been bothered by any of the following problems? Question Answer Entry Date Author Little interest or pleasure in doing things Not at all 06/08/2025 10:48 AM EDLang Leonard Feeling down, depressed, or hopeless Not at all 06/08/2025 10:48 AM EDT Lang Schultz Patient Health Questionnaire -2 Score 0 06/08/2025 10:48 AM EDT Lang Schultz * Over the past 2 weeks, how often have you been bothered by any of the following problems? Question Answer Entry Date Author Trouble falling or staying a sleep, [...] down Not at all 06/08/2025 10:48 AM EDLang Pabon Trouble concentrating on thi ngs, such as reading the newspaper or watching television Not at all 06/08/2025 10:48 AM EDLang Leonard Moving or speaking so slowly that other people could have noticed. Or the opposite - being so fidgety or restless that you have been moving around a lot more than usual Not at all 06/08/2025 10:48 AM Lang Malin Thoughts that you would be b barbara off or hurting yourself in some way Not at all 06/08/2025 10:48 AM EDLang Leonard Patient Health Questionnaire -9 Score 0 06/08/2025 10:48 AM EDLang Leonard * [facility] Concern Calculation Answer Entry Date Author 3 06/08/2025 10:48 AM EDT Lang Schultz * How difficult have these problems made it for you to do your work, take care of things at home, or get along with other people? Answer Entry Date Author Not difficult at all 06/08/2025 10:48 AM EDT Lang Garcia * Restart Pain Assessment Timer Answer Entry Date Author Yes 06/08/2025 10:46 AM EDT Lang Schultz * Weight in (lb) to have BMI = 25 Answer Entry Date Author 145.3 06/08/2025 10:43 AM EDT Lang Schultz * BMI (Calculated) Answer Entry Date Author 36.3 06/08/2025 10:43 AM EDT Lang Schultz * Percent Excess Weight Loss Answer Entry Date Author 0 06/08/2025 10:43 AM EDT Lang Schultz * Weight Change Since Preop Answer Entry Date Author 95.7 06/08/2025 10:43 AM EDT Lang Schultz * Initial Excess Weight Answer Entry Date Author -54.43 06/08/2025 10:43 AM EDT Lang Schultz * IBW in kg (Bariatric) Answer Entry Date Author 54.43 06/08/2025 10:43 AM EDT Lang Schultz * IBW in lb (Bariatric) Answer Entry Date Author 120 06/08/2025 10:43 AM EDT Lang Schultz * Weight Change Since Last Visit Answer Entry Date Author 95.7 06/08/2025 10:43 AM EDT Lang Schultz * Percent of IBW Answer Entry Date Author 175.82 06/08/2025 10:43 AM EDT Lang Schultz * EBW (kg) Answer Entry Date Author 41.25 06/08/2025 10:43 AM EDT Lang Schultz * EBW (lb) Answer Entry Date Author 90.98 06/08/2025 10:43 AM EDT Lang Schultz * Difference in Weight Since Last Visit Answer Entry Date Author 2.6 06/08/2025 10:43 AM EDT Lang Schultz * Temp (in Celsius) for WALES IV Answer Entry Date Author 36.6 06/08/2025 10:43 AM EDT Lang Schultz * IBW/kg (Calculated) Answer Entry Date Author 54.7 06/08/2025 10:43 AM EDT Caroline Schultzuri * Adult Low Range Vt 6mL/kg Answer Entry Date Author 328.2 06/08/2025 10:43 AM EDT Skyeb Lang * Adult Moderate Range Vt 8mL/kg Answer Entry Date Author 437.6 06/08/2025 10:43 AM EDT Lang Schultz * Adult High Range Vt 10mL/kg Answer Entry Date Author 547 06/08/2025 10:43 AM EDT Caroline Schultzuri * Pain Score Answer Entry Date Author 5 06/08/2025 10:46 AM EDT Lang Schultz * Vitals Timer Question Answer Entry Date Author Restart Vitals Timer Yes 06/08/2025 10:43 AM EDT Lang Schultz * Pain Screening Answer Entry Date Author 0-10 06/08/2025 10:46 AM EDT Lang Schultz documented in this encounter Miscellaneous Notes * Addendum Note [...] patient will be having a EGD in [place] by 12/23/23. The patient does not have a history of blood clots. The patient also reports that she has had increased pain and is constantly in pain. The patient was ruled out for MS years ago by neurology d/t no lesions on the brain. [...] hx of TB. 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 The patient reports increased neuropathy in her [...] file Social Connections: Unknown (06/14/2023) Received from [facility] Family and Community Support Help with Day-to-Day Activities: Not on file Lonely or Isolated: Not on file Intimate Partner Violence: Unknown (06/14/2023) Received from [facility] Abuse Screen Unsafe at Home or Work/School: Not on file Feels Threatened by Someone?: Not on file Does Anyone Keep You from Contacting Others or Doint Things Outside the Home?: Not on file Physical Sign of Abuse Present: Not on file Housing Stability: Unknown (06/14/2023) Received from [facility] Housing Stability Current Living Arrangements: Not [...] -- -- -- -- Tender (ENGLAND-28) 0 / 28 0 / 28 0 / 28 1 / 28 Swollen (ENGLAND-28) 0 / 28 0 / 28 0 / 28 0 / 28 Provider Global -- -- -- -- Patient Global -- -- -- -- ESR -- -- -- -- CRP -- -- -- -- Swollen Joint Count: Swollen: 0 Tender Joint Count: Tender: 3 Patient global assessment: /010 Rapid 3 score: 8.3 CDAI: Pt reports % improvement while on current medication Assessment/Plan Diagnosis Plan 1. Antiphospholipid antibody syndrome (CMS/HCC) CBC and Differential Creatinine, Plasma Hepatic Function Panel aspirin (Tykoon Aspirin) 325 MG tablet Antinuclear Antibody (JOAN), [...] dRVVT assays -Rx ASA 325 mg-Will prevent CVA/DE -Educated that on a long plane/car ride at high risk of stroke/DE (get up and moved every couple ofhours)-will [...] RANDA, UA, urine protein/crea normal -JOAN-, Chambers-, MEDICAL SALES REPRESENTATIVE-, SSA-, SSB-, centromere ab- at PCP -Rheumatological [...] and is currently seeing [facility]. Mot[facility].10, GFR 52--current 06/08/25 [...] Date BLADDER SURGERY N/A Bladder Surgery from [facility] GALLBLADDER SURGERY N/A Anastomosis Of Gallbladder from [facility] HYSTERECTOMY N/A Hysterectomy from [facility] OTHER SURGICAL HISTORY N/A Exploratory Laparoscopy from [facility] WISDOM TOOTH EXTRACTION N/A Oral Surgery Tooth Extraction Mullin Tooth from [facility] [3] Family History Problem Relation Name Age of Onset Stroke Other Diabetes Other Hypertension Other Other cancer Other Multiple sclerosis Maternal Cousin Rheum arthritis Father Conrad De Paz Diabetes Father Conrad [place] Autoimmune disease Father Conrad De Paz rhuematoid arthritis Kidney disease Mother jessica de paz kidney disease Asthma Maternal Grandmother jessica stark Autoimmune disease Maternal Grandmother jessica stark asthma Autoimmune disease Paternal Grandmother Pamela de paz cancer Autoimmune disease Father's Brother Warren De Paz cancer [4] Allergies Allergen Reactions Metformin Nausea [...] hr tablet cholecalciferol (Vitamin D-3) 1.25 MG (48691 UT) capsule TAKE 1 CAPSULE Weekly clobetasol [...] daily. 90 tablet 3 ergocalciferol 1.25 MG (68896 UT) capsule furosemide (Lasix) 80 MG tablet [...] Description 09/14/2025 2:20 PM EST Office Visit [facility] Medicine Specialties [address], [address] [place] [phone] Josefa Lim APRN [address] [facility] [address] [place] [address] 09/21/2025 12:20 PM EST Office Visit [facility] Endocrinology [address] [place] [id number] Nkechi Celeste APRN [address] [place] [phone] documented as of this encounter Results * Hepatic Function Panel (07/13/2025 4:43 PM EST) Blood Venous blood specimen / Unknown Josefa Lim SENIOR PRICING ANALYST LAB BLOOD ORDERABLES Final Result Performing Organization Address [facility] Co de Phone Number [facility] [address] [place] [address] * Creatinine, Plasma (07/13/2025 4:43 PM EST) Blood Venous blood specimen / Unknown Josefa Lim SENIOR PRICING ANALYST LAB BLOOD ORDERABLES Final Result Performing Organization Address [facility] de Phone Number [facility] [address] [place] [address] * CBC and Differential (07/13/2025 4:35 PM EST) Blood Venous blood specimen / Unknown Josefa Karimilinconsuelo DUTTONN LAB BLOOD ORDERABLES Final Result Performing Organization Address [facility] de Phone Number [facility] [address] [place] [address] * (ABNORMAL) Urinalysis with reflex microscopic (Culture NOT Included) (06/08/2025 11:57 AM EDT) Color, Urine Yellow LAB URINALYSIS - AUTOMATED METHOD 06/08/2025 1:43 PM EDT [facility] Clarity, Urine Clear LAB URINALYSIS - AUTOMATED METHOD 06/08/2025 1:43 PM EDT [facility] Spec Wilbur, Urine 1.030 1.005 - 1.030 LAB URINALYSIS - AUTOMATED METHOD 06/08/2025 1:43 PM EDT [facility] pH, Urine 5.5 5.0 - 8.0 LAB URINALYSIS - AUTOMATED METHOD 06/08/2025 1:43 PM EDT [facility] Protein, Urine Negative Negative mg/dL LAB URINALYSIS - AUTOMATED METHOD 06/08/2025 1:43 PM EDT [facility] Glucose, Urine 500(A) Negative mg/dL LAB URINALYSIS - AUTOMATED METHOD 06/08/2025 1:43 PM EDT [facility] Ketones, Urine Trace(A) Negative mg/dL LAB URINALYSIS - AUTOMATED METHOD 06/08/2025 1:43 PM EDT [facility] Blood, Urine Negative Negative LAB URINALYSIS - AUTOMATED METHOD 06/08/2025 1:43 PM EDT [facility] Bilirubin, Urine Negative Negative LAB URINALYSIS - AUTOMATED METHOD 06/08/2025 1:43 PM EDT [facility] Urobilinogen, Urine 0.2 0.2 to 1.0 mg/dL LAB URINALYSIS - AUTOMATED METHOD 06/08/2025 1:43 PM EDT [facility] Leukocytes, Urine Small(A) Negative LAB URINALYSIS - AUTOMATED METHOD 06/08/2025 1:43 PM EDT [facility] Nitrite, Urine Negative Negative LAB URINALYSIS - AUTOMATED METHOD 06/08/2025 1:43 PM EDT [facility] RBC, Urine 1 0 to 3 /HPF LAB URINALYSIS - AUTOMATED METHOD 06/08/2025 1:43 PM EDT [facility] WBC, Urine 0 - 5 0 to 5 /HPF LAB URINALYSIS - AUTOMATED METHOD 06/08/2025 1:43 PM EDT [facility] Squamous Epithelial Cells 3 - 5 0 to 5 /HPF LAB URINALYSIS - AUTOMATED METHOD 06/08/2025 1:43 PM EDT [facility] Hyaline Casts 0 - 2 0 to 5 /LPF LAB URINALYSIS - AUTOMATED METHOD 06/08/2025 1:43 PM EDT [facility] Bacteria, Urine Present Negative LAB URINALYSIS - AUTOMATED METHOD 06/08/2025 1:43 PM EDT [facility] Urine Urine specimen obtained by clean catch procedure / Unknown Non-blood Collection / Unknown 06/08/2025 11:57 AM EDT 06/08/2025 11:57 AM EDT us Josefa Lim APRN LAB URINE ORDERABLES Final Result [facility] [address] [place] [address] * Thyroid Peroxidase Antibody (06/08/2025 11:57 AM EDT) Thyroid Peroxidase Antibody <5 <=8 IU/mL 06/08/2025 4:18 PM EDT [facility] Blood Venous blood specimen / Unknown Venipuncture / Unknown 06/08/2025 11:57 AM EDT 06/08/2025 11:57 AM EDT Josefa Lim APRN LAB BLOOD ORDERABLES Final Result Performing Organization Address City/[facility]/ZIP Co de Phone Number [facility] [address] [place] [address] * Chambers (RANDA) Antibody, IgG (06/08/2025 11:57 AM EDT) Chambers (RANDA) Antibody, IgG 4 0 - 40 AU/mL 06/10/2025 3:57 PM EDT [facility] ([facility]) Serum 06/08/2025 11:5 7 AM EDT 06/08/2025 11:57 AM EDT Narrative [facility] ([place]) - 06/10/2025 3:57 PM EDT [...] associations with SLE clinical manifestations. Performed By: [employer] [address] [place] [address] Commercial Horticulture Instructor: Chaz Marcelo MD, PhD CLIA Number: [id number] Josefa Lim APRN LAB REF LAB BLOOD AND FLUI D ORD Final Result Performing Organization Address City/[facility]/ZIP Co de Phone Number [facility] [employer]) [address] [place] [address] * Protein, Random, Urine with Creatinine (06/08/2025 11:57 AM EDT) Protein, Urine 14 mg/dL 06/08/2025 1:51 PM EDT [facility] Creatinine, Urine 138 mg/dL 06/08/2025 1:51 PM EDT [facility] Protein/Creatin ine Ratio 0.1 mg/mg Creat 06/08/2025 1:51 PM EDT [facility] Urine Urine specimen obtained by clean catch procedure / Unknown Non-blood Collection / Unknown 06/08/2025 11:57 AM EDT 06/08/2025 11:57 AM EDT Josefa Lim SENIOR PRICING ANALYST LAB URINE ORDERABLES Final Result [facility] [address] [place] [address] * ENAII (06/08/2025 11:57 AM EDT) SSA-52 (RO52) (RANDA) Antibody, IgG 2 0 - 40 AU/mL 06/12/2025 10:00 AM EDT [facility] ([place]) SSA-60 (RO60) (RANDA) Antibody, IgG 1 0 - 40 AU/mL 06/12/2025 10:00 AM EDT [facility] ([place]) SSB (LA) (RANDA) Antibody, IgG 1 0 - 40 AU/mL 06/12/2025 10:00 AM EDT [facility] ([place]) Blood Venous blood specimen / Unknown Venipuncture / Unknown 06/08/2025 11:57 AM EDT 06/08/2025 11:57 AM EDT Narrative [facility] ([place]) - 06/12/2025 10:00 AM EDT INTERPRETIVE INFORMATION: [...] (PSS) also have this antibody. Performed By: [employer] [address] [place] [address] Commercial Horticulture Instructor: Chaz Marcelo MD, PhD CLIA Number: [id number] us Josefa Lim SENIOR PRICING ANALYST LAB BLOOD ORDERABLES Final Result [facility] [employer]) [address] [place], [place] [id number] * ENAI (06/08/2025 11:57 AM EDT) Chambers/MEDICAL SALES REPRESENTATIVE (RANDA) Ab, IgG 4 0 - 19 Units 06/12/2025 10:59 PM EDT [facility] [employer] [facility]) Blood Venous blood specimen / Unknown Venipuncture / Unknown 06/08/2025 11:57 AM EDT 06/08/2025 11:57 AM EDT Narrative [facility] GARCIA) - 06/12/2025 10:59 PM EDT INTERPRETIVE INFORMATION: Chambers/MEDICAL SALES REPRESENTATIVE (RANDA) Antibody, IgG 19 Units or Less ............. Negative 20 to 39 Units ............... Weak Positive 40 to 80 Units ............... Moderate Positive 81 Units or greater .......... Strong Positive Chambers/MEDICAL SALES REPRESENTATIVE antibodies are frequently seen in patients with mixed connective tissue disease (MCTD) and are also associated with other systemic autoimmune rheumatic diseases (SARDs) such as systemic lupus erythematosus (SLE), systemic sclerosis, and myositis. Antibodies targeting the Chambers/MEDICAL SALES REPRESENTATIVE antigenic complex also recognize Chambers antigens, therefore, the Chambers antibody response must be considered when interpreting these results. Performed By: [employer] [address] [place] [id number] Commercial Horticulture Instructor: Chaz Marcelo MD, PhD CLIA Number: [id number] Josefa Lim APRN LAB BLOOD ORDERABLES Final Result [employer] ([facility]) [address] [place] [id number] * C4 Complement (06/08/2025 11:57 AM EDT) C4 Complement 15 13 - 36 mg/dL 06/08/2025 3:33 PM EDT [facility] Blood Venous blood specimen / Unknown Venipuncture / Unknown 06/08/2025 11:57 AM EDT 06/08/2025 11:57 AM EDT Josefa Lim APRN LAB BLOOD ORDERABLES Final Result [facility] [address] [place] [address] * C3 Complement (06/08/2025 11:57 AM EDT) C3 Complement 126 84 - 166 mg/dL 06/08/2025 3:33 PM EDT [facility] Blood Venous blood specimen / Unknown Venipuncture / Unknown 06/08/2025 11:57 AM EDT 06/08/2025 11:57 AM EDT us Josefa Lim APRN LAB BLOOD ORDERABLES Final Result [facility] [address] [place] [address] * Double-Stranded DNA (dsDNA) Antibody, IgG by IFA (06/08/2025 11:57 AM EDT) Double-Strande d DNA (dsDNA) Ab IgG IFA <1:10 <1:10 06/14/2025 12:26 AM EDT [facility] ([place]) Blood Venous blood specimen / Unknown Venipuncture / Unknown 06/08/2025 11:57 AM EDT 06/08/2025 11:57 AM EDT Narrative [facility] ([place]) - 06/14/2025 12:26 AM EDT INTERPRETIVE INFORMATION: [...] recommendations for testing may be found at [email or web address]. Performed By: [employer] [address] [place] [address] Commercial Horticulture Instructor: Chaz Marcelo MD, PhD CLIA Number: [id number] us Josefa Lim APRN LAB BLOOD ORDERABLES Final Result [facility] ([place]) [address] [place] [address] * Antinuclear Antibody (JOAN), HEp-2, IgG (06/08/2025 11:57 AM EDT) JOAN INTERPRETIVE COMMENT See Note 06/12/2025 2:44 PM EDT [facility] ([place]) Anti Nuc Ab Screen <1:80 <1:80 06/12/2025 2:44 PM EDT [facility] ([place]) Blood Venous blood specimen / Unknown Venipuncture / Unknown 06/08/2025 11:57 AM EDT 06/08/2025 11:57 AM EDT Narrative [facility] ([place]) - 06/12/2025 2:44 PM EDT Clinical Interpretation: [...] not necessarily rule out SARD. Performed By: [employer] [address] [place] [id number] Commercial Horticulture Instructor: Chaz Marcelo MD, PhD CLIA Number: [id number] Josefa Lim SENIOR PRICING ANALYST LAB BLOOD ORDERABLES Final Result [facility] [employer] [address] [place] [address] * (ABNORMAL) Hepatic Function Panel (06/08/2025 11:57 AM EDT) Direct Bilirubin, Plasma <0.2 <=0.3 mg/dL 06/08/2025 2:08 PM EDT [facility] Alkaline Phosphatase, Plasma 105(H) 35 - 104 U/L 06/08/2025 2:08 PM EDT [facility] Total Bilirubin, Plasma 0.4 0.2 - 1.1 mg/dL 06/08/2025 2:08 PM EDT [facility] Albumin, Plasma 4.2 3.5 - 5.2 g/dL 06/08/2025 2:08 PM EDT [facility] Total Protein 7.4 6.3 - 7.9 g/dL 06/08/2025 2:08 PM EDT [facility] ALT, Plasma 39(H) 10 - 35 U/L 06/08/2025 2:08 PM EDT [facility] AST, Plasma 38(H) 10 - 35 U/L 06/08/2025 2:08 PM EDT [facility] Blood Venous blood specimen / Unknown Venipuncture / Unknown 06/08/2025 11:57 AM EDT 06/08/2025 11:57 AM EDT us Josefa Lim SENIOR PRICING ANALYST LAB BLOOD ORDERABLES Final Result [facility] [address] [place] [address] * Creatinine, Plasma (06/08/2025 11:57 AM EDT) Creatinine, Plasma 0.76 0.60 - 1.10 mg/dL 06/08/2025 2:08 PM EDT [facility] eGFRcr 94.4 mL/min/1.7 3m*2 06/08/2025 2:08 PM EDT [facility] Comment:Reported eGFRcr in m L/min/1.73m2 is based the CKD-EPI 2020 equation that does not use a race coefficient. Blood Venous blood specimen / Unknown Venipuncture / Unknown 06/08/2025 11:57 AM EDT 06/08/2025 11:57 AM EDT us Josefa Lim SENIOR PRICING ANALYST LAB BLOOD ORDERABLES Final Result [facility] [address] [place] [address] * (ABNORMAL) CBC and Differential (06/08/2025 11:57 AM EDT) WBC Count 5.97 3.70 - 10.30 10*3/uL LAB HEMATOLOGY METHOD 06/08/2025 1:57 PM EDT [facility] RBC Count 5.21(H) 3.90 - 5.20 10*6/uL LAB HEMATOLOGY METHOD 06/08/2025 1:57 PM EDT [facility] HGB 13.7 11.2 - 15.7 g/dL LAB HEMATOLOGY METHOD 06/08/2025 1:57 PM EDT [facility] HCT 42.9 34.0 - 45.0 % LAB HEMATOLOGY METHOD 06/08/2025 1:57 PM EDT [facility] Platelet Count 174 155 - 369 10*3/uL LAB HEMATOLOGY METHOD 06/08/2025 1:57 PM EDT [facility] MCV 82 79 - 98 fL LAB HEMATOLOGY METHOD 06/08/2025 1:57 PM EDT [facility] MCH 26.3 26.0 - 32.0 pg LAB HEMATOLOGY METHOD 06/08/2025 1:57 PM EDT [facility] MCHC 31.9 30.7 - 35.5 g/dL LAB HEMATOLOGY METHOD 06/08/2025 1:57 PM EDT [facility] RDW 15.4(H) 11.5 - 14.5 % LAB HEMATOLOGY METHOD 06/08/2025 1:57 PM EDT [facility] MPV 10.6 8.8 - 12.5 fL LAB HEMATOLOGY METHOD 06/08/2025 1:57 PM EDT [facility] nRBC 0.0 <=0.0 per 100 WBCs LAB HEMATOLOGY METHOD 06/08/2025 1:57 PM EDT [facility] Differential Type Automated LAB HEMATOLOGY METHOD 06/08/2025 1:57 PM EDT [facility] Neutrophils % 57 % LAB HEMATOLOGY METHOD 06/08/2025 1:57 PM EDT [facility] Lymphocytes % 31 % LAB HEMATOLOGY METHOD 06/08/2025 1:57 PM EDT [facility] Monocytes % 6 % LAB HEMATOLOGY METHOD 06/08/2025 1:57 PM EDT [facility] Eosinophils % 3 % LAB HEMATOLOGY METHOD 06/08/2025 1:57 PM EDT [facility] Basophils % 2 % LAB HEMATOLOGY METHOD 06/08/2025 1:57 PM EDT [facility] Immature Granulocytes % 1 % LAB HEMATOLOGY METHOD 06/08/2025 1:57 PM EDT [facility] Neutrophils Absolute 3.46 1.60 - 6.10 10*3/uL LAB HEMATOLOGY METHOD 06/08/2025 1:57 PM EDT [facility] Lymphocytes Absolute 1.84 1.20 - 3.90 10*3/uL LAB HEMATOLOGY METHOD 06/08/2025 1:57 PM EDT [facility] Monocytes Absolute 0.35 0.30 - 0.90 10*3/uL LAB HEMATOLOGY METHOD 06/08/2025 1:57 PM EDT [facility] Eosinophils Absolute 0.19 0.00 - 0.50 10*3/uL LAB HEMATOLOGY METHOD 06/08/2025 1:57 PM EDT [facility] Basophils Absolute 0.09 0.00 - 0.10 10*3/uL LAB HEMATOLOGY METHOD 06/08/2025 1:57 PM EDT [facility] Immature Granulocytes Absolute 0.04 0.00 - 0.06 10*3/uL LAB HEMATOLOGY METHOD 06/08/2025 1:57 PM EDT [facility] Blood Venous blood specimen / Unknown Venipuncture / Unknown 06/08/2025 11:57 AM EDT 06/08/2025 11:57 AM EDT [facility] - 06/08/2025 1:57 PM EDT Therapeutic decision making should be based on absolute values, rather than percentages. us Josefa Lim SENIOR PRICING ANALYST LAB BLOOD ORDERABLES Final Result [facility] [address] [place] [address] documented in this encounter Visit Diagnoses Diagnosis [...] documented as of this encounter Care Teams Web Development Manager Relationship Specialty Start Date End Date Alissa Faria APRN [address] [place] [address] PCP - General 04/17/24 documented as of this encounter
--- NOTE | 2025-09-04 08:00 | MM_ITS ---
PROCEDURE INFORMATION: Exam: MG Bilateral Screening 3D Mammography Exam date and time: 09/04/2025 8:05 AM Age: 55 years old Clinical indication: Screening examination TECHNIQUE: Imaging protocol: Bilateral Screening tomosynthesis and 2D mammography including computer-aided detection (CAD) when performed. COMPARISON: 1. MG MM DIG SCREENING MAMM BI W/CAD 08/15/2024 8:18 AM 2. MG MM DIG SCREENING MAMM BI W/CAD 08/12/2023 2:50 PM FINDINGS: MAMMOGRAPHY: Breast composition: There are scattered areas of fibroglandular density. Mass: None. Architectural distortion: None. Calcifications: No suspicious calcifications. Asymmetric density: 2.0 cm asymmetry in the posterior right upper outer quadrant Skin thickening: None. Axillary adenopathy: None. IMPRESSION: Patient to be recalled for spot compression views of the right breast in the CC and MLO projections, a full 90 degree lateral view, and right breast ultrasound for further evaluation of a right breast asymmetry. ASSESSMENT: BI-RADS Category 0: Incomplete- Need Additional Imaging Evaluation
--- OUTSIDE RECORDS SUMMARY | 2025-09-04 08:05 | XMS_ITS | Encounter Summary ---
Author Organization [place] [address] Care Team Providers Care Sewage Disposal Worker Name Role Phone Amy Ervin MD Unavailable [phone] Anshul Stephen MD Primary Care Provider [phone] Luis Daniel Silvestre MD Unavailable [phone] Encounter Details Date Type Department Care Team (Late st Contact Info) Description 06/15/2017 Orders Only [facility] [address] [facility] [address] [place] [address] Luis Daniel Silvestre MD [address] [place] [address] Social History Tobacco Use Types [...] Silvestre MD CARDIAC CATH ORDERABLES Final Result [facility] [address] [place] [address] documented in this encounter Visit Diagnoses Not on filedocumented in this encounter Care Teams Sewage Disposal Worker Relationship Specialty Start Date End Date Anshul Stephen MD [address] [place] [address] PCP - General Emergency Medicine 05/20/17 Amy Ervin MD [address] [place] [address] [place] [address] Consulting Physician Internal Medicine - Clinical Cardiac Electrophysiology 05/20/17 07/25/17 Luis Daniel Silvestre MD [address] [place] [address] Consulting Physician Internal Medicine - Clinical Cardiac Electrophysiology 07/26/17 documented as of this encounter
--- OUTSIDE RECORDS SUMMARY | 2025-09-04 08:05 | XMS_ITS | Encounter Summary ---
Author Organization [facility] Address [address] [place] [address] Care Team Providers Care Fruit Peeler Name Role Phone Alissa Faria APRN Primary Care Provider [phone] Encounter Details Date Type Department Care Team (Late st Contact Info) Description 07/04/2025 Telephone [facility] [address], [address] [place] [address] Aleyda Haji, RN CH-VASCULAR & INTERVENTIONAL RADIOLOGY None Social History Tobacco Use Types Packs/Day Years [...] done tomorrow. Adv I would check with [facility] next week. * Telephone Encounter - Aleyda Haij RN - 07/04/2025 9:46 AM EDT Faxed lab orders to [facility] at fax [phone]. * Telephone Encounter - Aleyda Haji RN - 07/04/2025 9:43 AM EDT Spoke with patient, adv that we need labs 1mo after starting ASA. Pt requested to have lab orders sent to [facility]. Adv to let us know once [...] Description 09/14/2025 2:20 PM EST Office Visit [facility] Medicine Specialties [address], [address] [place] [address] Vane Lim APRN [address] [place] [address] 09/21/2025 12:20 PM EST Office Visit [facility] Endocrinology [address] [place] [address] Nkechi Celeste APRN [address] [place] [address] documented as of this encounter Visit Diagnoses [...] documented as of this encounter Care Teams Fruit Peeler Relationship Specialty Start Date End Date Alissa Faria APRN [address] [place] [address] PCP - General 04/17/24 documented as of this encounter
--- OUTSIDE RECORDS SUMMARY | 2025-09-04 08:05 | XMS_ITS | Clinical Summary ---
Author Organization [facility] Address [address] [place] [address] Care Team Providers Care Food Preparation Worker Name Role Phone Leann Wilks APRN Primary Care Provider [phone] Social History Tobacco Use Types Packs/Day Years [...] 06/01/2025, 02/05, 10/13/2024, Additional history exists Insurance [address] [address] MEDICAID PENDING on file Care Teams Food Preparation Worker Relationship Specialty Start Date End Date Leann Wilks APRN [address] [facility] [address] [place] [address] PCP - General Nurse Practitioner 08/12/20
--- OUTSIDE RECORDS SUMMARY | 2025-09-04 08:05 | XMS_ITS | Clinical Summary ---
Author Organization [facility] Address [address] [place] [address] Care Team Providers Care Digital Media Strategist Name Role Phone Alissa Faria APRN Primary Care Provider [phone] Allergies Active Allergy Reactions Criticality Noted Date Comments Metformin Nausea,Diarrhea High 09/30/2023 Medications pramipexole (Mirapex) 0.125 MG tablet 08/16/20 20 Active albuterol 108 (90 Base) MCG/ACT inhaler 08/19/20 20 Active cholecalciferol (Vitamin D-3) 1.25 MG (95777 UT) capsule TAKE 1 CAPSULE Weekly 08/16/20 [...] MG tablet 07/13/20 Active ergocalciferol 1.25 MG (03119 UT) capsule 06/22/20 Active clobetasol (Temovate) 0.05 [...] with other specified complication, unspecified whether terminal gauger supervisor insulin use Test 2 times each day, Dx E11.9 1 kit 07/07/20 24 Active Glucose Blood (Blood Glucose Test) stripIndication s:Type 2 diabetes mellitus with other specified complication, unspecified whether care home insulin use Use as directed to test blood glucose level 2 times per day or to calibrate CGM DX E11.9 100 strip 3 07/07/20 24 Active Lancets miscIndications :Type 2 diabetes mellitus with other specified complication, unspecified whether care home insulin use Use to test blood glucose [...] complication, unspecified whether care home insulin use Take 1 tablet by mouth daily. 90 tablet 3 03/02/20 25 026 Active tirzepatide (Mounjaro) 7.5 MG/0.5ML solution auto-injector solution pen-injectorInd ications:Type 2 Diabetes Mellitus Inject 0.5 mL under the skin 1 time per week. 2 mL 5 06/01/20 25 026 Active glipiZIDE (Glucotrol) 10 MG tabletIndicatio ns:Type 2 diabetes mellitus with other specified complication, unspecified whether care home insulin use Take 1 tablet by mouth daily before breakfast. 90 tablet 3 06/01/20 25 026 Active Continuous Glucose Transmitter (Dexcom G6 transmitter) miscIndications :Type 2 diabetes mellitus with other specified complication, unspecified whether care home insulin use Use as instructed with Dexcom G6 sensor, change every 90 days 1 each 06/01/20 25 Active Continuous Glucose Sensor (Dexcom G6 Sensor) miscIndications :Type 2 diabetes mellitus with other specified complication, unspecified whether terminal gauger supervisor insulin use 1 sensor every 10 days. 9 each 3 06/01/20 25 026 Active insulin glargine (Lantus SoloStar) 100 UNIT/ML injection penIndications: Type 2 diabetes mellitus with other specified complication, unspecified whether terminal gauger supervisor insulin use INJECT 40 UNITS SUBCUTANEOUSLY [...] Department Care Team Description 07/13/2025 Orders Only [facility] Medicine Specialties [address], [address] [place] [address] Provider, Historical Antiphospholipid antibody syndrome ([facility]); High risk medication use 07/04/2025 Telephone [facility] Medicine Specialties [address], [address] [place] [address] Aleyda Haji, RN 06/14/2025 Results Follow-Up [facility] Medicine Specialties [address], [facility] [place] [address] Vane Lim APRN 06/08/2025 10:30 AM EDT Office Visit [facility] Medicine Specialties [address], [address] [place] [address] Vane Lim, WILTON Antiphospholipid antibody syndrome (CMS/HCC) (Primary Dx); Positive JOAN (antinuclear antibody); Psoriasis, unspecified; High risk medication use; Type 2 diabetes mellitus with other specified complication, without long-term current use of insulin; Stage 2 chronic kidney disease 06/08/2025 Travel from Last 3 Months Immunizations Immunization [...] Visit [facility] Medicine Specialties [address], [address] [place] [address] Vane Lim, EXIT BOOTH AGENT [address] [place] [address] 09/21/2025 12:20 PM EST Office Visit [facility] [address] [place] [address] Nkechi Celeste, EXIT BOOTH AGENT [address] [place] [address] Health Maintenance Due Date Last Done Comments [...] PPSV23, PCV20, or PCV21) 09/02/2017 07/19/2017, 07/08/2017 [facility]-KBHCD-06 Vaccine (3 - Moderna risk series) 01/29/2021 01/01/2021, 12/04/2020 [facility]-Breast Cancer Screening 2022 03/23/2013 [facility]-Zoster Vaccines (1 of 2) 2022 [facility]-Influenza Vaccine (#1) 2025 07/19/2017 [facility]-Diabetes: Hemoglobin A1C 11/29/2025, 03/02/2025, 10/13/2024, Additional history exists [facility]-Depression Screening 06/08/2026 06/08/2025, 11/2024 [facility]-Hepatitis C Screening Completed 12/21/2023 [facility]-Obesity Intervention Completed 025, 06/01/2025, 06/01/2025, Additional history exists HPV Vaccines (No Doses Required) Completed [facility]-HIB Vaccines Aged Out No longer e [...] of insulin Stage 2 chronic kidney disease CHAMBERS/PIT MANAGER (RANDA) ANTIBODY, IGG (SO) Routine 06/08/2025 11:57 [...] with other specified complication, unspecified whether terminal gauger supervisor insulin use (CMS/HCC) ACUTE HEPATITIS PANEL [...] Venous blood specimen / Unknown Vane Lim [facility] LAB BLOOD ORDERABLES Final Result Performing Organization Address [facility] de Phone Number [facility] [address] [place] [address] * Hepatic Function Panel (07/13/2025 4:43 PM EST) Only the most recent of2 resultswithin the time period is included. Blood Venous blood specimen / Unknown Vane Lim APRN LAB BLOOD ORDERABLES Final Result Performing Organization Address [facility] Co de Phone Number [facility] [address] [place] [address] * CBC and Differential (07/13/2025 4:35 PM EST) Only the most recent of2 resultswithin the time period is included. Blood Venous blood specimen / Unknown Vane Lim APRN LAB BLOOD ORDERABLES Final Result [facility] [address] [place] [address] * Urinalysis Microscopic Examination (06/08/2025 11:57 AM EDT) Urine Urine specimen obtained by clean catch procedure / Unknown Non-blood Collection / Unknown 06/08/2025 11:57 AM EDT 06/08/2025 11:57 AM EDT Vane Lim APRN LAB URINE ORDERABLES Final Result Performing Organization Address City/[facility] Co de Phone Number [facility] [address] [place] [address] * Chambers (RANDA) Antibody, IgG (06/08/2025 11:57 AM EDT) Chambers (RANDA) Antibody, IgG 4 0 - 40 AU/mL 06/10/2025 3:57 PM EDT [facility] (JAIDEN) Serum 06/08/2025 11:5 7 AM EDT 06/08/2025 11:57 AM EDT Narrative [facility] (JAIDEN) - 06/10/2025 3:57 PM EDT INTERPRETIVE [...] associations with SLE clinical manifestations. Performed By: [facility] [address] [place] [address] Car Painter: Chaz Marcelo MD, PhD CLIA Number: [id number] Vane Lim APRN LAB REF LAB BLOOD AND FLUI D ORD Final Result [facility] ([facility]) [address] [place] [address] * ENAII (06/08/2025 11:57 AM EDT) SSA-52 (RO52) (RANDA) Antibody, IgG 2 0 - 40 AU/mL 06/12/2025 10:00 AM EDT [facility] ([facility]) SSA-60 (RO60) (RANDA) Antibody, IgG 1 0 - 40 AU/mL 06/12/2025 10:00 AM EDT [facility] ([facility]) SSB (LA) (RANDA) Antibody, IgG 1 0 - 40 AU/mL 06/12/2025 10:00 AM EDT [facility] ([facility]) Blood Venous blood specimen / Unknown Venipuncture / Unknown 06/08/2025 11:57 AM EDT 06/08/2025 11:57 AM EDT Narrative [facility] ([facility]) - 06/12/2025 10:00 AM EDT INTERPRETIVE INFORMATION: [...] (PSS) also have this antibody. Performed By: [facility] [address] [place] [address] Car Painter: Chaz Marcelo MD, PhD CLIA Number: [id number] us Vane Lim EXIT BOOTH AGENT LAB BLOOD ORDERABLES Final Result [facility] ([facility]) [address] [place] [address] * ENAI (06/08/2025 11:57 AM EDT) Chambers/PIT MANAGER (RANDA) Ab, IgG 4 0 - 19 Units 06/12/2025 10:59 PM EDT [facility] ([facility]) Blood Venous blood specimen / Unknown Venipuncture / Unknown 06/08/2025 11:57 AM EDT 06/08/2025 11:57 AM EDT Narrative [facility] ([facility]) - 06/12/2025 10:59 PM EDT INTERPRETIVE INFORMATION: Chambers/PIT MANAGER (RANDA) Antibody, IgG 19 Units or Less ............. Negative 20 to 39 Units ............... Weak Positive 40 to 80 Units ............... Moderate Positive 81 Units or greater .......... Strong Positive Chambers/PIT MANAGER antibodies are frequently seen in patients with mixed connective tissue disease (MCTD) and are also associated with other systemic autoimmune rheumatic diseases (SARDs) such as systemic lupus erythematosus (SLE), systemic sclerosis, and myositis. Antibodies targeting the Chambers/PIT MANAGER antigenic complex also recognize Chambers antigens, therefore, the Chambers antibody response must be considered when interpreting these results. Performed By: [facility] [address] [place] [address] Car Painter: Chaz Marcelo MD, PhD CLIA Number: [id number] Vane Lim APRN LAB BLOOD ORDERABLES Final Result Performing Organization Address City/[facility]/ZIP Co de Phone Number [facility] ([facility]) [address] [place] [address] * Thyroid Peroxidase Antibody (06/08/2025 11:57 AM EDT) Pathologist [facility] Thyroid Peroxidase Antibody <5 <=8 IU/mL 06/08/2025 4:18 PM EDT [facility] Blood Venous blood specimen / Unknown Venipuncture / Unknown 06/08/2025 11:57 AM EDT 06/08/2025 11:57 AM EDT Vane Lim EXIT BOOTH AGENT LAB BLOOD ORDERABLES Final Result [facility] [address] [place] [address] * Double-Stranded DNA (dsDNA) Antibody, IgG by IFA (06/08/2025 11:57 AM EDT) Pathologist [facility] Double-Strande d DNA (dsDNA) Ab IgG IFA <1:10 <1:10 06/14/2025 12:26 AM EDT [facility] ([facility]) Blood Venous blood specimen / Unknown Venipuncture / Unknown 06/08/2025 11:57 AM EDT 06/08/2025 11:57 AM EDT Narrative [facility] [employer]) - 06/14/2025 12:26 AM EDT INTERPRETIVE INFORMATION: [...] recommendations for testing may be found at https://whodoyou/content/yrvlwbzlpz-ribcnv-miskacvh. Performed By: [facility] [address] [place] [address] Car Painter: Chaz Marcelo MD, PhD CLIA Number: [id number] Vane Lim APRN LAB BLOOD ORDERABLES Final Result [facility] (JAIDEN) [address] [place] [address] * Protein, Random, Urine with Creatinine (06/08/2025 11:57 AM EDT) Protein, Urine 14 mg/dL 06/08/2025 1:51 PM EDT [facility] Creatinine, Urine 138 mg/dL 06/08/2025 1:51 PM EDT [facility] Protein/Creatin ine Ratio 0.1 mg/mg Creat 06/08/2025 1:51 PM EDT [facility] Urine Urine specimen obtained by clean catch procedure / Unknown Non-blood Collection / Unknown 06/08/2025 11:57 AM EDT 06/08/2025 11:57 AM EDT Vane Lim APRN LAB URINE ORDERABLES Final Result [facility] [address] [facility] [place] [address] * (ABNORMAL) Urinalysis with reflex microscopic (Culture NOT Included) (06/08/2025 11:57 AM EDT) Color, Urine Yellow LAB URINALYSIS - AUTOMATED METHOD 06/08/2025 1:43 PM EDT [facility] Clarity, Urine Clear LAB URINALYSIS - AUTOMATED METHOD 06/08/2025 1:43 PM EDT [facility] Spec [employer], Urine 1.030 1.005 - 1.030 LAB URINALYSIS - AUTOMATED METHOD 06/08/2025 1:43 PM EDT [facility] pH, Urine 5.5 5.0 - 8.0 LAB URINALYSIS - AUTOMATED METHOD 06/08/2025 1:43 PM EDT [facility] Protein, Urine Negative Negative mg/dL LAB URINALYSIS - AUTOMATED METHOD 06/08/2025 1:43 PM EDT [facility] Glucose, Urine 500(A) Negative mg/dL LAB URINALYSIS - AUTOMATED METHOD 06/08/2025 1:43 PM EDT [facility] Ketones, Urine Trace(A) Negative mg/dL LAB URINALYSIS - AUTOMATED METHOD 06/08/2025 1:43 PM EDT [facility] Blood, Urine Negative Negative LAB URINALYSIS - AUTOMATED METHOD 06/08/2025 1:43 PM EDT [facility] Bilirubin, Urine Negative Negative LAB URINALYSIS - AUTOMATED METHOD 06/08/2025 1:43 PM EDT [facility] Urobilinogen, Urine 0.2 0.2 to 1.0 mg/dL LAB URINALYSIS - AUTOMATED METHOD 06/08/2025 1:43 PM EDT [facility] Leukocytes, Urine Small(A) Negative LAB URINALYSIS - AUTOMATED METHOD 06/08/2025 1:43 PM EDT [facility] Nitrite, Urine Negative Negative LAB URINALYSIS - AUTOMATED METHOD 06/08/2025 1:43 PM EDT [facility] RBC, Urine 1 0 to 3 /HPF LAB URINALYSIS - AUTOMATED METHOD 06/08/2025 1:43 PM EDT [facility] WBC, Urine 0 - 5 0 to 5 /HPF LAB URINALYSIS - AUTOMATED METHOD 06/08/2025 1:43 PM EDT [facility] Squamous Epithelial Cells 3 - 5 0 to 5 /HPF LAB URINALYSIS - AUTOMATED METHOD 06/08/2025 1:43 PM EDT [facility] Hyaline Casts 0 - 2 0 to 5 /LPF LAB URINALYSIS - AUTOMATED METHOD 06/08/2025 1:43 PM EDT [facility] Bacteria, Urine Present Negative LAB URINALYSIS - AUTOMATED METHOD 06/08/2025 1:43 PM EDT [facility] Urine Urine specimen obtained by clean catch procedure / Unknown Non-blood Collection / Unknown 06/08/2025 11:57 AM EDT 06/08/2025 11:57 AM EDT Vane Lim APRN LAB URINE ORDERABLES Final Result Performing Organization Address City/[facility]/ZIP Co de Phone Number [facility] [address] [place] [address] * C3 Complement (06/08/2025 11:57 AM EDT) C3 Complement 126 84 - 166 mg/dL 06/08/2025 3:33 PM EDT [facility] Blood Venous blood specimen / Unknown Venipuncture / Unknown 06/08/2025 11:57 AM EDT 06/08/2025 11:57 AM EDT Vane Lim APRN LAB BLOOD ORDERABLES Final Result Performing Organization Address City/[facility] Co de Phone Number [facility] [address] [place] [address] * C4 Complement (06/08/2025 11:57 AM EDT) C4 Complement 15 13 - 36 mg/dL 06/08/2025 3:33 PM EDT [facility] Blood Venous blood specimen / Unknown Venipuncture / Unknown 06/08/2025 11:57 AM EDT 06/08/2025 11:57 AM EDT Vane Lim APRN LAB BLOOD ORDERABLES Final Result Performing Organization Address City/[facility] Co de Phone Number [facility] [address] [place] [address] * Antinuclear Antibody (JOAN), HEp-2, IgG (06/08/2025 11:57 AM EDT) JOAN INTERPRETIVE COMMENT See Note 06/12/2025 2:44 PM EDT [facility] (JAIDEN) Anti Nuc Ab Screen <1:80 <1:80 06/12/2025 2:44 PM EDT [facility] (JAIDEN) Blood Venous blood specimen / Unknown Venipuncture / Unknown 06/08/2025 11:57 AM EDT 06/08/2025 11:57 AM EDT Narrative [facility] HERNAN GARCIA) - 06/12/2025 2:44 PM [...] not necessarily rule out SARD. Performed By: [facility] [address] [place], [place] [id number] Car Painter: Chaz Marcelo MD, PhD CLIA Number: [id number] us Vane Lim EXIT BOOTH AGENT LAB BLOOD ORDERABLES Final Result [facility] RADHA) [address] [id number] * POCT glycosylated hemoglobin (Hb A1C) (06/01/2025 12:47 PM EDT) POCT Hemoglobin A1C 6.8 <5.7% Non-Diabet ic % [facility] Kit Lot Number 934 [facility] Kit Expiration Date 04/2027 [facility] Blood Venous blood specimen / Unknown 06/01/2025 12:47 PM EDT Nkechi Celeste EXIT BOOTH AGENT POINT OF CARE TEST ENTER /EDIT ORDERABLES Final Result Performing Organization Address City/[facility]/ZIP Co de Phone Number [facility] [address] [place] [address] * Acute Hepatitis Panel (12/21/2023 11:06 AM EDT) [facility] Hepatitis B Surf Antigen Negative Negative [...] EDT 12/21/2023 11:07 AM EDT Vane Lim EXIT BOOTH AGENT LAB BLOOD ORDERABLES Final Result Performing Organization Address City/[facility] Co de Phone Number [facility] [address] [place] [address] from Last 3 Months or Most Recently Relevant to Health Maintenance Insurance ANTHEM Care Teams Digital Media Strategist Relationship Specialty Start Date End Date Alissa Faria APRN [address] [place] [address] PCP - General 04/17/24
--- OUTSIDE RECORDS SUMMARY | 2025-09-04 08:05 | XMS_ITS | Encounter Summary ---
Author Organization [facility] Address [address] [place] [address] Care Team Providers Care Station Repairer Name Role Phone Alissa Faria WILTON Primary Care Provider Encounter Details Date Type Department Care Team (Late st Contact Info) Description 06/14/2025 Results [facility]Up [facility] [address], [address] [place] [address] Vane Lim APRN [address] [place] [address] Social History Tobacco Use Types [...] Description 09/14/2025 2:20 PM EST Office Visit [facility] [address], [address] [place] [address] Vane Lim APRN [address] [place] [phone] 09/21/2025 12:20 PM EST Office Visit [facility] Endocrinology [address] [place] [address] Nkechi Celeste, HYGIENE TEACHER [address] [place] [address] documented as of this encounter Visit Diagnoses [...] documented as of this encounter Care Teams Station Repairer Relationship Specialty Start Date End Date Alissa Faria, WILTON [address] [place], [place] [id number] PCP - General 04/17/24 documented as of this encounter
--- OUTSIDE RECORDS SUMMARY | 2025-09-04 08:05 | XMS_ITS | Encounter Summary ---
Author Organization [facility] Address [address] [place] [address] Care Team Providers Care Pattern Drafter Name Role Phone Gustavo Fariaica WILTON Primary Care Provider [phone] Encounter Details Date Type Department Care Team (Late st Contact Info) Description 07/13/2025 Orders Only [facility] Medicine Specialties [address] [place] [address] Provider, [address] [address] Antiphospholipid antibody syndrome (CMS/HCC); High [...] Description 09/14/2025 2:20 PM EST Office Visit [facility] Medicine Specialties [address] [place] [address] Lim, Vane M, PAVING FOREMAN [address] [place] [phone] 09/21/2025 12:20 PM EST Office Visit [facility] Endocrinology [address] [place] [address] Nkechi Celeste, PAVING FOREMAN [address] [facility] [address] [place] [address] documented as of this encounter [...] Venous blood specimen / Unknown Vane Lim PAVING FOREMAN LAB BLOOD ORDERABLES Final Result Performing Organization Address City/[facility]/ZIP Co de Phone Number [facility] [address] [place] [address] * Creatinine, Plasma (07/13/2025 4:43 PM EST) Blood Venous blood specimen / Unknown Vane Lim PAVING FOREMAN LAB BLOOD ORDERABLES Final Result Performing Organization Address City/[facility]/ZIP Co de Phone Number [facility] [address] [place] [address] * CBC and Differential (07/13/2025 4:35 PM EST) Blood Venous blood specimen / Unknown us Vane Lim PAVING FOREMAN LAB BLOOD ORDERABLES Final Result [facility] [address] [place] [address] documented in this encounter Visit Diagnoses Diagnosis [...] documented as of this encounter Care Teams Pattern Drafter Relationship Specialty Start Date End Date Alissa Faria APRN [address] [place] [address] PCP - General 04/17/24 documented as of this encounter
--- OUTSIDE RECORDS SUMMARY | 2025-09-04 08:05 | XMS_ITS | Data Portability ---
Author Organization [facility] MARÍA ELENA IssaS [place] CLOS[place] Address [address] [place] [address] Care Team Providers Care Ingot Stripper Name Role Phone PETEY MIRANDA Primary Care Provider DMITRY AMBRIZ Audiologist Unavailable Assessment Encounter Date Assessment Date Assessment [...] The needle insertion site was closed with [id number] suture of 4-0 monocryl. Dressings were applied. Patient tolerated the procedure well, left the operating room in satisfactory condition. [email or web address] Not available 07/11/2019 03:13:58 Plan of Treatment Reminders Order Date Submit Date Provider Last Modified By Organization Details Last Modified Time Details Appointments RECHECK 2025 09:15A Kiera ARITA MD Not available Not available Not available Lab urinalysi s panel, auto 2021 022 [facility], [address] [place] [address], [address], [place], [address], 12/12/2021 14:55:13 urinalysi s, dipstick, auto 2018 019 [facility], [address] [place] [address], [address], [place], [address], 07/25/2019 15:31:24 urinalysi s, dipstick, auto 2018 019 [facility], [address], [address], [place], [address], 06/08/2019 17:12:55 Referral None recorded. Procedures None recorded. Surgeries interstim continenc e control therapy, permanent (SURG) 2018 [email or web address] [facility], [address], [facility] [address], [place], [address], 06/15/2019 15:02:52 Imaging None recorded. Medication Orders Percocet 5 mg-325 mg tablet 2018 019 [email or web address] [facility], [address], [place], [place], [id number], 07/25/2019 15:02:06 cefadroxi l 500 mg capsule 2018 019 [email or web address] [facility], [address], [place], [id number], 07/25/2019 15:02:02 Patient TargetsNo targets recorded. Patient Instructions Encounter Date Encounter Id Patient Instructions Last Modified By Organization Details Last Modified Time 09/05/2018 [id number] Urge In[facility]ence: [facility] 09/07/2018 10:27:33 06/08/2019 [id number] Urge Incontinence: Care Instructions adley Not available 06/08/2019 17:12:55 07/25/2019 [id number] learning about healthy weight fhadley Not available 07/25/2019 15:31:24 Urge Incontinence: [facility] Not available 07/25/2019 15:31:24 Reason for Referral None Reported. Results Created Date Observation Date Name Description Value Unit Range Abnormal Flag Note LastModifiedBy Organization Detail LastModifiedTime 07/25/2007/25/2019 urina lysis , dipst ick, auto Unknown Analyte Yellow Not Available [facility] [address], [address], 07/25/2019 15:02:40 07/25/2007/25/2019 urina lysis , dipst ick, auto Unknown Analyte Clear Not Available [facility] [address], [address], 07/25/2019 15:02:40 07/25/2007/25/2019 urina lysis , dipst ick, auto Unknown Analyte 1.015 Not Available [facility] With [address], [address], 07/25/2019 15:02:40 07/25/20 19 07/25/2019 urina lysis , dipst ick, auto Unknown Analyte 1.003 - 1.035 Not Available [facility] [address], [place], [address], 07/25/2019 15:02:40 07/25/20 19 07/25/2019 urina lysis , dipst ick, auto Unknown Analyte 5.0 Not Available [facility] [address] [place] [address] Rd [address], [place], [address], 07/25/2019 15:02:40 07/25/2007/25/2019 urina lysis , dipst ick, auto Unknown Analyte 5.0 - 8.0 Not Available [facility] With [address], [place], [address], 07/25/2019 15:02:40 07/25/20 19 07/25/2019 urina lysis , dipst ick, auto Unknown Analyte Negati ve Not Available [facility] With [address], [place], [address], 07/25/2019 15:02:40 07/25/20 19 07/25/2019 urina lysis , dipst ick, auto Unknown Analyte Negati ve Not Available [facility] With [address], [place], [address], 07/25/2019 15:02:40 07/25/2007/25/2019 urina lysis , dipst ick, auto Unknown Analyte Negati ve Not Available [facility] With [address], [place], [address], 07/25/2019 15:02:40 07/25/2007/25/2019 urina lysis , dipst ick, auto Unknown Analyte Negati ve Not Available [facility] [address], [place], [address], 07/25/2019 15:02:40 07/25/2007/25/2019 urina lysis , dipst ick, auto Unknown Analyte Negtiv e Not Available [facility] [address], [place], [address], 07/25/2019 15:02:40 07/25/2007/25/2019 urina lysis , dipst ick, auto Unknown Analyte Negati ve - Trace Not Available [facility] With [address], [place], [address], 07/25/2019 15:02:40 07/25/2007/25/2019 urina lysis , dipst ick, auto Unknown Analyte Normal Not Available [facility] With [address], [place], [address], 07/25/2019 15:02:40 07/25/2007/25/2019 urina lysis , dipst ick, auto Unknown Analyte Normal Not Available [facility] With [address], [place], [address], 07/25/2019 15:02:40 07/25/2007/25/2019 urina lysis , dipst ick, auto Unknown Analyte Negati ve Not Available [facility] With [address], [place], [address], 07/25/2019 15:02:40 07/25/2007/25/2019 urina lysis , dipst ick, auto Unknown Analyte Negati ve Not Available [facility] [address], [place], [address], 07/25/2019 15:02:40 07/25/20 19 07/25/2019 urina lysis , dipst ick, auto Unknown Analyte Normal Not Available [facility] [address], [place], [address], 07/25/2019 15:02:40 07/25/2007/25/2019 urina lysis , dipst ick, auto Unknown Analyte Normal - 1mg/dl Not Available [facility] With [address], [place], [address], 07/25/2019 15:02:40 07/25/2007/25/2019 urina lysis , dipst ick, auto Unknown Analyte Negati ve Not Available [facility] [address], [place], [address], 07/25/2019 15:02:40 07/25/20 19 07/25/2019 urina lysis , dipst ick, auto Unknown Analyte Negati ve Not Available [facility] [address], [place], [address], 07/25/2019 15:02:40 07/25/2007/25/2019 urina lysis , dipst ick, auto Unknown Analyte Negati ve Not Available [facility] [address], [place], [address], 07/25/2019 15:02:40 07/25/2007/25/2019 urina lysis , dipst ick, auto Unknown Analyte Negati ve Not Available [facility] [address] [place] [address] [address], [place], [address], 07/25/2019 15:02:40 07/25/2007/25/2019 urina lysis , dipst ick, auto Unknown Analyte Clean Catch Not Available [facility] [address] [place] [address] [address], [place], [address], 07/25/2019 15:02:40 07/25/2007/25/2019 urina lysis , dipst ick, auto Unknown Analyte Automa román Not Available [facility] [address], [address], 07/25/2019 15:02:40 06/08/2006/08/2019 urina lysis , dipst ick, auto Unknown Analyte Yellow Not Available [facility] With [address], [place], [address], 06/08/2019 14:26:55 06/08/2006/08/2019 urina lysis , dipst ick, auto Unknown Analyte Clear Not Available [facility] [address] [place] [address] [address], [place], [address], 06/08/2019 14:26:55 06/08/2006/08/2019 urina lysis , dipst ick, auto Unknown Analyte 1.020 Not Available [facility] [address] [place] [address] [address], [place], [address], 06/08/2019 14:26:55 06/08/2006/08/2019 urina lysis , dipst ick, auto Unknown Analyte 1.003 - 1.035 Not Available [facility] [address], [place], [address], 06/08/2019 14:26:55 06/08/2006/08/2019 urina lysis , dipst ick, auto Unknown Analyte 5.0 Not Available [facility] With [address], [place], [address], 06/08/2019 14:26:55 06/08/2006/08/2019 urina lysis , dipst ick, auto Unknown Analyte 5.0 - 8.0 Not Available [facility] [address], [place], [address], 06/08/2019 14:26:55 06/08/2006/08/2019 urina lysis , dipst ick, auto Unknown Analyte Negati ve Not Available [facility] [address], [address], 06/08/2019 14:26:55 06/08/2006/08/2019 urina lysis , dipst ick, auto Unknown Analyte Negati ve Not Available [facility] [address], [place], [address], 06/08/2019 14:26:55 06/08/2006/08/2019 urina lysis , dipst ick, auto Unknown Analyte Negati ve Not Available [facility] [address], [place], [address], 06/08/2019 14:26:55 06/08/2006/08/2019 urina lysis , dipst ick, auto Unknown Analyte Negati ve Not Available [facility] [address] [place] [address] [address], [place], [address], 06/08/2019 14:26:55 06/08/2006/08/2019 urina lysis , dipst ick, auto Unknown Analyte Trace Not Available [facility] [address], [place], [address], 06/08/2019 14:26:55 06/08/2006/08/2019 urina lysis , dipst ick, auto Unknown Analyte Negati ve - Trace Not Available [facility] With [address], [place], [address], 06/08/2019 14:26:55 06/08/2006/08/2019 urina lysis , dipst ick, auto Unknown Analyte Normal Not Available [facility] With [address], [place], [address], 06/08/2019 14:26:55 06/08/2006/08/2019 urina lysis , dipst ick, auto Unknown Analyte Normal Not Available [facility] With [address], [place], [address], 06/08/2019 14:26:55 06/08/2006/08/2019 urina lysis , dipst ick, auto Unknown Analyte Negati ve Not Available [facility] [address], [address], 06/08/2019 14:26:55 06/08/2006/08/2019 urina lysis , dipst ick, auto Unknown Analyte Negati ve Not Available [facility] [address], [place], [address], 06/08/2019 14:26:55 06/08/2006/08/2019 urina lysis , dipst ick, auto Unknown Analyte Normal Not Available [facility] [address], [place], [address], 06/08/2019 14:26:55 06/08/2006/08/2019 urina lysis , dipst ick, auto Unknown Analyte Normal - 1mg/dl Not Available [facility] With [address], [place], [address], 06/08/2019 14:26:55 06/08/2006/08/2019 urina lysis , dipst ick, auto Unknown Analyte Negati ve Not Available [facility] [address], [place], [address], 06/08/2019 14:26:55 06/08/2006/08/2019 urina lysis , dipst ick, auto Unknown Analyte Negati ve Not Available [facility] [address], [place], [address], 06/08/2019 14:26:55 06/08/2006/08/2019 urina lysis , dipst ick, auto Unknown Analyte Negati ve Not Available [facility] [address], [place], [address], 06/08/2019 14:26:55 06/08/20 19 06/08/2019 urina lysis , dipst ick, auto Unknown Analyte Negati ve Not Available [facility] With [address], [place], [address], 06/08/2019 14:26:55 06/08/20 19 06/08/2019 urina lysis , dipst ick, auto Unknown Analyte Clean Catch Not Available [facility] [address] [place] [address] [address], [place], [address], 06/08/2019 14:26:55 06/08/20 19 06/08/2019 urina lysis , dipst ick, auto Unknown Analyte Automa román Not Available [facility] [address], [place], [address], 06/08/2019 14:26:55 08/17/20 18 08/17/2018 urina lysis , dipst ick, auto Unknown Analyte Straw Not Available [facility] [address], [place], [address], 08/17/2018 09:52:16 08/17/20 18 08/17/2018 urina lysis , dipst ick, auto Unknown Analyte Clear Not Available [facility] [address] [place] [address] [address], [place], [address], 08/17/2018 09:52:16 08/17/20 18 08/17/2018 urina lysis , dipst ick, auto Unknown Analyte 1.010 Not Available [facility] With [address], [place], [address], 08/17/2018 09:52:16 08/17/20 18 08/17/2018 urina lysis , dipst ick, auto Unknown Analyte 1.003 - 1.035 Not Available [facility] [address], [place], [address], 08/17/2018 09:52:16 08/17/20 18 08/17/2018 urina lysis , dipst ick, auto Unknown Analyte 5.0 Not Available [facility] [address] [place] [address] [address], [place], [address], 08/17/2018 09:52:16 08/17/20 18 08/17/2018 urina lysis , dipst ick, auto Unknown Analyte 5.0 - 8.0 Not Available [facility] With [address], [place], [address], 08/17/2018 09:52:16 08/17/20 18 08/17/2018 urina lysis , dipst ick, auto Unknown Analyte Negati ve Not Available [facility] With [address], [place], [address], 08/17/2018 09:52:16 08/17/20 18 08/17/2018 urina lysis , dipst ick, auto Unknown Analyte Negati ve Not Available [facility] [address] [place] [address] [address], [place], [address], 08/17/2018 09:52:16 08/17/20 18 08/17/2018 urina lysis , dipst ick, auto Unknown Analyte Negati ve Not Available [facility] [address] [place] [address] [address], [place], [address], 08/17/2018 09:52:16 08/17/20 18 08/17/2018 urina lysis , dipst ick, auto Unknown Analyte Negati ve Not Available [facility] [address], [place], [address], 08/17/2018 09:52:16 08/17/20 18 08/17/2018 urina lysis , dipst ick, auto Unknown Analyte Negtiv e Not Available [facility] With [address], [place], [address], 08/17/2018 09:52:16 08/17/20 18 08/17/2018 urina lysis , dipst ick, auto Unknown Analyte Negati ve - Trace Not Available [facility] With [address], [place], [address], 08/17/2018 09:52:16 08/17/20 18 08/17/2018 urina lysis , dipst ick, auto Unknown Analyte 250 mg/dl Not Available [facility] [address], [place], [address], 08/17/2018 09:52:16 08/17/20 18 08/17/2018 urina lysis , dipst ick, auto Unknown Analyte Normal Not Available [facility] With [address], [place], [address], 08/17/2018 09:52:16 08/17/20 18 08/17/2018 urina lysis , dipst ick, auto Unknown Analyte Negati ve Not Available [facility] With [address], [place], [address], 08/17/2018 09:52:16 08/17/20 18 08/17/2018 urina lysis , dipst ick, auto Unknown Analyte Negati ve Not Available [facility] [address] [place] [address] [address], [place], [address], 08/17/2018 09:52:16 08/17/20 18 08/17/2018 urina lysis , dipst ick, auto Unknown Analyte Normal Not Available [facility] [address] [place] [address] [address], [place], [address], 08/17/2018 09:52:16 08/17/20 18 08/17/2018 urina lysis , dipst ick, auto Unknown Analyte Normal - 1mg/dl Not Available [facility] [address] [place] [address] [address], [place], [address], 08/17/2018 09:52:16 08/17/20 18 08/17/2018 urina lysis , dipst ick, auto Unknown Analyte Negati ve Not Available [facility] [address], [place], [address], 08/17/2018 09:52:16 08/17/20 18 08/17/2018 urina lysis , dipst ick, auto Unknown Analyte Negati ve Not Available [facility] [address] [place] [address] [address], [place], [address], 08/17/2018 09:52:16 08/17/20 18 08/17/2018 urina lysis , dipst ick, auto Unknown Analyte Negati ve Not Available [facility] [address] [place] [address] [address], [place], [address], 08/17/2018 09:52:16 08/17/20 18 08/17/2018 urina lysis , dipst ick, auto Unknown Analyte Negati ve Not Available [facility] With [address], [place], [address], 08/17/2018 09:52:16 08/17/20 18 08/17/2018 urina lysis , dipst ick, auto Unknown Analyte Clean Catch Not Available [facility] With [address], [place], [address], 08/17/2018 09:52:16 08/17/20 18 08/17/2018 urina lysis , dipst ick, auto Unknown Analyte Automa román Not Available [facility] [address] [place] [address] [address], [place], [address], 08/17/2018 09:52:16 08/12/20 18 08/12/2018 urina lysis , dipst ick, auto Unknown Analyte Yellow Not Available [facility] [address], [place], [address], 08/12/2018 13:34:52 08/12/20 18 08/12/2018 urina lysis , dipst ick, auto Unknown Analyte Clear Not Available [facility] [address] [place] [address] [address], [place], [address], 08/12/2018 13:34:52 08/12/20 18 08/12/2018 urina lysis , dipst ick, auto Unknown Analyte 1.010 Not Available [facility] [address], [place], [address], 08/12/2018 13:34:52 08/12/20 18 08/12/2018 urina lysis , dipst ick, auto Unknown Analyte 1.003 - 1.035 Not Available [facility] [address], [place], [address], 08/12/2018 13:34:52 08/12/20 18 08/12/2018 urina lysis , dipst ick, auto Unknown Analyte 5.0 Not Available [facility] With [address], [place], [address], 08/12/2018 13:34:52 08/12/20 18 08/12/2018 urina lysis , dipst ick, auto Unknown Analyte 5.0 - 8.0 Not Available [facility] [address], [place], [address], 08/12/2018 13:34:52 08/12/20 18 08/12/2018 urina lysis , dipst ick, auto Unknown Analyte 25 Kristal/ul Trace Not Available [facility] [address], [place], [address], 08/12/2018 13:34:52 08/12/20 18 08/12/2018 urina lysis , dipst ick, auto Unknown Analyte Negati ve Not Available [facility] [address] [place] [address] [address], [place], [address], 08/12/2018 13:34:52 08/12/20 18 08/12/2018 urina lysis , dipst ick, auto Unknown Analyte Negati ve Not Available [facility] [address] [place] [address] [address], [place], [address], 08/12/2018 13:34:52 08/12/20 18 08/12/2018 urina lysis , dipst ick, auto Unknown Analyte Negati ve Not Available [facility] With [address], [place], [address], 08/12/2018 13:34:52 08/12/20 18 08/12/2018 urina lysis , dipst ick, auto Unknown Analyte Negtiv e Not Available [facility] [address] [place] [address] [address], [place], [address], 08/12/2018 13:34:52 08/12/20 18 08/12/2018 urina lysis , dipst ick, auto Unknown Analyte Negati ve - Trace Not Available [facility] With [address], [place], [address], 08/12/2018 13:34:52 08/12/20 18 08/12/2018 urina lysis , dipst ick, auto Unknown Analyte Normal Not Available [facility] [address] [place] [address] [address], [place], [address], 08/12/2018 13:34:52 08/12/20 18 08/12/2018 urina lysis , dipst ick, auto Unknown Analyte Normal Not Available [facility] [address] [place] [address] Rd [address], [place], [address], 08/12/2018 13:34:52 08/12/20 18 08/12/2018 urina lysis , dipst ick, auto Unknown Analyte Negati ve Not Available [facility] [address] [place] [address] [address], [place], [address], 08/12/2018 13:34:52 08/12/20 18 08/12/2018 urina lysis , dipst ick, auto Unknown Analyte Negati ve Not Available [facility] With [address], [place], [address], 08/12/2018 13:34:52 08/12/20 18 08/12/2018 urina lysis , dipst ick, auto Unknown Analyte Normal Not Available [facility] [address] [place] [address] Rd [address], [place], [address], 08/12/2018 13:34:52 08/12/20 18 08/12/2018 urina lysis , dipst ick, auto Unknown Analyte Normal - 1mg/dl Not Available [facility] With [address], [place], [address], 08/12/2018 13:34:52 08/12/20 18 08/12/2018 urina lysis , dipst ick, auto Unknown Analyte Negati ve Not Available [facility] With [address], [place], [address], 08/12/2018 13:34:52 08/12/20 18 08/12/2018 urina lysis , dipst ick, auto Unknown Analyte Negati ve Not Available [facility] [address] [place] [address] Rd [address], [place], [address], 08/12/2018 13:34:52 08/12/20 18 08/12/2018 urina lysis , dipst ick, auto Unknown Analyte Negati ve Not Available [facility] With [address], [address], 08/12/2018 13:34:52 08/12/20 18 08/12/2018 urina lysis , dipst ick, auto Unknown Analyte Negati ve Not Available [facility] With [address], [place], [address], 08/12/2018 13:34:52 08/12/20 18 08/12/2018 urina lysis , dipst ick, auto Unknown Analyte Clean Catch Not Available [facility] With [address], [place], [address], 08/12/2018 13:34:52 08/12/20 18 08/12/2018 urina lysis , dipst ick, auto Unknown Analyte Automa román Not Available [facility] With [address], [place], [address], 08/12/2018 13:34:52 12/13/19 22 12/12/2021 urina lysis panel , auto Unknown Analyte Clean Catch Not Available [facility] With [address], [place], [address], 12/12/2021 14:27:59 12/13/19 22 12/12/2021 urina lysis panel , auto Unknown Analyte Yellow Not Available [facility] [address] [place] [address] [address], [place], [address], 12/12/2021 14:27:59 12/13/19 22 12/12/2021 urina lysis panel , auto Unknown Analyte Clear Not Available [facility] With [address], [place], [address], 12/12/2021 14:27:59 12/13/19 22 12/12/2021 urina lysis panel , auto Unknown Analyte 1.010 Not Available [facility] With [address], [place], [address], 12/12/2021 14:27:59 12/13/19 22 12/12/2021 urina lysis panel , auto Unknown Analyte 1.003- 1.035 Not Available [facility] With [address], [place], [address], 12/12/2021 14:27:59 12/13/19 22 12/12/2021 urina lysis panel , auto Unknown Analyte 6.0 Not Available [facility] With [address], [place], [address], 12/12/2021 14:27:59 12/13/19 22 12/12/2021 urina lysis panel , auto Unknown Analyte 5.0-8. 0 Not Available [facility] With [address], [place], [address], 12/12/2021 14:27:59 12/13/19 22 12/12/2021 urina lysis panel , auto Unknown Analyte Negati ve Not Available [facility] With [address], [place], [address], 12/12/2021 14:27:59 12/13/19 22 12/12/2021 urina lysis panel , auto Unknown Analyte Negati ve Not Available [facility] [address] [place] [address] [address], [place], [address], 12/12/2021 14:27:59 12/13/19 22 12/12/2021 urina lysis panel , auto Unknown Analyte Negati ve Not Available [facility] With [address], [place], [address], 12/12/2021 14:27:59 12/13/19 22 12/12/2021 urina lysis panel , auto Unknown Analyte Negati ve Not Available [facility] [address] [place] [address] Rd [address], [place], [address], 12/12/2021 14:27:59 12/13/19 22 12/12/2021 urina lysis panel , auto Unknown Analyte Negati ve Not Available [facility] With [address], [place], [address], 12/12/2021 14:27:59 12/13/19 22 12/12/2021 urina lysis panel , auto Unknown Analyte Negati ve Not Available [facility] With [address], [place], [address], 12/12/2021 14:27:59 12/13/19 22 12/12/2021 urina lysis panel , auto Unknown Analyte >1000 mg/dl Not Available [facility] [address] [place] [address] Rd [address], [place], [address], 12/12/2021 14:27:59 12/13/19 22 12/12/2021 urina lysis panel , auto Unknown Analyte Normal Not Available [facility] [address] [place] [address] Rd [address], [place], [address], 12/12/2021 14:27:59 12/13/19 22 12/12/2021 urina lysis panel , auto Unknown Analyte Negati ve Not Available [facility] With [address], [place], [address], 12/12/2021 14:27:59 12/13/19 22 12/12/2021 urina lysis panel , auto Unknown Analyte Negati ve Not Available [facility] [address], [place], [address], 12/12/2021 14:27:59 12/13/19 22 12/12/2021 urina lysis panel , auto Unknown Analyte Normal Not Available [facility] [address] [place] [address] Rd [address], [place], [address], 12/12/2021 14:27:59 12/13/19 22 12/12/2021 urina lysis panel , auto Unknown Analyte Normal 1 mg/dl Not Available [facility] [address], [place], [address], 12/12/2021 14:27:59 12/13/19 22 12/12/2021 urina lysis panel , auto Unknown Analyte Negati ve Not Available [facility] [address] [place] [address] [address], [place], [address], 12/12/2021 14:27:59 12/13/19 22 12/12/2021 urina lysis panel , auto Unknown Analyte Negati ve Not Available [facility] [address], [place], [address], 12/12/2021 14:27:59 12/13/19 22 12/12/2021 urina lysis panel , auto Unknown Analyte Negati ve Not Available [facility] [address] [place] [address] [address], [place], [address], 12/12/2021 14:27:59 12/13/19 22 12/12/2021 urina lysis panel , auto Unknown Analyte Negati ve Not Available [facility] [address], [place], [address], 12/12/2021 14:27:59 Result Notes None recorded. Problems No Known Problems Procedures Surgical History Date Name Laterality Status Provider Name and Address Organization Details Recorded Time 018 PNE Implantation; Sacral Nerve completed Yennifer Velazco [facility] 08/19/2018 14:10:27 018 Uroflowmetry; Complex completed [facility] 08/12/2018 12:01:40 018 Urodynamics Interpretation completed [facility] 08/12/2018 12:01:43 018 Urodynamics completed [facility] 08/12/2018 12:06:22 Cholecystectomy completed [facility] 08/12/2018 13:31:59 Hysterectomy completed [facility] 08/12/2018 13:32:10 Other completed [facility] 08/12/2018 13:33:48 Imaging Results None recorded. [...] Updated DateTime 12/12/2021 165.1 cm 34.9 kg/m2 59856.4 g Juju Hart [facility] 12/12/2021 14:27:21 Date Recorded Body height Body mass index (BMI) Body weight Heart rate Systolic And Diastolic Provider Name and Address Organization Details Last Updated DateTime 06/08/2019 165.1 cm 34.9 kg/m2 37407.4 g 79 /min 127/84 mm[Hg] Yennifer Meyersford [facility] 9 14:25:15 Date Recorded Body height Body mass index (BMI) Body weight Heart rate Systolic And Diastolic Provider Name and Address Organization Details Last Updated DateTime 07/25/2019 165.1 cm 34.9 kg/m2 55144.4 g 79 /min 126/88 mm[Hg] Briana Thorpe [facility] 07/25/2019 15:01:56 Social History Question Answer Notes LastModified by Organizat ion Details LastModified Time Tobacco Smoking Status [facility] 01/11/2018 09:43:36 How Much Tobacco Do You Chew? None shonna Information not available 06/08/2019 Marital Status Informatio [...] by Organization Details LastModified Time Father Arthritis [email or web address] Not availab le 01/11/2018 09:44:04 Father Kidney disease [email or web address] Not available 2017 09:44:13 Mother Hypertensive disorder Not available 2017 09:44:30 Medical History Condition Response Allergies/Hayfever Y Anxiety/Depression N Other N Gout N Thyroid Disease Y Heart Conditions Y Hernia N Migraines N COPD N Glaucoma N Pneumonia N Skin Problems N Immune System Disorder N Anesthesia Complications N Heart Attack ([place]) N Mental Illness N Neurological Problems N Diabetes Y Rheumatic Fever N Bleeding Disorder N Arthritis N Seizures/Epilepsy N Blood Clot N Tuberculosis N Genetic Disorder N AIDS/HIV N Stroke N Asthma Y Blood Thinners N Alcohol Overuse/Alcohol Abuse N Sleep Apnea Y High Cholesterol N Liver Disease N Hypertension N Osteoporosis N Kidney Disease N Gynecological HistoryNo gynecological history recorded. Obstetrics History GPAL:G 0 P 0 0 0 0 Past Encounters Encounter ID Performer Location Encounter Start Date Encounter Closed Date Diagnosis/Indication Diagnosis SNOMED-CT Code Diagnosis ICD10 Code Diagnosis IMO Codes Diagnosis Note [id number] ARACELI FREGOSO MD [facility] [address] [place] [address] 01/11/2018 09:24:25 01/11/2018 12:56:20 Pain in left knee 7910079207 71598 M25.562 Knee pain 55630964 M25.5 [id number] ARACELI FREGOSO MD [facility] [address] [place] [address] 02/15/2018 10:05:26 02/15/2018 12:58:12 Contusion of left knee 0488905576 5521407 S80.02XD [id number] MD [facility]ADDY [facility] [address] [address] 08/12/2018 10:12:32 08/12/2018 11:05:45 Urinary incontinence 466423044 R32 Patient demonstrat es bladder instabilit y with uninhibite d contractio ns stimulated throughout the filling phase with Valsalva. At capacity she demonstrat ed uninhibite d contractio ns with incontinen ce. She also demonstrat ed stress incontinen ce at capacity. [id number] BERNICE POON MD [facility] [address] [place] [address] 08/12/2018 10:18:32 08/12/2018 13:53:18 Urge incontinence of urine 86672094 N39.41 As above Female uri nary stress incontinence 69366038 N39.3 As above [id number] JOMAR RAGSDALE MD [facility] [address] [address] 08/17/2018 09:25:04 08/17/2018 10:24:18 Urge incontinence of urine 15301162 N39.41 Urgent nan chloé to urinate 75420283 R39.15 [id number] JOMAR RAGSDALE MD [facility] [address] [place] [address] RD[address] [place] [address] 08/19/2018 09:35:58 08/19/2018 10:59:30 Urge incontinence of urine 03911528 N39.41 [id number] JOMAR RAGSDALE MD [facility] [address] [place] [address] RD,[address] [address] 08/23/2018 15:38:43 08/23/2018 16:47:38 Urge incontinence of urine 32822583 N39.41 [id number] JOMAR RAGSDALE MD SURGERY SCHEDULE [address] [address] 09/05/2018 08:01:21 09/05/2018 08:02:27 Urge incontinence of urine 70562256 N39.41 [id number] MD MADDY SC[facility] [address] [place] [address] RD,[address] [address] 06/08/2019 13:28:42 06/08/2019 14:36:11 Urge incontinence of urine 69416801 N39.41 Nocturia 051978958 R35.1 [id number] JOMAR RAGSDALE MD SURGERY SCHEDULE [address] [place] [address] 07/10/2019 06:24:04 07/10/2019 06:25:04 Urgent desire to urinate 30661754 R39.15 [id number] JOMAR RAGSDALE MD [facility] [address] [place] [address] RD,[address] [place] [address] 07/25/2019 14:23:37 07/25/2019 15:10:30 Urge incontinence of urine 89424710 N39.41 [id number] JOMAR RAGSDALE MD [facility] [address] [place] [address] 12/12/2021 13:50:33 12/12/2021 14:42:57 Abdominal pain 41742261 R10.9 Urgent nna hcloé to urinate 53300222 R39.15 Health Concerns Section Related Observation LastModified by Organization Detai ls LastModified Time None Recorded Concern Status LastModified by Organization Details LastModified Time None Recorded Advance Directives Directive None Recorded Payers Insurance Date Sequence Insurance Name Policy Number Policy Britton Covered Member ID Britton Member ID Guarantor Name 01/11/2018 [facility] [employer] [facility] Manisha Leija 07/31/2020 1 [facility] [id number] Riley Leija [id number] Manisha Leija 12/08/2021 [employer] (MOVED TO [employer]) Manisha Leija 12/12/2021 1 [place] [id number] Riley Leija [id number] Manisha Leija 12/16/2021 1 [employer] [id number] Manisha Leija [id number] Manisha Leija Notes Date Note Type Note Provider Name and Address Organization Details Recorded Time 09/05/2018 text/html procedure was canceled due to elevated blood sugar JOMAR RAGSDALE MD [address] [place], [address], [facility] 09/07/2018 10:27:48 06/08/2019 text/html she has [...] The nocturia was 0-1 time at night JOMAR RAGSDALE MD [address] [place], [address], [facility] 06/08/2019 17:12:58 07/25/2019 text/html she is back following the InterStim placement. The incisions are healing without any sign of infection. She is not having any urge incontinence. There is no significant frequency. 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 She continues to have difficulty we will cystoscope JOMAR RAGSDALE MD [address] [place], [address], [facility] 12/12/2021 14:55:46 OBGyn Episode No OBEpisode recorded.
--- OUTSIDE RECORDS SUMMARY | 2025-09-04 08:05 | XMS_ITS | Clinical Summary ---
Author Organization [facility] Address [address] [place] [address] Phone Care Team Providers Care A R Collections Rep Name Role Phone Anshul Stephen MD Primary Care Provider + [phone] Luis Daniel Silvestre MD Unavailable [phone] Allergies No known active allergies Medications VENTOLIN HFA 90 mcg/actuation Inhl HFA Aerosol Inhaler Inhale 2 Puffs into the lungs every 6 hours as needed. 04/28/2017 Active DULoxetine (CYMBALTA) 20 mg Oral Capsule, Delayed Release(E.C.) Take 20 mg by mouth daily. 04/28/2017 Active fluticasone (FLONASE) 50 mcg/actuation Nasl Carney, Suspension 1 Carney by Nasal route daily as needed. 04/28/2017 [...] Impressions 03/24/2013 3:51 PM EDT : Negative ([id number]) ~ RECOMMENDATION: Routine screening mammogram in 1 [...] densities. No suspicious calcifications. ~ IMPRESSION: Negative ([id number]) ~ RECOMMENDATION: Routine screening mammogram in 1 [...] Radiologist and CAD. Nicholas Bains Sr., MD [facility] Final Result from Last 3 Months or Most Recently Relevant to Health Maintenance Insurance [facility] [employer] Member Subscriber Plan / Payer (Ef fective 2016-Present) Name:Manisha Desouza Relation to Subscriber:Spouse Name:RILEY DESOUZA Date of :1971 (Home) Address: [id number] [facility] [place] [address] Payer ID:[id number] (NAIC) Type:Not on file Address: [address] [place] [phone] [facility] [employer] Care Teams A R Collections Rep Relationship Specialty Start Date End Date Anshul Stephen MD [address] [facility] [address] [place] [address] PCP - General Emergency Medicine 05/20/17 Luis Daniel Silvestre MD [address] [facility] [address] Consulting Physician Internal Medicine - Clinical Cardiac Electrophysiology 07/26/17
== END 2025-09-04 23:59 | disposition home or self-care (01) ==
LOC: RAD 08:03
PROVIDERS: PCP Family Medicine; Visit Provider Obstetrics & Gynecology
DX: Z12.31 Encounter for screening mammogram for malignant neoplasm of breast (principal); R92.323 Mammographic fibroglandular density, bilateral breasts; N64.89 Other specified disorders of breast
CPT/HCPCS: 77063; 77067